=== PATIENT | male | born 1990 | race Caucasian/White ===

== ENCOUNTER 2017-08-29 14:44 | Emergency (ER) | payer OTHER, MEDICAID, SELFPAY | END 2017-08-29 19:30 | disposition home or self-care (01) | PROVIDERS: Emergency Provider Emergency Medicine; Family Provider Family Medicine; PCP Family Medicine; Visit Provider Emergency Medicine | DX: F10.920 Alcohol use, unspecified with intoxication, uncomplicated (principal) | CPT/HCPCS: 80053; 80305; 80320; 85025; 85610; 85730; 99058; 99284 ==

== ENCOUNTER 2017-08-29 22:35 | Emergency (ER) | payer OTHER, MEDICAID, SELFPAY | END 2017-08-30 08:00 | disposition home or self-care (01) | PROVIDERS: Emergency Provider Emergency Medicine; Family Provider Family Medicine; PCP Family Medicine; Visit Provider Emergency Medicine | DX: F10.929 Alcohol use, unspecified with intoxication, unspecified (principal) | CPT/HCPCS: 80053; 80305; 80320; 85025; 85610; 85730; 99058; 99284 ==

== ENCOUNTER 2017-09-11 13:21 | Inpatient (IN) | payer OTHER, MEDICAID, SELFPAY | END 2017-09-12 19:12 | DRG 896 | PROVIDERS: Admitting Provider Internal Medicine; Emergency Provider Emergency Medicine; Family Provider Family Medicine; PCP Family Medicine; Visit Provider Internal Medicine | DX: F10.220 Alcohol dependence with intoxication, uncomplicated (principal); R40.2112 Coma scale, eyes open, never, at arrival to emergency department; R40.2212 Coma scale, best verbal response, none, at arrival to emergency department; E87.0 Hyperosmolality and hypernatremia; Y90.8 Blood alcohol level of 240 mg/100 ml or more; F50.9 Eating disorder, unspecified; F32.9 Major depressive disorder, single episode, unspecified; R40.2332 Coma scale, best motor response, abnormal flexion, at arrival to emergency department; F17.210 Nicotine dependence, cigarettes, uncomplicated; Z91.5 Personal history of self-harm; F41.9 Anxiety disorder, unspecified | CPT/HCPCS: 36415; 36600; 43753; 70450; 71010; 71045; 80048; 80053; 80305; 80320; 80329; 82805; 85025; 87797; 94002; 94799; 96374; 96375; 99058; 99291; G0480; J1650; J2250; J2704 ==

== ENCOUNTER 2017-10-21 22:20 | Inpatient (IN) | payer OTHER, MEDICAID, SELFPAY ==
--- NOTE | 2017-10-21 22:23 | DI.RAD.S_ITS ---
PROCEDURE: XR CHEST 1V INDICATIONS: intubated TECHNIQUE: One view of the chest was acquired. COMPARISON: [facility], CHEST 1 VIEW, 09/11/2017, 13:36. [facility], CHEST 1 VIEW, 07/16/2017, 8:46. [facility], CHEST 1 VIEW, 07/14/2017, 8:35. FINDINGS: Surgical changes and devices: Endotracheal tube in normal position except its tip is at the upper margin of the medial clavicular heads rather than the lower margin. Lungs and pleura: No pleural effusions or pneumothorax. Lungs are abnormal with asymmetric increased radiodensity over the right lung suggestive of right lung aspiration or pneumonia. Mediastinum: Mediastinal contours appear normal. Heart size is normal. Bones and chest wall: No suspicious bony lesions. Overlying soft tissues appear unremarkable. IMPRESSION: Mild right lung aspiration or pneumonia, endotracheal tube tip at the upper margin of the medial clavicular heads bilaterally. Consider advancing approximately 2 cm. Dictated by: Josse Grubbs M.D. on 10/22/2017 at 8:40 Approved by: Josse Grubbs M.D. on 10/22/2017 at 8:41
--- NOTE | 2017-10-21 22:23 | DI.CT.S_ITS ---
PROCEDURE: CT HEAD/BRAIN WO CON INDICATIONS: Acute mental status change TECHNIQUE: Noncontrast 4.5 mm thick angled axial sections acquired from the foramen magnum to the vertex, with coronal and sagittal reformats. For radiation dose reduction, the following was used: automated exposure control, adjustment of mA and/or kV according to patient size. COMPARISON: [facility], CT, HEAD WITHOUT CONTRAST, 09/11/2017, 15:14. [facility], CT, HEAD WITHOUT CONTRAST, 07/13/2017, 8:24. [facility], CT, HEAD WITHOUT CONTRAST, 07/10/2017, 20:29. [facility], CT, HEAD WITHOUT CONTRAST, 05/30/2017, 16:33. [facility], CT, HEAD WITHOUT CONTRAST, 05/22/2017, 21:41. [facility], CT, HEAD WITHOUT CONTRAST, 05/11/2017, 20:36. [facility], CT, HEAD WITHOUT CONTRAST, 05/07/2017, 13:15. FINDINGS: Image quality: Excellent. CSF spaces: Basal cisterns are patent. No extra-axial fluid collections. Ventricles are normal in size and shape. Brain: No midline shift. No intracranial masses or hemorrhage. Dey-white matter interface is normal. Skull and face: Calvarium and visualized facial bones are intact, without suspicious lesions. Presence of endotracheal tube is noted. Sinuses: Bilateral maxillary sinus mucus retention cysts versus polyps. The mastoids are clear. IMPRESSION: No acute intracranial disease process. Dictated by: Vera Wan MD, PhD on 10/22/2017 at 7:34 Approved by: Vera Wan MD, PhD on 10/22/2017 at 7:38
[2017-10-21 22:25] VITALS: BP 118/85; PULSE 76; RESP 12; TEMP 36.5; O2SAT 100; BMI 22.8
[2017-10-21 22:31] VITALS: PULSE 91; RESP 12; O2SAT 100
--- NOTE | 2017-10-21 22:39 | PC.NURSE ---
Now to CT with MILLA Montalvo and RT
[2017-10-21 22:44] LABS: Add Manual Diff / Slide Review NO; Basophils Percent Auto 0.8 % (0-2); Eosinophils Percent Auto 0.6 % (2-4); Hematocrit 43.1 % (41-53); Hemoglobin 14.8 g/dL (13.5-17.5); Lymphocytes Percent Auto 50.8 % (25-40); Mean Corpuscular HGB Conc 34.3 % (30-36); Mean Corpuscular Hemoglobin 31.4 PG (26-34); Mean Corpuscular Volume 91.3 fL (80-100); Monocytes Percent Auto 8.1 % (3-14); Neutrophils Absolute Auto 2600 /uL (3000-5900); Neutrophils Percent Auto 39.7 % (50-75); Platelet Count 102 X10^3/uL (150-400); Red Blood Cell Count 4.72 X10^6/uL (4.5-5.9); Red Cell Distribution Width 12.6 % (11.6-14.8); White Blood Cell Count 6.6 X10^3/uL (4.5-11.0)
[2017-10-21 22:54] VITALS: BP 120/72; PULSE 68; RESP 12; O2SAT 100
[2017-10-21 22:54] LABS: Acetaminophen < 10 ug/dL (10-30); Alanine Aminotransferase 129 IU/L (21-72); Albumin 4.4 g/dL (3.5-5.0); Albumin Globulin Ratio 1.4 (1.0-2.8); Alkaline Phosphatase 53 U/L (38-126); Aspartate Aminotransferase 109 IU/L (17-59); BUN Creatinine Ratio 21.4 (6-22); Bilirubin Total 0.5 mg/dL (0.2-1.3); Bilirubin Unconjugated 0.2 mg/dL (0.0-1.1); Blood Urea Nitrogen 15 mg/dL (9-20); Calcium 8.2 mg/dL (8.4-10.2); Carbon Dioxide 22 mmol/L (22-32); Chloride 107 mmol/L (98-107); Estimated Glomerular Filt Rate > 60.0 mL/min (>60); Globulin 3.2 g/dL (1.7-4.1); Glucose 96 mg/dL (70-100); HEMOLYSIS 17 (0-50); Lactate (Lactic Acid) 2.1 mmol/L (0.7-2.1); Sodium 149 mmol/L (137-145); Total Protein 7.6 g/dL (6.3-8.2)
[2017-10-21] MEDS: SODIUM CHLORIDE 0.9% 1,000 ML 150 ML IV (22:54)
[2017-10-21 22:59] LABS: Salicylate < 1.0 mg/dL (<20)
[2017-10-21 23:02] LABS: Fractionated Inspired Oxygen 100; HCO3 ABG 23 mmol/L (23-27); Oxygen Saturation ABG 100 % (95-100); PCO2 ABG 40.2 mmHg (35-45); PO2 ABG 207 mmHg (80-105); TCO2 ABG 25 mmol/L (23-27); pH ABG 7.37 (7.35-7.45)
[2017-10-21 23:06] LABS: Ethanol (ETOH) 538 mg/dL
[2017-10-21 23:08] VITALS: BP 117/71; PULSE 92; RESP 13; O2SAT 100
[2017-10-21 23:35] LABS: Urine Amphetamines Negative (Negative); Urine Barbiturates Negative (Negative); Urine Benzodiazepines Negative (Negative); Urine Cocaine Negative (Negative); Urine MDMA Negative (Negative); Urine Methadone Negative (Negative); Urine Methamphetamines Negative (Negative); Urine Morphine/Opi cutoff 2000 Negative (Negative); Urine Oxycodone Negative (Negative); Urine Phencyclidine Negative (Negative); Urine Tetrahydrocannabinol Positive (Negative); Urine Tricyclic Antidepressant Negative (Negative)
[2017-10-21 23:44] VITALS: BP 117/70; PULSE 63; RESP 12; O2SAT 100
[2017-10-22] VITALS (19 sets, daily range): BP systolic 94–162; BP diastolic 54–92; PULSE 61–125; RESP 12–20; TEMP 36.4–37.6; O2SAT 94–100; BMI 22.8; BMI 23.5
[2017-10-22] MEDS: PROPOFOL 1,000 MG/100 ML VIAL 2.1 MG IV (02:30)
--- NOTE | 2017-10-22 03:39 | ED.OVERDOSE ---
HPI - Overdose General Chief Complaint: Toxicology Problem Stated Complaint: Possible Overdose Time Seen by Provider: 10/21/17 22:22 Source: family and EMS Mode of arrival: EMS Limitations: altered mental status History of Present Illness HPI Narrative: Patient with long history of severe alcohol abuse presents to the emergency department via EMS after being found down, unresponsive and not guarding his airway. Family friend had notified EMS and on their arrival they found him in this condition. He is known to drink 1/5 of alcohol morning and another 5th night. There is some question as to whether the patient may have also taken his roommates Percocet. Was administered Narcan immediately on arrival and after there was no improvement the patient was intubated with etomidate and succinylcholine and transported to the emergency department for further evaluation. MD complaint: accidental overdose Onset (ago): hour(s) Timing confirmed by: family member Intent: unknown How Overdose Was Discovered: family/friend present at time Context: Accidental Overdose: uncertain what happened Treatments Prior to Arrival: oxygen, narcan and IV fluids Related Data Previous Rx's Medication Instructions Recorded ondansetron [Zofran ODT] 4 mg SUBLINGUAL Q6HP PRN #20 odt 06/01/17 Allergies Allergy/AdvReac Type Severity Reaction Status Date / Time shrimp [SHRIMP] Allergy Severe THROAT Unverified 08/28/17 12:11 SWELLING/HIVES diazepam [From VALIUM] Allergy Intermediate LEG Unverified 08/28/17 12:11 SWELLING haloperidol [From HALDOL] Allergy Unknown DYSTONIA Unverified 08/28/17 12:11 naproxen [NAPROXEN] AdvReac Mild NAUSEA/GI Unverified 08/28/17 12:11 DISTRESS Review of Systems Review of Systems due to endotracheal tube PFSH Family History Grandfather Type 2 diabetes mellitus without complication, unspecified termite control 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 No obvious signs of trauma or external injury Initial Vital Signs Initial Vital Signs: Vital Signs Temperature 97.7 F 10/21/17 22:25 Pulse Rate 76 10/21/17 22:25 Respiratory Rate 12 10/21/17 22:25 Blood Pressure 118/85 H 10/21/17 22:25 Pulse Oximetry 100 10/21/17 22:25 Const General: patient mechanically ventilated Nutritional Appearance: average body habitus Limitations: altered mental status HENNC Head: normal to inspection Ears: hearing grossly normal bilaterally Nose: external nose normal Face and sinus: normal facial exam Mouth: oral mucosae normal Teeth and gingiva: dentition normal Eyes General: appearance normal, both eyes and all related structures Eyelids: eyelids normal Conjunctivae: conjunctivae normal Sclera: sclerae normal Neck Neck: normal visual inspection, trachea midline, No lymphadenopathy, No midline deformity and No JVD Lymphatic: No lymphedema Resp Effort & Inspection: normal respiratory effort, able to speak in complete sentences, no respiratory distress and no use of accessory muscles Auscultation: clear to auscultation bilaterally, no rales, no rhonchi and no wheezes GI Inspection: non-distended Palpation: soft, no hepatosplenomegaly, No guarding, No pulsatile mass and No tender Auscultation: normal bowel sounds Skin General: no rashes or lesions noted, No jaundice and No petechiae Neuro Other: Patient is sedated and intubated Extrem General: normal to inspection and no pedal edema Scores GCS [place] coma scale eye opening: None [place] coma scale verbal response: None [place] coma scale motor response: None Izzy coma scale total score: 3 Course Orders Ordered: ED Orders 10/21/17 22:23 CT head/brain wo con Stat XR chest 1V Stat 10/21/17 22:34 Acetaminophen Stat Complete Blood Count AUTO DIFF Stat Comprehensive Metabolic Panel Stat Ethanol (ETOH) Stat Hepatic (Liver) Panel Stat Lactate (Lactic Acid) Stat Salicylate Stat 10/21/17 22:56 ABG [Arterial Blood Gas] Stat 10/21/17 23:00 Rapid Drug Screen, Urine Stat 10/22/17 01:00 MRSA PCR Stat 10/22/17 02:12 Consult to Dietitian, Adult Routine Consult to [employer] Routine Acetaminophen (Tylenol) 650 mg [place] Q6HR PRN PRN Reason: As Needed for Fever/Mild Pain Sodium Chloride (Normal Saline 0.9%) 1,000 mls @ 150 mls/hr IV CONT HOLGER Last Infusion: 10/22/17 01:00 Dose: 150 mls/hr Infusion: 10/22/17 00:49 Dose: 0 mls/hr Admin: 10/21/17 22:54 Dose: 150 mls/hr Propofol (Propofol) 1,000 mg in 100 mls @ 2.1 mls/hr IV TITRATE HOLGER; Protocol Last Admin: 10/22/17 02:30 Dose: 2.1 mls/hr Consultations Consultation #1: Dr. Sagastume at happy to accept this patient on his service Vital Signs - 8 hr 10/21/17 22:25 10/21/17 22:54 10/21/17 23:08 Temperature 97.7 F Pulse Rate 76 68 92 H Respiratory Rate 12 12 13 Blood Pressure 118/85 H Blood Pressure [Left Arm] 120/72 117/71 Pulse Oximetry 100 100 100 10/21/17 23:44 10/22/17 00:58 10/22/17 02:00 Temperature 98 F 97.8 F Pulse Rate 63 61 66 Respiratory Rate 12 15 12 Blood Pressure 123/84 H 122/68 H Blood Pressure [Left Arm] 117/70 Pulse Oximetry 100 99 98 10/22/17 03:04 Temperature Pulse Rate 71 Respiratory Rate 12 Blood Pressure 100/62 Blood Pressure [Left Arm] Pulse Oximetry 98 MDM - Overdose Differential Diagnosis Likely poisoning by opiate or related narcotic, drug overdose, acetaminophen overdose and accidental drug ingestion Medical Records Attestation: I reviewed the patient's medical records. Lab Data Attestation: I reviewed the patient's lab results. Result diagrams: 10/21/17 22:34 10/21/17 22:34 Lab Results 10/21/17 10/21/17 10/21/17 Range/Units 22:34 22:34 22:34 WBC 6.6 (4.5-11.0) X10^3/uL RBC 4.72 (4.5-5.9) X10^6/uL Hgb 14.8 (13.5-17.5) g/dL Hct 43.1 (41-53) % MCV 91.3 (80-100) fL MCH 31.4 (26-34) PG MCHC 34.3 (30-36) % RDW 12.6 (11.6-14.8) % Plt Count 102 L (150-400) X10^3/uL Neut % (Auto) 39.7 L (50-75) % Lymph % (Auto) 50.8 H (25-40) % [place] % (Auto) 8.1 (3-14) % Eos % (Auto) 0.6 L (2-4) % Baso % (Auto) 0.8 (0-2) % Neut # (Auto) 2600 L (6808-0434) /uL ABG pH (7.35-7.45) ABG pCO2 (35-45) mmHg ABG pO2 (80-105) mmHg ABG HCO3 (23-27) mmol/L ABG Total CO2 (23-27) mmol/L ABG O2 Saturation (95-100) % ABG Base Excess (-2-3) mmol/L FiO2 Sodium 149 H (137-145) mmol/L Potassium 4.0 (3.4-5.1) mmol/L Chloride 107 (98-107) mmol/L Carbon Dioxide 22 (22-32) mmol/L BUN 15 (9-20) mg/dL Creatinine 0.70 (0.66-1.25) mg/dL Estimated GFR > 60.0 (>60) mL/min BUN/Creatinine Ratio 21.4 (6-22) Glucose 96 (70-100) mg/dL Lactate 2.1 (0.7-2.1) mmol/L Calcium 8.2 L (8.4-10.2) mg/dL Total Bilirubin 0.5 (0.2-1.3) mg/dL Conjugated Bilirubin 0.0 (0.0-0.3) md/dL Unconjugated Bilirubin 0.2 (0.0-1.1) mg/dL AST 109 H (17-59) IU/L ALT 129 H (21-72) IU/L Alkaline Phosphatase 53 (38-126) U/L Total Protein 7.6 (6.3-8.2) g/dL Albumin 4.4 (3.5-5.0) g/dL Globulin 3.2 (1.7-4.1) g/dL Albumin/Globulin Ratio 1.4 (1.0-2.8) Nasal Screen MRSA (PCR) (Negative) Salicylates < 1.0 (<20) mg/dL Urine Opiates Screen (Negative) Ur Oxycodone Screen (Negative) Urine Methadone Screen (Negative) Acetaminophen < 10 L (10-30) ug/dL Ur Barbiturates Screen (Negative) U Tricyclic Antidepress (Negative) Ur Phencyclidine Scrn (Negative) Ur Amphetamines Screen (Negative) U Methamphetamines Scrn (Negative) Ur MDMA Scrn (Ecstasy) (Negative) U Benzodiazepines Scrn (Negative) Urine Cocaine Screen (Negative) U Marijuana (THC) Screen (Negative) Ethyl Alcohol 538 H* mg/dL 10/21/17 10/21/17 10/22/17 Range/Units 22:56 23:00 01:00 WBC (4.5-11.0) X10^3/uL RBC (4.5-5.9) X10^6/uL Hgb (13.5-17.5) g/dL Hct (41-53) % MCV (80-100) fL MCH (26-34) PG MCHC (30-36) % RDW (11.6-14.8) % Plt Count (150-400) X10^3/uL Neut % (Auto) (50-75) % Lymph % (Auto) (25-40) % [place] % (Auto) (3-14) % Eos % (Auto) (2-4) % Baso % (Auto) (0-2) % Neut # (Auto) (3943-8463) /uL ABG pH 7.37 (7.35-7.45) ABG pCO2 40.2 (35-45) mmHg ABG pO2 207 H (80-105) mmHg ABG HCO3 23 (23-27) mmol/L ABG Total CO2 25 (23-27) mmol/L ABG O2 Saturation 100 (95-100) % ABG Base Excess -2.0 (-2-3) mmol/L FiO2 100 Sodium (137-145) mmol/L Potassium (3.4-5.1) mmol/L Chloride (98-107) mmol/L Carbon Dioxide (22-32) mmol/L BUN (9-20) mg/dL Creatinine (0.66-1.25) mg/dL Estimated GFR (>60) mL/min BUN/Creatinine Ratio (6-22) Glucose (70-100) mg/dL Lactate (0.7-2.1) mmol/L Calcium (8.4-10.2) mg/dL Total Bilirubin (0.2-1.3) mg/dL Conjugated Bilirubin (0.0-0.3) md/dL Unconjugated Bilirubin (0.0-1.1) mg/dL AST (17-59) IU/L ALT (21-72) IU/L Alkaline Phosphatase (38-126) U/L Total Protein (6.3-8.2) g/dL Albumin (3.5-5.0) g/dL Globulin (1.7-4.1) g/dL Albumin/Globulin Ratio (1.0-2.8) Nasal Screen MRSA (PCR) Negative for mrsa (Negative) Salicylates (<20) mg/dL Urine Opiates Screen Negative (Negative) Ur Oxycodone Screen Negative (Negative) Urine Methadone Screen Negative (Negative) Acetaminophen (10-30) ug/dL Ur Barbiturates Screen Negative (Negative) U Tricyclic Antidepress Negative (Negative) Ur Phencyclidine Scrn Negative (Negative) Ur Amphetamines Screen Negative (Negative) U Methamphetamines Scrn Negative (Negative) Ur MDMA Scrn (Ecstasy) Negative (Negative) U Benzodiazepines Scrn Negative (Negative) Urine Cocaine Screen Negative (Negative) U Marijuana (THC) Screen Positive H (Negative) Ethyl Alcohol mg/dL ABG Data Attestation: I personally reviewed and interpreted this ABG as follows: Imaging Data CT scan - head: Radiologist's impression: No acute process Discharge Plan Departure Patient Disposition: Admitted As Inpatient Clinical Impression: Acute respiratory failure with hypoxia, Alcohol overdose Discharge Date/Time: 10/22/17 00:44 Interventions: ED Discharge Assessment Last Done: 10/22/17 00:44 Admit Date/Time: 10/22/17 00:13 Admit Provider: Dhaval Sagastume V
--- NOTE | 2017-10-22 04:20 | PC.ADMIT ---
[id number] 0045-Patient brought to ICU, ETT in place, on ventilator per Dr Sagastume to maintain vent settings throughout night, currently FIO2 40% TV 500 PEEP 5 RR 12, patient is breathing with vent, SpO2 100%. OGT to LIS, small amount of thin blood tinged fluid returned, copious oral secretions sx. Patient is unresponsive, except will move head and extremeties to painful stimuli. See assessment notes and interventions. Admission Note: The patient,Abhinav Herr,27 y/o, was given written information regarding hospital policies, unit procedures and contact persons. Patient's smoking status: . Vital Signs - 8 hr 10/21/17 22:25 10/21/17 22:54 10/21/17 23:08 Temperature 97.7 F Pulse Rate 76 68 92 H Respiratory Rate 12 12 13 Blood Pressure 118/85 H Blood Pressure [Left Arm] 120/72 117/71 Pulse Oximetry 100 100 100 10/21/17 23:44 10/22/17 00:58 10/22/17 02:00 Temperature 98 F 97.8 F Pulse Rate 63 61 66 Respiratory Rate 12 15 12 Blood Pressure 123/84 H 122/68 H Blood Pressure [Left Arm] 117/70 Pulse Oximetry 100 99 98 10/22/17 03:04 10/22/17 04:00 Temperature 97.6 F Pulse Rate 71 64 Respiratory Rate 12 12 Blood Pressure 100/62 119/67 Blood Pressure [Left Arm] Pulse Oximetry 98 98
[2017-10-22] MEDS: MIDAZOLAM 5 MG/5 ML VIAL IV (06:20)
--- NOTE | 2017-10-22 07:37 | PC.NURSE ---
Patient was calmly sedated on vent with propofol gtt at 10mcg/min starting at 0230 r/t increased movement and thrashing head during cough and sx. At 0600, patient suddenly woke, was responsive and following directions, then became agitated and aggresive, attempting to pull out ETT and other lines, cyber security specialist called along with 5 other staff members. Propofol gtt titrated up to >125mcg/min with no effect, IV is patent. Dr Sagastume notified of above information, order obtained for Versed 5mg IV Now-Given with effect, propofol then titrated back down, now at 50mcg/min. Dr Sagastume in to see patient, who is now sedated with VSS. Report given to day RN.
[2017-10-22] MEDS: SODIUM CHLORIDE 0.9% 1,000 ML 150 ML IV (07:52)
--- NOTE | 2017-10-22 09:43 | PM.HP.1 ---
History of Present Illness Date Patient Seen: 10/22/17 Time Patient Seen: 06:45 Chief complaint: Hypoxic Respirtory Failure, Alcohol Overdose Narrative: The patient was hospitalized at this facility last month, 1 of numerous hospitalizations for recurrent recidivistic severe alcoholism with a lawn line of multiple life-threatening presentations, including several episodes of intubation for airway protection due to profound alcohol intoxication, and most recently discharged to to inpatient alcohol rehabilitation treatment at the [facility] in [place]. He was treated there for 3 days then released. Details regarding this are unclear, and it was the intent to pursue [place] 71.05.020 ([place] Law[place] at that time. His reports that for at least the last week he has been drinking 2/5 of liquor daily. There was some question yesterday that he may have taken someone else's Percocet. He was unresponsive, and found down by paramedics, and intubated for airway protection. He is admitted for further management and evaluation. Patient History Medical History Alcoholism (Acute) Depression (Acute) Eating disorder (Acute) Epilepsy (Acute) Low back pain (Acute) Family & Social History Family History: Reviewed 10/22/17 by Dhaval Sagastume MD Safety & Behavioral: Suicidal Ideation Description Frequent Suicide Plan Description High Lethality Tobacco & Substance use: alcohol intake frequency 3 or more drinks per day Substance Use Type unknown Meds Home Medications Medication Instructions Recorded Confirmed Type ondansetron [Zofran ODT] 4 mg SUBLINGUAL Q6HP PRN #20 odt 06/01/17 10/22/17 Rx Allergies Allergy/AdvReac Type Severity Reaction Status Date / Time shrimp [SHRIMP] Allergy Severe THROAT Unverified 08/28/17 12:11 SWELLING/HIVES diazepam [From VALIUM] Allergy Intermediate LEG Unverified 08/28/17 12:11 SWELLING haloperidol [From HALDOL] Allergy Unknown DYSTONIA Unverified 08/28/17 12:11 naproxen [NAPROXEN] AdvReac Mild NAUSEA/GI Unverified 08/28/17 12:11 DISTRESS Review of Systems Review of Systems All systems reviewed & are unremarkable except as noted in HPI and below Exam Vital Signs (past 8 hours): Vital Signs - 8 hr 10/22/17 02:00 10/22/17 03:04 06/05/18 04:00 Temperature 97.8 F 97.6 F Pulse Rate 66 71 64 Respiratory Rate 12 12 12 Blood Pressure 122/68 H 100/62 119/67 Pulse Oximetry 98 98 98 10/22/17 05:00 10/22/17 06:56 10/22/17 07:45 Temperature 97.6 F 98 F Pulse Rate 64 89 78 Respiratory Rate 12 14 12 Blood Pressure 102/54 L 99/64 105/67 Pulse Oximetry 100 99 99 10/22/17 08:32 10/22/17 09:20 Temperature 98.8 F Pulse Rate 80 Respiratory Rate 12 Blood Pressure 105/68 Pulse Oximetry 100 100 Pulse Oximetry 100 Oxygen Delivery Method Mechanical Ventilation Oxygen Flow Rate 15 Narrative Exam Narrative: General: The patient is on a propofol infusion with intermittent midazolam boluses, currently, though reportedly had been agitated moments before arrival, intubated on mechanical ventilation HEENT: Pupils 1 mm, round, reactive, mucous membranes appear pink and moist, oral tracheal tube in place Neck: Supple Lungs: Clear to auscultation anteriorly Cardiac: Regular rate and rhythm without appreciable murmur Abdomen: Soft, nontender Extremities: Thin, without edema Dermatologic: Left ring finger with mild superficial abrasion adjacent to ring on PIP, no other skin lesions evident Neurologic: Sedated, unresponsive though recently moving all 4 extremities without focal deficits evident per nursing Objective Imaging Chest x-ray: Radiologist's impression: Mild right lung aspiration or pneumonia, endotracheal tube tip at the upper margin of the medial clavicular heads bilaterally. Consider advancing approximately [address] scan - head: Radiologist's impression: No acute intracranial disease process. Labs Result Diagrams: 10/21/17 22:34 10/21/17 22:34 Labs: Laboratory Results - last 24 hr 10/21/17 10/21/17 10/21/17 22:34 22:34 22:34 WBC 6.6 RBC 4.72 Hgb 14.8 Hct 43.1 MCV 91.3 MCH 31.4 MCHC 34.3 RDW 12.6 Plt Count 102 L Neut % (Auto) 39.7 L Lymph % (Auto) 50.8 H [place] % (Auto) 8.1 Eos % (Auto) 0.6 L Baso % (Auto) 0.8 Neut # (Auto) 2600 L ABG pH ABG pCO2 ABG pO2 ABG HCO3 ABG Total CO2 ABG O2 Saturation ABG Base Excess FiO2 Sodium 149 H Potassium 4.0 Chloride 107 Carbon Dioxide 22 BUN 15 Creatinine 0.70 Estimated GFR > 60.0 BUN/Creatinine Ratio 21.4 Glucose 96 Lactate 2.1 Calcium 8.2 L Total Bilirubin 0.5 Conjugated Bilirubin 0.0 Unconjugated Bilirubin 0.2 AST 109 H ALT 129 H Alkaline Phosphatase 53 Total Protein 7.6 Albumin 4.4 Globulin 3.2 Albumin/Globulin Ratio 1.4 Nasal Screen MRSA (PCR) Salicylates < 1.0 Urine Opiates Screen Ur Oxycodone Screen Urine Methadone Screen Acetaminophen < 10 L Ur Barbiturates Screen U Tricyclic Antidepress Ur Phencyclidine Scrn Ur Amphetamines Screen U Methamphetamines Scrn Ur MDMA Scrn (Ecstasy) U Benzodiazepines Scrn Urine Cocaine Screen U Marijuana (THC) Screen Ethyl Alcohol 538 H* 10/21/17 10/21/17 10/22/17 22:56 23:00 01:00 WBC RBC Hgb Hct MCV MCH MCHC RDW Plt Count Neut % (Auto) Lymph % (Auto) [place] % (Auto) Eos % (Auto) Baso % (Auto) Neut # (Auto) ABG pH 7.37 ABG pCO2 40.2 ABG pO2 207 H ABG HCO3 23 ABG Total CO2 25 ABG O2 Saturation 100 ABG Base Excess -2.0 FiO2 100 Sodium Potassium Chloride Carbon Dioxide BUN Creatinine Estimated GFR BUN/Creatinine Ratio Glucose Lactate Calcium Total Bilirubin Conjugated Bilirubin Unconjugated Bilirubin AST ALT Alkaline Phosphatase Total Protein Albumin Globulin Albumin/Globulin Ratio Nasal Screen MRSA (PCR) Negative for mrsa Salicylates Urine Opiates Screen Negative Ur Oxycodone Screen Negative Urine Methadone Screen Negative Acetaminophen Ur Barbiturates Screen Negative U Tricyclic Antidepress Negative Ur Phencyclidine Scrn Negative Ur Amphetamines Screen Negative U Methamphetamines Scrn Negative Ur MDMA Scrn (Ecstasy) Negative U Benzodiazepines Scrn Negative Urine Cocaine Screen Negative U Marijuana (THC) Screen Positive H Ethyl Alcohol Assessment & Plan Plan: Assessment/Plan Narrative: 1. Acute severe alcohol intoxication, intubated for airway protection. 2. Chronic severe and refractory alcoholism. 3. Depression. 4. Abnormal liver function tests, likely due to alcoholic hepatitis. 4. Disposition. The patient will remain in the ICU intubated for airway protection. He is clearly at high risk for given that this is the fourth intubation since June due to severe alcohol intoxication. We will ask mental health services to provide a proper evaluation given his severe refractory alcoholism. At this point, he is not medically clear for that, but we would like to have that in place so that when he is extubated, all measures are available to allow for proper evaluation including involuntary custodial due to his high risk of or permanent disability. This situation is a resolved of grave medical disability from alcoholism and probable underlying mental health disorders which have contributed to his extreme presentation. Quality VTE Deep Vein Thrombosis/Pulmonary Embolism Present on Admission: No
--- NOTE | 2017-10-22 09:48 | P.HP_ITS ---
History of Present Illness Date Patient Seen: 10/22/17 Time Patient Seen: 06:45 Chief complaint: Hypoxic Respirtory Failure, Alcohol Overdose Narrative: The patient was hospitalized at this facility last month, 1 of numerous hospitalizations for recurrent recidivistic severe alcoholism with a lawn line of multiple life-threatening presentations, including several episodes of intubation for airway protection due to profound alcohol intoxication, and most recently discharged to to inpatient alcohol rehabilitation treatment at the [facility] in [place]. He was treated there for 3 days then released. Details regarding this are unclear, and it was the intent to pursue [place] 71.05.020 ([place] at that time. His reports that for at least the last week he has been drinking 2/5 of liquor daily. There was some question yesterday that he may have taken someone else's Percocet. He was unresponsive, and found down by paramedics, and intubated for airway protection. He is admitted for further management and evaluation. Patient History Medical History Alcoholism (Acute) Depression (Acute) Eating disorder (Acute) Epilepsy (Acute) Low back pain (Acute) Family & Social History Family History: Reviewed 10/22/17 by Dhaval Sagastume MD Safety & Behavioral: Suicidal Ideation Description Frequent Suicide Plan Description High Lethality Tobacco & Substance use: alcohol intake frequency 3 or more drinks per day Substance Use Type unknown Meds Home Medications Medication Instructions Recorded Confirmed Type ondansetron [Zofran ODT] 4 mg SUBLINGUAL Q6HP PRN #20 odt 06/01/17 10/22/17 Rx Allergies Allergy/AdvReac Type Severity Reaction Status Date / Time shrimp [SHRIMP] Allergy Severe THROAT Unverified 08/28/17 12:11 SWELLING/HIVES diazepam [From VALIUM] Allergy Intermediate LEG Unverified 08/28/17 12:11 SWELLING haloperidol [From HALDOL] Allergy Unknown DYSTONIA Unverified 08/28/17 12:11 naproxen [NAPROXEN] AdvReac Mild NAUSEA/GI Unverified 08/28/17 12:11 DISTRESS Review of Systems Review of Systems All systems reviewed & are unremarkable except as noted in HPI and below Exam Vital Signs (past 8 hours): Vital Signs - 8 hr 3 10/22/17 02:00 10/22/17 03:04 10/22/17 04:00 Temperature 97.8 F 97.6 F Pulse Rate 66 71 64 Respiratory Rate 12 12 12 Blood Pressure 122/68 H 100/62 119/67 Pulse Oximetry 98 98 98 3 10/22/17 05:00 10/22/17 06:56 10/22/17 07:45 Temperature 97.6 F 98 F Pulse Rate 64 89 78 Respiratory Rate 12 14 12 Blood Pressure 102/54 L 99/64 105/67 Pulse Oximetry 100 99 99 3 10/22/17 08:32 10/22/17 09:20 Temperature 98.8 F Pulse Rate 80 Respiratory Rate 12 Blood Pressure 105/68 Pulse Oximetry 100 100 Pulse Oximetry 100 Oxygen Delivery Method Mechanical Ventilation Oxygen Flow Rate 15 Narrative Exam Narrative: General: The patient is on a propofol infusion with intermittent midazolam boluses, currently, though reportedly had been agitated moments before arrival, intubated on mechanical ventilation HEENT: Pupils 1 mm, round, reactive, mucous membranes appear pink and moist, oral tracheal tube in place Neck: Supple Lungs: Clear to auscultation anteriorly Cardiac: Regular rate and rhythm without appreciable murmur Abdomen: Soft, nontender Extremities: Thin, without edema Dermatologic: Left ring finger with mild superficial abrasion adjacent to ring on PIP, no other skin lesions evident Neurologic: Sedated, unresponsive though recently moving all 4 extremities without focal deficits evident per nursing Objective Imaging Chest x-ray: Radiologist's impression: Mild right lung aspiration or pneumonia, endotracheal tube tip at the upper margin of the medial clavicular heads bilaterally. Consider advancing approximately [address] scan - head: Radiologist's impression: No acute intracranial disease process. Labs Result Diagrams: 10/21/17 22:34 10/21/17 22:34 Labs: Laboratory Results - last 24 hr 10/21/17 10/21/17 10/21/17 22:34 22:34 22:34 WBC 6.6 RBC 4.72 Hgb 14.8 Hct 43.1 MCV 91.3 MCH 31.4 MCHC 34.3 RDW 12.6 Plt Count 102 L Neut % (Auto) 39.7 L Lymph % (Auto) 50.8 H Grundy % (Auto) 8.1 Eos % (Auto) 0.6 L Baso % (Auto) 0.8 Neut # (Auto) 2600 L ABG pH ABG pCO2 ABG pO2 ABG HCO3 ABG Total CO2 ABG O2 Saturation ABG Base Excess FiO2 Sodium 149 H Potassium 4.0 Chloride 107 Carbon Dioxide 22 BUN 15 Creatinine 0.70 Estimated GFR > 60.0 BUN/Creatinine Ratio 21.4 Glucose 96 Lactate 2.1 Calcium 8.2 L Total Bilirubin 0.5 Conjugated Bilirubin 0.0 Unconjugated Bilirubin 0.2 AST 109 H ALT 129 H Alkaline Phosphatase 53 Total Protein 7.6 Albumin 4.4 Globulin 3.2 Albumin/Globulin Ratio 1.4 Nasal Screen MRSA (PCR) Salicylates < 1.0 Urine Opiates Screen Ur Oxycodone Screen Urine Methadone Screen Acetaminophen < 10 L Ur Barbiturates Screen U Tricyclic Antidepress Ur Phencyclidine Scrn Ur Amphetamines Screen U Methamphetamines Scrn Ur MDMA Scrn (Ecstasy) U Benzodiazepines Scrn Urine Cocaine Screen U Marijuana (THC) Screen Ethyl Alcohol 538 H* 10/21/17 10/21/17 10/22/17 22:56 23:00 01:00 WBC RBC Hgb Hct MCV MCH MCHC RDW Plt Count Neut % (Auto) Lymph % (Auto) Grundy % (Auto) Eos % (Auto) Baso % (Auto) Neut # (Auto) ABG pH 7.37 ABG pCO2 40.2 ABG pO2 207 H ABG HCO3 23 ABG Total CO2 25 ABG O2 Saturation 100 ABG Base Excess -2.0 FiO2 100 Sodium Potassium Chloride Carbon Dioxide BUN Creatinine Estimated GFR BUN/Creatinine Ratio Glucose Lactate Calcium Total Bilirubin Conjugated Bilirubin Unconjugated Bilirubin AST ALT Alkaline Phosphatase Total Protein Albumin Globulin Albumin/Globulin Ratio Nasal Screen MRSA (PCR) Negative for mrsa Salicylates Urine Opiates Screen Negative Ur Oxycodone Screen Negative Urine Methadone Screen Negative Acetaminophen Ur Barbiturates Screen Negative U Tricyclic Antidepress Negative Ur Phencyclidine Scrn Negative Ur Amphetamines Screen Negative U Methamphetamines Scrn Negative Ur MDMA Scrn (Ecstasy) Negative U Benzodiazepines Scrn Negative Urine Cocaine Screen Negative U Marijuana (THC) Screen Positive H Ethyl Alcohol Assessment & Plan Plan: Assessment/Plan Narrative: 1. Acute severe alcohol intoxication, intubated for airway protection. 2. Chronic severe and refractory alcoholism. 3. Depression. 4. Abnormal liver function tests, likely due to alcoholic hepatitis. 4. Disposition. The patient will remain in the ICU intubated for airway protection. He is clearly at high risk for given that this is the fourth intubation since June due to severe alcohol intoxication. We will ask mental health services to provide a proper evaluation given his severe refractory alcoholism. At this point, he is not medically clear for that, but we would like to have that in place so that when he is extubated, all measures are available to allow for proper evaluation including involuntary longterm due to his high risk of or permanent disability. This situation is a resolved of grave medical disability from alcoholism and probable underlying mental health disorders which have contributed to his extreme presentation. Quality VTE Deep Vein Thrombosis/Pulmonary Embolism Present on Admission: No
[2017-10-22] MEDS: PROPOFOL 1,000 MG/100 ML VIAL 21.9 MG IV (09:56)
--- NOTE | 2017-10-22 11:28 | PC.NURSE ---
pt awake and extubated at to room air @ 1102- pt calm but impulsive and requested murphy be removed- this was completedand is [facility]
[2017-10-22] MEDS: NICOTINE 7 MG PATCH TOP (12:06)
[2017-10-22] MEDS: MAGNESIUM SULFATE 2 GM, FOLIC ACID 1 MG, THIAMINE 100 MG, MULTIVITAMIN 10 ML in SODIUM ... IV (12:06)
[2017-10-22] MEDS: LORazepam 1 MG TABLET PO ×4 (12:30→23:55)
--- NOTE | 2017-10-22 12:36 | CM.SWNOTE ---
FIXING MACHINE OPERATOR/Note: Reviewed chart. Patient is a 27yr old male admitted to [facility] with respiratory failure secondary to alcohol overdose. Patient's alcohol level upon admit was 538. Urine screen negative for additional substances. Patient intubated in the field for airway protection. Pt. extubated this AM. FIXING MACHINE OPERATOR spoke with Dr. Sagastume and he would like DCR/[facility]MHP called for involuntary placement. After extubation this AM RN reports patient telling staff that he is leaving today after lunch. Regardless of whether he's discharged or not. Staff instructed to call security/police until patient can be cleared by appropriate agency. Patient with extensive h/o alcoholism. Patient has had several visits to the ED and hospital for alcohol related issues in the last month (4). Per MD, patient recently sent to inpatient rehab facility and was released in 3 days? Spoke with RN/Mary and she reports that patient up out of bed preparing to leave. MD reports that patient is medically stable for evaluation by DCR/[facility] but at high risk for or permanent disability given his h/o alcoholism. After discussion with MD and RN it was determined that [facility]/DCR be called immediately. Patient meets guidelines for initiating intervention under state law ([place] Law). Patient clearly involuntary and reports that he wants to go home. Patient denies to MD and staff that he needs help. It was determined with ICU/staff and FIXING MACHINE OPERATOR that if FIXING MACHINE OPERATOR attempted to interview patient it would only contribute to his anxiety and desire to leave. Therefore, placed call to [facility]. All information provided and they will dispatch DCR/[facility] right away. P: Pending outcome of assessment done by [facility]/DCR. KANDI Dickerson
--- NOTE | 2017-10-22 12:45 | PC.NURSE ---
awaiting arrival of cdp to assess pt - he is impulsive and somewhat agiatated, , Cam at bedside
[2017-10-22] MEDS: LORazepam 1 MG TABLET 2 MG PO ×2 (13:42→22:28)
--- NOTE | 2017-10-22 16:51 | PC.NURSE ---
1635 - Patient given ativan per orders. Patient put hand to mouth, took a drink and stated that he took the pill. However patient noted to keep his fingers of his right hand closed. This nurse asked patient to open hand and noted ativan pill that he stated he took in his hand. Patient stated Oh, I thought I took that. Patient then put pill in his mouth, cruched it, and drank some water.
--- NOTE | 2017-10-22 17:29 | PC.NURSE ---
Informed of pt needing to transfer to facility in [place] for treatment. Multiple ambulance transports called to attempt to transfer patient [place]. [facility]ie, [facility] and [facility] unable to transport pt. 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 They do not have crews/or vehicles available tonight. [facility] currently present and notified. also notified.
--- NOTE | 2017-10-22 19:36 | PC.NURSE ---
Addendum entered by Prabha Severino R.N. 10/22/17 20:47: Pt c/o IV site irritating him. IV site visually WNL. Site flushes easily with brisk blood return. Informed pt that when this bag of IVF completed, site can be locked. Pt up ad rajesh in room. Male MAILING SECTION CLERK in room with pt; MAILING SECTION CLERK goes into bathroom with pt also. Monitor wires, phone, Suction tubing, etc. removed from room. Call light and IV pole still in use in room. Pt informed that transportation not available until tomorrow morning. Original Note: barrera bass Pt pleasant and cooperative in room. Pt c/o
[2017-10-23 00:07] VITALS: BP 141/95; PULSE 90; RESP 20; TEMP 37.3; O2SAT 98
[2017-10-23 06:08] VITALS: RESP 20
--- NOTE | 2017-10-23 06:44 | PC.NURSE ---
At midnight, patient awake and cooperative, up ad rajesh, curtain open with staff able to have constant obs, patient is compliant with this. CIWA = 3, says he is a bit anxious, 1mg PO Ativan given per prn order. VSS, RA sats 98%, no respiratory distress, occas cough, no nausea, taking in a general diet. Patient was awake watching TV until 0300, has been sleeping since, RR 20, will allow patient to continue sleeping. Remains 1:1 observation, call light in reach, no wires, cords, or sharp items in room
[2017-10-23] MEDS: NICOTINE 7 MG PATCH TOP (08:23)
[2017-10-23] MEDS: THIAMINE 100 MG TABLET PO (08:23)
[2017-10-23] MEDS: FOLIC ACID 1 MG TABLET PO (08:23)
[2017-10-23] MEDS: MULTIVITAMIN 1 TABLET 1 TAB PO (08:23)
[2017-10-23] MEDS: LORazepam 1 MG TABLET 2 MG PO (08:23)
--- NOTE | 2017-10-23 08:31 | PC.NURSE ---
Addendum entered by Yamil Hernandez R.N. 10/23/17 11:37: Report given to Roger at [facility] at 1130. Original Note: Addendum entered by Yamil Hernandez R.N. 10/23/17 09:41: Call placed to [facility]. Left voice message at 0939 with Kalyani to return phone call regarding giving report. Awaiting return call. Original Note: Addendum entered by Yamil Hernandez R.N. 10/23/17 09:34: [facility] here. Dr. Sagastume at bedside. Instructs to given add'l PRN ativan r/t long trip to [place]. Pt is agreeable and med given. Report given to EMT. Pt transfers to [facility] independently. Belongings are gathered and sent with pt. Pt is awake, alert, cooperative with mild anxiety. Pt left with ambulance personnel at 0937 in no acute distress. Original Note: Call placed to [facility]. Left voice message at 0830 with Kalyani to return phone call regarding giving report. Await return call.
[2017-10-23 08:32] VITALS: BP 161/87; PULSE 96; RESP 17; TEMP 37.4; O2SAT 100
[2017-10-23] MEDS: LORazepam 1 MG TABLET PO (09:24)
--- NOTE | 2017-10-23 10:07 | PM.DS.1 ---
History of Present Illness Chief complaint: Hypoxic Respirtory Failure, Alcohol Overdose Narrative: The patient was hospitalized at this facility last month, 1 of numerous hospitalizations for recurrent recidivistic severe alcoholism with a lawn line of multiple life-threatening presentations, including several episodes of intubation for airway protection due to profound alcohol intoxication, and most recently discharged to to inpatient alcohol rehabilitation treatment at the [facility] in [place]. He was treated there for 3 days then released. Details regarding this are unclear, and it was the intent to pursue RCW 71.05.020 ([place]ash[place]'s Law) at that time. His reports that for at least the last week he has been drinking 2/5 of liquor daily. There was some question yesterday that he may have taken someone else's Percocet. He was unresponsive, and found down by paramedics, and intubated for airway protection. He is admitted for further management and evaluation. Discharge Providers Date of admission: 10/22/17 00:13 Primary care physician: Luigi Bains MD Consults: 10/22/17 02:12 Consult to Dietitian, Adult Routine Comment: Reason For Exam: Poor PO intake, alcoholic Consult to Explosive Ordnance Disposal Specialist Routine Comment: 10/22/17 11:07 Consult to Respiratory Therapy Evaluate & Treat Comment: extubate ETT and OGT now, titrate O2 to SaO2 >=92? Physician Instructions: Evaluate and treat 10/22/17 11:08 Consult to Dietitian, Adult Routine Comment: Reason For Exam: alcoholism Discharge provider: Dhaval Sagastume MD Summary Discharge Diagnosis: 1. Acute severe alcohol intoxication, intubated temporarily for airway protection. 2. Chronic severe and refractory alcoholism. 3. Depression. 4. Abnormal liver function tests, likely due to alcoholic hepatitis. Hospital Course: The patient remained in the ICU intubated for airway protection. He was felt to be clearly at high risk for given that this was the fourth intubation since June due to severe alcohol intoxication. The patient was extubated without incident and treated with lorazepam for alcohol withdrawal prophylaxis, as well as thiamine and folate during his hospitalization. Mental health services assess the patient and felt that he was appropriate for inpatient alcohol detoxification on an involuntary basis consistent with current law. No other issues arose Status at Discharge Cognitive/behavioral status at discharge: Con, cooperative, expressing ambivalence regarding the seriousness of his alcohol problem. Functional status at discharge: independent ambulation Overall status at discharge: patient is back to baseline Time Spent with Patient Less than 30 minutes Exam Vital Signs (past 8 hours): Vital Signs - 8 hr 10/23/17 06:08 10/23/17 08:32 Temperature 99.4 F Pulse Rate 96 H Respiratory Rate 20 17 Blood Pressure 161/87 H Pulse Oximetry 100 Pulse Oximetry 100 Oxygen Delivery Method Room Air Oxygen Flow Rate 0 Objective Labs Result Diagrams: 10/21/17 22:34 10/21/17 22:34 Discharge Plan Discharge Plan Patient Disposition: [facility] Under care of provider: TBD Discharge Med Rec/Prescriptions Discharge Orders: Discharge (Order); Ordered 10/22/17 Ordered By: Dhaval Sagastume Discharge Health Status Multidrug resistant organism: No MDRO Provider Discharge Instructions Diet: Regular Liquid consistency: Normal/Thin Food texture: Regular Discharge Data Primary Care Provider: Luigi Bains Attending Provider: Dhaval Sagastume V Admit Date/Time: 10/22/17 00:13 Quality VTE Deep Vein Thrombosis/Pulmonary Embolism Present on Admission: No
--- NOTE | 2017-10-23 15:21 | CM.DPNOTE ---
DC Note: DCR evaluated pt yesterday, pt was detained, and a detox bed at [facility] ([facility]) in [place] was secured for pt. This PROCESS CONTROL TECHNICIAN reviewed [facility] notes and physical chart notes this morning. Legal documents related to pt's detainment were in a sealed and signed envelope. Attempted to contact admissions and/or nurse at [facility] to confirm they had what was needed for admission. BLS had already been arranged under NIRANJAN by the DCR. Later heard from Kalyani at [facility] P# [phone] ext [phone]; as long as the legal docs were along w/pt Kalyani had what was needed. MILLA Velasquez gave report to RN at [facility] this morning. KANDI Weaver
== END 2017-10-23 09:37 | disposition other institution (70) | DRG 816 ==
LOC: ED 10-22 00:10 → ICU 10-22 00:14
PROVIDERS: Admitting Provider Internal Medicine; Emergency Provider Emergency Medicine; Family Provider Family Medicine; PCP Family Medicine; Visit Provider Internal Medicine
DX: T51.0X1A Toxic effect of ethanol, accidental (unintentional), initial encounter (principal); R40.2112 Coma scale, eyes open, never, at arrival to emergency department; R40.2212 Coma scale, best verbal response, none, at arrival to emergency department; F10.220 Alcohol dependence with intoxication, uncomplicated; K70.10 Alcoholic hepatitis without ascites; Y90.8 Blood alcohol level of 240 mg/100 ml or more; F32.9 Major depressive disorder, single episode, unspecified; R40.2332 Coma scale, best motor response, abnormal flexion, at arrival to emergency department
CPT/HCPCS: 36415; 36600; 51701; 70450; 71045; 80053; 80076; 80305; 80320; 80329; 82805; 83605; 85025; 87797; 94002; 94003; 94770; 94799; 96360; 99285; 99291; 99292; 99406; G0480; J2250; J2704; J3475

== ENCOUNTER 2017-11-02 13:19 | Emergency (ER) | payer OTHER, MEDICAID, SELFPAY ==
[2017-10-22 01:50] VITALS: BMI 22.8
[2017-10-22 10:55] VITALS: PULSE 76; RESP 14; O2SAT 100
[2017-11-02 13:28] VITALS: BP 146/87; PULSE 113; RESP 15; TEMP 36.4; O2SAT 97
--- NOTE | 2017-11-02 13:34 | ED.PSYCH ---
HPI - Psych General Chief Complaint: Psychiatric Symptoms Stated Complaint: brought in my Law Enforcement Time Seen by Provider: 11/02/17 13:34 Source: patient and police Mode of arrival: other (police) Limitations: no limitations History of Present Illness HPI Narrative: Patient is a 27-year-old male who is brought in by police for suicidal ideations. He is actually 1 was frequently here and intoxicated however he is upright well-dressed and sober. To us he denies any suicidal ideations. He previously has had while fighting with his that he wanted to jump off the bridge. Now without his here on he says he has never been suicidal in his life he does not want to harm himself. We discussed how he does may need a break from each other in if there is any place for him to stay. [facility] [place]. MD complaint: suicidal ideation Related Data Previous Rx's Medication Instructions Recorded ondansetron [Zofran ODT] 4 mg SUBLINGUAL Q6HP PRN #20 odt 06/01/17 chlordiazepoxide HCl 50 mg PO Q8H PRN #14 cap 10/22/17 Allergies Allergy/AdvReac Type Severity Reaction Status Date / Time shrimp [SHRIMP] Allergy Severe THROAT Unverified 08/28/17 12:11 SWELLING/HIVES diazepam [From VALIUM] Allergy Intermediate LEG Unverified 08/28/17 12:11 SWELLING haloperidol [From HALDOL] Allergy Unknown DYSTONIA Unverified 08/28/17 12:11 naproxen [NAPROXEN] AdvReac Mild NAUSEA/GI Unverified 08/28/17 12:11 DISTRESS Review of Systems Review of Systems All systems reviewed & are unremarkable except as noted in HPI and below PFSH Social History household members: spouse Exam Initial Vital Signs Initial Vital Signs: Vital Signs Temperature 97.5 F L 11/02/17 13:28 Pulse Rate 113 H 11/02/17 13:28 Respiratory Rate 15 11/02/17 13:28 Blood Pressure 146/87 H 11/02/17 13:28 Pulse Oximetry 97 11/02/17 13:28 Const General: cooperative Nutritional Appearance: average body habitus HENMT Head: normal to inspection Face and sinus: normal facial exam Eyes Pupils: PERRL EOM: EOM intact bilaterally Resp Effort & Inspection: normal respiratory effort and able to speak in complete sentences Cardio Other: no cynaosis Skin General: no rashes or lesions noted, No jaundice and No petechiae Psych Appearance: grossly normal and well kempt Mental Status: mental status grossly normal Speech and Movement: speech and movement normal Mood: congruent mood Affect: normal affect Attitude: cooperative Thought Content: normal Judgment: judgment good Course Vital Signs - 8 hr 11/02/17 13:28 Temperature 97.5 F L Pulse Rate 113 H Respiratory Rate 15 Blood Pressure 146/87 H Pulse Oximetry 97 MDM - Psych MDM Narrative Medical decision making narrative: The patient is well known to us here in this ED deep and this hospital. This is also the 1st time I have seen him sober. He adamantly denies being suicidal or having any kind of plan. It sounds like it was had said that he did the moment. Patient no longer wants to be here. The patient is clinically sober, free from distracting injury, appears to have intact insight, judgment and reason. Does not meet criteria for involuntary hospitalization. Patient has the capacity to make decisions. Discharge Plan Departure Patient Disposition: Home, Self-Care Clinical Impression: Feared complaint without diagnosis Discharge Date/Time: 11/02/17 13:48 Interventions: ED Discharge Assessment Last Done: 11/02/17 13:47 Instructions: DI for Suicidal Ideation-Adult Activity Restrictions/Additional Instructions: If you are feeling suicidal or having suicidal thoughts: Call: Suicide Hotline: Visit: [employer] Text: 848479 Follow up with your primary doctor Prescriptions: No Action ondansetron [Zofran ODT] 4 MG tablet,disintegrating 4 mg Sublingual Q6HP PRNQty: 20 RF: 0 chlordiazepoxide HCl 25 mg capsule 50 mg PO Q8H PRN (Reason: alcohol withdrawal) Qty: 14 RF: 0 Referrals: Luigi Bains MD [Primary Care Provider] -
== END 2017-11-02 13:48 | disposition home or self-care (01) ==
PROVIDERS: Emergency Provider Emergency Medicine; Family Provider Family Medicine; PCP Family Medicine
DX: Z71.1 Person with feared health complaint in whom no diagnosis is made (principal)
CPT/HCPCS: 99282

== ENCOUNTER 2017-11-10 13:11 | Emergency (ER) | payer OTHER, MEDICAID, SELFPAY ==
[2017-10-22 01:50] VITALS: BMI 22.8
[2017-10-22 10:55] VITALS: PULSE 76; RESP 14; O2SAT 100
[2017-11-10 13:29] VITALS: BP 157/102; PULSE 104; RESP 20; TEMP 36.4; O2SAT 98; BMI 25.0
[2017-11-10 14:53] VITALS: BP 149/96; PULSE 93; RESP 20; O2SAT 97
--- NOTE | 2017-11-10 15:12 | PC.NURSE ---
Has chosen to seek care later as is anxious and dosent want to wait
== END 2017-11-10 15:11 | disposition left against medical advice (07) ==
PROVIDERS: Emergency Provider Internal Medicine; Family Provider Family Medicine; PCP Family Medicine
DX: F10.239 Alcohol dependence with withdrawal, unspecified (principal)
CPT/HCPCS: 82075; 99281

== ENCOUNTER 2018-01-02 13:19 | Inpatient (IN) | payer OTHER, MEDICAID, SELFPAY ==
[2017-10-22 01:50] VITALS: BMI 22.8
[2017-10-22 10:55] VITALS: PULSE 76; RESP 14; O2SAT 100
[2018-01-02] VITALS (20 sets, daily range): BP systolic 93–126; BP diastolic 56–82; PULSE 81–91; RESP 7–18; TEMP 36.5; O2SAT 100; BMI 21.3
--- NOTE | 2018-01-02 13:34 | ED_ITS ---
HPI - Overdose General Chief Complaint: Toxicology Problem Stated Complaint: Unresponsive Time Seen by Provider: 01/02/18 13:22 Source: EMS Mode of arrival: EMS Limitations: altered mental status History of Present Illness HPI Narrative: Patient presents by EMS as apparent overdose. Patient was found down by EMS, hypoxic, and was immediately intubated. He was found down by his girlfriend and has a known history of overdose to multiple substances including prescription medications and alcohol. It is unknown if this is intentional. He has long history of the same and has recently been in alcohol rehab and was discharged after 45 of a planned 60 days. He has a strong history of significant alcohol and had approximately 4-13 tablets of trazodone 50mg Onset (ago): minute(s) Timing confirmed by: spouse and family member Intent: unknown How Overdose Was Discovered: family/friend present at time Context: Intentional Overdose: drug/ETOH problems Treatments Prior to Arrival: oxygen, narcan and IV fluids Related Data Home Medications Medication Instructions Recorded Confirmed Unobtainable 01/02/18 01/02/18 Allergies Allergy/AdvReac Type Severity Reaction Status Date / Time shrimp [SHRIMP] Allergy Severe THROAT Verified 11/10/17 13:32 SWELLING/HIVES diazepam [From VALIUM] Allergy Intermediate LEG Verified 11/10/17 13:32 SWELLING haloperidol [From HALDOL] Allergy Unknown DYSTONIA Verified 11/10/17 13:32 naproxen [NAPROXEN] AdvReac Mild NAUSEA/GI Verified 11/10/17 13:32 DISTRESS Review of Systems Review of Systems due to endotracheal tube and unobtainable due to mental status [facility] Social History household members: spouse Smoking Status: Current every day smoker Exam Narrative Exam Narrative: Critically ill patient, sedated on vent Initial Vital Signs Initial Vital Signs: Vital Signs Pulse Rate 84 01/02/18 13:41 Respiratory Rate 7 L 01/02/18 13:41 Blood Pressure 122/82 H 01/02/18 13:41 Pulse Oximetry 100 01/02/18 13:41 Const General: patient mechanically ventilated Nutritional Appearance: thin HENMT Head: normal to inspection Ears: hearing grossly normal bilaterally Nose: external nose normal Face and sinus: normal facial exam Mouth: oral mucosae normal Teeth and gingiva: dentition normal Eyes General: appearance normal, both eyes and all related structures Periorbital: periorbital findings normal Eyelids: eyelids normal Conjunctivae: conjunctivae normal Neck Neck: normal visual inspection, trachea midline, No lymphadenopathy, No midline deformity and No JVD Lymphatic: No lymphedema Chest Chest: normal inspection of the chest Cardio Rate: regular rate Rhythm: regular rhythm Heart Sounds: no click, no gallops, no murmurs and no rubs Pulses: normal peripheral pulses GI Inspection: non-distended Palpation: soft, no hepatosplenomegaly, No guarding, No pulsatile mass and No tender Auscultation: normal bowel sounds Back/Spine/Pelvis Back: No CVA tenderness Cervical Spine: cervical ROM normal and No pain with cervical ROM Thoracic/Lumbar Spine: thoracic and lumbar spine normal to inspection Neuro Other: Patient is sedated on vent Course Orders Ordered: ED Orders 01/02/18 13:25 Acetaminophen Stat Complete Blood Count AUTO DIFF Stat Comprehensive Metabolic Panel Stat Ethanol (ETOH) Stat Hepatic (Liver) Panel Stat Salicylate Stat Urine Drug Screen, Rapid Stat 01/02/18 13:38 XR chest 1V Stat 01/02/18 14:03 Arterial Blood Gas Stat 01/02/18 14:05 Lactate (Lactic Acid) Stat 01/02/18 14:14 EKG-12 Lead Stat Sodium Chloride (Normal Saline 0.9%) 1,000 mls @ 150 mls/hr IV CONT HOLGER Last Admin: 01/02/18 13:40 Dose: 150 mls/hr Propofol (Propofol) 1,000 mg in 100 mls @ 2.142 mls/hr IV TITRATE HOLGER; Protocol Last Admin: 01/02/18 14:23 Dose: 5 mcg/kg/min, 2.142 mls/hr Discontinued Medications Fentanyl (Sublimaze) 100 mcg IV NOW ONE Stop: 01/02/18 13:53 Last Admin: 01/02/18 13:55 Dose: 100 mcg Consultations Consultation #1: Poison Control makes no specific recommendations other than symptomatic treatment given his normal EKG and already intubated. Consultation #2: Dr. De Santiago happy to accept this patient into the ICU Time: 14:35 Vital Signs - 8 hr 01/02/18 13:41 Pulse Rate 84 Respiratory Rate 7 L Blood Pressure 122/82 H Pulse Oximetry 100 MDM - Overdose Lab Data Result diagrams: 01/02/18 13:25 01/02/18 13:25 Lab Results 08/16/18 08/16/18 08/16/18 Range/Units 13:25 13:25 13:25 WBC 10.4 (4.5-11.0) X10^3/uL RBC 5.09 (4.5-5.9) X10^6/uL Hgb 16.1 (13.5-17.5) g/dL Hct 46.0 (41-53) % MCV 90.4 (80-100) fL MCH 31.6 (26-34) PG MCHC 34.9 (30-36) % RDW 13.0 (11.6-14.8) % Plt Count 168 (150-400) X10^3/uL Neut % (Auto) 75.1 H (50-75) % Lymph % (Auto) 23.8 L (25-40) % [place] % (Auto) 1.0 L (3-14) % Eos % (Auto) 0.0 L (2-4) % Baso % (Auto) 0.1 (0-2) % Neut # (Auto) 7800 H (2334-6080) /uL ABG pH (7.35-7.45) ABG pCO2 (35-45) mmHg ABG pO2 (80-105) mmHg ABG HCO3 (23-27) mmol/L ABG Total CO2 (23-27) mmol/L ABG O2 Saturation (95-100) % ABG Base Excess (-2-3) mmol/L FiO2 Sodium 153 H (137-145) mmol/L Potassium 4.4 (3.4-5.1) mmol/L Chloride 112 H (98-107) mmol/L Carbon Dioxide 23 (22-32) mmol/L BUN 13 (9-20) mg/dL Creatinine 0.70 (0.66-1.25) mg/dL Estimated GFR > 60.0 (>60) mL/min BUN/Creatinine Ratio 18.6 (6-22) Glucose 88 (70-100) mg/dL Lactate (0.7-2.1) mmol/L Calcium 7.9 L (8.4-10.2) mg/dL Total Bilirubin 0.4 (0.2-1.3) mg/dL Conjugated Bilirubin 0.0 (0.0-0.3) md/dL Unconjugated Bilirubin 0.1 (0.0-1.1) mg/dL AST 27 (17-59) IU/L ALT 31 (21-72) IU/L Alkaline Phosphatase 55 (38-126) U/L Total Protein 7.1 (6.3-8.2) g/dL Albumin 4.4 (3.5-5.0) g/dL Globulin 2.7 (1.7-4.1) g/dL Albumin/Globulin Ratio 1.6 (1.0-2.8) Salicylates < 1.0 (<20) mg/dL Urine Opiates Screen Negative (Negative) Ur Oxycodone Screen Negative (Negative) Urine Methadone Screen Negative (Negative) Acetaminophen < 10 L (10-30) ug/mL Ur Barbiturates Screen Negative (Negative) U Tricyclic Antidepress Negative (Negative) Ur Phencyclidine Scrn Negative (Negative) Ur Amphetamines Screen Negative (Negative) U Methamphetamines Scrn Negative (Negative) Ur MDMA Scrn (Ecstasy) Negative (Negative) U Benzodiazepines Scrn Negative (Negative) Urine Cocaine Screen Negative (Negative) U Marijuana (THC) Screen Negative (Negative) Ethyl Alcohol 525 H* mg/dL 01/02/18 01/02/18 Range/Units 14:03 14:05 WBC (4.5-11.0) X10^3/uL RBC (4.5-5.9) X10^6/uL Hgb (13.5-17.5) g/dL Hct (41-53) % MCV (80-100) fL MCH (26-34) PG MCHC (30-36) % RDW (11.6-14.8) % Plt Count (150-400) X10^3/uL Neut % (Auto) (50-75) % Lymph % (Auto) (25-40) % [place] % (Auto) (3-14) % Eos % (Auto) (2-4) % Baso % (Auto) (0-2) % Neut # (Auto) (9194-6570) /uL ABG pH 7.21 L* (7.35-7.45) ABG pCO2 34.5 L (35-45) mmHg ABG pO2 63 L (80-105) mmHg ABG HCO3 14 L (23-27) mmol/L ABG Total CO2 15 L (23-27) mmol/L ABG O2 Saturation 87 L (95-100) % ABG Base Excess -14.0 L (-2-3) mmol/L FiO2 0.75 Sodium (137-145) mmol/L Potassium (3.4-5.1) mmol/L Chloride (98-107) mmol/L Carbon Dioxide (22-32) mmol/L BUN (9-20) mg/dL Creatinine (0.66-1.25) mg/dL Estimated GFR (>60) mL/min BUN/Creatinine Ratio (6-22) Glucose (70-100) mg/dL Lactate 3.8 H (0.7-2.1) mmol/L Calcium (8.4-10.2) mg/dL Total Bilirubin (0.2-1.3) mg/dL Conjugated Bilirubin (0.0-0.3) md/dL Unconjugated Bilirubin (0.0-1.1) mg/dL AST (17-59) IU/L ALT (21-72) IU/L Alkaline Phosphatase (38-126) U/L Total Protein (6.3-8.2) g/dL Albumin (3.5-5.0) g/dL Globulin (1.7-4.1) g/dL Albumin/Globulin Ratio (1.0-2.8) Salicylates (<20) mg/dL Urine Opiates Screen (Negative) Ur Oxycodone Screen (Negative) Urine Methadone Screen (Negative) Acetaminophen (10-30) ug/mL Ur Barbiturates Screen (Negative) U Tricyclic Antidepress (Negative) Ur Phencyclidine Scrn (Negative) Ur Amphetamines Screen (Negative) U Methamphetamines Scrn (Negative) Ur MDMA Scrn (Ecstasy) (Negative) U Benzodiazepines Scrn (Negative) Urine Cocaine Screen (Negative) U Marijuana (THC) Screen (Negative) Ethyl Alcohol mg/dL Discharge Plan Departure Patient Disposition: Admitted As Inpatient Clinical Impression: Polysubstance overdose, Alcohol abuse
--- NOTE | 2018-01-02 13:38 | DI.RAD.S_ITS ---
PROCEDURE: XR CHEST 1V INDICATIONS: check et tube placement TECHNIQUE: One view of the chest was acquired. COMPARISON: [facility], CR, XR CHEST 1V, 10/21/2017, 22:13. FINDINGS: Surgical changes and devices: There is an endotracheal tube with the tip approximately 11 cm from the matthew. Recommend advancement by approximately 6-7 cm. Lungs and pleura: No pleural effusions or pneumothorax. Lungs are clear. Mediastinum: Mediastinal contours appear normal. Heart size is normal. Bones and chest wall: No suspicious bony lesions. Overlying soft tissues appear unremarkable. IMPRESSION: 1. Endotracheal tube tip approximately 11 cm from the matthew. Recommend advancement by approximately 6-7 cm. Dictated by: Silvio Jones M.D. on 01/02/2018 at 14:50 Approved by: Silvio Jones M.D. on 01/02/2018 at 14:53
[2018-01-02] MEDS: SODIUM CHLORIDE 0.9% 1,000 ML 1000 ML IV (13:40)
[2018-01-02 13:46] LABS: Add Manual Diff / Slide Review NO; Basophils Percent Auto 0.1 % (0-2); Hemoglobin 16.1 g/dL (13.5-17.5); Lymphocytes Percent Auto 23.8 % (25-40); Mean Corpuscular HGB Conc 34.9 % (30-36); Mean Corpuscular Hemoglobin 31.6 PG (26-34); Mean Corpuscular Volume 90.4 fL (80-100); Neutrophils Absolute Auto 7800 /uL (3000-5900); Neutrophils Percent Auto 75.1 % (50-75); Platelet Count 168 X10^3/uL (150-400); Red Blood Cell Count 5.09 X10^6/uL (4.5-5.9); White Blood Cell Count 10.4 X10^3/uL (4.5-11.0)
[2018-01-02] MEDS: PROPOFOL 200 MG/20 ML VIAL 20 MG IV (13:50)
[2018-01-02] MEDS: fentaNYL 100 MCG/2 ML INJ IV (13:55)
[2018-01-02 13:57] LABS: Acetaminophen < 10 ug/mL (10-30); Alanine Aminotransferase 31 IU/L (21-72); Albumin 4.4 g/dL (3.5-5.0); Albumin Globulin Ratio 1.6 (1.0-2.8); Alkaline Phosphatase 55 U/L (38-126); Aspartate Aminotransferase 27 IU/L (17-59); BUN Creatinine Ratio 18.6 (6-22); Bilirubin Total 0.4 mg/dL (0.2-1.3); Bilirubin Unconjugated 0.1 mg/dL (0.0-1.1); Blood Urea Nitrogen 13 mg/dL (9-20); Calcium 7.9 mg/dL (8.4-10.2); Carbon Dioxide 23 mmol/L (22-32); Chloride 112 mmol/L (98-107); Estimated Glomerular Filt Rate > 60.0 mL/min (>60); Globulin 2.7 g/dL (1.7-4.1); Glucose 88 mg/dL (70-100); Potassium 4.4 mmol/L (3.4-5.1); Sodium 153 mmol/L (137-145); Total Protein 7.1 g/dL (6.3-8.2)
[2018-01-02 14:00] LABS: Salicylate < 1.0 mg/dL (<20)
[2018-01-02 14:04] LABS: HEMOLYSIS < 15 (0-50)
[2018-01-02 14:15] LABS: Fractionated Inspired Oxygen 0.75; HCO3 ABG 14 mmol/L (23-27); Oxygen Saturation ABG 87 % (95-100); PCO2 ABG 34.5 mmHg (35-45); PO2 ABG 63 mmHg (80-105); TCO2 ABG 15 mmol/L (23-27); pH ABG 7.21 (7.35-7.45)
[2018-01-02 14:19] LABS: Lactate (Lactic Acid) 3.8 mmol/L (0.7-2.1)
[2018-01-02 14:20] LABS: Ethanol (ETOH) 525 mg/dL
[2018-01-02] MEDS: PROPOFOL 1,000 MG/100 ML VIAL 2.142 MG IV (14:23)
[2018-01-02 14:30] LABS: Urine Amphetamines Negative (Negative); Urine Barbiturates Negative (Negative); Urine Benzodiazepines Negative (Negative); Urine Cocaine Negative (Negative); Urine MDMA Negative (Negative); Urine Methadone Negative (Negative); Urine Methamphetamines Negative (Negative); Urine Morphine/Opi cutoff 2000 Negative (Negative); Urine Oxycodone Negative (Negative); Urine Phencyclidine Negative (Negative); Urine Tetrahydrocannabinol Negative (Negative); Urine Tricyclic Antidepressant Negative (Negative)
[2018-01-02] MEDS: SODIUM CHLORIDE 0.9% 1,000 ML 150 ML IV (15:49)
[2018-01-02 17:26] LABS: HCO3 ABG 21 mmol/L (23-27); PCO2 ABG 40.1 mmHg (35-45); PO2 ABG 321 mmHg (80-105); TCO2 ABG 23 mmol/L (23-27); pH ABG 7.33 (7.35-7.45)
[2018-01-02 17:27] LABS: Fractionated Inspired Oxygen 0.75; Oxygen Saturation ABG 100 % (95-100)
--- NOTE | 2018-01-02 17:36 | P.HP_ITS ---
History of Present Illness Date Patient Seen: 01/02/18 Time Patient Seen: 17:29 Chief complaint: Unresponsive Narrative: Admitted from home found him down and purple Apparently came out of the detox rehab last night and started drinking today is his birthday then go back to see him last night in the morning when she went to see him he was down and was purple she called EMS who had to intubate him of the site He is currently on mechanical ventilatory support and propofol infusion Apparently took an some of his trazodone and alcohol Currently spontaneously moving his lower extremities otherwise no response Patient History Medical History Alcoholism (Acute) Depression (Acute) Eating disorder (Acute) Epilepsy (Acute) Low back pain (Acute) Family & Social History Family History: Reviewed 01/02/18 by Allen Daniel MD Social History: household members spouse Prior Living Arrangements House Safety & Behavioral: Feels Safe in Current No Environment Been Physically Hurt or No Threatened By a Person Suicidal Ideation Description Constant Suicide Plan Description High Lethality Tobacco & Substance use: Smoking Status Current every day smoker alcohol intake frequency 3 or more drinks per day Substance Use Type marijuana,other Meds Home Medications Medication Instructions Recorded Confirmed Type nicotine (polacrilex) 1 ea PO DIRECTED 01/02/18 01/02/18 History trazodone 50 mg PO BEDTIME 01/02/18 01/02/18 History Allergies Allergy/AdvReac Type Severity Reaction Status Date / Time shrimp [SHRIMP] Allergy Severe THROAT Verified 11/10/17 13:32 SWELLING/HIVES diazepam [From VALIUM] Allergy Intermediate LEG Verified 11/10/17 13:32 SWELLING haloperidol [From HALDOL] Allergy Unknown DYSTONIA Verified 11/10/17 13:32 naproxen [NAPROXEN] AdvReac Mild NAUSEA/GI Verified 11/10/17 13:32 DISTRESS Review of Systems Review of Systems due to endotracheal tube and unobtainable due to mental condition Exam Vital Signs (past 8 hours): - 01/02/18 13:41 01/02/18 13:50 01/02/18 14:00 Temperature Pulse Rate 84 87 81 Respiratory Rate 7 L 17 17 Blood Pressure 122/82 H Blood Pressure [Left Arm] 126/78 H 126/78 H Pulse Oximetry 100 100 100 01/02/18 14:10 01/02/18 14:15 01/02/18 14:30 Temperature Pulse Rate 89 86 86 Respiratory Rate 17 16 14 Blood Pressure Blood Pressure [Left Arm] 126/72 H 123/72 H 116/71 Pulse Oximetry 100 100 100 01/02/18 14:45 01/02/18 15:50 Temperature 97.7 F Pulse Rate 85 82 Respiratory Rate 14 12 Blood Pressure 113/69 Blood Pressure [Left Arm] 117/69 Pulse Oximetry 100 100 Fraction of Inspired Oxygen 75 Oxygen Delivery Method Ambu Bag Const General: patient mechanically ventilated [facility] Head: normal to inspection, normocephalic and atraumatic Eyes Pupils: PERRL Neck Neck: normal visual inspection Resp Effort & Inspection: symmetric chest movement Auscultation: clear to auscultation bilaterally Cardio Rate: regular rate Rhythm: regular rhythm Heart Sounds: S1 normal and S2 normal GI Inspection: normal to inspection Palpation: soft Skin General: no rashes or lesions noted Neuro General: obtunded Extrem General: other (rt LE INTRAOSSEOUS INFUSION BYEMS IN THE FIELD) Objective Labs Result Diagrams: 01/02/18 13:25 01/02/18 13:25 Labs: Laboratory Results - last 24 hr 01/02/18 01/02/18 01/02/18 13:25 13:25 13:25 WBC 10.4 RBC 5.09 Hgb 16.1 Hct 46.0 MCV 90.4 MCH 31.6 MCHC 34.9 RDW 13.0 Plt Count 168 Neut % (Auto) 75.1 H Lymph % (Auto) 23.8 L [place] % (Auto) 1.0 L Eos % (Auto) 0.0 L Baso % (Auto) 0.1 Neut # (Auto) 7800 H ABG pH ABG pCO2 ABG pO2 ABG HCO3 ABG Total CO2 ABG O2 Saturation ABG Base Excess FiO2 Sodium 153 H Potassium 4.4 Chloride 112 H Carbon Dioxide 23 BUN 13 Creatinine 0.70 Estimated GFR > 60.0 BUN/Creatinine Ratio 18.6 Glucose 88 Lactate Calcium 7.9 L Total Bilirubin 0.4 Conjugated Bilirubin 0.0 Unconjugated Bilirubin 0.1 AST 27 ALT 31 Alkaline Phosphatase 55 Total Protein 7.1 Albumin 4.4 Globulin 2.7 Albumin/Globulin Ratio 1.6 Salicylates < 1.0 Urine Opiates Screen Negative Ur Oxycodone Screen Negative Urine Methadone Screen Negative Acetaminophen < 10 L Ur Barbiturates Screen Negative U Tricyclic Antidepress Negative Ur Phencyclidine Scrn Negative Ur Amphetamines Screen Negative U Methamphetamines Scrn Negative Ur MDMA Scrn (Ecstasy) Negative U Benzodiazepines Scrn Negative Urine Cocaine Screen Negative U Marijuana (THC) Screen Negative Ethyl Alcohol 525 H* 01/02/18 01/02/18 01/02/18 14:03 14:05 17:08 WBC RBC Hgb Hct MCV MCH MCHC RDW Plt Count Neut % (Auto) Lymph % (Auto) [place] % (Auto) Eos % (Auto) Baso % (Auto) Neut # (Auto) ABG pH 7.21 L* 7.33 L ABG pCO2 34.5 L 40.1 ABG pO2 63 L 321 H* ABG HCO3 14 L 21 L ABG Total CO2 15 L 23 ABG O2 Saturation 87 L 100 ABG Base Excess -14.0 L -5.0 L FiO2 0.75 0.75 Sodium Potassium Chloride Carbon Dioxide BUN Creatinine Estimated GFR BUN/Creatinine Ratio Glucose Lactate 3.8 H Calcium Total Bilirubin Conjugated Bilirubin Unconjugated Bilirubin AST ALT Alkaline Phosphatase Total Protein Albumin Globulin Albumin/Globulin Ratio Salicylates Urine Opiates Screen Ur Oxycodone Screen Urine Methadone Screen Acetaminophen Ur Barbiturates Screen U Tricyclic Antidepress Ur Phencyclidine Scrn Ur Amphetamines Screen U Methamphetamines Scrn Ur MDMA Scrn (Ecstasy) U Benzodiazepines Scrn Urine Cocaine Screen U Marijuana (THC) Screen Ethyl Alcohol Assessment & Plan Plan: Assessment/Plan Narrative: OVERDOSE ETOH and TRAZADONE EKG narrow QRS and QTc Normal will monitor if need be will use BiCarb and alkalanise the system Continue Mechanical vent support IV D5 NS K WILL monitor and correct metabolic abnormalities as needed 2.Aspiration PNA ? Start Zosyn Protonix and DVT prophylaxis Time Spent With Patient Time with patient: Greater than 35 minutes Quality VTE Deep Vein Thrombosis/Pulmonary Embolism Present on Admission: No
[2018-01-02] MEDS: DEXTROSE 5%-0.9% NS 1,000 ML 100 ML IV (17:42)
[2018-01-02] MEDS: LORazepam 2 MG/ML SYRINGE 1 MG IV ×2 (17:43→22:50)
[2018-01-02 18:07] LABS: Reflexed Lactate in 2 Hours Y
--- NOTE | 2018-01-02 18:25 | PC.NURSE ---
Addendum entered by Mara Nina R.N. 01/02/18 23:01: 2245- Patient sitting up and leaning forward to try and remove ETT. Patient nodding appropriately denies pain, and acknowledged he was in the hospital. Patient sedated per order, soft wrist restraints in place per order. Original Note: Addendum entered by Mara Nina R.N. 01/02/18 21:17: 2100- Patient noted to have dark burgundy secretions from the OG. The volume has decreased but remains dark. Original Note: 1500- Patient admitted to room 105 from Emergency vented and sedated. Isabel catheter draining karsten urine. IV fluids infusing per MD order Propofol for sedation. Patient is a poly substance overdose. Family at bedside.
[2018-01-02] MEDS: PIPERACILLIN-TAZO 3.375 GM/50 ML FROZ.PIGGY IV (18:31)
[2018-01-02 18:53] LABS: Lactate 2HR (Lactic Acid Rflx) 3.1 mmol/L (0.7-2.1)
[2018-01-02] MEDS: MORPHINE 2 MG/ML INJ IV (20:47)
[2018-01-02] MEDS: PANTOPRAZOLE 40 MG VIAL IV (20:49)
[2018-01-03] VITALS (37 sets, daily range): BP systolic 95–126; BP diastolic 49–106; PULSE 88–117; RESP 12–27; TEMP 37.6–39.8; O2SAT 86–100
[2018-01-03] MEDS: PIPERACILLIN-TAZO 3.375 GM/50 ML FROZ.PIGGY IV ×3 (01:23→17:14)
[2018-01-03] MEDS: LORazepam 2 MG/ML SYRINGE 1 MG IV (03:06)
[2018-01-03] MEDS: PROPOFOL 1,000 MG/100 ML VIAL 21.42 MG IV ×2 (03:11→11:56)
--- NOTE | 2018-01-03 03:36 | DI.RAD.S_ITS ---
PROCEDURE: XR CHEST 1V INDICATIONS: decresed o2 while on vent, tube placement check TECHNIQUE: One view of the chest was acquired. COMPARISON: [facility], CR, XR CHEST 1V, 01/02/2018, 13:43. [facility], CR, XR CHEST 1V, 10/21/2017, 22:13. [facility], CR, CHEST 1 VIEW, 09/11/2017, 13:36. FINDINGS: Surgical changes and devices: Endotracheal tube positioning is high, approximately 4.6 cm above the upper margin of the medial clavicular heads. Esophagogastric tube side port is above the EG junction. A central line is not seen.. Lungs and pleura: No pleural effusions or pneumothorax. Lungs are clear except for slight retrocardiac left lower lobe alveolar infiltration. Mediastinum: Mediastinal contours appear normal. Heart size is normal. Bones and chest wall: No suspicious bony lesions. Overlying soft tissues appear unremarkable. IMPRESSION: The endotracheal tube positioning is relatively high, as discussed above. Side-port of the esophagogastric tube is above the EG junction but bilaterally approximately 2 cm. Dictated by: Josse Grubbs M.D. on 01/03/2018 at 8:44 Approved by: Josse Grubbs M.D. on 01/03/2018 at 9:01
[2018-01-03] MEDS: LORazepam 2 MG/ML SYRINGE IV ×12 (04:05→21:06)
[2018-01-03] MEDS: DEXTROSE 5%-0.9% NS 1,000 ML 100 ML IV (04:30)
--- NOTE | 2018-01-03 04:39 | DI.RAD.S_ITS ---
PROCEDURE: XR CHEST 1V INDICATIONS: Endotracheal tube placement TECHNIQUE: One view of the chest was acquired. COMPARISON: [facility], CR, XR CHEST 1V, 01/03/2018, 3:42. [facility], CR, XR CHEST 1V, 01/02/2018, 13:43. [facility], CR, XR CHEST 1V, 10/21/2017, 22:13. FINDINGS: Surgical changes and devices: Endotracheal tube positioning normal as is the esophagogastric tube. Lungs and pleura: No pleural effusions or pneumothorax. Lungs are abnormal with dense opacification of the medial retrocardiac left lung base, with volume loss on the left. Mediastinum: Mediastinal contours appear normal. Heart size is normal. Bones and chest wall: No suspicious bony lesions. Overlying soft tissues appear unremarkable. IMPRESSION: Dense opacification of the medial left lung base associated with volume loss, atelectasis of the left lower lobe may be present versus pneumonia with atelectasis. Endotracheal tube position normal, nasogastric tube position also normal. No central line seen. Dictated by: Josse Grubbs M.D. on 01/03/2018 at 9:02 Approved by: Josse Grubbs M.D. on 01/03/2018 at 9:03
[2018-01-03] MEDS: MORPHINE 4 MG/ML INJ IV (04:41)
[2018-01-03 05:08] LABS: Add Manual Diff / Slide Review NO; Alanine Aminotransferase 28 IU/L (21-72); Albumin 4.2 g/dL (3.5-5.0); Albumin Globulin Ratio 1.6 (1.0-2.8); Alkaline Phosphatase 43 U/L (38-126); Aspartate Aminotransferase 32 IU/L (17-59); BUN Creatinine Ratio 16.3 (6-22); Basophils Percent Auto 0.2 % (0-2); Bilirubin Total 0.3 mg/dL (0.2-1.3); Blood Urea Nitrogen 13 mg/dL (9-20); Calcium 8.5 mg/dL (8.4-10.2); Carbon Dioxide 26 mmol/L (22-32); Chloride 113 mmol/L (98-107); Eosinophils Percent Auto 0.1 % (2-4); Estimated Glomerular Filt Rate > 60.0 mL/min (>60); Globulin 2.6 g/dL (1.7-4.1); Glucose 96 mg/dL (70-100); HEMOLYSIS < 15 (0-50); Hematocrit 44.4 % (41-53); Hemoglobin 15.3 g/dL (13.5-17.5); Mean Corpuscular HGB Conc 34.5 % (30-36); Mean Corpuscular Hemoglobin 31.5 PG (26-34); Mean Corpuscular Volume 91.1 fL (80-100); Monocytes Percent Auto 9.2 % (3-14); Neutrophils Absolute Auto 6900 /uL (3000-5900); Neutrophils Percent Auto 68.5 % (50-75); Platelet Count 144 X10^3/uL (150-400); Potassium 4.1 mmol/L (3.4-5.1); Red Blood Cell Count 4.87 X10^6/uL (4.5-5.9); Red Cell Distribution Width 12.9 % (11.6-14.8); Sodium 154 mmol/L (137-145); Total Protein 6.8 g/dL (6.3-8.2); White Blood Cell Count 10.1 X10^3/uL (4.5-11.0)
--- NOTE | 2018-01-03 05:09 | PM.PN.1 ---
Subjective Date Patient Seen: 01/03/18 Time Patient Seen: 04:03 Interval history: Critical care note. I was called early childhood education worker hours for decreased oxygen saturations on this patient patient. Nurses were concerned that he was having desaturations continuously was more combative. They increased him to 100% FiO2 and still had sats in the 80% range. And I came in to evaluate the patient in the ICU. The patient had been intubated yesterday afternoon had been doing fairly well on the ventilator up until the early childhood education worker hours. He also had been hard to sedate he had been on propofol and Ativan and still was at times thrashing about according to the nursing. Exam Vital Signs (past 8 hours): - 01/02/18 22:32 01/02/18 23:00 01/03/18 00:14 Temperature Pulse Rate 89 91 H 94 H Respiratory Rate 14 12 Blood Pressure 104/56 L 100/60 95/59 L Pulse Oximetry 100 100 01/03/18 01:00 01/03/18 02:00 01/03/18 03:00 Temperature 100.2 F H Pulse Rate 96 H 97 H 99 H Respiratory Rate 12 12 19 Blood Pressure 97/58 L 110/55 L 126/64 H Pulse Oximetry 99 99 88 L 01/03/18 04:00 01/03/18 04:24 Temperature 100.1 F H Pulse Rate 117 H 101 H Respiratory Rate 24 17 Blood Pressure 120/70 120/70 Pulse Oximetry 86 L 100 Fraction of Inspired Oxygen 100 Oxygen Delivery Method Mechanical Ventilation Narrative Exam Narrative: Endotracheal tube in place patient was moving all 4 extremities and somewhat anxious on exam the lungs he had a cuff leak that was evident on exam he also seemed to have decreased breath sounds throughout by despite being intubated. Heart tachycardic Abdomen was soft bowel sounds present Lower extremities no edema Neuro exam patient heavily sedated on the ventilator but moving all 4 extremities spontaneously. Skin moist and warm Objective Imaging Chest x-ray: My impression: Chest x-ray done early this morning showing the ET tube about 10 or 11 cm above the matthew lung sheikh appear clear Labs Result Diagrams: 01/03/18 04:43 01/02/18 13:25 Labs: Laboratory Results - last 24 hr 01/02/18 01/02/18 01/02/18 13:25 13:25 13:25 WBC 10.4 RBC 5.09 Hgb 16.1 Hct 46.0 MCV 90.4 MCH 31.6 MCHC 34.9 RDW 13.0 Plt Count 168 Neut % (Auto) 75.1 H Lymph % (Auto) 23.8 L Whitman % (Auto) 1.0 L Eos % (Auto) 0.0 L Baso % (Auto) 0.1 Neut # (Auto) 7800 H ABG pH ABG pCO2 ABG pO2 ABG HCO3 ABG Total CO2 ABG O2 Saturation ABG Base Excess FiO2 Sodium 153 H Potassium 4.4 Chloride 112 H Carbon Dioxide 23 BUN 13 Creatinine 0.70 Estimated GFR > 60.0 BUN/Creatinine Ratio 18.6 Glucose 88 Lactate Calcium 7.9 L Total Bilirubin 0.4 Conjugated Bilirubin 0.0 Unconjugated Bilirubin 0.1 AST 27 ALT 31 Alkaline Phosphatase 55 Total Protein 7.1 Albumin 4.4 Globulin 2.7 Albumin/Globulin Ratio 1.6 Nasal Screen MRSA (PCR) Salicylates < 1.0 Urine Opiates Screen Negative Ur Oxycodone Screen Negative Urine Methadone Screen Negative Acetaminophen < 10 L Ur Barbiturates Screen Negative U Tricyclic Antidepress Negative Ur Phencyclidine Scrn Negative Ur Amphetamines Screen Negative U Methamphetamines Scrn Negative Ur MDMA Scrn (Ecstasy) Negative U Benzodiazepines Scrn Negative Urine Cocaine Screen Negative U Marijuana (THC) Screen Negative Ethyl Alcohol 525 H* 01/02/18 01/02/18 01/02/18 14:03 14:05 15:00 WBC RBC Hgb Hct MCV MCH MCHC RDW Plt Count Neut % (Auto) Lymph % (Auto) Whitman % (Auto) Eos % (Auto) Baso % (Auto) Neut # (Auto) ABG pH 7.21 L* ABG pCO2 34.5 L ABG pO2 63 L ABG HCO3 14 L ABG Total CO2 15 L ABG O2 Saturation 87 L ABG Base Excess -14.0 L FiO2 0.75 Sodium Potassium Chloride Carbon Dioxide BUN Creatinine Estimated GFR BUN/Creatinine Ratio Glucose Lactate 3.8 H Calcium Total Bilirubin Conjugated Bilirubin Unconjugated Bilirubin AST ALT Alkaline Phosphatase Total Protein Albumin Globulin Albumin/Globulin Ratio Nasal Screen MRSA (PCR) Negative for mrsa Salicylates Urine Opiates Screen Ur Oxycodone Screen Urine Methadone Screen Acetaminophen Ur Barbiturates Screen U Tricyclic Antidepress Ur Phencyclidine Scrn Ur Amphetamines Screen U Methamphetamines Scrn Ur MDMA Scrn (Ecstasy) U Benzodiazepines Scrn Urine Cocaine Screen U Marijuana (THC) Screen Ethyl Alcohol 01/02/18 01/02/18 01/03/18 17:08 18:37 04:43 WBC 10.1 RBC 4.87 Hgb 15.3 Hct 44.4 MCV 91.1 MCH 31.5 MCHC 34.5 RDW 12.9 Plt Count 144 L Neut % (Auto) 68.5 Lymph % (Auto) 22.0 L Whitman % (Auto) 9.2 Eos % (Auto) 0.1 L Baso % (Auto) 0.2 Neut # (Auto) 6900 H ABG pH 7.33 L ABG pCO2 40.1 ABG pO2 321 H* ABG HCO3 21 L ABG Total CO2 23 ABG O2 Saturation 100 ABG Base Excess -5.0 L FiO2 0.75 Sodium Potassium Chloride Carbon Dioxide BUN Creatinine Estimated GFR BUN/Creatinine Ratio Glucose Lactate 3.1 H Calcium Total Bilirubin Conjugated Bilirubin Unconjugated Bilirubin AST ALT Alkaline Phosphatase Total Protein Albumin Globulin Albumin/Globulin Ratio Nasal Screen MRSA (PCR) Salicylates Urine Opiates Screen Ur Oxycodone Screen Urine Methadone Screen Acetaminophen Ur Barbiturates Screen U Tricyclic Antidepress Ur Phencyclidine Scrn Ur Amphetamines Screen U Methamphetamines Scrn Ur MDMA Scrn (Ecstasy) U Benzodiazepines Scrn Urine Cocaine Screen U Marijuana (THC) Screen Ethyl Alcohol Assessment & Plan Plan: Assessment/Plan Narrative: One. Acute hypoxic respiratory failure with sudden worsening of oxygen saturations. Blood gas from this morning at 4:15 a.m. shows a pH 7.39 pCO2 of 37 and a PO2 of 52 on 100% FiO2 sat of 86%. The patient had worsening hypoxemia I think secondary to the endotracheal tube being up too high. Obvious air leak was heard on exam and the chest x-ray showed the ET tube to be 11 cm above the matthew. We repositioned the endotracheal tube and recheck the x-ray now it is 5 cm above the matthew. And a leak is no more his heard. The patient has been hard to sedate how I will add higher dose of Ativan in addition to the propofol and also have them start giving him morphine I get my 4 mg bolus while we repositioned the tube. Also added peep increase it up to 8 and will continue monitoring him increasing the peep as needed and hopefully be able to wean down the FiO2. 2. Probable aspiration pneumonia as the cause of the acute hypoxic respiratory failure the patient is currently on antibiotics and those will continue 3. Acute hypernatremia sodium level elevated to [address] to [address] him on D5 W IV fluids he had been on D5 NS I think just plain D5 would be appropriate for his hypernatremia. 4. Acute toxic metabolic encephalopathy secondary to alcohol ingestion and ingestion of trazodone. Continue supportive respiratory care and treating for alcohol withdrawal with Ativan as needed while he is intubated probably needs regular dosing of Ativan to prevent alcohol withdrawal 5. Chronic alcoholism with history of suicide ideations. Patient recently was discharged from alcohol rehab and again started to drink. This is been going on for quite some time with the frequent visits to the hospital for similar problems. Ongoing psychiatric assessment and treatment as needed. 60 min of critical care time spent this morning with this patient Time Spent With Patient Time with patient: Greater than 35 minutes Quality VTE Deep Vein Thrombosis/Pulmonary Embolism Present on Admission: No
[2018-01-03] MEDS: ENOXAPARIN 40 MG/0.4 ML SYRINGE SUBCUT (05:12)
[2018-01-03 05:14] LABS: D Dimer 2120 ng/mL (<230)
[2018-01-03] MEDS: DEXTROSE 5% WATER 1,000 ML 125 ML IV ×3 (05:38→23:15)
[2018-01-03 05:51] LABS: Fractionated Inspired Oxygen 100; HCO3 ABG 23 mmol/L (23-27); Oxygen Saturation ABG 86 % (95-100); PO2 ABG 52 mmHg (80-105); TCO2 ABG 24 mmol/L (23-27)
[2018-01-03] MEDS: MORPHINE 2 MG/ML INJ IV ×3 (06:11→21:05)
--- NOTE | 2018-01-03 06:22 | PC.NURSE ---
When patient repositioned at 0200, began getting increasingly restless to the point 50mcg of Propofol and 1 mg Ativan ineffective, air leak around cuff, left lung very decreased and sats in the 80's on 40% where as they had been 99-100%. RT called and worked with ET tube, adjusted FIO2 and no changes noted. Dr. Watkins called and chest x-ray done along with ABG. Dr. Watkins came in and more Ativan and Morphine given, ET tube placement adjusted and new renee applied. More medication given and IV fluids changed. RT now titrating O2 down from 100% to 50%. Isabel draining karsten urine.
[2018-01-03] MEDS: PANTOPRAZOLE 40 MG VIAL IV ×2 (09:17→21:40)
--- NOTE | 2018-01-03 12:07 | PC.NURSE ---
spoke with Dr. Shannon about sedation vacation and cpap trials. doctor states to start tomorrow and keep pt sedated today.
--- NOTE | 2018-01-03 13:35 | PC.NURSE ---
poison control called to check on pt. notified of VS, intubated and sedated
--- NOTE | 2018-01-03 14:06 | PM.PN.1 ---
Subjective Date Patient Seen: 01/03/18 Time Patient Seen: 08:45 Interval history: This is a 28-year-old male with is complex psychiatric problems presenting with altered mental status/encephalopathy secondary to intoxication with alcohol and a trazodone, and resultant acute hypoxic respiratory failure/inability to protect his airways requiring intubation and initiation of mechanical ventilation in the field. Patient comfortably in the ICU, remains intubated, ventilated and sedated on propofol. Overnight, due to the worsening hypoxemia, had to have repositioning of his endotracheal tube was a resolution of worsening hypoxemia. Exam Vital Signs (past 8 hours): - 01/03/18 07:00 01/03/18 08:13 01/03/18 09:00 Temperature 100.7 F H Pulse Rate 116 H 117 H 112 H Respiratory Rate 20 17 17 Blood Pressure 110/68 114/60 103/52 L Pulse Oximetry 97 97 97 01/03/18 10:00 01/03/18 12:00 01/03/18 13:11 Temperature 99.7 F H Pulse Rate 107 H 100 H 101 H Respiratory Rate 19 17 18 Blood Pressure 106/61 105/55 L 105/53 L Pulse Oximetry 98 98 96 Fraction of Inspired Oxygen 35 Oxygen Delivery Method Mechanical Ventilation Narrative Exam Narrative: Constitutional: Well-nourished well-developed male, currently intubated, ventilated and sedated. HEENT: with limited exam. Comfortably with CT and OT tube present. Neck: No jugular venous distention, no bruits auscultated his carotid arteries. Pulmonary: Clear to auscultation bilaterally, no rales crepitations or wheezing Cardiovascular: Patient remains a mild sinus tachycardia is no discernible murmurs Gastrointestinal : abdomen is soft nontender nondistended there is no discernible organomegaly. : with Isabel catheter present. Skin: Warm to touch, skin lesions, no rash Extremities: Warm to touch, no edema Objective Labs Result Diagrams: 01/03/18 04:43 01/03/18 04:43 Labs: Laboratory Results - last 24 hr 01/02/18 01/02/18 01/02/18 13:25 13:25 14:03 WBC RBC Hgb Hct MCV MCH MCHC RDW Plt Count Neut % (Auto) Lymph % (Auto) Humphreys % (Auto) Eos % (Auto) Baso % (Auto) Neut # (Auto) D-Dimer ABG pH 7.21 L* ABG pCO2 34.5 L ABG pO2 63 L ABG HCO3 14 L ABG Total CO2 15 L ABG O2 Saturation 87 L ABG Base Excess -14.0 L FiO2 0.75 Sodium Potassium Chloride Carbon Dioxide BUN Creatinine Estimated GFR BUN/Creatinine Ratio Glucose Lactate Calcium Total Bilirubin AST ALT Alkaline Phosphatase Total Protein Albumin Globulin Albumin/Globulin Ratio Nasal Screen MRSA (PCR) Urine Opiates Screen Negative Ur Oxycodone Screen Negative Urine Methadone Screen Negative Ur Barbiturates Screen Negative U Tricyclic Antidepress Negative Ur Phencyclidine Scrn Negative Ur Amphetamines Screen Negative U Methamphetamines Scrn Negative Ur MDMA Scrn (Ecstasy) Negative U Benzodiazepines Scrn Negative Urine Cocaine Screen Negative U Marijuana (THC) Screen Negative Ethyl Alcohol 525 H* 01/02/18 01/02/18 01/02/18 14:05 15:00 17:08 WBC RBC Hgb Hct MCV MCH MCHC RDW Plt Count Neut % (Auto) Lymph % (Auto) Humphreys % (Auto) Eos % (Auto) Baso % (Auto) Neut # (Auto) D-Dimer ABG pH 7.33 L ABG pCO2 40.1 ABG pO2 321 H* ABG HCO3 21 L ABG Total CO2 23 ABG O2 Saturation 100 ABG Base Excess -5.0 L FiO2 0.75 Sodium Potassium Chloride Carbon Dioxide BUN Creatinine Estimated GFR BUN/Creatinine Ratio Glucose Lactate 3.8 H Calcium Total Bilirubin AST ALT Alkaline Phosphatase Total Protein Albumin Globulin Albumin/Globulin Ratio Nasal Screen MRSA (PCR) Negative for mrsa Urine Opiates Screen Ur Oxycodone Screen Urine Methadone Screen Ur Barbiturates Screen U Tricyclic Antidepress Ur Phencyclidine Scrn Ur Amphetamines Screen U Methamphetamines Scrn Ur MDMA Scrn (Ecstasy) U Benzodiazepines Scrn Urine Cocaine Screen U Marijuana (THC) Screen Ethyl Alcohol 01/02/18 01/03/18 01/03/18 18:37 04:15 04:43 WBC 10.1 RBC 4.87 Hgb 15.3 Hct 44.4 MCV 91.1 MCH 31.5 MCHC 34.5 RDW 12.9 Plt Count 144 L Neut % (Auto) 68.5 Lymph % (Auto) 22.0 L Humphreys % (Auto) 9.2 Eos % (Auto) 0.1 L Baso % (Auto) 0.2 Neut # (Auto) 6900 H D-Dimer ABG pH 7.40 ABG pCO2 37.0 ABG pO2 52 L ABG HCO3 23 ABG Total CO2 24 ABG O2 Saturation 86 L ABG Base Excess -2.0 FiO2 100 Sodium Potassium Chloride Carbon Dioxide BUN Creatinine Estimated GFR BUN/Creatinine Ratio Glucose Lactate 3.1 H Calcium Total Bilirubin AST ALT Alkaline Phosphatase Total Protein Albumin Globulin Albumin/Globulin Ratio Nasal Screen MRSA (PCR) Urine Opiates Screen Ur Oxycodone Screen Urine Methadone Screen Ur Barbiturates Screen U Tricyclic Antidepress Ur Phencyclidine Scrn Ur Amphetamines Screen U Methamphetamines Scrn Ur MDMA Scrn (Ecstasy) U Benzodiazepines Scrn Urine Cocaine Screen U Marijuana (THC) Screen Ethyl Alcohol 01/03/18 01/03/18 04:43 04:43 WBC RBC Hgb Hct MCV MCH MCHC RDW Plt Count Neut % (Auto) Lymph % (Auto) Humphreys % (Auto) Eos % (Auto) Baso % (Auto) Neut # (Auto) D-Dimer 2120 H ABG pH ABG pCO2 ABG pO2 ABG HCO3 ABG Total CO2 ABG O2 Saturation ABG Base Excess FiO2 Sodium 154 H Potassium 4.1 Chloride 113 H Carbon Dioxide 26 BUN 13 Creatinine 0.80 Estimated GFR > 60.0 BUN/Creatinine Ratio 16.3 Glucose 96 Lactate Calcium 8.5 Total Bilirubin 0.3 AST 32 ALT 28 Alkaline Phosphatase 43 Total Protein 6.8 Albumin 4.2 Globulin 2.6 Albumin/Globulin Ratio 1.6 Nasal Screen MRSA (PCR) Urine Opiates Screen Ur Oxycodone Screen Urine Methadone Screen Ur Barbiturates Screen U Tricyclic Antidepress Ur Phencyclidine Scrn Ur Amphetamines Screen U Methamphetamines Scrn Ur MDMA Scrn (Ecstasy) U Benzodiazepines Scrn Urine Cocaine Screen U Marijuana (THC) Screen Ethyl Alcohol Assessment & Plan Plan: Assessment/Plan Narrative: 1. Altered mental status/encephalopathy 2. Alcohol intoxication with intentional overdose on Trazodone. 3. Acute hypoxic respiratory failure 4. Hypernatremia 5. Major depression with history of suicidal ideation 6. Alcoholism; patient was recently discharged from alcohol rehab is immediate relapse. 7. Eating disorder 6. Hypernatremia 7' Clinic for suspected aspiration pneumonia Plan: 1. Continue mechanical ventilation and sedation with Versed. 2. Continue hypertonic IV solutions to address persistent hypernatremia 3. Continue current empiric antibiotic therapy 4. Mental health evaluation when medically stable Time Spent With Patient Time with patient: 25 - 35 minutes Quality VTE Deep Vein Thrombosis/Pulmonary Embolism Present on Admission: No
[2018-01-03] MEDS: DEXTROSE 5% WATER 500 ML IV (14:12)
--- NOTE | 2018-01-03 15:35 | CM.IDA ---
DCP Assessment Note: Pt is a 28 yo male, resident of [place]. Pt intubated today, comes in after an overdose on everclear and trazadone. Pt's PCP is Dr Bains; Insurance is [employer]/Medicaid. Pt well known to this hospital. H/O heavy ETOH, TBI, seizure disorder, multiple suicide attempts per spouse, multiple overdoses and h/o detainment under rashad's law. Pt typically leaves treatment and drinks w/in 24 hours. According to the conversation w/spouse jonmax today: this BABY REGISTRY SALES CONSULTANT last spoke w/Jonay in October after Abhinav returned from treatment in [place], spouse states I can't get DPOA and [place] sent him home without telling me. Abhinav threatened to end his life, Cam called 911 and Abhinav was taken to our ER in October, he was sober so was released, denied SI/HI. Abhinav continued to drink but was agreeable to going to [facility], where they secured a bed at [facility] (to clarify: Voluntary stay). Abhinav left [facility], they released him, per Cam, and got home January 01. On Abhinav's Birthday, Cam states he intentionally overdosed on everclear and trazadone. Cam is teary and states she is frustrated that nothing has worked for Abhinav and he now might . Cam would like to see Abhinav on psychiatric medication for his Bipolar Disorder and she states I Have no idea what they do (at the treatment facilities). This BABY REGISTRY SALES CONSULTANT explained Abhinav remains intubated and if he gets to the point when he can be medically cleared [facility]/DCR will be called. Further steps for appropriate treatment for this unfortunate young man are unknown. Cam admits this is not the same Abhinav. Cam has custody of her 2 yo dtr Aga Herr, they live with Abhinav's mother and sister. CPS had an open case, per Cam, but case was recently closed because Aga has 3 adults capable of caring for her. This BABY REGISTRY SALES CONSULTANT attempted contact w/CPS today but I could not stay on hold indefinitely today. Will attempt again this w/e. Following closely. Nathalie Mccarthy BABY REGISTRY SALES CONSULTANT Discharge Planning/Care Management Discharge Assessment Start: 01/03/18 07:57 Freq: Status: Active Protocol: Document 01/03/18 07:58 SANIA (Rec: 01/03/18 08:04 SANIA [id number]) Discharge Planning Assessment Assigned Bacteriology Professor SANIA DPOA/Assigned Designee Name Alta Herr Contact Information [phone] Advance Directives? No History Provided By Medical Record Prior Living Arrangements House Household Members spouse Comment Still living with baby, spouse , mom and sister ? Type of transporation used prior to Relies on Others admit Independent with ADL's Yes Is patient alert and oriented? No: This is questionable. H/O TBI, heavy ETOH, seizures, intubation Patient/Family Preference Drug/Alcohol Rehab Comment DCR Comment Multiple D/A stays, multiple relapses once home. Barriers to Discharge Yes Comment Unable to remain sober. Constant suicidal ideation/ behaviors Discharge Plan Psychiatric Facility Transportation Arrangement Pending Referrals Initiated Other Additional Comment Per RN: Patient requiring call to [facility] for evaluation under Rashad's Law guidelines. Pt. requesting to leave AMA today. DCR once medically stable enough for evaluation Review Status In Process
[2018-01-03] MEDS: ACETAMINOPHEN 650 MG SUPP PR ×2 (16:00→22:04)
--- NOTE | 2018-01-03 16:09 | PC.NURSE ---
Addendum entered by Mara Nina R.N. 01/03/18 21:33: 2100- Temperature up to 103.6 Patient packed in ice. Heart rate is sinus tachycardia 101-110. Respirations are up to 26 with increased work of breathing. Vent rate is at 12. Urine color is now cola color. Will monitor. Original Note: Addendum entered by Mara Nina R.N. 01/03/18 19:40: 1800- Patient temperature now 102.7 with tylenol per rectum on board. Dr. Shannon notified. Sputum culture sent. Order to start Vancomycin per Pharmacy dosing. Will monitor. Original Note: 1600- Patient has a temp of 101.7. Tylenol 650mg per rectum given and rectal temperature monitor hooked up. Patient lungs sound much worse today than yesterday at admission. Patient has cream colored secretions. SCD's reapplied. Isabel draining but output is considerably less, will monitor closely.
[2018-01-03] MEDS: PROPOFOL 1,000 MG/100 ML VIAL 24.7 MG IV ×2 (16:22→19:27)
--- NOTE | 2018-01-03 17:00 | DI.RAD.S_ITS ---
PROCEDURE: XR CHEST 1V INDICATIONS: vented TECHNIQUE: One view of the chest was acquired. COMPARISON: [facility], CR, XR CHEST 1V, 01/03/2018, 4:41. [facility], CR, XR CHEST 1V, 01/03/2018, 3:42. [facility], CR, XR CHEST 1V, 01/02/2018, 13:43. [facility], CR, XR CHEST 1V, 10/21/2017, 22:13. FINDINGS: Surgical changes and devices: Tubes and catheters are in stable and expected positions. Lungs and pleura: No pleural effusions or pneumothorax. No change in dense retrocardiac pneumonia. Mediastinum: Mediastinal contours appear normal. Heart size is normal. Bones and chest wall: No suspicious bony lesions. Overlying soft tissues appear unremarkable. IMPRESSION: No change in dense retrocardiac pneumonia. Continued plain film surveillance is recommended to ensure resolution, and to exclude underlying or central malignancy. Dictated by: Lucas Serna M.D. on 01/03/2018 at 16:59 Approved by: Lucas Serna M.D. on 01/03/2018 at 16:59
[2018-01-03 20:08] LABS: PCO2 ABG 38.5 mmHg (35-45); pH ABG 7.48 (7.35-7.45)
[2018-01-03 20:09] LABS: Fractionated Inspired Oxygen 35; HCO3 ABG 29 mmol/L (23-27); Oxygen Saturation ABG 96 % (95-100); PO2 ABG 75 mmHg (80-105); TCO2 ABG 30 mmol/L (23-27)
[2018-01-03] MEDS: VANCOMYCIN 1,250 MG in SODIUM CHLORIDE 0.9% 250 ML IV (20:24)
[2018-01-04] VITALS (25 sets, daily range): BP systolic 92–121; BP diastolic 46–70; PULSE 75–104; RESP 12–29; TEMP 36.7–38.9; O2SAT 90–100
--- NOTE | 2018-01-04 | DI.RAD.S_ITS ---
PROCEDURE: XR CHEST 1V INDICATIONS: Respiratory failure, on vent TECHNIQUE: One view of the chest was acquired. COMPARISON: None. FINDINGS: Surgical changes and devices: Tubes and catheters are in stable and expected positions. Lungs and pleura: No pleural effusions or pneumothorax. No change in retrocardiac pneumonia. Mediastinum: Mediastinal contours appear normal. Heart size is normal. Bones and chest wall: No suspicious bony lesions. Overlying soft tissues appear unremarkable. IMPRESSION: No change in retrocardiac pneumonia. Follow up plain films of the chest are recommended to ensure resolution, and to exclude underlying or central malignancy. Dictated by: Lucas Serna M.D. on 01/04/2018 at 8:58 Approved by: Lucas Serna M.D. on 01/04/2018 at 8:59
[2018-01-04] MEDS: LORazepam 2 MG/ML SYRINGE IV ×4 (00:26→06:04)
[2018-01-04] MEDS: PIPERACILLIN-TAZO 3.375 GM/50 ML FROZ.PIGGY IV ×3 (01:40→17:57)
[2018-01-04] MEDS: VANCOMYCIN 1,250 MG in SODIUM CHLORIDE 0.9% 250 ML IV ×3 (03:31→20:38)
[2018-01-04 05:25] LABS: Add Manual Diff / Slide Review NO; Basophils Percent Auto 0.3 % (0-2); Eosinophils Percent Auto 0.5 % (2-4); Hematocrit 35.9 % (41-53); Hemoglobin 12.6 g/dL (13.5-17.5); Lymphocytes Percent Auto 11.9 % (25-40); Mean Corpuscular HGB Conc 35.2 % (30-36); Mean Corpuscular Hemoglobin 31.9 PG (26-34); Mean Corpuscular Volume 90.7 fL (80-100); Monocytes Percent Auto 6.3 % (3-14); Neutrophils Absolute Auto 5800 /uL (3000-5900); Platelet Count 61 X10^3/uL (150-400); Red Blood Cell Count 3.96 X10^6/uL (4.5-5.9); Red Cell Distribution Width 12.9 % (11.6-14.8); White Blood Cell Count 7.2 X10^3/uL (4.5-11.0)
[2018-01-04 05:36] LABS: Alanine Aminotransferase 26 IU/L (21-72); Albumin Globulin Ratio 1.1 (1.0-2.8); Alkaline Phosphatase 44 U/L (38-126); Aspartate Aminotransferase 26 IU/L (17-59); BUN Creatinine Ratio 18.3 (6-22); Bilirubin Total 1.1 mg/dL (0.2-1.3); Blood Urea Nitrogen 11 mg/dL (9-20); Calcium 8.4 mg/dL (8.4-10.2); Carbon Dioxide 29 mmol/L (22-32); Chloride 103 mmol/L (98-107); Estimated Glomerular Filt Rate > 60.0 mL/min (>60); Globulin 2.7 g/dL (1.7-4.1); Glucose 110 mg/dL (70-100); HEMOLYSIS < 15 (0-50); Magnesium 1.2 mg/dL (1.6-2.3); Potassium 3.3 mmol/L (3.4-5.1); Sodium 139 mmol/L (137-145); Total Protein 5.7 g/dL (6.3-8.2)
--- NOTE | 2018-01-04 06:54 | PC.NURSE ---
NOC Shift: Pt remains intubated, vented. Sedated on propofol and intermittent Ativan IVP doses. Pt has periods of agitation, hyperventilation and increased temp now monitored rectally. Does not follow commands, or move with purpose. Withdraws to pain, has frequent notable decerebrate posturing of arms, and rigid extension of legs. When adaquately sedated pt is quiet w/VSS. Increased thick copious amts of green yellow sputum pending culture. Continues to have low UO with IV fluids, aware.
[2018-01-04] MEDS: PROPOFOL 1,000 MG/100 ML VIAL 24.697 MG IV ×5 (07:15→19:49)
[2018-01-04] MEDS: DEXTROSE 5% WATER 1,000 ML 125 ML IV (07:51)
[2018-01-04] MEDS: MORPHINE 2 MG/ML INJ IV (07:55)
[2018-01-04] MEDS: PANTOPRAZOLE 40 MG VIAL IV ×2 (08:00→20:38)
[2018-01-04] MEDS: ENOXAPARIN 40 MG/0.4 ML SYRINGE SUBCUT (08:00)
[2018-01-04] MEDS: MAGNESIUM SULFATE 4 GM/100 ML PIGGYBACK IV (08:48)
--- NOTE | 2018-01-04 09:07 | PM.PN.1 ---
Subjective Date Patient Seen: 01/04/18 Time Patient Seen: 09:00 Interval history: This is a 28-year-old male with complex psychiatric and medical problems presenting with altered mental status/encephalopathy secondary to intoxication with alcohol and an intentional overdose with trazodone, resultant acute hypoxic respiratory failure/inability to protect his airways requiring CPR, intubation and initiation of mechanical ventilation in the field. Patient managed in in the ICU, remains intubated, ventilated and sedated on Propofol. Remain stable, no events overnight. Starting sedation vacation and SBT trials today. Exam Vital Signs (past 8 hours): - 01/04/18 02:05 01/04/18 03:04 01/04/18 04:05 Temperature 100.4 F H 101.3 F H 101.3 F H Pulse Rate 83 103 H 88 Respiratory Rate 16 29 H 17 Blood Pressure 100/62 103/55 L 96/48 L Pulse Oximetry 99 95 97 01/04/18 05:09 01/04/18 06:05 01/04/18 08:18 Temperature 99.5 F 99.3 F 98.6 F Pulse Rate 80 75 75 Respiratory Rate 16 16 15 Blood Pressure 92/47 L 94/47 L 96/46 L Pulse Oximetry 99 100 Fraction of Inspired Oxygen 35 Oxygen Delivery Method Mechanical Ventilation Narrative Exam Narrative: Constitutional: Well-nourished well-developed male, remains intubated, ventilated and sedated. HEENT: with limited exam. Currently with ET and OT tube present. Neck: No jugular venous distention, no bruits auscultated his carotid arteries. Pulmonary: Clear to auscultation bilaterally, no obvious rales ,crepitations or wheezing Cardiovascular: Patient currently in SR with no discernible murmurs Gastrointestinal : abdomen is soft , nontender, nondistended, there is no discernible organomegaly. : with Isabel catheter present. Skin: Warm to touch, skin lesions, no rash Extremities: Warm to touch, no edema. Currently with soft restrains to both wrists. Objective Imaging Chest x-ray: Radiologist's impression: IMPRESSION: No change in retrocardiac pneumonia. Follow up plain films of the chest are recommended to ensure resolution, and to exclude underlying or central malignancy. Dictated by: Luacs Serna M.D. on 01/04/2018 at 8:58 Approved by: Lucas Serna M.D. on 01/04/2018 at 8:59 Labs Result Diagrams: 01/04/18 04:55 01/04/18 04:55 Labs: Laboratory Results - last 24 hr 01/03/18 01/04/18 01/04/18 18:44 04:55 04:55 WBC 7.2 RBC 3.96 L Hgb 12.6 L Hct 35.9 L MCV 90.7 MCH 31.9 MCHC 35.2 RDW 12.9 Plt Count 61 L Neut % (Auto) 81.0 H Lymph % (Auto) 11.9 L [place] % (Auto) 6.3 Eos % (Auto) 0.5 L Baso % (Auto) 0.3 Neut # (Auto) 5800 ABG pH 7.48 H ABG pCO2 38.5 ABG pO2 75 L ABG HCO3 29 H ABG Total CO2 30 H ABG O2 Saturation 96 ABG Base Excess 5.0 H FiO2 35 Sodium 139 D Potassium 3.3 L Chloride 103 Carbon Dioxide 29 BUN 11 Creatinine 0.60 L Estimated GFR > 60.0 BUN/Creatinine Ratio 18.3 Glucose 110 H Calcium 8.4 Magnesium 1.2 L Total Bilirubin 1.1 AST 26 ALT 26 Alkaline Phosphatase 44 Total Protein 5.7 L Albumin 3.0 L Globulin 2.7 Albumin/Globulin Ratio 1.1 Assessment & Plan Plan: Assessment/Plan Narrative: 1. Altered mental status/encephalopathy: Multifactorial, secondary to intentional overdose with alcohol and trazodone, hypoxemia as a result of aspiration pneumonia, need for ongoing sedation with propofol. Start sedation holidays, SBT trials. 2. Alcohol intoxication with intentional overdose on Trazodone: Continue current symptomatic and supportive care, management as above. 3. Acute hypoxic respiratory failure: Secondary to above. Chest x-ray was persistent dense retrocardiac consolidation. Continue current IV antibiotic therapy with IV vancomycin and Zosyn. Patient remains intubated and ventilated. Start sedation vacation and SBT trials 4. Hypernatremia: Secondary to dehydration and volume depletion, resolved. Discontinue IV hydration with hypotonic solutions. 5. Major depression with history of suicidal ideation: Anticipate need for mental health professional evaluation when medically stable 6. Alcoholism; patient was recently discharged from alcohol rehab is immediate relapse. Complex sedated with propofol, continue IV thiamine supplementation 7. Protein calorie malnutrition, moderate to severe: Secondary to above. Request diet consultation, start tube feeding via selvin-gastric tube. 6. Aspiration pneumonia: Interval chest x-ray was persistent consultation in retrocardiac area. Continue current antibiotic therapy as above. Quality VTE Deep Vein Thrombosis/Pulmonary Embolism Present on Admission: No
[2018-01-04] MEDS: SODIUM CHLORIDE 0.9% 1,000 ML 125 ML IV (11:13)
[2018-01-04] MEDS: POTASSIUM CHLORIDE 20 MEQ in SODIUM CHLORIDE 0.9% 250 ML 130 ML IV (12:32)
[2018-01-04] MEDS: DEXTROSE 5% WATER 500 ML IV (14:52)
--- NOTE | 2018-01-04 17:00 | DI.RAD.S_ITS ---
PROCEDURE: XR CHEST 1V INDICATIONS: vented TECHNIQUE: One view of the chest was acquired. COMPARISON: None. FINDINGS: Surgical changes and devices: Tubes and catheters are in stable and expected positions. Lungs and pleura: No pleural effusions or pneumothorax. Decreased retrocardiac opacification. Mediastinum: Mediastinal contours appear normal. Heart size is normal. Bones and chest wall: No suspicious bony lesions. Overlying soft tissues appear unremarkable. IMPRESSION: Resolving left basilar pneumonia. Dictated by: Lucas Serna M.D. on 01/04/2018 at 17:33 Approved by: Lucas Serna M.D. on 01/04/2018 at 17:33
[2018-01-04 19:58] LABS: Hematocrit 35.5 % (41-53); Hemoglobin 12.8 g/dL (13.5-17.5); Mean Corpuscular HGB Conc 35.9 % (30-36); Mean Corpuscular Hemoglobin 32.2 PG (26-34); Mean Corpuscular Volume 89.6 fL (80-100); Platelet Count 66 X10^3/uL (150-400); Red Blood Cell Count 3.96 X10^6/uL (4.5-5.9); Red Cell Distribution Width 12.9 % (11.6-14.8); White Blood Cell Count 9.9 X10^3/uL (4.5-11.0)
[2018-01-04 20:01] LABS: Add Manual Diff / Slide Review YES
[2018-01-04 20:07] LABS: Alanine Aminotransferase 28 IU/L (21-72); Albumin 3.2 g/dL (3.5-5.0); Albumin Globulin Ratio 1.1 (1.0-2.8); Alkaline Phosphatase 60 U/L (38-126); Aspartate Aminotransferase 28 IU/L (17-59); BUN Creatinine Ratio 11.7 (6-22); Bilirubin Total 1.1 mg/dL (0.2-1.3); Blood Urea Nitrogen 7 mg/dL (9-20); Calcium 8.5 mg/dL (8.4-10.2); Carbon Dioxide 27 mmol/L (22-32); Chloride 105 mmol/L (98-107); Estimated Glomerular Filt Rate > 60.0 mL/min (>60); Globulin 2.8 g/dL (1.7-4.1); Glucose 114 mg/dL (70-100); HEMOLYSIS < 15 (0-50); Potassium 3.7 mmol/L (3.4-5.1); Sodium 138 mmol/L (137-145)
[2018-01-04 20:23] LABS: Vancomycin Trough 10.3 ug/mL (10-20)
[2018-01-04 20:25] LABS: Neutrophils Absolute Manual 9009 /uL (3000-5900); Total Cells Counted 100
[2018-01-05] VITALS (20 sets, daily range): BP systolic 93–145; BP diastolic 47–97; PULSE 84–108; RESP 13–55; TEMP 36.2–38.4; O2SAT 95–100
[2018-01-05] MEDS: PROPOFOL 1,000 MG/100 ML VIAL 24.697 MG IV ×2 (00:53→04:41)
[2018-01-05] MEDS: LORazepam 2 MG/ML SYRINGE IV ×3 (00:54→22:32)
[2018-01-05] MEDS: PIPERACILLIN-TAZO 3.375 GM/50 ML FROZ.PIGGY IV ×3 (01:00→17:22)
[2018-01-05] MEDS: VANCOMYCIN 1,250 MG in SODIUM CHLORIDE 0.9% 250 ML IV ×3 (02:01→20:23)
[2018-01-05 08:27] LABS: Add Manual Diff / Slide Review NO; Basophils Percent Auto 0.1 % (0-2); Eosinophils Percent Auto 1.6 % (2-4); Hematocrit 31.5 % (41-53); Hemoglobin 11.1 g/dL (13.5-17.5); Lymphocytes Percent Auto 9.3 % (25-40); Mean Corpuscular HGB Conc 35.2 % (30-36); Mean Corpuscular Hemoglobin 32.1 PG (26-34); Mean Corpuscular Volume 91.2 fL (80-100); Monocytes Percent Auto 5.2 % (3-14); Neutrophils Absolute Auto 5200 /uL (3000-5900); Neutrophils Percent Auto 83.8 % (50-75); Platelet Count 55 X10^3/uL (150-400); Red Blood Cell Count 3.46 X10^6/uL (4.5-5.9); Red Cell Distribution Width 12.9 % (11.6-14.8); White Blood Cell Count 6.2 X10^3/uL (4.5-11.0)
[2018-01-05 08:40] LABS: Alanine Aminotransferase 33 IU/L (21-72); Albumin 2.7 g/dL (3.5-5.0); Alkaline Phosphatase 63 U/L (38-126); Aspartate Aminotransferase 45 IU/L (17-59); Bilirubin Total 0.8 mg/dL (0.2-1.3); Blood Urea Nitrogen 8 mg/dL (9-20); Calcium 7.9 mg/dL (8.4-10.2); Carbon Dioxide 27 mmol/L (22-32); Chloride 108 mmol/L (98-107); Estimated Glomerular Filt Rate > 60.0 mL/min (>60); Globulin 2.6 g/dL (1.7-4.1); Glucose 95 mg/dL (70-100); HEMOLYSIS < 15 (0-50); Potassium 3.5 mmol/L (3.4-5.1); Sodium 141 mmol/L (137-145); Total Protein 5.3 g/dL (6.3-8.2)
[2018-01-05] MEDS: SODIUM CHLORIDE 0.9% 1,000 ML 125 ML IV ×3 (09:11→19:26)
[2018-01-05] MEDS: PANTOPRAZOLE 40 MG VIAL IV ×2 (09:17→20:24)
[2018-01-05] MEDS: ENOXAPARIN 40 MG/0.4 ML SYRINGE SUBCUT (09:17)
[2018-01-05 10:06] LABS: Magnesium 1.6 mg/dL (1.6-2.3)
--- NOTE | 2018-01-05 12:01 | PM.PN.1 ---
Subjective Date Patient Seen: 01/05/18 Time Patient Seen: 07:00 Interval history: This is a 28-year-old male with complex psychiatric and medical problems presenting with altered mental status/encephalopathy secondary to intoxication with alcohol and an intentional overdose with trazodone, resultant acute hypoxic respiratory failure/inability to protect his airways requiring CPR, intubation and initiation of mechanical ventilation in the field. Patient managed in in the ICU, remains intubated, ventilated and sedated on Propofol. Remain stable, no events overnight. Started sedation vacations and SBT trials .Overnight with fever of 101.2 noted Exam Vital Signs (past 8 hours): - 01/05/18 04:24 01/05/18 07:42 01/05/18 09:06 Temperature 98.8 F 101.2 F H Pulse Rate 84 88 99 H Respiratory Rate 25 H 22 17 Blood Pressure 109/58 L 93/47 L 105/63 Pulse Oximetry 98 98 98 01/05/18 10:57 01/05/18 11:45 Temperature 100.9 F H Pulse Rate 104 H Respiratory Rate 15 Blood Pressure 97/59 L Pulse Oximetry 100 99 Fraction of Inspired Oxygen 30 Oxygen Delivery Method Mechanical Ventilation Narrative Exam Narrative: Constitutional: Well-nourished well-developed male, remains intubated, ventilated and sedated. HEENT: with limited exam. Currently with ET and OT tube present. Neck: No jugular venous distention, no bruits auscultated his carotid arteries. Pulmonary: Clear to auscultation bilaterally, no obvious rales ,crepitations or wheezing Cardiovascular: Patient currently in SR with no discernible murmurs Gastrointestinal : abdomen is soft , nontender, nondistended, there is no discernible organomegaly. : with Isabel catheter present. Skin: Warm to touch, skin lesions, no rash Extremities: Warm to touch, no edema. Currently with soft restrains to both wrists. Objective Imaging Chest x-ray: Radiologist's impression: IMPRESSION: 1. Endotracheal tube tip approximately 2.1 cm from the matthew. Consider withdrawal by approximately 2 cm. 2. Persistent patchy left basilar opacities with areas of confluence in the left retrocardiac region suggestive of pneumonia. Dictated by: Silvio Jones M.D. on 01/05/2018 at 11:39 Approved by: Silvio Jones M.D. on 01/05/2018 at 11:44 Labs Result Diagrams: 01/05/18 07:45 01/05/18 07:45 Labs: Laboratory Results - last 24 hr 01/04/18 01/04/18 01/04/18 19:45 19:45 19:45 WBC 9.9 RBC 3.96 L Hgb 12.8 L Hct 35.5 L MCV 89.6 MCH 32.2 MCHC 35.9 RDW 12.9 Plt Count 66 L Neut % (Auto) Not Reportable Lymph % (Auto) Not Reportable [place] % (Auto) Not Reportable Eos % (Auto) Not Reportable Baso % (Auto) Not Reportable Neut # (Auto) Total Counted 100 Seg Neutrophils % 75.0 H Band Neutrophils % 16.0 H Lymphocytes % (Manual) 7.0 L Monocytes % (Manual) 2.0 Neutrophils # (Manual) 9009 H RBC Morphology Not Reportable Sodium 138 Potassium 3.7 Chloride 105 Carbon Dioxide 27 BUN 7 L Creatinine 0.60 L Estimated GFR > 60.0 BUN/Creatinine Ratio 11.7 Glucose 114 H Calcium 8.5 Magnesium Total Bilirubin 1.1 AST 28 ALT 28 Alkaline Phosphatase 60 Total Protein 6.0 L Albumin 3.2 L Globulin 2.8 Albumin/Globulin Ratio 1.1 Vancomycin Trough 10.3 01/05/18 01/05/18 01/05/18 07:45 07:45 07:45 WBC 6.2 RBC 3.46 L Hgb 11.1 L Hct 31.5 L MCV 91.2 MCH 32.1 MCHC 35.2 RDW 12.9 Plt Count 55 L Neut % (Auto) 83.8 H Lymph % (Auto) 9.3 L [place] % (Auto) 5.2 Eos % (Auto) 1.6 L Baso % (Auto) 0.1 Neut # (Auto) 5200 Total Counted Seg Neutrophils % Band Neutrophils % Lymphocytes % (Manual) Monocytes % (Manual) Neutrophils # (Manual) RBC Morphology Sodium 141 Potassium 3.5 Chloride 108 H Carbon Dioxide 27 BUN 8 L Creatinine 0.50 L Estimated GFR > 60.0 BUN/Creatinine Ratio 16.0 Glucose 95 Calcium 7.9 L Magnesium 1.6 Total Bilirubin 0.8 AST 45 ALT 33 Alkaline Phosphatase 63 Total Protein 5.3 L Albumin 2.7 L Globulin 2.6 Albumin/Globulin Ratio 1.0 Vancomycin Trough Assessment & Plan Plan: Assessment/Plan Narrative: 1. Altered mental status/encephalopathy: Multifactorial,slowly resolving, secondary to intentional overdose with alcohol and trazodone, hypoxemia as a result of aspiration pneumonia, need for ongoing sedation with propofol. Started sedation holidays, SBT trials. 2. Alcohol intoxication with intentional overdose on Trazodone: Continue current symptomatic and supportive care, management as above.Anticipate need for MHP evaluation when medically stable. 3. Acute hypoxic respiratory failure: Secondary to above. Chest x-ray with persistent dense retrocardiac consolidation. Continue current IV antibiotic therapy with IV vancomycin and Zosyn. Patient remains intubated and ventilated. Start sedation vacation and SBT trials 4. Aspiration PNA:as above, fever of 101.2 was noted overnight, wbc remains normal, sputum is growing Staph,Aureus with final identification pending, continue current IV abx tx as above, follow up with repeat CXR. 5. Hypernatremia: Secondary to dehydration and volume depletion, resolved. Discontinue IV hydration with hypotonic solutions. 6. Major depression with history of suicidal ideation: Anticipate need for mental health professional evaluation when medically stable 7. Alcoholism; patient was recently discharged from alcohol rehab with immediate relapse. Remains sedated with propofol, continue IV thiamine supplementation 8. Protein calorie malnutrition, moderate to severe: Secondary to above. Request diet consultation, start tube feeding via selvin-gastric tube. Time Spent With Patient Time with patient: 25 - 35 minutes Quality VTE Deep Vein Thrombosis/Pulmonary Embolism Present on Admission: No
[2018-01-05 12:38] LABS: HCO3 ABG 24 mmol/L (23-27); Oxygen Saturation ABG 98 % (95-100); PCO2 ABG 31.4 mmHg (35-45); PO2 ABG 100 mmHg (80-105); TCO2 ABG 25 mmol/L (23-27); pH ABG 7.49 (7.35-7.45)
--- NOTE | 2018-01-05 14:05 | PC.NURSE ---
PT STARTED SEDATION VACATION AT 0840 BY TURNING PROPOFOL COMPLETELY OFF-SBT INITIATED AT 1030-JAMES, AND ABLE TO EXTUBATE AT 1235 TO HEATED HI-FLOW CANNULA AT 35% FIO2- HIS SPO2 REMAINS IN THE MID-HIGH 90'S WITH RR 28-40 STRONG COUGH NOTED, OCC OPENING OF EYES BUT NO FOLLOWING COMMANDS OF STAFF- MAYO PATENT WITH GREEN TINGED UOP- TUBE FEEDING D/C'D AT TIME OF EXTUBATION AND RESTRAINTS RELEASED AT THIS TIME, , SHAR AT BEDSIDE AND TEARFUL
--- NOTE | 2018-01-05 17:00 | DI.RAD.S_ITS ---
PROCEDURE: XR CHEST 1V INDICATIONS: vented TECHNIQUE: One view of the chest was acquired. COMPARISON: [facility], CR, XR CHEST 1V, 01/04/2018, 5:25. [facility], CR, XR CHEST 1V, 01/04/2018, 17:00. FINDINGS: Surgical changes and devices: Endotracheal tube redemonstrated with the tip approximately 2.1 cm from the matthew. Nasogastric tube redemonstrated extending into the stomach. Lungs and pleura: There are persistent patchy left basilar opacities including confluent left retrocardiac opacities. Mild pulmonary vascular prominence is noted suggestive of mild edema. No pleural effusions or pneumothorax. Mediastinum: Mediastinal contours appear unchanged. Heart size is normal. Bones and chest wall: No suspicious bony lesions. Overlying soft tissues appear unremarkable. IMPRESSION: 1. Endotracheal tube tip approximately 2.1 cm from the matthew. Consider withdrawal by approximately 2 cm. 2. Persistent patchy left basilar opacities with areas of confluence in the left retrocardiac region suggestive of pneumonia. Dictated by: Silvio Jones M.D. on 01/05/2018 at 11:39 Approved by: Silvio Jones M.D. on 01/05/2018 at 11:44
[2018-01-05] MEDS: ALBUTEROL 2.5 MG/3 ML NEB (ADULT) INH (17:06)
[2018-01-05 17:12] LABS: Alanine Aminotransferase 38 IU/L (21-72); Albumin Globulin Ratio 1.1 (1.0-2.8); Alkaline Phosphatase 61 U/L (38-126); Aspartate Aminotransferase 51 IU/L (17-59); Bilirubin Total 1.2 mg/dL (0.2-1.3); Blood Urea Nitrogen 7 mg/dL (9-20); Calcium 8.1 mg/dL (8.4-10.2); Carbon Dioxide 26 mmol/L (22-32); Chloride 110 mmol/L (98-107); Estimated Glomerular Filt Rate > 60.0 mL/min (>60); Globulin 2.8 g/dL (1.7-4.1); Glucose 100 mg/dL (70-100); HEMOLYSIS 19 (0-50); Potassium 3.6 mmol/L (3.4-5.1); Sodium 143 mmol/L (137-145); Total Protein 5.8 g/dL (6.3-8.2)
[2018-01-05 17:13] LABS: Basophils Percent Auto 0.3 % (0-2); Eosinophils Percent Auto 0.8 % (2-4); Hematocrit 33.2 % (41-53); Hemoglobin 11.7 g/dL (13.5-17.5); Lymphocytes Percent Auto 13.9 % (25-40); Mean Corpuscular HGB Conc 35.3 % (30-36); Mean Corpuscular Hemoglobin 32.1 PG (26-34); Monocytes Percent Auto 4.9 % (3-14); Neutrophils Absolute Auto 5300 /uL (3000-5900); Neutrophils Percent Auto 80.1 % (50-75); Platelet Count 56 X10^3/uL (150-400); Red Blood Cell Count 3.65 X10^6/uL (4.5-5.9); Red Cell Distribution Width 12.4 % (11.6-14.8); White Blood Cell Count 6.6 X10^3/uL (4.5-11.0)
[2018-01-05 17:59] LABS: Add Manual Diff / Slide Review NO
--- NOTE | 2018-01-05 21:01 | RT ---
BRONCHODILATOR NOT NEEDED AT THIS TIME.
--- NOTE | 2018-01-05 23:02 | PC.NURSE ---
0 - Patient more awake and rolling around in bed. Repeatedly removes HHF cannula and pulse oximeter. Attempted multiple times to orient patient and keep him in bed, repeatedly thrashed about and said fuck. Makes grunting noises and attempts to hit with arms. Patient not following commands. Medicated with ativan per orders for patient safety.
[2018-01-05] MEDS: HALOPERIDOL 5 MG/ML VIAL 2 MG IV (23:45)
[2018-01-06] VITALS (7 sets, daily range): BP systolic 108–123; BP diastolic 62–83; PULSE 77–106; RESP 20–28; TEMP 37.2–37.4; O2SAT 91–100; BMI 21.3
[2018-01-06] MEDS: LORazepam 2 MG/ML SYRINGE IV ×2 (00:28→10:38)
[2018-01-06] MEDS: PIPERACILLIN-TAZO 3.375 GM/50 ML FROZ.PIGGY IV ×2 (01:21→10:29)
[2018-01-06] MEDS: VANCOMYCIN 1,250 MG in SODIUM CHLORIDE 0.9% 250 ML IV ×2 (04:10→11:15)
[2018-01-06 05:05] LABS: Add Manual Diff / Slide Review NO; Basophils Percent Auto 0.3 % (0-2); Hematocrit 29.9 % (41-53); Hemoglobin 10.5 g/dL (13.5-17.5); Lymphocytes Percent Auto 14.6 % (25-40); Mean Corpuscular HGB Conc 35.3 % (30-36); Mean Corpuscular Volume 90.7 fL (80-100); Monocytes Percent Auto 7.6 % (3-14); Neutrophils Absolute Auto 4100 /uL (3000-5900); Neutrophils Percent Auto 76.5 % (50-75); Platelet Count 48 X10^3/uL (150-400); Red Blood Cell Count 3.29 X10^6/uL (4.5-5.9); Red Cell Distribution Width 12.6 % (11.6-14.8); White Blood Cell Count 5.4 X10^3/uL (4.5-11.0)
[2018-01-06 05:14] LABS: Alanine Aminotransferase 30 IU/L (21-72); Albumin 2.7 g/dL (3.5-5.0); Alkaline Phosphatase 54 U/L (38-126); Aspartate Aminotransferase 49 IU/L (17-59); Bilirubin Total 1.2 mg/dL (0.2-1.3); Blood Urea Nitrogen 6 mg/dL (9-20); Carbon Dioxide 23 mmol/L (22-32); Chloride 111 mmol/L (98-107); Estimated Glomerular Filt Rate > 60.0 mL/min (>60); Globulin 2.6 g/dL (1.7-4.1); Glucose 86 mg/dL (70-100); HEMOLYSIS < 15 (0-50); Magnesium 1.3 mg/dL (1.6-2.3); Potassium 3.3 mmol/L (3.4-5.1); Sodium 146 mmol/L (137-145); Total Protein 5.3 g/dL (6.3-8.2)
--- NOTE | 2018-01-06 06:26 | PC.NURSE ---
NOC Shift: Pt extubated to 50% heated [place], continues to have wet, barking non-productive cough, coarse BS. Tachypniec, stable sats. Early in shift pt. is restless, pulling off O2 therapy, pulling at lines, cables hitting staff when near. Remains confused, agitated. Does not follow commands, and only speaks swear words at staff. Will not answer questions. Pt also pulled out murphy catheter, tip intact. Pt having loose incontinent stools will leave murphy out and use brief w/frequent skin care. Dr. Shannon notified of pt's increasing agitation, hostility. Haldol prn ordered, and soft restraints ordered prn safety. Soft wrist restraints placed to keep pt from pulling IV's, lines, and O2 off. VSS, SR/ST on tele. Remains NPO unable to eval swallow ability at this time. ICU care.
[2018-01-06] MEDS: SODIUM CHLORIDE 0.9% 1,000 ML 125 ML IV ×2 (06:31→18:13)
[2018-01-06] MEDS: MAGNESIUM SULFATE 4 GM/100 ML PIGGYBACK IV (08:13)
[2018-01-06] MEDS: PANTOPRAZOLE 40 MG VIAL IV ×2 (08:18→21:10)
[2018-01-06] MEDS: ENOXAPARIN 40 MG/0.4 ML SYRINGE SUBCUT (08:18)
[2018-01-06] MEDS: POTASSIUM CHLORIDE 20 MEQ in SODIUM CHLORIDE 0.9% 250 ML 130 ML IV (09:07)
[2018-01-06] MEDS: MORPHINE 2 MG/ML INJ IV (10:38)
[2018-01-06] MEDS: levoFLOXacin 750 MG/150 ML PIGGYBACK 100 MG IV (11:54)
--- NOTE | 2018-01-06 15:15 | PM.PN.1 ---
Subjective Date Patient Seen: 01/06/18 Time Patient Seen: 07:30 Interval history: This is a 28-year-old male with complex psychiatric and medical problems presenting with altered mental status/encephalopathy secondary to intoxication with alcohol and an intentional overdose with trazodone, resultant acute hypoxic respiratory failure/inability to protect his airways requiring CPR, intubation and initiation of mechanical ventilation in the field. Patient managed in in the ICU, yesterday evening was extubated and taken off sedation was propofol. Episodes of delirium/psychosis was observed last night about this by parent use of Haldol. Currently resting comfortably in his bed. Exam Vital Signs (past 8 hours): - 01/06/18 08:00 01/06/18 12:00 Temperature 99.0 F 99.1 F Pulse Rate 77 91 H Respiratory Rate 20 22 Blood Pressure 109/62 120/75 Pulse Oximetry 100 98 Fraction of Inspired Oxygen 35 Oxygen Delivery Method Room Air Oxygen Flow Rate 50 Narrative Exam Narrative: Constitutional: Well-nourished well-developed male, resting comfortably on his bed. HEENT: Unremarkable exam Neck: No jugular venous distention, no bruits auscultated his carotid arteries. Pulmonary: Clear to auscultation bilaterally, no obvious rales ,crepitations or wheezing Cardiovascular: Patient currently in SR with no discernible murmurs Gastrointestinal : abdomen is soft , nontender, nondistended, there is no discernible organomegaly. : with Isabel catheter present. Skin: Warm to touch, skin lesions, no rash Extremities: Warm to touch, no edema. Currently with soft restrains to both wrists. Objective Imaging Chest x-ray: Radiologist's impression: Chest x-ray: Radiologist's impression: IMPRESSION: 1. Endotracheal tube tip approximately 2.1 cm from the matthew. Consider withdrawal by approximately 2 cm. 2. Persistent patchy left basilar opacities with areas of confluence in the left retrocardiac region suggestive of pneumonia. Dictated by: Silvio Jones M.D. on 01/05/2018 at 11:39 Approved by: Silvio Jones M.D. on 01/05/2018 at 11:44 Labs Result Diagrams: 01/06/18 04:47 01/06/18 04:47 Labs: Laboratory Results - last 24 hr 08/19/18 08/19/18 08/19/18 12:26 16:55 16:55 WBC 6.6 RBC 3.65 L Hgb 11.7 L Hct 33.2 L MCV 91.0 MCH 32.1 MCHC 35.3 RDW 12.4 Plt Count 56 L Neut % (Auto) 80.1 H Lymph % (Auto) 13.9 L [place] % (Auto) 4.9 Eos % (Auto) 0.8 L Baso % (Auto) 0.3 Neut # (Auto) 5300 FiO2 0.30 Sodium 143 Potassium 3.6 Chloride 110 H Carbon Dioxide 26 BUN 7 L Creatinine 0.50 L Estimated GFR > 60.0 BUN/Creatinine Ratio 14.0 Glucose 100 Calcium 8.1 L Magnesium Total Bilirubin 1.2 AST 51 ALT 38 Alkaline Phosphatase 61 Total Protein 5.8 L Albumin 3.0 L Globulin 2.8 Albumin/Globulin Ratio 1.1 01/06/18 01/06/18 04:47 04:47 WBC 5.4 RBC 3.29 L Hgb 10.5 L Hct 29.9 L MCV 90.7 MCH 32.0 MCHC 35.3 RDW 12.6 Plt Count 48 L Neut % (Auto) 76.5 H Lymph % (Auto) 14.6 L [place] % (Auto) 7.6 Eos % (Auto) 1.0 L Baso % (Auto) 0.3 Neut # (Auto) 4100 FiO2 Sodium 146 H Potassium 3.3 L Chloride 111 H Carbon Dioxide 23 BUN 6 L Creatinine 0.50 L Estimated GFR > 60.0 BUN/Creatinine Ratio 12.0 Glucose 86 Calcium 8.0 L Magnesium 1.3 L Total Bilirubin 1.2 AST 49 ALT 30 Alkaline Phosphatase 54 Total Protein 5.3 L Albumin 2.7 L Globulin 2.6 Albumin/Globulin Ratio 1.0 Assessment & Plan Plan: Assessment/Plan Narrative: 1. Altered mental status/encephalopathy: Multifactorial, resolving, secondary to intentional overdose with alcohol and trazodone, hypoxemia as a result of aspiration pneumonia, need for sedation with propofol. Continue to treat underlying medical problems. 2. Alcohol intoxication with intentional overdose on Trazodone: Resolving. Continue current symptomatic and supportive care, management as above.Anticipate need for MHP evaluation when medically stable. 3. Acute hypoxic respiratory failure: Secondary to above, resolving. Chest x-ray with persistent dense retrocardiac consolidation. Current IV antibiotic therapy with IV vancomycin and Zosyn with changed to IV Levaquin. Patient got successfully extubated yesterday evening, doing well on the limited oxygen support via nasal cannula. 4. Aspiration PNA:as above, resolving. wbc remains normal, sputum is growing MSSA , continue current IV abx tx as above, follow up with repeat CXR. 5. Hypernatremia: Secondary to dehydration and volume depletion, resolved. 6. Major depression with history of suicidal ideation: Anticipate need for mental health professional evaluation when medically stable 7. Alcoholism; patient was recently discharged from alcohol rehab with immediate relapse. Remains sedated with propofol, continue IV thiamine supplementation 8. Protein calorie malnutrition, moderate to severe: Secondary to above. Transtiion from tube feeding to oral intake as tolerated. Time Spent With Patient Time with patient: 25 - 35 minutes Quality VTE Deep Vein Thrombosis/Pulmonary Embolism Present on Admission: No
--- NOTE | 2018-01-06 15:47 | CM.DPC ---
Addendum entered by KANDI Thompson 01/06/18 16:09: ADD: Per previous SW, pt's spouse Cam had confirmed that they had been open with CPS but currently no open case due to determination that Cam's dtr had multiple supportive adults in her life outside of the pt. SW called CPS with informational update and confirmed that there is no open CPS case on the pt's Dtr and currently no concerns with Cam and grandmother. BF Original Note: DCP Cont: Per MD, pt was successfully extubated yesterday 01/05/18 and was on heated high flow oxygen and required some Haldol in the middle of the night due to agitation and pulling at lines and was on soft wrist restraints and had confusion. Per RN, pt now off restraints and has not been given any further Haldol but not currently clear and oriented. Pt not currently on mental health medication although had been given 5 Trazadone pills when he was discharged from Inpt CD tx at [facility] on Jan 01, which pt ingested with alcohol prior to admit to [facility]. Per previous SW note, Cam was asking for Mental Health treatment/support, especially since pt has attempted Inpt CD treatment multiple times and continues to relapse upon discharge with significant medical complications including intubation. RN inquired about possible Psych Consult and SW inquired with MD about Psych Consult order and MD to MD discussion with Dr. Rollins at [facility]. MD states that since pt is not medically stable he would like to wait until tomorrow before placing order for Psych Consult. SW attempted to call [facility] to discuss pt situation regarding the pt and to inquire about possible options that would include Mental Health vs CD tx since pt has relapsed with severe medical complications multiple times but since pt is not medically stable [facility] requesting SW call tomorrow (01/07). Plan: SW to follow closely tomorrow with MD regarding Psych Consult referral for Dr. Rollins. SW to follow for bedside assessment with pt when he is more alert and oriented to determine if pt is voluntary vs involuntary and further discussion with [facility] when pt is medically stable to determine if Andrey's Law applies and possible options since pt has continued to relapse with severe consequences. KANDI Thompson
[2018-01-06] MEDS: ACETAMINOPHEN 325 MG TABLET 650 MG PO (17:00)
--- NOTE | 2018-01-06 17:00 | ST.IPIE ---
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 Shannon Reason for Referral Determine safest diet and assess cognition Setting Assessment Location Acute Care Visit Type Note Type Initial Evaluation Next Note Type Next Note Type Treatment Note Patient Information Identification Type Name History Patient is a 28 year old male who was extubated yesterday after being emergently intubated by EMS when he was found down and unresponsive. He has a known history of overdose of prescription medicine and alcohol. He was in alcohol rehab and was discharged one day prior to this episode. He has a history of alcoholism, depression, eating disorder, epilepsy, and low back pain. Subjective Observations Patient's present in room . Patient awake, but slow to respond. He agreed to an evaluation, stated he was starving and asked for a cheeseburger. His voice was audible, but hoarse. He stated his throat was dry. Evaluation Liquids Trialed Ice Chips Thin Solids Trialed Puree Dysphagia Mechanical Dysphagia Advanced Regular Administration Type Tea Spoon Cup Single Sip Straw Dependent Feeding Oral Impairment Moderately Impaired Oral Strategies Upright at 90 degrees Controlled Bite/Sip Size Alternate Liquids/Solids Oral Phase Comments Oral peripheral examination revealed moderately reduced lingual and labial strength, range of motion and coordination. Patient's left eye lid was closed during the entirety of the exam. Mild left facial droop observed at rest. No lingual deviation observed on protrusion. Patient did not smile when asked, therefore, unable to fully assess facial droop during labial retraction. Oral prep phase was significantly impaired as patient demonstrated severe impairments in coordination and was unable to self-feed. During the oral phase, mild anterior loss of bolus was observed with teaspoon administered bites of fruit. Patient attempted to wipe his mouth with his gown, but had difficulty coordinating this task. Patient required extended time for mastication and demonstrated slow bolus manipulation and transit. Mild oral residue observed with trials of dysphagia advanced ( tropical fruit) and regular textures (saltine cracker). Pharyngeal Impairment Mildly Impaired Pharyngeal Strategies Small Bites and Sips Alternate Liquids/Solids Pharyngeal Phase Comments Patient exhibited a weak throat clear and cough. He did not swallow on command when asked twice, but laryngeal elevation was present on palpation during first trial of ice chip. Patient consumed multiple sips of water ( teaspoon, cup sip, straw sip and consecutive straw sip) with out overt signs or symptoms of aspiration. He exhibited a throat clear with the initial trial of tropical fruit and a cough with the saltine cracker. No other signs or symptoms of aspiration were observed. The pharyngeal phase of swallowing cannot be fully assess without an instrumental assessment; however, patient does not show signs of overt aspiration with thin liquids and dysphagia mechanical textures at this time. Findings Dysphagia Type Oropharyngeal Rehabilitation Potential Fair Impressions Patient presents with moderate oropharyngeal dysphagia and requires 1:1 assistance during meals at this time. A cognitive evaluation was attempted, but discontinued half way through, per patient request. He scored 5/14 on the first 7 questions of the [facility] examination before stating I don't have the capacity enough for this. He was able to state his 's name, city, state, and year. He recalled 2/5 objects during short term recall. He named 5 animals in one minute during the divergent naming task. Diet Recommendations Liquids Order Thin Diet Order Dysphagia Mechanical Medication Recommendations As Tolerated Additional Dietary Needs 1:1 Assistance Reminders to Use Strategies Aspiration Precautions Recommended Precautions Upright at 90 Degrees Alternate Liquids/Solids Small Bites/Sips Check for Pocketing Treatment Plan Placement Recommendations after Other Discharge Appropriate for Therapy Yes Therapy Recommendations Follow patient for diet advancement when appropriate as well as ongoing cognitive evaluation. Dysphagia Goals Client will maintain adequate hydration/nutrition with optimum safety and efficiency of swallowing function on P.O. intake without overt signs and symptoms of aspiration for the highest appropriate diet level
--- NOTE | 2018-01-06 17:20 | PC.NURSE ---
Pt c/o generalized aches, APAP given crushed in applesauce. Set up for meal. Generalized weakness, 1:1 assist. Poison Control called check pt status. Reviewed current VS and mentation.
[2018-01-07 00:05] VITALS: BP 108/77; PULSE 90; RESP 27; TEMP 37.1; O2SAT 96
[2018-01-07] MEDS: MORPHINE 2 MG/ML INJ IV (01:22)
[2018-01-07] MEDS: SODIUM CHLORIDE 0.9% 1,000 ML 125 ML IV (02:20)
[2018-01-07 04:19] VITALS: BP 116/69; PULSE 87; RESP 26; TEMP 36.9; O2SAT 94
[2018-01-07 04:54] LABS: Alanine Aminotransferase 33 IU/L (21-72); Albumin 2.7 g/dL (3.5-5.0); Alkaline Phosphatase 52 U/L (38-126); Aspartate Aminotransferase 35 IU/L (17-59); BUN Creatinine Ratio 13.3 (6-22); Bilirubin Total 0.7 mg/dL (0.2-1.3); Blood Urea Nitrogen 8 mg/dL (9-20); Carbon Dioxide 26 mmol/L (22-32); Chloride 107 mmol/L (98-107); Estimated Glomerular Filt Rate > 60.0 mL/min (>60); Globulin 2.8 g/dL (1.7-4.1); Glucose 102 mg/dL (70-100); HEMOLYSIS < 15 (0-50); Potassium 3.1 mmol/L (3.4-5.1); Sodium 140 mmol/L (137-145); Total Protein 5.5 g/dL (6.3-8.2)
[2018-01-07 04:55] LABS: Magnesium 1.5 mg/dL (1.6-2.3)
--- NOTE | 2018-01-07 06:53 | PC.NURSE ---
Patient dozed intermittently throughout night, calm and cooperative when awake, oriented to person, place, and situation, does not use call light and is impulsive when he has urinary urgency, uses urinal with assist. Motor skills and appetite slowly improving, ate 3 puddings with minimal assist. 2mg IV morphine given once for pain all over
[2018-01-07 07:34] VITALS: BP 105/63; PULSE 74; RESP 28; TEMP 37; O2SAT 96
[2018-01-07] MEDS: POTASSIUM CHLORIDE 20 MEQ TAB 40 MEQ PO (07:59)
[2018-01-07] MEDS: PANTOPRAZOLE 40 MG VIAL IV (08:02)
[2018-01-07] MEDS: MAGNESIUM SULFATE 2 GM/50 ML PIGGYBACK IV (08:15)
[2018-01-07 08:17] VITALS: O2SAT 93
--- NOTE | 2018-01-07 09:03 | CM.DPC ---
DCP/continued: Reviewed chart. Received call from RN indicating that patient asking when can I leave. RN reports patient denies needing assistance and wants to leave. NET SOFTWARE ARCHITECT refraining from seeing patient due to potential increased agitation. RN placed call to MD and patient is medically stable. Therefore, NET SOFTWARE ARCHITECT placed call to [facility]/Crisis line . Information provided over the phone and crisis reports that [facility] will be dispatched. Asked RN to print packet with labs, h&p, and NET SOFTWARE ARCHITECT notes for [facility] when they arrive. Notified [facility]/crisis that NET SOFTWARE ARCHITECT available if needed. P: [facility] expected to evaluate today for involuntary placement. KANDI Dickerson
--- NOTE | 2018-01-07 12:11 | ST.IPDYTX ---
Care Team Visit Care Team Role Provider Type Luigi Bains MD Family Provider Physician Primary Care Provider Specialty: Family Practice Address: [address] [place] [address], [id number] Email: [email or web address] Edward Rg DO Emergency Provider Physician Specialty: Emergency Medicine Address: [address] [place] [address], [id number] Email: [email or web address] Allen Daniel MD Admit Provider Physician Attending Provider Specialty: Internal Medicine Address: [address] [place] [address], [id number] Email: TOOL PUSHER Dysphagia Treatment TOOL PUSHER Dysphagia Treatment Start: 01/07/18 11:40 Freq: Status: Active Protocol: Document 01/07/18 11:42 LNK (Rec: 01/07/18 12:09 LNK [id number]) Dysphagia Treatment Session Time Visit Start Time 10:30 Visit Stop Time 11:15 Total Visit Minutes 45 Setting Assessment Location Acute Care Visit Type Note Type Treatment Note Next Note Type Next Note Type Treatment Note Patient Information Identification Type Name ID Wristband Subjective Observations The patient was reclined in bed in his room. His came into the room after a few minutes with birthday cake. The pt was alert and greeted this TOOL PUSHER. He was assisted to his bedside chair by nursing staff. Treatment Liquids Trialed Thin Solids Trialed Dysphagia Mechanical Mechanical Soft Regular Administration Type Self-Feeding Oral Strategies Upright at 90 degrees Pharyngeal Strategies Sitting Upright (90 deg) Treatment Activities Oral peripheral examination: Indicated oral structures WFL. No sign of facial droop left side. Both eyes open. Speech was 100% intelligible with no s/sx of dysarthria. Pt performed all tasks WFL. Dry swallow prompt and with adequate hyolaryngeal elevation and anterior excursion of hyoid bone. Trials of diced fruit, peanutbutter/jelly sandwich, crackers, coffee, water and cake with walnuts, berries and chocolate chips (mixed texture food) Oral phase; WFL, no oral residue, good mastication, bulos formation and control. No oral leakage. Pharyngeal phase: Wet voicing x1 - pt spontaneously cleared throat and wet voicing resolved. Prompt swallow response, good hyolaryngeal elevation, no cough/choke observed. Recommedations include advancing diet to regular texture with thin liquids. General aspiration precautions : sit upright (90 degrees), eat slowly, if voice is wet, clear throat before continuing meal Assessment Patient Response to Treatment Good Rehab Potential Good Assessment of Improvement Pt appears to be more alert relative to reports from yesterday. He was oriented x3 , followed all directions and was overall cooperative and pleasant. However, the pt presented with a flattened affect and appeared to be slower in his processing and responses during conversation that would be expected. He appeared to comprehend all that was said to him and his responses were appropriate; but he seemed to be functioning in slow motion. Observing him trying to throw away a small cracker, he missed the waste basket 4x from a distance of< 1 foot. Initial attempt at cognitive assessment yesterday indicated a relatively low score although the assessment was not completed at the pt's request. Diet Recommendations Recommendations Upgrade Diet Order Liquids Order Thin Diet Order Regular Medication Recommendations As Tolerated Aspiration Precautions Recommended Precautions Upright at 90 Degrees Small Bites/Sips Treatment Plan Appropriate for Continued Therapy Yes Therapy Recommendations Re-eval cognitive assessment to determine pt's current level of cognitiv functioing and to determine appropriate plan of treatment. Outpatient cognitive therapy as indicated. Dysphagia Goals Pt will safely tolerate diet advance to meet nutritional and hydration needs without s/ sx aspiration.
[2018-01-07] MEDS: levoFLOXacin 750 MG/150 ML PIGGYBACK 100 MG IV (12:17)
[2018-01-07 12:21] VITALS: O2SAT 94
--- NOTE | 2018-01-07 13:54 | PC.NURSE ---
Day Shift Note Patient alert and oriented to self and place. Cooperative with care this shift, did ask this AM can I leave but has been agreeable to stay while treatment options explored. Up walking in halls, SBA to assist with equipment (IV pole). Showered independently, using bathroom independently. Speech therapy re-evaled and cleared pt for regular diet. Feeds self without issue. Denies pain. RR in the low 20s, oxygen sats 94% on RA. Currently resting in bed after sitting up in chair for lunch. Does remain impulsive- bed alarm is on.
[2018-01-07] MEDS: ACETAMINOPHEN 325 MG TABLET 650 MG PO (14:37)
--- NOTE | 2018-01-07 14:54 | DI.RAD.S_ITS ---
PROCEDURE: XR CHEST 1V INDICATIONS: follow-up Pnuemonia TECHNIQUE: One view of the chest was acquired. COMPARISON: [facility], CR, XR CHEST 1V, 01/04/2018, 5:25. [facility], CR, XR CHEST 1V, 01/03/2018, 4:41. [facility], CR, XR CHEST 1V, 01/03/2018, 16:46. [facility], CR, XR CHEST 1V, 01/04/2018, 17:00. [facility], CR, XR CHEST 1V, 01/05/2018, 4:58. FINDINGS: Surgical changes and devices: None. Lungs and pleura: There is again seen infiltrate at both lung bases, which is more prominent on the left than on the right. The infiltrates are minimally improved compared to the 01/05/18 examination. On this semiupright portable chest examination, no large pneumothorax or large pleural effusions are seen. Mediastinum: Mediastinal contours appear normal. Heart size is normal. Bones and chest wall: No suspicious bony lesions. Overlying soft tissues appear unremarkable. IMPRESSION: Improving bibasilar infiltrates. Dictated by: Gregory Hawkins M.D. on 01/07/2018 at 14:13 Approved by: Gregory Hawkins M.D. on 01/07/2018 at 14:14
[2018-01-07 15:26] VITALS: BP 116/72; PULSE 97; RESP 18; TEMP 36.6; O2SAT 95
--- NOTE | 2018-01-07 16:33 | PC.NURSE ---
1630- Patient has been accepted to [facility] for inpatient psychiatric care. Patient was hoping to remain at [facility] for one more night. Patient states his Aunt is coming to take him on a road trip to the [facility] and this is how he will treat his suicidal health problem Patient advised that at this point he is involuntarily held and he must transfer to [facility] and then discuss further plans with the mental health professionals in charge of his care. Patient is visably upset but cooperative at this point. is here visiting with their infant child and patients mother is here as well. Coordinator updated to the plan and is arrainging transport. Security is aware of patients hold status. Will monitor closely.
--- NOTE | 2018-01-07 17:11 | PM.DS.1 ---
History of Present Illness Date Patient Seen: 01/07/18 Time Patient Seen: 07:00 Chief complaint: Unresponsive Narrative: This is a 28-year-old male with complex psychiatric and medical problems presenting with altered mental status/encephalopathy secondary to intoxication with alcohol and an intentional overdose with trazodone, resultant acute hypoxic respiratory failure/inability to protect his airways requiring CPR, intubation and initiation of mechanical ventilation in the field. Patient managed in in the ICU, currently extubated , medically stable for discharge. Patient was seen by [facility] and per their recommendations getting transferred to psych unit at [facility] Discharge Providers Date of admission: 01/02/18 14:37 Primary care physician: Luigi Bains MD Consults: 01/02/18 16:57 Consult to Dietitian, Adult Routine Comment: Reason For Exam: Patient on Ventilator and NPO 01/06/18 13:25 Consult to Speech Therapy Evaluate & Treat Comment: Physician Instructions: Evaluate and treat Discharge provider: Martha Shannon MD Summary Discharge Diagnosis: 1. Altered mental status/encephalopathy: Multifactorial, resolved. Secondary to intentional overdose with alcohol and trazodone, with resultant aspiration pneumonia and hypoxemia, need for CPRE in the field, intubation and mechanical ventilation. Patient was extubated on 01/05/2018, currenty doing well on RA. 2. Alcohol intoxication with intentional overdose on Trazodone: Resolved. Continue current symptomatic and supportive care, management as above. 3. Acute hypoxic respiratory failure: Secondary to above, resolving. Chest x-ray with persistent dense retrocardiac consolidation. Initial IV antibiotic therapy with IV vancomycin and Zosyn with changed to PO Levaquin on discharge. 4. Aspiration PNA:as above, resolving. wbc remains normal, sputum is growing MSSA , continue current PO abx as above 5. Hypernatremia: Secondary to dehydration and volume depletion, resolved. 6. Major depression with suicidal ideation: seen by mental health professionals, half-way and transfer to psych unit at [facility] was recommended and currrenty pending. 7. Alcoholism; patient was recently discharged from alcohol rehab with immediate relapse. Currenty with no sighs of DT. Continue PO thiamine supplementation. 8. Protein calorie malnutrition, moderate to severe: Secondary to above. Restarted PO intake and tokerating it well Hospital Course: S this is a 28-year-old female with complex psychiatric problems including but not limited to major depression with suicidal ideation, alcoholism,) his altered mental status/encephalopathy requiring intubation mechanical ventilation in the field secondary to alcohol and started on intoxication, intentional. While in hospital diagnostic with aspiration pneumonia treated with IV vancomycin and Zosyn which was changed to oral Levaquin on discharge upon extubation. Due to the pattern of persistent suicided tabs decision was made to dictate patient for involuntarily treatment at psychiatric unit per image P recommendations. Status at Discharge Cognitive/behavioral status at discharge: With underlying major depression/ongoing suicidal ideation, alcoholism, noncompliance Functional status at discharge: independent ambulation Overall status at discharge: patient is progressing back to baseline Time Spent with Patient Greater than 30 minutes Exam Vital Signs (past 8 hours): - 01/07/18 12:21 01/07/18 15:26 Temperature 97.8 F Pulse Rate 97 H Respiratory Rate 18 Blood Pressure 116/72 Pulse Oximetry 94 95 Fraction of Inspired Oxygen 35 Oxygen Delivery Method Room Air Oxygen Flow Rate 0 Narrative Exam Narrative: Constitutional: Well-nourished well-developed male in NAD. HEENT: Unremarkable exam Neck: No jugular venous distention, no bruits auscultated his carotid arteries. Pulmonary: Clear to auscultation bilaterally, no obvious rales ,crepitations or wheezing Cardiovascular: Patient currently in SR with no discernible murmurs Gastrointestinal : abdomen is soft , nontender, nondistended, there is no discernible organomegaly. Skin: Warm to touch, skin lesions, no rash Extremities: Warm to touch, no edema. Objective Imaging Chest x-ray: Radiologist's impression: Chest x-ray: Radiologist's impression: Chest x-ray: Radiologist's impression: IMPRESSION: 1. Endotracheal tube tip approximately 2.1 cm from the matthew. Consider withdrawal by approximately 2 cm. 2. Persistent patchy left basilar opacities with areas of confluence in the left retrocardiac region suggestive of pneumonia. Labs Result Diagrams: 01/06/18 04:47 01/07/18 04:18 Labs: Laboratory Results - last 24 hr 01/07/18 01/07/18 04:18 04:18 Sodium 140 Potassium 3.1 L Chloride 107 Carbon Dioxide 26 BUN 8 L Creatinine 0.60 L Estimated GFR > 60.0 BUN/Creatinine Ratio 13.3 Glucose 102 H Calcium 8.0 L Magnesium 1.5 L Total Bilirubin 0.7 AST 35 ALT 33 Alkaline Phosphatase 52 Total Protein 5.5 L Albumin 2.7 L Globulin 2.8 Albumin/Globulin Ratio 1.0 Discharge Plan Discharge Plan Patient Disposition: Xfer Psychiatric Hosp Other facility: [facility], psychiatric unit Transportation: Ambulance Discharge Med Rec/Prescriptions Discharge Orders: Discharge (Order); Ordered 01/07/18 Ordered By: Martha Shannon Discharge Health Status Brief summary of current health status: This is a 28-year-old male with complex psychiatric and medical problems presenting with altered mental status/encephalopathy secondary to intoxication with alcohol and an intentional overdose with trazodone, resultant acute hypoxic respiratory failure/inability to protect his airways requiring CPR, intubation and initiation of mechanical ventilation in the field. Currently extubated and medically stable for discharge to psych unit on unvoluntary basis Provider Discharge Instructions Diet: Regular Liquid consistency: Normal/Thin Activity: as tolerated Discharge Data Primary Care Provider: Luigi Bains Attending Provider: Allen Daniel Admit Date/Time: 01/02/18 14:37 Quality VTE Deep Vein Thrombosis/Pulmonary Embolism Present on Admission: No
--- NOTE | 2018-01-07 17:24 | P.DS_ITS ---
History of Present Illness Date Patient Seen: 01/07/18 Time Patient Seen: 07:00 Chief complaint: Unresponsive Narrative: This is a 28-year-old male with complex psychiatric and medical problems presenting with altered mental status/encephalopathy secondary to intoxication with alcohol and an intentional overdose with trazodone, resultant acute hypoxic respiratory failure/inability to protect his airways requiring CPR, intubation and initiation of mechanical ventilation in the field. Patient managed in in the ICU, currently extubated , medically stable for discharge. Patient was seen by [facility] and per their recommendations getting transferred to psych unit at [facility] Discharge Providers Date of admission: 01/02/18 14:37 Primary care physician: Luigi Bains MD Consults: 01/02/18 16:57 Consult to Dietitian, Adult Routine Comment: Reason For Exam: Patient on Ventilator and NPO 01/06/18 13:25 Consult to Speech Therapy Evaluate & Treat Comment: Physician Instructions: Evaluate and treat Discharge provider: Martha Shannon MD Summary Discharge Diagnosis: 1. Altered mental status/encephalopathy: Multifactorial, resolved. Secondary to intentional overdose with alcohol and trazodone, with resultant aspiration pneumonia and hypoxemia, need for CPRE in the field, intubation and mechanical ventilation. Patient was extubated on 01/05/2018, currenty doing well on RA. 2. Alcohol intoxication with intentional overdose on Trazodone: Resolved. Continue current symptomatic and supportive care, management as above. 3. Acute hypoxic respiratory failure: Secondary to above, resolving. Chest x- ray with persistent dense retrocardiac consolidation. Initial IV antibiotic therapy with IV vancomycin and Zosyn with changed to PO Levaquin on discharge. 4. Aspiration PNA:as above, resolving. wbc remains normal, sputum is growing MSSA , continue current PO abx as above 5. Hypernatremia: Secondary to dehydration and volume depletion, resolved. 6. Major depression with suicidal ideation: seen by mental health professionals, [facility] and transfer to psych unit at [facility] was recommended and currrenty pending. 7. Alcoholism; patient was recently discharged from alcohol rehab with immediate relapse. Currenty with no sighs of DT. Continue PO thiamine supplementation. 8. Protein calorie malnutrition, moderate to severe: Secondary to above. Restarted PO intake and tokerating it well Hospital Course: S this is a 28-year-old female with complex psychiatric problems including but not limited to major depression with suicidal ideation, alcoholism,) his altered mental status/encephalopathy requiring intubation mechanical ventilation in the field secondary to alcohol and started on intoxication, intentional. While in hospital diagnostic with aspiration pneumonia treated with IV vancomycin and Zosyn which was changed to oral Levaquin on discharge upon extubation. Due to the pattern of persistent suicided tabs decision was made to dictate patient for involuntarily treatment at psychiatric unit per image P recommendations. Status at Discharge Cognitive/behavioral status at discharge: With underlying major depression/ ongoing suicidal ideation, alcoholism, noncompliance Functional status at discharge: independent ambulation Overall status at discharge: patient is progressing back to baseline Time Spent with Patient Greater than 30 minutes Exam Vital Signs (past 8 hours): - 01/07/18 12:21 01/07/18 15:26 Temperature 97.8 F Pulse Rate 97 H Respiratory Rate 18 Blood Pressure 116/72 Pulse Oximetry 94 95 Fraction of Inspired Oxygen 35 Oxygen Delivery Method Room Air Oxygen Flow Rate 0 Narrative Exam Narrative: Constitutional: Well-nourished well-developed male in NAD. HEENT: Unremarkable exam Neck: No jugular venous distention, no bruits auscultated his carotid arteries. Pulmonary: Clear to auscultation bilaterally, no obvious rales ,crepitations or wheezing Cardiovascular: Patient currently in SR with no discernible murmurs Gastrointestinal : abdomen is soft , nontender, nondistended, there is no discernible organomegaly. Skin: Warm to touch, skin lesions, no rash Extremities: Warm to touch, no edema. Objective Imaging Chest x-ray: Radiologist's impression: Chest x-ray: Radiologist's impression: Chest x-ray: Radiologist's impression: IMPRESSION: 1. Endotracheal tube tip approximately 2.1 cm from the mattehw. Consider withdrawal by approximately 2 cm. 2. Persistent patchy left basilar opacities with areas of confluence in the left retrocardiac region suggestive of pneumonia. Labs Result Diagrams: 01/06/18 04:47 01/07/18 04:18 Labs: Laboratory Results - last 24 hr 01/07/18 01/07/18 04:18 04:18 Sodium 140 Potassium 3.1 L Chloride 107 Carbon Dioxide 26 BUN 8 L Creatinine 0.60 L Estimated GFR > 60.0 BUN/Creatinine Ratio 13.3 Glucose 102 H Calcium 8.0 L Magnesium 1.5 L Total Bilirubin 0.7 AST 35 ALT 33 Alkaline Phosphatase 52 Total Protein 5.5 L Albumin 2.7 L Globulin 2.8 Albumin/Globulin Ratio 1.0 Discharge Plan Discharge Plan Patient Disposition: Xfer Psychiatric Hosp Other facility: [facility], psychiatric unit Transportation: Ambulance Discharge Med Rec/Prescriptions Discharge Orders: Discharge (Order); Ordered 01/07/18 Ordered By: Martha Shannon Discharge Health Status Brief summary of current health status: This is a 28-year-old male with complex psychiatric and medical problems presenting with altered mental status/ encephalopathy secondary to intoxication with alcohol and an intentional overdose with trazodone, resultant acute hypoxic respiratory failure/inability to protect his airways requiring CPR, intubation and initiation of mechanical ventilation in the field. Currently extubated and medically stable for discharge to psych unit on unvoluntary basis Provider Discharge Instructions Diet: Regular Liquid consistency: Normal/Thin Activity: as tolerated Discharge Data Primary Care Provider: Luigi Bains Attending Provider: Allen Daniel Admit Date/Time: 01/02/18 14:37 Quality VTE Deep Vein Thrombosis/Pulmonary Embolism Present on Admission: No
--- NOTE | 2018-01-07 18:24 | PC.NURSE ---
1820- EMS here to transport patient. Patient dressed and ready to go to [facility]. Patient IV dc'd. Patient assisted to the stretcher and restraints applied without any problems. Patient stable at the time of discharge.
== END 2018-01-07 18:23 | DRG 812 ==
LOC: ED 14:30 → ICU 15:17
PROVIDERS: Hospitalist; Internal Medicine; Admitting Provider Internal Medicine; Emergency Provider Emergency Medicine; Family Provider Family Medicine; PCP Family Medicine; Visit Provider Internal Medicine
DX: T43.212A Poisoning by selective serotonin and norepinephrine reuptake inhibitors, intentional self-harm, initial encounter (principal); G93.41 Metabolic encephalopathy; F10.220 Alcohol dependence with intoxication, uncomplicated; E43 Unspecified severe protein-calorie malnutrition; Y92.009 Unspecified place in unspecified non-institutional (private) residence as the place of occurrence of the external cause; Y90.8 Blood alcohol level of 240 mg/100 ml or more; G92 Toxic encephalopathy; E87.0 Hyperosmolality and hypernatremia; J96.01 Acute respiratory failure with hypoxia; J69.0 Pneumonitis due to inhalation of food and vomit; R40.2342 Coma scale, best motor response, flexion withdrawal, at arrival to emergency department; R40.2112 Coma scale, eyes open, never, at arrival to emergency department; R40.2212 Coma scale, best verbal response, none, at arrival to emergency department; Z68.21 Body mass index [BMI] 21.0-21.9, adult; F32.9 Major depressive disorder, single episode, unspecified; F50.9 Eating disorder, unspecified; G40.909 Epilepsy, unspecified, not intractable, without status epilepticus
CPT/HCPCS: 36415; 36600; 51701; 71045; 80053; 80076; 80202; 80305; 80320; 80329; 82805; 82962; 83605; 83735; 85025; 85379; 87070; 87077; 87147; 87186; 87205; 87797; 92526; 92610; 93005; 93010; 94003; 94640; 94667; 94770; 94799; 96361; 96374; 96375; 99285; C9113; G0480; J1630; J1650; J1956; J2060; J2270; J2543; J2704; J3010; J3475; J3480; J7613

== ENCOUNTER 2018-02-08 15:57 | Emergency (ER) | payer OTHER, MEDICAID, SELFPAY ==
[2018-01-02 16:22] VITALS: BMI 21.3
[2018-01-05 12:30] VITALS: PULSE 95; RESP 15; O2SAT 100
[2018-02-08] VITALS (12 sets, daily range): BP systolic 99–123; BP diastolic 47–76; PULSE 56–94; RESP 14–24; TEMP 36.9; O2SAT 93–100
[2018-02-08 16:41] LABS: Add Manual Diff / Slide Review NO; Basophils Percent Auto 0.6 % (0-2); Eosinophils Percent Auto 0.1 % (2-4); Hematocrit 36.1 % (41-53); Hemoglobin 12.7 g/dL (13.5-17.5); Lymphocytes Percent Auto 35.1 % (25-40); Mean Corpuscular Hemoglobin 32.7 PG (26-34); Mean Corpuscular Volume 93.3 fL (80-100); Monocytes Percent Auto 8.7 % (3-14); Neutrophils Absolute Auto 2300 /uL (3000-5900); Neutrophils Percent Auto 55.5 % (50-75); Platelet Count 103 X10^3/uL (150-400); Red Blood Cell Count 3.87 X10^6/uL (4.5-5.9); Red Cell Distribution Width 14.2 % (11.6-14.8); White Blood Cell Count 4.1 X10^3/uL (4.5-11.0)
[2018-02-08] MEDS: SODIUM CHLORIDE 0.9% 1,000 ML 1000 ML IV (16:48)
[2018-02-08 17:05] LABS: Acetaminophen < 10 ug/mL (10-30); Alanine Aminotransferase 33 IU/L (21-72); Albumin 3.9 g/dL (3.5-5.0); Albumin Globulin Ratio 1.4 (1.0-2.8); Alkaline Phosphatase 42 U/L (38-126); Aspartate Aminotransferase 39 IU/L (17-59); BUN Creatinine Ratio 17.1 (6-22); Bilirubin Total 0.5 mg/dL (0.2-1.3); Bilirubin Unconjugated 0.3 mg/dL (0.0-1.1); Blood Urea Nitrogen 12 mg/dL (9-20); Calcium 8.5 mg/dL (8.4-10.2); Carbon Dioxide 28 mmol/L (22-32); Chloride 108 mmol/L (98-107); Estimated Glomerular Filt Rate > 60.0 mL/min (>60); Globulin 2.8 g/dL (1.7-4.1); Glucose 88 mg/dL (70-100); HEMOLYSIS < 15 (0-50); Lipase 180 U/L (23-300); Magnesium 1.6 mg/dL (1.6-2.3); Potassium 3.4 mmol/L (3.4-5.1); Salicylate < 1.0 mg/dL (<20); Sodium 150 mmol/L (137-145); Total Protein 6.7 g/dL (6.3-8.2)
[2018-02-08 17:13] LABS: Ethanol (ETOH) 345 mg/dL
[2018-02-08 17:59] LABS: Urine Amphetamines Negative (Negative); Urine Barbiturates Negative (Negative); Urine Benzodiazepines Negative (Negative); Urine Cocaine Negative (Negative); Urine MDMA Negative (Negative); Urine Methadone Negative (Negative); Urine Methamphetamines Negative (Negative); Urine Morphine/Opi cutoff 2000 Negative (Negative); Urine Oxycodone Negative (Negative); Urine Phencyclidine Negative (Negative); Urine Tetrahydrocannabinol Positive (Negative); Urine Tricyclic Antidepressant Negative (Negative)
--- NOTE | 2018-02-08 19:26 | PC.NURSE ---
Called DCR for placement of treatment. Pt has been cleared to see DCR. DCR being paged at this time.
--- NOTE | 2018-02-08 20:40 | ED_ITS ---
HPI - Altered Mental Status <Edward Rg DO - Last Filed: 02/11/18 05:57> General Chief Complaint: Altered Mental Status Stated Complaint: ETOH Time Seen by Provider: 02/08/18 15:57 Source: patient, family and EMS Mode of arrival: EMS Limitations: altered mental status History of Present Illness HPI narrative: 28-year-old male with extensive history of alcohol abuse and psychiatric illness presents to the emergency department after consuming a significant amount of alcohol. The patient has presented to our emergency department multiple times after being intubated due to alcohol plus or minus other substances. He has made suicide attempts due to these substances. He has been admitted against his will under Rashad's law in the past. Patient denies consuming any alcohol in the past 8 days but states she took 2/5 of alcohol from this morning in into the mouth and later found him outside of her os near a dumpster with an empty bottle. The patient denies any suicidal or homicidal ideations. MD complaint: altered mental status and intoxication Onset (ago): minute(s) Timing confirmed by: spouse Severity: moderate Consistency of symptoms: constant Context: alcohol abuse, drug abuse and history of similar presentation Associated symptoms: denies other symptoms Related Data Home Medications Medication Instructions Recorded Confirmed nicotine (polacrilex) 1 ea PO DIRECTED 01/02/18 01/02/18 Previous Rx's Medication Instructions Recorded acetaminophen 650 mg PO Q6HR PRN #30 tab 01/07/18 levofloxacin 750 mg PO DAILY #10 tab 01/07/18 thiamine HCl (vitamin B1) 100 mg PO DAILY #30 tab 01/07/18 Allergies Allergy/AdvReac Type Severity Reaction Status Date / Time shrimp [SHRIMP] Allergy Severe THROAT Verified 11/10/17 13:32 SWELLING/HIVES diazepam [From VALIUM] Allergy Intermediate LEG Verified 11/10/17 13:32 SWELLING haloperidol [From HALDOL] Allergy Unknown DYSTONIA Verified 11/10/17 13:32 naproxen [NAPROXEN] AdvReac Mild NAUSEA/GI Verified 11/10/17 13:32 DISTRESS Review of Systems <Edward Rg DO - Last Filed: 02/11/18 05:57> Review of Systems All systems reviewed & are unremarkable except as noted in HPI and below Constitutional Denies chills, Denies fever(s), Denies lethargy and Denies weakness Eyes Denies change in vision, Denies eye discharge, Denies irritation and Denies loss of vision ENT Ears, Nose, Mouth, and Throat: Denies change in voice, Denies neck pain and Denies sore throat Cardiovascular Denies chest pain, Denies irregular heart rhythm, Denies lightheadedness, Denies palpitations, Denies dyspnea, Denies dyspnea on exertion and Denies orthopnea Respiratory Denies cough, Denies dyspnea, Denies dyspnea on exertion and Denies wheezing Gastrointestinal Gastrointestinal: Denies abdominal pain, Denies change in bowel habits, Denies diarrhea, Denies nausea and Denies vomiting Genitourinary Denies hematuria, Denies flank pain, Denies urinary incontinence and Denies urinary urgency Musculoskeletal Denies neck pain Integumentary/Breasts Denies pruritus, Denies erythema, Denies rash and Denies wounds Neurologic Denies confusion, Denies loss of vision and Denies weakness Psychiatric Denies anxiety, Denies confusion, Denies depression, Denies homicidal ideation and Denies suicidal ideation Endocrine Denies palpitations Hematologic/Lymphatic Denies easy bruising Allergic/Immunologic Denies wheezing Exam <Edward Rg, DO - Last Filed: 02/11/18 05:57> Narrative Exam Narrative: GENERAL: 28-year-old male is slurring his words and not terribly cooperative in our discussion. He smells of alcohol HEAD: Atraumatic. Normocephalic. No temporal or scalp tenderness. EYES: Pupils equal round and reactive. Extraocular motions intact. No scleral icterus. No injection or drainage. ENT: Nose without bleeding, purulent drainage or septal hematoma. Throat without erythema, tonsillar hypertrophy or exudate. Uvula midline. Airway patent. NECK: Trachea midline. No JVD or lymphadenopathy. Supple, nontender, no meningeal signs. CARDIOVASCULAR: Regular rate and rhythm without murmurs, gallops, or rubs. RESPIRATORY: Clear to auscultation. Breath sounds equal bilaterally. No wheezes , rales, or rhonchi. GASTROINTESTINAL: Abdomen soft, non-tender, nondistended. No hepato-splenomegaly , or palpable masses. No guarding. EXTREMITIES: No clubbing, cyanosis, or edema. No joint tenderness, effusion, or edema noted. BACK: Nontender without deformity or crepitance. No flank tenderness. NEURO: Patient is is somnolent but easily arousable SKIN: No rash or erythema. Initial Vital Signs Initial Vital Signs: Vital Signs Temperature 98.5 F 02/08/18 15:57 Pulse Rate 94 H 02/08/18 15:57 Respiratory Rate 24 02/08/18 15:57 Blood Pressure 118/67 02/08/18 15:57 Pulse Oximetry 97 02/08/18 15:57 <Katiana Hopkins, DO - Last Filed: 02/09/18 21:02> Initial Vital Signs Initial Vital Signs: Vital Signs Temperature 98.5 F 02/08/18 15:57 Pulse Rate 94 H 02/08/18 15:57 Respiratory Rate 24 02/08/18 15:57 Blood Pressure 118/67 02/08/18 15:57 Pulse Oximetry 97 02/08/18 15:57 12:30 a.m. GENERAL: Awake alert smelled of alcohol HEENT: Head atraumatic,EOMI, pupils reactive CARDIOVASCULAR: Peripheral pulses intact RESPIRATORY: Speaking clearly EXTREMITIES: Normal range of motion, no clubbing or edema. Neurovascularly intact NEUROLOGICAL: Alert and oriented x3, unsteady gait mild slurring of speech SKIN: Warm, dry, no laceration, no petechiae, no rashes or lesions. <Valentina Gandhi, DO - Last Filed: 02/09/18 19:33> Initial Vital Signs Initial Vital Signs: Vital Signs Temperature 98.5 F 02/08/18 15:57 Pulse Rate 94 H 02/08/18 15:57 Respiratory Rate 24 02/08/18 15:57 Blood Pressure 118/67 02/08/18 15:57 Pulse Oximetry 97 02/08/18 15:57 Course <Edward Rg, DO - Last Filed: 02/11/18 05:57> Orders Ordered: Discontinued Medications Diphenhydramine HCl (Benadryl) 50 mg IM NOW ONE Stop: 02/09/18 08:54 Last Admin: 02/09/18 08:57 Dose: 50 mg Haloperidol (Haldol) 10 mg IM NOW ONE Stop: 02/09/18 08:55 Last Admin: 02/09/18 08:56 Dose: 10 mg Sodium Chloride (Normal Saline 0.9%) 1,000 mls @ 1,000 mls/hr IV BOLUS ONE Stop: 02/08/18 16:56 Last Infusion: 02/08/18 18:19 Dose: 0 mls/hr Admin: 02/08/18 16:48 Dose: 1,000 mls/hr Dextrose (Dextrose 5% Water) 1,000 mls @ 100 mls/hr IV CONT HOLGER Last Infusion: 02/09/18 07:39 Dose: 0 mls/hr Infusion: 02/09/18 07:07 Dose: 0 mls/hr Admin: 02/09/18 02:26 Dose: 100 mls/hr Lorazepam (Ativan) 2 mg IV NOW ONE Stop: 02/08/18 23:31 Last Admin: 02/08/18 23:28 Dose: 2 mg Lorazepam (Ativan) 2 mg PO NOW ONE Stop: 02/09/18 08:41 Lorazepam (Ativan) 2 mg IM NOW ONE Stop: 02/09/18 08:53 Last Admin: 02/09/18 08:58 Dose: 2 mg Reevaluation(s) Reevaluation #1: Patient is more alert. He continues to deny any suicidal or homicidal ideation. He continues to deny drinking alcohol. This patient is a significant risk to himself given his substance abuse. Without intervention he will likely as a consequence of alcohol and polysubstance abuse. It is my recommendation that the patient be evaluated by the [facility] for implementation of Rashad's law and hospitalization for his substance abuse Vital Signs - 8 hr 02/09/18 03:10 02/09/18 04:37 02/09/18 05:13 Pulse Rate 73 58 L 65 Respiratory Rate 22 22 22 Blood Pressure [Right Arm] 109/51 L 100/55 L 102/60 Pulse Oximetry 96 97 98 02/09/18 05:45 Pulse Rate 64 Respiratory Rate 22 Blood Pressure [Right Arm] 104/57 L Pulse Oximetry 100 <Katiana Hopkins DO - Last Filed: 02/09/18 21:02> Orders Ordered: Discontinued Medications Diphenhydramine HCl (Benadryl) 50 mg IM NOW ONE Stop: 02/09/18 08:54 Last Admin: 02/09/18 08:57 Dose: 50 mg Haloperidol (Haldol) 10 mg IM NOW ONE Stop: 02/09/18 08:55 Last Admin: 02/09/18 08:56 Dose: 10 mg Sodium Chloride (Normal Saline 0.9%) 1,000 mls @ 1,000 mls/hr IV BOLUS ONE Stop: 02/08/18 16:56 Last Infusion: 02/08/18 18:19 Dose: 0 mls/hr Admin: 02/08/18 16:48 Dose: 1,000 mls/hr Dextrose (Dextrose 5% Water) 1,000 mls @ 100 mls/hr IV CONT HOLGER Last Infusion: 02/09/18 07:39 Dose: 0 mls/hr Infusion: 02/09/18 07:07 Dose: 0 mls/hr Admin: 02/09/18 02:26 Dose: 100 mls/hr Lorazepam (Ativan) 2 mg IV NOW ONE Stop: 02/08/18 23:31 Last Admin: 02/08/18 23:28 Dose: 2 mg Lorazepam (Ativan) 2 mg PO NOW ONE Stop: 02/09/18 08:41 Lorazepam (Ativan) 2 mg IM NOW ONE Stop: 02/09/18 08:53 Last Admin: 02/09/18 08:58 Dose: 2 mg Reevaluation(s) Reevaluation #1: Patient signed out to me by Dr. Rg at shift change. Patient currently being detained and evaluated is for Rashad riley. He has been cooperative. 11:30 p.m. Patient beginning to get more agitated. He has been informed by myself and DM that he is involuntary in will be detained and going to she he this. He does not want to go he does not think that is necessary. He has been in red his rights and informed that if he tries to we have of police will be called and further aggressive measures would be taken. Currently trying to find a sitter no right available until his tomorrow morning. He is given a mg of Ativan IV and is requesting that his IV come out. 12:05 a.m The patient has eloped. [facility] is still here and aware of the situation. police have been called and notified. Video surveillance reveals that he walked up the back door at 11:59 p.m.. 12:30 a.m. pop police have returned patient. He smells of alcohol he has a some eye unsteady gait. Spoken with his he is now placed in seclusion is clearly a high flight risk Patient admits he drank a whole bottle of ever clear. A based on previous history he will need closer monitoring he has moved to trauma 1 IV is placed blood is recheck to and he is monitored. Sitter is now here with him. 6:00 a.m. patient is awake: Pulling All lines all asking where his clothes are. He is moved back to room 13. He is wanting to leave and trying to come out the door. The door is closed. His still remains a high flight risk. Vital Signs - 8 hr 02/09/18 03:10 02/09/18 04:37 02/09/18 05:13 Pulse Rate 73 58 L 65 Respiratory Rate 22 22 22 Blood Pressure [Right Arm] 109/51 L 100/55 L 102/60 Pulse Oximetry 96 97 98 02/09/18 05:45 Pulse Rate 64 Respiratory Rate 22 Blood Pressure [Right Arm] 104/57 L Pulse Oximetry 100 Mental Status Exam Patient Appearance: Well Groomed Level of Consciousness: Alert, Appropriate and Drowsy Mood Description: Anxious Ability to Follow Directions: Poor Physical Status Respirations: Normal respiratory rate Cardiac: Regular Rate Circulation: Moves all extremities Assessment of Situation Restraint risks explained to patient: Yes Restraint risks explained to family: Yes Comments Additional Comments: Patient was previously instructed that he has involuntary and should be cooperative. He is clearly a flight risk he was brought back in by police. He does appear to be more intoxicated. <Valentina Gandhi, - Last Filed: 02/09/18 19:33> Orders Ordered: Discontinued Medications Diphenhydramine HCl (Benadryl) 50 mg IM NOW ONE Stop: 02/09/18 08:54 Last Admin: 02/09/18 08:57 Dose: 50 mg Haloperidol (Haldol) 10 mg IM NOW ONE Stop: 02/09/18 08:55 Last Admin: 02/09/18 08:56 Dose: 10 mg Sodium Chloride (Normal Saline 0.9%) 1,000 mls @ 1,000 mls/hr IV BOLUS ONE Stop: 02/08/18 16:56 Last Infusion: 02/08/18 18:19 Dose: 0 mls/hr Admin: 02/08/18 16:48 Dose: 1,000 mls/hr Dextrose (Dextrose 5% Water) 1,000 mls @ 100 mls/hr IV CONT HOLGER Last Infusion: 02/09/18 07:39 Dose: 0 mls/hr Infusion: 02/09/18 07:07 Dose: 0 mls/hr Admin: 02/09/18 02:26 Dose: 100 mls/hr Lorazepam (Ativan) 2 mg IV NOW ONE Stop: 02/08/18 23:31 Last Admin: 02/08/18 23:28 Dose: 2 mg Lorazepam (Ativan) 2 mg PO NOW ONE Stop: 02/09/18 08:41 Lorazepam (Ativan) 2 mg IM NOW ONE Stop: 02/09/18 08:53 Last Admin: 02/09/18 08:58 Dose: 2 mg Reevaluation(s) Reevaluation #1: Patient had I have interacted several times since I took care at 7am. Patient has been attempting to leave but not aggressive. EMS arrived for transport for involuntary hospitalization at [place]. Patient became resistant and aggressive and requiring physical restraint. For patient and EMS safety patient given IM medications including Haldol, ativan and benadryl. PD also called to assist with patient. Patient placed on EMS gurney and restrained with soft 4 point. Patient alert and talking with myself and PD prior to departure. Vital Signs - 8 hr 02/09/18 03:10 02/09/18 04:37 02/09/18 05:13 Pulse Rate 73 58 L 65 Respiratory Rate 22 22 22 Blood Pressure [Right Arm] 109/51 L 100/55 L 102/60 Pulse Oximetry 96 97 98 02/09/18 05:45 Pulse Rate 64 Respiratory Rate 22 Blood Pressure [Right Arm] 104/57 L Pulse Oximetry 100 MDM - Altered Mental Status <Edward Rg DO - Last Filed: 02/11/18 05:57> Lab Data Result diagrams: 02/08/18 16:30 02/09/18 05:54 Lab Results 02/08/18 02/08/18 02/08/18 Range/Units 16:30 16:30 17:34 WBC 4.1 L (4.5-11.0) X10^3/uL RBC 3.87 L (4.5-5.9) X10^6/uL Hgb 12.7 L (13.5-17.5) g/dL Hct 36.1 L (41-53) % MCV 93.3 (80-100) fL MCH 32.7 (26-34) PG MCHC 35.0 (30-36) % RDW 14.2 (11.6-14.8) % Plt Count 103 L (150-400) X10^3/uL Neut % (Auto) 55.5 (50-75) % Lymph % (Auto) 35.1 (25-40) % Placer % (Auto) 8.7 (3-14) % Eos % (Auto) 0.1 L (2-4) % Baso % (Auto) 0.6 (0-2) % Neut # (Auto) 2300 L (4974-4310) /uL Sodium 150 H (137-145) mmol/L Potassium 3.4 (3.4-5.1) mmol/L Chloride 108 H (98-107) mmol/L Carbon Dioxide 28 (22-32) mmol/L BUN 12 (9-20) mg/dL Creatinine 0.70 (0.66-1.25) mg/dL Estimated GFR > 60.0 (>60) mL/min BUN/Creatinine Ratio 17.1 (6-22) Glucose 88 (70-100) mg/dL Calcium 8.5 (8.4-10.2) mg/dL Magnesium 1.6 (1.6-2.3) mg/dL Total Bilirubin 0.5 (0.2-1.3) mg/dL Conjugated Bilirubin 0.0 (0.0-0.3) md/dL Unconjugated Bilirubin 0.3 (0.0-1.1) mg/dL AST 39 (17-59) IU/L ALT 33 (21-72) IU/L Alkaline Phosphatase 42 (38-126) U/L Total Protein 6.7 (6.3-8.2) g/dL Albumin 3.9 (3.5-5.0) g/dL Globulin 2.8 (1.7-4.1) g/dL Albumin/Globulin Ratio 1.4 (1.0-2.8) Lipase 180 (23-300) U/L Salicylates < 1.0 (<20) mg/dL Urine Opiates Screen Negative (Negative) Ur Oxycodone Screen Negative (Negative) Urine Methadone Screen Negative (Negative) Acetaminophen < 10 L (10-30) ug/mL Ur Barbiturates Screen Negative (Negative) U Tricyclic Antidepress Negative (Negative) Ur Phencyclidine Scrn Negative (Negative) Ur Amphetamines Screen Negative (Negative) U Methamphetamines Scrn Negative (Negative) Ur MDMA Scrn (Ecstasy) Negative (Negative) U Benzodiazepines Scrn Negative (Negative) Urine Cocaine Screen Negative (Negative) U Marijuana (THC) Screen Positive H (Negative) Ethyl Alcohol 345 mg/dL 02/09/18 02/09/18 Range/Units 00:58 05:54 WBC (4.5-11.0) X10^3/uL RBC (4.5-5.9) X10^6/uL Hgb (13.5-17.5) g/dL Hct (41-53) % MCV (80-100) fL MCH (26-34) PG MCHC (30-36) % RDW (11.6-14.8) % Plt Count (150-400) X10^3/uL Neut % (Auto) (50-75) % Lymph % (Auto) (25-40) % Placer % (Auto) (3-14) % Eos % (Auto) (2-4) % Baso % (Auto) (0-2) % Neut # (Auto) (0515-5504) /uL Sodium 153 H 151 H (137-145) mmol/L Potassium 3.6 3.4 (3.4-5.1) mmol/L Chloride 109 H 111 H (98-107) mmol/L Carbon Dioxide 22 28 (22-32) mmol/L BUN 11 (9-20) mg/dL Creatinine 0.70 (0.66-1.25) mg/dL Estimated GFR > 60.0 (>60) mL/min BUN/Creatinine Ratio 15.7 (6-22) Glucose 82 (70-100) mg/dL Calcium 8.5 (8.4-10.2) mg/dL Magnesium (1.6-2.3) mg/dL Total Bilirubin 0.5 (0.2-1.3) mg/dL Conjugated Bilirubin (0.0-0.3) md/dL Unconjugated Bilirubin (0.0-1.1) mg/dL AST 60 H (17-59) IU/L ALT 43 (21-72) IU/L Alkaline Phosphatase 45 (38-126) U/L Total Protein 7.0 (6.3-8.2) g/dL Albumin 4.2 (3.5-5.0) g/dL Globulin 2.8 (1.7-4.1) g/dL Albumin/Globulin Ratio 1.5 (1.0-2.8) Lipase (23-300) U/L Salicylates (<20) mg/dL Urine Opiates Screen (Negative) Ur Oxycodone Screen (Negative) Urine Methadone Screen (Negative) Acetaminophen (10-30) ug/mL Ur Barbiturates Screen (Negative) U Tricyclic Antidepress (Negative) Ur Phencyclidine Scrn (Negative) Ur Amphetamines Screen (Negative) U Methamphetamines Scrn (Negative) Ur MDMA Scrn (Ecstasy) (Negative) U Benzodiazepines Scrn (Negative) Urine Cocaine Screen (Negative) U Marijuana (THC) Screen (Negative) Ethyl Alcohol 385 281 mg/dL Point of Care Testing Breathalizer 206 Glucose POC 81 Urine Dip Bedside Urine Glucose Negative Bedside Urine Bilirubin - Negative Bedside Urine Ketone - Negative Urine Specific [place] 1.010 Bedside Urine Occult Blood - Negative Bedside Urine pH 8.0 Bedside Urine Protein - Negative Bedside Urine Urobilinogen - Negative Bedside Urine Nitrite - Negative Bedside Urine Leukocytes - Negative Esterase <Katiana Hopkins, DO - Last Filed: 02/09/18 21:02> Lab Data Attestation: I reviewed the patient's lab results. Lab Results 02/08/18 02/08/18 02/08/18 Range/Units 16:30 16:30 17:34 WBC 4.1 L (4.5-11.0) X10^3/uL RBC 3.87 L (4.5-5.9) X10^6/uL Hgb 12.7 L (13.5-17.5) g/dL Hct 36.1 L (41-53) % MCV 93.3 (80-100) fL MCH 32.7 (26-34) PG MCHC 35.0 (30-36) % RDW 14.2 (11.6-14.8) % Plt Count 103 L (150-400) X10^3/uL Neut % (Auto) 55.5 (50-75) % Lymph % (Auto) 35.1 (25-40) % Placer % (Auto) 8.7 (3-14) % Eos % (Auto) 0.1 L (2-4) % Baso % (Auto) 0.6 (0-2) % Neut # (Auto) 2300 L (0726-5480) /uL Sodium 150 H (137-145) mmol/L Potassium 3.4 (3.4-5.1) mmol/L Chloride 108 H (98-107) mmol/L Carbon Dioxide 28 (22-32) mmol/L BUN 12 (9-20) mg/dL Creatinine 0.70 (0.66-1.25) mg/dL Estimated GFR > 60.0 (>60) mL/min BUN/Creatinine Ratio 17.1 (6-22) Glucose 88 (70-100) mg/dL Calcium 8.5 (8.4-10.2) mg/dL Magnesium 1.6 (1.6-2.3) mg/dL Total Bilirubin 0.5 (0.2-1.3) mg/dL Conjugated Bilirubin 0.0 (0.0-0.3) md/dL Unconjugated Bilirubin 0.3 (0.0-1.1) mg/dL AST 39 (17-59) IU/L ALT 33 (21-72) IU/L Alkaline Phosphatase 42 (38-126) U/L Total Protein 6.7 (6.3-8.2) g/dL Albumin 3.9 (3.5-5.0) g/dL Globulin 2.8 (1.7-4.1) g/dL Albumin/Globulin Ratio 1.4 (1.0-2.8) Lipase 180 (23-300) U/L Salicylates < 1.0 (<20) mg/dL Urine Opiates Screen Negative (Negative) Ur Oxycodone Screen Negative (Negative) Urine Methadone Screen Negative (Negative) Acetaminophen < 10 L (10-30) ug/mL Ur Barbiturates Screen Negative (Negative) U Tricyclic Antidepress Negative (Negative) Ur Phencyclidine Scrn Negative (Negative) Ur Amphetamines Screen Negative (Negative) U Methamphetamines Scrn Negative (Negative) Ur MDMA Scrn (Ecstasy) Negative (Negative) U Benzodiazepines Scrn Negative (Negative) Urine Cocaine Screen Negative (Negative) U Marijuana (THC) Screen Positive H (Negative) Ethyl Alcohol 345 mg/dL 09/23/18 09/23/18 Range/Units 00:58 05:54 WBC (4.5-11.0) X10^3/uL RBC (4.5-5.9) X10^6/uL Hgb (13.5-17.5) g/dL Hct (41-53) % MCV (80-100) fL MCH (26-34) PG MCHC (30-36) % RDW (11.6-14.8) % Plt Count (150-400) X10^3/uL Neut % (Auto) (50-75) % Lymph % (Auto) (25-40) % [place] % (Auto) (3-14) % Eos % (Auto) (2-4) % Baso % (Auto) (0-2) % Neut # (Auto) (7485-8196) /uL Sodium 153 H 151 H (137-145) mmol/L Potassium 3.6 3.4 (3.4-5.1) mmol/L Chloride 109 H 111 H (98-107) mmol/L Carbon Dioxide 22 28 (22-32) mmol/L BUN 11 (9-20) mg/dL Creatinine 0.70 (0.66-1.25) mg/dL Estimated GFR > 60.0 (>60) mL/min BUN/Creatinine Ratio 15.7 (6-22) Glucose 82 (70-100) mg/dL Calcium 8.5 (8.4-10.2) mg/dL Magnesium (1.6-2.3) mg/dL Total Bilirubin 0.5 (0.2-1.3) mg/dL Conjugated Bilirubin (0.0-0.3) md/dL Unconjugated Bilirubin (0.0-1.1) mg/dL AST 60 H (17-59) IU/L ALT 43 (21-72) IU/L Alkaline Phosphatase 45 (38-126) U/L Total Protein 7.0 (6.3-8.2) g/dL Albumin 4.2 (3.5-5.0) g/dL Globulin 2.8 (1.7-4.1) g/dL Albumin/Globulin Ratio 1.5 (1.0-2.8) Lipase (23-300) U/L Salicylates (<20) mg/dL Urine Opiates Screen (Negative) Ur Oxycodone Screen (Negative) Urine Methadone Screen (Negative) Acetaminophen (10-30) ug/mL Ur Barbiturates Screen (Negative) U Tricyclic Antidepress (Negative) Ur Phencyclidine Scrn (Negative) Ur Amphetamines Screen (Negative) U Methamphetamines Scrn (Negative) Ur MDMA Scrn (Ecstasy) (Negative) U Benzodiazepines Scrn (Negative) Urine Cocaine Screen (Negative) U Marijuana (THC) Screen (Negative) Ethyl Alcohol 385 281 mg/dL Point of Care Testing Breathalizer 206 Glucose POC 81 Urine Dip Bedside Urine Glucose Negative Bedside Urine Bilirubin - Negative Bedside Urine Ketone - Negative Urine Specific [place] 1.010 Bedside Urine Occult Blood - Negative Bedside Urine pH 8.0 Bedside Urine Protein - Negative Bedside Urine Urobilinogen - Negative Bedside Urine Nitrite - Negative Bedside Urine Leukocytes - Negative Esterase MDM Narrative Medical decision making narrative: Repeat labs do reveal elevated sodium 153. Free water deficit 2 L will start D5W 100cc/hr and repeat labs. Patient sleeping. Sitter in place. Patient received 300 cc of D5 W recheck of sodium is 151 which is about where he was a few hours ago. Alcohol is also decreased. 7am Patient signed out to DR. Gandhi at shift change. waiting for transport <Valentina Gandhi DO - Last Filed: 02/09/18 19:33> Lab Data Lab Results 02/08/18 02/08/18 02/08/18 Range/Units 16:30 16:30 17:34 WBC 4.1 L (4.5-11.0) X10^3/uL RBC 3.87 L (4.5-5.9) X10^6/uL Hgb 12.7 L (13.5-17.5) g/dL Hct 36.1 L (41-53) % MCV 93.3 (80-100) fL MCH 32.7 (26-34) PG MCHC 35.0 (30-36) % RDW 14.2 (11.6-14.8) % Plt Count 103 L (150-400) X10^3/uL Neut % (Auto) 55.5 (50-75) % Lymph % (Auto) 35.1 (25-40) % [place]acer % (Auto) 8.7 (3-14) % Eos % (Auto) 0.1 L (2-4) % Baso % (Auto) 0.6 (0-2) % Neut # (Auto) 2300 L (8707-1499) /uL Sodium 150 H (137-145) mmol/L Potassium 3.4 (3.4-5.1) mmol/L Chloride 108 H (98-107) mmol/L Carbon Dioxide 28 (22-32) mmol/L BUN 12 (9-20) mg/dL Creatinine 0.70 (0.66-1.25) mg/dL Estimated GFR > 60.0 (>60) mL/min BUN/Creatinine Ratio 17.1 (6-22) Glucose 88 (70-100) mg/dL Calcium 8.5 (8.4-10.2) mg/dL Magnesium 1.6 (1.6-2.3) mg/dL Total Bilirubin 0.5 (0.2-1.3) mg/dL Conjugated Bilirubin 0.0 (0.0-0.3) md/dL Unconjugated Bilirubin 0.3 (0.0-1.1) mg/dL AST 39 (17-59) IU/L ALT 33 (21-72) IU/L Alkaline Phosphatase 42 (38-126) U/L Total Protein 6.7 (6.3-8.2) g/dL Albumin 3.9 (3.5-5.0) g/dL Globulin 2.8 (1.7-4.1) g/dL Albumin/Globulin Ratio 1.4 (1.0-2.8) Lipase 180 (23-300) U/L Salicylates < 1.0 (<20) mg/dL Urine Opiates Screen Negative (Negative) Ur Oxycodone Screen Negative (Negative) Urine Methadone Screen Negative (Negative) Acetaminophen < 10 L (10-30) ug/mL Ur Barbiturates Screen Negative (Negative) U Tricyclic Antidepress Negative (Negative) Ur Phencyclidine Scrn Negative (Negative) Ur Amphetamines Screen Negative (Negative) U Methamphetamines Scrn Negative (Negative) Ur MDMA Scrn (Ecstasy) Negative (Negative) U Benzodiazepines Scrn Negative (Negative) Urine Cocaine Screen Negative (Negative) U Marijuana (THC) Screen Positive H (Negative) Ethyl Alcohol 345 mg/dL 02/09/18 02/09/18 Range/Units 00:58 05:54 WBC (4.5-11.0) X10^3/uL RBC (4.5-5.9) X10^6/uL Hgb (13.5-17.5) g/dL Hct (41-53) % MCV (80-100) fL MCH (26-34) PG MCHC (30-36) % RDW (11.6-14.8) % Plt Count (150-400) X10^3/uL Neut % (Auto) (50-75) % Lymph % (Auto) (25-40) % [place] % (Auto) (3-14) % Eos % (Auto) (2-4) % Baso % (Auto) (0-2) % Neut # (Auto) (3230-8091) /uL Sodium 153 H 151 H (137-145) mmol/L Potassium 3.6 3.4 (3.4-5.1) mmol/L Chloride 109 H 111 H (98-107) mmol/L Carbon Dioxide 22 28 (22-32) mmol/L BUN 11 (9-20) mg/dL Creatinine 0.70 (0.66-1.25) mg/dL Estimated GFR > 60.0 (>60) mL/min BUN/Creatinine Ratio 15.7 (6-22) Glucose 82 (70-100) mg/dL Calcium 8.5 (8.4-10.2) mg/dL Magnesium (1.6-2.3) mg/dL Total Bilirubin 0.5 (0.2-1.3) mg/dL Conjugated Bilirubin (0.0-0.3) md/dL Unconjugated Bilirubin (0.0-1.1) mg/dL AST 60 H (17-59) IU/L ALT 43 (21-72) IU/L Alkaline Phosphatase 45 (38-126) U/L Total Protein 7.0 (6.3-8.2) g/dL Albumin 4.2 (3.5-5.0) g/dL Globulin 2.8 (1.7-4.1) g/dL Albumin/Globulin Ratio 1.5 (1.0-2.8) Lipase (23-300) U/L Salicylates (<20) mg/dL Urine Opiates Screen (Negative) Ur Oxycodone Screen (Negative) Urine Methadone Screen (Negative) Acetaminophen (10-30) ug/mL Ur Barbiturates Screen (Negative) U Tricyclic Antidepress (Negative) Ur Phencyclidine Scrn (Negative) Ur Amphetamines Screen (Negative) U Methamphetamines Scrn (Negative) Ur MDMA Scrn (Ecstasy) (Negative) U Benzodiazepines Scrn (Negative) Urine Cocaine Screen (Negative) U Marijuana (THC) Screen (Negative) Ethyl Alcohol 385 281 mg/dL Point of Care Testing Breathalizer 206 Glucose POC 81 Urine Dip Bedside Urine Glucose Negative Bedside Urine Bilirubin - Negative Bedside Urine Ketone - Negative Urine Specific [place] 1.010 Bedside Urine Occult Blood - Negative Bedside Urine pH 8.0 Bedside Urine Protein - Negative Bedside Urine Urobilinogen - Negative Bedside Urine Nitrite - Negative Bedside Urine Leukocytes - Negative Esterase Discharge Plan Departure Discharge Date/Time: 02/09/18 09:31 Interventions: ED Discharge Assessment Last Done: 02/09/18 09:16 Prescriptions: No Action nicotine (polacrilex) 4 mg gum 1 ea PO DIRECTED RF: 0 acetaminophen 325 mg Tablet 650 mg PO Q6HR PRN (Reason: Pain, Moderate (4-6)) Qty: 30 RF: 0 levofloxacin 750 mg tablet 750 mg PO DAILY Qty: 10 RF: 0 thiamine HCl (vitamin B1) 100 mg tablet 100 mg PO DAILY Qty: 30 RF: 0
[2018-02-08] MEDS: LORazepam 2 MG/ML SYRINGE IV (23:28)
--- NOTE | 2018-02-08 23:33 | PC.NURSE ---
DCR arrived at 2030. Pt became more awake at about 2100. Pt became agitated from being in the ER. Stated he wanted to leave. Pt on multiple occasions stated he did not want to become detained again for his drinking. He reports he has gotten better and just had a little to drink today States doesn't know why he went back to drinking. Pt in and out of room multiple times with many requests to talk to , to eat, to leave, to have IV removed. Kept coming out of room to talk to DCR. Pt apologizing for being back and for drinking again repeatedly. Has to be told on many occasion to return to room. After pt does return to room, is out of room moments later. Pt did accept ativan at this. Pt made statement of at one point of time of I am going pull my iv out on my own and leave with or without permission. Provider aware of these comments.
[2018-02-09] VITALS (7 sets, daily range): BP systolic 100–146; BP diastolic 51–92; PULSE 58–103; RESP 18–22; TEMP 36.4–36.9; O2SAT 96–100
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
--- NOTE | 2018-02-09 00:27 | PC.NURSE ---
Pt brought back by PD. Pt now in Room 13 with sitter at bedside.
--- NOTE | 2018-02-09 01:03 | PC.NURSE ---
Addendum entered by Carmelita Phillip R.N. 02/09/18 07:04: Pt no longer in seclusion. Original Note: This RN along with MILLA Wall, security police officer, and Ruchi MACHADO went into change pt into safety scrubs. When asked by MILLA Wall pt states he went and drank everclear. Dr Hopkins made aware. Pt moved to ED RM 1 to be placed on the monitor given pt's hx. Sitter still at bedside. PIV establish was also established, 18G in R FA, blood specimens obtained.
[2018-02-09 01:17] LABS: Alanine Aminotransferase 43 IU/L (21-72); Albumin 4.2 g/dL (3.5-5.0); Albumin Globulin Ratio 1.5 (1.0-2.8); Alkaline Phosphatase 45 U/L (38-126); Aspartate Aminotransferase 60 IU/L (17-59); BUN Creatinine Ratio 15.7 (6-22); Bilirubin Total 0.5 mg/dL (0.2-1.3); Blood Urea Nitrogen 11 mg/dL (9-20); Calcium 8.5 mg/dL (8.4-10.2); Carbon Dioxide 22 mmol/L (22-32); Chloride 109 mmol/L (98-107); Estimated Glomerular Filt Rate > 60.0 mL/min (>60); Globulin 2.8 g/dL (1.7-4.1); Glucose 82 mg/dL (70-100); HEMOLYSIS 19 (0-50); Potassium 3.6 mmol/L (3.4-5.1); Sodium 153 mmol/L (137-145)
--- NOTE | 2018-02-09 01:30 | PC.NURSE ---
Patient is within view of nurse's station. Patient on a monitor, vital signs being watched. Patient in hospital provided paper scrub pants. He is given a warm blanket. He looks comfortable. Sleeping with equal rise and fall of chest.
--- NOTE | 2018-02-09 01:43 | PC.NURSE ---
Patient is in bed, resting with monitor. Equal rise and fall of chest.
[2018-02-09 01:54] LABS: Ethanol (ETOH) 385 mg/dL
--- NOTE | 2018-02-09 02:04 | PC.NURSE ---
Patient voided in bed, didn't wake up. Voided in bed all over floor, puddle. Cleaned. Changed bed, took off paper gown, gave new blanket. Patient sleeping with equal rise and fall of chest.
--- NOTE | 2018-02-09 02:14 | PC.NURSE ---
Patient is sleeping in bed, warm blanket. Moving feet. Patient's chest rise and fall equal and even.
[2018-02-09] MEDS: DEXTROSE 5% WATER 1,000 ML 100 ML IV (02:26)
--- NOTE | 2018-02-09 02:39 | PC.NURSE ---
Patient sleeping in bed. Watching patient's chest rise and fall equally.
--- NOTE | 2018-02-09 03:08 | PC.NURSE ---
Patient in bed, sleeping, staff watching rise and fall of chest.
--- NOTE | 2018-02-09 03:09 | PC.NURSE ---
Patient in bed, asleep. Staff watching rise and fall of chest.
--- NOTE | 2018-02-09 03:30 | PC.NURSE ---
Patient in bed, resting/sleeping. Occasionally moves feet or arms, then falls back to sleep. Readjusted the pulse oximeter multiple times as he keeps taking it off.
--- NOTE | 2018-02-09 03:55 | PC.NURSE ---
Patient in bed, removing tele leads as he repositions. Patient asleep with equal rise and fall of chest.
--- NOTE | 2018-02-09 03:56 | PC.NURSE ---
Patient in bed, sleeping.
--- NOTE | 2018-02-09 04:11 | PC.NURSE ---
Patient is taking off pulse ox. Requested warm blanket then said too hot. Cowdrey within reach.
--- NOTE | 2018-02-09 04:29 | PC.NURSE ---
Patient is asleep. Watching equal rise and fall of chest. Put sticky finger pulse ox on finger because patient kept removing it in his sleep. MILLA fallon
--- NOTE | 2018-02-09 04:41 | PC.NURSE ---
pt is sleeping, arrousable to voice. a&Ox4 when fully awake. pt will stay awake and alert for a minute and then fall back to sleep.
--- NOTE | 2018-02-09 04:45 | PC.NURSE ---
Patient resting in bed. Sleeping on left side.
--- NOTE | 2018-02-09 05:15 | PC.NURSE ---
Patient sleeping on left side. Equal rise and fall of chest observed.
--- NOTE | 2018-02-09 05:25 | PC.NURSE ---
Patient resting. Rise and fall of chest witnessed. Equal and unlabored.
--- NOTE | 2018-02-09 05:38 | PC.NURSE ---
Patient resting, on left side.
--- NOTE | 2018-02-09 05:46 | PC.NURSE ---
Patient is sleeping on left side.
--- NOTE | 2018-02-09 06:01 | PC.NURSE ---
Patient waking up. Laying in bed with eyes open.
[2018-02-09 06:12] LABS: Carbon Dioxide 28 mmol/L (22-32); Chloride 111 mmol/L (98-107); Ethanol (ETOH) 281 mg/dL; HEMOLYSIS < 15 (0-50); Potassium 3.4 mmol/L (3.4-5.1); Sodium 151 mmol/L (137-145)
--- NOTE | 2018-02-09 06:24 | PC.NURSE ---
Patient voided, wanted to get up. Explained it wasn't time for that right now. He wanted his clothes. Duke, Dr. Hopkins, and I moved him into room 13. He has a mattress in there. We noticed as he was in there he took a roll of toilet paper and tried to flush it. Lisbeth Bragg, Dr. Hopkins, and I went into the room to lock the bathroom door. He tried to get out of the room, when we explained that was not what we were doing right now. As the door was closing he was reaching for Dr. Hopkisn grabbing her. Shut the door. Patient is now in the room pacing and attempting to get out of the room.
--- NOTE | 2018-02-09 06:33 | PC.NURSE ---
pt became more alert. began pulling out IV and monitor wires. pt redirected to sit calmly and allow us to help him. pt refused ans stated he was going home. pt got out of stretcher and started to walk out of room 1. pt then escorted to room 13. PLASTIC PARTS FABRICATOR at monitor watching pt. pt removed draw string from saftey scrubs and it was recovered from room.
--- NOTE | 2018-02-09 06:36 | PC.NURSE ---
Patient took tie from scrub pants out of scrubs. MILLA Wall took away. Patient standing at door. Told patient it was time to lay down and get some rest.
--- NOTE | 2018-02-09 06:52 | PC.NURSE ---
Patient had a bowel movement
--- NOTE | 2018-02-09 06:56 | PC.NURSE ---
pt asked to use the bathroom. pt was difficult to direct and challenged every request from staff. pt given access to the bathroom where he sat on the toilet for a few minutes and had a bowel movment. pt then given apple juice and a sandwich.
--- NOTE | 2018-02-09 06:56 | PC.NURSE ---
Patient given a snack and tried to get out of the room again. Pushing against door as Duke was leaving.
--- NOTE | 2018-02-09 07:03 | PC.NURSE ---
pt removed own IV. gauze and tape placed on site. catheter tip in tact.
--- NOTE | 2018-02-09 07:09 | PC.NURSE ---
Patient is at the door knocking.I've asked what he needs. He said he wants to go home. I explained to him he can't right now. Continues to pound at the door. Alerted RNs. They are aware.
--- NOTE | 2018-02-09 07:22 | PC.NURSE ---
Patient at door yelling and pounding at the door. Asked if he needed anything, he said he wants to go home I said that wasn't an option right now but breakfast will be arriving shortly. He continues to pound at the door. Yelling at the door. Calling staff near the door humberto and austyn. Alerted RN and Will continue to monitor.
--- NOTE | 2018-02-09 07:35 | PC.NURSE ---
Pt standing at door knocking. Communicated via [employer] system. Abhinav informed he would be transferred @ 0830. Informed breakfast was coming. Pt states he wants to leave. Communicated that was not an option at this point. Verbally redirected to sit on mattress which he did. Continued to state he was already detoxed and wanted to leave. Denies pain, discomfort.
--- NOTE | 2018-02-09 07:35 | PC.NURSE ---
Pt was banging at door. RN Bebe talked to him. He's on the araceli in the room now.
--- NOTE | 2018-02-09 07:47 | PC.NURSE ---
Patient resting in bed. breathing equal and unlabored.
--- NOTE | 2018-02-09 07:57 | PC.NURSE ---
Patient resting on mattress
--- NOTE | 2018-02-09 08:11 | PC.NURSE ---
Patient in bed.
--- NOTE | 2018-02-09 08:19 | PC.NURSE ---
Breakfast was given
--- NOTE | 2018-02-09 08:34 | PC.NURSE ---
Patient at door of room yelling profanity.
[2018-02-09] MEDS: HALOPERIDOL 5 MG/ML VIAL 10 MG IM (08:56)
[2018-02-09] MEDS: diphenhydrAMINE 50 MG/ML VIAL IM (08:57)
[2018-02-09] MEDS: LORazepam 2 MG/ML SYRINGE IM (08:58)
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
--- NOTE | 2018-02-09 09:21 | PC.NURSE ---
Updated report called to [facility]. [phone] to Emily LOYOLA.
== END 2018-02-09 09:31 ==
PROVIDERS: Emergency Medicine; Emergency Provider Emergency Medicine; Family Provider Family Medicine; PCP Family Medicine
DX: F10.10 Alcohol abuse, uncomplicated (principal)
CPT/HCPCS: 36415; 36591; 80051; 80053; 80076; 80305; 80320; 80329; 81003; 82075; 82962; 83690; 83735; 85025; 96361; 96365; 96366; 96372; 96375; 99285; G0480; J1200; J1630; J2060

== ENCOUNTER 2018-02-09 12:19 | Emergency (ER) | payer OTHER, MEDICAID, SELFPAY ==
[2018-01-02 16:22] VITALS: BMI 21.3
[2018-01-05 12:30] VITALS: PULSE 95; RESP 15; O2SAT 100
[2018-02-09 12:24] VITALS: BP 128/76; PULSE 91; RESP 12; TEMP 36.1; O2SAT 98
--- NOTE | 2018-02-09 13:02 | ED_ITS ---
HPI - Alcohol <Valentina Gandhi DO - Last Filed: 02/14/18 06:38> General Chief Complaint: Psychiatric Symptoms Stated Complaint: ETOH Time Seen by Provider: 02/09/18 12:25 Source: patient and EMS Mode of arrival: EMS Limitations: no limitations History of Present Illness HPI narrative: 28-year-old male is brought back by EMS after being it discharged for transfer to a secure detox unit. Patient was here initially for alcohol intoxication and was I to E aid based on prior lays loss. Patient had a bed and plan to transport. When EMS came patient had been increasingly resistant a and on arrival of EMS patient with physically resistant to being placed on the gurney and transferred. Staff had to physically restrain the patient in order to prevent him from running away. PD was contacted and patient received Haldol, Benadryl and Ativan. patient was much more calm after this and was placed on the ER gurney and transferred by EMS. EMS contacted and wrote and they were told that the facility could not handle the patient. All of this information has been relayed to them prior to patient being discharged from the ED. Patient was returned here to the emergency department, patient continues to wish to drink CC [facility] P was recall acted at evaluated patient. because patient had labs overnight new labs were not obtained and is patient had been in custody here in the emergency department except for the initial elopement. Which she had lab work afterwards. Related Data Home Medications Medication Instructions Recorded Confirmed nicotine (polacrilex) 1 ea PO DIRECTED 01/02/18 01/02/18 Previous Rx's Medication Instructions Recorded acetaminophen 650 mg PO Q6HR PRN #30 tab 01/07/18 levofloxacin 750 mg PO DAILY #10 tab 01/07/18 thiamine HCl (vitamin B1) 100 mg PO DAILY #30 tab 01/07/18 Allergies Allergy/AdvReac Type Severity Reaction Status Date / Time shrimp [SHRIMP] Allergy Severe THROAT Verified 11/10/17 13:32 SWELLING/HIVES diazepam [From VALIUM] Allergy Intermediate LEG Verified 11/10/17 13:32 SWELLING haloperidol [From HALDOL] Allergy Unknown DYSTONIA Verified 11/10/17 13:32 naproxen [NAPROXEN] AdvReac Mild NAUSEA/GI Verified 11/10/17 13:32 DISTRESS Review of Systems <Valentina Gandhi DO - Last Filed: 02/14/18 06:38> Neurologic Denies confusion Psychiatric Reports as per HPI, Denies anxiety, Denies confusion, Denies depression, Denies homicidal ideation and Denies suicidal ideation Exam <Valentina Gandhi DO - Last Filed: 02/14/18 06:38> Narrative Exam Narrative: GENERAL: Alert and oriented x three, Tall thin male in mild distress. HEENT: Head normocephalic, atraumatic, EOMI, pupils reactive, face symmetric, moist mucous membranes NECK: Supple, full range of motion CARDIOVASCULAR: Regular rate and rhythm without murmurs, rubs or gallops. RESPIRATORY: Breath sounds equal bilaterally, no wheezes rales or rhonchi. ABDOMEN: Soft, nontender. Normoactive bowel sounds all 4 quadrants. No guarding or rebound, rigidity, no mass : No CVA tenderness EXTREMITIES: Normal range of motion, no clubbing or edema. Neurovascularly intact NEUROLOGICAL: Cranial nerves II through XII grossly intact. Moving all extremities SKIN: Warm, dry, no petechiae, no rashes or lesions. Initial Vital Signs Initial Vital Signs: Vital Signs Temperature 97.0 F L 02/09/18 12:24 Pulse Rate 91 H 02/09/18 12:24 Respiratory Rate 12 02/09/18 12:24 Blood Pressure 128/76 02/09/18 12:24 Pulse Oximetry 98 02/09/18 12:24 Psych Appearance: grossly normal Mental Status: mental status grossly normal Speech and Movement: speech and movement normal Mood: anxious mood Affect: labile affect Attitude: cooperative Thought Process: circumstantial Thought Content: compulsions Judgment: poor <Katiana Hopkins, - Last Filed: 02/14/18 07:18> Initial Vital Signs Initial Vital Signs: Vital Signs Temperature 97.0 F L 02/09/18 12:24 Pulse Rate 91 H 02/09/18 12:24 Respiratory Rate 12 02/09/18 12:24 Blood Pressure 128/76 02/09/18 12:24 Pulse Oximetry 98 02/09/18 12:24 Course <Valentina Gandhi DO - Last Filed: 02/14/18 06:38> Course Narrative: CDP is present in the department evaluating patient. They may have a psychiatric bed available for the patient. Patient signed out to Dr. Hopkins while awaiting possible bed. Orders Ordered: Discontinued Medications Lorazepam (Ativan) 2 mg PO NOW ONE Stop: 02/09/18 18:28 Last Admin: 02/09/18 18:51 Dose: 2 mg Nicotine (Nicoderm) 21 mg TOP NOW ONE Stop: 02/09/18 18:28 Last Admin: 02/09/18 18:58 Dose: 21 mg Vital Signs - 8 hr 02/09/18 12:24 02/09/18 18:16 Temperature 97.0 F L 98.6 F Pulse Rate 91 H 81 Respiratory Rate 12 18 Blood Pressure 128/76 Blood Pressure [Left Arm] 141/85 H Pulse Oximetry 98 99 <Katiana Hopkins DO - Last Filed: 02/14/18 07:18> Orders Ordered: Discontinued Medications Lorazepam (Ativan) 2 mg PO NOW ONE Stop: 02/09/18 18:28 Last Admin: 02/09/18 18:51 Dose: 2 mg Nicotine (Nicoderm) 21 mg TOP NOW ONE Stop: 02/09/18 18:28 Last Admin: 02/09/18 18:58 Dose: 21 mg Vital Signs - 8 hr 02/09/18 12:24 02/09/18 18:16 Temperature 97.0 F L 98.6 F Pulse Rate 91 H 81 Respiratory Rate 12 18 Blood Pressure 128/76 Blood Pressure [Left Arm] 141/85 H Pulse Oximetry 98 99 MDM - Alcohol <Valentina Gandhi DO - Last Filed: 02/14/18 06:38> Lab Data Result diagrams: 02/09/18 18:45 02/09/18 18:45 Labs: Lab Results 02/09/18 02/09/18 02/09/18 Range/Units 18:45 18:45 18:45 WBC 4.0 L (4.5-11.0) X10^3/uL RBC 3.89 L (4.5-5.9) X10^6/uL Hgb 12.5 L (13.5-17.5) g/dL Hct 36.3 L (41-53) % MCV 93.1 (80-100) fL MCH 32.0 (26-34) PG MCHC 34.4 (30-36) % RDW 14.7 (11.6-14.8) % Plt Count 98 L (150-400) X10^3/uL Neut % (Auto) 38.6 L (50-75) % Lymph % (Auto) 48.7 H (25-40) % [facility] % (Auto) 11.3 (3-14) % Eos % (Auto) 0.6 L (2-4) % Baso % (Auto) 0.8 (0-2) % Neut # (Auto) 1600 L (1316-9137) /uL Sodium 144 (137-145) mmol/L Potassium 3.5 (3.4-5.1) mmol/L Chloride 103 (98-107) mmol/L Carbon Dioxide 28 (22-32) mmol/L BUN 12 (9-20) mg/dL Creatinine 0.70 (0.66-1.25) mg/dL Estimated GFR > 60.0 (>60) mL/min BUN/Creatinine Ratio 17.1 (6-22) Glucose 86 (70-100) mg/dL Calcium 8.9 (8.4-10.2) mg/dL Total Bilirubin 0.4 (0.2-1.3) mg/dL AST 53 (17-59) IU/L ALT 40 (21-72) IU/L Alkaline Phosphatase 38 (38-126) U/L Total Protein 6.6 (6.3-8.2) g/dL Albumin 3.8 (3.5-5.0) g/dL Globulin 2.8 (1.7-4.1) g/dL Albumin/Globulin Ratio 1.4 (1.0-2.8) TSH 2.23 (0.47-4.68) uIU/mL Ethyl Alcohol < 10 mg/dL MDM Narrative Medical decision making narrative: Patient is currently being evaluated by [facility] from [facility] for potential psychiatric bed. Did contact this is Eric regarding risk management <Katiana Hopkins DO - Last Filed: 02/14/18 07:18> Lab Data Labs: Lab Results 02/09/18 02/09/18 02/09/18 Range/Units 18:45 18:45 18:45 WBC 4.0 L (4.5-11.0) X10^3/uL RBC 3.89 L (4.5-5.9) X10^6/uL Hgb 12.5 L (13.5-17.5) g/dL Hct 36.3 L (41-53) % MCV 93.1 (80-100) fL MCH 32.0 (26-34) PG MCHC 34.4 (30-36) % RDW 14.7 (11.6-14.8) % Plt Count 98 L (150-400) X10^3/uL Neut % (Auto) 38.6 L (50-75) % Lymph % (Auto) 48.7 H (25-40) % [facility] % (Auto) 11.3 (3-14) % Eos % (Auto) 0.6 L (2-4) % Baso % (Auto) 0.8 (0-2) % Neut # (Auto) 1600 L (9680-4097) /uL Sodium 144 (137-145) mmol/L Potassium 3.5 (3.4-5.1) mmol/L Chloride 103 (98-107) mmol/L Carbon Dioxide 28 (22-32) mmol/L BUN 12 (9-20) mg/dL Creatinine 0.70 (0.66-1.25) mg/dL Estimated GFR > 60.0 (>60) mL/min BUN/Creatinine Ratio 17.1 (6-22) Glucose 86 (70-100) mg/dL Calcium 8.9 (8.4-10.2) mg/dL Total Bilirubin 0.4 (0.2-1.3) mg/dL AST 53 (17-59) IU/L ALT 40 (21-72) IU/L Alkaline Phosphatase 38 (38-126) U/L Total Protein 6.6 (6.3-8.2) g/dL Albumin 3.8 (3.5-5.0) g/dL Globulin 2.8 (1.7-4.1) g/dL Albumin/Globulin Ratio 1.4 (1.0-2.8) TSH 2.23 (0.47-4.68) uIU/mL Ethyl Alcohol < 10 mg/dL Discharge Plan Departure Patient Disposition: Xfer Psychiatric Hosp Discharge Date/Time: 02/09/18 23:46 Interventions: ED Discharge Assessment Last Done: 02/09/18 23:43 <Katiana Hopkins DO - Last Filed: 02/14/18 07:18> Sign Out Provider Sign Out Attestation: Patient signed out to me by Dr. Gandhi, patient left Without any issue
--- NOTE | 2018-02-09 14:34 | PC.NURSE ---
Pt repeatedly coming out of bed 13 and requesting to leave ER, talk with ER physician/charge nurse/reqeusting his belongings. Pt redirected to stay in the room, his belongings won't be returned to him until he is disposed to home/other facility and he needs DCR's evaulation. Pt states he has places to go and will f/u as outpt. Food and drinks provided and pt currently being monitored Q15min.
--- NOTE | 2018-02-09 14:36 | PC.NURSE ---
Pt checks from 1320 to 1445 are on paper documentation.
--- NOTE | 2018-02-09 15:05 | PC.NURSE ---
This oncoming CORE MACHINE TENDER received passdown from CARTER Freeman (Acute Care Dept.) on Patient in isolation. Upon observation, patient seems calm and continues to stand near door. Has had questions about Doctor and able to get food which was delivered.
--- NOTE | 2018-02-09 15:20 | PC.NURSE ---
Pt. remaining calm. Currently using bathroom. Wanting more food which has been place to order and is on the way.
--- NOTE | 2018-02-09 15:35 | PC.NURSE ---
Pt. currently laying in bed, MILLA Blanco has left door unlock because of Pt. cooperation with staff.
--- NOTE | 2018-02-09 15:35 | PC.NURSE ---
Late Entry at 1400-Pt wandering the room, not in seclusion at this time but being monitored by 1:1 in RM13.
--- NOTE | 2018-02-09 15:56 | PC.NURSE ---
Pt. remains calm. Using bathroom. Requested more food, awaiting food.
--- NOTE | 2018-02-09 16:10 | PC.NURSE ---
Pt. remains calm laying in bed. Food was given.
--- NOTE | 2018-02-09 16:26 | PC.NURSE ---
Pt. remains asleep. Nothing new at this time.
--- NOTE | 2018-02-09 16:40 | PC.NURSE ---
Pt. remains asleep. Nothing new to report. Remains on 1:1 observation.
--- NOTE | 2018-02-09 17:00 | PC.NURSE ---
Pt. remains asleep. Nothing new to note.
--- NOTE | 2018-02-09 17:09 | PC.NURSE ---
Pt. remains asleep. remains 1:1. Nothing new to note
--- NOTE | 2018-02-09 17:26 | PC.NURSE ---
Pt. remains asleep. Still 1:1.
--- NOTE | 2018-02-09 17:40 | PC.NURSE ---
Pt. woke up requesting food. Food given. Pt remains calm. Still 1:1 observation.
--- NOTE | 2018-02-09 17:55 | PC.NURSE ---
Pt. back to sleep. Has remained calm and cooperative. Still 1:1.
--- NOTE | 2018-02-09 18:11 | PC.NURSE ---
Pt. remains asleep. Remains 1:1.
[2018-02-09 18:16] VITALS: BP 141/85; PULSE 81; RESP 18; TEMP 37; O2SAT 99
--- NOTE | 2018-02-09 18:17 | PC.NURSE ---
Took vitals at 1816. Patient cooperative and calm. Wandering around room. Meeting with nurse.
--- NOTE | 2018-02-09 18:22 | PC.NURSE ---
Spoke with an accepting facility MILLA Bauer and requesting repeat cmp, cbc, tsh level drawn. Vs and CIWA test done and noted. Requesting Nicotin patch and ativan PO and MD aware.
--- NOTE | 2018-02-09 18:32 | PC.NURSE ---
Pt. asleep. on 1:1. Nothing new to report.
--- NOTE | 2018-02-09 18:46 | PC.NURSE ---
Pt. still sleeping. Was awaken for blood to be drawn at 1844. Pt. compliant.
[2018-02-09] MEDS: LORazepam 0.5 MG TABLET 2 MG PO (18:51)
[2018-02-09 18:52] LABS: Add Manual Diff / Slide Review NO; Basophils Percent Auto 0.8 % (0-2); Eosinophils Percent Auto 0.6 % (2-4); Hematocrit 36.3 % (41-53); Hemoglobin 12.5 g/dL (13.5-17.5); Lymphocytes Percent Auto 48.7 % (25-40); Mean Corpuscular HGB Conc 34.4 % (30-36); Mean Corpuscular Volume 93.1 fL (80-100); Monocytes Percent Auto 11.3 % (3-14); Neutrophils Absolute Auto 1600 /uL (3000-5900); Neutrophils Percent Auto 38.6 % (50-75); Platelet Count 98 X10^3/uL (150-400); Red Blood Cell Count 3.89 X10^6/uL (4.5-5.9); Red Cell Distribution Width 14.7 % (11.6-14.8)
[2018-02-09] MEDS: NICOTINE 21 MG PATCH TOP (18:58)
--- NOTE | 2018-02-09 19:00 | PC.NURSE ---
Pt still laying in bed. Nothing new to report. 1:1
[2018-02-09 19:07] LABS: Alanine Aminotransferase 40 IU/L (21-72); Albumin 3.8 g/dL (3.5-5.0); Albumin Globulin Ratio 1.4 (1.0-2.8); Alkaline Phosphatase 38 U/L (38-126); Aspartate Aminotransferase 53 IU/L (17-59); BUN Creatinine Ratio 17.1 (6-22); Bilirubin Total 0.4 mg/dL (0.2-1.3); Blood Urea Nitrogen 12 mg/dL (9-20); Calcium 8.9 mg/dL (8.4-10.2); Carbon Dioxide 28 mmol/L (22-32); Chloride 103 mmol/L (98-107); Estimated Glomerular Filt Rate > 60.0 mL/min (>60); Ethanol (ETOH) < 10 mg/dL; Globulin 2.8 g/dL (1.7-4.1); Glucose 86 mg/dL (70-100); HEMOLYSIS < 15 (0-50); Potassium 3.5 mmol/L (3.4-5.1); Sodium 144 mmol/L (137-145); Total Protein 6.6 g/dL (6.3-8.2)
--- NOTE | 2018-02-09 19:15 | PC.NURSE ---
Pt. remains asleep. No complaints. 1:1
--- NOTE | 2018-02-09 19:22 | PC.NURSE ---
Pt being monitored 1:1 but not in seclusion restraint last temporarily restraint. Pt appears to be resting in bed. NAD noted at this time. Pt not pacing, agitated, attempts leave the pt's room. Plan of care discussed but pt states I failed the treatment in the past...
--- NOTE | 2018-02-09 19:30 | PC.NURSE ---
Pt. still asleep. No complaints. 1:1
[2018-02-09 19:38] LABS: Thyroid Stimulating Hormone 2.23 uIU/mL (0.47-4.68)
--- NOTE | 2018-02-09 19:38 | PC.NURSE ---
Mid-shift break. Leaving CARTER Neal with 1:1 for Pt.
--- NOTE | 2018-02-09 19:41 | PC.NURSE ---
Pt calm resting on stretcher with eyes closed. respirations observed. Sitter at door for 1:1 monitoring.
--- NOTE | 2018-02-09 20:14 | PC.NURSE ---
Resumed 1:1 observation. Pt. still asleep and resting on stretcher.
--- NOTE | 2018-02-09 20:30 | PC.NURSE ---
Pt. received transfer orders. Pt. remains calm and still laying on stretcher. Nothing new to report.
--- NOTE | 2018-02-09 20:45 | PC.NURSE ---
Pt. remains asleep. nothing new to report.
--- NOTE | 2018-02-09 21:00 | PC.NURSE ---
Pt. still asleep on stretcher. Nothing new to report.
--- NOTE | 2018-02-09 21:23 | PC.NURSE ---
Pt. remains asleep. Nothing new to report.
--- NOTE | 2018-02-09 21:28 | PC.NURSE ---
pt resting on stretcher with eyes closed. respirations observed. arouses easily to voice. denies needs at this time. 1:1 sitter at door
--- NOTE | 2018-02-09 21:48 | PC.NURSE ---
Pt. still remains sleeping on stretcher. Has only requested food in past hour. Went to bathroom to use sink once. Was given a warm blanket and sandwich. Nothing new to report.
--- NOTE | 2018-02-09 22:06 | PC.NURSE ---
Pt. remains asleep. Nothing new to report. Estimated transfer time is 2330 by [facility] to accepting facility.
--- NOTE | 2018-02-09 22:28 | PC.NURSE ---
Pt. still asleep. Nothing new to report.
--- NOTE | 2018-02-09 22:43 | PC.NURSE ---
Pt. is still sleeping. Nothing new to report.
--- NOTE | 2018-02-09 22:53 | PC.NURSE ---
Pt. remains asleep. Nothing new to report at this time.
[2018-02-09 23:02] VITALS: BP 135/83; PULSE 88; RESP 18; TEMP 36.2; O2SAT 99
--- NOTE | 2018-02-09 23:09 | PC.NURSE ---
Pt. still sleeping. Nothing new to report.
--- NOTE | 2018-02-09 23:24 | PC.NURSE ---
Pt. is still asleep. Nothing new to report. Last vitals before transfer taken around 2300.
== END 2018-02-09 23:46 ==
PROVIDERS: Emergency Provider Emergency Medicine; Family Provider Family Medicine; PCP Family Medicine
DX: F10.10 Alcohol abuse, uncomplicated (principal)
CPT/HCPCS: 36415; 80053; 80320; 84443; 85025; 99285

== ENCOUNTER 2018-02-15 12:23 | Inpatient (IN) | payer OTHER, MEDICAID, SELFPAY ==
[2018-01-02 16:22] VITALS: BMI 21.3
[2018-01-05 12:30] VITALS: PULSE 95; RESP 15; O2SAT 100
[2018-02-15] VITALS (23 sets, daily range): BP systolic 94–134; BP diastolic 50–99; PULSE 52–81; RESP 12–18; TEMP 35.9–36.8; O2SAT 95–100; BMI 22.7; BMI 22.3
--- NOTE | 2018-02-15 12:27 | DI.RAD.S_ITS ---
PROCEDURE: XR CHEST 1V INDICATIONS: ET tube placemant TECHNIQUE: One view of the chest was acquired. COMPARISON: None. FINDINGS: Surgical changes and devices: Endotracheal tube is seen with the tip projecting approximately 5 cm above the matthew. Lungs and pleura: No pleural effusions or pneumothorax. Lungs are clear. Mediastinum: Mediastinal contours appear normal. Heart size is normal. Bones and chest wall: No suspicious bony lesions. Overlying soft tissues appear unremarkable. IMPRESSION: Endotracheal tube with the tip projecting 5 cm above the matthew. No acute consolidation Dictated by: Yamil Montano M.D. on 02/15/2018 at 12:53 Approved by: Yamil Montano M.D. on 02/15/2018 at 12:56
[2018-02-15] MEDS: PROPOFOL 1,000 MG/100 ML VIAL 4.32 MG IV (12:30)
[2018-02-15] MEDS: PROPOFOL 200 MG/20 ML VIAL 32 MG IV (12:30)
--- NOTE | 2018-02-15 12:31 | DI.CT.S_ITS ---
PROCEDURE: CT HEAD/BRAIN WO CON INDICATIONS: unresponsive TECHNIQUE: Noncontrast 4.5 mm thick angled axial sections acquired from the foramen magnum to the vertex, with coronal and sagittal reformats. For radiation dose reduction, the following was used: automated exposure control, adjustment of mA and/or kV according to patient size. COMPARISON: None. FINDINGS: Image quality: Excellent. CSF spaces: Basal cisterns are patent. No extra-axial fluid collections. Ventricles are normal in size and shape. Brain: No midline shift. No intracranial masses or hemorrhage. Dey-white matter interface is normal. Skull and face: Calvarium and visualized facial bones are intact, without suspicious lesions. Minimal left scalp swelling. Sinuses: Visualized sinuses and mastoids are clear. IMPRESSION: No acute intracranial process. Mild left frontal scalp/supraorbital swelling. Please correlate clinically. Dictated by: Yamil Montano M.D. on 02/15/2018 at 13:24 Approved by: Yamil Montano M.D. on 02/15/2018 at 13:27
[2018-02-15 12:37] LABS: Add Manual Diff / Slide Review NO; Basophils Percent Auto 1.2 % (0-2); Eosinophils Percent Auto 1.8 % (2-4); Hematocrit 43.4 % (41-53); Hemoglobin 15.4 g/dL (13.5-17.5); Lymphocytes Percent Auto 54.7 % (25-40); Mean Corpuscular HGB Conc 35.4 % (30-36); Mean Corpuscular Hemoglobin 33.5 PG (26-34); Mean Corpuscular Volume 94.6 fL (80-100); Monocytes Percent Auto 6.7 % (3-14); Neutrophils Absolute Auto 1600 /uL (3000-5900); Neutrophils Percent Auto 35.6 % (50-75); Platelet Count 146 X10^3/uL (150-400); Red Blood Cell Count 4.59 X10^6/uL (4.5-5.9); Red Cell Distribution Width 15.7 % (11.6-14.8); White Blood Cell Count 4.4 X10^3/uL (4.5-11.0)
--- NOTE | 2018-02-15 12:37 | ED.OVERDOSE ---
HPI - Overdose General Stated Complaint: Respiratory Arrest Time Seen by Provider: 02/15/18 12:27 Source: EMS and old records reviewed Limitations: physical limitation (Intubated) History of Present Illness HPI Narrative: Patient is a 28-year-old male with history of alcoholism and frequent intubations. He was found unresponsive by his at home she tried to arouse him but could not. EMS found him in intubated him in the field. He is actually seen here last week Rashad law was applied he was sent tissue he was for rehab unclear when he got out. No sign of trauma. Related Data Home Medications Medication Instructions Recorded Confirmed nicotine (polacrilex) 1 ea PO DIRECTED 01/02/18 01/02/18 Previous Rx's Medication Instructions Recorded acetaminophen 650 mg PO Q6HR PRN #30 tab 01/07/18 levofloxacin 750 mg PO DAILY #10 tab 01/07/18 thiamine HCl (vitamin B1) 100 mg PO DAILY #30 tab 01/07/18 Allergies Allergy/AdvReac Type Severity Reaction Status Date / Time shrimp [SHRIMP] Allergy Severe THROAT Verified 11/10/17 13:32 SWELLING/HIVES diazepam [From VALIUM] Allergy Intermediate LEG Verified 11/10/17 13:32 SWELLING haloperidol [From HALDOL] Allergy Unknown DYSTONIA Verified 11/10/17 13:32 naproxen [NAPROXEN] AdvReac Mild NAUSEA/GI Verified 11/10/17 13:32 DISTRESS Review of Systems Review of Systems due to endotracheal tube [facility] Medical History Alcoholism (Acute) Depression (Acute) Eating disorder (Acute) Epilepsy (Acute) Low back pain (Acute) Family History Grandfather Type 2 diabetes mellitus without complication, 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 Social History household members: spouse Smoking Status: Current every day smoker Exam Initial Vital Signs Initial Vital Signs: Vital Signs Temperature 97.8 F 02/15/18 12:23 Pulse Rate 76 02/15/18 12:23 Respiratory Rate 18 02/15/18 12:23 Pulse Oximetry 100 02/15/18 12:23 Const General: patient mechanically ventilated Nutritional Appearance: thin Eyes General: appearance normal, both eyes and all related structures Pupils: PERRL Neck Neck: normal visual inspection and full ROM Chest Chest: normal inspection of the chest Resp Effort & Inspection: normal respiratory effort Other: Decreased breath sounds on the left breath sounds present on right Cardio Rate: regular rate Rhythm: regular rhythm Heart Sounds: S1 normal and S2 normal GI Palpation: soft, No firm and No tender Skin General: no rashes or lesions noted, No jaundice and No petechiae Neuro Comatose Patient: corneal reflex present Extrem General: normal to inspection Right upper extremity: normal to inspection Left upper extremity: normal to inspection Right lower extremity: normal to inspection Left lower extremity: normal to inspection Course Orders Ordered: ED Orders 02/15/18 12:27 XR chest 1V Stat 02/15/18 12:30 Acetaminophen Stat Complete Blood Count AUTO DIFF Stat Comprehensive Metabolic Panel Stat Ethanol (ETOH) Stat Salicylate Stat 02/15/18 12:31 CT head/brain wo con Stat 02/15/18 13:19 Lactate (Lactic Acid) Stat 02/15/18 13:45 Arterial Blood Gas Routine Sodium Chloride (Normal Saline 0.9%) 1,000 mls @ 150 mls/hr IV CONT HOLGER Last Admin: 02/15/18 13:30 Dose: Propofol (Propofol) 1,000 mg in 100 mls @ 2.16 mls/hr IV TITRATE HOLGER; Protocol Last Titration: 02/15/18 14:26 Dose: 15 mcg/kg/min, 6.48 mls/hr Titration: 02/15/18 13:58 Dose: 15 mcg/kg/min, 6.48 mls/hr Admin: 02/15/18 12:30 Dose: 10 mcg/kg/min, 4.32 mls/hr Dextrose (Dextrose 5% Water) 1,000 mls @ 100 mls/hr IV CONT HOLGER Last Infusion: 02/15/18 14:25 Dose: 100 mls/hr Admin: 02/15/18 13:31 Dose: 100 mls/hr Discontinued Medications Propofol (Diprivan) 32 mg IV NOW ONE Stop: 02/15/18 12:31 Last Admin: 02/15/18 12:30 Dose: 32 mg Vital Signs - 8 hr 02/15/18 12:23 02/15/18 12:30 02/15/18 12:45 Temperature 97.8 F Pulse Rate 76 76 79 Respiratory Rate 18 18 12 Blood Pressure [Right Arm] 126/99 H 127/88 Pulse Oximetry 100 100 100 02/15/18 13:00 02/15/18 13:15 02/15/18 13:30 Temperature Pulse Rate 62 60 56 L Respiratory Rate 12 12 12 Blood Pressure [Right Arm] 115/83 122/97 H 123/92 H Pulse Oximetry 100 97 100 02/15/18 13:45 02/15/18 13:59 Temperature Pulse Rate 55 L 57 L Respiratory Rate 12 15 Blood Pressure [Right Arm] 124/94 H 124/94 H Pulse Oximetry 100 100 MDM - Overdose Lab Data Attestation: I reviewed the patient's lab results. Free water deficit: 2L Result diagrams: 02/15/18 12:30 02/15/18 12:30 Lab Results 02/15/18 02/15/18 02/15/18 Range/Units 12:30 12:30 13:19 WBC 4.4 L (4.5-11.0) X10^3/uL RBC 4.59 (4.5-5.9) X10^6/uL Hgb 15.4 (13.5-17.5) g/dL Hct 43.4 (41-53) % MCV 94.6 (80-100) fL MCH 33.5 (26-34) PG MCHC 35.4 (30-36) % RDW 15.7 H (11.6-14.8) % Plt Count 146 L (150-400) X10^3/uL Neut % (Auto) 35.6 L (50-75) % Lymph % (Auto) 54.7 H (25-40) % [place] % (Auto) 6.7 (3-14) % Eos % (Auto) 1.8 L (2-4) % Baso % (Auto) 1.2 (0-2) % Neut # (Auto) 1600 L (8356-4112) /uL ABG pH (7.35-7.45) ABG pCO2 (35-45) mmHg ABG pO2 (80-105) mmHg ABG HCO3 (23-27) mmol/L ABG Total CO2 (23-27) mmol/L ABG O2 Saturation (95-100) % ABG Base Excess (-2-3) mmol/L FiO2 Sodium 154 H D (137-145) mmol/L Potassium 3.7 (3.4-5.1) mmol/L Chloride 108 H (98-107) mmol/L Carbon Dioxide 32 (22-32) mmol/L BUN 11 (9-20) mg/dL Creatinine 0.70 (0.66-1.25) mg/dL Estimated GFR > 60.0 (>60) mL/min BUN/Creatinine Ratio 15.7 (6-22) Glucose 82 (70-100) mg/dL Lactate 3.1 H (0.7-2.1) mmol/L Calcium 8.4 (8.4-10.2) mg/dL Total Bilirubin 0.5 (0.2-1.3) mg/dL AST 35 (17-59) IU/L ALT 35 (21-72) IU/L Alkaline Phosphatase 48 (38-126) U/L Total Protein 7.7 (6.3-8.2) g/dL Albumin 4.4 (3.5-5.0) g/dL Globulin 3.3 (1.7-4.1) g/dL Albumin/Globulin Ratio 1.3 (1.0-2.8) Salicylates < 1.0 (<20) mg/dL Urine Opiates Screen (Negative) Ur Oxycodone Screen (Negative) Urine Methadone Screen (Negative) Acetaminophen < 10 L (10-30) ug/mL Ur Barbiturates Screen (Negative) U Tricyclic Antidepress (Negative) Ur Phencyclidine Scrn (Negative) Ur Amphetamines Screen (Negative) U Methamphetamines Scrn (Negative) Ur MDMA Scrn (Ecstasy) (Negative) U Benzodiazepines Scrn (Negative) Urine Cocaine Screen (Negative) U Marijuana (THC) Screen (Negative) Ethyl Alcohol 439 H* mg/dL 02/15/18 02/15/18 Range/Units 13:45 Unknown WBC (4.5-11.0) X10^3/uL RBC (4.5-5.9) X10^6/uL Hgb (13.5-17.5) g/dL Hct (41-53) % MCV (80-100) fL MCH (26-34) PG MCHC (30-36) % RDW (11.6-14.8) % Plt Count (150-400) X10^3/uL Neut % (Auto) (50-75) % Lymph % (Auto) (25-40) % [place] % (Auto) (3-14) % Eos % (Auto) (2-4) % Baso % (Auto) (0-2) % Neut # (Auto) (8398-2531) /uL ABG pH 7.29 L (7.35-7.45) ABG pCO2 54.0 H (35-45) mmHg ABG pO2 213 H (80-105) mmHg ABG HCO3 26 (23-27) mmol/L ABG Total CO2 28 H (23-27) mmol/L ABG O2 Saturation 100 (95-100) % ABG Base Excess 0.0 (-2-3) mmol/L FiO2 50 Sodium (137-145) mmol/L Potassium (3.4-5.1) mmol/L Chloride (98-107) mmol/L Carbon Dioxide (22-32) mmol/L BUN (9-20) mg/dL Creatinine (0.66-1.25) mg/dL Estimated GFR (>60) mL/min BUN/Creatinine Ratio (6-22) Glucose (70-100) mg/dL Lactate (0.7-2.1) mmol/L Calcium (8.4-10.2) mg/dL Total Bilirubin (0.2-1.3) mg/dL AST (17-59) IU/L ALT (21-72) IU/L Alkaline Phosphatase (38-126) U/L Total Protein (6.3-8.2) g/dL Albumin (3.5-5.0) g/dL Globulin (1.7-4.1) g/dL Albumin/Globulin Ratio (1.0-2.8) Salicylates (<20) mg/dL Urine Opiates Screen Negative (Negative) Ur Oxycodone Screen Negative (Negative) Urine Methadone Screen Negative (Negative) Acetaminophen (10-30) ug/mL Ur Barbiturates Screen Negative (Negative) U Tricyclic Antidepress Negative (Negative) Ur Phencyclidine Scrn Negative (Negative) Ur Amphetamines Screen Negative (Negative) U Methamphetamines Scrn Negative (Negative) Ur MDMA Scrn (Ecstasy) Negative (Negative) U Benzodiazepines Scrn Negative (Negative) Urine Cocaine Screen Negative (Negative) U Marijuana (THC) Screen Positive H (Negative) Ethyl Alcohol mg/dL Point of Care Testing Glucose POC 145 Imaging Data Chest x-ray: Radiologist's impression: PROCEDURE: XR CHEST 1V INDICATIONS: ET tube placemant TECHNIQUE: One view of the chest was acquired. COMPARISON: None. FINDINGS: Surgical changes and devices: Endotracheal tube is seen with the tip projecting approximately 5 cm above the matthew. Lungs and pleura: No pleural effusions or pneumothorax. Lungs are clear. Mediastinum: Mediastinal contours appear normal. Heart size is normal. Bones and chest wall: No suspicious bony lesions. Overlying soft tissues appear unremarkable. IMPRESSION: Endotracheal tube with the tip projecting 5 cm above the matthew. No acute consolidation Dictated by: Yamil Montano M.D. on 02/15/2018 at 12:53 CT scan - head: Radiologist's impression: PROCEDURE: CT HEAD/BRAIN WO CON INDICATIONS: unresponsive TECHNIQUE: Noncontrast 4.5 mm thick angled axial sections acquired from the foramen magnum to the vertex, with coronal and sagittal reformats. For radiation dose reduction, the following was used: automated exposure control, adjustment of mA and/or kV according to patient size. COMPARISON: None. FINDINGS: Image quality: Excellent. CSF spaces: Basal cisterns are patent. No extra-axial fluid collections. Ventricles are normal in size and shape. Brain: No midline shift. No intracranial masses or hemorrhage. Dey-white matter interface is normal. Skull and face: Calvarium and visualized facial bones are intact, without suspicious lesions. Minimal left scalp swelling. Sinuses: Visualized sinuses and mastoids are clear. IMPRESSION: No acute intracranial process. Mild left frontal scalp/supraorbital swelling. Please correlate clinically. Dictated by: Yamil Montano M.D. on 02/15/2018 at 13:24 Approved by: Yamil Montano M.D. on 02/15/2018 at 13:27 MDM Narrative Medical decision making narrative: Patient is put on propofol drip. Started on D5W for hypernatremia. I spoke with , who accepts patient. Patient was involuntarily detained last week for rehab, recommend social work consultation when he is off the ventilator. Discharge Plan Departure Patient Disposition: Admitted As Inpatient Clinical Impression: Alcohol intoxication, Respiratory failure, Acute hypernatremia Discharge Date/Time: 02/15/18 14:28
[2018-02-15 12:50] LABS: Acetaminophen < 10 ug/mL (10-30); Alanine Aminotransferase 35 IU/L (21-72); Albumin 4.4 g/dL (3.5-5.0); Albumin Globulin Ratio 1.3 (1.0-2.8); Alkaline Phosphatase 48 U/L (38-126); Aspartate Aminotransferase 35 IU/L (17-59); BUN Creatinine Ratio 15.7 (6-22); Bilirubin Total 0.5 mg/dL (0.2-1.3); Blood Urea Nitrogen 11 mg/dL (9-20); Calcium 8.4 mg/dL (8.4-10.2); Carbon Dioxide 32 mmol/L (22-32); Chloride 108 mmol/L (98-107); Estimated Glomerular Filt Rate > 60.0 mL/min (>60); Globulin 3.3 g/dL (1.7-4.1); Glucose 82 mg/dL (70-100); HEMOLYSIS < 15 (0-50); Potassium 3.7 mmol/L (3.4-5.1); Sodium 154 mmol/L (137-145); Total Protein 7.7 g/dL (6.3-8.2)
[2018-02-15 12:57] LABS: Salicylate < 1.0 mg/dL (<20)
[2018-02-15 13:02] LABS: Ethanol (ETOH) 439 mg/dL
[2018-02-15] MEDS: DEXTROSE 5% WATER 1,000 ML 100 ML IV ×2 (13:31→16:21)
--- NOTE | 2018-02-15 13:34 | CM.MNRNOTE ---
unable to complete JEN score at this time due to ETOH abuse FIRST FRONT VENTILATOR
--- NOTE | 2018-02-15 13:37 | PC.NURSE ---
#18 zimbabwean to Low wall intermitant suction placed w/o difficulty in left nare. Yellow/green fluid out. + placement by auscultation.
[2018-02-15 13:56] LABS: PO2 ABG 213 mmHg (80-105); pH ABG 7.29 (7.35-7.45)
[2018-02-15 13:57] LABS: Fractionated Inspired Oxygen 50; HCO3 ABG 26 mmol/L (23-27); Oxygen Saturation ABG 100 % (95-100); TCO2 ABG 28 mmol/L (23-27)
[2018-02-15 13:59] LABS: Lactate (Lactic Acid) 3.1 mmol/L (0.7-2.1)
[2018-02-15 14:00] LABS: Urine Amphetamines Negative (Negative); Urine Barbiturates Negative (Negative); Urine Benzodiazepines Negative (Negative); Urine Cocaine Negative (Negative); Urine MDMA Negative (Negative); Urine Methadone Negative (Negative); Urine Methamphetamines Negative (Negative); Urine Morphine/Opi cutoff 2000 Negative (Negative); Urine Oxycodone Negative (Negative); Urine Phencyclidine Negative (Negative); Urine Tetrahydrocannabinol Positive (Negative); Urine Tricyclic Antidepressant Negative (Negative)
--- NOTE | 2018-02-15 14:28 | PC.NURSE ---
skin appears intact
--- NOTE | 2018-02-15 14:54 | PC.ADMIT ---
Admission Note: Patient arrived to room 102 from ER at 1420 via stretcher. Pt intubated by EMS in field. Reaching for tubes on arrival, moving upper extremities. Not responding to commands or to voice, eyes remain closed. FiO2 40% with oxygen sats 100%. Lungs clear but decreased. Sedated with propofol at 30 mcg/kg/min. Isabel in place and draining clear yellow urine. Shirt, shoes, and pants in room closet. MD rounds at bedside. The patient,Abhinav Herr,28 y/o, was given written information regarding hospital policies, unit procedures and contact persons. Patient's smoking status: Unknown if ever smoked. Vital Signs - 8 hr 02/15/18 12:23 02/15/18 12:30 02/15/18 12:45 Temperature 97.8 F Pulse Rate 76 76 79 Respiratory Rate 18 18 12 Blood Pressure Blood Pressure [Right Arm] 126/99 H 127/88 Pulse Oximetry 100 100 100 02/15/18 13:00 02/15/18 13:15 02/15/18 13:30 Temperature Pulse Rate 62 60 56 L Respiratory Rate 12 12 12 Blood Pressure Blood Pressure [Right Arm] 115/83 122/97 H 123/92 H Pulse Oximetry 100 97 100 02/15/18 13:45 02/15/18 13:59 02/15/18 14:48 Temperature 97.5 F L Pulse Rate 55 L 57 L 72 Respiratory Rate 12 15 15 Blood Pressure 134/92 H Blood Pressure [Right Arm] 124/94 H 124/94 H Pulse Oximetry 100 100 100
[2018-02-15] MEDS: DEXTROSE 5%-0.9% NS 1,000 ML 100 ML IV (15:37)
--- NOTE | 2018-02-15 15:57 | P.HP_ITS ---
History of Present Illness Date Patient Seen: 02/15/18 Time Patient Seen: 15:49 Chief complaint: Respiratory Arrest Narrative: 28-year-old male with past medical history of depression, alcoholism , eating disorder presented to ED with acute respiratory failure secondary to alcohol overdose. Patient was found unresponsive by his earlier today, and when she tried to wake him up, patient was unarousable. The then called the ambulance, who on arrival found patient to be unresponsive and intubated him in the field. Of note patient has a history of frequent hospital admissions with intubation secondary to alcohol overdose. He was last seen here 1 week ago, after which time Rashad level was applied and patient was transferred for rehab. He presumably was discharged from rehab and had another relapse of alcohol overdose. On admission to the hospital, patient was already intubated. Vital signs were stable he is on full vent support. Patient's lab work revealed WBC of 4.4, hemoglobin 15.4, hematocrit 43.4, and platelet count 146. Sodium was 154, potassium 3.7, chloride 108, bicarb 32, BUN 11, and creatinine 0.70. ETOH level 439, and UDS positive for marijuana. Head CT revealed no acute intracranial process. Chest x-ray revealed proper intubation with ET tube positioning, and no acute cardiopulmonary process. Patient was admitted to ICU for proper further management of alcohol intoxication and acute respiratory failure secondary to alcohol intoxication. 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 Social History: household members spouse Tobacco & Substance use: Smoking Status Unknown if ever smoked alcohol intake current alcohol intake frequency 3 or more drinks per day Substance Use Type marijuana Meds Home Medications Medication Instructions Recorded Confirmed Type acetaminophen 650 mg PO Q6HR PRN #30 tab 01/07/18 02/15/18 Rx thiamine HCl (vitamin B1) 100 mg PO DAILY #30 tab 01/07/18 02/15/18 Rx Allergies Allergy/AdvReac Type Severity Reaction Status Date / Time shrimp [SHRIMP] Allergy Severe THROAT Verified 11/10/17 13:32 SWELLING/HIVES diazepam [From VALIUM] Allergy Intermediate LEG Verified 11/10/17 13:32 SWELLING haloperidol [From HALDOL] Allergy Unknown DYSTONIA Verified 11/10/17 13:32 naproxen [NAPROXEN] AdvReac Mild NAUSEA/GI Verified 11/10/17 13:32 DISTRESS Review of Systems Review of Systems unobtainable due to mental status Exam Vital Signs (past 8 hours): - 02/15/18 12:23 02/15/18 12:30 02/15/18 12:45 Temperature 97.8 F Pulse Rate 76 76 79 Respiratory Rate 18 18 12 Blood Pressure Blood Pressure [Right Arm] 126/99 H 127/88 Pulse Oximetry 100 100 100 02/15/18 13:00 02/15/18 13:15 02/15/18 13:30 Temperature Pulse Rate 62 60 56 L Respiratory Rate 12 12 12 Blood Pressure Blood Pressure [Right Arm] 115/83 122/97 H 123/92 H Pulse Oximetry 100 97 100 02/15/18 13:45 02/15/18 13:59 02/15/18 14:20 Temperature 97.5 F L Pulse Rate 55 L 57 L 72 Respiratory Rate 12 15 15 Blood Pressure 134/92 H Blood Pressure [Right Arm] 124/94 H 124/94 H Pulse Oximetry 100 100 100 02/15/18 14:48 02/15/18 14:56 Temperature 97.5 F L 97.0 F L Pulse Rate 72 55 L Respiratory Rate 15 16 Blood Pressure 134/92 H 116/73 Blood Pressure [Right Arm] Pulse Oximetry 100 Fraction of Inspired Oxygen 40 Oxygen Delivery Method Mechanical Ventilation Oxygen Flow Rate 100 Narrative Exam Narrative: General: RASS -5, non responsive to verbal or tactile stimuli HEENT: Pinpoint pupils BL. ET tube at 24cm. NG tube in place Neck: Supple, no LAD CV: RRR, no murmurs or gallops Resp: CTA BL, no wheezing GI: +BS, soft MSK: Upper extremities in soft restraints. Moves Lower extremities Neuro: RASS -5 Skin: No bruising or lestions Objective Labs Result Diagrams: 02/15/18 12:30 02/15/18 12:30 Labs: Laboratory Results - last 24 hr 02/15/18 02/15/18 02/15/18 12:30 12:30 13:19 WBC 4.4 L RBC 4.59 Hgb 15.4 Hct 43.4 MCV 94.6 MCH 33.5 MCHC 35.4 RDW 15.7 H Plt Count 146 L Neut % (Auto) 35.6 L Lymph % (Auto) 54.7 H [place] % (Auto) 6.7 Eos % (Auto) 1.8 L Baso % (Auto) 1.2 Neut # (Auto) 1600 L ABG pH ABG pCO2 ABG pO2 ABG HCO3 ABG Total CO2 ABG O2 Saturation ABG Base Excess FiO2 Sodium 154 H D Potassium 3.7 Chloride 108 H Carbon Dioxide 32 BUN 11 Creatinine 0.70 Estimated GFR > 60.0 BUN/Creatinine Ratio 15.7 Glucose 82 Lactate 3.1 H Calcium 8.4 Total Bilirubin 0.5 AST 35 ALT 35 Alkaline Phosphatase 48 Total Protein 7.7 Albumin 4.4 Globulin 3.3 Albumin/Globulin Ratio 1.3 Salicylates < 1.0 Urine Opiates Screen Ur Oxycodone Screen Urine Methadone Screen Acetaminophen < 10 L Ur Barbiturates Screen U Tricyclic Antidepress Ur Phencyclidine Scrn Ur Amphetamines Screen U Methamphetamines Scrn Ur MDMA Scrn (Ecstasy) U Benzodiazepines Scrn Urine Cocaine Screen U Marijuana (THC) Screen Ethyl Alcohol 439 H* 02/15/18 02/15/18 13:45 Unknown WBC RBC Hgb Hct MCV MCH MCHC RDW Plt Count Neut % (Auto) Lymph % (Auto) [place] % (Auto) Eos % (Auto) Baso % (Auto) Neut # (Auto) ABG pH 7.29 L ABG pCO2 54.0 H ABG pO2 213 H ABG HCO3 26 ABG Total CO2 28 H ABG O2 Saturation 100 ABG Base Excess 0.0 FiO2 50 Sodium Potassium Chloride Carbon Dioxide BUN Creatinine Estimated GFR BUN/Creatinine Ratio Glucose Lactate Calcium Total Bilirubin AST ALT Alkaline Phosphatase Total Protein Albumin Globulin Albumin/Globulin Ratio Salicylates Urine Opiates Screen Negative Ur Oxycodone Screen Negative Urine Methadone Screen Negative Acetaminophen Ur Barbiturates Screen Negative U Tricyclic Antidepress Negative Ur Phencyclidine Scrn Negative Ur Amphetamines Screen Negative U Methamphetamines Scrn Negative Ur MDMA Scrn (Ecstasy) Negative U Benzodiazepines Scrn Negative Urine Cocaine Screen Negative U Marijuana (THC) Screen Positive H Ethyl Alcohol Assessment & Plan Plan: Assessment/Plan Narrative: 28-year-old male with past medical history of depression, alcoholism, eating disorder presented to ED with acute respiratory failure secondary to alcohol overdose. Intubated at the scene and transferred to ICU for furhter management. 1. Acute Respiratory failure due to Alcohol intoxication - Intubated at the scene - CXR with no acute findings, CTH negative - Continue Full vent management, pulmonary toiletting - Continue Propofol and titrate down as appropriate with goal to wake patient up in the morning 2. Hypernatremia - Likely due to alcohol intoxication - Start D5W @100cc/hr - Monitor Na levels Q6H and adjust accordningly 3. Alcohol intoxication - ETOH level 400+ - patient is intubated, will continue to monitor - Will initiate Banana bag tomorrow 4. Depression - Will reassess and restart medications once patient is awake FASTHUG Dispo: Patient is here with intoxication. Will wait until he wakes up and attempt sedation holiday and VLT Quality VTE Deep Vein Thrombosis/Pulmonary Embolism Present on Admission: No
[2018-02-15 16:35] LABS: HCO3 ABG 24 mmol/L (23-27); PO2 ABG 144 mmHg (80-105); pH ABG 7.47 (7.35-7.45)
[2018-02-15 16:36] LABS: Fractionated Inspired Oxygen 30; Oxygen Saturation ABG 99 % (95-100); TCO2 ABG 25 mmol/L (23-27)
[2018-02-15 17:45] LABS: Reflexed Lactate in 2 Hours Y
[2018-02-15 18:16] LABS: Lactate 2HR (Lactic Acid Rflx) 3.5 mmol/L (0.7-2.1)
[2018-02-15] MEDS: LORazepam 2 MG/ML SYRINGE IV ×2 (18:50→21:44)
--- NOTE | 2018-02-15 19:35 | RT ---
ETT ADVANCED FROM 23 TO 26 CM MORIAH AT LIP. NEW APPROX. POSITION ABOVE SREE NOW 2 CM. BILATERAL BREATH SOUNDS NOTED POST CHANGE.
[2018-02-15] MEDS: PROPOFOL 1,000 MG/100 ML VIAL 19.062 MG IV (19:57)
[2018-02-15] MEDS: ALBUTEROL 2.5 MG/3 ML NEB (ADULT) INH (20:05)
[2018-02-15 23:28] LABS: BUN Creatinine Ratio 15.7 (6-22); Blood Urea Nitrogen 11 mg/dL (9-20); Calcium 8.3 mg/dL (8.4-10.2); Carbon Dioxide 24 mmol/L (22-32); Chloride 107 mmol/L (98-107); Estimated Glomerular Filt Rate > 60.0 mL/min (>60); Glucose 86 mg/dL (70-100); HEMOLYSIS < 15 (0-50); Potassium 3.3 mmol/L (3.4-5.1); Sodium 148 mmol/L (137-145)
[2018-02-16] VITALS (18 sets, daily range): BP systolic 105–148; BP diastolic 53–95; PULSE 70–127; RESP 11–20; TEMP 36.7–37.8; O2SAT 96–100
[2018-02-16] MEDS: DEXTROSE 5% WATER 1,000 ML 100 ML IV (01:04)
[2018-02-16] MEDS: PROPOFOL 1,000 MG/100 ML VIAL 19.062 MG IV (01:04)
[2018-02-16] MEDS: LORazepam 2 MG/ML SYRINGE IV ×2 (02:20→08:25)
[2018-02-16 05:28] LABS: Add Manual Diff / Slide Review NO; Basophils Percent Auto 0.5 % (0-2); Eosinophils Percent Auto 0.6 % (2-4); Hematocrit 40.6 % (41-53); Hemoglobin 13.8 g/dL (13.5-17.5); Lymphocytes Percent Auto 18.8 % (25-40); Mean Corpuscular HGB Conc 34.1 % (30-36); Mean Corpuscular Volume 93.9 fL (80-100); Neutrophils Absolute Auto 5400 /uL (3000-5900); Neutrophils Percent Auto 72.1 % (50-75); Platelet Count 140 X10^3/uL (150-400); Red Blood Cell Count 4.32 X10^6/uL (4.5-5.9); Red Cell Distribution Width 15.4 % (11.6-14.8); White Blood Cell Count 7.5 X10^3/uL (4.5-11.0)
[2018-02-16 05:33] LABS: Alanine Aminotransferase 29 IU/L (21-72); Albumin 3.8 g/dL (3.5-5.0); Albumin Globulin Ratio 1.4 (1.0-2.8); Alkaline Phosphatase 36 U/L (38-126); Aspartate Aminotransferase 30 IU/L (17-59); BUN Creatinine Ratio 18.6 (6-22); Bilirubin Total 0.4 mg/dL (0.2-1.3); Blood Urea Nitrogen 13 mg/dL (9-20); Calcium 8.8 mg/dL (8.4-10.2); Carbon Dioxide 25 mmol/L (22-32); Chloride 104 mmol/L (98-107); Estimated Glomerular Filt Rate > 60.0 mL/min (>60); Globulin 2.8 g/dL (1.7-4.1); Glucose 80 mg/dL (70-100); HEMOLYSIS < 15 (0-50); Potassium 3.1 mmol/L (3.4-5.1); Sodium 145 mmol/L (137-145); Total Protein 6.6 g/dL (6.3-8.2)
[2018-02-16] MEDS: PROPOFOL 1,000 MG/100 ML VIAL 42.36 MG IV (06:07)
--- NOTE | 2018-02-16 06:37 | PC.NURSE ---
Patient is vented with FIO2 30% TV 500 PEEP 5 RR 16, SpO2 94-99% Shift started with propofol infusing at 45mcg/min, had to titrate up to 100-120mcg/min at 0230 to keep patient from pulling ETT out. 2mg IV Ativan ineffective. NGT patent to LIS put out 200ml dark bile fluid. 150mg cloudy yellow urine from Isabel. See vitals trends and electrical and radio mechanic notes.
[2018-02-16] MEDS: PROPOFOL 1,000 MG/100 ML VIAL 50.832 MG IV (08:29)
[2018-02-16] MEDS: PANTOPRAZOLE 40 MG VIAL 20 MG IV (08:30)
[2018-02-16] MEDS: ENOXAPARIN 40 MG/0.4 ML SYRINGE SUBCUT (08:30)
--- NOTE | 2018-02-16 09:37 | RT ---
Weaning trials started. Placed to CPAP
--- NOTE | 2018-02-16 09:54 | RT ---
Addendum entered by Ronnie Cantu, RT 02/16/18 09:55: Pt remains on room air, O2 sats 94%, pulse 117. RR 14. Lungs clear. Pt coughs up large sero-sang fluid, and also had aldair bleeding from L nare. Nurse Viki applied direct ressure and nare packing. Pt is alert and responds appropriately. No c/o dyspnea. Original Note: Extubated to room air without complications, verbal order, Dr. Barrios called into Nurse Drew.
--- NOTE | 2018-02-16 10:21 | PC.NURSE ---
Addendum entered by Luisa Connell R.N. 02/16/18 14:30: Pt reported I am leaving and going to walk out. Reexplained that we could not allow him to leave - acknowledged understanding but continued to assert his need to leave. Dr. Barrios called and notified of the above and gave VTO to hold patient at 1425. Pt exited ICU, information security associate following out hospital. Coordinator Willa RN notified and 911 called 1430. Pt IV in place to left AC upon leaving ICU. Original Note: Addendum entered by Luisa Connell R.N. 02/16/18 13:10: Patient pacing in room requesting to leave, stating he does not want to get sent to inpatient and expressing I'm going to leave, I'm not staying . Pt tore off tele leads and pulse oximetry. Dr. Barrios called at this time (approx. 1030) to request eval of patient and to notify of removal of tele leads/pulse ox - no new orders given at that time with instructions to not allow pt to leave. Care management (Mariely CHAU) to bedside to assess. Increasing agitation visualized and anxiety reported by patient around 1145 - CIWA score 8 at this time and Ativan 1 mg IV administered. Pt not medically stable per Dr. Barrios - this information relayed to pt from MD at bedside. Pt calm and cooperative currently. Original Note: Day Shift Note Pt sedated and ventilated on AM assessment, pulling and fighting, attempting to pull out tubes. Restraints in place to BUEs, propofol gtt increased to 120 mcg/kg/min and 2 mg Ativan administered. Sedation vacation and breathing trial done at bedside with RT this morning. Pt mouthing words around tube and shaking head or nodding in response to questions. Pt extubated at [address] Barrios, NG tube d/c'd at this time as well. Jose Juan blood to left nare - packed and pressure held. Bleeding has now stopped. Oxygen sats 98% RA. Speech is clear. Isabel catheter d/c'd per patient request at 1000. Restraints removed. Cooperative at this time but mildly restless, CIWA 3, requesting to see MD and requesting food. Call light within in reach, using intermittently. Bed alarm on.
[2018-02-16] MEDS: LORazepam 2 MG/ML SYRINGE 1 MG IV (11:48)
--- NOTE | 2018-02-16 15:52 | PC.NURSE ---
1455: Patient arrives with [employer], calm and cooperative Mariely CHAU speaking with patient and patient reports he told nursing staff in ICU he was leaving, they did not stop him Patient has IV to L forearm intact 1500: Patient calm and cooperative, changed into hospital disposable scrubs while [employer] standing by 1505: Pt urinated into urinal and added water as sample was cold temperature 1515: placed patient's belongings in a bag and RN told him as long as he would leave bags alone could keep them by the door and keep door open as long as he didn't try to leave. 1520: Brought patient 3 half turkey sandwiches and a cup of coffee, patient's arrived and sat and visited with patient for awhile 1525: left ER 1545: Patient came out of room and RN told him if he tried to leave we would have to closed the door 1550: Patient came of of room and tried to run out the back ambulance bay doorway, we intercepted and escorted patient back to room and shut the door to retain him. Patient began to try to remove coban as he had stated he wanted his IV removed numerous times. He had previously hit the wall and with a chair in the room and a metal bed frame RN and DR felt that we needed to remove the chair and bed so called [employer] for standby assist to create safety for removal of those items.
--- NOTE | 2018-02-16 16:13 | PC.NURSE ---
Patient walking around room and now is laying on mattress
--- NOTE | 2018-02-16 16:18 | PC.NURSE ---
COORDINATOR NOTE: THIS CHARGE NURSE WAS NOTIFIED THIS MORNING APPROXIMATELY NOON, THAT PATIENT WAS STATING THAT HE WAS GOING TO LEAVE AMA BY ICU STAFF. THIS RN PRESENTED TO ICU W/ KILO FROM . HE WAS CONVERSANT, CARRIED CLEAR AND COHERENT CONVERSATION AND AMBULATORY IN RM. HE RELUCTANTLY AGREED TO STAY AT THAT TIME. KILO AND Medardo SPOKE W/ CMP OVER SPEAKER PHONE, AND WAS INSTRUCTED THAT BECAUSE PATIENT WAS NOT MEDICALLY STABLE PER PHYSICIAN, AND THAT THEY ARE UNABLE TO SEE PATIENT UNTIL HE IS MEDICALLY STABLE, THAT THE DOCTOR WOULD NEED TO ORDER A MEDICAL HOLD AND THE POLICE WOULD NEED TO BE CALLED TO BRING THE PATIENT BACK TO HOSPITAL INVOLUNTARILY PER [place] LAW. DR. BERMUDEZ UPDATED ON SAME, HE AGREES TO PLACE MEDICAL HOLD IF PATIENT INDEED TRIES TO LEAVE. PATIENT UPDATED ON SAME PER DR. BERMUDEZ WHO SAW PATIENT, PER KILO IN , AND PER NURSING STAFF. HE CONFIRMED UNDERSTANDING. KILO AND Medardo BOTH UPDATED BENJY JEFFERS ABOUT THE IMPLICATIONS NOTED ABOVE. AT 1440 THIS NURSE WAS NOTIFIED THAT PATIENT HAD JUST LEFT ICU, DR. BERMUDEZ NOTIFIED IMMEDIATELY AND MEDICAL HOLD ORDER OBTAINED VERBALLY. POLICE WERE NOTIFIED AND INSTRUCTED TO BRING PATIENT TO ED RM 13, PADDED PSYCH ROOM FOR MD ASSESSMENT. PATIENT DENIED USING ILLICIT DRUGS OR DRINKING ALCOHOL. HIS IV WAS STILL IN PLACE TO LEFT AC. HE WAS CONVERSANT WITH CLEAR SPEECH AND AMBULATORY WHEN HE WAS BROUGHT IN BY POLICE OFFICERS. DR. HINOJOSA IN ER, AND DR. BERMUDEZ DISCUSSED POC. AN AGREEMENT WAS MADE FOR NOW THE THE SAFEST PLACE TO KEEP THE PATIENT WAS IN THE ED. 1:1 SITTER WAS CALLED IN, AND THE DOOR WILL BE CLOSED AND LOCKED IF PATIENT LEAVES THE ROOM. HE CONFIRMS UNDERSTANDING OF THIS. DR. BERMUDEZ WILL CONTINUE CARE OF PATIENT AND CONTINUE TO WRITE THE ORDERS INPATIENT STATUS, BUT HIS PHYSICAL LOCATION WILL BE IN RM 13, ED. BOTH MELIZA ARAYA, UNDERGROUND DISTRIBUTION ENGINEER, AND GLEN HAY NOTIFIED OF THE ABOVE.
[2018-02-16 16:20] LABS: Add Manual Diff / Slide Review NO; Basophils Percent Auto 0.5 % (0-2); Eosinophils Percent Auto 0.1 % (2-4); Hemoglobin 14.2 g/dL (13.5-17.5); Lymphocytes Percent Auto 10.6 % (25-40); Mean Corpuscular HGB Conc 34.7 % (30-36); Mean Corpuscular Hemoglobin 32.4 PG (26-34); Mean Corpuscular Volume 93.6 fL (80-100); Monocytes Percent Auto 10.5 % (3-14); Neutrophils Absolute Auto 10300 /uL (3000-5900); Neutrophils Percent Auto 78.3 % (50-75); Platelet Count 156 X10^3/uL (150-400); Red Blood Cell Count 4.38 X10^6/uL (4.5-5.9); Red Cell Distribution Width 14.8 % (11.6-14.8); White Blood Cell Count 13.1 X10^3/uL (4.5-11.0)
--- NOTE | 2018-02-16 16:26 | PM.PN.1 ---
Subjective Date Patient Seen: 02/16/18 Time Patient Seen: 07:27 Interval history: History of present illness Follow-up on patient admitted with acute respiratory failure secondary to alcohol intoxication. Patient was intubated in the field admitted to [facility] February 15 with continued ventilator support. In a.m. today patient was assessed by respiratory therapy and weaning parameters were suitable. Patient was extubated in a.m. today. In late afternoon today patient left against medical advice. In accordance with the [employer] law patient was supposed to be evaluated by State appointed personnel who would determine if patient would require further inpatient detox and evaluation. Has such, patient was brought back to the hospital by the police department further treatment. Patient will be assessed with the CIWA protocol and Ativan given as needed. State personnel to see the patient tomorrow in a.m and determine if patient will need involuntary placement again. Patient is clearly demonstrated a danger to himself with excessive alcohol consumption to the point that he is nonresponsive and shallow breathing noted. Review of systems In a.m. today I saw the patient after extubation and he had no complaints of chest pain or shortness of breath or nausea. No complaint of tremor Exam Vital Signs (past 8 hours): - 02/16/18 08:32 02/16/18 09:30 02/16/18 15:15 Pulse Rate 82 95 H 127 H Respiratory Rate 16 12 18 Blood Pressure 123/71 120/67 Blood Pressure [Right Arm] 148/95 H Pulse Oximetry 100 96 97 Fraction of Inspired Oxygen 40 Oxygen Delivery Method Room Air Oxygen Flow Rate 100 Narrative Exam Narrative: General appearance patient is awake and alert no apparent distress at rest Psychiatric well oriented to time place and person mood was pleasant during the time of my exam with patient patient was cooperative and polite Respiratory fairly clear to auscultation no wheezes no crackles good airflow Cardiovascular regular rate rhythm no murmurs +3 pulses to extremities GI benign soft nontender positive bowel sounds no distension no guarding no bruits Neurologic no focal neurologic changes cranial nerves 2-12 grossly intact no tremors are noted on exam Musculoskeletal motor strength is noted 5/5 no clubbing is noted range of motion is normal Objective Labs Result Diagrams: 02/16/18 16:05 02/16/18 04:58 Labs: Laboratory Results - last 24 hr 09/29/18 09/29/18 09/29/18 14:30 16:25 18:00 WBC RBC Hgb Hct MCV MCH MCHC RDW Plt Count Neut % (Auto) Lymph % (Auto) [place] % (Auto) Eos % (Auto) Baso % (Auto) Neut # (Auto) ABG pH 7.47 H ABG pCO2 33.0 L ABG pO2 144 H ABG HCO3 24 ABG Total CO2 25 ABG O2 Saturation 99 ABG Base Excess 0.0 FiO2 30 Sodium Potassium Chloride Carbon Dioxide BUN Creatinine Estimated GFR BUN/Creatinine Ratio Glucose Lactate 3.5 H Calcium Total Bilirubin AST ALT Alkaline Phosphatase Total Protein Albumin Globulin Albumin/Globulin Ratio Nasal Screen MRSA (PCR) Negative for mrsa 02/15/18 02/16/18 02/16/18 23:13 04:58 04:58 WBC 7.5 D RBC 4.32 L Hgb 13.8 Hct 40.6 L MCV 93.9 MCH 32.0 MCHC 34.1 RDW 15.4 H Plt Count 140 L Neut % (Auto) 72.1 D Lymph % (Auto) 18.8 L D [place] % (Auto) 8.0 Eos % (Auto) 0.6 L Baso % (Auto) 0.5 Neut # (Auto) 5400 ABG pH ABG pCO2 ABG pO2 ABG HCO3 ABG Total CO2 ABG O2 Saturation ABG Base Excess FiO2 Sodium 148 H 145 Potassium 3.3 L 3.1 L Chloride 107 104 Carbon Dioxide 24 25 BUN 11 13 Creatinine 0.70 0.70 Estimated GFR > 60.0 > 60.0 BUN/Creatinine Ratio 15.7 18.6 Glucose 86 80 Lactate Calcium 8.3 L 8.8 Total Bilirubin 0.4 AST 30 ALT 29 Alkaline Phosphatase 36 L Total Protein 6.6 Albumin 3.8 Globulin 2.8 Albumin/Globulin Ratio 1.4 Nasal Screen MRSA (PCR) 02/16/18 16:05 WBC 13.1 H D RBC 4.38 L Hgb 14.2 Hct 41.0 MCV 93.6 MCH 32.4 MCHC 34.7 RDW 14.8 Plt Count 156 Neut % (Auto) 78.3 H Lymph % (Auto) 10.6 L [place] % (Auto) 10.5 Eos % (Auto) 0.1 L Baso % (Auto) 0.5 Neut # (Auto) 03204 H ABG pH ABG pCO2 ABG pO2 ABG HCO3 ABG Total CO2 ABG O2 Saturation ABG Base Excess FiO2 Sodium Potassium Chloride Carbon Dioxide BUN Creatinine Estimated GFR BUN/Creatinine Ratio Glucose Lactate Calcium Total Bilirubin AST ALT Alkaline Phosphatase Total Protein Albumin Globulin Albumin/Globulin Ratio Nasal Screen MRSA (PCR) Assessment & Plan Plan: Assessment/Plan Narrative: Assessment/Plan Narrative: 1. Acute Respiratory failure due to Alcohol intoxication - Intubated in the field - CXR with no acute findings - patient was extubated in a.m. today. - will provide CIWA protocol as indicated for alcohol withdrawal syndrome 2. Hypernatremia - likely reflective of dehydration state - D5W @100cc/hr - patient drinking fluids adequately this morning. IV fluids changed to saline lock 3. Alcohol intoxication - ETOH level 400+ on admission - continue banana bag daily 4. Depression - patient noted with poor insight and impulsive - patient may require antidepressant therapy to further manage - will await assessment by state-appointed person out to evaluate the patient tomorrow in a.m. Time devoted for the care of the patient today approximately 65 min including numerous conversations with nursing staff case management and ER physician Quality VTE Deep Vein Thrombosis/Pulmonary Embolism Present on Admission: No
[2018-02-16 16:28] LABS: Urine Amphetamines Negative (Negative); Urine Barbiturates Negative (Negative); Urine Benzodiazepines Positive (Negative); Urine Cocaine Negative (Negative); Urine MDMA Negative (Negative); Urine Methadone Negative (Negative); Urine Methamphetamines Negative (Negative); Urine Morphine/Opi cutoff 2000 Negative (Negative); Urine Oxycodone Negative (Negative); Urine Phencyclidine Negative (Negative); Urine Tetrahydrocannabinol Positive (Negative); Urine Tricyclic Antidepressant Negative (Negative)
[2018-02-16 16:30] LABS: Alanine Aminotransferase 25 IU/L (21-72); Albumin 4.6 g/dL (3.5-5.0); Albumin Globulin Ratio 1.5 (1.0-2.8); Alkaline Phosphatase 44 U/L (38-126); Aspartate Aminotransferase 35 IU/L (17-59); BUN Creatinine Ratio 24.3 (6-22); Bilirubin Total 1.1 mg/dL (0.2-1.3); Blood Urea Nitrogen 17 mg/dL (9-20); Calcium 9.2 mg/dL (8.4-10.2); Carbon Dioxide 21 mmol/L (22-32); Chloride 104 mmol/L (98-107); Estimated Glomerular Filt Rate > 60.0 mL/min (>60); Ethanol (ETOH) 123 mg/dL; Glucose 103 mg/dL (70-100); HEMOLYSIS 18 (0-50); Potassium 3.3 mmol/L (3.4-5.1); Sodium 145 mmol/L (137-145); Total Protein 7.6 g/dL (6.3-8.2)
--- NOTE | 2018-02-16 16:30 | PC.NURSE ---
Patient laying on the mattress
--- NOTE | 2018-02-16 16:30 | PC.NURSE ---
Since patient is on ICU tracker with Dr. Barrios as his physician called ICU and requested that a RN order a dinner tray for patient, they said they would
--- NOTE | 2018-02-16 16:37 | P.PN_ITS ---
Subjective Date Patient Seen: 02/16/18 Time Patient Seen: 07:27 Interval history: History of present illness Follow-up on patient admitted with acute respiratory failure secondary to alcohol intoxication. Patient was intubated in the field admitted to [facility] February 15 with continued ventilator support. In a.m. today patient was assessed by respiratory therapy and weaning parameters were suitable. Patient was extubated in a.m. today. In late afternoon today patient left against medical advice. In accordance with the [employer] law patient was supposed to be evaluated by State appointed personnel who would determine if patient would require further inpatient detox and evaluation. Has such, patient was brought back to the hospital by the police department further treatment. Patient will be assessed with the CIWA protocol and Ativan given as needed. State personnel to see the patient tomorrow in a.m and determine if patient will need involuntary placement again. Patient is clearly demonstrated a danger to himself with excessive alcohol consumption to the point that he is nonresponsive and shallow breathing noted. Review of systems In a.m. today I saw the patient after extubation and he had no complaints of chest pain or shortness of breath or nausea. No complaint of tremor Exam Vital Signs (past 8 hours): - 02/16/18 08:32 02/16/18 09:30 02/16/18 15:15 Pulse Rate 82 95 H 127 H Respiratory Rate 16 12 18 Blood Pressure 123/71 120/67 Blood Pressure [Right Arm] 148/95 H Pulse Oximetry 100 96 97 Fraction of Inspired Oxygen 40 Oxygen Delivery Method Room Air Oxygen Flow Rate 100 Narrative Exam Narrative: General appearance patient is awake and alert no apparent distress at rest Psychiatric well oriented to time place and person mood was pleasant during the time of my exam with patient patient was cooperative and polite Respiratory fairly clear to auscultation no wheezes no crackles good airflow Cardiovascular regular rate rhythm no murmurs +3 pulses to extremities GI benign soft nontender positive bowel sounds no distension no guarding no bruits Neurologic no focal neurologic changes cranial nerves 2-12 grossly intact no tremors are noted on exam Musculoskeletal motor strength is noted 5/5 no clubbing is noted range of motion is normal Objective Labs Result Diagrams: 02/16/18 16:05 02/16/18 04:58 Labs: Laboratory Results - last 24 hr 09/29/18 09/29/18 09/29/18 14:30 16:25 18:00 WBC RBC Hgb Hct MCV MCH MCHC RDW Plt Count Neut % (Auto) Lymph % (Auto) [place] % (Auto) Eos % (Auto) Baso % (Auto) Neut # (Auto) ABG pH 7.47 H ABG pCO2 33.0 L ABG pO2 144 H ABG HCO3 24 ABG Total CO2 25 ABG O2 Saturation 99 ABG Base Excess 0.0 FiO2 30 Sodium Potassium Chloride Carbon Dioxide BUN Creatinine Estimated GFR BUN/Creatinine Ratio Glucose Lactate 3.5 H Calcium Total Bilirubin AST ALT Alkaline Phosphatase Total Protein Albumin Globulin Albumin/Globulin Ratio Nasal Screen MRSA (PCR) Negative for mrsa 02/15/18 02/16/18 02/16/18 23:13 04:58 04:58 WBC 7.5 D RBC 4.32 L Hgb 13.8 Hct 40.6 L MCV 93.9 MCH 32.0 MCHC 34.1 RDW 15.4 H Plt Count 140 L Neut % (Auto) 72.1 D Lymph % (Auto) 18.8 L D [place] % (Auto) 8.0 Eos % (Auto) 0.6 L Baso % (Auto) 0.5 Neut # (Auto) 5400 ABG pH ABG pCO2 ABG pO2 ABG HCO3 ABG Total CO2 ABG O2 Saturation ABG Base Excess FiO2 Sodium 148 H 145 Potassium 3.3 L 3.1 L Chloride 107 104 Carbon Dioxide 24 25 BUN 11 13 Creatinine 0.70 0.70 Estimated GFR > 60.0 > 60.0 BUN/Creatinine Ratio 15.7 18.6 Glucose 86 80 Lactate Calcium 8.3 L 8.8 Total Bilirubin 0.4 AST 30 ALT 29 Alkaline Phosphatase 36 L Total Protein 6.6 Albumin 3.8 Globulin 2.8 Albumin/Globulin Ratio 1.4 Nasal Screen MRSA (PCR) 02/16/18 16:05 WBC 13.1 H D RBC 4.38 L Hgb 14.2 Hct 41.0 MCV 93.6 MCH 32.4 MCHC 34.7 RDW 14.8 Plt Count 156 Neut % (Auto) 78.3 H Lymph % (Auto) 10.6 L [place] % (Auto) 10.5 Eos % (Auto) 0.1 L Baso % (Auto) 0.5 Neut # (Auto) 09789 H ABG pH ABG pCO2 ABG pO2 ABG HCO3 ABG Total CO2 ABG O2 Saturation ABG Base Excess FiO2 Sodium Potassium Chloride Carbon Dioxide BUN Creatinine Estimated GFR BUN/Creatinine Ratio Glucose Lactate Calcium Total Bilirubin AST ALT Alkaline Phosphatase Total Protein Albumin Globulin Albumin/Globulin Ratio Nasal Screen MRSA (PCR) Assessment & Plan Plan: Assessment/Plan Narrative: Assessment/Plan Narrative: 1. Acute Respiratory failure due to Alcohol intoxication - Intubated in the field - CXR with no acute findings - patient was extubated in a.m. today. - will provide CIWA protocol as indicated for alcohol withdrawal syndrome 2. Hypernatremia - likely reflective of dehydration state - D5W @100cc/hr - patient drinking fluids adequately this morning. IV fluids changed to saline lock 3. Alcohol intoxication - ETOH level 400+ on admission - continue banana bag daily 4. Depression - patient noted with poor insight and impulsive - patient may require antidepressant therapy to further manage - will await assessment by state-appointed person out to evaluate the patient tomorrow in a.m. Time devoted for the care of the patient today approximately 65 min including numerous conversations with nursing staff case management and ER physician Quality VTE Deep Vein Thrombosis/Pulmonary Embolism Present on Admission: No
--- NOTE | 2018-02-16 16:44 | CM.SWNOTE ---
DCP/BLADE ALIGNER Note: Reviewed chart. Patient is a 28yr old male admitted to I.. with respiratory failure secondary to alcohol abuse. PCP listed is Dr. Bains. Primary payor is Rocío. Patient known to BLADE ALIGNER from previous ED and inpatient hospitalizations with same complaints (see notes). Patient with several involuntary placements under [employer] for continued danger to himself because of alcoholism. Patient found unresponsive by spouse yesterday and EMS dispatched to residence. Patient requiring intubation for airway protection. Discussed case with MD/Dr. Barrios in AM rounds. He reports that patient will be extubated this AM. Respiratory confirms. Dr. Barrios provided with brief history of the attempts that have been made to support patient in obtaining sobriety. Dr. Barrios aware that [facility] will need to be notified when patient medically stable for assessment on whether or not patient will need to be detained. BLADE ALIGNER called to ICU to meet with patient this AM after rounds. Patient had been extubated and reports to RN that he is ready to go. BLADE ALIGNER arrived and patient alert and oriented pacing in the room/hallway. Patient reports that he has plan to follow up as outpatient with [facility] in [place] on 02-18 at noon for intensive outpatient treatment. BLADE ALIGNER unable to confirm today. Patient's spouse not in room and patient reports that he is unsure of her phone number. Apparently spouse recently just got new phone. RN/Anneliese at bedside during interview. She reports that she will attempt to get spouse's phone number if she arrives and notify BLADE ALIGNER. Patient requesting to see the MD so he can leave. BLADE ALIGNER and RN/Willa spoke together with Dr. Barrios about patient's wishes to be discharged and that he would like to see him. Dr. Barrios reports that he will see him soon. BLADE ALIGNER updated Dr. Barrios that [facility] cannot be dispatched to I.. until patient is deemed medically stable by MD. In the meantime, BLADE ALIGNER spoke with Rach/LORENA at [facility] re: above. Rach confirms that they will not come out to do assessment until medical stability confirmed. Regardless, of whether or not patient wants to leave. Rach suggests obtaining medical hold from MD if patient tries to leave. Dr. Barrios, BLADE ALIGNER, and RN all met with patient to discuss d/c planning and next steps. Dr. Barrios notified patient that he was not comfortable with deeming patient medically stable today therefore, he would not. MD requests that patient be 8hr without Ativan prior to clearance. At time of meeting patient agreeable to stay. Notified MD that [facility] assessment under Rash[employer]'s Law will not occur until medical clearance provided. He is aware and agreeable to place medical hold if patient attempts to leave. At approximately 2:00pm patient decided to leave I.H. BLADE ALIGNER and staff attempted to encourage patient to stay but to no avail. [place] [employer] called and security notified. Patient left with IV and cardiac leads in place. [employer] found patient within about 20 minutes of his departure and returned him to I. Emergency Department. Staff and /Sandeep updated on all of the above. All updated were Sherry Aguirre and Dalila Reyes via telephone. Placed another call to [facility] spoke again with Rach. He suggests keeping patient in Emergency Department if possible. [facility] staff in agreement secondary to safety. BLADE ALIGNER briefly interviewed patient upon his return and he denies using any substances when he left. Patient reports that he just went to his residence. Hopeful that urine/tox screen will be obtained. Patient now in Emergency Department room#13 for safety. Patient made aware that if he tries to leave the door will be closed and locked. Patient reports that he is claustrophobic. He agrees to stay in room. Dr. Hopkins very familiar with this patient and has spoken to Dr. Barrios about next steps. Dr. Barrios reports that he will follow patient in the Emergency Department. Dr. Hopkins discussed medical clearance from her previous experiences with this patient and Rashad's Law. Dr. Barrios reported to her that he will come see patient. P: Awaiting medical clearance for Mental Health evaluation crisis line# . All instructed to call when able. KANDI Dickerson
--- NOTE | 2018-02-16 16:45 | PC.NURSE ---
Patient continues to lay on mattress calmly
--- NOTE | 2018-02-16 16:58 | PC.NURSE ---
Patient laying on mattress
--- NOTE | 2018-02-16 17:03 | PC.NURSE ---
pt escorted by apd to department. pt left ama from icu. reports from charge nurse that pt is under the [place] law, due to pts non compliance to stay in room, he is to be moved to room 13 in ED for seclusion. pt arrives calm and cooperative. pt changed clothes. pt expresses concern for door being closed, pt verbally agreed to stay in room. pt's belongings placed in bag with his sticker/label on it. door remains open, and sitter at nurses station.
--- NOTE | 2018-02-16 17:12 | PC.NURSE ---
pt's reported to admitting staff pt told her he was going to run out. few minutes later pt confronted about this information. pt again verbalized he would not, and the door was left open. I left the pt and pt attempted to run out of ambulance door. pt escorted with some resistance back to room 13, at that time door was closed and seclusion was initiated, pt then began picking at iv site, and eventually pulled iv out, and was c/o bleeding. pt unpredictable. [employer] phoned. visualized pt via camera and door until apd arrived. [employer] arrived pt cooperated with them, bed and objects in room removed, bandage placed on pt's arm. urine obtained and blood drawn. Seclusion initiated. Dr ray notified via telephone, by dr sandoval.
--- NOTE | 2018-02-16 17:17 | PC.NURSE ---
Patient laying quietly on mattress
--- NOTE | 2018-02-16 17:29 | PC.NURSE ---
Patient laying quietly on bed
[2018-02-16] MEDS: chlordiazePOXIDE 10 MG CAPSULE PO ×2 (17:30→20:48)
--- NOTE | 2018-02-16 17:49 | PC.NURSE ---
Brought dinner tray to patient and he is sitting on bed eating it
--- NOTE | 2018-02-16 18:16 | PC.NURSE ---
Brought patient 1/2 tuna sandwich and 1/2 egg salad sandwich after he ate all his dinner from tray
--- NOTE | 2018-02-16 18:32 | PC.NURSE ---
Patient wanted to call so am going to make call for patient to update her on his status. Dr. Barrios is keeping patient overnight for obs
--- NOTE | 2018-02-16 18:36 | PC.NURSE ---
Spoke with patient's and she stated she will be coming in to visit and bring him some food
--- NOTE | 2018-02-16 19:06 | PC.NURSE ---
of patient came by with some food for patient and visited for short time with patient, food was left in room with patient it is in plastic, was checked for safety and plastic spoon given to patient to eat with
--- NOTE | 2018-02-16 19:19 | PC.NURSE ---
Gave patient a raven ashley and ice water, patient asked us to refrigerate his food that his brought him
[2018-02-16] MEDS: BUSPIRONE 5 MG TABLET 10 MG PO (20:48)
--- NOTE | 2018-02-16 21:47 | PC.NURSE ---
very restless, irritable, constently pacing up to the door
--- NOTE | 2018-02-16 22:00 | PC.NURSE ---
Pt restless, in room pacing and requesting addtional meds for his anxiety. Dr. Barrios notified and gave verbal order for pt to receive 1mg Ativan po.
--- NOTE | 2018-02-16 22:15 | PC.NURSE ---
Pt resting on bed.
[2018-02-16] MEDS: LORazepam 1 MG TABLET PO (22:30)
--- NOTE | 2018-02-16 22:30 | PC.NURSE ---
pt sitting up on bed eating food his brought in for him.
--- NOTE | 2018-02-16 22:48 | PC.NURSE ---
DCR arrived to ED at 2019. At 2049 DCR in room speaking with pt. DCR updated DR. Rg and Dr. Barrios on plan of care and left ED at 2234.
[2018-02-17 01:45] VITALS: BP 125/79; PULSE 86; RESP 16; TEMP 36.9; O2SAT 96
[2018-02-17] MEDS: THIAMINE 100 MG TABLET PO (02:00)
[2018-02-17] MEDS: ACETAMINOPHEN 325 MG TABLET 650 MG PO (02:10)
[2018-02-17] MEDS: NICOTINE 14 PATCH 14 MG TOP (02:10)
[2018-02-17 05:00] VITALS: BP 118/79; PULSE 73; RESP 18; TEMP 37.2; O2SAT 99
[2018-02-17 05:22] LABS: Alanine Aminotransferase 31 IU/L (21-72); Albumin 3.5 g/dL (3.5-5.0); Albumin Globulin Ratio 1.3 (1.0-2.8); Alkaline Phosphatase 40 U/L (38-126); Aspartate Aminotransferase 28 IU/L (17-59); BUN Creatinine Ratio 31.4 (6-22); Bilirubin Total 1.3 mg/dL (0.2-1.3); Blood Urea Nitrogen 22 mg/dL (9-20); Calcium 8.5 mg/dL (8.4-10.2); Carbon Dioxide 28 mmol/L (22-32); Chloride 103 mmol/L (98-107); Estimated Glomerular Filt Rate > 60.0 mL/min (>60); Globulin 2.8 g/dL (1.7-4.1); Glucose 92 mg/dL (70-100); HEMOLYSIS < 15 (0-50); Potassium 3.2 mmol/L (3.4-5.1); Sodium 138 mmol/L (137-145); Total Protein 6.3 g/dL (6.3-8.2)
[2018-02-17 05:25] LABS: Add Manual Diff / Slide Review NO; Basophils Percent Auto 0.7 % (0-2); Eosinophils Percent Auto 1.1 % (2-4); Hematocrit 35.5 % (41-53); Hemoglobin 12.5 g/dL (13.5-17.5); Mean Corpuscular HGB Conc 35.2 % (30-36); Mean Corpuscular Hemoglobin 32.7 PG (26-34); Monocytes Percent Auto 11.4 % (3-14); Neutrophils Absolute Auto 4200 /uL (3000-5900); Neutrophils Percent Auto 67.8 % (50-75); Platelet Count 118 X10^3/uL (150-400); Red Blood Cell Count 3.82 X10^6/uL (4.5-5.9); Red Cell Distribution Width 14.7 % (11.6-14.8); White Blood Cell Count 6.2 X10^3/uL (4.5-11.0)
--- NOTE | 2018-02-17 06:34 | PC.NURSE ---
in room speaking with pt, pt sitting up on stretcher.
--- NOTE | 2018-02-17 07:52 | PC.NURSE ---
pt request shower unable to give shower but offered wash cloth a bucket of water to wash up,toothbrush new scrub to change a warm blanket. pt used the bathroom
--- NOTE | 2018-02-17 08:03 | PC.NURSE ---
pt used the bathroom ,change his clothes ,did wash himself ,brush his hair and ask the nurse for a nicotine patch
--- NOTE | 2018-02-17 08:20 | PC.NURSE ---
breakfast was given
[2018-02-17 08:31] VITALS: BP 126/83; PULSE 91; RESP 16; O2SAT 98
--- NOTE | 2018-02-17 09:01 | PC.NURSE ---
pt request the light be dim and the bathroom light on and open so he can fall asleep ,calm.
--- NOTE | 2018-02-17 09:15 | PC.NURSE ---
came visit and talked to pt,calm and pleasant
--- NOTE | 2018-02-17 09:31 | PC.NURSE ---
talking to RN cooperate and calm, family still in the room,ACADEMIC SUPPORT ASSISTANT outside the room observing
--- NOTE | 2018-02-17 09:45 | PC.NURSE ---
a cup of coffee was given left over food that bring was put on pt refrigerator
--- NOTE | 2018-02-17 10:30 | PC.NURSE ---
laying in bed and calm
--- NOTE | 2018-02-17 11:16 | PC.NURSE ---
came back to visit the pt
--- NOTE | 2018-02-17 11:31 | PC.NURSE ---
pt with his visiting
--- NOTE | 2018-02-17 11:40 | PC.NURSE ---
RN give his meds and water
[2018-02-17] MEDS: BUSPIRONE 5 MG TABLET 10 MG PO (11:41)
[2018-02-17] MEDS: chlordiazePOXIDE 10 MG CAPSULE PO (11:41)
--- NOTE | 2018-02-17 11:45 | PC.NURSE ---
luch was offer,cooperate and calm
--- NOTE | 2018-02-17 11:50 | PC.NURSE ---
in room with pt. Pt given bad of leftover food to eat. Pt ate all of the food on tray
--- NOTE | 2018-02-17 12:00 | PC.NURSE ---
pt sitting calmly on bed with
--- NOTE | 2018-02-17 12:16 | PC.NURSE ---
independent to use the bathroom
--- NOTE | 2018-02-17 12:33 | PC.NURSE ---
calm and talking to his
--- NOTE | 2018-02-17 12:51 | PC.NURSE ---
in the room talking to the pt
--- NOTE | 2018-02-17 13:02 | PC.NURSE ---
physician talking to the pt and his inside the room
--- NOTE | 2018-02-17 13:23 | PC.NURSE ---
Ask for coffee and i give him and he ask for nicotine patch,cooperate and calm talking with his in the room
--- NOTE | 2018-02-17 14:00 | PC.NURSE ---
pt ask for his oatmeal and bpr
--- NOTE | 2018-02-17 14:16 | PC.NURSE ---
calm and cooperate
[2018-02-17] MEDS: buPROPion SR 100 MG TAB PO (14:33)
--- NOTE | 2018-02-17 14:49 | PC.NURSE ---
sitting in his bed calm
[2018-02-17 14:56] VITALS: BP 135/89; PULSE 89; RESP 16; TEMP 37.2; O2SAT 100
--- NOTE | 2018-02-17 15:02 | PC.NURSE ---
[facility] ambulance here to pick u the pt
--- NOTE | 2018-02-17 16:18 | CM.SWNOTE ---
GENETIC SUPERVISOR Note: Spoke with this AM re: d/c planning. Dr. Barrios reports that JACKELINE/Ricky evaluated patient last night and determined that patient is appropriated for detainment. Patient remains in ED/Room #13 until bed found. GENETIC SUPERVISOR placed call to JACKELINE/Vee whom is scheduled today. She reports that once bed is found patient can be transported. Vee requesting that /GENETIC SUPERVISOR call [place] for detainment bed. GENETIC SUPERVISOR called and spoke with [place]. She reports that she has received some information from [facility] staff last evening but needs updated clinical before decision can be made. GENETIC SUPERVISOR gathered all records and faxed to Africa at [place] ([facility]) fax# [phone]. Osman also requesting name/number of Vee VIVEROS, which was provided. It was determined late morning that [facility] will to accept. Accepting BEHAVIORAL THERAPIST is Jarod Mehnaz # [phone]. ED staff to coordinate BLS transport for 3:00pm. GENETIC SUPERVISOR spoke again with Vee/JACKELINE whom came to [facility] to notify patient of his detainment and read him his rights. ED staff and Dr. Barrios aware and agreeable. Ambulance company notified of patient's previous attempts to exit via transport. Patient remains Danger to Self and Others at this time. P: Patient transferring to [facility] in [place] under detainment. KANDI Dickerson
--- NOTE | 2018-02-17 18:44 | PM.DS.1 ---
History of Present Illness Date Patient Seen: 02/17/18 Time Patient Seen: 06:00 Chief complaint: Respiratory Arrest Narrative: Patient is a 28 years of age male that is well-known to [facility] due to his repeated episodes of excessive alcohol intoxication and acute respiratory failure. Patient has repeatedly been intubated and provided ventilator support during these critical times. The patient has been deemed under the [employer] law to require non voluntary placement in a detox facility and close monitoring. Discharge Providers Date of admission: 02/15/18 14:37 Primary care physician: Luigi Bains MD Consults: 02/15/18 14:48 Consult to Dietitian, Adult Routine Comment: Reason For Exam: assessed at high risk, ETOH Consult to Director Of Field Service Routine Comment: 02/15/18 15:07 Consult to Dietitian, Adult Routine Comment: Reason For Exam: Patient on Ventilator and NPO 02/17/18 03:38 Consult to Director Of Field Service Routine Comment: Assist with placement/ DC planning Discharge provider: Vin Barrios MD Summary Discharge Diagnosis: Acute Respiratory failure due to Alcohol intoxication - Intubated in the field - CXR with no acute findings on admission - patient was extubated in a.m. February 16 - CIWA protocol as indicated for alcohol withdrawal syndrome Patient was seen by state appointed franchise sales representative and placed in non voluntary custody for further detox and evaluation in early afternoon February 17 2. Hypernatremia - likely reflective of dehydration state - D5W @100cc/hr - patient was drinking adequate fluids in a.m. on February 16 and serum sodium level was correcting. 3. Alcohol intoxication and dependency - ETOH level 400+ on admission - continue banana bag daily or oral thiamine folic acid and multivitamin 4. Depression - patient noted with poor insight and impulsive - as discussed with the patient and at bedside started patient on Wellbutrin SR 100 mg b.i.d. and Abilify 2 mg daily. Patient and the are well aware of the risk For seizures if patient drinks excessively while on Wellbutrin. The patient and have requested these 2 medications be started for the depression. . Hospital Course: [age] years of age male admitted while on ventilator. Patient was intubated in the field when found in acute respiratory failure due to the excessive alcohol intoxication. Patient was extubated the following morning on February 16. I monitor patient with [place] Ativan protocol. Unfortunately patient both it out of the ICU in the police escorted the patient to the emergency room. The patient remained in the emergency room setting in a special room that can be locked if necessary. When patient tried to leave the emergency room the door was locked and I placed restraining orders every 4 hr provide a locked room. This was continued until patient was seen by the state appointed staff that transfer the patient to the detox facility. Status at Discharge Cognitive/behavioral status at discharge: Patient's mental status was coherent with decision-making capacity at the time of discharge. Patient was well oriented Functional status at discharge: independent ambulation Time Spent with Patient Greater than 30 minutes (50 min to discharge) Exam Vital Signs (past 8 hours): - 02/17/18 14:56 Temperature 98.9 F Pulse Rate 89 Respiratory Rate 16 Blood Pressure 135/89 Pulse Oximetry 100 Fraction of Inspired Oxygen 40 Oxygen Delivery Method Room Air Oxygen Flow Rate 100 Narrative Exam Narrative: General appearance patient is not awake and alert no apparent distress no tremors are noted Psychiatric well oriented to time place person mood was pleasant affect was appropriate Respiratory clear to auscultation with good airflow no wheezes no crackles Cardiovascular regular rate rhythm no murmurs +3 pulses to extremities GI was benign soft nontender positive bowel sounds no distention no bruits Neurologic no focal neurologic changes cranial nerves 2-12 grossly intact no tremors noted at rest or with intention Objective Labs Result Diagrams: 02/17/18 04:58 02/17/18 04:58 Labs: Laboratory Results - last 24 hr 02/17/18 02/17/18 04:58 04:58 WBC 6.2 D RBC 3.82 L Hgb 12.5 L Hct 35.5 L MCV 93.0 MCH 32.7 MCHC 35.2 RDW 14.7 Plt Count 118 L Neut % (Auto) 67.8 Lymph % (Auto) 19.0 L [place] % (Auto) 11.4 Eos % (Auto) 1.1 L Baso % (Auto) 0.7 Neut # (Auto) 4200 Sodium 138 Potassium 3.2 L Chloride 103 Carbon Dioxide 28 BUN 22 H Creatinine 0.70 Estimated GFR > 60.0 BUN/Creatinine Ratio 31.4 H Glucose 92 Calcium 8.5 Total Bilirubin 1.3 AST 28 ALT 31 Alkaline Phosphatase 40 Total Protein 6.3 Albumin 3.5 Globulin 2.8 Albumin/Globulin Ratio 1.3 Discharge Plan Discharge Plan Patient Disposition: Xfer Psychiatric Hosp Other facility: Detox facility Transportation: Ambulance Discharge comment: Patient with multiple admissions for severe intoxication of alcohol which poses risk to self. Under the [place] law patient is being detained in a facility as designated by the [facility] for further treatment including detox. Discharge Med Rec/Prescriptions Prescriptions: No Action acetaminophen 325 mg Tablet 650 mg PO Q6HR PRN (Reason: Pain, Moderate (4-6)) Qty: 30 RF: 0 thiamine HCl (vitamin B1) 100 mg tablet 100 mg PO DAILY Qty: 30 RF: 0 Follow up/Referrals: Luigi Bains MD [Primary Care Provider] - Discharge Orders: Discharge (Order); Ordered 02/17/18 Ordered By: Vin Barrios Provider Discharge Instructions Diet: Diet as Tolerated Liquid consistency: Normal/Thin Visit Report/Discharge Packet Visit Report Forms: Stroke Signs & Symptoms Discharge Data Primary Care Provider: Luigi Bains Attending Provider: Evelyn Estrada Admit Date/Time: 02/15/18 14:37 Discharges patient from system. Discharge Date/Time: 02/17/18 15:00 Quality VTE Deep Vein Thrombosis/Pulmonary Embolism Present on Admission: No
--- NOTE | 2018-02-17 18:52 | P.DS_ITS ---
History of Present Illness Date Patient Seen: 02/17/18 Time Patient Seen: 06:00 Chief complaint: Respiratory Arrest Narrative: Patient is a 28 years of age male that is well-known to [facility] due to his repeated episodes of excessive alcohol intoxication and acute respiratory failure. Patient has repeatedly been intubated and provided ventilator support during these critical times. The patient has been deemed under the [employer] law to require non voluntary placement in a detox facility and close monitoring. Discharge Providers Date of admission: 02/15/18 14:37 Primary care physician: Luigi Bains MD Consults: 02/15/18 14:48 Consult to Dietitian, Adult Routine Comment: Reason For Exam: assessed at high risk, ETOH Consult to Safety Representative Routine Comment: 02/15/18 15:07 Consult to Dietitian, Adult Routine Comment: Reason For Exam: Patient on Ventilator and NPO 02/17/18 03:38 Consult to Safety Representative Routine Comment: Assist with placement/ DC planning Discharge provider: Vin Barrios MD Summary Discharge Diagnosis: Acute Respiratory failure due to Alcohol intoxication - Intubated in the field - CXR with no acute findings on admission - patient was extubated in a.m. February 16 - CIWA protocol as indicated for alcohol withdrawal syndrome Patient was seen by state appointed agency service representative and placed in non voluntary custody for further detox and evaluation in early afternoon February 17 2. Hypernatremia - likely reflective of dehydration state - D5W @100cc/hr - patient was drinking adequate fluids in a.m. on February 16 and serum sodium level was correcting. 3. Alcohol intoxication and dependency - ETOH level 400+ on admission - continue banana bag daily or oral thiamine folic acid and multivitamin 4. Depression - patient noted with poor insight and impulsive - as discussed with the patient and at bedside started patient on Wellbutrin SR 100 mg b.i.d. and Abilify 2 mg daily. Patient and the are well aware of the risk For seizures if patient drinks excessively while on Wellbutrin. The patient and have requested these 2 medications be started for the depression. . Hospital Course: [age] years of age male admitted while on ventilator. Patient was intubated in the field when found in acute respiratory failure due to the excessive alcohol intoxication. Patient was extubated the following morning on February 16. I monitor patient with [place] Ativan protocol. Unfortunately patient both it out of the ICU in the police escorted the patient to the emergency room. The patient remained in the emergency room setting in a special room that can be locked if necessary. When patient tried to leave the emergency room the door was locked and I placed restraining orders every 4 hr provide a locked room. This was continued until patient was seen by the state appointed staff that transfer the patient to the detox facility. Status at Discharge Cognitive/behavioral status at discharge: Patient's mental status was coherent with decision-making capacity at the time of discharge. Patient was well oriented Functional status at discharge: independent ambulation Time Spent with Patient Greater than 30 minutes (50 min to discharge) Exam Vital Signs (past 8 hours): - 02/17/18 14:56 Temperature 98.9 F Pulse Rate 89 Respiratory Rate 16 Blood Pressure 135/89 Pulse Oximetry 100 Fraction of Inspired Oxygen 40 Oxygen Delivery Method Room Air Oxygen Flow Rate 100 Narrative Exam Narrative: General appearance patient is not awake and alert no apparent distress no tremors are noted Psychiatric well oriented to time place person mood was pleasant affect was appropriate Respiratory clear to auscultation with good airflow no wheezes no crackles Cardiovascular regular rate rhythm no murmurs +3 pulses to extremities GI was benign soft nontender positive bowel sounds no distention no bruits Neurologic no focal neurologic changes cranial nerves 2-12 grossly intact no tremors noted at rest or with intention Objective Labs Result Diagrams: 02/17/18 04:58 02/17/18 04:58 Labs: Laboratory Results - last 24 hr 02/17/18 02/17/18 04:58 04:58 WBC 6.2 D RBC 3.82 L Hgb 12.5 L Hct 35.5 L MCV 93.0 MCH 32.7 MCHC 35.2 RDW 14.7 Plt Count 118 L Neut % (Auto) 67.8 Lymph % (Auto) 19.0 L [place] % (Auto) 11.4 Eos % (Auto) 1.1 L Baso % (Auto) 0.7 Neut # (Auto) 4200 Sodium 138 Potassium 3.2 L Chloride 103 Carbon Dioxide 28 BUN 22 H Creatinine 0.70 Estimated GFR > 60.0 BUN/Creatinine Ratio 31.4 H Glucose 92 Calcium 8.5 Total Bilirubin 1.3 AST 28 ALT 31 Alkaline Phosphatase 40 Total Protein 6.3 Albumin 3.5 Globulin 2.8 Albumin/Globulin Ratio 1.3 Discharge Plan Discharge Plan Patient Disposition: Xfer Psychiatric Hosp Other facility: Detox facility Transportation: Ambulance Discharge comment: Patient with multiple admissions for severe intoxication of alcohol which poses risk to self. Under the [place] law patient is being detained in a facility as designated by the [facility] for further treatment including detox. Discharge Med Rec/Prescriptions Prescriptions: No Action acetaminophen 325 mg Tablet 650 mg PO Q6HR PRN (Reason: Pain, Moderate (4-6)) Qty: 30 RF: 0 thiamine HCl (vitamin B1) 100 mg tablet 100 mg PO DAILY Qty: 30 RF: 0 Follow up/Referrals: Luigi Bains MD [Primary Care Provider] - Discharge Orders: Discharge (Order); Ordered 02/17/18 Ordered By: Vin Barrios Provider Discharge Instructions Diet: Diet as Tolerated Liquid consistency: Normal/Thin Visit Report/Discharge Packet Visit Report Forms: Stroke Signs & Symptoms Discharge Data Primary Care Provider: Luigi Bains Attending Provider: Evelyn Estrada Admit Date/Time: 02/15/18 14:37 Discharges patient from system. Discharge Date/Time: 02/17/18 15:00 Quality VTE Deep Vein Thrombosis/Pulmonary Embolism Present on Admission: No
== END 2018-02-17 15:00 | DRG 133 ==
LOC: ED 14:36 → ICU 14:38
PROVIDERS: Internal Medicine; Admitting Provider Internal Medicine; Emergency Provider Emergency Medicine; Family Provider Family Medicine; PCP Family Medicine; Visit Provider Internal Medicine
DX: J96.01 Acute respiratory failure with hypoxia (principal); F10.229 Alcohol dependence with intoxication, unspecified; Y90.8 Blood alcohol level of 240 mg/100 ml or more; F32.9 Major depressive disorder, single episode, unspecified; E87.0 Hyperosmolality and hypernatremia; R40.2312 Coma scale, best motor response, none, at arrival to emergency department; R40.2112 Coma scale, eyes open, never, at arrival to emergency department; R40.2212 Coma scale, best verbal response, none, at arrival to emergency department; F12.90 Cannabis use, unspecified, uncomplicated
CPT/HCPCS: 36415; 36591; 36600; 51701; 70450; 71045; 80048; 80053; 80305; 80320; 80329; 82805; 82962; 83605; 85025; 87797; 94002; 94003; 94010; 94640; 94770; 94799; 96365; 96366; 96367; 96375; 99285; 99291; 99292; C9113; G0480; J1650; J2060; J2704; J7613

== ENCOUNTER 2018-03-03 22:30 | Inpatient (IN) | payer OTHER, MEDICAID, SELFPAY ==
[2018-02-15 14:41] VITALS: BMI 22.3
[2018-02-16 09:44] VITALS: PULSE 102; RESP 12; O2SAT 100
[2018-03-03 22:30] VITALS: BP 127/86; PULSE 69; RESP 20; O2SAT 100
--- NOTE | 2018-03-03 22:36 | DI.RAD.S_ITS ---
PROCEDURE: XR CHEST 1V INDICATIONS: intubation TECHNIQUE: One view of the chest was acquired. COMPARISON: [facility], CR, XR CHEST 1V, 02/15/2018, 12:30. [facility], CR, XR CHEST 1V, 01/07/2018, 14:58. [facility], CR, XR CHEST 1V, 01/05/2018, 4:58. FINDINGS: Surgical changes and devices: Endotracheal tube in normal position. Lungs and pleura: No pleural effusions or pneumothorax. Lungs are clear. Mediastinum: Mediastinal contours appear normal. Heart size is normal. Bones and chest wall: No suspicious bony lesions. Overlying soft tissues appear unremarkable. IMPRESSION: Mildly reduced inspiratory volume, endotracheal tube positioning normal. Dictated by: Josse Grubbs M.D. on 03/04/2018 at 8:15 Approved by: Josse Grubbs M.D. on 03/04/2018 at 8:15
--- NOTE | 2018-03-03 22:36 | DI.CT.S_ITS ---
PROCEDURE: CT HEAD/BRAIN WO CON INDICATIONS: found down unresponsive, etoh TECHNIQUE: Noncontrast 4.5 mm thick angled axial sections acquired from the foramen magnum to the vertex, with coronal and sagittal reformats. For radiation dose reduction, the following was used: automated exposure control, adjustment of mA and/or kV according to patient size. COMPARISON: [facility], CT, CT HEAD/BRAIN WO CON, 02/15/2018, 12:27. [facility], CT, CT HEAD/BRAIN WO CON, 10/21/2017, 22:25. [facility], CT, HEAD WITHOUT CONTRAST, 09/11/2017, 15:14. FINDINGS: Image quality: Excellent. CSF spaces: Basal cisterns are patent. No extra-axial fluid collections. Ventricles are normal in size and shape. Brain: No midline shift. No intracranial masses or hemorrhage. Dey-white matter interface is normal. Skull and face: Calvarium and visualized facial bones are intact, without suspicious lesions. Sinuses: Visualized sinuses and mastoids are clear. Orotracheal tube in position, inferior tip not visualized. IMPRESSION: No acute disease. Cause of unresponsive status is not identified. No trauma found. Note: These findings are concordant with the preliminary interpretation. Dictated by: Josse Grubbs M.D. on 03/04/2018 at 6:52 Approved by: Josse Grubbs M.D. on 03/04/2018 at 6:54
--- NOTE | 2018-03-03 22:38 | DI.CT.S_ITS ---
PROCEDURE: CT CERVICAL SPINE WO CON INDICATIONS: found down, etoh TECHNIQUE: Noncontrast 3 mm thick sections acquired from the skull base to the T4 level. Sagittal and coronal reformats were then constructed. For radiation dose reduction, the following was used: automated exposure control, adjustment of mA and/or kV according to patient size. COMPARISON: None. FINDINGS: Image quality: Excellent. Bones: No fractures or dislocations. Visualized superior ribs are intact. Soft tissues: Prevertebral soft tissues are normal in thickness. No paravertebral hematomas. No apical pneumothoraces. IMPRESSION: No trauma found. Dictated by: Josse Grubbs M.D. on 03/04/2018 at 6:54 Approved by: Josse Grubbs M.D. on 03/04/2018 at 6:55
--- NOTE | 2018-03-03 22:39 | ED.ALCOHOL ---
HPI - Alcohol General Chief Complaint: Unresponsive Stated Complaint: ETOH / Intubated Time Seen by Provider: 03/03/18 22:35 Source: EMS and old records reviewed Limitations: physical limitation History of Present Illness HPI narrative: Patient is a 28-year-old alcoholic found down by his . He has been on a binge drinking for the past couple of days. He has a well known alcoholic and has been intubated many times. He has been forced into rehab numerous times. This evening he was found down unknown of any trauma. He was intubated in the field with ketamine and succinylcholine. complaint: alcohol intoxication Related Data Previous Rx's Medication Instructions Recorded acetaminophen 650 mg PO Q6HR PRN #30 tab 01/07/18 thiamine HCl (vitamin B1) 100 mg PO DAILY #30 tab 01/07/18 Allergies Allergy/AdvReac Type Severity Reaction Status Date / Time shrimp [SHRIMP] Allergy Severe THROAT Verified 11/10/17 13:32 SWELLING/HIVES diazepam [From VALIUM] Allergy Intermediate LEG Verified 11/10/17 13:32 SWELLING haloperidol [From HALDOL] Allergy Unknown DYSTONIA Verified 11/10/17 13:32 naproxen [NAPROXEN] AdvReac Mild NAUSEA/GI Verified 11/10/17 13:32 DISTRESS Review of Systems Review of Systems due [facility] Social History household members: spouse Smoking Status: Unknown if ever smoked alcohol intake: current Exam Initial Vital Signs Initial Vital Signs: Vital Signs Pulse Rate 69 03/03/18 22:30 Respiratory Rate 20 03/03/18 22:30 Blood Pressure 127/86 03/03/18 22:30 Pulse Oximetry 100 03/03/18 22:30 Const General: patient mechanically ventilated [facility] Head: normal to inspection, normocephalic and atraumatic Eyes Pupils: not reactive (Equal-given succinylcholine) Neck Neck: normal visual inspection Other: C-collar placed by EMS Resp Effort & Inspection: normal respiratory effort Auscultation: clear to auscultation bilaterally, no rales, no rhonchi and no wheezes Cardio Heart Sounds: S1 normal and S2 normal GI Palpation: soft and No tender Skin General: no rashes or lesions noted and elasticity normal Neuro General: alert Pupils: Normal pupillary reactivity/response: bilateral and Sluggish: bilateral Extrem General: normal to inspection and no pedal edema Course Orders Ordered: ED Orders 03/03/18 22:36 CT head/brain wo con Stat XR chest 1V Stat Arterial Blood Gas Stat 03/03/18 22:38 CT cervical spine wo con Stat 03/03/18 22:55 Acetaminophen Stat Complete Blood Count AUTO DIFF Stat Comprehensive Metabolic Panel Stat Ethanol (ETOH) Stat Lipase Stat Salicylate Stat 03/03/18 23:55 Urine Drug Screen, Rapid Stat 03/03/18 23:59 Lactate (Lactic Acid) Stat 03/04/18 02:00 MRSA PCR Stat 03/04/18 02:40 Consult to Dietitian, Adult Routine Determine readiness for weanin RT PROTOCOL Endotracheal tube suction As needed 03/04/18 04:50 Complete Blood Count AUTO DIFF DAILY Lactate (Lactic Acid) Routine 03/05/18 02:45 Complete Blood Count AUTO DIFF DAILY 03/05/18 05:00 Complete Blood Count AUTO DIFF Routine Comprehensive Metabolic Panel Routine 03/06/18 02:45 Complete Blood Count AUTO DIFF DAILY 03/07/18 02:45 Complete Blood Count AUTO DIFF DAILY 03/08/18 02:45 Complete Blood Count AUTO DIFF DAILY 03/09/18 02:45 Complete Blood Count AUTO DIFF DAILY 03/10/18 02:45 Complete Blood Count AUTO DIFF DAILY 03/11/18 02:45 Complete Blood Count AUTO DIFF DAILY 03/12/18 02:45 Complete Blood Count AUTO DIFF DAILY 03/13/18 02:45 Complete Blood Count AUTO DIFF DAILY 03/14/18 02:45 Complete Blood Count AUTO DIFF DAILY 03/15/18 02:45 Complete Blood Count AUTO DIFF DAILY 03/16/18 02:45 Complete Blood Count AUTO DIFF DAILY 03/17/18 02:45 Complete Blood Count AUTO DIFF DAILY Enoxaparin Sodium (Lovenox) 40 mg SUBCUT DAILY HOLGER Folic Acid (Folic Acid) 1 mg PO DAILY HOLGER Propofol (Propofol) 1,000 mg in 100 mls @ 2.313 mls/hr IV TITRATE HOLGER; Protocol Last Titration: 03/04/18 02:24 Dose: 20 mcg/kg/min, 9.253 mls/hr Titration: 03/04/18 01:15 Dose: 10 mcg/kg/min, 4.627 mls/hr Titration: 03/03/18 23:15 Dose: 10 mcg/kg/min, 4.627 mls/hr Admin: 03/03/18 22:50 Dose: 5 mcg/kg/min, 2.313 mls/hr Propofol (Propofol) 1,000 mg in 100 mls @ 2.313 mls/hr IV TITRATE HOLGER; Protocol Dextrose (Dextrose 5% Water) 1,000 mls @ 125 mls/hr IV CONT HOLGER Lorazepam (Ativan) 0 mg IV CIWAPRN PRN; Protocol PRN Reason: Alcohol Withdrawal Multivitamins (Tab-A-Radha) 1 tab PO DAILY HOLGER Pantoprazole Sodium (Protonix) 40 mg IV DAILY HOLGER Thiamine HCl (Vitamin B-1) 100 mg PO DAILY HOLGER Stop: 03/07/18 09:01 Discontinued Medications Sodium Chloride (Normal Saline 0.9%) 1,000 mls @ 150 mls/hr IV CONT HOLGER Last Infusion: 03/04/18 01:45 Dose: 150 mls/hr Admin: 03/04/18 00:11 Dose: 150 mls/hr Dextrose (Dextrose 5% Water) 1,000 mls @ 100 mls/hr IV CONT HOLGER Last Infusion: 03/04/18 01:45 Dose: 100 mls/hr Admin: 03/03/18 22:50 Dose: 100 mls/hr Vital Signs - 8 hr 03/03/18 22:30 03/03/18 23:00 03/03/18 23:45 Temperature Pulse Rate 69 68 69 Respiratory Rate 20 20 20 Blood Pressure Blood Pressure [Right Arm] 127/86 113/76 Pulse Oximetry 100 100 03/03/18 23:58 03/04/18 00:00 03/04/18 00:15 Temperature 98.6 F Pulse Rate 68 64 67 Respiratory Rate 20 20 16 Blood Pressure 150/112 H Blood Pressure [Right Arm] 110/68 110/71 Pulse Oximetry 100 100 100 03/04/18 00:30 03/04/18 00:45 03/04/18 01:15 Temperature 99.1 F Pulse Rate 64 80 72 Respiratory Rate 16 16 16 Blood Pressure 125/77 Blood Pressure [Right Arm] 112/69 119/81 Pulse Oximetry 100 100 100 03/04/18 02:00 03/04/18 03:00 Temperature Pulse Rate 72 74 Respiratory Rate 16 16 Blood Pressure 115/67 108/61 Blood Pressure [Right Arm] Pulse Oximetry 100 98 MDM - Alcohol Medical Records Attestation: I reviewed the patient's medical records. Lab Data Attestation: I reviewed the patient's lab results. Result diagrams: 03/04/18 04:50 03/03/18 22:55 Labs: Lab Results 03/03/18 03/03/18 03/03/18 Range/Units 22:55 22:55 23:55 WBC 7.4 (4.5-11.0) X10^3/uL RBC 4.60 (4.5-5.9) X10^6/uL Hgb 14.6 (13.5-17.5) g/dL Hct 43.0 (41-53) % MCV 93.5 (80-100) fL MCH 31.8 (26-34) PG MCHC 34.0 (30-36) % RDW 14.5 (11.6-14.8) % Plt Count 191 (150-400) X10^3/uL Neut % (Auto) 56.9 (50-75) % Lymph % (Auto) 38.3 (25-40) % [place] % (Auto) 3.0 (3-14) % Eos % (Auto) 0.5 L (2-4) % Baso % (Auto) 1.3 (0-2) % Neut # (Auto) 4200 (6262-6985) /uL ABG pH (7.35-7.45) ABG pCO2 (35-45) mmHg ABG pO2 (80-105) mmHg ABG HCO3 (23-27) mmol/L ABG Total CO2 (23-27) mmol/L ABG O2 Saturation (95-100) % ABG Base Excess (-2-3) mmol/L FiO2 Sodium 157 H (137-145) mmol/L Potassium 4.4 (3.4-5.1) mmol/L Chloride 109 H (98-107) mmol/L Carbon Dioxide 30 (22-32) mmol/L BUN 13 (9-20) mg/dL Creatinine 0.60 L (0.66-1.25) mg/dL Estimated GFR > 60.0 (>60) mL/min BUN/Creatinine Ratio 21.7 (6-22) Glucose 93 (70-100) mg/dL Lactate (0.7-2.1) mmol/L Calcium 8.3 L (8.4-10.2) mg/dL Total Bilirubin 0.3 (0.2-1.3) mg/dL AST 70 H (17-59) IU/L ALT 57 (21-72) IU/L Alkaline Phosphatase 44 (38-126) U/L Total Protein 7.3 (6.3-8.2) g/dL Albumin 4.3 (3.5-5.0) g/dL Globulin 3.0 (1.7-4.1) g/dL Albumin/Globulin Ratio 1.4 (1.0-2.8) Lipase 121 (23-300) U/L Nasal Screen MRSA (PCR) (Negative) Salicylates < 1.0 (<20) mg/dL Urine Opiates Screen Negative (Negative) Ur Oxycodone Screen Negative (Negative) Urine Methadone Screen Negative (Negative) Acetaminophen < 10 L (10-30) ug/mL Ur Barbiturates Screen Negative (Negative) U Tricyclic Antidepress Negative (Negative) Ur Phencyclidine Scrn Negative (Negative) Ur Amphetamines Screen Negative (Negative) U Methamphetamines Scrn Negative (Negative) Ur MDMA Scrn (Ecstasy) Negative (Negative) U Benzodiazepines Scrn Positive H (Negative) Urine Cocaine Screen Negative (Negative) U Marijuana (THC) Screen Positive H (Negative) Ethyl Alcohol 468 H* mg/dL 03/03/18 03/04/18 03/04/18 Range/Units 23:59 00:12 02:00 WBC (4.5-11.0) X10^3/uL RBC (4.5-5.9) X10^6/uL Hgb (13.5-17.5) g/dL Hct (41-53) % MCV (80-100) fL MCH (26-34) PG MCHC (30-36) % RDW (11.6-14.8) % Plt Count (150-400) X10^3/uL Neut % (Auto) (50-75) % Lymph % (Auto) (25-40) % [place] % (Auto) (3-14) % Eos % (Auto) (2-4) % Baso % (Auto) (0-2) % Neut # (Auto) (2302-9282) /uL ABG pH 7.52 H (7.35-7.45) ABG pCO2 31.1 L (35-45) mmHg ABG pO2 193 H (80-105) mmHg ABG HCO3 25 (23-27) mmol/L ABG Total CO2 26 (23-27) mmol/L ABG O2 Saturation 100 (95-100) % ABG Base Excess 3.0 (-2-3) mmol/L FiO2 40 Sodium (137-145) mmol/L Potassium (3.4-5.1) mmol/L Chloride (98-107) mmol/L Carbon Dioxide (22-32) mmol/L BUN (9-20) mg/dL Creatinine (0.66-1.25) mg/dL Estimated GFR (>60) mL/min BUN/Creatinine Ratio (6-22) Glucose (70-100) mg/dL Lactate 2.3 H (0.7-2.1) mmol/L Calcium (8.4-10.2) mg/dL Total Bilirubin (0.2-1.3) mg/dL AST (17-59) IU/L ALT (21-72) IU/L Alkaline Phosphatase (38-126) U/L Total Protein (6.3-8.2) g/dL Albumin (3.5-5.0) g/dL Globulin (1.7-4.1) g/dL Albumin/Globulin Ratio (1.0-2.8) Lipase (23-300) U/L Nasal Screen MRSA (PCR) Negative for mrsa (Negative) Salicylates (<20) mg/dL Urine Opiates Screen (Negative) Ur Oxycodone Screen (Negative) Urine Methadone Screen (Negative) Acetaminophen (10-30) ug/mL Ur Barbiturates Screen (Negative) U Tricyclic Antidepress (Negative) Ur Phencyclidine Scrn (Negative) Ur Amphetamines Screen (Negative) U Methamphetamines Scrn (Negative) Ur MDMA Scrn (Ecstasy) (Negative) U Benzodiazepines Scrn (Negative) Urine Cocaine Screen (Negative) U Marijuana (THC) Screen (Negative) Ethyl Alcohol mg/dL 03/04/18 03/04/18 Range/Units 04:50 04:50 WBC 6.3 (4.5-11.0) X10^3/uL RBC 4.10 L (4.5-5.9) X10^6/uL Hgb 13.1 L (13.5-17.5) g/dL Hct 38.0 L (41-53) % MCV 92.7 (80-100) fL MCH 32.0 (26-34) PG MCHC 34.6 (30-36) % RDW 14.4 (11.6-14.8) % Plt Count 166 (150-400) X10^3/uL Neut % (Auto) 46.9 L (50-75) % Lymph % (Auto) 48.2 H (25-40) % [place] % (Auto) 4.2 (3-14) % Eos % (Auto) 0.2 L (2-4) % Baso % (Auto) 0.5 (0-2) % Neut # (Auto) 3000 (0966-6141) /uL ABG pH (7.35-7.45) ABG pCO2 (35-45) mmHg ABG pO2 (80-105) mmHg ABG HCO3 (23-27) mmol/L ABG Total CO2 (23-27) mmol/L ABG O2 Saturation (95-100) % ABG Base Excess (-2-3) mmol/L FiO2 Sodium (137-145) mmol/L Potassium (3.4-5.1) mmol/L Chloride (98-107) mmol/L Carbon Dioxide (22-32) mmol/L BUN (9-20) mg/dL Creatinine (0.66-1.25) mg/dL Estimated GFR (>60) mL/min BUN/Creatinine Ratio (6-22) Glucose (70-100) mg/dL Lactate 2.2 H (0.7-2.1) mmol/L Calcium (8.4-10.2) mg/dL Total Bilirubin (0.2-1.3) mg/dL AST (17-59) IU/L ALT (21-72) IU/L Alkaline Phosphatase (38-126) U/L Total Protein (6.3-8.2) g/dL Albumin (3.5-5.0) g/dL Globulin (1.7-4.1) g/dL Albumin/Globulin Ratio (1.0-2.8) Lipase (23-300) U/L Nasal Screen MRSA (PCR) (Negative) Salicylates (<20) mg/dL Urine Opiates Screen (Negative) Ur Oxycodone Screen (Negative) Urine Methadone Screen (Negative) Acetaminophen (10-30) ug/mL Ur Barbiturates Screen (Negative) U Tricyclic Antidepress (Negative) Ur Phencyclidine Scrn (Negative) Ur Amphetamines Screen (Negative) U Methamphetamines Scrn (Negative) Ur MDMA Scrn (Ecstasy) (Negative) U Benzodiazepines Scrn (Negative) Urine Cocaine Screen (Negative) U Marijuana (THC) Screen (Negative) Ethyl Alcohol mg/dL Imaging Data CT 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 MDM Narrative Medical decision making narrative: Patient is hypernatremic started on D 5. Propofol drip started for sedation. Dr. Watkins patient to the ICU. has been updated accepts Discharge Plan Departure Patient Disposition: Admitted As Inpatient Clinical Impression: Alcohol intoxication, Respiratory failure Discharge Date/Time: 03/04/18 01:15 Interventions: ED Discharge Assessment Last Done: 03/04/18 01:43 Admit Date/Time: 03/04/18 00:47 Admit Provider: Jaydon Watkins
[2018-03-03] MEDS: PROPOFOL 1,000 MG/100 ML VIAL 2.313 MG IV (22:50)
[2018-03-03] MEDS: DEXTROSE 5% WATER 1,000 ML 100 ML IV (22:50)
[2018-03-03 23:00] VITALS: BP 127/86; PULSE 68; RESP 20; O2SAT 100
[2018-03-03 23:02] LABS: Add Manual Diff / Slide Review NO; Basophils Percent Auto 1.3 % (0-2); Eosinophils Percent Auto 0.5 % (2-4); Hemoglobin 14.6 g/dL (13.5-17.5); Lymphocytes Percent Auto 38.3 % (25-40); Mean Corpuscular Hemoglobin 31.8 PG (26-34); Mean Corpuscular Volume 93.5 fL (80-100); Neutrophils Absolute Auto 4200 /uL (3000-5900); Neutrophils Percent Auto 56.9 % (50-75); Platelet Count 191 X10^3/uL (150-400); Red Cell Distribution Width 14.5 % (11.6-14.8); White Blood Cell Count 7.4 X10^3/uL (4.5-11.0)
[2018-03-03 23:11] LABS: Acetaminophen < 10 ug/mL (10-30); Alanine Aminotransferase 57 IU/L (21-72); Albumin 4.3 g/dL (3.5-5.0); Albumin Globulin Ratio 1.4 (1.0-2.8); Alkaline Phosphatase 44 U/L (38-126); Aspartate Aminotransferase 70 IU/L (17-59); BUN Creatinine Ratio 21.7 (6-22); Bilirubin Total 0.3 mg/dL (0.2-1.3); Blood Urea Nitrogen 13 mg/dL (9-20); Calcium 8.3 mg/dL (8.4-10.2); Carbon Dioxide 30 mmol/L (22-32); Chloride 109 mmol/L (98-107); Estimated Glomerular Filt Rate > 60.0 mL/min (>60); Glucose 93 mg/dL (70-100); HEMOLYSIS 26 (0-50); Lipase 121 U/L (23-300); Potassium 4.4 mmol/L (3.4-5.1); Sodium 157 mmol/L (137-145); Total Protein 7.3 g/dL (6.3-8.2)
[2018-03-03 23:12] LABS: Salicylate < 1.0 mg/dL (<20)
[2018-03-03 23:24] LABS: Ethanol (ETOH) 468 mg/dL
[2018-03-03 23:32] VITALS: O2SAT 100
[2018-03-03 23:45] VITALS: BP 113/76; PULSE 69; RESP 20; O2SAT 100
[2018-03-03 23:58] VITALS: BP 150/112; PULSE 68; RESP 20; TEMP 37; O2SAT 100
[2018-03-04] VITALS (18 sets, daily range): BP systolic 104–137; BP diastolic 61–82; PULSE 64–85; RESP 6–20; TEMP 36.8–37.6; O2SAT 97–100; BMI 23.7; BMI 23.3
[2018-03-04] MEDS: SODIUM CHLORIDE 0.9% 1,000 ML 150 ML IV (00:11)
[2018-03-04 00:19] LABS: Lactate (Lactic Acid) 2.3 mmol/L (0.7-2.1)
[2018-03-04 00:36] LABS: HCO3 ABG 25 mmol/L (23-27); Oxygen Saturation ABG 100 % (95-100); PCO2 ABG 31.1 mmHg (35-45); PO2 ABG 193 mmHg (80-105); TCO2 ABG 26 mmol/L (23-27); pH ABG 7.52 (7.35-7.45)
[2018-03-04 00:37] LABS: Fractionated Inspired Oxygen 40
[2018-03-04 01:32] LABS: Urine Amphetamines Negative (Negative); Urine Barbiturates Negative (Negative); Urine Benzodiazepines Positive (Negative); Urine Cocaine Negative (Negative); Urine MDMA Negative (Negative); Urine Methadone Negative (Negative); Urine Methamphetamines Negative (Negative); Urine Morphine/Opi cutoff 2000 Negative (Negative); Urine Oxycodone Negative (Negative); Urine Phencyclidine Negative (Negative); Urine Tetrahydrocannabinol Positive (Negative); Urine Tricyclic Antidepressant Negative (Negative)
--- NOTE | 2018-03-04 02:26 | PC.ADMIT ---
Addendum entered by Lisseth Hermosillo R.N. 03/04/18 06:36: Continues on ventilator, no change from previous settings, propofol gtt has been titrated up to 60mcg/kg/min to keep patient sedated so he does not attempt to reach for ETT. Restraints on. Original Note: [address] Admission Note: The patient,Abhinav Herr,28 y/o, was given written information regarding hospital policies, unit procedures and contact persons. Patient's smoking status: Unknown if ever smoked. Vital Signs - 8 hr 03/03/18 22:30 03/03/18 23:00 03/03/18 23:45 Temperature Pulse Rate 69 68 69 Respiratory Rate 20 20 20 Blood Pressure Blood Pressure [Right Arm] 127/86 113/76 Pulse Oximetry 100 100 03/03/18 23:58 03/04/18 00:00 03/04/18 00:15 Temperature 98.6 F Pulse Rate 68 64 67 Respiratory Rate 20 20 16 Blood Pressure 150/112 H Blood Pressure [Right Arm] 110/68 110/71 Pulse Oximetry 100 100 100 03/04/18 00:30 03/04/18 00:45 03/04/18 01:15 Temperature 99.1 F Pulse Rate 64 80 72 Respiratory Rate 16 16 16 Blood Pressure 125/77 Blood Pressure [Right Arm] 112/69 119/81 Pulse Oximetry 100 100 100 03/04/18 02:00 Temperature Pulse Rate 72 Respiratory Rate 16 Blood Pressure 115/67 Blood Pressure [Right Arm] Pulse Oximetry 100 0115-Patient admitted to ICU on ventilator and sedated with 10mcg/kg/min propofol, does have spontaneous movements to all extremeties. SR, initial BP 125/77, riding vent RR setting of 16, SpO2 100%, IV fluids infusing as ordered, OGT to LIS with small amount of thick yellow fluid return, Isabel cath patent, skin warm, dry, intact except few bruises and small petechiae to lower legs. Soft wrist restraints to wrists, will titrate propofol for sedation. No family at bedside with patient, admit assessment completed to best of ability from patient's previous and frequent assessments.
--- NOTE | 2018-03-04 02:51 | P.HP_ITS ---
History of Present Illness Date Patient Seen: 03/04/18 Time Patient Seen: 02:47 Chief complaint: ETOH / Intubated Narrative: A 28-year-old male presents with respiratory depression and acute alcohol intoxication requiring intubation in the field by the paramedics. The patient was found to be unresponsive by friends who called paramedics and because of severe respiratory distress and had intubated in the field. Patient has had multiple episodes of similar presentations. Alcohol level on this admission for 68 which is in the fatality range. Patient has been sedated to tolerate the ventilator he is not available for history due to this. Currently is resting quietly here in the ICU sedated. Patient History Family & Social History Social History: household members spouse Safety & Behavioral: Suicidal Ideation Description Vague,Frequent Suicide Plan Description Vague,Feasible Tobacco & Substance use: Smoking Status Unknown if ever smoked alcohol intake current alcohol intake frequency 3 or more drinks per day Substance Use Type other Meds Home Medications Medication Instructions Recorded Confirmed Type acetaminophen 650 mg PO Q6HR PRN #30 tab 01/07/18 02/15/18 Rx thiamine HCl (vitamin B1) 100 mg PO DAILY #30 tab 01/07/18 02/15/18 Rx Allergies Allergy/AdvReac Type Severity Reaction Status Date / Time shrimp [SHRIMP] Allergy Severe THROAT Verified 11/10/17 13:32 SWELLING/HIVES diazepam [From VALIUM] Allergy Intermediate LEG Verified 11/10/17 13:32 SWELLING haloperidol [From HALDOL] Allergy Unknown DYSTONIA Verified 11/10/17 13:32 naproxen [NAPROXEN] AdvReac Mild NAUSEA/GI Verified 11/10/17 13:32 DISTRESS Review of Systems Review of Systems due to endotracheal tube and unobtainable due to mental condition Exam Vital Signs (past 8 hours): - 03/03/18 22:30 03/03/18 23:00 03/03/18 23:45 Temperature Pulse Rate 69 68 69 Respiratory Rate 20 20 20 Blood Pressure Blood Pressure [Right Arm] 127/86 113/76 Pulse Oximetry 100 100 03/03/18 23:58 03/04/18 00:00 03/04/18 00:15 Temperature 98.6 F Pulse Rate 68 64 67 Respiratory Rate 20 20 16 Blood Pressure 150/112 H Blood Pressure [Right Arm] 110/68 110/71 Pulse Oximetry 100 100 100 03/04/18 00:30 03/04/18 00:45 03/04/18 01:15 Temperature 99.1 F Pulse Rate 64 80 72 Respiratory Rate 16 16 16 Blood Pressure 125/77 Blood Pressure [Right Arm] 112/69 119/81 Pulse Oximetry 100 100 100 03/04/18 02:00 Temperature Pulse Rate 72 Respiratory Rate 16 Blood Pressure 115/67 Blood Pressure [Right Arm] Pulse Oximetry 100 Oxygen Delivery Method Mechanical Ventilation Narrative Exam Narrative: Young adult male currently intubated sedated unable to answer questions. Lungs are clear to auscultation Heart regular rhythm Abdomen thin soft nontender Lower extremities no edema Skin warm and dry Neuro exam moves all 4 extremities spontaneously Objective Labs Result Diagrams: 03/03/18 22:55 03/03/18 22:55 Labs: Laboratory Results - last 24 hr 03/03/18 03/03/18 03/03/18 22:55 22:55 23:55 WBC 7.4 RBC 4.60 Hgb 14.6 Hct 43.0 MCV 93.5 MCH 31.8 MCHC 34.0 RDW 14.5 Plt Count 191 Neut % (Auto) 56.9 Lymph % (Auto) 38.3 [place] % (Auto) 3.0 Eos % (Auto) 0.5 L Baso % (Auto) 1.3 Neut # (Auto) 4200 ABG pH ABG pCO2 ABG pO2 ABG HCO3 ABG Total CO2 ABG O2 Saturation ABG Base Excess FiO2 Sodium 157 H Potassium 4.4 Chloride 109 H Carbon Dioxide 30 BUN 13 Creatinine 0.60 L Estimated GFR > 60.0 BUN/Creatinine Ratio 21.7 Glucose 93 Lactate Calcium 8.3 L Total Bilirubin 0.3 AST 70 H ALT 57 Alkaline Phosphatase 44 Total Protein 7.3 Albumin 4.3 Globulin 3.0 Albumin/Globulin Ratio 1.4 Lipase 121 Salicylates < 1.0 Urine Opiates Screen Negative Ur Oxycodone Screen Negative Urine Methadone Screen Negative Acetaminophen < 10 L Ur Barbiturates Screen Negative U Tricyclic Antidepress Negative Ur Phencyclidine Scrn Negative Ur Amphetamines Screen Negative U Methamphetamines Scrn Negative Ur MDMA Scrn (Ecstasy) Negative U Benzodiazepines Scrn Positive H Urine Cocaine Screen Negative U Marijuana (THC) Screen Positive H Ethyl Alcohol 468 H* 03/03/18 03/04/18 23:59 00:12 WBC RBC Hgb Hct MCV MCH MCHC RDW Plt Count Neut % (Auto) Lymph % (Auto) [place] % (Auto) Eos % (Auto) Baso % (Auto) Neut # (Auto) ABG pH 7.52 H ABG pCO2 31.1 L ABG pO2 193 H ABG HCO3 25 ABG Total CO2 26 ABG O2 Saturation 100 ABG Base Excess 3.0 FiO2 40 Sodium Potassium Chloride Carbon Dioxide BUN Creatinine Estimated GFR BUN/Creatinine Ratio Glucose Lactate 2.3 H Calcium Total Bilirubin AST ALT Alkaline Phosphatase Total Protein Albumin Globulin Albumin/Globulin Ratio Lipase Salicylates Urine Opiates Screen Ur Oxycodone Screen Urine Methadone Screen Acetaminophen Ur Barbiturates Screen U Tricyclic Antidepress Ur Phencyclidine Scrn Ur Amphetamines Screen U Methamphetamines Scrn Ur MDMA Scrn (Ecstasy) U Benzodiazepines Scrn Urine Cocaine Screen U Marijuana (THC) Screen Ethyl Alcohol Assessment & Plan Plan: Assessment/Plan Narrative: One. Acute respiratory failure secondary to severe alcohol intoxication with an alcohol level of 460 which is in the range of fatalities. But due to the severe respiratory depression he was intubated in the field now is currently on a ventilator with sedation to tolerate the ventilator. Plan to keep him ventilated until his alcohol wears off and he is more awake and able to breathe on his own and then will extubate him. Patient has had frequent episodes of similar presentations 2. Acute hypernatremia probably secondary to dehydration volume depletion. Plan to place him back on IV fluids with D5W recheck labs in the morning 3. Severe alcohol dependence alcohol abuse patient in need of acute alcohol treatment he has been unwilling to undergo this in the past however.
[2018-03-04 04:06] LABS: Reflexed Lactate in 2 Hours Y
[2018-03-04 05:04] LABS: Add Manual Diff / Slide Review NO; Basophils Percent Auto 0.5 % (0-2); Eosinophils Percent Auto 0.2 % (2-4); Hemoglobin 13.1 g/dL (13.5-17.5); Lymphocytes Percent Auto 48.2 % (25-40); Mean Corpuscular HGB Conc 34.6 % (30-36); Mean Corpuscular Volume 92.7 fL (80-100); Monocytes Percent Auto 4.2 % (3-14); Neutrophils Absolute Auto 3000 /uL (3000-5900); Neutrophils Percent Auto 46.9 % (50-75); Platelet Count 166 X10^3/uL (150-400); Red Cell Distribution Width 14.4 % (11.6-14.8); White Blood Cell Count 6.3 X10^3/uL (4.5-11.0)
[2018-03-04 05:12] LABS: Lactate (Lactic Acid) 2.2 mmol/L (0.7-2.1)
[2018-03-04] MEDS: PROPOFOL 1,000 MG/100 ML VIAL 27.76 MG IV (05:51)
[2018-03-04] MEDS: ENOXAPARIN 40 MG/0.4 ML SYRINGE SUBCUT (08:34)
[2018-03-04] MEDS: PANTOPRAZOLE 40 MG VIAL IV (08:35)
[2018-03-04 08:36] LABS: Alanine Aminotransferase 57 IU/L (21-72); Albumin 3.5 g/dL (3.5-5.0); Albumin Globulin Ratio 1.4 (1.0-2.8); Alkaline Phosphatase 41 U/L (38-126); Aspartate Aminotransferase 51 IU/L (17-59); BUN Creatinine Ratio 18.3 (6-22); Bilirubin Total 0.3 mg/dL (0.2-1.3); Blood Urea Nitrogen 11 mg/dL (9-20); Calcium 8.5 mg/dL (8.4-10.2); Carbon Dioxide 26 mmol/L (22-32); Chloride 108 mmol/L (98-107); Estimated Glomerular Filt Rate > 60.0 mL/min (>60); Globulin 2.5 g/dL (1.7-4.1); Glucose 87 mg/dL (70-100); HEMOLYSIS < 15 (0-50); Potassium 3.5 mmol/L (3.4-5.1); Sodium 149 mmol/L (137-145)
[2018-03-04 08:58] LABS: Reflexed Lactate in 2 Hours Y
[2018-03-04] MEDS: DEXTROSE 5% WATER 1,000 ML 125 ML IV (09:15)
[2018-03-04] MEDS: PROPOFOL 1,000 MG/100 ML VIAL 32.387 MG IV (09:15)
--- NOTE | 2018-03-04 10:35 | P.PN_ITS ---
Subjective Date Patient Seen: 03/04/18 Time Patient Seen: 10:26 Interval history: FOLLOW UP ON ACUTE RESPIRATORY FAILURE DUE TO ALCOHOL INTOXICATION Patient seen at bedside. No overnight events but required high doses of propofol. Passed CPAP trial earlier this morning. Was extubated successfully. However now requesting for IVF to be stopped and wants to Eat. Discussed with patient that he has high sodium levels and can have complications such as seizures if not corrected with IVF. Patient agreed to have IVF in until 1pm, next Na check. Exam Vital Signs (past 8 hours): - 03/04/18 03:00 03/04/18 04:00 03/04/18 05:00 Temperature 98.2 F Pulse Rate 74 81 81 Respiratory Rate 16 16 16 Blood Pressure 108/61 113/67 110/65 Pulse Oximetry 98 97 97 03/04/18 06:00 03/04/18 07:21 03/04/18 08:00 Temperature 98.3 F Pulse Rate 77 76 78 Respiratory Rate 16 16 16 Blood Pressure 104/61 111/63 107/61 Pulse Oximetry 97 99 99 03/04/18 08:58 Temperature Pulse Rate Respiratory Rate Blood Pressure Pulse Oximetry 100 Oxygen Delivery Method Mechanical Ventilation Narrative Exam Narrative: Gen: NAD, AAOx3, extubated HEENT: PERRLA BL Neck: Supple, no LAD CV: RRR, no murmurs Resp: CTA BL, no wheezing GI: +BS, soft, nontender MSK: MOves all extremities freely Skin: no lesions or bruises Objective Labs Result Diagrams: 03/04/18 04:50 03/04/18 08:00 Labs: Laboratory Results - last 24 hr 03/03/18 03/03/18 03/03/18 22:55 22:55 23:55 WBC 7.4 RBC 4.60 Hgb 14.6 Hct 43.0 MCV 93.5 MCH 31.8 MCHC 34.0 RDW 14.5 Plt Count 191 Neut % (Auto) 56.9 Lymph % (Auto) 38.3 [place] % (Auto) 3.0 Eos % (Auto) 0.5 L Baso % (Auto) 1.3 Neut # (Auto) 4200 ABG pH ABG pCO2 ABG pO2 ABG HCO3 ABG Total CO2 ABG O2 Saturation ABG Base Excess FiO2 Sodium 157 H Potassium 4.4 Chloride 109 H Carbon Dioxide 30 BUN 13 Creatinine 0.60 L Estimated GFR > 60.0 BUN/Creatinine Ratio 21.7 Glucose 93 Lactate Calcium 8.3 L Total Bilirubin 0.3 AST 70 H ALT 57 Alkaline Phosphatase 44 Total Protein 7.3 Albumin 4.3 Globulin 3.0 Albumin/Globulin Ratio 1.4 Lipase 121 Nasal Screen MRSA (PCR) Salicylates < 1.0 Urine Opiates Screen Negative Ur Oxycodone Screen Negative Urine Methadone Screen Negative Acetaminophen < 10 L Ur Barbiturates Screen Negative U Tricyclic Antidepress Negative Ur Phencyclidine Scrn Negative Ur Amphetamines Screen Negative U Methamphetamines Scrn Negative Ur MDMA Scrn (Ecstasy) Negative U Benzodiazepines Scrn Positive H Urine Cocaine Screen Negative U Marijuana (THC) Screen Positive H Ethyl Alcohol 468 H* 03/03/18 03/04/18 03/04/18 23:59 00:12 02:00 WBC RBC Hgb Hct MCV MCH MCHC RDW Plt Count Neut % (Auto) Lymph % (Auto) [place] % (Auto) Eos % (Auto) Baso % (Auto) Neut # (Auto) ABG pH 7.52 H ABG pCO2 31.1 L ABG pO2 193 H ABG HCO3 25 ABG Total CO2 26 ABG O2 Saturation 100 ABG Base Excess 3.0 FiO2 40 Sodium Potassium Chloride Carbon Dioxide BUN Creatinine Estimated GFR BUN/Creatinine Ratio Glucose Lactate 2.3 H Calcium Total Bilirubin AST ALT Alkaline Phosphatase Total Protein Albumin Globulin Albumin/Globulin Ratio Lipase Nasal Screen MRSA (PCR) Negative for mrsa Salicylates Urine Opiates Screen Ur Oxycodone Screen Urine Methadone Screen Acetaminophen Ur Barbiturates Screen U Tricyclic Antidepress Ur Phencyclidine Scrn Ur Amphetamines Screen U Methamphetamines Scrn Ur MDMA Scrn (Ecstasy) U Benzodiazepines Scrn Urine Cocaine Screen U Marijuana (THC) Screen Ethyl Alcohol 03/04/18 03/04/18 03/04/18 04:50 04:50 08:00 WBC 6.3 RBC 4.10 L Hgb 13.1 L Hct 38.0 L MCV 92.7 MCH 32.0 MCHC 34.6 RDW 14.4 Plt Count 166 Neut % (Auto) 46.9 L Lymph % (Auto) 48.2 H [place] % (Auto) 4.2 Eos % (Auto) 0.2 L Baso % (Auto) 0.5 Neut # (Auto) 3000 ABG pH ABG pCO2 ABG pO2 ABG HCO3 ABG Total CO2 ABG O2 Saturation ABG Base Excess FiO2 Sodium 149 H Potassium 3.5 Chloride 108 H Carbon Dioxide 26 BUN 11 Creatinine 0.60 L Estimated GFR > 60.0 BUN/Creatinine Ratio 18.3 Glucose 87 Lactate 2.2 H Calcium 8.5 Total Bilirubin 0.3 AST 51 ALT 57 Alkaline Phosphatase 41 Total Protein 6.0 L Albumin 3.5 Globulin 2.5 Albumin/Globulin Ratio 1.4 Lipase Nasal Screen MRSA (PCR) Salicylates Urine Opiates Screen Ur Oxycodone Screen Urine Methadone Screen Acetaminophen Ur Barbiturates Screen U Tricyclic Antidepress Ur Phencyclidine Scrn Ur Amphetamines Screen U Methamphetamines Scrn Ur MDMA Scrn (Ecstasy) U Benzodiazepines Scrn Urine Cocaine Screen U Marijuana (THC) Screen Ethyl Alcohol Assessment & Plan Plan: Assessment/Plan Narrative: 1. Acute Respiratory Failure - In the setting of alcohol intoxication - Resolved, now patient is extubated and is breathing well on Room air 2. Alcohol intoxication - Seems to have worn off, as patient is back to baseline of AAOx3 - Monitor for withdrawals 3. Alcohol Abuse - Chronic, not willing to go to treatment - Continue MV, FA, Thiamine - Will implement Rashad's law once patient is medically stable 4. Hypernatremia - Likely due to alcohol abuse - improving with IVF, currently 149 - Continue D5W@125cc/hr and monitor Na levels Q6H Time spent evaluating and providing care for this patient: 20min
--- NOTE | 2018-03-04 11:56 | PC.NURSE ---
Addendum entered by Luisa Connell R.N. 03/04/18 15:13: Patient left AMA at 1510. IVs removed prior to d/c. Walked steadily out of unit, stated he was thankful for care but he couldn't wait until next sodium recheck at 1800. AMA form signed. Reported he would go to outpatient appointment tomorrow. Dr. Estrada notified of the above. Original Note: Addendum entered by Luisa Connell R.N. 03/04/18 12:54: Spoke to mother, Alta, who stated that she or Cam would be able to get pt to 1pm appointment at [facility] 03/05. Original Note: Day Shift Note Pt intubated and sedated at start of shift. Opening eyes and struggling against restraints, oriented to place and situation, nodded head in understanding and following commands. Propofol off at 0825 in prep for CPAP trial. Pt exhibiting frustration, writing on notepad that he was choking during trial. Explained situation and the sequence of events needed to extubate, nodded in understanding and was cooperative with CPAP, RR 12 bpm, oxygen sats 99%, HR in the 80s. After about 30 min of CPAP trial update called to Dr. Estrada and order received to extubate. This was done at 0940 by RT, pt extubated to RA with sats 99%. Speech clear and strong cough noted. Restraints and Isabel catheter removed at this time. Pt denies any suicidal ideation at this time and reports that this recent episode of alcohol use was not a suicide attempt. Pt requesting IVs to be d/c'd - explained to patient the need to keep D5 infusing due to elevated sodium and assoc. seizure risk. Pt acknowledged understanding and is agreeable with plan at this time. Mariely CHAU has spoken with patient. Pt independent in room, steady on feet. Using call light appropriately to make needs known.
--- NOTE | 2018-03-04 11:57 | PM.CHAP ---
Intersting conversation with pt this morning. Sitting up on side of bed. Pt aware of danger of repetitive hospitalizations duie to ETOH overdose. Blames state for laws re alcohol trreatment. Says his problems mostly due to depression. Expresses strong denial for suicide wish. One wonders if there is any way to reach judi young man.
[2018-03-04] MEDS: LORazepam 1 MG TABLET PO (13:50)
[2018-03-04 13:54] LABS: Sodium 146 mmol/L (137-145)
[2018-03-04] MEDS: MULTIVITAMIN 1 TABLET 1 TAB PO (14:17)
[2018-03-04] MEDS: THIAMINE 100 MG TABLET PO (14:17)
[2018-03-04] MEDS: FOLIC ACID 1 MG TABLET PO (14:17)
--- NOTE | 2018-03-04 15:54 | CM.SWNOTE ---
CYBER OPS PLANNER Note: Reviewed chart. Patient with multiple admits for alcohol related issues. Patient found by family in the residence unconscious. Paramedics called and patient intubated prior to his arrival at . Emergency Department. Patient extubated this AM. This CYBER OPS PLANNER has had several contacts with patient re: treatment, detainment, Rashad's Law, mental health, and voluntary vs. non-voluntary treatment. Previous visit at [facility].. a few weeks ago patient when patient detained and sent to [facility] for treatment. Patient with several detainments under Rashad's Law. Spoke with RN and MD in AM rounds. Extubation completed this AM. RN reports that patient has been very cooperative and asking to speak with CYBER OPS PLANNER. Met with patient explained CYBER OPS PLANNER role. Patient alert and oriented during interview. Patient reports that he has not been drinking daily. He does not feel he needs detox. Patient reports that there are numerous life stresses that make him drink. Patient appears to be fully aware that he has problem but reports that he also feels like he has plan. Patient reports that nobody listens to me. Patient reports that he has outpatient appointment at [facility] to do IOP scheduled for tomorrow. Patient denies any current suicide or homicidal ideation. Patient cooperative throughout assessment and CYBER OPS PLANNER asked if he would sign consent for CYBER OPS PLANNER to discuss/confirm appointment with [facility]. Patient in agreement. Consent signed and faxed to [facility] attn: Tomeka (per request). CYBER OPS PLANNER placed call to [facility] ph# [phone] spoke with Tomeka she confirms that patient enrolled in IOP on ,,, at 1:00pm at [address] [place], [place]. Patient's counselor is Brooke Kate ph# [phone] ext# [phone]. CYBER OPS PLANNER left voice mail with Brooke. After confirming appointment, CYBER OPS PLANNER placed call to [facility] spoke with Ronnie re: dispatching a [facility]? Per Ronnie, if patient voluntarily willing to seek treatment either inpatient or outpatient and currently without suicidal/homicidal ideation that [facility] will not dispatch [facility] under Rashad's Law. CYBER OPS PLANNER notified RN and Lola Hall in Quality. RN confirmed with patient's Mother with patient's permission that patient does have transportation to appointment tomorrow. Therefore, CYBER OPS PLANNER spoke with and it was determined that once patient medically stable he will d/c home. All numbers including appointment provided to RN to include in discharge paperwork. Patient aware and agreeable to all of the above. P: Home today. Follow up appointment with [facility] confirmed. Patient denies suicidal/homicidal ideation. Patient voluntarily agrees to intense outpatient treatment at [facility] ([facility]). Crisis contacted and do not feel patient suitable for dispatch because of his willingness to do outpatient treatment. KANDI Dickerson Discharge Planning/Care Management CM Discharge Assessment Start: 03/04/18 15:49 Freq: Status: Discharge Protocol: Document 03/04/18 15:49 KJS (Rec: 03/04/18 15:54 KJS [id number]) Discharge Planning Assessment Assigned Procedures Rn KANDI Dickerson Contact Information Alta Herr (Mother) Advance Directives? No Advance Directives on File No History Provided By Patient Medical Record Has Patient been admitted in last 30 Yes days? Comment Patient with several admits to [facility] related to alcoholism. See history for details. Prior Living Arrangements Apartment/Condo Household Members spouse family Independent with ADL's Yes Is patient alert and oriented? Yes Caregiver for Another No Patient/Family Preference Drug/Alcohol Rehab Comment Multiple D/A stays, multiple relapses once home. Barriers to Discharge No Comment Unable to remain sober. Constant suicidal ideation/ behaviors Discharge Plan Home Transportation Arrangement Pending Referrals Initiated Other Additional Comment Per RN: Patient requiring call to [facility] for evaluation under Rashad's Law guidelines. Pt. requesting to leave AMA today. DCR once medically stable enough for evaluation Whiteboard Updated in Patient Room with Yes name and ext. # of Procedures Rn Review Status In Process Please Provide Date Initial DC 03/04/18 Assessment Was Performed Next Review Type Continued Stay Review
== END 2018-03-04 15:10 | disposition left against medical advice (07) | DRG 133 ==
LOC: ED 22:46 → ICU 03-04 00:48
PROVIDERS: Internal Medicine; Admitting Provider Internal Medicine; Emergency Provider Emergency Medicine; Family Provider Family Medicine; PCP Family Medicine; Visit Provider Internal Medicine
DX: J96.01 Acute respiratory failure with hypoxia (principal); F10.220 Alcohol dependence with intoxication, uncomplicated; Y90.8 Blood alcohol level of 240 mg/100 ml or more; E87.0 Hyperosmolality and hypernatremia; E86.0 Dehydration
CPT/HCPCS: 36415; 36600; 51701; 70450; 71045; 72125; 80053; 80305; 80320; 80329; 82805; 83605; 83690; 84295; 85025; 87797; 94002; 94003; 94770; 94799; 96365; 96366; 99285; 99291; 99292; C9113; G0480; J1650; J2704

== ENCOUNTER 2018-03-19 12:12 | Emergency (ER) | payer OTHER, MEDICAID, SELFPAY ==
[2018-03-04 01:42] VITALS: BMI 23.7
[2018-03-04 08:58] VITALS: PULSE 76; RESP 6; O2SAT 100
[2018-03-19] VITALS (9 sets, daily range): BP systolic 92–119; BP diastolic 44–75; PULSE 60–77; RESP 15–26; TEMP 36.9; O2SAT 97–100
--- NOTE | 2018-03-19 12:18 | ED.AMS ---
HPI - Altered Mental Status General Chief Complaint: Altered Mental Status Stated Complaint: Altered mental status Time Seen by Provider: 03/19/18 12:18 Source: EMS Mode of arrival: EMS Limitations: altered mental status History of Present Illness HPI narrative: The patient is a known alcoholic. He has required intubation previously. Police saw him at his home this morning. He was out and walking, but they were concerned about him. They checked up on him prior to arrival, he was leaning against house, and much less responsive. EMS was contacted. Upon their arrival he was still verbal, but obviously altered. Alcohol was once again suspected. Narcan was given, there was little effect. He was transported here due to altered mental status. He has been normotensive, there has been no suggestion of hypoxia or hypoventilation. No alcohol containers or drug paraphernalia are obvious at the home. Related Data Home Medications Medication Instructions Recorded Confirmed Unobtainable 03/19/18 03/19/18 Allergies Allergy/AdvReac Type Severity Reaction Status Date / Time shrimp [SHRIMP] Allergy Severe THROAT Verified 11/10/17 13:32 SWELLING/HIVES diazepam [From VALIUM] Allergy Intermediate LEG Verified 11/10/17 13:32 SWELLING haloperidol [From HALDOL] Allergy Unknown DYSTONIA Verified 11/10/17 13:32 naproxen [NAPROXEN] AdvReac Mild NAUSEA/GI Verified 11/10/17 13:32 DISTRESS Review of Systems Review of Systems unobtainable due to mental condition Exam Initial Vital Signs Initial Vital Signs: Vital Signs Temperature 98.4 F 03/19/18 12:18 Pulse Rate 65 03/19/18 12:18 Respiratory Rate 26 H 03/19/18 12:18 Blood Pressure 119/73 03/19/18 12:18 Pulse Oximetry 100 03/19/18 12:18 Const General: intoxicated appearing, lethargic and other ( No verbal response, response to noxious stimuli.) Nutritional Appearance: malnourished Orientation: alert and obtunded Limitations: altered mental status HENMT Head: normocephalic and atraumatic Ears: external ears normal and TM's normal bilaterally Nose: external nose normal and No nasal discharge Face and sinus: sinuses nontender, face symmetric and no sinus tenderness Mouth: oral mucosae normal and moist mucous membranes Throat: posterior oropharynx normal Eyes Alignment and Position: alignment normal Periorbital: periorbital findings normal Sclera: sclerae normal Pupils: PERRL EOM: nystagmus ( To the left) Neck Neck: normal visual inspection, No anterior neck swelling, No lymphadenopathy and No midline deformity Thyroid: thyroid normal Chest Chest: normal inspection of the chest Resp Effort & Inspection: normal respiratory effort, able to speak in complete sentences and no respiratory distress Auscultation: clear to auscultation bilaterally, no rales, no rhonchi and no wheezes Cardio Rate: regular rate Rhythm: regular rhythm Heart Sounds: no click, no gallops, no murmurs and no rubs Pulses: normal peripheral pulses GI Inspection: non-distended Palpation: soft, no hepatosplenomegaly, No guarding and No tender Auscultation: normal bowel sounds Back/Spine/Pelvis Back: normal to inspection and No back tenderness Skin General: no rashes or lesions noted, No jaundice and No petechiae Neuro General: alert, oriented x3, gait normal and no focal motor deficits Cranial Nerves: nystagmus ( To the left) Speech: speech normal Extrem General: full ROM, no pedal edema and no calf tenderness Psych Appearance: other ( not verbally responsive) Course Orders Ordered: ED Orders 03/19/18 12:10 Complete Blood Count AUTO DIFF Stat Comprehensive Metabolic Panel Stat Ethanol (ETOH) Stat Partial Thromboplastin Time Stat Prothrombin Time INR Stat 03/19/18 12:18 Urine Drug Screen, Rapid Stat Sodium Chloride (Normal Saline 0.9%) 1,000 mls @ 1,000 mls/hr IV BOLUS PRN PRN Reason: Fluid replacement Last Infusion: 03/19/18 13:44 Dose: 0 mls/hr Admin: 03/19/18 12:27 Dose: 1,000 mls/hr Vital Signs - 8 hr 03/19/18 12:18 03/19/18 12:25 03/19/18 12:37 Temperature 98.4 F Pulse Rate 65 60 64 Respiratory Rate 26 H 17 16 Blood Pressure 119/73 Blood Pressure [Left Arm] 103/52 L 92/44 L Pulse Oximetry 100 100 98 03/19/18 13:05 03/19/18 13:30 03/19/18 14:10 Temperature Pulse Rate 63 71 62 Respiratory Rate 15 15 16 Blood Pressure Blood Pressure [Left Arm] 95/44 L 96/55 L 109/73 Pulse Oximetry 100 100 97 03/19/18 14:35 03/19/18 15:45 03/19/18 16:33 Temperature Pulse Rate 65 73 77 Respiratory Rate 15 17 16 Blood Pressure 111/72 Blood Pressure [Left Arm] 109/64 112/75 Pulse Oximetry 98 98 100 MDM - Altered Mental Status Medical Records Attestation: I reviewed the patient's medical records. Lab Data Attestation: I reviewed the patient's lab results. Result diagrams: 03/19/18 12:10 03/19/18 12:10 Lab Results 03/19/18 03/19/18 03/19/18 Range/Units 12:10 12:10 12:10 WBC 8.6 (4.5-11.0) X10^3/uL RBC 5.01 (4.5-5.9) X10^6/uL Hgb 16.1 (13.5-17.5) g/dL Hct 47.1 (41-53) % MCV 94.1 (80-100) fL MCH 32.2 (26-34) PG MCHC 34.2 (30-36) % RDW 14.1 (11.6-14.8) % Plt Count 173 (150-400) X10^3/uL Neut % (Auto) 63.6 (50-75) % Lymph % (Auto) 30.7 (25-40) % [place] % (Auto) 4.5 (3-14) % Eos % (Auto) 0.4 L (2-4) % Baso % (Auto) 0.8 (0-2) % Neut # (Auto) 5500 (5268-5546) /uL PT 11.8 (10.1-12.7) SECONDS INR 1.1 (0.9-1.3) APTT 29 (26.4-36.2) SECONDS Sodium 154 H (137-145) mmol/L Potassium 4.1 (3.4-5.1) mmol/L Chloride 111 H (98-107) mmol/L Carbon Dioxide 29 (22-32) mmol/L BUN 11 (9-20) mg/dL Creatinine 0.80 (0.66-1.25) mg/dL Estimated GFR > 60.0 (>60) mL/min BUN/Creatinine Ratio 13.8 (6-22) Glucose 84 (70-100) mg/dL Calcium 8.4 (8.4-10.2) mg/dL Total Bilirubin 0.2 (0.2-1.3) mg/dL AST 30 (17-59) IU/L ALT 29 (21-72) IU/L Alkaline Phosphatase 56 (38-126) U/L Total Protein 7.9 (6.3-8.2) g/dL Albumin 4.7 (3.5-5.0) g/dL Globulin 3.2 (1.7-4.1) g/dL Albumin/Globulin Ratio 1.5 (1.0-2.8) Ethyl Alcohol 395 mg/dL 03/19/18 Range/Units 16:04 WBC (4.5-11.0) X10^3/uL RBC (4.5-5.9) X10^6/uL Hgb (13.5-17.5) g/dL Hct (41-53) % MCV (80-100) fL MCH (26-34) PG MCHC (30-36) % RDW (11.6-14.8) % Plt Count (150-400) X10^3/uL Neut % (Auto) (50-75) % Lymph % (Auto) (25-40) % [place] % (Auto) (3-14) % Eos % (Auto) (2-4) % Baso % (Auto) (0-2) % Neut # (Auto) (7899-2827) /uL PT (10.1-12.7) SECONDS INR (0.9-1.3) APTT (26.4-36.2) SECONDS Sodium (137-145) mmol/L Potassium (3.4-5.1) mmol/L Chloride (98-107) mmol/L Carbon Dioxide (22-32) mmol/L BUN (9-20) mg/dL Creatinine (0.66-1.25) mg/dL Estimated GFR (>60) mL/min BUN/Creatinine Ratio (6-22) Glucose (70-100) mg/dL Calcium (8.4-10.2) mg/dL Total Bilirubin (0.2-1.3) mg/dL AST (17-59) IU/L ALT (21-72) IU/L Alkaline Phosphatase (38-126) U/L Total Protein (6.3-8.2) g/dL Albumin (3.5-5.0) g/dL Globulin (1.7-4.1) g/dL Albumin/Globulin Ratio (1.0-2.8) Ethyl Alcohol Cancelled mg/dL About 3:00 p.m. I evaluated the patient. He was arousable and conversant. Over the next hour he is up and out of bed on his own. He is oriented x3, capable of coherent conversation. His called in and wanted to evoke Rashad's Law. I interviewed police and EMS after the patient's arrival. The patient made no comment to them about intent to harm himself. The contents he made some kind of suicidal comment I reviewed the patient after he awoke. He said he had no intent of harming self, and never made such a comment. we made multiple requests to the that she come in with an affidavit of her concerns, so that we may proceed. DCR was contacted. There was no reluctance to see the patient, but the rash now for seeing him seemed inadequate without the affidavit. We discussed discharge, before the patient can be discharged he left out the ambulance door on his own. I did verbally discharge him, I discussed the potential consequences have his current alcohol consumption behavior. He has previously required intubation, and was deeply unresponsive upon admission to the ER this time. I assured him that was 1 of the potential consequences of his current behavior if he continued. I repeatedly offered the patient alcohol detox prior to his departure. He continuously declined. Discharge Plan Departure Patient Disposition: Home Clinical Impression: Alcoholism /alcohol abuse Interventions: ED Discharge Assessment Last Done: 03/19/18 16:33 Instructions: DI for Alcohol Abuse Activity Restrictions/Additional Instructions: I recommend to avoid alcohol use. I would further suggest you pursue detox and rehab assistance. return to the ER as needed. Prescriptions: No Action Unobtainable RF: 0
[2018-03-19] MEDS: SODIUM CHLORIDE 0.9% 1,000 ML 1000 ML IV (12:27)
[2018-03-19 12:40] LABS: Add Manual Diff / Slide Review NO; Basophils Percent Auto 0.8 % (0-2); Eosinophils Percent Auto 0.4 % (2-4); Hematocrit 47.1 % (41-53); Hemoglobin 16.1 g/dL (13.5-17.5); Lymphocytes Percent Auto 30.7 % (25-40); Mean Corpuscular HGB Conc 34.2 % (30-36); Mean Corpuscular Hemoglobin 32.2 PG (26-34); Mean Corpuscular Volume 94.1 fL (80-100); Monocytes Percent Auto 4.5 % (3-14); Neutrophils Absolute Auto 5500 /uL (3000-5900); Neutrophils Percent Auto 63.6 % (50-75); Platelet Count 173 X10^3/uL (150-400); Red Blood Cell Count 5.01 X10^6/uL (4.5-5.9); Red Cell Distribution Width 14.1 % (11.6-14.8); White Blood Cell Count 8.6 X10^3/uL (4.5-11.0)
[2018-03-19 12:44] LABS: INR 1.1 (0.9-1.3); Prothrombin Time 11.8 SECONDS (10.1-12.7)
[2018-03-19 12:47] LABS: PTT Partial Thromboplastin Tim 29 SECONDS (26.4-36.2)
[2018-03-19 12:50] LABS: Alanine Aminotransferase 29 IU/L (21-72); Albumin 4.7 g/dL (3.5-5.0); Albumin Globulin Ratio 1.5 (1.0-2.8); Alkaline Phosphatase 56 U/L (38-126); Aspartate Aminotransferase 30 IU/L (17-59); BUN Creatinine Ratio 13.8 (6-22); Bilirubin Total 0.2 mg/dL (0.2-1.3); Blood Urea Nitrogen 11 mg/dL (9-20); Calcium 8.4 mg/dL (8.4-10.2); Carbon Dioxide 29 mmol/L (22-32); Chloride 111 mmol/L (98-107); Estimated Glomerular Filt Rate > 60.0 mL/min (>60); Globulin 3.2 g/dL (1.7-4.1); Glucose 84 mg/dL (70-100); HEMOLYSIS < 15 (0-50); Potassium 4.1 mmol/L (3.4-5.1); Sodium 154 mmol/L (137-145); Total Protein 7.9 g/dL (6.3-8.2)
[2018-03-19 12:57] LABS: Ethanol (ETOH) 395 mg/dL
--- NOTE | 2018-03-19 15:40 | PC.NURSE ---
S/W . Demands that we hold him and send him to detox or rehab under [place] law. MD is made aware and DCR is called. They request to know why pt is suicidal today. Explained that pt has made no suicidal statements to staff but made them to his . Called and explained DCR would like an affidavit of his statements of SI and his want to . Call made to requesting this and she is aware that this is needed before they will consider him for this. A call is made to Isi in Care management and she in turn calls Lola Meyers to find out how we can best serve this pt and his . They state that if MD believes pt is safe pt can dc home to continue out patient treatment options. This is explained to pts via care management. Awaiting call back from DCR about involuntary admission to a detox center.
--- NOTE | 2018-03-19 16:02 | PC.NURSE ---
Long discussion w/ , whom I have had multiple contacts with. She is very frustrated as she has tried multiple avenues to 'get him help' but he has relapsed multiple times. Rashad's law has been enacted multiple times. Family members have disowned him and he is no longer allowed in the home r/t alcoholic behavior. Pt was recently out of state but behavior including aggression and increased etoh use continued. asked about 'making him go to rehab' or Rashad's law. Pt has been to rehab multiple times under Rashad's law and has relapsed quickly each time. denies active suicidal verbalizations but states that Abhinav has stated he 'doesn't care if he dies'. given support. She is currently in counseling and is trying to maintain boundaries for safety of herself and her toddler (medically fragile premie). She verbalized understanding that at this time Abhinav is a/o, stating he is not suicidal / homicidal and the provider has cleared him for discharge. She states she will spend the afternoon w/ family. Encouraged ongoing support. Encouraged to maintain safe boundaries. MD aware of conversation.
--- NOTE | 2018-03-21 09:33 | CM.SWNOTE ---
Late Entry/SW Note: This [employer] was contacted 03.19.18, RN explained pt was brought in by [employer]; SAM cruz unknown at time of RN call to this [employer]. Abhinav was found wandering around his home, supposedly, [employer] concerned Abhinav was becoming more and more somnolent (?) brought into the ER for eval. Cam demanding Abhinav be detained under [place]'s Law. RN requested that Cam come into the ER and complete an affidavit and Cam refused this. VOA/DCR has been consulted, per MATERIALS SCHEDULERMILLA Wells, and they had asked if Abhinav was actively suicidal and also what had changed since Abhinav's last detainment that has made Abhinav approp. for addtl. detainment and inpt treatment (?) During Abhinav's last admission here at ; [facility] Mariely Garcia had consulted DCR, administration (to include Quality/Risk Lola Medrano) family and outpt services to coordinate a safe, agreed upon, outpt treatment plan. Abhinav was agreeable to this but inevitably left AMA. This [employer] unable to respond to the ER on Saturday but I did place call to Lola Medrano to alert her that Abhinav had returned to the ER and was demanding detainment. Lola suggested the ER physician be the person to deem Abhinav safe to either DC home when sober vs request DCR for possible detainment. Relayed above to MILLA Wells. She explained Abhinav was denying suicidal ideation and was not trying to leave ER at this time. Abhinav was expected to be DC home after food and more sober. KANDI Weaver
== END 2018-03-19 16:35 | disposition home or self-care (01) ==
PROVIDERS: Emergency Provider Emergency Medicine; Family Provider Family Medicine; PCP Family Medicine
DX: F10.10 Alcohol abuse, uncomplicated (principal)
CPT/HCPCS: 36591; 80053; 80320; 85025; 85610; 85730; 96360; 99283; 99284

== ENCOUNTER 2018-03-24 18:00 | Inpatient (IN) | payer OTHER, MEDICAID, SELFPAY ==
[2018-03-04 01:42] VITALS: BMI 23.7
[2018-03-04 08:58] VITALS: PULSE 76; RESP 6; O2SAT 100
[2018-03-24] VITALS (12 sets, daily range): BP systolic 103–149; BP diastolic 56–116; PULSE 80–100; RESP 12–35; TEMP 36.3–37.2; O2SAT 97–100; BMI 22.6
[2018-03-24] MEDS: SODIUM CHLORIDE 0.9% 1,000 ML 1000 ML IV ×2 (18:00→18:34)
--- NOTE | 2018-03-24 18:04 | ED.OVERDOSE ---
HPI - Overdose <Edward Rg DO - Last Filed: 03/24/18 19:33> General Chief Complaint: Toxicology Problem Stated Complaint: alt mental status, suspected etoh od Time Seen by Provider: 03/24/18 18:03 Source: EMS Mode of arrival: EMS Limitations: altered mental status History of Present Illness HPI Narrative: 28-year-old severe alcoholic presents by EMS for evaluation alcohol overdose and respiratory depression requiring intubation. The patient was found with a bottle of vodka and a can of soup and was witnessed by passersby at a local druze. Patient had no obvious injuries and no drug paraphernalia. Patient has been seen and evaluated at our facility on multiple occasions with multiple intubations in even a few attempts at employing the [employer] for involuntary detox MD complaint: accidental overdose Onset (ago): hour(s) Related Data Home Medications Medication Instructions Recorded Confirmed Unobtainable 03/19/18 03/24/18 Allergies Allergy/AdvReac Type Severity Reaction Status Date / Time shrimp [SHRIMP] Allergy Severe THROAT Verified 11/10/17 13:32 SWELLING/HIVES diazepam [From VALIUM] Allergy Intermediate LEG Verified 11/10/17 13:32 SWELLING haloperidol [From HALDOL] Allergy Unknown DYSTONIA Verified 11/10/17 13:32 naproxen [NAPROXEN] AdvReac Mild NAUSEA/GI Verified 11/10/17 13:32 DISTRESS Review of Systems <Edward Rg DO - Last Filed: 03/24/18 19:33> Review of Systems unobtainable due to mental status Exam <Edward Rg DO - Last Filed: 03/24/18 19:33> Initial Vital Signs Initial Vital Signs: Vital Signs Pulse Rate 83 03/24/18 18:01 Respiratory Rate 24 03/24/18 18:01 Blood Pressure 133/94 H 03/24/18 18:01 Pulse Oximetry 100 03/24/18 18:01 <Rehan Olvera MD - Last Filed: 03/24/18 20:52> Initial Vital Signs Initial Vital Signs: Vital Signs Pulse Rate 83 03/24/18 18:01 Respiratory Rate 24 03/24/18 18:01 Blood Pressure 133/94 H 03/24/18 18:01 Pulse Oximetry 100 03/24/18 18:01 Const General: patient mechanically ventilated Nutritional Appearance: underweight Orientation: other (Non responsive due to medications associated with intubation paralysis) HENMT Head: normocephalic and atraumatic Ears: TM's normal bilaterally Nose: other Eyes General: appearance normal, both eyes and all related structures Alignment and Position: alignment normal and other (Pupils are equal at 5 mm. EOMI could not be evaluated due to paralysis.) Neck Neck: normal visual inspection and supple Chest Chest: normal inspection of the chest and other (Symmetric chest rise.) Resp Effort & Inspection: other (Clear to auscultation, symmetric breath sounds with BVM assist.) Cardio Rate: regular rate Rhythm: regular rhythm Heart Sounds: no click, no gallops, no murmurs and no rubs Pulses: normal peripheral pulses GI Inspection: normal to inspection and non-distended Palpation: soft, no hepatosplenomegaly and No pulsatile mass Auscultation: normal bowel sounds Back/Spine/Pelvis Back: normal to inspection and other (No evidence of trauma) Skin General: no rashes or lesions noted, No jaundice and No petechiae Neuro General: other (No neurologic response due to chemical paralysis) Extrem General: no clubbing, cyanosis or edema Course <Edward Rg DO - Last Filed: 03/24/18 19:33> Orders Ordered: ED Orders 03/24/18 18:03 XR chest 1V Stat 03/24/18 18:10 Complete Blood Count AUTO DIFF Stat Comprehensive Metabolic Panel Stat Ethanol (ETOH) Stat Hepatic (Liver) Panel Stat Lipase Stat Magnesium Stat Urine Drug Screen, Rapid Stat 03/24/18 18:13 Urinalysis and Microscopic Stat Fentanyl (Sublimaze) 100 mcg IV Q1H PRN PRN Reason: Pain, Severe (7-10) Last Admin: 03/24/18 19:10 Dose: 100 mcg Sodium Chloride (Normal Saline 0.9%) 1,000 mls @ 150 mls/hr IV CONT HOLGER Last Infusion: 03/24/18 20:27 Dose: 150 mls/hr Admin: 03/24/18 18:32 Dose: 150 mls/hr Propofol (Propofol) 1,000 mg in 100 mls @ 2.64 mls/hr IV TITRATE HOLGER; Protocol Last Titration: 03/24/18 20:28 Dose: 20 mcg/kg/min, 10.56 mls/hr Titration: 03/24/18 18:47 Dose: 20 mcg/kg/min, 10.56 mls/hr Titration: 03/24/18 18:38 Dose: 10 mcg/kg/min, 5.28 mls/hr Admin: 03/24/18 18:32 Dose: 5 mcg/kg/min, 2.64 mls/hr Discontinued Medications Sodium Chloride (Normal Saline 0.9%) 1,000 mls @ 1,000 mls/hr IV BOLUS ONE Stop: 03/24/18 19:25 Last Infusion: 03/24/18 19:38 Dose: 0 mls/hr Admin: 03/24/18 18:00 Dose: 1,000 mls/hr Sodium Chloride (Normal Saline 0.9%) 1,000 mls @ 1,000 mls/hr IV BOLUS ONE Stop: 03/24/18 19:32 Last Infusion: 03/24/18 19:38 Dose: 0 mls/hr Admin: 03/24/18 18:34 Dose: 1,000 mls/hr Rocuronium [place] (Zemuron) 53 mg 0.6 mg/kg (53 mg) IV NOW ONE Stop: 03/24/18 18:26 Last Admin: 03/24/18 18:31 Dose: 50 mg Vital Signs - 8 hr 03/24/18 18:01 03/24/18 18:10 03/24/18 18:20 Temperature 97.4 F L Pulse Rate 83 100 H 90 Respiratory Rate 24 12 22 Blood Pressure 133/94 H Blood Pressure [Left Arm] 131/116 H 141/95 H Pulse Oximetry 100 100 99 03/24/18 18:30 03/24/18 18:40 03/24/18 18:50 Temperature 97.5 F L Pulse Rate 90 90 95 H Respiratory Rate 35 H 32 H 32 H Blood Pressure Blood Pressure [Left Arm] 149/87 H 141/91 H 143/109 H Pulse Oximetry 99 98 03/24/18 19:00 03/24/18 19:20 03/24/18 19:40 Temperature 98.1 F Pulse Rate 96 H 80 86 Respiratory Rate 33 H 30 H 30 H Blood Pressure Blood Pressure [Left Arm] 134/82 126/81 121/75 Pulse Oximetry 100 97 98 <Rehan Olvera MD - Last Filed: 03/24/18 20:52> Course Narrative: I assumed care of this patient at change of shift, approximately 1800, from Dr. Rg. I reviewed his [facility] care with the attending paramedics. I reviewed the case with Dr. Rg. I re-evaluated the patient, and re-examined the patient. I agree with Dr. Rg's initial assessment. Decision to Admit Date: 03/24/18 Decision to Admit time: 19:12 Orders Ordered: ED Orders 03/24/18 18:03 XR chest 1V Stat 03/24/18 18:10 Complete Blood Count AUTO DIFF Stat Comprehensive Metabolic Panel Stat Ethanol (ETOH) Stat Hepatic (Liver) Panel Stat Lipase Stat Magnesium Stat Urine Drug Screen, Rapid Stat 03/24/18 18:13 Urinalysis and Microscopic Stat Fentanyl (Sublimaze) 100 mcg IV Q1H PRN PRN Reason: Pain, Severe (7-10) Last Admin: 03/24/18 19:10 Dose: 100 mcg Sodium Chloride (Normal Saline 0.9%) 1,000 mls @ 150 mls/hr IV CONT HOLGER Last Infusion: 03/24/18 20:27 Dose: 150 mls/hr Admin: 03/24/18 18:32 Dose: 150 mls/hr Propofol (Propofol) 1,000 mg in 100 mls @ 2.64 mls/hr IV TITRATE HOLGER; Protocol Last Titration: 03/24/18 20:28 Dose: 20 mcg/kg/min, 10.56 mls/hr Titration: 03/24/18 18:47 Dose: 20 mcg/kg/min, 10.56 mls/hr Titration: 03/24/18 18:38 Dose: 10 mcg/kg/min, 5.28 mls/hr Admin: 03/24/18 18:32 Dose: 5 mcg/kg/min, 2.64 mls/hr Discontinued Medications Sodium Chloride (Normal Saline 0.9%) 1,000 mls @ 1,000 mls/hr IV BOLUS ONE Stop: 03/24/18 19:25 Last Infusion: 03/24/18 19:38 Dose: 0 mls/hr Admin: 03/24/18 18:00 Dose: 1,000 mls/hr Sodium Chloride (Normal Saline 0.9%) 1,000 mls @ 1,000 mls/hr IV BOLUS ONE Stop: 03/24/18 19:32 Last Infusion: 03/24/18 19:38 Dose: 0 mls/hr Admin: 03/24/18 18:34 Dose: 1,000 mls/hr Rocuronium [place] (Zemuron) 53 mg 0.6 mg/kg (53 mg) IV NOW ONE Stop: 03/24/18 18:26 Last Admin: 03/24/18 18:31 Dose: 50 mg Vital Signs - 8 hr 03/24/18 18:01 03/24/18 18:10 03/24/18 18:20 Temperature 97.4 F L Pulse Rate 83 100 H 90 Respiratory Rate 24 12 22 Blood Pressure 133/94 H Blood Pressure [Left Arm] 131/116 H 141/95 H Pulse Oximetry 100 100 99 03/24/18 18:30 03/24/18 18:40 03/24/18 18:50 Temperature 97.5 F L Pulse Rate 90 90 95 H Respiratory Rate 35 H 32 H 32 H Blood Pressure Blood Pressure [Left Arm] 149/87 H 141/91 H 143/109 H Pulse Oximetry 99 98 03/24/18 19:00 03/24/18 19:20 03/24/18 19:40 Temperature 98.1 F Pulse Rate 96 H 80 86 Respiratory Rate 33 H 30 H 30 H Blood Pressure Blood Pressure [Left Arm] 134/82 126/81 121/75 Pulse Oximetry 100 97 98 MDM - Overdose <Edward Rg DO - Last Filed: 03/24/18 19:33> Lab Data Result diagrams: 03/24/18 18:10 03/24/18 18:10 Lab Results 03/24/18 03/24/18 03/24/18 Range/Units 18:10 18:10 18:10 WBC 9.1 (4.5-11.0) X10^3/uL RBC 4.71 (4.5-5.9) X10^6/uL Hgb 15.2 (13.5-17.5) g/dL Hct 45.4 (41-53) % MCV 96.4 (80-100) fL MCH 32.3 (26-34) PG MCHC 33.5 (30-36) % RDW 14.1 (11.6-14.8) % Plt Count 181 (150-400) X10^3/uL Neut % (Auto) 47.2 L (50-75) % Lymph % (Auto) 44.6 H (25-40) % [place] % (Auto) 6.6 (3-14) % Eos % (Auto) 0.9 L (2-4) % Baso % (Auto) 0.7 (0-2) % Neut # (Auto) 4300 (8244-3563) /uL Sodium 151 H (137-145) mmol/L Potassium 4.4 (3.4-5.1) mmol/L Chloride 108 H (98-107) mmol/L Carbon Dioxide 24 (22-32) mmol/L BUN 13 (9-20) mg/dL Creatinine 0.60 L (0.66-1.25) mg/dL Estimated GFR > 60.0 (>60) mL/min BUN/Creatinine Ratio 21.7 (6-22) Glucose 91 (70-100) mg/dL Calcium 7.9 L (8.4-10.2) mg/dL Magnesium 1.8 (1.6-2.3) mg/dL Total Bilirubin 0.2 (0.2-1.3) mg/dL Conjugated Bilirubin 0.0 (0.0-0.3) md/dL Unconjugated Bilirubin 0.0 (0.0-1.1) mg/dL AST 79 H (17-59) IU/L ALT 49 (21-72) IU/L Alkaline Phosphatase 49 (38-126) U/L Total Protein 7.4 (6.3-8.2) g/dL Albumin 4.3 (3.5-5.0) g/dL Globulin 3.1 (1.7-4.1) g/dL Albumin/Globulin Ratio 1.4 (1.0-2.8) Lipase 134 (23-300) U/L Urine Color Urine Appearance Urine pH (4.5-8.0) Ur Specific [place] (1.000-1.035) Urine Protein (Negative) Urine Glucose (UA) (Normal) g/dL Urine Ketones (NEGATIVE) Urine Occult Blood (Negative) Urine Nitrate (Negative) Urine Bilirubin (NEGATIVE) Urine Urobilinogen (0.2) E.U./dL Ur Leukocyte Esterase (NEGATIVE) Urine RBC (0-5/HPF) Urine WBC (0-5/HPF) Ur Squamous Epith Cells Amorphous Sediment Urine Bacteria (None) Ur Culture Indicated? Micro UA Comment Urine Opiates Screen Negative (Negative) Ur Oxycodone Screen Negative (Negative) Urine Methadone Screen Negative (Negative) Ur Barbiturates Screen Negative (Negative) U Tricyclic Antidepress Negative (Negative) Ur Phencyclidine Scrn Negative (Negative) Ur Amphetamines Screen Negative (Negative) U Methamphetamines Scrn Negative (Negative) Ur MDMA Scrn (Ecstasy) Negative (Negative) U Benzodiazepines Scrn Negative (Negative) Urine Cocaine Screen Negative (Negative) U Marijuana (THC) Screen Positive H (Negative) Ethyl Alcohol 435 H* mg/dL 03/24/18 Range/Units 18:13 WBC (4.5-11.0) X10^3/uL RBC (4.5-5.9) X10^6/uL Hgb (13.5-17.5) g/dL Hct (41-53) % MCV (80-100) fL MCH (26-34) PG MCHC (30-36) % RDW (11.6-14.8) % Plt Count (150-400) X10^3/uL Neut % (Auto) (50-75) % Lymph % (Auto) (25-40) % [place] % (Auto) (3-14) % Eos % (Auto) (2-4) % Baso % (Auto) (0-2) % Neut # (Auto) (6416-2881) /uL Sodium (137-145) mmol/L Potassium (3.4-5.1) mmol/L Chloride (98-107) mmol/L Carbon Dioxide (22-32) mmol/L BUN (9-20) mg/dL Creatinine (0.66-1.25) mg/dL Estimated GFR (>60) mL/min BUN/Creatinine Ratio (6-22) Glucose (70-100) mg/dL Calcium (8.4-10.2) mg/dL Magnesium (1.6-2.3) mg/dL Total Bilirubin (0.2-1.3) mg/dL Conjugated Bilirubin (0.0-0.3) md/dL Unconjugated Bilirubin (0.0-1.1) mg/dL AST (17-59) IU/L ALT (21-72) IU/L Alkaline Phosphatase (38-126) U/L Total Protein (6.3-8.2) g/dL Albumin (3.5-5.0) g/dL Globulin (1.7-4.1) g/dL Albumin/Globulin Ratio (1.0-2.8) Lipase (23-300) U/L Urine Color Yellow Urine Appearance Clear Urine pH 5.0 (4.5-8.0) Ur Specific [place] 1.025 (1.000-1.035) Urine Protein Negative (Negative) Urine Glucose (UA) Negative (Normal) g/dL Urine Ketones Negative (NEGATIVE) Urine Occult Blood Negative (Negative) Urine Nitrate Negative (Negative) Urine Bilirubin Negative (NEGATIVE) Urine Urobilinogen 0.2 (0.2) E.U./dL Ur Leukocyte Esterase Negative (NEGATIVE) Urine RBC None seen (0-5/HPF) Urine WBC 0-1/hpf (0-5/HPF) Ur Squamous Epith Cells 0-1 /hpf Amorphous Sediment 1+ Urine Bacteria None seen (None) Ur Culture Indicated? Cult not indicated Micro UA Comment Not Reportable Urine Opiates Screen (Negative) Ur Oxycodone Screen (Negative) Urine Methadone Screen (Negative) Ur Barbiturates Screen (Negative) U Tricyclic Antidepress (Negative) Ur Phencyclidine Scrn (Negative) Ur Amphetamines Screen (Negative) U Methamphetamines Scrn (Negative) Ur MDMA Scrn (Ecstasy) (Negative) U Benzodiazepines Scrn (Negative) Urine Cocaine Screen (Negative) U Marijuana (THC) Screen (Negative) Ethyl Alcohol mg/dL <Rehan Olvera MD - Last Filed: 03/24/18 20:52> Lab Data Lab Results 03/24/18 03/24/18 03/24/18 Range/Units 18:10 18:10 18:10 WBC 9.1 (4.5-11.0) X10^3/uL RBC 4.71 (4.5-5.9) X10^6/uL Hgb 15.2 (13.5-17.5) g/dL Hct 45.4 (41-53) % MCV 96.4 (80-100) fL MCH 32.3 (26-34) PG MCHC 33.5 (30-36) % RDW 14.1 (11.6-14.8) % Plt Count 181 (150-400) X10^3/uL Neut % (Auto) 47.2 L (50-75) % Lymph % (Auto) 44.6 H (25-40) % [place] % (Auto) 6.6 (3-14) % Eos % (Auto) 0.9 L (2-4) % Baso % (Auto) 0.7 (0-2) % Neut # (Auto) 4300 (6715-9084) /uL Sodium 151 H (137-145) mmol/L Potassium 4.4 (3.4-5.1) mmol/L Chloride 108 H (98-107) mmol/L Carbon Dioxide 24 (22-32) mmol/L BUN 13 (9-20) mg/dL Creatinine 0.60 L (0.66-1.25) mg/dL Estimated GFR > 60.0 (>60) mL/min BUN/Creatinine Ratio 21.7 (6-22) Glucose 91 (70-100) mg/dL Calcium 7.9 L (8.4-10.2) mg/dL Magnesium 1.8 (1.6-2.3) mg/dL Total Bilirubin 0.2 (0.2-1.3) mg/dL Conjugated Bilirubin 0.0 (0.0-0.3) md/dL Unconjugated Bilirubin 0.0 (0.0-1.1) mg/dL AST 79 H (17-59) IU/L ALT 49 (21-72) IU/L Alkaline Phosphatase 49 (38-126) U/L Total Protein 7.4 (6.3-8.2) g/dL Albumin 4.3 (3.5-5.0) g/dL Globulin 3.1 (1.7-4.1) g/dL Albumin/Globulin Ratio 1.4 (1.0-2.8) Lipase 134 (23-300) U/L Urine Color Urine Appearance Urine pH (4.5-8.0) Ur Specific [place] (1.000-1.035) Urine Protein (Negative) Urine Glucose (UA) (Normal) g/dL Urine Ketones (NEGATIVE) Urine Occult Blood (Negative) Urine Nitrate (Negative) Urine Bilirubin (NEGATIVE) Urine Urobilinogen (0.2) E.U./dL Ur Leukocyte Esterase (NEGATIVE) Urine RBC (0-5/HPF) Urine WBC (0-5/HPF) Ur Squamous Epith Cells Amorphous Sediment Urine Bacteria (None) Ur Culture Indicated? Micro UA Comment Urine Opiates Screen Negative (Negative) Ur Oxycodone Screen Negative (Negative) Urine Methadone Screen Negative (Negative) Ur Barbiturates Screen Negative (Negative) U Tricyclic Antidepress Negative (Negative) Ur Phencyclidine Scrn Negative (Negative) Ur Amphetamines Screen Negative (Negative) U Methamphetamines Scrn Negative (Negative) Ur MDMA Scrn (Ecstasy) Negative (Negative) U Benzodiazepines Scrn Negative (Negative) Urine Cocaine Screen Negative (Negative) U Marijuana (THC) Screen Positive H (Negative) Ethyl Alcohol 435 H* mg/dL 03/24/18 Range/Units 18:13 WBC (4.5-11.0) X10^3/uL RBC (4.5-5.9) X10^6/uL Hgb (13.5-17.5) g/dL Hct (41-53) % MCV (80-100) fL MCH (26-34) PG MCHC (30-36) % RDW (11.6-14.8) % Plt Count (150-400) X10^3/uL Neut % (Auto) (50-75) % Lymph % (Auto) (25-40) % [place] % (Auto) (3-14) % Eos % (Auto) (2-4) % Baso % (Auto) (0-2) % Neut # (Auto) (2620-6080) /uL Sodium (137-145) mmol/L Potassium (3.4-5.1) mmol/L Chloride (98-107) mmol/L Carbon Dioxide (22-32) mmol/L BUN (9-20) mg/dL Creatinine (0.66-1.25) mg/dL Estimated GFR (>60) mL/min BUN/Creatinine Ratio (6-22) Glucose (70-100) mg/dL Calcium (8.4-10.2) mg/dL Magnesium (1.6-2.3) mg/dL Total Bilirubin (0.2-1.3) mg/dL Conjugated Bilirubin (0.0-0.3) md/dL Unconjugated Bilirubin (0.0-1.1) mg/dL AST (17-59) IU/L ALT (21-72) IU/L Alkaline Phosphatase (38-126) U/L Total Protein (6.3-8.2) g/dL Albumin (3.5-5.0) g/dL Globulin (1.7-4.1) g/dL Albumin/Globulin Ratio (1.0-2.8) Lipase (23-300) U/L Urine Color Yellow Urine Appearance Clear Urine pH 5.0 (4.5-8.0) Ur Specific [place] 1.025 (1.000-1.035) Urine Protein Negative (Negative) Urine Glucose (UA) Negative (Normal) g/dL Urine Ketones Negative (NEGATIVE) Urine Occult Blood Negative (Negative) Urine Nitrate Negative (Negative) Urine Bilirubin Negative (NEGATIVE) Urine Urobilinogen 0.2 (0.2) E.U./dL Ur Leukocyte Esterase Negative (NEGATIVE) Urine RBC None seen (0-5/HPF) Urine WBC 0-1/hpf (0-5/HPF) Ur Squamous Epith Cells 0-1 /hpf Amorphous Sediment 1+ Urine Bacteria None seen (None) Ur Culture Indicated? Cult not indicated Micro UA Comment Not Reportable Urine Opiates Screen (Negative) Ur Oxycodone Screen (Negative) Urine Methadone Screen (Negative) Ur Barbiturates Screen (Negative) U Tricyclic Antidepress (Negative) Ur Phencyclidine Scrn (Negative) Ur Amphetamines Screen (Negative) U Methamphetamines Scrn (Negative) Ur MDMA Scrn (Ecstasy) (Negative) U Benzodiazepines Scrn (Negative) Urine Cocaine Screen (Negative) U Marijuana (THC) Screen (Negative) Ethyl Alcohol mg/dL Imaging Data Chest x-ray: Radiologist's impression: PROCEDURE: XR CHEST 1V INDICATIONS: intubated TECHNIQUE: One view of the chest was acquired. COMPARISON: None. FINDINGS: Surgical changes and devices: Endotracheal and nasogastric tubes are in normal position. Lungs and pleura: No pleural effusions or pneumothorax. Lungs are abnormal with a reduced inspiratory volume and a mild alveolar edema pattern. Mediastinum: Mediastinal contours appear normal. Heart size is normal. Bones and chest wall: No suspicious bony lesions. Overlying soft tissues appear unremarkable. IMPRESSION: Mild edema pattern, etiology uncertain. Endotracheal tube tip extends to the upper margin of the medial clavicular heads. It could be advanced approximately 2 cm but is in acceptable position at this time. The esophagogastric tube coils within the gastric body. Dictated by: Josse Grubbs M.D. on 03/24/2018 at 18:20 Approved by: Josse Grubbs M.D. on 03/24/2018 at 18:21 ECG Data Attestation: I personally reviewed and interpreted this ECG as follows: (legal administrator: Normal sinus rhythm without ectopy) MDM Narrative Medical decision making narrative: The patient arrives with alcohol overdose, resulting in respiratory failure. He has done this previously on multiple occasions. Other than requiring respiratory support, his vitals are currently stable. He is receiving warm IV fluids, a Isabel is in place to monitor fluid output. I have discussed the case with the hospitalist, Dr Pelayo. The patient will be admitted to ICU. Discharge Plan Departure Patient Disposition: Admitted As Inpatient Clinical Impression: Alcohol intoxication, Respiratory failure Discharge Date/Time: 03/24/18 20:29 Interventions: ED Discharge Assessment Last Done: 03/24/18 19:50 Admit Date/Time: 03/24/18 19:27 Admit Provider: Elyssa Pelayo
--- NOTE | 2018-03-24 18:09 | ED_ITS ---
HPI - Overdose <Edward Rg DO - Last Filed: 03/24/18 19:33> General Chief Complaint: Toxicology Problem Stated Complaint: alt mental status, suspected etoh od Time Seen by Provider: 03/24/18 18:03 Source: EMS Mode of arrival: EMS Limitations: altered mental status History of Present Illness HPI Narrative: 28-year-old severe alcoholic presents by EMS for evaluation alcohol overdose and respiratory depression requiring intubation. The patient was found with a bottle of vodka and a can of soup and was witnessed by passersby at a local [facility]. Patient had no obvious injuries and no drug paraphernalia. Patient has been seen and evaluated at our facility on multiple occasions with multiple intubations in even a few attempts at employing the [employer] [place] for involuntary detox MD complaint: accidental overdose Onset (ago): hour(s) Related Data Home Medications Medication Instructions Recorded Confirmed Unobtainable 03/19/18 03/24/18 Allergies Allergy/AdvReac Type Severity Reaction Status Date / Time shrimp [SHRIMP] Allergy Severe THROAT Verified 11/10/17 13:32 SWELLING/HIVES diazepam [From VALIUM] Allergy Intermediate LEG Verified 11/10/17 13:32 SWELLING haloperidol [From HALDOL] Allergy Unknown DYSTONIA Verified 11/10/17 13:32 naproxen [NAPROXEN] AdvReac Mild NAUSEA/GI Verified 11/10/17 13:32 DISTRESS Review of Systems <Edward Rg DO - Last Filed: 03/24/18 19:33> Review of Systems unobtainable due to mental status Exam <Edward Rg DO - Last Filed: 03/24/18 19:33> Initial Vital Signs Initial Vital Signs: Vital Signs Pulse Rate 83 03/24/18 18:01 Respiratory Rate 24 03/24/18 18:01 Blood Pressure 133/94 H 03/24/18 18:01 Pulse Oximetry 100 03/24/18 18:01 <Rehan Olvera MD - Last Filed: 03/24/18 20:52> Initial Vital Signs Initial Vital Signs: Vital Signs Pulse Rate 83 03/24/18 18:01 Respiratory Rate 24 03/24/18 18:01 Blood Pressure 133/94 H 03/24/18 18:01 Pulse Oximetry 100 03/24/18 18:01 Const General: patient mechanically ventilated Nutritional Appearance: underweight Orientation: other (Non responsive due to medications associated with intubation paralysis) HENMT Head: normocephalic and atraumatic Ears: TM's normal bilaterally Nose: other Eyes General: appearance normal, both eyes and all related structures Alignment and Position: alignment normal and other (Pupils are equal at 5 mm. EOMI could not be evaluated due to paralysis.) Neck Neck: normal visual inspection and supple Chest Chest: normal inspection of the chest and other (Symmetric chest rise.) Resp Effort & Inspection: other (Clear to auscultation, symmetric breath sounds with BVM assist.) Cardio Rate: regular rate Rhythm: regular rhythm Heart Sounds: no click, no gallops, no murmurs and no rubs Pulses: normal peripheral pulses GI Inspection: normal to inspection and non-distended Palpation: soft, no hepatosplenomegaly and No pulsatile mass Auscultation: normal bowel sounds Back/Spine/Pelvis Back: normal to inspection and other (No evidence of trauma) Skin General: no rashes or lesions noted, No jaundice and No petechiae Neuro General: other (No neurologic response due to chemical paralysis) Extrem General: no clubbing, cyanosis or edema Course <Edward Rg DO - Last Filed: 03/24/18 19:33> Orders Ordered: ED Orders 03/24/18 18:03 XR chest 1V Stat 03/24/18 18:10 Complete Blood Count AUTO DIFF Stat Comprehensive Metabolic Panel Stat Ethanol (ETOH) Stat Hepatic (Liver) Panel Stat Lipase Stat Magnesium Stat Urine Drug Screen, Rapid Stat 03/24/18 18:13 Urinalysis and Microscopic Stat Fentanyl (Sublimaze) 100 mcg IV Q1H PRN PRN Reason: Pain, Severe (7-10) Last Admin: 03/24/18 19:10 Dose: 100 mcg Sodium Chloride (Normal Saline 0.9%) 1,000 mls @ 150 mls/hr IV CONT HOLGER Last Infusion: 03/24/18 20:27 Dose: 150 mls/hr Admin: 03/24/18 18:32 Dose: 150 mls/hr Propofol (Propofol) 1,000 mg in 100 mls @ 2.64 mls/hr IV TITRATE HOLGER; Protocol Last Titration: 03/24/18 20:28 Dose: 20 mcg/kg/min, 10.56 mls/hr Titration: 03/24/18 18:47 Dose: 20 mcg/kg/min, 10.56 mls/hr Titration: 03/24/18 18:38 Dose: 10 mcg/kg/min, 5.28 mls/hr Admin: 03/24/18 18:32 Dose: 5 mcg/kg/min, 2.64 mls/hr Discontinued Medications Sodium Chloride (Normal Saline 0.9%) 1,000 mls @ 1,000 mls/hr IV BOLUS ONE Stop: 03/24/18 19:25 Last Infusion: 03/24/18 19:38 Dose: 0 mls/hr Admin: 03/24/18 18:00 Dose: 1,000 mls/hr Sodium Chloride (Normal Saline 0.9%) 1,000 mls @ 1,000 mls/hr IV BOLUS ONE Stop: 03/24/18 19:32 Last Infusion: 03/24/18 19:38 Dose: 0 mls/hr Admin: 03/24/18 18:34 Dose: 1,000 mls/hr Rocuronium [place] (Zemuron) 53 mg 0.6 mg/kg (53 mg) IV NOW ONE Stop: 03/24/18 18:26 Last Admin: 03/24/18 18:31 Dose: 50 mg Vital Signs - 8 hr 03/24/18 18:01 03/24/18 18:10 03/24/18 18:20 Temperature 97.4 F L Pulse Rate 83 100 H 90 Respiratory Rate 24 12 22 Blood Pressure 133/94 H Blood Pressure [Left Arm] 131/116 H 141/95 H Pulse Oximetry 100 100 99 03/24/18 18:30 03/24/18 18:40 03/24/18 18:50 Temperature 97.5 F L Pulse Rate 90 90 95 H Respiratory Rate 35 H 32 H 32 H Blood Pressure Blood Pressure [Left Arm] 149/87 H 141/91 H 143/109 H Pulse Oximetry 99 98 03/24/18 19:00 03/24/18 19:20 03/24/18 19:40 Temperature 98.1 F Pulse Rate 96 H 80 86 Respiratory Rate 33 H 30 H 30 H Blood Pressure Blood Pressure [Left Arm] 134/82 126/81 121/75 Pulse Oximetry 100 97 98 <Rehan Olvera MD - Last Filed: 03/24/18 20:52> Course Narrative: I assumed care of this patient at change of shift, approximately 1800, from Dr. Rg. I reviewed his [facility] care with the attending paramedics. I reviewed the case with Dr. gR. I re-evaluated the patient, and re-examined the patient. I agree with Dr. Rg's initial assessment. Decision to Admit Date: 03/24/18 Decision to Admit time: 19:12 Orders Ordered: ED Orders 03/24/18 18:03 XR chest 1V Stat 03/24/18 18:10 Complete Blood Count AUTO DIFF Stat Comprehensive Metabolic Panel Stat Ethanol (ETOH) Stat Hepatic (Liver) Panel Stat Lipase Stat Magnesium Stat Urine Drug Screen, Rapid Stat 03/24/18 18:13 Urinalysis and Microscopic Stat Fentanyl (Sublimaze) 100 mcg IV Q1H PRN PRN Reason: Pain, Severe (7-10) Last Admin: 03/24/18 19:10 Dose: 100 mcg Sodium Chloride (Normal Saline 0.9%) 1,000 mls @ 150 mls/hr IV CONT HOLGER Last Infusion: 03/24/18 20:27 Dose: 150 mls/hr Admin: 03/24/18 18:32 Dose: 150 mls/hr Propofol (Propofol) 1,000 mg in 100 mls @ 2.64 mls/hr IV TITRATE HOLGER; Protocol Last Titration: 03/24/18 20:28 Dose: 20 mcg/kg/min, 10.56 mls/hr Titration: 03/24/18 18:47 Dose: 20 mcg/kg/min, 10.56 mls/hr Titration: 03/24/18 18:38 Dose: 10 mcg/kg/min, 5.28 mls/hr Admin: 03/24/18 18:32 Dose: 5 mcg/kg/min, 2.64 mls/hr Discontinued Medications Sodium Chloride (Normal Saline 0.9%) 1,000 mls @ 1,000 mls/hr IV BOLUS ONE Stop: 03/24/18 19:25 Last Infusion: 03/24/18 19:38 Dose: 0 mls/hr Admin: 03/24/18 18:00 Dose: 1,000 mls/hr Sodium Chloride (Normal Saline 0.9%) 1,000 mls @ 1,000 mls/hr IV BOLUS ONE Stop: 03/24/18 19:32 Last Infusion: 03/24/18 19:38 Dose: 0 mls/hr Admin: 03/24/18 18:34 Dose: 1,000 mls/hr Rocuronium [place] (Zemuron) 53 mg 0.6 mg/kg (53 mg) IV NOW ONE Stop: 03/24/18 18:26 Last Admin: 03/24/18 18:31 Dose: 50 mg Vital Signs - 8 hr 03/24/18 18:01 03/24/18 18:10 03/24/18 18:20 Temperature 97.4 F L Pulse Rate 83 100 H 90 Respiratory Rate 24 12 22 Blood Pressure 133/94 H Blood Pressure [Left Arm] 131/116 H 141/95 H Pulse Oximetry 100 100 99 03/24/18 18:30 03/24/18 18:40 03/24/18 18:50 Temperature 97.5 F L Pulse Rate 90 90 95 H Respiratory Rate 35 H 32 H 32 H Blood Pressure Blood Pressure [Left Arm] 149/87 H 141/91 H 143/109 H Pulse Oximetry 99 98 03/24/18 19:00 03/24/18 19:20 03/24/18 19:40 Temperature 98.1 F Pulse Rate 96 H 80 86 Respiratory Rate 33 H 30 H 30 H Blood Pressure Blood Pressure [Left Arm] 134/82 126/81 121/75 Pulse Oximetry 100 97 98 MDM - Overdose <Edward Rg DO - Last Filed: 03/24/18 19:33> Lab Data Result diagrams: 03/24/18 18:10 03/24/18 18:10 Lab Results 03/24/18 03/24/18 03/24/18 Range/Units 18:10 18:10 18:10 WBC 9.1 (4.5-11.0) X10^3/uL RBC 4.71 (4.5-5.9) X10^6/uL Hgb 15.2 (13.5-17.5) g/dL Hct 45.4 (41-53) % MCV 96.4 (80-100) fL MCH 32.3 (26-34) PG MCHC 33.5 (30-36) % RDW 14.1 (11.6-14.8) % Plt Count 181 (150-400) X10^3/uL Neut % (Auto) 47.2 L (50-75) % Lymph % (Auto) 44.6 H (25-40) % [place] % (Auto) 6.6 (3-14) % Eos % (Auto) 0.9 L (2-4) % Baso % (Auto) 0.7 (0-2) % Neut # (Auto) 4300 (7701-9185) /uL Sodium 151 H (137-145) mmol/L Potassium 4.4 (3.4-5.1) mmol/L Chloride 108 H (98-107) mmol/L Carbon Dioxide 24 (22-32) mmol/L BUN 13 (9-20) mg/dL Creatinine 0.60 L (0.66-1.25) mg/dL Estimated GFR > 60.0 (>60) mL/min BUN/Creatinine Ratio 21.7 (6-22) Glucose 91 (70-100) mg/dL Calcium 7.9 L (8.4-10.2) mg/dL Magnesium 1.8 (1.6-2.3) mg/dL Total Bilirubin 0.2 (0.2-1.3) mg/dL Conjugated Bilirubin 0.0 (0.0-0.3) md/dL Unconjugated Bilirubin 0.0 (0.0-1.1) mg/dL AST 79 H (17-59) IU/L ALT 49 (21-72) IU/L Alkaline Phosphatase 49 (38-126) U/L Total Protein 7.4 (6.3-8.2) g/dL Albumin 4.3 (3.5-5.0) g/dL Globulin 3.1 (1.7-4.1) g/dL Albumin/Globulin Ratio 1.4 (1.0-2.8) Lipase 134 (23-300) U/L Urine Color Urine Appearance Urine pH (4.5-8.0) Ur Specific [place] (1.000-1.035) Urine Protein (Negative) Urine Glucose (UA) (Normal) g/dL Urine Ketones (NEGATIVE) Urine Occult Blood (Negative) Urine Nitrate (Negative) Urine Bilirubin (NEGATIVE) Urine Urobilinogen (0.2) E.U./dL Ur Leukocyte Esterase (NEGATIVE) Urine RBC (0-5/HPF) Urine WBC (0-5/HPF) Ur Squamous Epith Cells Amorphous Sediment Urine Bacteria (None) Ur Culture Indicated? Micro UA Comment Urine Opiates Screen Negative (Negative) Ur Oxycodone Screen Negative (Negative) Urine Methadone Screen Negative (Negative) Ur Barbiturates Screen Negative (Negative) U Tricyclic Antidepress Negative (Negative) Ur Phencyclidine Scrn Negative (Negative) Ur Amphetamines Screen Negative (Negative) U Methamphetamines Scrn Negative (Negative) Ur MDMA Scrn (Ecstasy) Negative (Negative) U Benzodiazepines Scrn Negative (Negative) Urine Cocaine Screen Negative (Negative) U Marijuana (THC) Screen Positive H (Negative) Ethyl Alcohol 435 H* mg/dL 03/24/18 Range/Units 18:13 WBC (4.5-11.0) X10^3/uL RBC (4.5-5.9) X10^6/uL Hgb (13.5-17.5) g/dL Hct (41-53) % MCV (80-100) fL MCH (26-34) PG MCHC (30-36) % RDW (11.6-14.8) % Plt Count (150-400) X10^3/uL Neut % (Auto) (50-75) % Lymph % (Auto) (25-40) % [place] % (Auto) (3-14) % Eos % (Auto) (2-4) % Baso % (Auto) (0-2) % Neut # (Auto) (7807-2175) /uL Sodium (137-145) mmol/L Potassium (3.4-5.1) mmol/L Chloride (98-107) mmol/L Carbon Dioxide (22-32) mmol/L BUN (9-20) mg/dL Creatinine (0.66-1.25) mg/dL Estimated GFR (>60) mL/min BUN/Creatinine Ratio (6-22) Glucose (70-100) mg/dL Calcium (8.4-10.2) mg/dL Magnesium (1.6-2.3) mg/dL Total Bilirubin (0.2-1.3) mg/dL Conjugated Bilirubin (0.0-0.3) md/dL Unconjugated Bilirubin (0.0-1.1) mg/dL AST (17-59) IU/L ALT (21-72) IU/L Alkaline Phosphatase (38-126) U/L Total Protein (6.3-8.2) g/dL Albumin (3.5-5.0) g/dL Globulin (1.7-4.1) g/dL Albumin/Globulin Ratio (1.0-2.8) Lipase (23-300) U/L Urine Color Yellow Urine Appearance Clear Urine pH 5.0 (4.5-8.0) Ur Specific [place] 1.025 (1.000-1.035) Urine Protein Negative (Negative) Urine Glucose (UA) Negative (Normal) g/dL Urine Ketones Negative (NEGATIVE) Urine Occult Blood Negative (Negative) Urine Nitrate Negative (Negative) Urine Bilirubin Negative (NEGATIVE) Urine Urobilinogen 0.2 (0.2) E.U./dL Ur Leukocyte Esterase Negative (NEGATIVE) Urine RBC None seen (0-5/HPF) Urine WBC 0-1/hpf (0-5/HPF) Ur Squamous Epith Cells 0-1 /hpf Amorphous Sediment 1+ Urine Bacteria None seen (None) Ur Culture Indicated? Cult not indicated Micro UA Comment Not Reportable Urine Opiates Screen (Negative) Ur Oxycodone Screen (Negative) Urine Methadone Screen (Negative) Ur Barbiturates Screen (Negative) U Tricyclic Antidepress (Negative) Ur Phencyclidine Scrn (Negative) Ur Amphetamines Screen (Negative) U Methamphetamines Scrn (Negative) Ur MDMA Scrn (Ecstasy) (Negative) U Benzodiazepines Scrn (Negative) Urine Cocaine Screen (Negative) U Marijuana (THC) Screen (Negative) Ethyl Alcohol mg/dL <Rehan Olvera MD - Last Filed: 03/24/18 20:52> Lab Data Lab Results 03/24/18 03/24/18 03/24/18 Range/Units 18:10 18:10 18:10 WBC 9.1 (4.5-11.0) X10^3/uL RBC 4.71 (4.5-5.9) X10^6/uL Hgb 15.2 (13.5-17.5) g/dL Hct 45.4 (41-53) % MCV 96.4 (80-100) fL MCH 32.3 (26-34) PG MCHC 33.5 (30-36) % RDW 14.1 (11.6-14.8) % Plt Count 181 (150-400) X10^3/uL Neut % (Auto) 47.2 L (50-75) % Lymph % (Auto) 44.6 H (25-40) % [place] % (Auto) 6.6 (3-14) % Eos % (Auto) 0.9 L (2-4) % Baso % (Auto) 0.7 (0-2) % Neut # (Auto) 4300 (9774-6839) /uL Sodium 151 H (137-145) mmol/L Potassium 4.4 (3.4-5.1) mmol/L Chloride 108 H (98-107) mmol/L Carbon Dioxide 24 (22-32) mmol/L BUN 13 (9-20) mg/dL Creatinine 0.60 L (0.66-1.25) mg/dL Estimated GFR > 60.0 (>60) mL/min BUN/Creatinine Ratio 21.7 (6-22) Glucose 91 (70-100) mg/dL Calcium 7.9 L (8.4-10.2) mg/dL Magnesium 1.8 (1.6-2.3) mg/dL Total Bilirubin 0.2 (0.2-1.3) mg/dL Conjugated Bilirubin 0.0 (0.0-0.3) md/dL Unconjugated Bilirubin 0.0 (0.0-1.1) mg/dL AST 79 H (17-59) IU/L ALT 49 (21-72) IU/L Alkaline Phosphatase 49 (38-126) U/L Total Protein 7.4 (6.3-8.2) g/dL Albumin 4.3 (3.5-5.0) g/dL Globulin 3.1 (1.7-4.1) g/dL Albumin/Globulin Ratio 1.4 (1.0-2.8) Lipase 134 (23-300) U/L Urine Color Urine Appearance Urine pH (4.5-8.0) Ur Specific [place] (1.000-1.035) Urine Protein (Negative) Urine Glucose (UA) (Normal) g/dL Urine Ketones (NEGATIVE) Urine Occult Blood (Negative) Urine Nitrate (Negative) Urine Bilirubin (NEGATIVE) Urine Urobilinogen (0.2) E.U./dL Ur Leukocyte Esterase (NEGATIVE) Urine RBC (0-5/HPF) Urine WBC (0-5/HPF) Ur Squamous Epith Cells Amorphous Sediment Urine Bacteria (None) Ur Culture Indicated? Micro UA Comment Urine Opiates Screen Negative (Negative) Ur Oxycodone Screen Negative (Negative) Urine Methadone Screen Negative (Negative) Ur Barbiturates Screen Negative (Negative) U Tricyclic Antidepress Negative (Negative) Ur Phencyclidine Scrn Negative (Negative) Ur Amphetamines Screen Negative (Negative) U Methamphetamines Scrn Negative (Negative) Ur MDMA Scrn (Ecstasy) Negative (Negative) U Benzodiazepines Scrn Negative (Negative) Urine Cocaine Screen Negative (Negative) U Marijuana (THC) Screen Positive H (Negative) Ethyl Alcohol 435 H* mg/dL 03/24/18 Range/Units 18:13 WBC (4.5-11.0) X10^3/uL RBC (4.5-5.9) X10^6/uL Hgb (13.5-17.5) g/dL Hct (41-53) % MCV (80-100) fL MCH (26-34) PG MCHC (30-36) % RDW (11.6-14.8) % Plt Count (150-400) X10^3/uL Neut % (Auto) (50-75) % Lymph % (Auto) (25-40) % [place] % (Auto) (3-14) % Eos % (Auto) (2-4) % Baso % (Auto) (0-2) % Neut # (Auto) (5485-0444) /uL Sodium (137-145) mmol/L Potassium (3.4-5.1) mmol/L Chloride (98-107) mmol/L Carbon Dioxide (22-32) mmol/L BUN (9-20) mg/dL Creatinine (0.66-1.25) mg/dL Estimated GFR (>60) mL/min BUN/Creatinine Ratio (6-22) Glucose (70-100) mg/dL Calcium (8.4-10.2) mg/dL Magnesium (1.6-2.3) mg/dL Total Bilirubin (0.2-1.3) mg/dL Conjugated Bilirubin (0.0-0.3) md/dL Unconjugated Bilirubin (0.0-1.1) mg/dL AST (17-59) IU/L ALT (21-72) IU/L Alkaline Phosphatase (38-126) U/L Total Protein (6.3-8.2) g/dL Albumin (3.5-5.0) g/dL Globulin (1.7-4.1) g/dL Albumin/Globulin Ratio (1.0-2.8) Lipase (23-300) U/L Urine Color Yellow Urine Appearance Clear Urine pH 5.0 (4.5-8.0) Ur Specific [place] 1.025 (1.000-1.035) Urine Protein Negative (Negative) Urine Glucose (UA) Negative (Normal) g/dL Urine Ketones Negative (NEGATIVE) Urine Occult Blood Negative (Negative) Urine Nitrate Negative (Negative) Urine Bilirubin Negative (NEGATIVE) Urine Urobilinogen 0.2 (0.2) E.U./dL Ur Leukocyte Esterase Negative (NEGATIVE) Urine RBC None seen (0-5/HPF) Urine WBC 0-1/hpf (0-5/HPF) Ur Squamous Epith Cells 0-1 /hpf Amorphous Sediment 1+ Urine Bacteria None seen (None) Ur Culture Indicated? Cult not indicated Micro UA Comment Not Reportable Urine Opiates Screen (Negative) Ur Oxycodone Screen (Negative) Urine Methadone Screen (Negative) Ur Barbiturates Screen (Negative) U Tricyclic Antidepress (Negative) Ur Phencyclidine Scrn (Negative) Ur Amphetamines Screen (Negative) U Methamphetamines Scrn (Negative) Ur MDMA Scrn (Ecstasy) (Negative) U Benzodiazepines Scrn (Negative) Urine Cocaine Screen (Negative) U Marijuana (THC) Screen (Negative) Ethyl Alcohol mg/dL Imaging Data Chest x-ray: Radiologist's impression: PROCEDURE: XR CHEST 1V INDICATIONS: intubated TECHNIQUE: One view of the chest was acquired. COMPARISON: None. FINDINGS: Surgical changes and devices: Endotracheal and nasogastric tubes are in normal position. Lungs and pleura: No pleural effusions or pneumothorax. Lungs are abnormal with a reduced inspiratory volume and a mild alveolar edema pattern. Mediastinum: Mediastinal contours appear normal. Heart size is normal. Bones and chest wall: No suspicious bony lesions. Overlying soft tissues appear unremarkable. IMPRESSION: Mild edema pattern, etiology uncertain. Endotracheal tube tip extends to the upper margin of the medial clavicular heads. It could be advanced approximately 2 cm but is in acceptable position at this time. The esophagogastric tube coils within the gastric body. Dictated by: Josse Grubbs M.D. on 03/24/2018 at 18:20 Approved by: Josse Grubbs M.D. on 03/24/2018 at 18:21 ECG Data Attestation: I personally reviewed and interpreted this ECG as follows: ( satellite project site monitor: Normal sinus rhythm without ectopy) MDM Narrative Medical decision making narrative: The patient arrives with alcohol overdose, resulting in respiratory failure. He has done this previously on multiple occasions. Other than requiring respiratory support, his vitals are currently stable. He is receiving warm IV fluids, a Isabel is in place to monitor fluid output. I have discussed the case with the hospitalist, Dr Pelayo. The patient will be admitted to ICU. Discharge Plan Departure Patient Disposition: Admitted As Inpatient Clinical Impression: Alcohol intoxication, Respiratory failure Discharge Date/Time: 03/24/18 20:29 Interventions: ED Discharge Assessment Last Done: 03/24/18 19:50 Admit Date/Time: 03/24/18 19:27 Admit Provider: Elyssa Pelayo
[2018-03-24] MEDS: ROCURONIUM 50 MG/5 ML VIAL 53 MG IV (18:31)
[2018-03-24] MEDS: PROPOFOL 1,000 MG/100 ML VIAL 2.64 MG IV (18:32)
[2018-03-24] MEDS: SODIUM CHLORIDE 0.9% 1,000 ML 150 ML IV (18:32)
[2018-03-24 18:33] LABS: Add Manual Diff / Slide Review NO; Basophils Percent Auto 0.7 % (0-2); Eosinophils Percent Auto 0.9 % (2-4); Hematocrit 45.4 % (41-53); Hemoglobin 15.2 g/dL (13.5-17.5); Lymphocytes Percent Auto 44.6 % (25-40); Mean Corpuscular HGB Conc 33.5 % (30-36); Mean Corpuscular Hemoglobin 32.3 PG (26-34); Mean Corpuscular Volume 96.4 fL (80-100); Monocytes Percent Auto 6.6 % (3-14); Neutrophils Absolute Auto 4300 /uL (3000-5900); Neutrophils Percent Auto 47.2 % (50-75); Platelet Count 181 X10^3/uL (150-400); Red Blood Cell Count 4.71 X10^6/uL (4.5-5.9); Red Cell Distribution Width 14.1 % (11.6-14.8); White Blood Cell Count 9.1 X10^3/uL (4.5-11.0)
[2018-03-24 18:44] LABS: Alanine Aminotransferase 49 IU/L (21-72); Albumin 4.3 g/dL (3.5-5.0); Albumin Globulin Ratio 1.4 (1.0-2.8); Alkaline Phosphatase 49 U/L (38-126); Aspartate Aminotransferase 79 IU/L (17-59); BUN Creatinine Ratio 21.7 (6-22); Bilirubin Total 0.2 mg/dL (0.2-1.3); Blood Urea Nitrogen 13 mg/dL (9-20); Calcium 7.9 mg/dL (8.4-10.2); Carbon Dioxide 24 mmol/L (22-32); Chloride 108 mmol/L (98-107); Estimated Glomerular Filt Rate > 60.0 mL/min (>60); Globulin 3.1 g/dL (1.7-4.1); Glucose 91 mg/dL (70-100); HEMOLYSIS < 15 (0-50); Lipase 134 U/L (23-300); Magnesium 1.8 mg/dL (1.6-2.3); Potassium 4.4 mmol/L (3.4-5.1); Sodium 151 mmol/L (137-145); Total Protein 7.4 g/dL (6.3-8.2)
[2018-03-24 18:45] LABS: Urine Amphetamines Negative (Negative); Urine Barbiturates Negative (Negative); Urine Benzodiazepines Negative (Negative); Urine Cocaine Negative (Negative); Urine MDMA Negative (Negative); Urine Methadone Negative (Negative); Urine Methamphetamines Negative (Negative); Urine Morphine/Opi cutoff 2000 Negative (Negative); Urine Oxycodone Negative (Negative); Urine Phencyclidine Negative (Negative); Urine Tetrahydrocannabinol Positive (Negative); Urine Tricyclic Antidepressant Negative (Negative)
[2018-03-24 18:51] LABS: Bacteria Urine None Seen; RBC Urine None Seen (0-5/HPF)
[2018-03-24 18:55] LABS: Ethanol (ETOH) 435 mg/dL
[2018-03-24 18:58] LABS: Appearance Urine UA CLEAR; Bilirubin Urine UA NEGATIVE (NEGATIVE); Color Urine UA YELLOW; Glucose Urine UA NEGATIVE (Normal); Ketones Urine UA NEGATIVE (NEGATIVE); Leukocyte Esterase Urine UA NEGATIVE (NEGATIVE); Nitrite Urine UA NEGATIVE (Negative); Occult Blood Urine UA NEGATIVE (Negative); Protein Urine UA NEGATIVE (Negative); Specific Gravity Urine UA 1.025 (1.000-1.035); Urobilinogen Urine UA 0.2 E.U./dL (0.2)
[2018-03-24] MEDS: fentaNYL 100 MCG/2 ML INJ IV (19:10)
[2018-03-24 19:18] LABS: Squamous Epithelial Cell Urine 0-1 /HPF; WBC Urine 0-1/HPF (0-5/HPF)
[2018-03-24 19:19] LABS: Amorphous Sediment Urine 1+; Culture Indicated Urine Cult Not Indicated
[2018-03-24 20:45] LABS: HCO3 ABG 23 mmol/L (23-27); Oxygen Saturation ABG 99 % (95-100); PCO2 ABG 51.6 mmHg (35-45); PO2 ABG 157 mmHg (80-105); TCO2 ABG 24 mmol/L (23-27); pH ABG 7.25 (7.35-7.45)
[2018-03-24 20:46] LABS: Fractionated Inspired Oxygen 100
--- NOTE | 2018-03-24 21:21 | PC.NURSE ---
barrera bass Pt admitted from ER. Pt sedated with propofol, intubated, on vent. Hard cervical collar in place. Nose has dried blood around each nare, no active bleeding. NGT to left nare, connected to LIS, small amount of brown chunky liquid in tubing. Called and notified Dr. Alonzo Pelayo of pt's arrival to ICU.
--- NOTE | 2018-03-24 22:26 | P.HP_ITS ---
History of Present Illness Date Patient Seen: 03/24/18 Time Patient Seen: 22:23 Chief complaint: alt mental status, suspected etoh od Narrative: 28-year-old man with history of alcohol abuse who was brought to the [facility] Emergency room by paramedics. He was found unresponsive at a [facility]. He was intubated by paramedics for airway protection. He was found to have blood alcohol level of 486. Urine tox screen was positive for marijuana. He was admitted to the intensive care unit for acute alcohol intoxication. Patient had several recent hospital admissions for similar diagnosis. He was last admitted at [facility] on March 04, 2018. Patient History Medical History Alcoholism (Acute) Depression (Acute) Eating disorder (Acute) Epilepsy (Acute) Low back pain (Acute) Family & Social History Family History: Reviewed 03/24/18 by Elyssa Pelayo MD Social History: household members spouse,family Tobacco & Substance use: Smoking Status Unknown if ever smoked alcohol intake current alcohol intake frequency 3 or more drinks per day Substance Use Type marijuana Meds Home Medications Medication Instructions Recorded Confirmed Type Unobtainable 03/19/18 03/24/18 History Allergies Allergy/AdvReac Type Severity Reaction Status Date / Time shrimp [SHRIMP] Allergy Severe THROAT Verified 11/10/17 13:32 SWELLING/HIVES diazepam [From VALIUM] Allergy Intermediate LEG Verified 11/10/17 13:32 SWELLING haloperidol [From HALDOL] Allergy Unknown DYSTONIA Verified 11/10/17 13:32 naproxen [NAPROXEN] AdvReac Mild NAUSEA/GI Verified 11/10/17 13:32 DISTRESS Review of Systems Review of Systems Complete review of system is unable to obtain due to patient is sedated on the ventilator. Exam Vital Signs (past 8 hours): - 03/24/18 18:01 03/24/18 18:10 03/24/18 18:20 Temperature 97.4 F L Pulse Rate 83 100 H 90 Respiratory Rate 24 12 22 Blood Pressure 133/94 H Blood Pressure [Left Arm] 131/116 H 141/95 H Pulse Oximetry 100 100 99 03/24/18 18:30 03/24/18 18:40 03/24/18 18:50 Temperature 97.5 F L Pulse Rate 90 90 95 H Respiratory Rate 35 H 32 H 32 H Blood Pressure Blood Pressure [Left Arm] 149/87 H 141/91 H 143/109 H Pulse Oximetry 99 98 03/24/18 19:00 03/24/18 19:20 03/24/18 19:40 Temperature 98.1 F Pulse Rate 96 H 80 86 Respiratory Rate 33 H 30 H 30 H Blood Pressure Blood Pressure [Left Arm] 134/82 126/81 121/75 Pulse Oximetry 100 97 98 Oxygen Delivery Method Mechanical Ventilation Oxygen Flow Rate 5 Narrative Exam Narrative: GENERAL: Young man who was sedated on the ventilator HEENT: Head normocephalic, atraumatic. Eyes pupils equal round NECK: Supple, no JVD, CHEST: Breath sounds equal bilaterally, no wheezes rales or rhonchi. CARDIAC: Regular rate and rhythm without murmurs, rubs or gallops. ABDOMEN: Soft, bowel sounds all 4 quadrants. EXTREMITIES: Normal range of motion, no clubbing or edema. NEUROLOGICAL: Sedated on the ventilator. SKIN: Warm, dry, no petechiae, no rashes or lesions. Objective Labs Result Diagrams: 03/24/18 18:10 03/24/18 18:10 Labs: Laboratory Results - last 24 hr 03/24/18 03/24/18 03/24/18 18:05 18:10 18:10 WBC 9.1 RBC 4.71 Hgb 15.2 Hct 45.4 MCV 96.4 MCH 32.3 MCHC 33.5 RDW 14.1 Plt Count 181 Neut % (Auto) 47.2 L Lymph % (Auto) 44.6 H [place] % (Auto) 6.6 Eos % (Auto) 0.9 L Baso % (Auto) 0.7 Neut # (Auto) 4300 ABG pH 7.25 L* ABG pCO2 51.6 H ABG pO2 157 H ABG HCO3 23 ABG Total CO2 24 ABG O2 Saturation 99 ABG Base Excess -4.0 L FiO2 100 Sodium 151 H Potassium 4.4 Chloride 108 H Carbon Dioxide 24 BUN 13 Creatinine 0.60 L Estimated GFR > 60.0 BUN/Creatinine Ratio 21.7 Glucose 91 Calcium 7.9 L Magnesium 1.8 Total Bilirubin 0.2 Conjugated Bilirubin 0.0 Unconjugated Bilirubin 0.0 AST 79 H ALT 49 Alkaline Phosphatase 49 Total Protein 7.4 Albumin 4.3 Globulin 3.1 Albumin/Globulin Ratio 1.4 Lipase 134 Urine Color Urine Appearance Urine pH Ur Specific [place] Urine Protein Urine Glucose (UA) Urine Ketones Urine Occult Blood Urine Nitrate Urine Bilirubin Urine Urobilinogen Ur Leukocyte Esterase Urine RBC Urine WBC Ur Squamous Epith Cells Amorphous Sediment Urine Bacteria Ur Culture Indicated? Micro UA Comment Nasal Screen MRSA (PCR) Urine Opiates Screen Ur Oxycodone Screen Urine Methadone Screen Ur Barbiturates Screen U Tricyclic Antidepress Ur Phencyclidine Scrn Ur Amphetamines Screen U Methamphetamines Scrn Ur MDMA Scrn (Ecstasy) U Benzodiazepines Scrn Urine Cocaine Screen U Marijuana (THC) Screen Ethyl Alcohol 435 H* 03/24/18 03/24/18 03/24/18 18:10 18:13 20:30 WBC RBC Hgb Hct MCV MCH MCHC RDW Plt Count Neut % (Auto) Lymph % (Auto) [place] % (Auto) Eos % (Auto) Baso % (Auto) Neut # (Auto) ABG pH ABG pCO2 ABG pO2 ABG HCO3 ABG Total CO2 ABG O2 Saturation ABG Base Excess FiO2 Sodium Potassium Chloride Carbon Dioxide BUN Creatinine Estimated GFR BUN/Creatinine Ratio Glucose Calcium Magnesium Total Bilirubin Conjugated Bilirubin Unconjugated Bilirubin AST ALT Alkaline Phosphatase Total Protein Albumin Globulin Albumin/Globulin Ratio Lipase Urine Color Yellow Urine Appearance Clear Urine pH 5.0 Ur Specific [place] 1.025 Urine Protein Negative Urine Glucose (UA) Negative Urine Ketones Negative Urine Occult Blood Negative Urine Nitrate Negative Urine Bilirubin Negative Urine Urobilinogen 0.2 Ur Leukocyte Esterase Negative Urine RBC None seen Urine WBC 0-1/hpf Ur Squamous Epith Cells 0-1 /hpf Amorphous Sediment 1+ Urine Bacteria None seen Ur Culture Indicated? Cult not indicated Micro UA Comment Not Reportable Nasal Screen MRSA (PCR) Negative for mrsa Urine Opiates Screen Negative Ur Oxycodone Screen Negative Urine Methadone Screen Negative Ur Barbiturates Screen Negative U Tricyclic Antidepress Negative Ur Phencyclidine Scrn Negative Ur Amphetamines Screen Negative U Methamphetamines Scrn Negative Ur MDMA Scrn (Ecstasy) Negative U Benzodiazepines Scrn Negative Urine Cocaine Screen Negative U Marijuana (THC) Screen Positive H Ethyl Alcohol Assessment & Plan Plan: Assessment/Plan Narrative: 1. Acute respiratory failure secondary to severe alcohol intoxication: We will keep him on the ventilator tonight. Start weaning trial in the morning. He will most likely be able to extubated tomorrow morning.. Patient has had frequent episodes of similar presentations 2. Acute hypernatremia probably secondary to dehydration volume depletion. He has received aggressive IV hydration with normal saline. Change IV fluid to D5 half normal saline at 125 cc an hour. Recheck electrolytes in the morning 3. Severe alcohol dependence alcohol abuse: He needs alcohol treatment program. We will discuss the case with manager of case management in the morning.
[2018-03-24] MEDS: DEXTROSE 5%-0.45% NS 1,000 ML 125 ML IV (23:48)
[2018-03-25] VITALS (14 sets, daily range): BP systolic 89–127; BP diastolic 51–77; PULSE 73–103; RESP 14–23; O2SAT 92–100
[2018-03-25] MEDS: fentaNYL 100 MCG/2 ML INJ IV ×5 (00:07→07:13)
[2018-03-25] MEDS: PROPOFOL 1,000 MG/100 ML VIAL 21.12 MG IV (00:47)
[2018-03-25] MEDS: PROPOFOL 1,000 MG/100 ML VIAL 36.96 MG IV (05:06)
[2018-03-25 05:16] LABS: Blood Urea Nitrogen 12 mg/dL (9-20); Calcium 7.8 mg/dL (8.4-10.2); Carbon Dioxide 22 mmol/L (22-32); Chloride 112 mmol/L (98-107); Estimated Glomerular Filt Rate > 60.0 mL/min (>60); Ethanol (ETOH) 182 mg/dL; Glucose 81 mg/dL (70-100); HEMOLYSIS < 15 (0-50); Potassium 3.6 mmol/L (3.4-5.1); Sodium 147 mmol/L (137-145)
--- NOTE | 2018-03-25 06:52 | PC.NURSE ---
Addendum entered by Lisseth Hermosillo R.N. 03/25/18 09:52: Dr Polanco here at 0730 with orders to titrate sedation, contact RT, and trial to extubate patient. Propofol at 20mcg/min, then off, patient rouses and follows directions quickly, had removed NGT on own, restraints removed. He was cooperative with process, coughed up thick yellow sputum, SpO2 91-93% on RA for about 15min, then increased to > 94% after deep breathing. Mariely from in room, speaking with patient extensively about DC plans. Patient ate breakfast without difficulty. Original Note: Patient is on ventilator, FIO2 .60 throughout night, decreased to .40 at 0645, RR 22, down to 16, TV at 500 PEEP 5, SpO2 >98%, breath sounds coarse throughout, scant white sputum sx from ETT. Propofol gtt titrated from 40mcg/min at beginning of shift to 70mcg/min to keep patient sedated while vented, 100mcg Fentanyl IV given per prn orders. Soft wrist restraints on to keep patient from self extubation. Serum ETOH level 182 this am.
[2018-03-25] MEDS: DEXTROSE 5%-0.45% NS 1,000 ML 125 ML IV (07:32)
--- NOTE | 2018-03-25 08:23 | RT ---
Verbal order, Dr. Newberry: extubate now. Pt was extubated to room air without complications. O2 sats on room air: 97%. Pt has stong productive cough. Dr Newberry at bedside post extubation doing his exam. general house worker Liseth at bedside now also. Pt is alert and oriented.
--- NOTE | 2018-03-25 14:16 | CM.SWNOTE ---
COMMUNITY RELATIONS OFFICER/Note: Reviewed chart. Patient is a 28yr old male admitted to I.. altered mental status, suspected ETOH overdose. Patient known to this COMMUNITY RELATIONS OFFICER from previous admits to [facility] (see notes for details). Blood alcohol level upon admit was 486. Marijuana positive. Patient found unresponsive near [facility] in [place]. Paramedics called and patient intubated prior to arrival for airway protection. COMMUNITY RELATIONS OFFICER received call this AM from ICU staff indicating that patient has just been extubated at approximately 8:30AM. Patient reporting to staff that he has outpatient recovery plan in place. COMMUNITY RELATIONS OFFICER met with patient explained role. Patient reports that I messed up. He reports that he is enrolled in [facility] at [facility] in [place]. Unfortunately, patient was last seen on March 05. Patient indicates that he has been out of town the last few weeks helping his uncle whom is a truck bench mechanic. Patient reports that he plans to return to [facility] at [facility] tomorrow. Patient provided COMMUNITY RELATIONS OFFICER with permission to call [facility] and confirm appointment. Consent signed. Dr. Polanco entered room during interview. Patient denies suicidal or homicidal ideation to COMMUNITY RELATIONS OFFICER and MD. Patient reports that he would like to resume care in the outpatient setting. Patient denies needing detox from alcohol and would like to go home today. COMMUNITY RELATIONS OFFICER placed call to [facility] at [phone], confirmed with Joanna that patient can come to [facility] tomorrow 03-26-18 at 1:00pm. In addition, requested that private session be initiated for patient secondary to his ETOH history and multiple hospitalizations. [facility] agreed and patient scheduled to be seen tomorrow 03-26-18 after group at 3:30pm by Brooke Kate ph# [phone] ext# [phone]. Patient provided with name/number of all above appointments on separate page. Copy scanned into patient's record. In addition, to the above, COMMUNITY RELATIONS OFFICER placed call to [facility]/crisis line to discuss case [facility] dispatch. Again, they report because patient is voluntarily, in agreement to seek treatment and does report suicidal ideations they will not dispatch [facility]. COMMUNITY RELATIONS OFFICER asked patient if he would like team to call his spouse or Mother re: above plan. Patient declined. P: Patient determined to be medically stable for discharge today. Outpatient appointments for substance abuse/mental health made and provided to patient in writing. RN updated. KANDI Dickerson CM Discharge Assessment Start: 03/25/18 13:51 Freq: Status: Discharge Protocol: Document 03/25/18 14:12 KJS (Rec: 03/25/18 14:16 KJS [id number]) Discharge Planning Assessment Assigned Cuff Maker Mariely Hines Contact Information Alta Herr (Mother) [phone] Advance Directives? No Advance Directives on File No History Provided By Patient Medical Record Has Patient been admitted in last 30 Yes days? Comment Discharged from I.. on . Prior Living Arrangements Apartment/Condo Household Members spouse family Type of transporation used prior to Relies on Others admit Independent with ADL's Yes Is patient alert and oriented? Yes Caregiver for Another No Patient/Family Preference Drug/Alcohol Rehab Comment Multiple D/A stays, multiple relapses once home. Comment Unable to remain sober. Constant suicidal ideation/ behaviors Discharge Plan Home Transportation Arrangement Pending Referrals Initiated Other Additional Comment Per RN: Patient requiring call to [facility]/Crisis for evaluation under [place]'s Law guidelines. Pt. requesting to leave AMA today. DCR once medically stable enough for evaluation Whiteboard Updated in Patient Room with Yes name and ext. # of Cuff Maker Review Status In Process Please Provide Date Initial DC 03/25/18 Assessment Was Performed Next Review Type Continued Stay Review
--- NOTE | 2018-03-25 17:34 | PM.DS.1 ---
History of Present Illness Chief complaint: alt mental status, suspected etoh od Narrative: 28-year-old man with history of alcohol abuse who was brought to the [facility] Emergency room by paramedics. He was found unresponsive at a [facility]. He was intubated by paramedics for airway protection. He was found to have blood alcohol level of 486. Urine tox screen was positive for marijuana. He was admitted to the intensive care unit for acute alcohol intoxication. Patient had several recent hospital admissions for similar diagnosis. He was last admitted at [facility] on March 04, 2018. Discharge Providers Date of admission: 03/24/18 19:27 Primary care physician: Luigi Bains MD Consults: 03/24/18 22:33 Consult to Cut And Cover Line Worker Routine Comment: Discharge provider: Jaime Polanco MD Discharge Date: 03/25/18 Summary Discharge Diagnosis: 1. Acute alcohol intoxication 2. Chronic alcoholism, alcohol dependency 3. Acute hyponatremia 4. Intubated to protect airway secondary to 1. Hospital Course: Patient was intubated by medics prior to hospital arrival. He was kept on ventilator overnight and successfully extubated in the morning. He did not have true respiratory failure in common usage of the word since the intubation was just to protect his airway due to his alcohol intoxication with a blood alcohol level of 435. Patient tolerated diet and was stable from respiratory standpoint post extubation. He met with care management who has arranged for him to follow up with his group therapy tomorrow as well as individual counseling following the group therapy tomorrow both through [facility]. Status at Discharge Functional status at discharge: independent ambulation Time Spent with Patient Greater than 30 minutes Exam Vital Signs (past 8 hours): Fraction of Inspired Oxygen 40 Oxygen Delivery Method Room Air Oxygen Flow Rate 5 Objective Labs Result Diagrams: 03/24/18 18:10 03/25/18 04:40 Labs: Laboratory Results - last 24 hr 03/24/18 03/24/18 03/24/18 18:05 18:10 18:10 WBC 9.1 RBC 4.71 Hgb 15.2 Hct 45.4 MCV 96.4 MCH 32.3 MCHC 33.5 RDW 14.1 Plt Count 181 Neut % (Auto) 47.2 L Lymph % (Auto) 44.6 H [place] % (Auto) 6.6 Eos % (Auto) 0.9 L Baso % (Auto) 0.7 Neut # (Auto) 4300 ABG pH 7.25 L* ABG pCO2 51.6 H ABG pO2 157 H ABG HCO3 23 ABG Total CO2 24 ABG O2 Saturation 99 ABG Base Excess -4.0 L FiO2 100 Sodium 151 H Potassium 4.4 Chloride 108 H Carbon Dioxide 24 BUN 13 Creatinine 0.60 L Estimated GFR > 60.0 BUN/Creatinine Ratio 21.7 Glucose 91 Calcium 7.9 L Magnesium 1.8 Total Bilirubin 0.2 Conjugated Bilirubin 0.0 Unconjugated Bilirubin 0.0 AST 79 H ALT 49 Alkaline Phosphatase 49 Total Protein 7.4 Albumin 4.3 Globulin 3.1 Albumin/Globulin Ratio 1.4 Lipase 134 Urine Color Urine Appearance Urine pH Ur Specific [place] Urine Protein Urine Glucose (UA) Urine Ketones Urine Occult Blood Urine Nitrate Urine Bilirubin Urine Urobilinogen Ur Leukocyte Esterase Urine RBC Urine WBC Ur Squamous Epith Cells Amorphous Sediment Urine Bacteria Ur Culture Indicated? Micro UA Comment Nasal Screen MRSA (PCR) Urine Opiates Screen Ur Oxycodone Screen Urine Methadone Screen Ur Barbiturates Screen U Tricyclic Antidepress Ur Phencyclidine Scrn Ur Amphetamines Screen U Methamphetamines Scrn Ur MDMA Scrn (Ecstasy) U Benzodiazepines Scrn Urine Cocaine Screen U Marijuana (THC) Screen Ethyl Alcohol 435 H* 03/24/18 03/24/18 03/24/18 18:10 18:13 20:30 WBC RBC Hgb Hct MCV MCH MCHC RDW Plt Count Neut % (Auto) Lymph % (Auto) [place] % (Auto) Eos % (Auto) Baso % (Auto) Neut # (Auto) ABG pH ABG pCO2 ABG pO2 ABG HCO3 ABG Total CO2 ABG O2 Saturation ABG Base Excess FiO2 Sodium Potassium Chloride Carbon Dioxide BUN Creatinine Estimated GFR BUN/Creatinine Ratio Glucose Calcium Magnesium Total Bilirubin Conjugated Bilirubin Unconjugated Bilirubin AST ALT Alkaline Phosphatase Total Protein Albumin Globulin Albumin/Globulin Ratio Lipase Urine Color Yellow Urine Appearance Clear Urine pH 5.0 Ur Specific [place] 1.025 Urine Protein Negative Urine Glucose (UA) Negative Urine Ketones Negative Urine Occult Blood Negative Urine Nitrate Negative Urine Bilirubin Negative Urine Urobilinogen 0.2 Ur Leukocyte Esterase Negative Urine RBC None seen Urine WBC 0-1/hpf Ur Squamous Epith Cells 0-1 /hpf Amorphous Sediment 1+ Urine Bacteria None seen Ur Culture Indicated? Cult not indicated Micro UA Comment Not Reportable Nasal Screen MRSA (PCR) Negative for mrsa Urine Opiates Screen Negative Ur Oxycodone Screen Negative Urine Methadone Screen Negative Ur Barbiturates Screen Negative U Tricyclic Antidepress Negative Ur Phencyclidine Scrn Negative Ur Amphetamines Screen Negative U Methamphetamines Scrn Negative Ur MDMA Scrn (Ecstasy) Negative U Benzodiazepines Scrn Negative Urine Cocaine Screen Negative U Marijuana (THC) Screen Positive H Ethyl Alcohol 03/25/18 04:40 WBC RBC Hgb Hct MCV MCH MCHC RDW Plt Count Neut % (Auto) Lymph % (Auto) [place] % (Auto) Eos % (Auto) Baso % (Auto) Neut # (Auto) ABG pH ABG pCO2 ABG pO2 ABG HCO3 ABG Total CO2 ABG O2 Saturation ABG Base Excess FiO2 Sodium 147 H Potassium 3.6 Chloride 112 H Carbon Dioxide 22 BUN 12 Creatinine 0.60 L Estimated GFR > 60.0 BUN/Creatinine Ratio 20.0 Glucose 81 Calcium 7.8 L Magnesium Total Bilirubin Conjugated Bilirubin Unconjugated Bilirubin AST ALT Alkaline Phosphatase Total Protein Albumin Globulin Albumin/Globulin Ratio Lipase Urine Color Urine Appearance Urine pH Ur Specific [place] Urine Protein Urine Glucose (UA) Urine Ketones Urine Occult Blood Urine Nitrate Urine Bilirubin Urine Urobilinogen Ur Leukocyte Esterase Urine RBC Urine WBC Ur Squamous Epith Cells Amorphous Sediment Urine Bacteria Ur Culture Indicated? Micro UA Comment Nasal Screen MRSA (PCR) Urine Opiates Screen Ur Oxycodone Screen Urine Methadone Screen Ur Barbiturates Screen U Tricyclic Antidepress Ur Phencyclidine Scrn Ur Amphetamines Screen U Methamphetamines Scrn Ur MDMA Scrn (Ecstasy) U Benzodiazepines Scrn Urine Cocaine Screen U Marijuana (THC) Screen Ethyl Alcohol 182 Discharge Plan Discharge Plan Patient Disposition: Home Discharge Med Rec/Prescriptions Prescriptions: No Action Unobtainable RF: 0 Follow up/Referrals: Luigi Bains MD [Primary Care Provider] - Provider Discharge Instructions Diet: Regular Visit Report/Discharge Packet Instructions: DI for Alcohol Poisoning Visit Report Forms: Stroke Signs & Symptoms Discharge Data Primary Care Provider: Luigi Bains Attending Provider: Elyssa Pelayo Admit Date/Time: 03/24/18 19:27 Discharges patient from system. Discharge Date/Time: 03/25/18 12:32 Quality VTE Deep Vein Thrombosis/Pulmonary Embolism Present on Admission: No
== END 2018-03-25 12:32 | disposition home or self-care (01) | DRG 816 ==
LOC: ED 19:02 → ICU 19:28
PROVIDERS: Emergency Medicine; Admitting Provider Internal Medicine; Emergency Provider Emergency Medicine; Family Provider Family Medicine; PCP Family Medicine; Visit Provider Internal Medicine
DX: T51.0X1A Toxic effect of ethanol, accidental (unintentional), initial encounter (principal); F10.229 Alcohol dependence with intoxication, unspecified; Y90.8 Blood alcohol level of 240 mg/100 ml or more; F32.9 Major depressive disorder, single episode, unspecified; E87.0 Hyperosmolality and hypernatremia; E86.0 Dehydration
CPT/HCPCS: 36415; 36600; 71045; 80048; 80053; 80076; 80305; 80320; 81001; 82805; 83690; 83735; 85025; 87797; 94002; 94003; 94010; 94770; 94799; 96361; 96374; 99285; 99291; 99292; J2704; J3010

== ENCOUNTER 2018-03-27 15:22 | Emergency (ER) | payer OTHER, MEDICAID, SELFPAY ==
[2018-03-24 20:38] VITALS: BMI 22.6
[2018-03-25 08:05] VITALS: PULSE 103; RESP 23; O2SAT 100
[2018-03-27 15:27] VITALS: BP 124/77; PULSE 84; RESP 15; TEMP 36.3; O2SAT 99
--- NOTE | 2018-03-27 15:41 | DI.CT.S_ITS ---
PROCEDURE: CT HEAD/BRAIN WO CON INDICATIONS: fall, head injury TECHNIQUE: Noncontrast 4.5 mm thick angled axial sections acquired from the foramen magnum to the vertex, with coronal and sagittal reformats. For radiation dose reduction, the following was used: automated exposure control, adjustment of mA and/or kV according to patient size. COMPARISON: [facility], CT, HEAD WITHOUT CONTRAST, 05/07/2017, 13:15. [facility], CT, HEAD WITHOUT CONTRAST, 05/30/2017, 16:33. [facility], CT, CT HEAD/BRAIN WO CON, 03/03/2018, 22:54. FINDINGS: Image quality: Excellent. CSF spaces: Basal cisterns are patent. No extra-axial fluid collections. Ventricles are normal in size and shape. Brain: No intracranial hemorrhage, mass, or mass effect. Dey-white matter interface is preserved. Skull and face: Calvarium and visualized facial bones demonstrate no acute fractures. There is a slightly concave appearance of the right parietal bone which appears unchanged compared to the prior studies. Sinuses: Visualized sinuses and mastoids are clear. IMPRESSION: 1. No acute intracranial abnormality. Dictated by: Silvio Jones M.D. on 03/27/2018 at 15:59 Approved by: Silvio Jones M.D. on 03/27/2018 at 16:02
--- NOTE | 2018-03-27 15:50 | PC.NURSE ---
[place] [employer] at bedside serving patient papers for shop lifting
--- NOTE | 2018-03-27 16:01 | ED.FALL ---
HPI - Fall General Chief Complaint: Fall Stated Complaint: GLF Time Seen by Provider: 03/27/18 15:23 Source: patient and EMS Mode of arrival: EMS Limitations: no limitations History of Present Illness HPI Narrative: 28-year-old male known well to myself and other staff. He presents by EMS for evaluation after a ground level fall while intoxicated. Patient had a 5th of vodka a which was almost full and tripped and fell, striking his face on the ground. He admits to a possible loss of consciousness and has obvious abrasions to his forehead. He denies any chest pain or shortness of breath. He denies nausea, vomiting or diarrhea. He is frequently so intoxicated that he requires endotracheal intubation and has on multiple occasions been sent for involuntary detox. He was most recently seen here a few days ago with intoxication requiring intubation. MD complaint: fall Onset (ago): minute(s) Fall from: standing Fall witnessed: yes, by bystander Place fall occurred: other Loss of consciousness: yes Length of LOC: second(s) Prolonged down time: no Context: alcohol use Location of injury: face Related Data Home Medications Medication Instructions Recorded Confirmed Unobtainable 03/19/18 03/27/18 Allergies Allergy/AdvReac Type Severity Reaction Status Date / Time shrimp [SHRIMP] Allergy Severe THROAT Verified 03/27/18 15:27 SWELLING/HIVES diazepam [From VALIUM] Allergy Intermediate LEG Verified 03/27/18 15:27 SWELLING haloperidol [From HALDOL] Allergy Unknown DYSTONIA Verified 03/27/18 15:27 naproxen [NAPROXEN] AdvReac Mild NAUSEA/GI Verified 03/27/18 15:27 DISTRESS Review of Systems Review of Systems All systems reviewed & are unremarkable except as noted in HPI and below Constitutional Denies chills, Denies fever(s), Denies lethargy and Denies weakness Eyes Denies change in vision, Denies eye discharge, Denies irritation and Denies loss of vision ENT Ears, Nose, Mouth, and Throat: Denies change in voice, Denies neck pain and Denies sore throat Cardiovascular Denies chest pain, Denies irregular heart rhythm, Denies lightheadedness, Denies palpitations, Denies dyspnea, Denies dyspnea on exertion and Denies orthopnea Respiratory Denies cough, Denies dyspnea, Denies dyspnea on exertion and Denies wheezing Gastrointestinal Gastrointestinal: Denies abdominal pain, Denies change in bowel habits, Denies diarrhea, Denies nausea and Denies vomiting Genitourinary Denies hematuria, Denies flank pain, Denies urinary incontinence and Denies urinary urgency Musculoskeletal Denies neck pain Integumentary/Breasts Denies pruritus, Denies erythema, Denies rash and Denies wounds Neurologic Denies confusion, Denies loss of vision and Denies weakness Psychiatric Denies anxiety, Denies confusion, Denies depression, Denies homicidal ideation and Denies suicidal ideation Endocrine Denies palpitations Hematologic/Lymphatic Denies easy bruising Allergic/Immunologic Denies wheezing Exam Narrative Exam Narrative: GENERAL: 28-year-old with facial abrasions and some slurring of words HEAD: Abrasions to forehead and bridge of nose. There is a very superficial laceration above the right brow which requires Dermabond for repair EYES: Pupils equal round and reactive. Extraocular motions intact. No scleral icterus. No injection or drainage. ENT: Nose without bleeding, purulent drainage or septal hematoma. Throat without erythema, tonsillar hypertrophy or exudate. Uvula midline. Airway patent. NECK: Trachea midline. No JVD or lymphadenopathy. Supple, nontender, no meningeal signs. CARDIOVASCULAR: Regular rate and rhythm without murmurs, gallops, or rubs. RESPIRATORY: Clear to auscultation. Breath sounds equal bilaterally. No wheezes, rales, or rhonchi. GASTROINTESTINAL: Abdomen soft, non-tender, nondistended. No hepato-splenomegaly, or palpable masses. No guarding. EXTREMITIES: No clubbing, cyanosis, or edema. No joint tenderness, effusion, or edema noted. BACK: Nontender without deformity or crepitance. No flank tenderness. NEURO: AOx3. GCS 14 SKIN: No rash or erythema. Initial Vital Signs Initial Vital Signs: Vital Signs Temperature 97.4 F L 03/27/18 15:27 Pulse Rate 84 03/27/18 15:27 Respiratory Rate 15 03/27/18 15:27 Blood Pressure 124/77 03/27/18 15:27 Pulse Oximetry 99 03/27/18 15:27 [facility] Medical History Alcoholism (Acute) Depression (Acute) Eating disorder (Acute) Epilepsy (Acute) Low back pain (Acute) Family History Grandfather Type 2 diabetes mellitus without complication, unspecified termite control representative insulin use status Grandmother Type 2 diabetes mellitus without complication, unspecified termite control representative insulin use status Mother Uncomplicated asthma, unspecified asthma severity Sister Uncomplicated asthma, unspecified asthma severity Unknown No problems noted. Social History household members: spouse and family Smoking Status: Unknown if ever smoked alcohol intake: current Course Orders Ordered: ED Orders 03/27/18 14:06 Complete Blood Count AUTO DIFF Stat Comprehensive Metabolic Panel Stat Ethanol (ETOH) Stat Hepatic (Liver) Panel Stat Lipase Stat Magnesium Stat 03/27/18 15:41 CT head/brain wo con Stat Reevaluation(s) Reevaluation #1: Patient continues to improve over the course of his visit and demonstrates full capacity to make his own decisions. He is awake alert and oriented. He is speaking clearly without slurring his words and able to walk a straight line. He insists upon leaving. We made multiple times to reach both the patient's mother and neither which are available to pick him up. Again patient has capacity to make his own decisions and demands to leave Vital Signs - 8 hr 03/27/18 15:27 03/27/18 16:05 03/27/18 18:12 Temperature 97.4 F L Pulse Rate 84 84 92 H Respiratory Rate 15 20 12 Blood Pressure 124/77 Blood Pressure [Right Arm] 126/83 124/86 Pulse Oximetry 99 99 98 MDM - Fall Medical Records Attestation: I reviewed the patient's medical records. Lab Data Attestation: I reviewed the patient's lab results. Result diagrams: 03/27/18 14:06 03/27/18 14:06 Lab Results 03/27/18 03/27/18 Range/Units 14:06 14:06 WBC 4.9 (4.5-11.0) X10^3/uL RBC 4.19 L (4.5-5.9) X10^6/uL Hgb 13.6 (13.5-17.5) g/dL Hct 40.1 L (41-53) % MCV 95.6 (80-100) fL MCH 32.4 (26-34) PG MCHC 33.9 (30-36) % RDW 14.1 (11.6-14.8) % Plt Count 130 L (150-400) X10^3/uL Neut % (Auto) 57.5 (50-75) % Lymph % (Auto) 33.8 (25-40) % [place] % (Auto) 6.8 (3-14) % Eos % (Auto) 1.4 L (2-4) % Baso % (Auto) 0.5 (0-2) % Neut # (Auto) 2800 L (7851-6840) /uL Sodium 152 H (137-145) mmol/L Potassium 3.9 (3.4-5.1) mmol/L Chloride 112 H (98-107) mmol/L Carbon Dioxide 27 (22-32) mmol/L BUN 9 (9-20) mg/dL Creatinine 0.60 L (0.66-1.25) mg/dL Estimated GFR > 60.0 (>60) mL/min BUN/Creatinine Ratio 15.0 (6-22) Glucose 88 (70-100) mg/dL Calcium 8.4 (8.4-10.2) mg/dL Magnesium 1.8 (1.6-2.3) mg/dL Total Bilirubin 0.4 (0.2-1.3) mg/dL Conjugated Bilirubin 0.0 (0.0-0.3) md/dL Unconjugated Bilirubin 0.1 (0.0-1.1) mg/dL AST 28 (17-59) IU/L ALT 40 (21-72) IU/L Alkaline Phosphatase 49 (38-126) U/L Total Protein 7.2 (6.3-8.2) g/dL Albumin 4.1 (3.5-5.0) g/dL Globulin 3.1 (1.7-4.1) g/dL Albumin/Globulin Ratio 1.3 (1.0-2.8) Lipase 99 (23-300) U/L Ethyl Alcohol 231 mg/dL Point of Care Testing Glucose POC [address] scan - head: Radiologist's impression: [address] [address] [address] Scan Report Signed Patient: Abhinav Herr WMR#: [id number] : 1990Acct:[id number] Age/Sex: 28 / MDate of Service: 03/27/18 Loc: ED Accession Number: [id number] Procedure: CT head/brain wo con Ordering Provider: Edward Rg D.O. PROCEDURE: CT HEAD/BRAIN WO CON INDICATIONS: fall, head injury TECHNIQUE: Noncontrast 4.5 mm thick angled axial sections acquired from the foramen magnum to the vertex, with coronal and sagittal reformats. For radiation dose reduction, the following was used: automated exposure control, adjustment of mA and/or kV according to patient size. COMPARISON: , CT, HEAD WITHOUT CONTRAST, 05/07/2017, 13:15. , CT, HEAD WITHOUT CONTRAST, 05/30/2017, 16:33. , CT, CT HEAD/BRAIN WO CON, 03/03/2018, 22:54. FINDINGS: Image quality: Excellent. CSF spaces: Basal cisterns are patent. No extra-axial fluid collections. Ventricles are normal in size and shape. Brain: No intracranial hemorrhage, mass, or mass effect. Dey-white matter interface is preserved. Skull and face: Calvarium and visualized facial bones demonstrate no acute fractures. There is a slightly concave appearance of the right parietal bone which appears unchanged compared to the prior studies. Sinuses: Visualized sinuses and mastoids are clear. IMPRESSION: 1. No acute intracranial abnormality. Dictated by: Silvio Jones M.D. on 03/27/2018 at 15:59 Approved by: Silvio Jones M.D. on 03/27/2018 at 16:02 [facility] Narrative Medical decision making narrative: 28-year-old well known to myself and others for frequent alcohol abuse presents as awake and alert as any of us have seen him. CT was head is unremarkable for intracranial hemorrhage. ETOH is in the 200s and patient is awake and alert, initially GCS 14 for some slurring of words which improved over the course of his visit to a GCS of 15. Patient has full capacity to make his own decision and demands discharge. Discharge Plan Departure Patient Disposition: Home Clinical Impression: Forehead laceration, Alcohol intoxication Discharge Date/Time: 03/27/18 18:12 Interventions: ED Discharge Assessment Last Done: 03/27/18 18:11 Instructions: Alcohol Use Disorder Activity Restrictions/Additional Instructions: *You have been diagnosed with [alcoholism, forehead laceration ] *What to do: *Continue to take medications as directed *Follow up with your primary care provider in 2-3 days, call for an appointment. Let them know you were seen in the Emergency Department and that we ask that you be seen in follow up *Return to ER if you should have any new, worsening or concerning symptoms Prescriptions: No Action Unobtainable RF: 0 Referrals: [facility] [Outside] Alcohol [facility] [Outside] Luigi Bains MD [Primary Care Provider] -
--- NOTE | 2018-03-27 16:03 | PC.NURSE ---
Prior to patient going to CT C-spine checked. Patient denies any neck or back pain. No tenderness upon palpation of neck. Able to put chin to chest no pain noted.
[2018-03-27 16:05] VITALS: BP 126/83; PULSE 84; RESP 20; O2SAT 99
[2018-03-27 16:13] LABS: Add Manual Diff / Slide Review NO; Basophils Percent Auto 0.5 % (0-2); Eosinophils Percent Auto 1.4 % (2-4); Hematocrit 40.1 % (41-53); Hemoglobin 13.6 g/dL (13.5-17.5); Lymphocytes Percent Auto 33.8 % (25-40); Mean Corpuscular HGB Conc 33.9 % (30-36); Mean Corpuscular Hemoglobin 32.4 PG (26-34); Mean Corpuscular Volume 95.6 fL (80-100); Monocytes Percent Auto 6.8 % (3-14); Neutrophils Absolute Auto 2800 /uL (3000-5900); Neutrophils Percent Auto 57.5 % (50-75); Platelet Count 130 X10^3/uL (150-400); Red Blood Cell Count 4.19 X10^6/uL (4.5-5.9); Red Cell Distribution Width 14.1 % (11.6-14.8); White Blood Cell Count 4.9 X10^3/uL (4.5-11.0)
[2018-03-27 16:27] LABS: Alanine Aminotransferase 40 IU/L (21-72); Albumin 4.1 g/dL (3.5-5.0); Albumin Globulin Ratio 1.3 (1.0-2.8); Alkaline Phosphatase 49 U/L (38-126); Aspartate Aminotransferase 28 IU/L (17-59); Bilirubin Total 0.4 mg/dL (0.2-1.3); Bilirubin Unconjugated 0.1 mg/dL (0.0-1.1); Blood Urea Nitrogen 9 mg/dL (9-20); Calcium 8.4 mg/dL (8.4-10.2); Carbon Dioxide 27 mmol/L (22-32); Chloride 112 mmol/L (98-107); Estimated Glomerular Filt Rate > 60.0 mL/min (>60); Ethanol (ETOH) 231 mg/dL; Globulin 3.1 g/dL (1.7-4.1); Glucose 88 mg/dL (70-100); HEMOLYSIS < 15 (0-50); Lipase 99 U/L (23-300); Magnesium 1.8 mg/dL (1.6-2.3); Potassium 3.9 mmol/L (3.4-5.1); Sodium 152 mmol/L (137-145); Total Protein 7.2 g/dL (6.3-8.2)
--- NOTE | 2018-03-27 16:55 | PC.NURSE ---
Patient up at doorway wanting to leave, Provider speaking to patient about guidelines for discharge. Patient unable to walk a straight line, unsteady on feet. Patient able to be discharged if can come get him. called and is on the way. Patient keeps attempting to leave the department. Verbal redirection by RN and MD.
--- NOTE | 2018-03-27 17:20 | PC.NURSE ---
Provided juice and snack to patient as he waits for his ride. called twice to check ETA as patient is restless and continues to try and leave. No answer at this time
[2018-03-27 18:12] VITALS: BP 124/86; PULSE 92; RESP 12; O2SAT 98
--- NOTE | 2018-03-27 18:13 | PC.NURSE ---
able to walk independently steady on feet.
--- NOTE | 2018-03-27 20:21 | ED_ITS ---
HPI - Fall General Chief Complaint: Fall Stated Complaint: GLF Time Seen by Provider: 03/27/18 15:23 Source: patient and EMS Mode of arrival: EMS Limitations: no limitations History of Present Illness HPI Narrative: 28-year-old male known well to myself and other staff. He presents by EMS for evaluation after a ground level fall while intoxicated. Patient had a 5th of vodka a which was almost full and tripped and fell, striking his face on the ground. He admits to a possible loss of consciousness and has obvious abrasions to his forehead. He denies any chest pain or shortness of breath. He denies nausea, vomiting or diarrhea. He is frequently so intoxicated that he requires endotracheal intubation and has on multiple occasions been sent for involuntary detox. He was most recently seen here a few days ago with intoxication requiring intubation. MD complaint: fall Onset (ago): minute(s) Fall from: standing Fall witnessed: yes, by bystander Place fall occurred: other Loss of consciousness: yes Length of LOC: second(s) Prolonged down time: no Context: alcohol use Location of injury: face Related Data Home Medications Medication Instructions Recorded Confirmed Unobtainable 03/19/18 03/27/18 Allergies Allergy/AdvReac Type Severity Reaction Status Date / Time shrimp [SHRIMP] Allergy Severe THROAT Verified 03/27/18 15:27 SWELLING/HIVES diazepam [From VALIUM] Allergy Intermediate LEG Verified 03/27/18 15:27 SWELLING haloperidol [From HALDOL] Allergy Unknown DYSTONIA Verified 03/27/18 15:27 naproxen [NAPROXEN] AdvReac Mild NAUSEA/GI Verified 03/27/18 15:27 DISTRESS Review of Systems Review of Systems All systems reviewed & are unremarkable except as noted in HPI and below Constitutional Denies chills, Denies fever(s), Denies lethargy and Denies weakness Eyes Denies change in vision, Denies eye discharge, Denies irritation and Denies loss of vision ENT Ears, Nose, Mouth, and Throat: Denies change in voice, Denies neck pain and Denies sore throat Cardiovascular Denies chest pain, Denies irregular heart rhythm, Denies lightheadedness, Denies palpitations, Denies dyspnea, Denies dyspnea on exertion and Denies orthopnea Respiratory Denies cough, Denies dyspnea, Denies dyspnea on exertion and Denies wheezing Gastrointestinal Gastrointestinal: Denies abdominal pain, Denies change in bowel habits, Denies diarrhea, Denies nausea and Denies vomiting Genitourinary Denies hematuria, Denies flank pain, Denies urinary incontinence and Denies urinary urgency Musculoskeletal Denies neck pain Integumentary/Breasts Denies pruritus, Denies erythema, Denies rash and Denies wounds Neurologic Denies confusion, Denies loss of vision and Denies weakness Psychiatric Denies anxiety, Denies confusion, Denies depression, Denies homicidal ideation and Denies suicidal ideation Endocrine Denies palpitations Hematologic/Lymphatic Denies easy bruising Allergic/Immunologic Denies wheezing Exam Narrative Exam Narrative: GENERAL: 28-year-old with facial abrasions and some slurring of words HEAD: Abrasions to forehead and bridge of nose. There is a very superficial laceration above the right brow which requires Dermabond for repair EYES: Pupils equal round and reactive. Extraocular motions intact. No scleral icterus. No injection or drainage. ENT: Nose without bleeding, purulent drainage or septal hematoma. Throat without erythema, tonsillar hypertrophy or exudate. Uvula midline. Airway patent. NECK: Trachea midline. No JVD or lymphadenopathy. Supple, nontender, no meningeal signs. CARDIOVASCULAR: Regular rate and rhythm without murmurs, gallops, or rubs. RESPIRATORY: Clear to auscultation. Breath sounds equal bilaterally. No wheezes , rales, or rhonchi. GASTROINTESTINAL: Abdomen soft, non-tender, nondistended. No hepato-splenomegaly , or palpable masses. No guarding. EXTREMITIES: No clubbing, cyanosis, or edema. No joint tenderness, effusion, or edema noted. BACK: Nontender without deformity or crepitance. No flank tenderness. NEURO: AOx3. GCS 14 SKIN: No rash or erythema. 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 Social History household members: spouse and family Smoking Status: Unknown if ever smoked alcohol intake: current Course Orders Ordered: ED Orders 03/27/18 14:06 Complete Blood Count AUTO DIFF Stat Comprehensive Metabolic Panel Stat Ethanol (ETOH) Stat Hepatic (Liver) Panel Stat Lipase Stat Magnesium Stat 03/27/18 15:41 CT head/brain wo con Stat Reevaluation(s) Reevaluation #1: Patient continues to improve over the course of his visit and demonstrates full capacity to make his own decisions. He is awake alert and oriented. He is speaking clearly without slurring his words and able to walk a straight line. He insists upon leaving. We made multiple times to reach both the patient's mother and neither which are available to pick him up. Again patient has capacity to make his own decisions and demands to leave Vital Signs - 8 hr 03/27/18 15:27 03/27/18 16:05 03/27/18 18:12 Temperature 97.4 F L Pulse Rate 84 84 92 H Respiratory Rate 15 20 12 Blood Pressure 124/77 Blood Pressure [Right Arm] 126/83 124/86 Pulse Oximetry 99 99 98 MDM - Fall Medical Records Attestation: I reviewed the patient's medical records. Lab Data Attestation: I reviewed the patient's lab results. Result diagrams: 03/27/18 14:06 03/27/18 14:06 Lab Results 03/27/18 03/27/18 Range/Units 14:06 14:06 WBC 4.9 (4.5-11.0) X10^3/uL RBC 4.19 L (4.5-5.9) X10^6/uL Hgb 13.6 (13.5-17.5) g/dL Hct 40.1 L (41-53) % MCV 95.6 (80-100) fL MCH 32.4 (26-34) PG MCHC 33.9 (30-36) % RDW 14.1 (11.6-14.8) % Plt Count 130 L (150-400) X10^3/uL Neut % (Auto) 57.5 (50-75) % Lymph % (Auto) 33.8 (25-40) % [place] % (Auto) 6.8 (3-14) % Eos % (Auto) 1.4 L (2-4) % Baso % (Auto) 0.5 (0-2) % Neut # (Auto) 2800 L (8308-9293) /uL Sodium 152 H (137-145) mmol/L Potassium 3.9 (3.4-5.1) mmol/L Chloride 112 H (98-107) mmol/L Carbon Dioxide 27 (22-32) mmol/L BUN 9 (9-20) mg/dL Creatinine 0.60 L (0.66-1.25) mg/dL Estimated GFR > 60.0 (>60) mL/min BUN/Creatinine Ratio 15.0 (6-22) Glucose 88 (70-100) mg/dL Calcium 8.4 (8.4-10.2) mg/dL Magnesium 1.8 (1.6-2.3) mg/dL Total Bilirubin 0.4 (0.2-1.3) mg/dL Conjugated Bilirubin 0.0 (0.0-0.3) md/dL Unconjugated Bilirubin 0.1 (0.0-1.1) mg/dL AST 28 (17-59) IU/L ALT 40 (21-72) IU/L Alkaline Phosphatase 49 (38-126) U/L Total Protein 7.2 (6.3-8.2) g/dL Albumin 4.1 (3.5-5.0) g/dL Globulin 3.1 (1.7-4.1) g/dL Albumin/Globulin Ratio 1.3 (1.0-2.8) Lipase 99 (23-300) U/L Ethyl Alcohol 231 mg/dL Point of Care Testing Glucose POC [address] scan - head: Radiologist's impression: [address] [address] [address] Scan Report Signed Patient: Abhinav Herr WMR#: [id number] : 1990Acct:[id number] Age/Sex: 28 / MDate of Service: 03/27/18 Loc: ED Accession Number: [id number] Procedure: CT head/brain wo con Ordering Provider: Edward Rg D.O. PROCEDURE: CT HEAD/BRAIN WO CON INDICATIONS: fall, head injury TECHNIQUE: Noncontrast 4.5 mm thick angled axial sections acquired from the foramen magnum to the vertex, with coronal and sagittal reformats. For radiation dose reduction, the following was used: automated exposure control, adjustment of mA and/or kV according to patient size. COMPARISON: [facility], CT, HEAD WITHOUT CONTRAST, 05/07/2017, 13:15. [facility], CT, HEAD WITHOUT CONTRAST, 05/30/2017, 16:33. [facility], CT, CT HEAD/BRAIN WO CON, 03/03/2018, 22:54. FINDINGS: Image quality: Excellent. CSF spaces: Basal cisterns are patent. No extra-axial fluid collections. Ventricles are normal in size and shape. Brain: No intracranial hemorrhage, mass, or mass effect. Dey-white matter interface is preserved. Skull and face: Calvarium and visualized facial bones demonstrate no acute fractures. There is a slightly concave appearance of the right parietal bone which appears unchanged compared to the prior studies. Sinuses: Visualized sinuses and mastoids are clear. IMPRESSION: 1. No acute intracranial abnormality. Dictated by: Silvio Jones M.D. on 03/27/2018 at 15:59 Approved by: Silvio Jones M.D. on 03/27/2018 at 16:02 [facility] Narrative Medical decision making narrative: 28-year-old well known to myself and others for frequent alcohol abuse presents as awake and alert as any of us have seen him. CT was head is unremarkable for intracranial hemorrhage. ETOH is in the 200s and patient is awake and alert, initially GCS 14 for some slurring of words which improved over the course of his visit to a GCS of 15. Patient has full capacity to make his own decision and demands discharge. Discharge Plan Departure Patient Disposition: Home Clinical Impression: Forehead laceration, Alcohol intoxication Discharge Date/Time: 03/27/18 18:12 Interventions: ED Discharge Assessment Last Done: 03/27/18 18:11 Instructions: Alcohol Use Disorder Activity Restrictions/Additional Instructions: *You have been diagnosed with [alcoholism, forehead laceration ] *What to do: *Continue to take medications as directed *Follow up with your primary care provider in 2-3 days, call for an appointment. Let them know you were seen in the Emergency Department and that we ask that you be seen in follow up *Return to ER if you should have any new, worsening or concerning symptoms Prescriptions: No Action Unobtainable RF: 0 Referrals: [facility] [Outside] Alcohol [facility] [Outside] Luigi Bains MD [Primary Care Provider] -
== END 2018-03-27 18:12 | disposition home or self-care (01) ==
PROVIDERS: Emergency Provider Emergency Medicine; Family Provider Family Medicine; PCP Family Medicine
DX: S01.81XA Laceration without foreign body of other part of head, initial encounter (principal); F10.929 Alcohol use, unspecified with intoxication, unspecified; W01.0XXA Fall on same level from slipping, tripping and stumbling without subsequent striking against object, initial encounter
CPT/HCPCS: 36415; 70450; 80053; 80076; 80320; 82962; 83690; 83735; 85025; 99283; 99284

== ENCOUNTER 2018-04-02 16:42 | Inpatient (IN) | payer OTHER, MEDICAID, SELFPAY ==
[2018-03-24 20:38] VITALS: BMI 22.6
[2018-03-25 08:05] VITALS: PULSE 103; RESP 23; O2SAT 100
[2018-04-02] VITALS (16 sets, daily range): BP systolic 93–135; BP diastolic 34–94; PULSE 67–100; RESP 14–21; TEMP 36.7–38.2; O2SAT 96–100; BMI 23.2
--- NOTE | 2018-04-02 16:44 | DI.RAD.S_ITS ---
PROCEDURE: XR CHEST 1V INDICATIONS: INTUBATION TECHNIQUE: One view of the chest was acquired. COMPARISON: [facility], CR, XR CHEST 1V, 03/24/2018, 18:07. FINDINGS: Surgical changes and devices: The patient is intubated and the endotracheal tube is 5.9 cm above the matthew. Lungs and pleura: There is collapse of the right upper lobe. Subtle air space opacities are present within the left lower lobe in the retrocardiac space. Mediastinum: Mediastinal contours appear normal. Heart size is normal. Bones and chest wall: No suspicious bony lesions. Overlying soft tissues appear unremarkable. IMPRESSION: 1. Endotracheal tube approximately 6 cm above the matthew. 2. Collapse of the right upper lobe. 3. Questionable airspace opacities within the left lower lobe. Dictated by: Zonia Porter M.D. on 04/02/2018 at 17:04 Approved by: Zonia Porter M.D. on 04/02/2018 at 17:06
[2018-04-02 16:53] LABS: Add Manual Diff / Slide Review NO; Basophils Percent Auto 0.7 % (0-2); Eosinophils Percent Auto 0.5 % (2-4); Hematocrit 43.8 % (41-53); Hemoglobin 14.9 g/dL (13.5-17.5); Lymphocytes Percent Auto 50.8 % (25-40); Mean Corpuscular HGB Conc 34.1 % (30-36); Mean Corpuscular Hemoglobin 32.4 PG (26-34); Mean Corpuscular Volume 94.9 fL (80-100); Monocytes Percent Auto 5.9 % (3-14); Neutrophils Absolute Auto 3000 /uL (3000-5900); Neutrophils Percent Auto 42.1 % (50-75); Platelet Count 177 X10^3/uL (150-400); Red Blood Cell Count 4.61 X10^6/uL (4.5-5.9); Red Cell Distribution Width 13.9 % (11.6-14.8); White Blood Cell Count 7.2 X10^3/uL (4.5-11.0)
--- NOTE | 2018-04-02 17:05 | ED.OVERDOSE ---
HPI - Overdose General Chief Complaint: Unresponsive Stated Complaint: unresponsive Time Seen by Provider: 04/02/18 16:44 Source: EMS Limitations: physical limitation History of Present Illness HPI Narrative: PATIENT IS A 28-YEAR-OLD MALE WELL KNOWN TO THIS FACILITY AND MYSELF PRESENTING WITH ALL ALCOHOL INTOXICATION. He has been intubated numerous times in intubated by EMS. EMS actually reports his airway is becoming more narrow and more difficult to intubate. Today he was found in his bed by his unresponsive. He was admitted March 24 and discharged March 25. For the same. He has had multiple times where he has been ?Rashad's Law ? worries forced into treatment regardless of whether he wants to go or not. This is also happened numerous times is also not working. Related Data Home Medications Medication Instructions Recorded Confirmed Unobtainable 03/19/18 03/27/18 Unobtainable 04/02/18 04/02/18 Allergies Allergy/AdvReac Type Severity Reaction Status Date / Time shrimp [SHRIMP] Allergy Severe THROAT Verified 03/27/18 15:27 SWELLING/HIVES diazepam [From VALIUM] Allergy Intermediate LEG Verified 03/27/18 15:27 SWELLING haloperidol [From HALDOL] Allergy Unknown DYSTONIA Verified 03/27/18 15:27 naproxen [NAPROXEN] AdvReac Mild NAUSEA/GI Verified 03/27/18 15:27 DISTRESS Review of Systems Review of Systems due to endotracheal tube [facility] Social History household members: spouse and family Smoking Status: Unknown if ever smoked alcohol intake: current Exam Initial Vital Signs Initial Vital Signs: Vital Signs Pulse Rate 84 04/02/18 16:40 Respiratory Rate 18 04/02/18 16:40 Blood Pressure 131/94 H 04/02/18 16:40 Pulse Oximetry 100 04/02/18 16:40 Const General: healthy appearing and patient mechanically ventilated Eyes General: appearance normal, both eyes and all related structures Chest Chest: normal inspection of the chest Resp Effort & Inspection: normal respiratory effort Auscultation: clear to auscultation bilaterally, no rales, no rhonchi and no wheezes Cardio Rate: regular rate Rhythm: regular rhythm Heart Sounds: S1 normal and S2 normal GI Inspection: normal to inspection Palpation: soft, No guarding and No rigid Skin General: no rashes or lesions noted, No jaundice and No petechiae Neuro Comatose Patient: corneal reflex present Course Orders Ordered: ED Orders 04/02/18 16:40 Complete Blood Count AUTO DIFF Stat Comprehensive Metabolic Panel Stat Ethanol (ETOH) Stat Lipase Stat Magnesium Stat 04/02/18 16:44 XR chest 1V Stat 04/02/18 17:07 Arterial Blood Gas Urgent 04/02/18 17:12 Urine Drug Screen, Rapid Stat 04/02/18 18:14 Consult to Dietitian, Adult Routine Endotracheal tube suction As needed 04/02/18 18:15 Arterial Blood Gas Daily Complete Blood Count AUTO DIFF DAILY Comprehensive Metabolic Panel DAILY Sputum Culture DAILY 04/03/18 05:00 Complete Blood Count AUTO DIFF Routine Comprehensive Metabolic Panel Routine Magnesium Routine 04/03/18 06:15 XR chest 1V DAILY XR chest 1V DAILY 04/03/18 18:15 Arterial Blood Gas Daily Complete Blood Count AUTO DIFF DAILY Comprehensive Metabolic Panel DAILY Sputum Culture DAILY 04/04/18 06:15 XR chest 1V DAILY 04/04/18 18:15 Arterial Blood Gas Daily Complete Blood Count AUTO DIFF DAILY Comprehensive Metabolic Panel DAILY Sputum Culture DAILY 04/05/18 06:15 XR chest 1V DAILY 04/05/18 18:15 Arterial Blood Gas Daily Complete Blood Count AUTO DIFF DAILY Comprehensive Metabolic Panel DAILY 04/06/18 06:15 XR chest 1V DAILY 04/06/18 18:15 Arterial Blood Gas Daily Complete Blood Count AUTO DIFF DAILY Comprehensive Metabolic Panel DAILY 04/07/18 06:15 XR chest 1V DAILY 04/07/18 18:15 Arterial Blood Gas Daily Complete Blood Count AUTO DIFF DAILY Comprehensive Metabolic Panel DAILY 04/08/18 06:15 XR chest 1V DAILY 04/08/18 18:15 Arterial Blood Gas Daily Complete Blood Count AUTO DIFF DAILY Comprehensive Metabolic Panel DAILY 04/09/18 06:15 XR chest 1V DAILY 04/09/18 18:15 Arterial Blood Gas Daily Complete Blood Count AUTO DIFF DAILY Comprehensive Metabolic Panel DAILY 04/10/18 06:15 XR chest 1V DAILY 04/10/18 18:15 Arterial Blood Gas Daily Complete Blood Count AUTO DIFF DAILY Comprehensive Metabolic Panel DAILY 04/11/18 06:15 XR chest 1V DAILY 04/11/18 18:15 Arterial Blood Gas Daily Complete Blood Count AUTO DIFF DAILY Comprehensive Metabolic Panel DAILY 04/12/18 06:15 XR chest 1V DAILY 04/12/18 18:15 Arterial Blood Gas Daily Complete Blood Count AUTO DIFF DAILY Comprehensive Metabolic Panel DAILY 04/13/18 06:15 XR chest 1V DAILY 04/13/18 18:15 Arterial Blood Gas Daily Complete Blood Count AUTO DIFF DAILY Comprehensive Metabolic Panel DAILY 04/14/18 06:15 XR chest 1V DAILY 04/14/18 18:15 Arterial Blood Gas Daily Complete Blood Count AUTO DIFF DAILY Comprehensive Metabolic Panel DAILY 04/15/18 06:15 XR chest 1V DAILY 04/15/18 18:15 Arterial Blood Gas Daily Complete Blood Count AUTO DIFF DAILY Comprehensive Metabolic Panel DAILY Hydromorphone HCl (Dilaudid) 0.5 mg IV Q6HR PRN PRN Reason: Agitation Propofol (Propofol) 1,000 mg in 100 mls @ 0 mls/hr IV TITRATE HOLGER; Protocol Last Admin: 04/02/18 17:07 Dose: 2.3 mls/hr Propofol (Propofol) 1,000 mg in 100 mls @ 0 mls/hr IV TITRATE HOLGER; Protocol Dextrose (Dextrose 5% Water) 1,000 mls @ 100 mls/hr IV CONT HOLGER Lorazepam (Ativan) 2 mg IV Q6HR PRN PRN Reason: Restless Pantoprazole Sodium (Protonix) 40 mg IV DAILY HOLGER Discontinued Medications Sodium Chloride (Normal Saline 0.9%) 1,000 mls @ 150 mls/hr IV CONT HOLGER Last Admin: 04/02/18 17:09 Dose: 150 mls/hr Propofol (Diprivan) 100 mg IV NOW ONE Stop: 04/02/18 16:45 Last Admin: 04/02/18 17:09 Dose: 100 mg Vital Signs - 8 hr 04/02/18 16:40 04/02/18 17:10 04/02/18 17:53 Temperature 98.1 F Pulse Rate 84 68 Respiratory Rate 18 15 Blood Pressure 131/94 H 118/74 Pulse Oximetry 100 100 MDM - Overdose Lab Data Attestation: I reviewed the patient's lab results. Result diagrams: 04/02/18 16:40 04/02/18 16:40 Lab Results 04/02/18 04/02/18 04/02/18 Range/Units 16:40 16:40 17:07 WBC 7.2 (4.5-11.0) X10^3/uL RBC 4.61 (4.5-5.9) X10^6/uL Hgb 14.9 (13.5-17.5) g/dL Hct 43.8 (41-53) % MCV 94.9 (80-100) fL MCH 32.4 (26-34) PG MCHC 34.1 (30-36) % RDW 13.9 (11.6-14.8) % Plt Count 177 (150-400) X10^3/uL Neut % (Auto) 42.1 L (50-75) % Lymph % (Auto) 50.8 H (25-40) % [place] % (Auto) 5.9 (3-14) % Eos % (Auto) 0.5 L (2-4) % Baso % (Auto) 0.7 (0-2) % Neut # (Auto) 3000 (8770-7811) /uL ABG pH 7.31 L (7.35-7.45) ABG pCO2 52.0 H (35-45) mmHg ABG pO2 123 H (80-105) mmHg ABG HCO3 26 (23-27) mmol/L ABG Total CO2 27 (23-27) mmol/L ABG O2 Saturation 98 (95-100) % ABG Base Excess 0.0 (-2-3) mmol/L FiO2 40 Sodium 153 H (137-145) mmol/L Potassium 4.5 (3.4-5.1) mmol/L Chloride 111 H (98-107) mmol/L Carbon Dioxide 27 (22-32) mmol/L BUN 11 (9-20) mg/dL Creatinine 0.70 (0.66-1.25) mg/dL Estimated GFR > 60.0 (>60) mL/min BUN/Creatinine Ratio 15.7 (6-22) Glucose 84 (70-100) mg/dL Calcium 8.1 L (8.4-10.2) mg/dL Magnesium 1.8 (1.6-2.3) mg/dL Total Bilirubin 0.2 (0.2-1.3) mg/dL AST 34 (17-59) IU/L ALT 34 (21-72) IU/L Alkaline Phosphatase 51 (38-126) U/L Total Protein 7.5 (6.3-8.2) g/dL Albumin 4.4 (3.5-5.0) g/dL Globulin 3.1 (1.7-4.1) g/dL Albumin/Globulin Ratio 1.4 (1.0-2.8) Lipase 124 (23-300) U/L Urine Opiates Screen (Negative) Ur Oxycodone Screen (Negative) Urine Methadone Screen (Negative) Ur Barbiturates Screen (Negative) U Tricyclic Antidepress (Negative) Ur Phencyclidine Scrn (Negative) Ur Amphetamines Screen (Negative) U Methamphetamines Scrn (Negative) Ur MDMA Scrn (Ecstasy) (Negative) U Benzodiazepines Scrn (Negative) Urine Cocaine Screen (Negative) U Marijuana (THC) Screen (Negative) Ethyl Alcohol 456 H* mg/dL 04/02/ Range/Units 17:12 WBC (4.5-11.0) X10^3/uL RBC (4.5-5.9) X10^6/uL Hgb (13.5-17.5) g/dL Hct (41-53) % MCV (80-100) fL MCH (26-34) PG MCHC (30-36) % RDW (11.6-14.8) % Plt Count (150-400) X10^3/uL Neut % (Auto) (50-75) % Lymph % (Auto) (25-40) % [place] % (Auto) (3-14) % Eos % (Auto) (2-4) % Baso % (Auto) (0-2) % Neut # (Auto) (4918-0578) /uL ABG pH (7.35-7.45) ABG pCO2 (35-45) mmHg ABG pO2 (80-105) mmHg ABG HCO3 (23-27) mmol/L ABG Total CO2 (23-27) mmol/L ABG O2 Saturation (95-100) % ABG Base Excess (-2-3) mmol/L FiO2 Sodium (137-145) mmol/L Potassium (3.4-5.1) mmol/L Chloride (98-107) mmol/L Carbon Dioxide (22-32) mmol/L BUN (9-20) mg/dL Creatinine (0.66-1.25) mg/dL Estimated GFR (>60) mL/min BUN/Creatinine Ratio (6-22) Glucose (70-100) mg/dL Calcium (8.4-10.2) mg/dL Magnesium (1.6-2.3) mg/dL Total Bilirubin (0.2-1.3) mg/dL AST (17-59) IU/L ALT (21-72) IU/L Alkaline Phosphatase (38-126) U/L Total Protein (6.3-8.2) g/dL Albumin (3.5-5.0) g/dL Globulin (1.7-4.1) g/dL Albumin/Globulin Ratio (1.0-2.8) Lipase (23-300) U/L Urine Opiates Screen Negative (Negative) Ur Oxycodone Screen Negative (Negative) Urine Methadone Screen Negative (Negative) Ur Barbiturates Screen Negative (Negative) U Tricyclic Antidepress Negative (Negative) Ur Phencyclidine Scrn Negative (Negative) Ur Amphetamines Screen Negative (Negative) U Methamphetamines Scrn Negative (Negative) Ur MDMA Scrn (Ecstasy) Negative (Negative) U Benzodiazepines Scrn Negative (Negative) Urine Cocaine Screen Negative (Negative) U Marijuana (THC) Screen Positive H (Negative) Ethyl Alcohol mg/dL Urine Dip Bedside Urine Glucose Negative Bedside Urine Bilirubin - Negative Bedside Urine Ketone - Negative Urine Specific [place] 1.010 Bedside Urine Occult Blood - Negative Bedside Urine pH 6.0 Bedside Urine Protein - Negative Bedside Urine Urobilinogen - Negative Bedside Urine Nitrite - Negative Bedside Urine Leukocytes - Negative Esterase Imaging Data Chest x-ray: Radiologist's impression: [address] [address] XRay Report Signed Patient: Abhinav Herr WMR#: [id number] : 1990Acct:[id number] Age/Sex: 28 / MDate of Service: 04/02/18 Loc: ED Accession Number: [id number] Procedure: XR chest 1V Ordering Provider: Katiana Hopkins D.O. PROCEDURE: XR CHEST 1V INDICATIONS: INTUBATION TECHNIQUE: One view of the chest was acquired. [facility], [facility]/24/2018, 18:07. FINDINGS: Surgical changes and devices: The patient is intubated and the endotracheal tube is 5.9 cm above the matthew. Lungs and pleura: There is collapse of the right upper lobe. Subtle air space opacities are present within the left lower lobe in the retrocardiac space. Mediastinum: Mediastinal contours appear normal. Heart size is normal. Bones and chest wall: No suspicious bony lesions. Overlying soft tissues appear unremarkable. IMPRESSION: 1. Endotracheal tube approximately 6 cm above the matthew. 2. Collapse of the right upper lobe. 3. Questionable airspace opacities within the left lower lobe. Dictated by: Zonia Porter M.D. on 04/02/2018 at 17:04 MDM Narrative Medical decision making narrative: I feel that patient needs a stronger full community plan including EMS. I will discuss with patient care director and other ER physicians, I worry that his frequent intubations are causing airway edema And scarring. This could be due to difficult airways in the future. He has a 6-0 or 6-5 in currently. social work and case management quite familiar with patient. Recommend they also be involved in this case. Patient has gone to mandated treatment multiple times in the past however mandated treatment is only about a week or less, And clearly he does not respond to it. Dr. Jones has been updated on patient's symptoms current problems and is happy to accept the patient to the ICU. Discharge Plan Departure Patient Disposition: Admitted As Inpatient Clinical Impression: Alcohol intoxication Discharge Date/Time: 04/02/18 18:18 Interventions: ED Discharge Assessment Last Done: 04/02/18 17:53 Admit Date/Time: 04/02/18 17:43 Admit Provider: Cyndy Jones
[2018-04-02] MEDS: PROPOFOL 1,000 MG/100 ML VIAL 2.3 MG IV (17:07)
[2018-04-02] MEDS: PROPOFOL 200 MG/20 ML VIAL 100 MG IV (17:09)
[2018-04-02] MEDS: SODIUM CHLORIDE 0.9% 1,000 ML 150 ML IV (17:09)
[2018-04-02 17:11] LABS: Fractionated Inspired Oxygen 40; HCO3 ABG 26 mmol/L (23-27); Oxygen Saturation ABG 98 % (95-100); PO2 ABG 123 mmHg (80-105); TCO2 ABG 27 mmol/L (23-27); pH ABG 7.31 (7.35-7.45)
[2018-04-02 17:11] LABS: Alanine Aminotransferase 34 IU/L (21-72); Albumin 4.4 g/dL (3.5-5.0); Albumin Globulin Ratio 1.4 (1.0-2.8); Alkaline Phosphatase 51 U/L (38-126); Aspartate Aminotransferase 34 IU/L (17-59); BUN Creatinine Ratio 15.7 (6-22); Bilirubin Total 0.2 mg/dL (0.2-1.3); Blood Urea Nitrogen 11 mg/dL (9-20); Calcium 8.1 mg/dL (8.4-10.2); Carbon Dioxide 27 mmol/L (22-32); Chloride 111 mmol/L (98-107); Estimated Glomerular Filt Rate > 60.0 mL/min (>60); Globulin 3.1 g/dL (1.7-4.1); Glucose 84 mg/dL (70-100); HEMOLYSIS < 15 (0-50); Lipase 124 U/L (23-300); Magnesium 1.8 mg/dL (1.6-2.3); Potassium 4.5 mmol/L (3.4-5.1); Sodium 153 mmol/L (137-145); Total Protein 7.5 g/dL (6.3-8.2)
[2018-04-02 17:22] LABS: Ethanol (ETOH) 456 mg/dL
[2018-04-02 17:30] LABS: Urine Amphetamines Negative (Negative); Urine Barbiturates Negative (Negative); Urine Benzodiazepines Negative (Negative); Urine Cocaine Negative (Negative); Urine MDMA Negative (Negative); Urine Methadone Negative (Negative); Urine Methamphetamines Negative (Negative); Urine Morphine/Opi cutoff 2000 Negative (Negative); Urine Oxycodone Negative (Negative); Urine Phencyclidine Negative (Negative); Urine Tetrahydrocannabinol Positive (Negative); Urine Tricyclic Antidepressant Negative (Negative)
--- NOTE | 2018-04-02 17:30 | PC.NURSE ---
Pt is intubated for airway protection in field. Will be admitted to ICU. 1:1 care since arrival. Isabel placed. OG placed. Utox sent. Awaiting admission
--- NOTE | 2018-04-02 18:20 | P.HP_ITS ---
History of Present Illness Date Patient Seen: 04/02/18 Chief complaint: unresponsive Narrative: The patient is a 28-year-old male well known to the hospitalist team who was discharged from the hospital on March 27. Patient has a history of alcohol abuse. He was found by his today to be unresponsive. Medics were called and the patient was intubated in the field and brought into the emergency room for further evaluation. Patient is intubated sedated and unresponsive. Per report from Dr. Hopkins the patient has had multiple hospitalizations. He has had multiple intubations as well. The patient has been retained under Rashad's Law. He has been in treatment multiple times to no avail. Patient is admitted to this hospital at this time with acute respiratory failure secondary to alcohol abuse. His blood alcohol level was over 400 in the emergency department. Patient History Medical History Alcoholism (Acute) Depression (Acute) Eating disorder (Acute) Epilepsy (Acute) Low back pain (Acute) Family & Social History Social History: household members spouse,family Tobacco & Substance use: Smoking Status Unknown if ever smoked alcohol intake current alcohol intake frequency 3 or more drinks per day Substance Use Type marijuana Meds Home Medications Medication Instructions Recorded Confirmed Type Unobtainable 03/19/18 03/27/18 History Unobtainable 04/02/18 04/02/18 History Allergies Allergy/AdvReac Type Severity Reaction Status Date / Time shrimp [SHRIMP] Allergy Severe THROAT Verified 03/27/18 15:27 SWELLING/HIVES diazepam [From VALIUM] Allergy Intermediate LEG Verified 03/27/18 15:27 SWELLING haloperidol [From HALDOL] Allergy Unknown DYSTONIA Verified 03/27/18 15:27 naproxen [NAPROXEN] AdvReac Mild NAUSEA/GI Verified 03/27/18 15:27 DISTRESS Review of Systems Review of Systems unobtainable due to mental status Exam Vital Signs (past 8 hours): - 04/02/18 16:40 04/02/18 17:10 04/02/18 17:53 Temperature 98.1 F Pulse Rate 84 68 Respiratory Rate 18 15 Blood Pressure 131/94 H 118/74 Pulse Oximetry 100 100 Oxygen Delivery Method Mechanical Ventilation Objective Labs Result Diagrams: 04/02/18 16:40 04/02/18 16:40 Labs: Laboratory Results - last 24 hr 04/02/18 04/02/18 04/02/18 16:40 16:40 17:07 WBC 7.2 RBC 4.61 Hgb 14.9 Hct 43.8 MCV 94.9 MCH 32.4 MCHC 34.1 RDW 13.9 Plt Count 177 Neut % (Auto) 42.1 L Lymph % (Auto) 50.[address] [place] % (Auto) 5.9 Eos % (Auto) 0.5 L Baso % (Auto) 0.7 Neut # (Auto) 3000 ABG pH 7.31 L ABG pCO2 52.0 H ABG pO2 123 H ABG HCO3 26 ABG Total CO2 27 ABG O2 Saturation 98 ABG Base Excess 0.0 FiO2 40 Sodium 153 H Potassium 4.5 Chloride 111 H Carbon Dioxide 27 BUN 11 Creatinine 0.70 Estimated GFR > 60.0 BUN/Creatinine Ratio 15.7 Glucose 84 Calcium 8.1 L Magnesium 1.8 Total Bilirubin 0.2 AST 34 ALT 34 Alkaline Phosphatase 51 Total Protein 7.5 Albumin 4.4 Globulin 3.1 Albumin/Globulin Ratio 1.4 Lipase 124 Urine Opiates Screen Ur Oxycodone Screen Urine Methadone Screen Ur Barbiturates Screen U Tricyclic Antidepress Ur Phencyclidine Scrn Ur Amphetamines Screen U Methamphetamines Scrn Ur MDMA Scrn (Ecstasy) U Benzodiazepines Scrn Urine Cocaine Screen U Marijuana (THC) Screen Ethyl Alcohol 456 H* 04/02/18 17:12 WBC RBC Hgb Hct MCV MCH MCHC RDW Plt Count Neut % (Auto) Lymph % (Auto) [place] % (Auto) Eos % (Auto) Baso % (Auto) Neut # (Auto) ABG pH ABG pCO2 ABG pO2 ABG HCO3 ABG Total CO2 ABG O2 Saturation ABG Base Excess FiO2 Sodium Potassium Chloride Carbon Dioxide BUN Creatinine Estimated GFR BUN/Creatinine Ratio Glucose Calcium Magnesium Total Bilirubin AST ALT Alkaline Phosphatase Total Protein Albumin Globulin Albumin/Globulin Ratio Lipase Urine Opiates Screen Negative Ur Oxycodone Screen Negative Urine Methadone Screen Negative Ur Barbiturates Screen Negative U Tricyclic Antidepress Negative Ur Phencyclidine Scrn Negative Ur Amphetamines Screen Negative U Methamphetamines Scrn Negative Ur MDMA Scrn (Ecstasy) Negative U Benzodiazepines Scrn Negative Urine Cocaine Screen Negative U Marijuana (THC) Screen Positive H Ethyl Alcohol Assessment & Plan (1) Eating disorder: Problem details: not otherwise defined, possible Current visit: No Status: Acute (2) Epilepsy: Problem details: possibly secondary to alcoholism Current visit: No Status: Acute (3) Low back pain: Current visit: No Status: Acute (4) Depression: Problem details: history of suicidality Current visit: No Status: Acute (5) Alcoholism: Problem details: chronic and severe with multiple recurrent episodes of hospitalization, including intubation and respiratory support for airway protection Current visit: No Status: Acute (6) Acute hypernatremia: Problem details: Continue Free water and recheck in the morning Current visit: Yes Status: Acute
[2018-04-02] MEDS: CEFTRIAXONE 1 GM/50 ML FROZ.PIGGY IV (20:40)
[2018-04-02] MEDS: DEXTROSE 5% WATER 1,000 ML 100 ML IV (20:40)
[2018-04-02] MEDS: PROPOFOL 1,000 MG/100 ML VIAL 2.466 MG IV (20:41)
[2018-04-02] MEDS: ACETAMINOPHEN 650 MG SUPP PR (22:07)
--- NOTE | 2018-04-03 00:01 | PC.NURSE ---
Addendum entered by Lisseth Hermosillo R.N. 04/03/18 01:37: 0130-Patient had staff attempt to contact two more times, no answers, left message. Patient voided in BR, ate egg salad sandwich without problem, removed 2nd IV site on own, started pacing room. Left his room 101 through the side anti-room and left ICU. Found patient in halls, brought him back to ICU, called Dr Watkins, obtained order to allow to patient to leave AMA, he singed AMA paper, security intelligence analyst and coordinator aware. Patient left wearing hospital gown, pants, and socks. Original Note: 0000-Upon beginning of shift, patient is on ventilator but wide awake, removing restraints on own, propofol gtt at 5mcg/min, has been hypotensive per evening RN 90/40s, HR 90s-110. FIO2 35%, patient is not over-breathing vent. Had firm dicussion with patient not to pull ETT out until done by RT RT notified, C-pap trial started, Dr Watkins notified about above information and patient's respiratory status and mentation. Order obtained to extubate the patient. Patient is mildly anxious, trying to be calm and follow directions, tugging on Isabel, removed before he pulled it out on own, propofol stopped, given ice chips, IV fluids continue as ordered. 0015- phoned per patient's request, informed her that Abhinav was extubated and wanted to speak with her, she said already? Then transferred into room.
[2018-04-03 00:03] VITALS: BP 98/48; PULSE 96; RESP 18; TEMP 35.9; O2SAT 94
--- NOTE | 2018-04-03 00:10 | PC.NURSE ---
Addendum entered by Prabha Severino R.N. 04/03/18 00:13: pt't temp rising up to 100.8. Called Dr. Watkins and received order for rectal Tylenol. Original Note: barrera note pt admitted from ER on ventilator, propfol at 5 mcg/kg/min, not overbreathing the vent. Large amount of clear thick oral secretions suctioned. Yellow mucous suctioned from ETT and sent to lab. B/P mostly 90s/40s-50s, so propofol not increased when pt more wakeful with suctioning. Mouth and secretions from OGT smell of alcohol.
== END 2018-04-03 01:35 | disposition left against medical advice (07) | DRG 770 ==
LOC: ED 17:09 → ICU 18:34
PROVIDERS: Admitting Provider Internal Medicine; Emergency Provider Emergency Medicine; Family Provider Family Medicine; PCP Family Medicine; Visit Provider Internal Medicine
DX: F10.220 Alcohol dependence with intoxication, uncomplicated (principal); G40.509 Epileptic seizures related to external causes, not intractable, without status epilepticus; Y90.8 Blood alcohol level of 240 mg/100 ml or more; J98.19 Other pulmonary collapse; F32.9 Major depressive disorder, single episode, unspecified; R40.2443 Other coma, without documented Glasgow coma scale score, or with partial score reported, at hospital admission; J18.9 Pneumonia, unspecified organism
CPT/HCPCS: 31500; 36591; 36600; 71045; 80053; 80305; 80320; 81003; 82805; 83690; 83735; 85025; 87070; 87077; 87147; 87186; 87205; 87797; 94002; 94770; 94799; 99283; 99291; 99292; J2704

== ENCOUNTER 2018-07-09 17:10 | Emergency (ER) | payer OTHER, MEDICAID, SELFPAY ==
[2018-04-02 20:44] VITALS: BMI 23.2
[2018-04-02 22:26] VITALS: PULSE 96; RESP 14; O2SAT 96
[2018-07-09 17:16] VITALS: BP 137/87; PULSE 95; RESP 20; TEMP 37.1; O2SAT 96
--- NOTE | 2018-07-09 17:26 | PC.NURSE ---
pt contacted by PD after an argument with his during which he reportedly struck his head against a piece of furniture multiple times in an attempt to harm himself. The pt appears intoxicated with slurred speech and reports he drank about 40 ETOH today. He is ambulatory independently and answering questions appropriately. He states he has no intention of self harm, denies homicidal or suicidal ideation, denies other drug use today. notified, placed in high visibility room for safety
--- NOTE | 2018-07-09 17:46 | PC.NURSE ---
Pt w/ staff and ran out the ambulance bay door. Pt was 1:1 and ran past staff. Police called and found patient walking in front of hospital. Pt is slurring speech, has difficulty standing, states he does not want to stay. He was told that he may not leave as he is intoxicated by exam and has harmed himself tonight. States Bitch I will leave. [place] [employer] standing by at this time for 1:1. No new injury noted.
--- NOTE | 2018-07-09 18:15 | PC.NURSE ---
Addendum entered by Kaleigh Kruger R.N. 07/09/18 23:06: 2300 - Patient moved to room 12. Remains sleeping peacefully. No signs of discomfort noted. twisting frame fixer 1:1 briefed on patient. Original Note: Addendum entered by Kaleigh Kruger R.N. 07/09/18 22:46: 2145 - This nurse back at bedside. Patient remains resting peacefully with eyes closed and even, unlabored breathing, but has moved position. No signs of discomfort noted. BP 105/56; HR 53; 100% on room air; 20 resp. Original Note: Addendum entered by Kaleigh Kruger R.N. 07/09/18 22:45: 2130 - Patient remains sleeping. ED charge nurse Jaime in to sit with patient while this nurse takes a break. Original Note: Addendum entered by Kaleigh Kruger R.N. 07/09/18 22:15: 2215 - Patient remains asleep at this time. No signs of discomfort noted. Original Note: Addendum entered by Kaleigh Kruger R.N. 07/09/18 22:01: 2200 - BP 104/67; HR 59; 99% on room air; 16 resp. Patient rolled himself to side, provided pillow to which patient replied thank you. Patient back to sleep. Original Note: Addendum entered by Kaleigh Kruger R.N. 07/09/18 21:46: 2145 - Patient resting peacefully with eyes closed and even, unlabored breathing. No signs of discomfort noted. Original Note: Addendum entered by Kaleigh Kruger R.N. 07/09/18 21:30: 2130 - BP 109/67; HR 55; 97% on room air; 18 resp; Patient continues to sleep peacefully at this time. Repositions self minimally at times. No signs of discomfort noted. Original Note: Addendum entered by Kaleigh Kruger R.N. 07/09/18 21:15: 2114 - BP 101/56; HR 60; 98% room air; 18 Resp. Original Note: Addendum entered by Kaleigh Kruger R.N. 07/09/18 21:11: 2109 - This nurse back at bedside. Patient remains asleep. No signs of discomfort noted. Original Note: Addendum entered by Kaleigh Kruger R.N. 07/09/18 20:38: 2037 - Patient remains sleeping peacefully in bed. ED SENIOR SAFETY MANAGEMENT CONSULTANT now at bedside for 1:1. Original Note: Addendum entered by Kaleigh Kruger R.N. 07/09/18 20:26: 2024 - Patient continues to rest in bed with eyes closed and even, unlabored breathing. Shifting periodically in bed. BP 98/59; HR 54; and 100% on room air. Original Note: Addendum entered by Kaleigh Kruger R.N. 07/09/18 20:12: 2009 - Patient continues to rest peacefully in bed at this time with eyes closed and even, unlabored breathing. BP 95/48; HR 58; 96% on room air. Original Note: Addendum entered by Kaleigh Kruger R.N. 07/09/18 19:55: 1955 - Nurse practitioner remains at bedside placing sutures. Patient tolerating procedure well. 98% on room air. HR 58. Original Note: Addendum entered by Kaleigh Kruger R.N. 07/09/18 19:40: 1940 - Nurse practitioner at bedside addressing left eyebrow laceration. Patient resting peacefully on stretcher at this time. Following directions at this time. Vital signs stable. Original Note: Addendum entered by Kaleigh Kruger R.N. 07/09/18 19:17: 1920 - At 1855 Patient again standing up stating fuck you, I'm going to leave Attempted to talk patient down again, however patient instead walked past this nurse out of the room. This nurse followed patient through ED and past the ED doctors, notifying them of situation and that he stated he was leaving. Ed nursing baggage handling supervisor also got up and followed patient telling him to stay in the ED. Patient proceeded out the ED doors while being told to stay in ED per the Physician's order. He then left the ED and proceeded to run to the left out of the ambulance bay. Patient fell while running and hit head. This nurse and Ed baggage handling supervisor caught up to patient. Patient attempted to stand back up and fell back to the ground. [place] [employer] arrived and ED baggage handling supervisor called EMS. Patient remained conscious throughout, bleeding from left eyebrow. Lost control of bladder. EMS arrived and transferred patient back to ED room 1. 1924 - Patient in C-collar and taken to CT scan. Original Note: Addendum entered by Kaleigh Kruger R.N. 07/09/18 18:52: 1850 - Patient again got up and tried to leave. ED charge nurse and physician came and talked with patient again. Patient eating sandwiches. Original Note: Addendum entered by Kaleigh Kruger R.N. 07/09/18 18:46: 1845 - Patient stood up and asked for pants. Pointed out that patient already has pants on. Patient proceeded to take pants off and attempt to leave. After talking to patient he put pants back on and attempted to leave again. ED nurse talked with patient who sat back down in room, stating I'm still going to leave. Provided patient with sandwiches and water. Original Note: Addendum entered by Kaleigh Kruger R.N. 07/09/18 18:32: 1830 - Patient moved to room 3 with police escort. Ambulated without problem, but stated that he wanted to leave. Dr. Geronimo came and talked to patient. Original Note: Addendum entered by Kaleigh Kruger R.N. 07/09/18 18:27: 1825 - Patient requested socks, socks with nonslip given to patient and placed on feet. After this patient stood up and stated I'll be on my way now and attempted to walk calmly to the door. Told patient that he needed to wait for the doctor. [place] police department redirected patient back to the bed. Patient remains calm at this time. Original Note: Addendum entered by Kaleigh Kruger R.N. 07/09/18 18:22: 1815 addendum - not should read madelyn, not sutures Original Note: 1814 - Patient remains in room [address] Geronimo just left room after placing stitches to patient's head. Patient pacing calmly at bedside. 1819 - Patient assisted to bathroom with physician permission. Requested urine sample, but patient refused.
--- NOTE | 2018-07-09 18:18 | ED_ITS ---
HPI - Wound/Laceration <David Geronimo DO - Last Filed: 07/10/18 07:12> General Chief Complaint: Wound/Laceration Stated Complaint: Suicidal thoughts Time Seen by Provider: 07/09/18 17:16 Source: patient and police Mode of arrival: other (Police) Limitations: other (Intoxication) History of Present Illness HPI narrative: Patient is a 28-year-old male well known to this department for his alcohol use was brought in by police after they were called by the patient's . Is reported by the police that the patient his got into an argument and the patient started hitting his head on a piece of furniture. He does have a cut to his forehead. He denied any alcohol use. He walked in by police. Patient reports not having any alcohol tonight. He states that he hit his head on the shower door. Denies SI or HI. Related Data Home Medications Medication Instructions Recorded Confirmed Unobtainable 03/19/18 03/27/18 Allergies Allergy/AdvReac Type Severity Reaction Status Date / Time shrimp [SHRIMP] Allergy Severe THROAT Verified 03/27/18 15:27 SWELLING/HIVES diazepam [From VALIUM] Allergy Intermediate LEG Verified 03/27/18 15:27 SWELLING haloperidol [From HALDOL] Allergy Unknown DYSTONIA Verified 03/27/18 15:27 naproxen [NAPROXEN] AdvReac Mild NAUSEA/GI Verified 03/27/18 15:27 DISTRESS Review of Systems <David Geronimo DO - Last Filed: 07/10/18 07:12> Review of Systems Patient minimally cooperative with answering questions Constitutional Denies headache(s) ENT Ears, Nose, Mouth, and Throat: Denies vertigo, Denies dizziness and Denies headache(s) Cardiovascular Denies dyspnea Respiratory Denies dyspnea Musculoskeletal Denies back pain, Denies myalgias and Denies arthralgias Integumentary/Breasts Comments: Cut to forehead Neurologic Denies vertigo, Denies dizziness and Denies headache(s) Hematologic/Lymphatic Denies easy bleeding and Denies easy bruising PFSH <David Geronimo DO - Last Filed: 07/10/18 07:12> Social History household members: spouse and family Smoking Status: Unknown if ever smoked alcohol intake: current Exam <David Geronimo DO - Last Filed: 07/10/18 07:12> Initial Vital Signs Initial Vital Signs: Vital Signs Temperature 98.8 F 07/09/18 17:16 Pulse Rate 95 H 07/09/18 17:16 Respiratory Rate 20 07/09/18 17:16 Blood Pressure 137/87 07/09/18 17:16 Pulse Oximetry 96 07/09/18 17:16 Const General: No acute distress Orientation: alert and awake [facility] Head: other (Cut to forehead see skin section for evaluation) Resp Effort & Inspection: normal respiratory effort Cardio Rate: regular rate Skin Other: Patient with a 4 cm laceration to his forehead. No active bleeding. Neuro General: alert and awake Speech: other (Slight slurring of speech) Gait: normal gait Extrem General: capillary refill normal Other: No gross deformities Psych Other: Patient clinically intoxicated <Edward Rg DO - Last Filed: 07/10/18 00:48> Initial Vital Signs Initial Vital Signs: Vital Signs Temperature 98.8 F 07/09/18 17:16 Pulse Rate 95 H 07/09/18 17:16 Respiratory Rate 20 07/09/18 17:16 Blood Pressure 137/87 07/09/18 17:16 Pulse Oximetry 96 07/09/18 17:16 Procedures <David Geronimo DO - Last Filed: 07/10/18 07:12> Laceration Repair Laceration 1: Site: scalp Size (cm): 4 Description: linear Depth: simple, single layer Local Anesthetic: lidocaine 1% and with epi Amount of anesthesia used (mL): 5 Pre-repair: wound explored and irrigated extensively Skin layer closed with: madelyn <Edward Rg DO - Last Filed: 07/10/18 00:48> Laceration Repair Laceration 1: Site: face Side (If applicable): left Size (cm): 2.25 Description: stellate Depth: simple, single layer Local Anesthetic: lidocaine 1% and with epi Amount of anesthesia used (mL): 2 Pre-repair: wound explored and irrigated extensively Skin layer closed with: nylon Size (cm): 5-0 Number of sutures: 5 Technique: simple, interrupted Course <David Geronimo DO - Last Filed: 07/10/18 07:12> Orders Ordered: ED Orders 07/09/18 19:15 CT cervical spine wo con Stat CT head/brain wo con Stat Vital Signs - 8 hr 07/09/18 17:16 07/09/18 19:15 07/09/18 20:30 Temperature 98.8 F 98.8 F Pulse Rate 95 H 58 L 52 L Respiratory Rate 20 14 18 Blood Pressure 137/87 Blood Pressure [Right Arm] 108/67 97/57 L Pulse Oximetry 96 98 98 07/09/18 21:00 07/09/18 22:00 07/09/18 22:30 Temperature Pulse Rate 55 L 56 L 52 L Respiratory Rate 18 17 Blood Pressure Blood Pressure [Right Arm] 101/56 L 104/67 105/56 L Pulse Oximetry 98 98 100 <Edward Rg, DO - Last Filed: 07/10/18 00:48> Course Narrative: Patient received in sign-out from Dr. Geronimo. I have performed an independent history and physical and have no significant new findings. The patient had briefly eloped and in running through our ambulance Van doors and outside he tripped and fell and struck his head. He did not have any loss of consciousness and has had no vomiting. He did suffer a new laceration over his left eye. He has had imaging of head and C-spine and lack repair has been performed. Orders Ordered: ED Orders 07/09/18 19:15 CT cervical spine wo con Stat CT head/brain wo con Stat Reevaluation(s) Reevaluation #1: Patient is awake, alert and oriented. He is speaking clearly without slurring his words and understands the consequences of his actions. We had a lengthy discussion about his plans moving forward with his alcoholism and he has an inpatient facility that he is awaiting placement at. He is able to walk a straight line without stumbling. He very quickly demonstrates capacity to make his own decisions. He denies any desire to hurt himself or others. He is discharged in understands scenarios which would prompt his return Vital Signs - 8 hr 07/09/18 17:16 07/09/18 19:15 07/09/18 20:30 Temperature 98.8 F 98.8 F Pulse Rate 95 H 58 L 52 L Respiratory Rate 20 14 18 Blood Pressure 137/87 Blood Pressure [Right Arm] 108/67 97/57 L Pulse Oximetry 96 98 98 07/09/18 21:00 07/09/18 22:00 07/09/18 22:30 Temperature Pulse Rate 55 L 56 L 52 L Respiratory Rate 18 17 Blood Pressure Blood Pressure [Right Arm] 101/56 L 104/67 105/56 L Pulse Oximetry 98 98 100 MDM - Wound/Laceration <David Geronimo, DO - Last Filed: 07/10/18 07:12> MDM Narrative Medical decision making narrative: Patient was brought in by police with an NIRANJAN. This NIRANJAN was done because he was hitting his head on a piece of furniture. He never expressed any suicidal homicidal thoughts. He denied any suicidal or homicidal thoughts here. He denies any alcohol use however clinically he appears intoxicated and his breath smells of alcohol. He also has a history of significant alcohol use. Before I evaluated him he did leave the department. He was brought back by police. I do not feel that he needs to be evaluated by [facility] however given his current clinical state I feel like he is not safe to leave the department for fear that he potentially would fall or potentially walk out into traffic. The police called his who was unwilling to come and pick him up. Patient has no other friends or family here in the area to come and pick him up. I informed him that he needed to stay here in the emergency department until he yarely up. He once again left the department and as he was running out of the ambulance plate tripped and fell and hit his head. He was brought back to the department not on a backboard are not in a cervical collar. He was placed in a cervical collar here. Head CT and cervical spine CT were ordered. Care turned over to night provider. <Edward Rg, DO - Last Filed: 07/10/18 00:48> Imaging Data CT scan - head: Radiologist's impression: [address] [address] [address] Scan Report Signed Patient: Abhinav Herr WMR#: [id number] : 1990Acct:[id number] Age/Sex: 28 / MDate of Service: 07/09/18 Loc: ED Accession Number: [id number] Procedure: CT head/brain wo con Ordering Provider: David Geronimo D.O. PROCEDURE: CT HEAD/BRAIN WO CON INDICATIONS: Fall with head laceration TECHNIQUE: Noncontrast 4.5 mm thick angled axial sections acquired from the foramen magnum to the vertex, with coronal and sagittal reformats. For radiation dose reduction, the following was used: automated exposure control, adjustment of mA and/or kV according to patient size. COMPARISON: [facility], CT, CT HEAD/BRAIN WO CON, 03/27/2018, 15:42. FINDINGS: Image quality: Excellent. CSF spaces: Basal cisterns are patent. No extra-axial fluid collections. Ventricles are normal in size and shape. Brain: No midline shift. No intracranial masses or hemorrhage. Dey-white matter interface is normal. Skull and face: Frontal scalp laceration is seen. Calvarium and visualized facial bones are intact, without suspicious lesions. Sinuses: Visualized sinuses and mastoids are clear. IMPRESSION: No CT evidence of acute intracranial pathology. Frontal scalp laceration. No acute skull fracture. Dictated by: Addy Alex M.D. on 07/09/2018 at 19:42 Approved by: Addy Alex M.D. on 07/09/2018 at 19:42 CT C spine: Radiologist's impression: 1990Acct:[id number] Age/Sex: 28 / MDate of Service: 07/09/18 Loc: ED Accession Number: [id number] Procedure: CT cervical spine wo con Ordering Provider: David Geronimo D.O. PROCEDURE: CT CERVICAL SPINE WO CON INDICATIONS: fall TECHNIQUE: Noncontrast 3 mm thick sections acquired from the skull base to the T4 level. Sagittal and coronal reformats were then constructed. For radiation dose reduction, the following was used: automated exposure control, adjustment of mA and/or kV according to patient size. COMPARISON: [facility], CT, CT CERVICAL SPINE WO CON, 03/03/2018, 22:54. FINDINGS: Image quality: Excellent. Bones: No fractures or dislocations. Visualized superior ribs are intact. Soft tissues: Prevertebral soft tissues are normal in thickness. No paravertebral hematomas. No apical pneumothoraces. IMPRESSION: No acute cervical spine fracture or spondylolisthesis. Dictated by: Addy Alex M.D. on 07/09/2018 at 19:42 Approved by: Addy Alex M.D. on 07/09/2018 at 19:43 Discharge Plan Departure Patient Disposition: Home Clinical Impression: Alcohol abuse Face lacerations Qualifiers: Encounter type: initial encounter Qualified Code(s): S01.81XA - Laceration without foreign body of other part of head, initial encounter Discharge Date/Time: 07/09/18 23:36 Interventions: ED Discharge Assessment Last Done: 07/09/18 23:37 Instructions: DI for Laceration Repair Activity Restrictions/Additional Instructions: Please keep the wound clean and dry to the best of your ability. Please monitor for signs of infection such as redness to the skin or increasing pain. Have the sutures removed by your doctor in about 7 days. If you are unable to get into your doctor, we would be happy to remove the sutures in that same timeframe. Prescriptions: No Action Unobtainable RF: 0 Referrals: Luigi Bains MD [Primary Care Provider] -
--- NOTE | 2018-07-09 18:56 | PC.NURSE ---
Please note the sitter does not have access to document in regular assessments. Is documenting safety checks in nursing notes
[2018-07-09 19:15] VITALS: BP 108/67; PULSE 58; RESP 14; TEMP 37.1; O2SAT 98
--- NOTE | 2018-07-09 19:15 | DI.CT.S_ITS ---
PROCEDURE: CT HEAD/BRAIN WO CON INDICATIONS: Fall with head laceration TECHNIQUE: Noncontrast 4.5 mm thick angled axial sections acquired from the foramen magnum to the vertex, with coronal and sagittal reformats. For radiation dose reduction, the following was used: automated exposure control, adjustment of mA and/or kV according to patient size. COMPARISON: [facility], CT, CT HEAD/BRAIN WO CON, 03/27/2018, 15:42. FINDINGS: Image quality: Excellent. CSF spaces: Basal cisterns are patent. No extra-axial fluid collections. Ventricles are normal in size and shape. Brain: No midline shift. No intracranial masses or hemorrhage. Dey-white matter interface is normal. Skull and face: Frontal scalp laceration is seen. Calvarium and visualized facial bones are intact, without suspicious lesions. Sinuses: Visualized sinuses and mastoids are clear. IMPRESSION: No CT evidence of acute intracranial pathology. Frontal scalp laceration. No acute skull fracture. Dictated by: Addy Alex M.D. on 07/09/2018 at 19:42 Approved by: Addy Alex M.D. on 07/09/2018 at 19:42
--- NOTE | 2018-07-09 19:15 | DI.CT.S_ITS ---
PROCEDURE: CT CERVICAL SPINE WO CON INDICATIONS: fall TECHNIQUE: Noncontrast 3 mm thick sections acquired from the skull base to the T4 level. Sagittal and coronal reformats were then constructed. For radiation dose reduction, the following was used: automated exposure control, adjustment of mA and/or kV according to patient size. COMPARISON: [facility], CT, CT CERVICAL SPINE WO CON, 03/03/2018, 22:54. FINDINGS: Image quality: Excellent. Bones: No fractures or dislocations. Visualized superior ribs are intact. Soft tissues: Prevertebral soft tissues are normal in thickness. No paravertebral hematomas. No apical pneumothoraces. IMPRESSION: No acute cervical spine fracture or spondylolisthesis. Dictated by: Addy Alex M.D. on 07/09/2018 at 19:42 Approved by: Addy Alex M.D. on 07/09/2018 at 19:43
--- NOTE | 2018-07-09 19:21 | PC.NURSE ---
Pt again ran out by 1:1 nurse at bedside. Nurse had to step aside to avoid injury. Pt ran out of ambulance bay doors. Myself and 1:1 nurse followed. 911 was called for assistance. Pt found lying prone in ambulance drive way. Pt apparently tripped and fell striking his left eyebrow /face on pavement. Does not appear that he attempted to break his fall. Pt getting to feet (asked to stay on ground to await c-collar and assistance) pt got to feet and started to walk and fell backwards and struck his head on the pavement (attempted to break fall, unable). Pt w/ no LOC. Moving all extremities w/o difficulty. Noted blood from left eyebrow wound. Pt rolled w/ c spine precautions to recovery position. EMS activated for assist in bringing back to ED. Pt brought back to ED, to room one. in to antonio.
[2018-07-09 20:30] VITALS: BP 97/57; PULSE 52; RESP 18; O2SAT 98
[2018-07-09 21:00] VITALS: BP 101/56; PULSE 55; RESP 18; O2SAT 98
--- NOTE | 2018-07-09 21:01 | PC.NURSE ---
BOILERHOUSE MECHANIC/MANAGER STRATEGY & ACCOUNT Note: Pt. is sleeing. vitals signs taken. B/P:101/56, P:55, R:18, O2:98% R_
--- NOTE | 2018-07-09 21:07 | PC.NURSE ---
STAMP CLASSIFIER/ETL DEVELOPER Note: Pt. is sleeping. vitals signs taken B/P 101/56; R18; O2 98%; P60.
[2018-07-09 22:00] VITALS: BP 104/67; PULSE 56; RESP 17; O2SAT 98
[2018-07-09 22:30] VITALS: BP 105/56; PULSE 52; O2SAT 100
--- NOTE | 2018-07-09 22:38 | PC.NURSE ---
2233- Dr. Rg removed C-collar. Pt mumbled and returns to sleeping. Respirations even and unlabored. Pt appears in no distress. RN remains at bedside with q15 min charting.
--- NOTE | 2018-07-09 23:13 | PC.NURSE ---
Pt. awake and alert and wanted to leave, walking in room. ER MD cleared him to go home, looking for his clothings and belonginns so pt. can go home.
--- NOTE | 2018-07-09 23:35 | PC.NURSE ---
Pt. dress himself, is alert and appropriate, steady on his feet, walking without any difficulty and is leaving the ER with ER MD ok'd for pt. to leave.
== END 2018-07-09 23:36 | disposition home or self-care (01) ==
PROVIDERS: Emergency Provider Emergency Medicine; Family Provider Family Medicine; PCP Family Medicine
DX: S01.81XA Laceration without foreign body of other part of head, initial encounter (principal); F10.10 Alcohol abuse, uncomplicated; W22.8XXA Striking against or struck by other objects, initial encounter
CPT/HCPCS: 12011; 70450; 72125; 99285

== ENCOUNTER 2018-07-10 20:35 | Emergency (ER) | payer OTHER, MEDICAID, SELFPAY ==
[2018-04-02 20:44] VITALS: BMI 23.2
[2018-04-02 22:26] VITALS: PULSE 96; RESP 14; O2SAT 96
--- NOTE | 2018-07-10 20:41 | ED.ALCOHOL ---
HPI - Alcohol General Chief Complaint: Psychiatric Symptoms Stated Complaint: Brought by police Time Seen by Provider: 07/10/18 20:39 [facility] Mode of arrival: other (PD) Limitations: no limitations History of Present Illness HPI narrative: This is a 28-year-old male who is brought to the emergency department for alcohol abuse. Patient was brought here by PD [facility]. He was contacted by regional crisis Line who requested that he evaluate the patient. Patient has been here before and been detained multiple times under [place] law. He went to the house today, the report was that patient was unconscious although he was alert when he arrived. Patient was evaluated and brought her by PD. He asked for medical clearance from us and then plan to evaluate for potential detainment for recurrent alcohol abuse. Patient is not here voluntarily but has not been aggressive with staff. He denies any suicidal or homicidal ideation or intent. He does have a large bruise as well as swelling of his left upper lid in sutures. Related Data Home Medications Medication Instructions Recorded Confirmed Unobtainable 03/19/18 03/27/18 Allergies Allergy/AdvReac Type Severity Reaction Status Date / Time shrimp [SHRIMP] Allergy Severe THROAT Verified 07/10/18 20:45 SWELLING/HIVES diazepam [From VALIUM] Allergy Intermediate LEG Verified 07/10/18 20:45 SWELLING haloperidol [From HALDOL] Allergy Unknown DYSTONIA Verified 07/10/18 20:45 naproxen [NAPROXEN] AdvReac Mild NAUSEA/GI Verified 07/10/18 20:45 DISTRESS PFSH Social History household members: spouse and family Smoking Status: Unknown if ever smoked alcohol intake: current Exam Narrative Exam Narrative: GEN: well nourished, well appearing male, alert and oriented x 3, patient appears to be in mild distress. HEENT: Patient has ecchymosis and periorbital swelling of the left eyelid along with some sutures just adjacent to the brow. pupils are equal round reactive to light, extraocular movements are intact, nares are clear, TMs are clear with no fluid, there is no conjunctival pallor. Throat is clear without any exudates, erythema, tonsillar enlargement or uvular deviation HEART: Regular rate and rhythm without murmur, clicks, rubs. LUNGS:Lungs clear to auscultation, no wheezes, rales, crackles, chest moves symmetrically ABD:bowel sounds normal, soft, non-tender, no guarding, rebound, rigidity, no masses noted, no hepatosplenomegaly :No CVA tenderness MSCL: Non-tender, no muscle atrophy, muscles strength 5/5 upper and lower extremities, full range of motion, normal gait NEURO:CN 2-12 intact, sensation normal, reflexes 2/4 upper and lower extremities. PYSCH: Denies suicidal ideation or intent, denies intent to hurt others. Positive for etoh use. Initial Vital Signs Initial Vital Signs: Vital Signs Temperature 98.1 F 07/10/18 20:45 Pulse Rate 57 L 07/10/18 20:45 Respiratory Rate 14 07/10/18 20:45 Blood Pressure 123/80 07/10/18 20:45 Pulse Oximetry 98 07/10/18 20:45 Scores GCS [place] coma scale eye opening: Spontaneous Izzy coma scale verbal response: Orientated [place] coma scale motor response: Obey commands Izzy coma scale total score: 15 Course Orders Ordered: ED Orders 07/10/18 21:58 Urine Drug Screen, Rapid Stat Vital Signs - 8 hr 07/10/18 23:08 07/11/18 02:50 Temperature 97.4 F L 98.1 F Pulse Rate 56 L 96 H Respiratory Rate 16 15 Blood Pressure [Left Arm] 110/64 115/64 Pulse Oximetry 100 96 MDM - Alcohol Lab Data Attestation: I reviewed the patient's lab results. Result diagrams: 07/10/18 20:52 07/10/18 20:52 Labs: Lab Results 07/10/18 07/10/18 07/10/18 Range/Units 20:52 20:52 20:52 WBC 9.1 (4.5-11.0) X10^3/uL RBC 5.00 (4.5-5.9) X10^6/uL Hgb 15.4 (13.5-17.5) g/dL Hct 46.0 (41-53) % MCV 92.1 (80-100) fL MCH 30.8 (26-34) PG MCHC 33.5 (30-36) % RDW 13.1 (11.6-14.8) % Plt Count 169 (150-400) X10^3/uL Neut % (Auto) 65.0 (50-75) % Lymph % (Auto) 31.0 (25-40) % Mills % (Auto) 3.4 (3-14) % Eos % (Auto) 0.0 L (2-4) % Baso % (Auto) 0.6 (0-2) % Neut # (Auto) 5900 (2006-8151) /uL Lymph # (Auto) 2800 (9351-0930) /uL Mills # (Auto) 300 (0-900) /uL Eos # (Auto) 0 (0-450) /uL Baso # (Auto) 100 (0-100) /uL Sodium 146 H (137-145) mmol/L Potassium 4.1 (3.4-5.1) mmol/L Chloride 106 (98-107) mmol/L Carbon Dioxide 22 (22-32) mmol/L BUN 8 L (9-20) mg/dL Creatinine 0.60 L (0.66-1.25) mg/dL Estimated GFR > 60.0 (>60) mL/min BUN/Creatinine Ratio 13.3 (6-22) Glucose 87 (70-100) mg/dL Calcium 8.9 (8.4-10.2) mg/dL Total Bilirubin 0.4 (0.2-1.3) mg/dL AST 32 (17-59) IU/L ALT 36 (21-72) IU/L Alkaline Phosphatase 73 (38-126) U/L Total Protein 8.7 H (6.3-8.2) g/dL Albumin 4.9 (3.5-5.0) g/dL Globulin 3.8 (1.7-4.1) g/dL Albumin/Globulin Ratio 1.3 (1.0-2.8) TSH 0.54 (0.47-4.68) uIU/mL Salicylates < 1.0 (<20) mg/dL Urine Opiates Screen (Negative) Ur Oxycodone Screen (Negative) Urine Methadone Screen (Negative) Acetaminophen < 10 L (10-30) ug/mL Ur Barbiturates Screen (Negative) U Tricyclic Antidepress (Negative) Ur Phencyclidine Scrn (Negative) Ur Amphetamines Screen (Negative) U Methamphetamines Scrn (Negative) Ur MDMA Scrn (Ecstasy) (Negative) U Benzodiazepines Scrn (Negative) Urine Cocaine Screen (Negative) U Marijuana (THC) Screen (Negative) Ethyl Alcohol 275 mg/dL 07/10/18 Range/Units 21:58 WBC (4.5-11.0) X10^3/uL RBC (4.5-5.9) X10^6/uL Hgb (13.5-17.5) g/dL Hct (41-53) % MCV (80-100) fL MCH (26-34) PG MCHC (30-36) % RDW (11.6-14.8) % Plt Count (150-400) X10^3/uL Neut % (Auto) (50-75) % Lymph % (Auto) (25-40) % Mills % (Auto) (3-14) % Eos % (Auto) (2-4) % Baso % (Auto) (0-2) % Neut # (Auto) (4908-4370) /uL Lymph # (Auto) (9376-5561) /uL Mills # (Auto) (0-900) /uL Eos # (Auto) (0-450) /uL Baso # (Auto) (0-100) /uL Sodium (137-145) mmol/L Potassium (3.4-5.1) mmol/L Chloride (98-107) mmol/L Carbon Dioxide (22-32) mmol/L BUN (9-20) mg/dL Creatinine (0.66-1.25) mg/dL Estimated GFR (>60) mL/min BUN/Creatinine Ratio (6-22) Glucose (70-100) mg/dL Calcium (8.4-10.2) mg/dL Total Bilirubin (0.2-1.3) mg/dL AST (17-59) IU/L ALT (21-72) IU/L Alkaline Phosphatase (38-126) U/L Total Protein (6.3-8.2) g/dL Albumin (3.5-5.0) g/dL Globulin (1.7-4.1) g/dL Albumin/Globulin Ratio (1.0-2.8) TSH (0.47-4.68) uIU/mL Salicylates (<20) mg/dL Urine Opiates Screen Negative (Negative) Ur Oxycodone Screen Negative (Negative) Urine Methadone Screen Negative (Negative) Acetaminophen (10-30) ug/mL Ur Barbiturates Screen Negative (Negative) U Tricyclic Antidepress Negative (Negative) Ur Phencyclidine Scrn Negative (Negative) Ur Amphetamines Screen Negative (Negative) U Methamphetamines Scrn Negative (Negative) Ur MDMA Scrn (Ecstasy) Negative (Negative) U Benzodiazepines Scrn Negative (Negative) Urine Cocaine Screen Negative (Negative) U Marijuana (THC) Screen Positive H (Negative) Ethyl Alcohol mg/dL MDM Narrative Medical decision making narrative: Patient arrived with PD [facility]. He had a short evaluation. With the patient at their own personal home and brought the patient here with feeling that he would be detained. Patient was evaluated and medically. His alcohol is in the 200s but this is quite consistent for him and he is presenting as a fairly sober individual in comparison to his usual presentations to the ER. Patient is not willing participant in his care and does not wish to be present here at this time. He is denying suicidal and/or homicidal ideation or intent. [facility] is concerned with his alcoholic history that he will continue to drink which has resulted in multiple intubations as well as involuntary detainment under [place]'s Law. There are only two sites available for Abhin[facility]. The only 1 with beds available is in [place]. They did accept. Transportation was arranged to but because of scheduling they will not be here to oyster picker the patient until 8:45 a.m.. Patient's bed is actually available at 7:00 a.m. Nursing did clarify with facility at [place] and they are aware that patient is not leaving until 7am. Patient signed out to Dr. Hopkins, while awaiting transportation. Discharge Plan Departure Patient Disposition: Released, Other Clinical Impression: Acute alcoholism Prescriptions: No Action Unobtainable RF: 0 Referrals: Luigi Bains MD [Primary Care Provider] -
--- NOTE | 2018-07-10 20:44 | ED_ITS ---
HPI - Alcohol General Chief Complaint: Psychiatric Symptoms Stated Complaint: Brought by police Time Seen by Provider: 07/10/18 20:39 [facility] Mode of arrival: other (PD) Limitations: no limitations History of Present Illness HPI narrative: This is a 28-year-old male who is brought to the emergency department for alcohol abuse. Patient was brought here by PD [facility]. He was contacted by regional crisis Line who requested that he evaluate the patient. Patient has been here before and been detained multiple times under [place] law. He went to the house today, the report was that patient was unconscious although he was alert when he arrived. Patient was eval uated and brought her by PD. He asked for medical clearance from us and then plan to evaluate for potential detainment for recurrent alcohol abuse. Patient is not here voluntarily but has not been aggressive with staff. He denies any suicidal or homicidal ideation or intent. He does have a large bruise as well as swelling of his left upper lid in sutures. Related Data Home Medications Medication Instructions Recorded Confirmed Unobtainable 03/19/18 03/27/18 Allergies Allergy/AdvReac Type Severity Reaction Status Date / Time shrimp [SHRIMP] Allergy Severe THROAT Verified 07/10/18 20:45 SWELLING/HIVES diazepam [From VALIUM] Allergy Intermediate LEG Verified 07/10/18 20:45 SWELLING haloperidol [From HALDOL] Allergy Unknown DYSTONIA Verified 07/10/18 20:45 naproxen [NAPROXEN] AdvReac Mild NAUSEA/GI Verified 07/10/18 20:45 DISTRESS PFSH Social History household members: spouse and family Smoking Status: Unknown if ever smoked alcohol intake: current Exam Narrative Exam Narrative: GEN: well nourished, well appearing male, alert and oriented x 3, patient appears to be in mild distress. HEENT: Patient has ecchymosis and periorbital swelling of the left eyelid along with some sutures just adjacent to the brow. pupils are equal round reactive to light, extraocular movements are intact, nares are clear, TMs are clear with no fluid, there is no conjunctival pallor. Throat is clear without any exudates, erythema, tonsillar enlargement or uvular deviation HEART: Regular rate and rhythm without murmur, clicks, rubs. LUNGS:Lungs clear to auscultation, no wheezes, rales, crackles, chest moves symmetrically ABD:bowel sounds normal, soft, non-tender, no guarding, rebound, rigidity, no masses noted, no hepatosplenomegaly :No CVA tenderness MSCL: Non-tender, no muscle atrophy, muscles strength 5/5 upper and lower extremities, full range of motion, normal gait NEURO:CN 2-12 intact, sensation normal, reflexes 2/4 upper and lower extrem ities. PYSCH: Denies suicidal ideation or intent, denies intent to hurt others. Positive for etoh use. Initial Vital Signs Initial Vital Signs: Vital Signs Temperature 98.1 F 07/10/18 20:45 Pulse Rate 57 L 07/10/18 20:45 Respiratory Rate 14 07/10/18 20:45 Blood Pressure 123/80 07/10/18 20:45 Pulse Oximetry 98 07/10/18 20:45 Scores GCS [place] coma scale eye opening: Spontaneous Izzy coma scale verbal response: Orientated [place] coma scale motor response: Obey commands [place] coma scale total score: 15 Course Orders Ordered: ED Orders 07/10/18 21:58 Urine Drug Screen, Rapid Stat Vital Signs - 8 hr 07/10/18 23:08 07/11/18 02:50 Temperature 97.4 F L 98.1 F Pulse Rate 56 L 96 H Respiratory Rate 16 15 Blood Pressure [Left Arm] 110/64 115/64 Pulse Oximetry 100 96 MDM - Alcohol Lab Data Attestation: I reviewed the patient's lab results. Result diagrams: 07/10/18 20:52 07/10/18 20:52 Labs: Lab Results 07/10/18 07/10/18 07/10/18 Range/Units 20:52 20:52 20:52 WBC 9.1 (4.5-11.0) X10^3/uL RBC 5.00 (4.5-5.9) X10^6/uL Hgb 15.4 (13.5-17.5) g/dL Hct 46.0 (41-53) % MCV 92.1 (80-100) fL MCH 30.8 (26-34) PG MCHC 33.5 (30-36) % RDW 13.1 (11.6-14.8) % Plt Count 169 (150-400) X10^3/uL Neut % (Auto) 65.0 (50-75) % Lymph % (Auto) 31.0 (25-40) % [place] % (Auto) 3.4 (3-14) % Eos % (Auto) 0.0 L (2-4) % Baso % (Auto) 0.6 (0-2) % Neut # (Auto) 5900 (1115-2684) /uL Lymph # (Auto) 2800 (5575-5706) /uL Prentiss # (Auto) 300 (0-900) /uL Eos # (Auto) 0 (0-450) /uL Baso # (Auto) 100 (0-100) /uL Sodium 146 H (137-145) mmol/L Potassium 4.1 (3.4-5.1) mmol/L Chloride 106 (98-107) mmol/L Carbon Dioxide 22 (22-32) mmol/L BUN 8 L (9-20) mg/dL Creatinine 0.60 L (0.66-1.25) mg/dL Estimated GFR > 60.0 (>60) mL/min BUN/Creatinine Ratio 13.3 (6-22) Glucose 87 (70-100) mg/dL Calcium 8.9 (8.4-10.2) mg/dL Total Bilirubin 0.4 (0.2-1.3) mg/dL AST 32 (17-59) IU/L ALT 36 (21-72) IU/L Alkaline Phosphatase 73 (38-126) U/L Total Protein 8.7 H (6.3-8.2) g/dL Albumin 4.9 (3.5-5.0) g/dL Globulin 3.8 (1.7-4.1) g/dL Albumin/Globulin Ratio 1.3 (1.0-2.8) TSH 0.54 (0.47-4.68) uIU/mL Salicylates < 1.0 (<20) mg/dL Urine Opiates Screen (Negative) Ur Oxycodone Screen (Negative) Urine Methadone Screen (Negative) Acetaminophen < 10 L (10-30) ug/mL Ur Barbiturates Screen (Negative) U Tricyclic Antidepress (Negative) Ur Phencyclidine Scrn (Negative) Ur Amphetamines Screen (Negative) U Methamphetamines Scrn (Negative) Ur MDMA Scrn (Ecstasy) (Negative) U Benzodiazepines Scrn (Negative) Urine Cocaine Screen (Negative) U Marijuana (THC) Screen (Negative) Ethyl Alcohol 275 mg/dL 07/10/18 Range/Units 21:58 WBC (4.5-11.0) X10^3/uL RBC (4.5-5.9) X10^6/uL Hgb (13.5-17.5) g/dL Hct (41-53) % MCV (80-100) fL MCH (26-34) PG MCHC (30-36) % RDW (11.6-14.8) % Plt Count (150-400) X10^3/uL Neut % (Auto) (50-75) % Lymph % (Auto) (25-40) % [place]iss % (Auto) (3-14) % Eos % (Auto) (2-4) % Baso % (Auto) (0-2) % Neut # (Auto) (2970-6377) /uL Lymph # (Auto) (9627-1437) /uL [place]iss # (Auto) (0-900) /uL Eos # (Auto) (0-450) /uL Baso # (Auto) (0-100) /uL Sodium (137-145) mmol/L Potassium (3.4-5.1) mmol/L Chloride (98-107) mmol/L Carbon Dioxide (22-32) mmol/L BUN (9-20) mg/dL Creatinine (0.66-1.25) mg/dL Estimated GFR (>60) mL/min BUN/Creatinine Ratio (6-22) Glucose (70-100) mg/dL Calcium (8.4-10.2) mg/dL Total Bilirubin (0.2-1.3) mg/dL AST (17-59) IU/L ALT (21-72) IU/L Alkaline Phosphatase (38-126) U/L Total Protein (6.3-8.2) g/dL Albumin (3.5-5.0) g/dL Globulin (1.7-4.1) g/dL Albumin/Globulin Ratio (1.0-2.8) TSH (0.47-4.68) uIU/mL Salicylates (<20) mg/dL Urine Opiates Screen Negative (Negative) Ur Oxycodone Screen Negative (Negative) Urine Methadone Screen Negative (Negative) Acetaminophen (10-30) ug/mL Ur Barbiturates Screen Negative (Negative) U Tricyclic Antidepress Negative (Negative) Ur Phencyclidine Scrn Negative (Negative) Ur Amphetamines Screen Negative (Negative) U Methamphetamines Scrn Negative (Negative) Ur MDMA Scrn (Ecstasy) Negative (Negative) U Benzodiazepines Scrn Negative (Negative) Urine Cocaine Screen Negative (Negative) U Marijuana (THC) Screen Positive H (Negative) Ethyl Alcohol mg/dL MDM Narrative Medical decision making narrative: Patient arrived with PD at the request of the [facility] Mikey. He had a short evaluation. With the patient at their own personal home and brought the patient here with feeling that he would be detained. Patient was evaluated and medically. His alcohol is in the 200s but this is quite consistent for him and he is presenting as a fairly sober individual in comparison to his usual presentations to the ER. Patient is not willing participant in his care and does not wish to be present here at this time. He is denying suicidal and/or homicidal ideation or intent. [facility] is concerned with his alcoholic history that he will continue to drink which has resulted in multiple intubations as well as involuntary detainment under [place]'s Law. There are only two sites available for [facility]hin[facility]. The only 1 with beds available is in [place]. They did accept. Transportation was arranged to but because of scheduling they will not be here to picking table worker the patient until 8:45 a.m.. Patient's bed is actually available at 7:00 a.m. Nursing did clarify with facility at [place] and they are aware that patient is not leaving until 7am. Patient signed out to Dr. Hopkins, while awaiting transportation. Discharge Plan Departure Patient Disposition: Released, Other Clinical Impression: Acute alcoholism Prescriptions: No Action Unobtainable RF: 0 Referrals: Luigi Bains MD [Primary Care Provider] -
[2018-07-10 20:45] VITALS: BP 123/80; PULSE 57; RESP 14; TEMP 36.7; O2SAT 98; BMI 24.4
[2018-07-10 21:06] LABS: Add Manual Diff / Slide Review NO; Basophils Absolute Auto 100 /uL (0-100); Basophils Percent Auto 0.6 % (0-2); Eosinophils Absolute Auto 0 /uL (0-450); Hemoglobin 15.4 g/dL (13.5-17.5); Lymphocytes Absolute Auto 2800 /uL (1100-4500); Mean Corpuscular HGB Conc 33.5 % (30-36); Mean Corpuscular Hemoglobin 30.8 PG (26-34); Mean Corpuscular Volume 92.1 fL (80-100); Monocytes Absolute Auto 300 /uL (0-900); Monocytes Percent Auto 3.4 % (3-14); Neutrophils Absolute Auto 5900 /uL (1500-7000); Platelet Count 169 X10^3/uL (150-400); Red Cell Distribution Width 13.1 % (11.6-14.8); White Blood Cell Count 9.1 X10^3/uL (4.5-11.0)
[2018-07-10 21:19] LABS: Acetaminophen < 10 ug/mL (10-30); Alanine Aminotransferase 36 IU/L (21-72); Albumin 4.9 g/dL (3.5-5.0); Albumin Globulin Ratio 1.3 (1.0-2.8); Alkaline Phosphatase 73 U/L (38-126); Aspartate Aminotransferase 32 IU/L (17-59); BUN Creatinine Ratio 13.3 (6-22); Bilirubin Total 0.4 mg/dL (0.2-1.3); Blood Urea Nitrogen 8 mg/dL (9-20); Calcium 8.9 mg/dL (8.4-10.2); Carbon Dioxide 22 mmol/L (22-32); Chloride 106 mmol/L (98-107); Estimated Glomerular Filt Rate > 60.0 mL/min (>60); Ethanol (ETOH) 275 mg/dL; Globulin 3.8 g/dL (1.7-4.1); Glucose 87 mg/dL (70-100); HEMOLYSIS < 15 (0-50); Potassium 4.1 mmol/L (3.4-5.1); Sodium 146 mmol/L (137-145); Total Protein 8.7 g/dL (6.3-8.2)
--- NOTE | 2018-07-10 21:20 | PC.NURSE ---
Pt sitting on stretcher,pt requesting a blanket.
[2018-07-10 21:23] LABS: Salicylate < 1.0 mg/dL (<20)
--- NOTE | 2018-07-10 21:30 | PC.NURSE ---
pt respectful and calm when approached. He is cooperative when asked to stand further from door
--- NOTE | 2018-07-10 21:37 | PC.NURSE ---
pt provided water, sandwich and cheese stick
--- NOTE | 2018-07-10 21:44 | PC.NURSE ---
Pts is here talking to social work. pt laying down resting, calm
[2018-07-10 22:00] LABS: Thyroid Stimulating Hormone 0.54 uIU/mL (0.47-4.68)
[2018-07-10 22:03] LABS: Urine Tetrahydrocannabinol Positive (Negative)
[2018-07-10 22:04] LABS: Urine Amphetamines Negative (Negative); Urine Barbiturates Negative (Negative); Urine Benzodiazepines Negative (Negative); Urine Cocaine Negative (Negative); Urine MDMA Negative (Negative); Urine Methadone Negative (Negative); Urine Methamphetamines Negative (Negative); Urine Morphine/Opi cutoff 2000 Negative (Negative); Urine Oxycodone Negative (Negative); Urine Phencyclidine Negative (Negative); Urine Tricyclic Antidepressant Negative (Negative)
--- NOTE | 2018-07-10 22:51 | PC.NURSE ---
pt still laying in bed sleeping
[2018-07-10 23:08] VITALS: BP 110/64; PULSE 56; RESP 16; TEMP 36.3; O2SAT 100
--- NOTE | 2018-07-11 00:50 | PC.NURSE ---
Pt is aware of the plan of care. Pt going to go to [facility] for secure detox involuntarily. Pt can't arrive until 0700. Called for transport,[facility] unable to come until 0845. [facility] aware of transporation delay and ok with pt arriving later in the day.
--- NOTE | 2018-07-11 01:22 | PC.NURSE ---
Pt resting with eyes closed, No distress noted. Chest rising/falling.
--- NOTE | 2018-07-11 02:05 | PC.NURSE ---
Pt showing no distress,pt resting iwth eyes closed. chest rising/falling
[2018-07-11 02:50] VITALS: BP 115/64; PULSE 96; RESP 15; TEMP 36.7; O2SAT 96
[2018-07-11 07:10] VITALS: BP 121/71; PULSE 95; RESP 15; TEMP 36.7; O2SAT 96
--- NOTE | 2018-07-11 08:05 | PC.NURSE ---
Pt woke up to eat breakfast, and requested Tylenol from his nurse.
[2018-07-11] MEDS: ACETAMINOPHEN 325 MG TABLET 650 MG PO (08:14)
--- NOTE | 2018-07-11 08:22 | PC.NURSE ---
Pt inquired which facility he will be going to and when. Pt's also called and spoke to the nurse. Pt requested his comes to visit.
--- NOTE | 2018-07-11 08:28 | PC.NURSE ---
Pt's came to visit. She removed her sweater and emptied her pockets prior to entering pt's room, and is sitting on the pt's bed with pt.
[2018-07-11 08:36] VITALS: BP 127/86; PULSE 60; RESP 16; TEMP 36.6; O2SAT 95
--- NOTE | 2018-07-11 08:38 | PC.NURSE ---
Took pt's vital signs, and gave pt additional water at his request. Pt's is still in the room, calmly talking with patient.
--- NOTE | 2018-07-11 08:59 | PC.NURSE ---
Pt and his are laying on the bed, calmly talking. Pt's transport arrived.
--- NOTE | 2018-07-11 09:14 | PC.NURSE ---
Pt attempted to use the restroom before transport, but was unable.
--- NOTE | 2018-07-11 09:30 | PC.NURSE ---
Pt was cooperative with transport, and transferred himself onto the stretcher and was restrained without incident. Pt left ED with transport at 0930.
== END 2018-07-11 09:30 | disposition home or self-care (01) ==
PROVIDERS: Emergency Medicine; Emergency Provider Emergency Medicine; Family Provider Family Medicine; PCP Family Medicine
DX: F10.20 Alcohol dependence, uncomplicated (principal)
CPT/HCPCS: 36415; 80053; 80305; 80320; 80329; 84443; 85025; 99285; G0480

== ENCOUNTER 2018-08-31 17:03 | Inpatient (IN) | payer OTHER, MEDICAID, SELFPAY ==
[2018-04-02 20:44] VITALS: BMI 23.2
[2018-04-02 22:26] VITALS: PULSE 96; RESP 14; O2SAT 96
[2018-08-31] VITALS (19 sets, daily range): BP systolic 85–119; BP diastolic 45–90; PULSE 56–71; RESP 15–38; TEMP 36.2–36.6; O2SAT 99–100; BMI 22.4
--- NOTE | 2018-08-31 17:12 | DI.RAD.S_ITS ---
PROCEDURE: XR CHEST 1V INDICATIONS: intubated TECHNIQUE: One view of the chest was acquired. COMPARISON: None. FINDINGS: Surgical changes and devices: Endotracheal tube appears slightly high in positioning with the tip at the superior margin of the medial clavicular heads. It could be advanced approximately 1.5 cm if desired. Lungs and pleura: Lungs are difficult to accurately assess due to some form of tubing over the left chest. A pneumonia is not found, a pneumothorax is not seen.. No pleural effusions or pneumothorax. Mediastinum: Mediastinal contours appear normal. Heart size is normal. Bones and chest wall: No suspicious bony lesions. Overlying soft tissues appear unremarkable. IMPRESSION: No definite acute disease. Endotracheal tube could be advanced approximately 1.5 cm. Tubing and probable breathing devices overlie the left lateral and upper chest. Dictated by: Josse Grubbs M.D. on 08/31/2018 at 17:41 Approved by: Josse Grubbs M.D. on 08/31/2018 at 17:42
--- NOTE | 2018-08-31 17:12 | ED.AMS ---
HPI - Altered Mental Status <Valeria Perez MD - Last Filed: 09/02/18 14:46> General Chief Complaint: Unresponsive Stated Complaint: Unresponsive Time Seen by Provider: 08/31/18 17:11 Source: EMS Mode of arrival: ambulatory History of Present Illness HPI narrative: Patient is brought to the emergency department by EMS after being found to be unresponsive, laying next to a dumpster. 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 Medics gave the patient Narcan 2 mg with no response. Patient was intubated in the field. He was given succinylcholine after an induction agent for this. The patient is well known to the medics in this emergency department, and has been seen many times for alcohol intoxication. He has required intubation previously for severe alteration in mental status and respiratory depression from this. No other information is available this time. Medics did not note any trauma on the patient. Related Data Home Medications Medication Instructions Recorded Confirmed Unobtainable 03/19/18 09/01/18 Allergies Allergy/AdvReac Type Severity Reaction Status Date / Time shrimp [SHRIMP] Allergy Severe THROAT Verified 09/01/18 13:57 SWELLING/HIVES diazepam [From VALIUM] Allergy Intermediate LEG Verified 09/01/18 13:57 SWELLING haloperidol [From HALDOL] Allergy Unknown DYSTONIA Verified 09/01/18 13:57 naproxen [NAPROXEN] AdvReac Mild NAUSEA/GI Verified 09/01/18 13:57 DISTRESS Review of Systems <Valeria Perez MD - Last Filed: 09/02/18 14:46> Review of Systems ROS Unobtainable: Unobtainable due to mental condition Exam <Valeria Perez MD - Last Filed: 09/02/18 14:46> Initial Vital Signs Initial Vital Signs: Vital Signs Temperature 97.2 F L 08/31/18 17:10 Pulse Rate 69 08/31/18 17:10 Respiratory Rate 15 08/31/18 17:10 Blood Pressure 119/90 08/31/18 17:10 Pulse Oximetry 100 08/31/18 17:10 Const General: cooperative and well developed Nutritional Appearance: well nourished Orientation: obtunded Other: Patient is unconscious and intubated. He is unresponsive. [facility] Head: normocephalic and atraumatic Ears: external ears normal Nose: external nose normal and No nasal discharge Face and sinus: No dry mucous membranes Mouth: oral mucosae normal and moist mucous membranes Teeth and gingiva: dentition normal Eyes General: appearance normal, both eyes and all related structures Eyelids: eyelids normal Conjunctivae: conjunctivae normal Sclera: sclerae normal Pupils: PERRL Other: Patient has excessive tearing bilaterally. Neck Neck: normal visual inspection, trachea midline, No lymphadenopathy, No midline deformity and No JVD Lymphatic: No lymphedema Chest Chest: normal inspection of the chest Resp Auscultation: clear to auscultation bilaterally, no rales, no rhonchi and no wheezes Other: Patient makes intermittent, mild effort against the ventilator. He does not have regular respiratory effort. Cardio Rate: regular rate Rhythm: regular rhythm Heart Sounds: no click, no gallops, no murmurs and no rubs Pulses: normal peripheral pulses GI Inspection: non-distended Palpation: soft, no hepatosplenomegaly, No guarding, No pulsatile mass and No tender Auscultation: normal bowel sounds Back/Spine/Pelvis Back: No CVA tenderness Cervical Spine: cervical ROM normal and No pain with cervical ROM Thoracic/Lumbar Spine: thoracic and lumbar spine normal to inspection Skin General: no rashes or lesions noted, No jaundice and No petechiae Neuro Other: Patient is unresponsive. Extrem General: full ROM, no clubbing, cyanosis or edema, no pedal edema and no calf tenderness Psych Appearance: well kempt Mental Status: mental status grossly normal Attitude: cooperative Thought Content: normal and suicidality Judgment: judgment good <David Geronimo DO - Last Filed: 08/31/18 19:50> Initial Vital Signs Initial Vital Signs: Vital Signs Temperature 97.2 F L 08/31/18 17:10 Pulse Rate 69 08/31/18 17:10 Respiratory Rate 15 08/31/18 17:10 Blood Pressure 119/90 08/31/18 17:10 Pulse Oximetry 100 08/31/18 17:10 Course <Valeria Perez MD - Last Filed: 09/02/18 14:46> Course Narrative: Patient was evaluated by myself immediately upon arrival in the emergency department. He was found to have good placement of the tube on x-ray series. The patient was worked up with labs and urinalysis/urine drug screen. He was placed on the ventilator and kept intubated, as he was not making regular spontaneous respiratory effort. The patient was signed out to Dr. Geronimo at change of shift at 6:00 p.m., pending results of workup and clinical improvement. Orders Ordered: Discontinued Medications Sodium Chloride (Normal Saline 0.9%) 1,000 mls @ 1,000 mls/hr IV BOLUS ONE Stop: 08/31/18 18:11 Last Infusion: 08/31/18 18:14 Dose: 0 mls/hr Admin: 08/31/18 17:28 Dose: 1,000 mls/hr Magnesium Sulfate 2 gm/ Folic Acid 1 mg/ Thiamine HCl 100 mg / Multivitamins 10 ml/ Sodium Chloride 1,015.2 mls @ 125 mls/hr IV NOW ONE Stop: 09/01/18 04:36 Last Infusion: 09/01/18 01:35 Dose: 0 mls/hr Admin: 08/31/18 21:49 Dose: 125 mls/hr Dextrose (Dextrose 5% Water) 1,000 mls @ 100 mls/hr IV CONT HOLGER Potassium Chloride 40 meq/ (Sodium Chloride) 520 mls @ 130 mls/hr IV NOW ONE Stop: 09/01/18 05:18 Ondansetron HCl (Zofran) 4 mg IV NOW ONE Stop: 08/31/18 20:40 Last Admin: 08/31/18 21:49 Dose: 4 mg Potassium Chloride (Klor-Con M20) 40 meq PO NOW ONE Stop: 09/01/18 01:46 Last Admin: 09/01/18 01:45 Dose: 40 meq Potassium Chloride (Klor-Con M20) 40 meq PO NOW ONE Stop: 09/01/18 02:00 Last Admin: 09/01/18 01:50 Dose: 40 meq Vital Signs - 8 hr 08/31/18 17:10 08/31/18 18:14 08/31/18 18:20 Temperature 97.2 F L Pulse Rate 69 71 59 L Respiratory Rate 15 15 15 Blood Pressure 119/90 Blood Pressure [Right Arm] 105/68 106/52 L Pulse Oximetry 100 100 100 08/31/18 18:40 08/31/18 19:00 08/31/18 19:20 Temperature Pulse Rate 61 60 58 L Respiratory Rate 15 15 15 Blood Pressure Blood Pressure [Right Arm] 100/64 100/67 90/55 L Pulse Oximetry 100 100 100 08/31/18 19:40 Temperature Pulse Rate 62 Respiratory Rate 15 Blood Pressure Blood Pressure [Right Arm] 103/69 Pulse Oximetry 100 <David Geronimo DO - Last Filed: 08/31/18 19:50> Orders Ordered: Discontinued Medications Sodium Chloride (Normal Saline 0.9%) 1,000 mls @ 1,000 mls/hr IV BOLUS ONE Stop: 08/31/18 18:11 Last Infusion: 08/31/18 18:14 Dose: 0 mls/hr Admin: 08/31/18 17:28 Dose: 1,000 mls/hr Magnesium Sulfate 2 gm/ Folic Acid 1 mg/ Thiamine HCl 100 mg / Multivitamins 10 ml/ Sodium Chloride 1,015.2 mls @ 125 mls/hr IV NOW ONE Stop: 09/01/18 04:36 Last Infusion: 09/01/18 01:35 Dose: 0 mls/hr Admin: 08/31/18 21:49 Dose: 125 mls/hr Dextrose (Dextrose 5% Water) 1,000 mls @ 100 mls/hr IV CONT HOLGER Potassium Chloride 40 meq/ (Sodium Chloride) 520 mls @ 130 mls/hr IV NOW ONE Stop: 09/01/18 05:18 Ondansetron HCl (Zofran) 4 mg IV NOW ONE Stop: 08/31/18 20:40 Last Admin: 08/31/18 21:49 Dose: 4 mg Potassium Chloride (Klor-Con M20) 40 meq PO NOW ONE Stop: 09/01/18 01:46 Last Admin: 09/01/18 01:45 Dose: 40 meq Potassium Chloride (Klor-Con M20) 40 meq PO NOW ONE Stop: 09/01/18 02:00 Last Admin: 09/01/18 01:50 Dose: 40 meq Vital Signs - 8 hr 08/31/18 17:10 08/31/18 18:14 08/31/18 18:20 Temperature 97.2 F L Pulse Rate 69 71 59 L Respiratory Rate 15 15 15 Blood Pressure 119/90 Blood Pressure [Right Arm] 105/68 106/52 L Pulse Oximetry 100 100 100 08/31/18 18:40 08/31/18 19:00 08/31/18 19:20 Temperature Pulse Rate 61 60 58 L Respiratory Rate 15 15 15 Blood Pressure Blood Pressure [Right Arm] 100/64 100/67 90/55 L Pulse Oximetry 100 100 100 08/31/18 19:40 Temperature Pulse Rate 62 Respiratory Rate 15 Blood Pressure Blood Pressure [Right Arm] 103/69 Pulse Oximetry 100 MDM - Altered Mental Status <Valeria Perez MD - Last Filed: 09/02/18 14:46> Lab Data Result diagrams: 08/31/18 17:08 09/01/18 00:25 Lab Results 08/31/18 08/31/18 08/31/18 Range/Units 17:08 17:08 17:29 WBC 6.0 (4.5-11.0) X10^3/uL RBC 4.40 L (4.5-5.9) X10^6/uL Hgb 13.8 (13.5-17.5) g/dL Hct 39.8 L (41-53) % MCV 90.6 (80-100) fL MCH 31.4 (26-34) PG MCHC 34.6 (30-36) % RDW 12.9 (11.6-14.8) % Plt Count 128 L (150-400) X10^3/uL Neut % (Auto) 46.1 L (50-75) % Lymph % (Auto) 46.0 H (25-40) % [place] % (Auto) 6.6 (3-14) % Eos % (Auto) 0.4 L (2-4) % Baso % (Auto) 0.9 (0-2) % Neut # (Auto) 2700 (5231-5819) /uL Lymph # (Auto) 2700 (0387-4468) /uL [place] # (Auto) 400 (0-900) /uL Eos # (Auto) 0 (0-450) /uL Baso # (Auto) 100 (0-100) /uL ABG pH 7.37 (7.35-7.45) ABG pCO2 42.3 (35-45) mmHg ABG pO2 229 H (80-100) mmHg ABG HCO3 24 (22-26) mmol/L ABG Total CO2 26 (21-31) mmol/L ABG O2 Saturation 100 (95-100) % ABG Base Excess -1.0 (-2-2) mmol/L FiO2 100 Sodium 146 H (137-145) mmol/L Potassium 3.4 (3.4-5.1) mmol/L Chloride 104 (98-107) mmol/L Carbon Dioxide 30 (22-32) mmol/L BUN 8 L (9-20) mg/dL Creatinine 0.70 (0.66-1.25) mg/dL Estimated GFR > 60.0 (>60) mL/min BUN/Creatinine Ratio 11.4 (6-22) Glucose 89 (70-100) mg/dL Calcium 8.5 (8.4-10.2) mg/dL Magnesium (1.6-2.3) mg/dL Total Bilirubin 0.4 (0.2-1.3) mg/dL AST 35 (17-59) IU/L ALT 33 (21-72) IU/L Alkaline Phosphatase 38 (38-126) U/L Total Protein 6.4 (6.3-8.2) g/dL Albumin 3.8 (3.5-5.0) g/dL Globulin 2.6 (1.7-4.1) g/dL Albumin/Globulin Ratio 1.5 (1.0-2.8) Urine Color Urine Appearance Urine pH (4.5-8.0) Ur Specific [place] (1.000-1.035) Urine Protein (Negative) Urine Glucose (UA) (Negative) g/dL Urine Ketones (NEGATIVE) Urine Occult Blood (Negative) Urine Nitrate (Negative) Urine Bilirubin (NEGATIVE) Urine Urobilinogen (0.2) E.U./dL Ur Leukocyte Esterase (NEGATIVE) Urine RBC (0-5/HPF) Urine WBC (0-5/HPF) Ur Squamous Epith Cells (0-5/HPF) Urine Bacteria (None) Ur Culture Indicated? Nasal Screen MRSA (PCR) (Negative) Urine Opiates Screen (Negative) Ur Oxycodone Screen (Negative) Urine Methadone Screen (Negative) Ur Barbiturates Screen (Negative) U Tricyclic Antidepress (Negative) Ur Phencyclidine Scrn (Negative) Ur Amphetamines Screen (Negative) U Methamphetamines Scrn (Negative) Ur MDMA Scrn (Ecstasy) (Negative) U Benzodiazepines Scrn (Negative) Urine Cocaine Screen (Negative) U Marijuana (THC) Screen (Negative) Ethyl Alcohol 331 mg/dL Ketones (<0.27) mmol/L 08/31/18 08/31/18 08/31/18 Range/Units 17:40 17:40 19:00 WBC (4.5-11.0) X10^3/uL RBC (4.5-5.9) X10^6/uL Hgb (13.5-17.5) g/dL Hct (41-53) % MCV (80-100) fL MCH (26-34) PG MCHC (30-36) % RDW (11.6-14.8) % Plt Count (150-400) X10^3/uL Neut % (Auto) (50-75) % Lymph % (Auto) (25-40) % [place] % (Auto) (3-14) % Eos % (Auto) (2-4) % Baso % (Auto) (0-2) % Neut # (Auto) (6869-2520) /uL Lymph # (Auto) (5718-9709) /uL [place] # (Auto) (0-900) /uL Eos # (Auto) (0-450) /uL Baso # (Auto) (0-100) /uL ABG pH (7.35-7.45) ABG pCO2 (35-45) mmHg ABG pO2 (80-100) mmHg ABG HCO3 (22-26) mmol/L ABG Total CO2 (21-31) mmol/L ABG O2 Saturation (95-100) % ABG Base Excess (-2-2) mmol/L FiO2 Sodium (137-145) mmol/L Potassium (3.4-5.1) mmol/L Chloride (98-107) mmol/L Carbon Dioxide (22-32) mmol/L BUN (9-20) mg/dL Creatinine (0.66-1.25) mg/dL Estimated GFR (>60) mL/min BUN/Creatinine Ratio (6-22) Glucose (70-100) mg/dL Calcium (8.4-10.2) mg/dL Magnesium (1.6-2.3) mg/dL Total Bilirubin (0.2-1.3) mg/dL AST (17-59) IU/L ALT (21-72) IU/L Alkaline Phosphatase (38-126) U/L Total Protein (6.3-8.2) g/dL Albumin (3.5-5.0) g/dL Globulin (1.7-4.1) g/dL Albumin/Globulin Ratio (1.0-2.8) Urine Color Yellow Urine Appearance Clear Urine pH 7.5 (4.5-8.0) Ur Specific [place] 1.010 (1.000-1.035) Urine Protein Negative (Negative) Urine Glucose (UA) Negative (Negative) g/dL Urine Ketones Negative (NEGATIVE) Urine Occult Blood Negative (Negative) Urine Nitrate Negative (Negative) Urine Bilirubin Negative (NEGATIVE) Urine Urobilinogen 0.2 (0.2) E.U./dL Ur Leukocyte Esterase Negative (NEGATIVE) Urine RBC None seen (0-5/HPF) Urine WBC None seen (0-5/HPF) Ur Squamous Epith Cells 0-1 /hpf (0-5/HPF) Urine Bacteria None seen (None) Ur Culture Indicated? Cult not indicated Nasal Screen MRSA (PCR) (Negative) Urine Opiates Screen Negative (Negative) Ur Oxycodone Screen Negative (Negative) Urine Methadone Screen Negative (Negative) Ur Barbiturates Screen Negative (Negative) U Tricyclic Antidepress Negative (Negative) Ur Phencyclidine Scrn Negative (Negative) Ur Amphetamines Screen Negative (Negative) U Methamphetamines Scrn Negative (Negative) Ur MDMA Scrn (Ecstasy) Negative (Negative) U Benzodiazepines Scrn Negative (Negative) Urine Cocaine Screen Negative (Negative) U Marijuana (THC) Screen Positive H (Negative) Ethyl Alcohol 287 mg/dL Ketones 0.09 (<0.27) mmol/L 08/31/18 09/01/18 Range/Units 21:00 00:25 WBC (4.5-11.0) X10^3/uL RBC (4.5-5.9) X10^6/uL Hgb (13.5-17.5) g/dL Hct (41-53) % MCV (80-100) fL MCH (26-34) PG MCHC (30-36) % RDW (11.6-14.8) % Plt Count (150-400) X10^3/uL Neut % (Auto) (50-75) % Lymph % (Auto) (25-40) % [place] % (Auto) (3-14) % Eos % (Auto) (2-4) % Baso % (Auto) (0-2) % Neut # (Auto) (4479-4882) /uL Lymph # (Auto) (2357-9464) /uL [place] # (Auto) (0-900) /uL Eos # (Auto) (0-450) /uL Baso # (Auto) (0-100) /uL ABG pH (7.35-7.45) ABG pCO2 (35-45) mmHg ABG pO2 (80-100) mmHg ABG HCO3 (22-26) mmol/L ABG Total CO2 (21-31) mmol/L ABG O2 Saturation (95-100) % ABG Base Excess (-2-2) mmol/L FiO2 Sodium 147 H (137-145) mmol/L Potassium 3.3 L (3.4-5.1) mmol/L Chloride 112 H (98-107) mmol/L Carbon Dioxide 28 (22-32) mmol/L BUN 6 L (9-20) mg/dL Creatinine 0.60 L (0.66-1.25) mg/dL Estimated GFR > 60.0 (>60) mL/min BUN/Creatinine Ratio 10.0 (6-22) Glucose 83 (70-100) mg/dL Calcium 8.0 L (8.4-10.2) mg/dL Magnesium 1.8 (1.6-2.3) mg/dL Total Bilirubin 0.3 (0.2-1.3) mg/dL AST 24 (17-59) IU/L ALT 35 (21-72) IU/L Alkaline Phosphatase 39 (38-126) U/L Total Protein 5.7 L (6.3-8.2) g/dL Albumin 3.2 L (3.5-5.0) g/dL Globulin 2.5 (1.7-4.1) g/dL Albumin/Globulin Ratio 1.3 (1.0-2.8) Urine Color Urine Appearance Urine pH (4.5-8.0) Ur Specific [place] (1.000-1.035) Urine Protein (Negative) Urine Glucose (UA) (Negative) g/dL Urine Ketones (NEGATIVE) Urine Occult Blood (Negative) Urine Nitrate (Negative) Urine Bilirubin (NEGATIVE) Urine Urobilinogen (0.2) E.U./dL Ur Leukocyte Esterase (NEGATIVE) Urine RBC (0-5/HPF) Urine WBC (0-5/HPF) Ur Squamous Epith Cells (0-5/HPF) Urine Bacteria (None) Ur Culture Indicated? Nasal Screen MRSA (PCR) Negative for mrsa (Negative) Urine Opiates Screen (Negative) Ur Oxycodone Screen (Negative) Urine Methadone Screen (Negative) Ur Barbiturates Screen (Negative) U Tricyclic Antidepress (Negative) Ur Phencyclidine Scrn (Negative) Ur Amphetamines Screen (Negative) U Methamphetamines Scrn (Negative) Ur MDMA Scrn (Ecstasy) (Negative) U Benzodiazepines Scrn (Negative) Urine Cocaine Screen (Negative) U Marijuana (THC) Screen (Negative) Ethyl Alcohol mg/dL Ketones (<0.27) mmol/L Point of Care Testing Glucose POC 82 <David Geronimo, DO - Last Filed: 08/31/18 19:50> Lab Data Attestation: I reviewed the patient's lab results. Lab Results 08/31/18 08/31/18 08/31/18 Range/Units 17:08 17:08 17:29 WBC 6.0 (4.5-11.0) X10^3/uL RBC 4.40 L (4.5-5.9) X10^6/uL Hgb 13.8 (13.5-17.5) g/dL Hct 39.8 L (41-53) % MCV 90.6 (80-100) fL MCH 31.4 (26-34) PG MCHC 34.6 (30-36) % RDW 12.9 (11.6-14.8) % Plt Count 128 L (150-400) X10^3/uL Neut % (Auto) 46.1 L (50-75) % Lymph % (Auto) 46.0 H (25-40) % [place] % (Auto) 6.6 (3-14) % Eos % (Auto) 0.4 L (2-4) % Baso % (Auto) 0.9 (0-2) % Neut # (Auto) 2700 (9871-5758) /uL Lymph # (Auto) 2700 (6421-9952) /uL [place] # (Auto) 400 (0-900) /uL Eos # (Auto) 0 (0-450) /uL Baso # (Auto) 100 (0-100) /uL ABG pH 7.37 (7.35-7.45) ABG pCO2 42.3 (35-45) mmHg ABG pO2 229 H (80-100) mmHg ABG HCO3 24 (22-26) mmol/L ABG Total CO2 26 (21-31) mmol/L ABG O2 Saturation 100 (95-100) % ABG Base Excess -1.0 (-2-2) mmol/L FiO2 100 Sodium 146 H (137-145) mmol/L Potassium 3.4 (3.4-5.1) mmol/L Chloride 104 (98-107) mmol/L Carbon Dioxide 30 (22-32) mmol/L BUN 8 L (9-20) mg/dL Creatinine 0.70 (0.66-1.25) mg/dL Estimated GFR > 60.0 (>60) mL/min BUN/Creatinine Ratio 11.4 (6-22) Glucose 89 (70-100) mg/dL Calcium 8.5 (8.4-10.2) mg/dL Magnesium (1.6-2.3) mg/dL Total Bilirubin 0.4 (0.2-1.3) mg/dL AST 35 (17-59) IU/L ALT 33 (21-72) IU/L Alkaline Phosphatase 38 (38-126) U/L Total Protein 6.4 (6.3-8.2) g/dL Albumin 3.8 (3.5-5.0) g/dL Globulin 2.6 (1.7-4.1) g/dL Albumin/Globulin Ratio 1.5 (1.0-2.8) Urine Color Urine Appearance Urine pH (4.5-8.0) Ur Specific [place] (1.000-1.035) Urine Protein (Negative) Urine Glucose (UA) (Negative) g/dL Urine Ketones (NEGATIVE) Urine Occult Blood (Negative) Urine Nitrate (Negative) Urine Bilirubin (NEGATIVE) Urine Urobilinogen (0.2) E.U./dL Ur Leukocyte Esterase (NEGATIVE) Urine RBC (0-5/HPF) Urine WBC (0-5/HPF) Ur Squamous Epith Cells (0-5/HPF) Urine Bacteria (None) Ur Culture Indicated? Nasal Screen MRSA (PCR) (Negative) Urine Opiates Screen (Negative) Ur Oxycodone Screen (Negative) Urine Methadone Screen (Negative) Ur Barbiturates Screen (Negative) U Tricyclic Antidepress (Negative) Ur Phencyclidine Scrn (Negative) Ur Amphetamines Screen (Negative) U Methamphetamines Scrn (Negative) Ur MDMA Scrn (Ecstasy) (Negative) U Benzodiazepines Scrn (Negative) Urine Cocaine Screen (Negative) U Marijuana (THC) Screen (Negative) Ethyl Alcohol 331 mg/dL Ketones (<0.27) mmol/L 08/31/18 08/31/18 08/31/18 Range/Units 17:40 17:40 19:00 WBC (4.5-11.0) X10^3/uL RBC (4.5-5.9) X10^6/uL Hgb (13.5-17.5) g/dL Hct (41-53) % MCV (80-100) fL MCH (26-34) PG MCHC (30-36) % RDW (11.6-14.8) % Plt Count (150-400) X10^3/uL Neut % (Auto) (50-75) % Lymph % (Auto) (25-40) % [place] % (Auto) (3-14) % Eos % (Auto) (2-4) % Baso % (Auto) (0-2) % Neut # (Auto) (7442-6064) /uL Lymph # (Auto) (7162-9591) /uL [place] # (Auto) (0-900) /uL Eos # (Auto) (0-450) /uL Baso # (Auto) (0-100) /uL ABG pH (7.35-7.45) ABG pCO2 (35-45) mmHg ABG pO2 (80-100) mmHg ABG HCO3 (22-26) mmol/L ABG Total CO2 (21-31) mmol/L ABG O2 Saturation (95-100) % ABG Base Excess (-2-2) mmol/L FiO2 Sodium (137-145) mmol/L Potassium (3.4-5.1) mmol/L Chloride (98-107) mmol/L Carbon Dioxide (22-32) mmol/L BUN (9-20) mg/dL Creatinine (0.66-1.25) mg/dL Estimated GFR (>60) mL/min BUN/Creatinine Ratio (6-22) Glucose (70-100) mg/dL Calcium (8.4-10.2) mg/dL Magnesium (1.6-2.3) mg/dL Total Bilirubin (0.2-1.3) mg/dL AST (17-59) IU/L ALT (21-72) IU/L Alkaline Phosphatase (38-126) U/L Total Protein (6.3-8.2) g/dL Albumin (3.5-5.0) g/dL Globulin (1.7-4.1) g/dL Albumin/Globulin Ratio (1.0-2.8) Urine Color Yellow Urine Appearance Clear Urine pH 7.5 (4.5-8.0) Ur Specific [place] 1.010 (1.000-1.035) Urine Protein Negative (Negative) Urine Glucose (UA) Negative (Negative) g/dL Urine Ketones Negative (NEGATIVE) Urine Occult Blood Negative (Negative) Urine Nitrate Negative (Negative) Urine Bilirubin Negative (NEGATIVE) Urine Urobilinogen 0.2 (0.2) E.U./dL Ur Leukocyte Esterase Negative (NEGATIVE) Urine RBC None seen (0-5/HPF) Urine WBC None seen (0-5/HPF) Ur Squamous Epith Cells 0-1 /hpf (0-5/HPF) Urine Bacteria None seen (None) Ur Culture Indicated? Cult not indicated Nasal Screen MRSA (PCR) (Negative) Urine Opiates Screen Negative (Negative) Ur Oxycodone Screen Negative (Negative) Urine Methadone Screen Negative (Negative) Ur Barbiturates Screen Negative (Negative) U Tricyclic Antidepress Negative (Negative) Ur Phencyclidine Scrn Negative (Negative) Ur Amphetamines Screen Negative (Negative) U Methamphetamines Scrn Negative (Negative) Ur MDMA Scrn (Ecstasy) Negative (Negative) U Benzodiazepines Scrn Negative (Negative) Urine Cocaine Screen Negative (Negative) U Marijuana (THC) Screen Positive H (Negative) Ethyl Alcohol 287 mg/dL Ketones 0.09 (<0.27) mmol/L 08/31/18 09/01/18 Range/Units 21:00 00:25 WBC (4.5-11.0) X10^3/uL RBC (4.5-5.9) X10^6/uL Hgb (13.5-17.5) g/dL Hct (41-53) % MCV (80-100) fL MCH (26-34) PG MCHC (30-36) % RDW (11.6-14.8) % Plt Count (150-400) X10^3/uL Neut % (Auto) (50-75) % Lymph % (Auto) (25-40) % [place] % (Auto) (3-14) % Eos % (Auto) (2-4) % Baso % (Auto) (0-2) % Neut # (Auto) (0468-7830) /uL Lymph # (Auto) (0837-4888) /uL [place] # (Auto) (0-900) /uL Eos # (Auto) (0-450) /uL Baso # (Auto) (0-100) /uL ABG pH (7.35-7.45) ABG pCO2 (35-45) mmHg ABG pO2 (80-100) mmHg ABG HCO3 (22-26) mmol/L ABG Total CO2 (21-31) mmol/L ABG O2 Saturation (95-100) % ABG Base Excess (-2-2) mmol/L FiO2 Sodium 147 H (137-145) mmol/L Potassium 3.3 L (3.4-5.1) mmol/L Chloride 112 H (98-107) mmol/L Carbon Dioxide 28 (22-32) mmol/L BUN 6 L (9-20) mg/dL Creatinine 0.60 L (0.66-1.25) mg/dL Estimated GFR > 60.0 (>60) mL/min BUN/Creatinine Ratio 10.0 (6-22) Glucose 83 (70-100) mg/dL Calcium 8.0 L (8.4-10.2) mg/dL Magnesium 1.8 (1.6-2.3) mg/dL Total Bilirubin 0.3 (0.2-1.3) mg/dL AST 24 (17-59) IU/L ALT 35 (21-72) IU/L Alkaline Phosphatase 39 (38-126) U/L Total Protein 5.7 L (6.3-8.2) g/dL Albumin 3.2 L (3.5-5.0) g/dL Globulin 2.5 (1.7-4.1) g/dL Albumin/Globulin Ratio 1.3 (1.0-2.8) Urine Color Urine Appearance Urine pH (4.5-8.0) Ur Specific [place] (1.000-1.035) Urine Protein (Negative) Urine Glucose (UA) (Negative) g/dL Urine Ketones (NEGATIVE) Urine Occult Blood (Negative) Urine Nitrate (Negative) Urine Bilirubin (NEGATIVE) Urine Urobilinogen (0.2) E.U./dL Ur Leukocyte Esterase (NEGATIVE) Urine RBC (0-5/HPF) Urine WBC (0-5/HPF) Ur Squamous Epith Cells (0-5/HPF) Urine Bacteria (None) Ur Culture Indicated? Nasal Screen MRSA (PCR) Negative for mrsa (Negative) Urine Opiates Screen (Negative) Ur Oxycodone Screen (Negative) Urine Methadone Screen (Negative) Ur Barbiturates Screen (Negative) U Tricyclic Antidepress (Negative) Ur Phencyclidine Scrn (Negative) Ur Amphetamines Screen (Negative) U Methamphetamines Scrn (Negative) Ur MDMA Scrn (Ecstasy) (Negative) U Benzodiazepines Scrn (Negative) Urine Cocaine Screen (Negative) U Marijuana (THC) Screen (Negative) Ethyl Alcohol mg/dL Ketones (<0.27) mmol/L Point of Care Testing Glucose POC 82 MDM Narrative Medical decision making narrative: Dr Geronimo : Received turnover from day provider. Reviewed patient's note. Perform my own history and physical exam. Patient's alcohol level was elevated. He is well known to myself in this emergency department. 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 Unsure as to whether not he ingested any of this substance. He has an anion gap of 12. PH is 7.368. Patient was observed here in the emergency department for another hour and a half with the anticipation that as he metabolized his alcohol he could potentially be extubated. After this time he was becoming slightly more responsive however not to the point where I was comfortable extubating the patient. He has not been on sedation. Discussed the case with the night hospitalist. Will admit the patient for continued evaluation and treatment. The tube was advanced 1.5 cm prior to admission. Discharge Plan Departure Patient Disposition: Admitted As Inpatient Clinical Impression: Alcohol intoxication Qualifiers: Complication of substance-induced condition: with unspecified complication Qualified Code(s): F10.929 - Alcohol use, unspecified with intoxication, unspecified Discharge Date/Time: 08/31/18 21:00 Interventions: ED Discharge Assessment Last Done: 08/31/18 21:29 Referrals: Luigi Bains MD [Primary Care Provider] - Admit Date/Time: 08/31/18 19:53 Admit Provider: Monie Marin
[2018-08-31 17:20] LABS: Add Manual Diff / Slide Review NO; Basophils Absolute Auto 100 /uL (0-100); Basophils Percent Auto 0.9 % (0-2); Eosinophils Absolute Auto 0 /uL (0-450); Eosinophils Percent Auto 0.4 % (2-4); Hematocrit 39.8 % (41-53); Hemoglobin 13.8 g/dL (13.5-17.5); Lymphocytes Absolute Auto 2700 /uL (1100-4500); Mean Corpuscular HGB Conc 34.6 % (30-36); Mean Corpuscular Hemoglobin 31.4 PG (26-34); Mean Corpuscular Volume 90.6 fL (80-100); Monocytes Absolute Auto 400 /uL (0-900); Monocytes Percent Auto 6.6 % (3-14); Neutrophils Absolute Auto 2700 /uL (1500-7000); Neutrophils Percent Auto 46.1 % (50-75); Platelet Count 128 X10^3/uL (150-400); Red Cell Distribution Width 12.9 % (11.6-14.8)
--- NOTE | 2018-08-31 17:20 | ED_ITS ---
HPI - Altered Mental Status <Valeria Perez MD - Last Filed: 09/02/18 14:46> General Chief Complaint: Unresponsive Stated Complaint: Unresponsive Time Seen by Provider: 08/31/18 17:11 Source: EMS Mode of arrival: ambulatory History of Present Illness HPI narrative: Patient is brought to the emergency department by EMS after being found to be unresponsive, laying next to a dumpster. Patient had a bottle of hand application integrator next to him and had very shallow respirations with a slow rate. Medics gave the patient Narcan 2 mg with no response. Patient was intubated in the field. He was given succinylcholine after an induction agent for this. The patient is well known to the medics in this emergency department, and has been seen many times for alcohol intoxication. He has required intubation previously for severe alteration in mental status and respiratory depression from this. No other information is available this time. Medics did not note any trauma on the patient. Related Data Home Medications Medication Instructions Recorded Confirmed Unobtainable 03/19/18 09/01/18 Allergies Allergy/AdvReac Type Severity Reaction Status Date / Time shrimp [SHRIMP] Allergy Severe THROAT Verified 09/01/18 13:57 SWELLING/HIVES diazepam [From VALIUM] Allergy Intermediate LEG Verified 09/01/18 13:57 SWELLING haloperidol [From HALDOL] Allergy Unknown DYSTONIA Verified 09/01/18 13:57 naproxen [NAPROXEN] AdvReac Mild NAUSEA/GI Verified 09/01/18 13:57 DISTRESS Review of Systems <Valeria Perez MD - Last Filed: 09/02/18 14:46> Review of Systems ROS Unobtainable: Unobtainable due to mental condition Exam <Valeria Perez MD - Last Filed: 09/02/18 14:46> Initial Vital Signs Initial Vital Signs: Vital Signs Temperature 97.2 F L 08/31/18 17:10 Pulse Rate 69 08/31/18 17:10 Respiratory Rate 15 08/31/18 17:10 Blood Pressure 119/90 08/31/18 17:10 Pulse Oximetry 100 08/31/18 17:10 Const General: cooperative and well developed Nutritional Appearance: well nourished Orientation: obtunded Other: Patient is unconscious and intubated. He is unresponsive. [facility] Head: normocephalic and atraumatic Ears: external ears normal Nose: external nose normal and No nasal discharge Face and sinus: No dry mucous membranes Mouth: oral mucosae normal and moist mucous membranes Teeth and gingiva: dentition normal Eyes General: appearance normal, both eyes and all related structures Eyelids: eyelids normal Conjunctivae: conjunctivae normal Sclera: sclerae normal Pupils: PERRL Other: Patient has excessive tearing bilaterally. Neck Neck: normal visual inspection, trachea midline, No lymphadenopathy, No midline deformity and No JVD Lymphatic: No lymphedema Chest Chest: normal inspection of the chest Resp Auscultation: clear to auscultation bilaterally, no rales, no rhonchi and no wheezes Other: Patient makes intermittent, mild effort against the ventilator. He does not have regular respiratory effort. Cardio Rate: regular rate Rhythm: regular rhythm Heart Sounds: no click, no gallops, no murmurs and no rubs Pulses: normal peripheral pulses GI Inspection: non-distended Palpation: soft, no hepatosplenomegaly, No guarding, No pulsatile mass and No tender Auscultation: normal bowel sounds Back/Spine/Pelvis Back: No CVA tenderness Cervical Spine: cervical ROM normal and No pain with cervical ROM Thoracic/Lumbar Spine: thoracic and lumbar spine normal to inspection Skin General: no rashes or lesions noted, No jaundice and No petechiae Neuro Other: Patient is unresponsive. Extrem General: full ROM, no clubbing, cyanosis or edema, no pedal edema and no calf tenderness Psych Appearance: well kempt Mental Status: mental status grossly normal Attitude: cooperative Thought Content: normal and suicidality Judgment: judgment good <David Geronimo DO - Last Filed: 08/31/18 19:50> Initial Vital Signs Initial Vital Signs: Vital Signs Temperature 97.2 F L 08/31/18 17:10 Pulse Rate 69 08/31/18 17:10 Respiratory Rate 15 08/31/18 17:10 Blood Pressure 119/90 08/31/18 17:10 Pulse Oximetry 100 08/31/18 17:10 Course <Valeria Perez MD - Last Filed: 09/02/18 14:46> Course Narrative: Patient was evaluated by myself immediately upon arrival in the emergency department. He was found to have good placement of the tube on x-ray series. The patient was worked up with labs and urinalysis/urine drug screen. He was placed on the ventilator and kept intubated, as he was not making regular spontaneous respiratory effort. The patient was signed out to Dr. Geronimo at change of shift at 6:00 p.m., pending results of workup and clinical improvement. Orders Ordered: Discontinued Medications Sodium Chloride (Normal Saline 0.9%) 1,000 mls @ 1,000 mls/hr IV BOLUS ONE Stop: 08/31/18 18:11 Last Infusion: 08/31/18 18:14 Dose: 0 mls/hr Admin: 08/31/18 17:28 Dose: 1,000 mls/hr Magnesium Sulfate 2 gm/ Folic Acid 1 mg/ Thiamine HCl 100 mg / Multivitamins 10 ml/ Sodium Chloride 1,015.2 mls @ 125 mls/hr IV NOW ONE Stop: 09/01/18 04:36 Last Infusion: 09/01/18 01:35 Dose: 0 mls/hr Admin: 08/31/18 21:49 Dose: 125 mls/hr Dextrose (Dextrose 5% Water) 1,000 mls @ 100 mls/hr IV CONT HOLGER Potassium Chloride 40 meq/ (Sodium Chloride) 520 mls @ 130 mls/hr IV NOW ONE Stop: 09/01/18 05:18 Ondansetron HCl (Zofran) 4 mg IV NOW ONE Stop: 08/31/18 20:40 Last Admin: 08/31/18 21:49 Dose: 4 mg Potassium Chloride (Klor-Con M20) 40 meq PO NOW ONE Stop: 09/01/18 01:46 Last Admin: 09/01/18 01:45 Dose: 40 meq Potassium Chloride (Klor-Con M20) 40 meq PO NOW ONE Stop: 09/01/18 02:00 Last Admin: 09/01/18 01:50 Dose: 40 meq Vital Signs - 8 hr 08/31/18 17:10 08/31/18 18:14 08/31/18 18:20 Temperature 97.2 F L Pulse Rate 69 71 59 L Respiratory Rate 15 15 15 Blood Pressure 119/90 Blood Pressure [Right Arm] 105/68 106/52 L Pulse Oximetry 100 100 100 08/31/18 18:40 08/31/18 19:00 08/31/18 19:20 Temperature Pulse Rate 61 60 58 L Respiratory Rate 15 15 15 Blood Pressure Blood Pressure [Right Arm] 100/64 100/67 90/55 L Pulse Oximetry 100 100 100 08/31/18 19:40 Temperature Pulse Rate 62 Respiratory Rate 15 Blood Pressure Blood Pressure [Right Arm] 103/69 Pulse Oximetry 100 <David Geronimo DO - Last Filed: 08/31/18 19:50> Orders Ordered: Discontinued Medications Sodium Chloride (Normal Saline 0.9%) 1,000 mls @ 1,000 mls/hr IV BOLUS ONE Stop: 08/31/18 18:11 Last Infusion: 08/31/18 18:14 Dose: 0 mls/hr Admin: 08/31/18 17:28 Dose: 1,000 mls/hr Magnesium Sulfate 2 gm/ Folic Acid 1 mg/ Thiamine HCl 100 mg / Multivitamins 10 ml/ Sodium Chloride 1,015.2 mls @ 125 mls/hr IV NOW ONE Stop: 09/01/18 04:36 Last Infusion: 09/01/18 01:35 Dose: 0 mls/hr Admin: 08/31/18 21:49 Dose: 125 mls/hr Dextrose (Dextrose 5% Water) 1,000 mls @ 100 mls/hr IV CONT HOLGER Potassium Chloride 40 meq/ (Sodium Chloride) 520 mls @ 130 mls/hr IV NOW ONE Stop: 09/01/18 05:18 Ondansetron HCl (Zofran) 4 mg IV NOW ONE Stop: 08/31/18 20:40 Last Admin: 08/31/18 21:49 Dose: 4 mg Potassium Chloride (Klor-Con M20) 40 meq PO NOW ONE Stop: 09/01/18 01:46 Last Admin: 09/01/18 01:45 Dose: 40 meq Potassium Chloride (Klor-Con M20) 40 meq PO NOW ONE Stop: 09/01/18 02:00 Last Admin: 09/01/18 01:50 Dose: 40 meq Vital Signs - 8 hr 08/31/18 17:10 08/31/18 18:14 08/31/18 18:20 Temperature 97.2 F L Pulse Rate 69 71 59 L Respiratory Rate 15 15 15 Blood Pressure 119/90 Blood Pressure [Right Arm] 105/68 106/52 L Pulse Oximetry 100 100 100 08/31/18 18:40 08/31/18 19:00 08/31/18 19:20 Temperature Pulse Rate 61 60 58 L Respiratory Rate 15 15 15 Blood Pressure Blood Pressure [Right Arm] 100/64 100/67 90/55 L Pulse Oximetry 100 100 100 08/31/18 19:40 Temperature Pulse Rate 62 Respiratory Rate 15 Blood Pressure Blood Pressure [Right Arm] 103/69 Pulse Oximetry 100 MDM - Altered Mental Status <Valeria Perez MD - Last Filed: 09/02/18 14:46> Lab Data Result diagrams: 08/31/18 17:08 09/01/18 00:25 Lab Results 08/31/18 08/31/18 08/31/18 Range/Units 17:08 17:08 17:29 WBC 6.0 (4.5-11.0) X10^3/uL RBC 4.40 L (4.5-5.9) X10^6/uL Hgb 13.8 (13.5-17.5) g/dL Hct 39.8 L (41-53) % MCV 90.6 (80-100) fL MCH 31.4 (26-34) PG MCHC 34.6 (30-36) % RDW 12.9 (11.6-14.8) % Plt Count 128 L (150-400) X10^3/uL Neut % (Auto) 46.1 L (50-75) % Lymph % (Auto) 46.0 H (25-40) % Stephens % (Auto) 6.6 (3-14) % Eos % (Auto) 0.4 L (2-4) % Baso % (Auto) 0.9 (0-2) % Neut # (Auto) 2700 (7216-3701) /uL Lymph # (Auto) 2700 (2497-4314) /uL Stephens # (Auto) 400 (0-900) /uL Eos # (Auto) 0 (0-450) /uL Baso # (Auto) 100 (0-100) /uL ABG pH 7.37 (7.35-7.45) ABG pCO2 42.3 (35-45) mmHg ABG pO2 229 H (80-100) mmHg ABG HCO3 24 (22-26) mmol/L ABG Total CO2 26 (21-31) mmol/L ABG O2 Saturation 100 (95-100) % ABG Base Excess -1.0 (-2-2) mmol/L FiO2 100 Sodium 146 H (137-145) mmol/L Potassium 3.4 (3.4-5.1) mmol/L Chloride 104 (98-107) mmol/L Carbon Dioxide 30 (22-32) mmol/L BUN 8 L (9-20) mg/dL Creatinine 0.70 (0.66-1.25) mg/dL Estimated GFR > 60.0 (>60) mL/min BUN/Creatinine Ratio 11.4 (6-22) Glucose 89 (70-100) mg/dL Calcium 8.5 (8.4-10.2) mg/dL Magnesium (1.6-2.3) mg/dL Total Bilirubin 0.4 (0.2-1.3) mg/dL AST 35 (17-59) IU/L ALT 33 (21-72) IU/L Alkaline Phosphatase 38 (38-126) U/L Total Protein 6.4 (6.3-8.2) g/dL Albumin 3.8 (3.5-5.0) g/dL Globulin 2.6 (1.7-4.1) g/dL Albumin/Globulin Ratio 1.5 (1.0-2.8) Urine Color Urine Appearance Urine pH (4.5-8.0) Ur Specific [place] (1.000-1.035) Urine Protein (Negative) Urine Glucose (UA) (Negative) g/dL Urine Ketones (NEGATIVE) Urine Occult Blood (Negative) Urine Nitrate (Negative) Urine Bilirubin (NEGATIVE) Urine Urobilinogen (0.2) E.U./dL Ur Leukocyte Esterase (NEGATIVE) Urine RBC (0-5/HPF) Urine WBC (0-5/HPF) Ur Squamous Epith Cells (0-5/HPF) Urine Bacteria (None) Ur Culture Indicated? Nasal Screen MRSA (PCR) (Negative) Urine Opiates Screen (Negative) Ur Oxycodone Screen (Negative) Urine Methadone Screen (Negative) Ur Barbiturates Screen (Negative) U Tricyclic Antidepress (Negative) Ur Phencyclidine Scrn (Negative) Ur Amphetamines Screen (Negative) U Methamphetamines Scrn (Negative) Ur MDMA Scrn (Ecstasy) (Negative) U Benzodiazepines Scrn (Negative) Urine Cocaine Screen (Negative) U Marijuana (THC) Screen (Negative) Ethyl Alcohol 331 mg/dL Ketones (<0.27) mmol/L 08/31/18 08/31/18 08/31/18 Range/Units 17:40 17:40 19:00 WBC (4.5-11.0) X10^3/uL RBC (4.5-5.9) X10^6/uL Hgb (13.5-17.5) g/dL Hct (41-53) % MCV (80-100) fL MCH (26-34) PG MCHC (30-36) % RDW (11.6-14.8) % Plt Count (150-400) X10^3/uL Neut % (Auto) (50-75) % Lymph % (Auto) (25-40) % Stephens % (Auto) (3-14) % Eos % (Auto) (2-4) % Baso % (Auto) (0-2) % Neut # (Auto) (2862-8133) /uL Lymph # (Auto) (0343-5876) /uL Stephens # (Auto) (0-900) /uL Eos # (Auto) (0-450) /uL Baso # (Auto) (0-100) /uL ABG pH (7.35-7.45) ABG pCO2 (35-45) mmHg ABG pO2 (80-100) mmHg ABG HCO3 (22-26) mmol/L ABG Total CO2 (21-31) mmol/L ABG O2 Saturation (95-100) % ABG Base Excess (-2-2) mmol/L FiO2 Sodium (137-145) mmol/L Potassium (3.4-5.1) mmol/L Chloride (98-107) mmol/L Carbon Dioxide (22-32) mmol/L BUN (9-20) mg/dL Creatinine (0.66-1.25) mg/dL Estimated GFR (>60) mL/min BUN/Creatinine Ratio (6-22) Glucose (70-100) mg/dL Calcium (8.4-10.2) mg/dL Magnesium (1.6-2.3) mg/dL Total Bilirubin (0.2-1.3) mg/dL AST (17-59) IU/L ALT (21-72) IU/L Alkaline Phosphatase (38-126) U/L Total Protein (6.3-8.2) g/dL Albumin (3.5-5.0) g/dL Globulin (1.7-4.1) g/dL Albumin/Globulin Ratio (1.0-2.8) Urine Color Yellow Urine Appearance Clear Urine pH 7.5 (4.5-8.0) Ur Specific [place] 1.010 (1.000-1.035) Urine Protein Negative (Negative) Urine Glucose (UA) Negative (Negative) g/dL Urine Ketones Negative (NEGATIVE) Urine Occult Blood Negative (Negative) Urine Nitrate Negative (Negative) Urine Bilirubin Negative (NEGATIVE) Urine Urobilinogen 0.2 (0.2) E.U./dL Ur Leukocyte Esterase Negative (NEGATIVE) Urine RBC None seen (0-5/HPF) Urine WBC None seen (0-5/HPF) Ur Squamous Epith Cells 0-1 /hpf (0-5/HPF) Urine Bacteria None seen (None) Ur Culture Indicated? Cult not indicated Nasal Screen MRSA (PCR) (Negative) Urine Opiates Screen Negative (Negative) Ur Oxycodone Screen Negative (Negative) Urine Methadone Screen Negative (Negative) Ur Barbiturates Screen Negative (Negative) U Tricyclic Antidepress Negative (Negative) Ur Phencyclidine Scrn Negative (Negative) Ur Amphetamines Screen Negative (Negative) U Methamphetamines Scrn Negative (Negative) Ur MDMA Scrn (Ecstasy) Negative (Negative) U Benzodiazepines Scrn Negative (Negative) Urine Cocaine Screen Negative (Negative) U Marijuana (THC) Screen Positive H (Negative) Ethyl Alcohol 287 mg/dL Ketones 0.09 (<0.27) mmol/L 08/31/18 09/01/18 Range/Units 21:00 00:25 WBC (4.5-11.0) X10^3/uL RBC (4.5-5.9) X10^6/uL Hgb (13.5-17.5) g/dL Hct (41-53) % MCV (80-100) fL MCH (26-34) PG MCHC (30-36) % RDW (11.6-14.8) % Plt Count (150-400) X10^3/uL Neut % (Auto) (50-75) % Lymph % (Auto) (25-40) % Stephens % (Auto) (3-14) % Eos % (Auto) (2-4) % Baso % (Auto) (0-2) % Neut # (Auto) (6770-3922) /uL Lymph # (Auto) (0118-9262) /uL Stephens # (Auto) (0-900) /uL Eos # (Auto) (0-450) /uL Baso # (Auto) (0-100) /uL ABG pH (7.35-7.45) ABG pCO2 (35-45) mmHg ABG pO2 (80-100) mmHg ABG HCO3 (22-26) mmol/L ABG Total CO2 (21-31) mmol/L ABG O2 Saturation (95-100) % ABG Base Excess (-2-2) mmol/L FiO2 Sodium 147 H (137-145) mmol/L Potassium 3.3 L (3.4-5.1) mmol/L Chloride 112 H (98-107) mmol/L Carbon Dioxide 28 (22-32) mmol/L BUN 6 L (9-20) mg/dL Creatinine 0.60 L (0.66-1.25) mg/dL Estimated GFR > 60.0 (>60) mL/min BUN/Creatinine Ratio 10.0 (6-22) Glucose 83 (70-100) mg/dL Calcium 8.0 L (8.4-10.2) mg/dL Magnesium 1.8 (1.6-2.3) mg/dL Total Bilirubin 0.3 (0.2-1.3) mg/dL AST 24 (17-59) IU/L ALT 35 (21-72) IU/L Alkaline Phosphatase 39 (38-126) U/L Total Protein 5.7 L (6.3-8.2) g/dL Albumin 3.2 L (3.5-5.0) g/dL Globulin 2.5 (1.7-4.1) g/dL Albumin/Globulin Ratio 1.3 (1.0-2.8) Urine Color Urine Appearance Urine pH (4.5-8.0) Ur Specific [place] (1.000-1.035) Urine Protein (Negative) Urine Glucose (UA) (Negative) g/dL Urine Ketones (NEGATIVE) Urine Occult Blood (Negative) Urine Nitrate (Negative) Urine Bilirubin (NEGATIVE) Urine Urobilinogen (0.2) E.U./dL Ur Leukocyte Esterase (NEGATIVE) Urine RBC (0-5/HPF) Urine WBC (0-5/HPF) Ur Squamous Epith Cells (0-5/HPF) Urine Bacteria (None) Ur Culture Indicated? Nasal Screen MRSA (PCR) Negative for mrsa (Negative) Urine Opiates Screen (Negative) Ur Oxycodone Screen (Negative) Urine Methadone Screen (Negative) Ur Barbiturates Screen (Negative) U Tricyclic Antidepress (Negative) Ur Phencyclidine Scrn (Negative) Ur Amphetamines Screen (Negative) U Methamphetamines Scrn (Negative) Ur MDMA Scrn (Ecstasy) (Negative) U Benzodiazepines Scrn (Negative) Urine Cocaine Screen (Negative) U Marijuana (THC) Screen (Negative) Ethyl Alcohol mg/dL Ketones (<0.27) mmol/L Point of Care Testing Glucose POC 82 <David Geronimo, DO - Last Filed: 08/31/18 19:50> Lab Data Attestation: I reviewed the patient's lab results. Lab Results 08/31/18 08/31/18 08/31/18 Range/Units 17:08 17:08 17:29 WBC 6.0 (4.5-11.0) X10^3/uL RBC 4.40 L (4.5-5.9) X10^6/uL Hgb 13.8 (13.5-17.5) g/dL Hct 39.8 L (41-53) % MCV 90.6 (80-100) fL MCH 31.4 (26-34) PG MCHC 34.6 (30-36) % RDW 12.9 (11.6-14.8) % Plt Count 128 L (150-400) X10^3/uL Neut % (Auto) 46.1 L (50-75) % Lymph % (Auto) 46.0 H (25-40) % Stephens % (Auto) 6.6 (3-14) % Eos % (Auto) 0.4 L (2-4) % Baso % (Auto) 0.9 (0-2) % Neut # (Auto) 2700 (4815-0912) /uL Lymph # (Auto) 2700 (8963-5506) /uL Stephens # (Auto) 400 (0-900) /uL Eos # (Auto) 0 (0-450) /uL Baso # (Auto) 100 (0-100) /uL ABG pH 7.37 (7.35-7.45) ABG pCO2 42.3 (35-45) mmHg ABG pO2 229 H (80-100) mmHg ABG HCO3 24 (22-26) mmol/L ABG Total CO2 26 (21-31) mmol/L ABG O2 Saturation 100 (95-100) % ABG Base Excess -1.0 (-2-2) mmol/L FiO2 100 Sodium 146 H (137-145) mmol/L Potassium 3.4 (3.4-5.1) mmol/L Chloride 104 (98-107) mmol/L Carbon Dioxide 30 (22-32) mmol/L BUN 8 L (9-20) mg/dL Creatinine 0.70 (0.66-1.25) mg/dL Estimated GFR > 60.0 (>60) mL/min BUN/Creatinine Ratio 11.4 (6-22) Glucose 89 (70-100) mg/dL Calcium 8.5 (8.4-10.2) mg/dL Magnesium (1.6-2.3) mg/dL Total Bilirubin 0.4 (0.2-1.3) mg/dL AST 35 (17-59) IU/L ALT 33 (21-72) IU/L Alkaline Phosphatase 38 (38-126) U/L Total Protein 6.4 (6.3-8.2) g/dL Albumin 3.8 (3.5-5.0) g/dL Globulin 2.6 (1.7-4.1) g/dL Albumin/Globulin Ratio 1.5 (1.0-2.8) Urine Color Urine Appearance Urine pH (4.5-8.0) Ur Specific [place] (1.000-1.035) Urine Protein (Negative) Urine Glucose (UA) (Negative) g/dL Urine Ketones (NEGATIVE) Urine Occult Blood (Negative) Urine Nitrate (Negative) Urine Bilirubin (NEGATIVE) Urine Urobilinogen (0.2) E.U./dL Ur Leukocyte Esterase (NEGATIVE) Urine RBC (0-5/HPF) Urine WBC (0-5/HPF) Ur Squamous Epith Cells (0-5/HPF) Urine Bacteria (None) Ur Culture Indicated? Nasal Screen MRSA (PCR) (Negative) Urine Opiates Screen (Negative) Ur Oxycodone Screen (Negative) Urine Methadone Screen (Negative) Ur Barbiturates Screen (Negative) U Tricyclic Antidepress (Negative) Ur Phencyclidine Scrn (Negative) Ur Amphetamines Screen (Negative) U Methamphetamines Scrn (Negative) Ur MDMA Scrn (Ecstasy) (Negative) U Benzodiazepines Scrn (Negative) Urine Cocaine Screen (Negative) U Marijuana (THC) Screen (Negative) Ethyl Alcohol 331 mg/dL Ketones (<0.27) mmol/L 08/31/18 08/31/18 08/31/18 Range/Units 17:40 17:40 19:00 WBC (4.5-11.0) X10^3/uL RBC (4.5-5.9) X10^6/uL Hgb (13.5-17.5) g/dL Hct (41-53) % MCV (80-100) fL MCH (26-34) PG MCHC (30-36) % RDW (11.6-14.8) % Plt Count (150-400) X10^3/uL Neut % (Auto) (50-75) % Lymph % (Auto) (25-40) % Stephens % (Auto) (3-14) % Eos % (Auto) (2-4) % Baso % (Auto) (0-2) % Neut # (Auto) (9634-0030) /uL Lymph # (Auto) (0492-8231) /uL Stephens # (Auto) (0-900) /uL Eos # (Auto) (0-450) /uL Baso # (Auto) (0-100) /uL ABG pH (7.35-7.45) ABG pCO2 (35-45) mmHg ABG pO2 (80-100) mmHg ABG HCO3 (22-26) mmol/L ABG Total CO2 (21-31) mmol/L ABG O2 Saturation (95-100) % ABG Base Excess (-2-2) mmol/L FiO2 Sodium (137-145) mmol/L Potassium (3.4-5.1) mmol/L Chloride (98-107) mmol/L Carbon Dioxide (22-32) mmol/L BUN (9-20) mg/dL Creatinine (0.66-1.25) mg/dL Estimated GFR (>60) mL/min BUN/Creatinine Ratio (6-22) Glucose (70-100) mg/dL Calcium (8.4-10.2) mg/dL Magnesium (1.6-2.3) mg/dL Total Bilirubin (0.2-1.3) mg/dL AST (17-59) IU/L ALT (21-72) IU/L Alkaline Phosphatase (38-126) U/L Total Protein (6.3-8.2) g/dL Albumin (3.5-5.0) g/dL Globulin (1.7-4.1) g/dL Albumin/Globulin Ratio (1.0-2.8) Urine Color Yellow Urine Appearance Clear Urine pH 7.5 (4.5-8.0) Ur Specific [place] 1.010 (1.000-1.035) Urine Protein Negative (Negative) Urine Glucose (UA) Negative (Negative) g/dL Urine Ketones Negative (NEGATIVE) Urine Occult Blood Negative (Negative) Urine Nitrate Negative (Negative) Urine Bilirubin Negative (NEGATIVE) Urine Urobilinogen 0.2 (0.2) E.U./dL Ur Leukocyte Esterase Negative (NEGATIVE) Urine RBC None seen (0-5/HPF) Urine WBC None seen (0-5/HPF) Ur Squamous Epith Cells 0-1 /hpf (0-5/HPF) Urine Bacteria None seen (None) Ur Culture Indicated? Cult not indicated Nasal Screen MRSA (PCR) (Negative) Urine Opiates Screen Negative (Negative) Ur Oxycodone Screen Negative (Negative) Urine Methadone Screen Negative (Negative) Ur Barbiturates Screen Negative (Negative) U Tricyclic Antidepress Negative (Negative) Ur Phencyclidine Scrn Negative (Negative) Ur Amphetamines Screen Negative (Negative) U Methamphetamines Scrn Negative (Negative) Ur MDMA Scrn (Ecstasy) Negative (Negative) U Benzodiazepines Scrn Negative (Negative) Urine Cocaine Screen Negative (Negative) U Marijuana (THC) Screen Positive H (Negative) Ethyl Alcohol 287 mg/dL Ketones 0.09 (<0.27) mmol/L 08/31/18 09/01/18 Range/Units 21:00 00:25 WBC (4.5-11.0) X10^3/uL RBC (4.5-5.9) X10^6/uL Hgb (13.5-17.5) g/dL Hct (41-53) % MCV (80-100) fL MCH (26-34) PG MCHC (30-36) % RDW (11.6-14.8) % Plt Count (150-400) X10^3/uL Neut % (Auto) (50-75) % Lymph % (Auto) (25-40) % Stephens % (Auto) (3-14) % Eos % (Auto) (2-4) % Baso % (Auto) (0-2) % Neut # (Auto) (6261-6292) /uL Lymph # (Auto) (5882-5180) /uL Stephens # (Auto) (0-900) /uL Eos # (Auto) (0-450) /uL Baso # (Auto) (0-100) /uL ABG pH (7.35-7.45) ABG pCO2 (35-45) mmHg ABG pO2 (80-100) mmHg ABG HCO3 (22-26) mmol/L ABG Total CO2 (21-31) mmol/L ABG O2 Saturation (95-100) % ABG Base Excess (-2-2) mmol/L FiO2 Sodium 147 H (137-145) mmol/L Potassium 3.3 L (3.4-5.1) mmol/L Chloride 112 H (98-107) mmol/L Carbon Dioxide 28 (22-32) mmol/L BUN 6 L (9-20) mg/dL Creatinine 0.60 L (0.66-1.25) mg/dL Estimated GFR > 60.0 (>60) mL/min BUN/Creatinine Ratio 10.0 (6-22) Glucose 83 (70-100) mg/dL Calcium 8.0 L (8.4-10.2) mg/dL Magnesium 1.8 (1.6-2.3) mg/dL Total Bilirubin 0.3 (0.2-1.3) mg/dL AST 24 (17-59) IU/L ALT 35 (21-72) IU/L Alkaline Phosphatase 39 (38-126) U/L Total Protein 5.7 L (6.3-8.2) g/dL Albumin 3.2 L (3.5-5.0) g/dL Globulin 2.5 (1.7-4.1) g/dL Albumin/Globulin Ratio 1.3 (1.0-2.8) Urine Color Urine Appearance Urine pH (4.5-8.0) Ur Specific [place] (1.000-1.035) Urine Protein (Negative) Urine Glucose (UA) (Negative) g/dL Urine Ketones (NEGATIVE) Urine Occult Blood (Negative) Urine Nitrate (Negative) Urine Bilirubin (NEGATIVE) Urine Urobilinogen (0.2) E.U./dL Ur Leukocyte Esterase (NEGATIVE) Urine RBC (0-5/HPF) Urine WBC (0-5/HPF) Ur Squamous Epith Cells (0-5/HPF) Urine Bacteria (None) Ur Culture Indicated? Nasal Screen MRSA (PCR) Negative for mrsa (Negative) Urine Opiates Screen (Negative) Ur Oxycodone Screen (Negative) Urine Methadone Screen (Negative) Ur Barbiturates Screen (Negative) U Tricyclic Antidepress (Negative) Ur Phencyclidine Scrn (Negative) Ur Amphetamines Screen (Negative) U Methamphetamines Scrn (Negative) Ur MDMA Scrn (Ecstasy) (Negative) U Benzodiazepines Scrn (Negative) Urine Cocaine Screen (Negative) U Marijuana (THC) Screen (Negative) Ethyl Alcohol mg/dL Ketones (<0.27) mmol/L Point of Care Testing Glucose POC 82 MDM Narrative Medical decision making narrative: Dr Geronimo : Received turnover from day provider. Reviewed patient's note. Perform my own history and physical exam. Patient's alcohol level was elevated. He is well known to myself in this emergency department. There also reports that he was found next to a bottle of hand application integrator. Unsure as to whether not he ingested any of this substance. He has an anion gap of 12. PH is 7.368. Patient was observed here in the emergency department for another hour and a half with the anticipation that as he metabolized his alcohol he could potentially be extubated. After this time he was becoming slightly more responsive however not to the point where I was comfortable extubating the patient. He has not been on sedation. Discussed the case with the night hospitalist. Will admit the patient for continued evaluation and treatment. The tube was advanced 1.5 cm prior to admission. Discharge Plan Departure Patient Disposition: Admitted As Inpatient Clinical Impression: Alcohol intoxication Qualifiers: Complication of substance-induced condition: with unspecified complication Qualified Code(s): F10.929 - Alcohol use, unspecified with intoxication, unspecified Discharge Date/Time: 08/31/18 21:00 Interventions: ED Discharge Assessment Last Done: 08/31/18 21:29 Referrals: Luigi Bains MD [Primary Care Provider] - Admit Date/Time: 08/31/18 19:53 Admit Provider: Monie Marin
[2018-08-31] MEDS: SODIUM CHLORIDE 0.9% 1,000 ML 1000 ML IV (17:28)
[2018-08-31 17:31] LABS: Alanine Aminotransferase 33 IU/L (21-72); Albumin 3.8 g/dL (3.5-5.0); Albumin Globulin Ratio 1.5 (1.0-2.8); Alkaline Phosphatase 38 U/L (38-126); Aspartate Aminotransferase 35 IU/L (17-59); BUN Creatinine Ratio 11.4 (6-22); Bilirubin Total 0.4 mg/dL (0.2-1.3); Blood Urea Nitrogen 8 mg/dL (9-20); Calcium 8.5 mg/dL (8.4-10.2); Carbon Dioxide 30 mmol/L (22-32); Chloride 104 mmol/L (98-107); Estimated Glomerular Filt Rate > 60.0 mL/min (>60); Globulin 2.6 g/dL (1.7-4.1); Glucose 89 mg/dL (70-100); HEMOLYSIS 42 (0-50); Potassium 3.4 mmol/L (3.4-5.1); Sodium 146 mmol/L (137-145); Total Protein 6.4 g/dL (6.3-8.2)
[2018-08-31 17:38] LABS: Ethanol (ETOH) 331 mg/dL
--- NOTE | 2018-08-31 17:46 | PC.NURSE ---
Met some resistance inserting gastric tube. Pulled tube out and found partial piece of gum stuck to tube. Notified provider. Airway is patent and secure. Re-inserted tube after repositioning neck with provider at bedside. Patient tolerated procedure well.
[2018-08-31 17:47] LABS: Bacteria Urine None Seen; RBC Urine None Seen (0-5/HPF); WBC Urine None Seen (0-5/HPF)
[2018-08-31 17:58] LABS: Appearance Urine UA CLEAR; Bilirubin Urine UA NEGATIVE (NEGATIVE); Color Urine UA YELLOW; Glucose Urine UA NEGATIVE (Negative); Ketones Urine UA NEGATIVE (NEGATIVE); Leukocyte Esterase Urine UA NEGATIVE (NEGATIVE); Nitrite Urine UA NEGATIVE (Negative); Occult Blood Urine UA NEGATIVE (Negative); Protein Urine UA NEGATIVE (Negative); Urobilinogen Urine UA 0.2 E.U./dL (0.2); pH Urine UA 7.5 (4.5-8.0)
[2018-08-31 18:05] LABS: HCO3 ABG 24 mmol/L (22-26); Oxygen Saturation ABG 100 % (95-100); PCO2 ABG 42.3 mmHg (35-45); PO2 ABG 229 mmHg (80-100); TCO2 ABG 26 mmol/L (21-31); pH ABG 7.37 (7.35-7.45)
[2018-08-31 18:06] LABS: Fractionated Inspired Oxygen 100
[2018-08-31 18:08] LABS: Urine Amphetamines Negative (Negative); Urine Barbiturates Negative (Negative); Urine Benzodiazepines Negative (Negative); Urine Cocaine Negative (Negative); Urine MDMA Negative (Negative); Urine Methadone Negative (Negative); Urine Methamphetamines Negative (Negative); Urine Morphine/Opi cutoff 2000 Negative (Negative); Urine Oxycodone Negative (Negative); Urine Phencyclidine Negative (Negative); Urine Tetrahydrocannabinol Positive (Negative); Urine Tricyclic Antidepressant Negative (Negative)
[2018-08-31 18:09] LABS: Culture Indicated Urine Cult Not Indicated; Squamous Epithelial Cell Urine 0-1 /HPF (0-5/HPF)
--- NOTE | 2018-08-31 19:14 | PC.NURSE ---
Addendum entered by Dacia Kelly R.N. 08/31/18 19:53: Pt responding to stimuli, squeezes hand on command, and opened eyes once. Passively reaching for ET tube. Provider aware. Continue to monitor one on one for airway precautions. Original Note: Patient resting on stretcher. No acute distress. Patient showing no signs of waking up. Continues to be without sedation, per provider order. Obtained repeat labs per order.
[2018-08-31 19:20] LABS: Ethanol (ETOH) 287 mg/dL
[2018-08-31 19:22] LABS: Ketones (Beta-Hydroxybutyrate) 0.09 mmol/L (<0.27)
--- NOTE | 2018-08-31 19:49 | PM.HP.1 ---
History of Present Illness Date Patient Seen: 08/31/18 Time Patient Seen: 21:05 Chief complaint: Unresponsive Narrative: The patient is a 28-year-old male with PMH alcohol abuse / dependence disorder, depression, suicidality, eating disorder, epilepsy, and low back pain. patient was brought to the ED via EMS after being found unresponsive, lying next to a dumpster with a bottle of hand molecular biology director next to him. At time of discovery he was noted to have very shallow respirations and bradycardia. He was given Narcan, which is noted to have been minimally effective; consequently, he was intubated (by EMS, in field). Thereafter, he was transferred to the ED for further evaluation. Patient is known to have recurrent hospital admissions for similar; frequently requiring intubation for airway protection. Known to have prior history of being involuntary commitment under [employer] [employer] for safety and secure detox. EtOH on presentation of 330. Review of history shows that patient has severe ETOH dependence, previously refractory to treatment. He is known to have at least 12 hospitalizations with associated intubation in the past 1-2 years. ED Work-Up WBC 6.0 HGB 13.8 HCT 39.8 PLT 128 NA 146 K 3.4 CL 104 CA 8.5 CR 0.7 BUN 8.0 liver enzymes WNL UA unremarkable, UDS + marijuana, EtOH level 331 Patient History Medical History Alcoholism (Acute) Depression (Acute) Eating disorder (Acute) Epilepsy (Acute) Low back pain (Acute) Family History Grandfather Type 2 diabetes mellitus without complication, unspecified intermediate card tender insulin use status Grandmother Type 2 diabetes mellitus without complication, unspecified [facility] insulin use status Mother Uncomplicated asthma, unspecified asthma severity Sister Uncomplicated asthma, unspecified asthma severity Unknown No problems noted. Social History household members: spouse and family Smoking Status: Unknown if ever smoked alcohol intake: current Family & Social History Family History Grandfather Type 2 diabetes mellitus without complication, unspecified [facility] insulin use status Grandmother Type 2 diabetes mellitus without complication, unspecified [facility] insulin use status Mother Uncomplicated asthma, unspecified asthma severity Sister Uncomplicated asthma, unspecified asthma severity Unknown No problems noted. Social History: household members spouse,family Safety & Behavioral: Feels Safe in Current No Environment Tobacco & Substance use: Tobacco type cannabis/marijuana Smoking Status Unknown if ever smoked alcohol intake current alcohol intake frequency 3 or more drinks per day Substance Use Type marijuana Meds Home Medications Medication Instructions Recorded Confirmed Type Unobtainable 03/19/18 03/27/18 History Allergies Allergy/AdvReac Type Severity Reaction Status Date / Time shrimp [SHRIMP] Allergy Severe THROAT Verified 08/31/18 17:18 SWELLING/HIVES diazepam [From VALIUM] Allergy Intermediate LEG Verified 08/31/18 17:18 SWELLING haloperidol [From HALDOL] Allergy Unknown DYSTONIA Verified 08/31/18 17:18 naproxen [NAPROXEN] AdvReac Mild NAUSEA/GI Verified 08/31/18 17:18 DISTRESS Review of Systems Review of Systems due to endotracheal tube Exam Vital Signs (past 8 hours): - 08/31/18 17:10 08/31/18 18:14 08/31/18 18:20 Temperature 97.2 F L Pulse Rate 69 71 59 L Respiratory Rate 15 15 15 Blood Pressure 119/90 Blood Pressure [Right Arm] 105/68 106/52 L Pulse Oximetry 100 100 100 08/31/18 18:40 08/31/18 19:00 08/31/18 19:20 Temperature Pulse Rate 61 60 58 L Respiratory Rate 15 15 15 Blood Pressure Blood Pressure [Right Arm] 100/64 100/67 90/55 L Pulse Oximetry 100 100 100 08/31/18 19:40 Temperature Pulse Rate 62 Respiratory Rate 15 Blood Pressure Blood Pressure [Right Arm] 103/69 Pulse Oximetry 100 Oxygen Delivery Method Mechanical Ventilation Oxygen Flow Rate 35 Narrative Exam Narrative: Constitutional: restless, restrained Neurologic: obtunded, able to awaken w/ tactile stimuli, follows simple commands Head: NC, AT Eyes: pupils equal and reactive, gaze conjugate Ears: external ears normal, no otorrhea Nose: external nose normal, no rhinorrhea or epistaxis Throat: dry MM, oropharynx w/o exudate, ET tube and OG tube present Neck: supple, no masses Chest / Respiratory: equal chest rise, unlabored respiratory effort, CTAB, ventilated / tolerating ventilation Heart / CV: S1S2, no murmur Abdomen / GI: round, NT, ND, + BS, no overt hepatomegally Peripheral / Vascular: warm to touch, DP and PT pulses palpable, no edema Musc: full ROM of upper and lower extremities, adequate muscle tone and bulk Skin: no ecchymosis or suspicious lesions / ulcers Objective Labs Result Diagrams: 08/31/18 17:08 09/01/18 00:25 Labs: Laboratory Results - last 24 hr 08/31/18 08/31/18 08/31/18 17:08 17:08 17:29 WBC 6.0 RBC 4.40 L Hgb 13.8 Hct 39.8 L MCV 90.6 MCH 31.4 MCHC 34.6 RDW 12.9 Plt Count 128 L Neut % (Auto) 46.1 L Lymph % (Auto) 46.0 H Baldwin % (Auto) 6.6 Eos % (Auto) 0.4 L Baso % (Auto) 0.9 Neut # (Auto) 2700 Lymph # (Auto) 2700 Baldwin # (Auto) 400 Eos # (Auto) 0 Baso # (Auto) 100 ABG pH 7.37 ABG pCO2 42.3 ABG pO2 229 H ABG HCO3 24 ABG Total CO2 26 ABG O2 Saturation 100 ABG Base Excess -1.0 FiO2 100 Sodium 146 H Potassium 3.4 Chloride 104 Carbon Dioxide 30 BUN 8 L Creatinine 0.70 Estimated GFR > 60.0 BUN/Creatinine Ratio 11.4 Glucose 89 Calcium 8.5 Total Bilirubin 0.4 AST 35 ALT 33 Alkaline Phosphatase 38 Total Protein 6.4 Albumin 3.8 Globulin 2.6 Albumin/Globulin Ratio 1.5 Urine Color Urine Appearance Urine pH Ur Specific Sullivan Urine Protein Urine Glucose (UA) Urine Ketones Urine Occult Blood Urine Nitrate Urine Bilirubin Urine Urobilinogen Ur Leukocyte Esterase Urine RBC Urine WBC Ur Squamous Epith Cells Urine Bacteria Ur Culture Indicated? Urine Opiates Screen Ur Oxycodone Screen Urine Methadone Screen Ur Barbiturates Screen U Tricyclic Antidepress Ur Phencyclidine Scrn Ur Amphetamines Screen U Methamphetamines Scrn Ur MDMA Scrn (Ecstasy) U Benzodiazepines Scrn Urine Cocaine Screen U Marijuana (THC) Screen Ethyl Alcohol 331 Ketones 08/31/18 08/31/18 08/31/18 17:40 17:40 19:00 WBC RBC Hgb Hct MCV MCH MCHC RDW Plt Count Neut % (Auto) Lymph % (Auto) Baldwin % (Auto) Eos % (Auto) Baso % (Auto) Neut # (Auto) Lymph # (Auto) Baldwin # (Auto) Eos # (Auto) Baso # (Auto) ABG pH ABG pCO2 ABG pO2 ABG HCO3 ABG Total CO2 ABG O2 Saturation ABG Base Excess FiO2 Sodium Potassium Chloride Carbon Dioxide BUN Creatinine Estimated GFR BUN/Creatinine Ratio Glucose Calcium Total Bilirubin AST ALT Alkaline Phosphatase Total Protein Albumin Globulin Albumin/Globulin Ratio Urine Color Yellow Urine Appearance Clear Urine pH 7.5 Ur Specific Sullivan 1.010 Urine Protein Negative Urine Glucose (UA) Negative Urine Ketones Negative Urine Occult Blood Negative Urine Nitrate Negative Urine Bilirubin Negative Urine Urobilinogen 0.2 Ur Leukocyte Esterase Negative Urine RBC None seen Urine WBC None seen Ur Squamous Epith Cells 0-1 /hpf Urine Bacteria None seen Ur Culture Indicated? Cult not indicated Urine Opiates Screen Negative Ur Oxycodone Screen Negative Urine Methadone Screen Negative Ur Barbiturates Screen Negative U Tricyclic Antidepress Negative Ur Phencyclidine Scrn Negative Ur Amphetamines Screen Negative U Methamphetamines Scrn Negative Ur MDMA Scrn (Ecstasy) Negative U Benzodiazepines Scrn Negative Urine Cocaine Screen Negative U Marijuana (THC) Screen Positive H Ethyl Alcohol 287 Ketones 0.09 Assessment & Plan Assessment & Plan narrative: Acute respiratory failure in the setting of alcohol intoxication, present on admission - Intubated in field, tolerates ventilation - continue respiratory support through the night, likely to trial weaning and extubation in the morning Alcohol intoxication (EtOH level 330 on admission), acute, present on admission, active - Banana bag - Assess CIWA Q4H, monitor for EtOH withdrawl symptoms Hypernatremia (Na 146, mild), acute, present on admission, active - Monitor Na, BMP at midnight - IVF H/O seizures in the setting of EtOH withdrawal - seizure precautions Full code status Home medications reviewed and reconciled accordingly
--- NOTE | 2018-08-31 21:17 | PC.NURSE ---
2100 - Patient admitted to room 102. Brought over on stretcher by nursing staff and RT. Transferred to bed using slider board. Patient sleepy, but awakens and makes eye contact. Able to follow directions. Reached for ET tube multiple times. Nurse practitioner notified and gave verbal order for soft wrist restraints which were applied. Vital signs stable. Call light within reach.
[2018-08-31] MEDS: ONDANSETRON 4 MG/2 ML INJ IV (21:49)
[2018-08-31] MEDS: MAGNESIUM SULFATE 2 GM, FOLIC ACID 1 MG, THIAMINE 100 MG, MULTIVITAMIN 10 ML in SODIUM ... IV (21:49)
[2018-09-01] VITALS: BP 85/47; PULSE 56; RESP 12; TEMP 36.3; O2SAT 99
[2018-09-01 00:46] LABS: Alanine Aminotransferase 35 IU/L (21-72); Albumin 3.2 g/dL (3.5-5.0); Albumin Globulin Ratio 1.3 (1.0-2.8); Alkaline Phosphatase 39 U/L (38-126); Aspartate Aminotransferase 24 IU/L (17-59); Bilirubin Total 0.3 mg/dL (0.2-1.3); Blood Urea Nitrogen 6 mg/dL (9-20); Carbon Dioxide 28 mmol/L (22-32); Chloride 112 mmol/L (98-107); Estimated Glomerular Filt Rate > 60.0 mL/min (>60); Globulin 2.5 g/dL (1.7-4.1); Glucose 83 mg/dL (70-100); HEMOLYSIS < 15 (0-50); Magnesium 1.8 mg/dL (1.6-2.3); Potassium 3.3 mmol/L (3.4-5.1); Sodium 147 mmol/L (137-145); Total Protein 5.7 g/dL (6.3-8.2)
[2018-09-01 01:00] VITALS: BP 87/51; PULSE 57; O2SAT 99
[2018-09-01] MEDS: POTASSIUM CHLORIDE 20 MEQ TAB 40 MEQ PO ×2 (01:45→01:50)
--- NOTE | 2018-09-01 01:46 | P.EN_ITS ---
Date Patient Seen: 09/01/18 Time Patient Seen: 01:36 Prior to 1:36 a.m. (5-10 min) have called the ICU to follow up on patient's repeat lab draw and make change in IV fluids. In midst of the conversation the nurse main me aware that patient is trying to-extubate himself. I have asked the nurse to call the RT for immediate evaluation and possibly rapid extubation, if patient is ready. This was communicated specifically in hopes of circumventing self extubation by the patient in an effort to avoid potential damage to the larynx, if to occur, can have its own sequela of airway and respiratory complications. Anticipated to see patient immediately; however, received call from the ED with new admission, which caused less than a 10 minute delay. During that time warehouse pricing and inventory clerk contacted me letting me know that patient has self-extubated and that I was needed in the ICU immediately. Upon arrival to the ICU, patient was standing upright and voiding in the bathroom. There was no ventilator or any other respiratory support equipment in the room noted at that time. Patient's RN communicated that he wishes to leave [place]. I have discussed with patient regarding the matter in detail. Discussed repeat labs and abnormal electrolytes, mildly elevated sodium (Na 147) and sub- optimal potassium level (K 3.3). Patient was encouraged to stay until the morning for adequate IV hydration and correction of metabolic derangements. Patient reported understanding, however continued to decline further care. Specific risks of cardiac arrhythmia and discussed with the patient. Prior to discharge patient was treated with 40 mEq KCl. He also received water and half a sandwich prior to leaving. EXAM No acute distress Alert oriented x3, no focal deficits No tremor or diaphoresis noted CTAB, no dyspnea or tachypnea S1-S2 No abdominal distension or organomegaly Patient denied chest pain, palpitations, dizziness, lightheadedness, abdominal pain, and nausea. Vital signs prior to patient's departure BP 133/77 HR 71 SpO2 100% Upon arrival to the unit patient was restrained with bilateral soft wrist restraints for non-violent measures, mostly in an effort to protect the airway. Restraints ordered per hospital protocol with monitoring indicated in the protocol. Restraint order was for 24 hour period. In addition: Shortly after 02:30, I have followed up with the nurse in regard to the matter in an effort to understand how the patient has extubated self as he was restrained and I have not received any communication in the interim of patient being restless. The nurse communicated that patient has awakened and rapidly extubated self. The following were also communicated: patient woke up suddenly and self-extubated and RN unable to get to patient in time as was on the phone with the provider. Inquired about proper securement of the wrist restraints and the nurse believed that the restraints were in place properly. The nurse has also communicated the following: patient has extubated self on many occasions with past admissions, at times while sedated on propofol; statement repeatedly made, this is patient's MO - [MO presumed to mead 'modus operandi]; noted that at time of the event, 3 nurses present in patient's room and unable to prevent patient from self-extubating. Also, discovered that the warehouse pricing and inventory clerk was at the nursing station at time of the event and observed patient to sit up in bed suddenly, bring down his head to his hand, and then self extubate. There is a degree of concern that patient's restraints may not have been improperly or perhaps loosely secured. Most recent restraint assessment, per record, was done at 1:00 AM. At that time patient noted to be unresponsive. Some of the alternatives attempted to avoid restraints included family/funeral service apprentice presents and reality orientation. Initiation/continuation in regard to actions taken related to restrain/seclusion note chemical restraint. It is also noted that at 0100 the restraint was checked and left intact and the following patient care was performed, nutrition offered, ROM performed, and mentas status checked. At time of this assessment patient did not have any family present with him. I have also not been aware that patient has had any family visited or be with him since admission. He was originally brought in by EMS. There was never an attempt to restrain patient chemically, as he was already in an obtunded state on presentation to the ED and at time of my original assessment in the 9:00 p. m.. Patient has not received any RESIDENT INTERN depressing medication during his hospital stay. Most immediate documentation on the patient mental status and restraint at 1:00 a.m., which is approximately 30 minutes prior to patient's self extubation, he was noted to be unresponsive. There appears to be a degree of conflicting documentation, as it is noted that patient received reality orientation and was offered nutrition, yet also he was in an unresponsive state. (see 0100 restraint assessment). At time of my original evaluation of the patient in the 9:00 p.m. patient was obtunded; however, did withdraw to painful or tactile stimuli, opens eyes spontaneously, and follow simple commands (specifically able to lift extremities and squeeze hands bilaterally as well as communicate with a head motion of not being in discomfort). I have also observed patient being transferred from the cart to the bed upon arrival to the ICU and patient was noted to have spontaneous upper and lower extremity move ment.
[2018-09-01 02:00] VITALS: BP 113/77; PULSE 71; O2SAT 100
--- NOTE | 2018-09-01 02:29 | PC.NURSE ---
Addendum entered by Claudia Kim R.N. 09/01/18 02:43: 0120 Without any warning pt suddenly woke, sat up in bed bending forward to restrained hand and dislodged ETT, once staff in the room pt would not release tube until fully pulled out. Pt awake, alert and questioning why he is in the hospital. Pt cooperative as he became more aware of surroundings. Refuses monitoring, wants IV's pulled and wants to leave AMA. VS checked and stable. 100% sats on room air, lungs clear. IVF's stopped. CHEMICAL OPERATIONS SPECIALIST notified to come eval pt. Pt requesting food, water. Given per CHEMICAL OPERATIONS SPECIALIST who is in to see pt. Discussed with pt medical condition, etc. Pt still wants to leave. Agreed to take po potassium before leaving, which was given. IV's D/C'd pt signed AMA form, and escorted to front door. Stable on discharge. Original Note: NOC Shift: Pt vented, found down nonresponsive, intubated in field. Was nodding appropriate at times in ED, is not following commands at the beginning of shift. Restrained on no sedation at this time. VSS, SB on tele. IVF running, no murphy catheter. Pt does not respond to verbal commands, will move limbs spontaneously when staff not in the room, in restraints x2 for safety. ICU care.
== END 2018-09-01 03:15 | disposition left against medical advice (07) | DRG 816 ==
LOC: ED 19:46 → AC 19:54 → ICU 21:16
PROVIDERS: Emergency Medicine; Admitting Provider Nurse Practitioner Gerontology; Emergency Provider Emergency Medicine; Family Provider Family Medicine; PCP Family Medicine; Visit Provider Nurse Practitioner Gerontology
DX: T51.91XA Toxic effect of unspecified alcohol, accidental (unintentional), initial encounter (principal); J96.00 Acute respiratory failure, unspecified whether with hypoxia or hypercapnia; F10.229 Alcohol dependence with intoxication, unspecified; R40.2342 Coma scale, best motor response, flexion withdrawal, at arrival to emergency department; R40.2112 Coma scale, eyes open, never, at arrival to emergency department; R40.2212 Coma scale, best verbal response, none, at arrival to emergency department; F32.9 Major depressive disorder, single episode, unspecified; E87.0 Hyperosmolality and hypernatremia
CPT/HCPCS: 31500; 36415; 36591; 36600; 71045; 80053; 80305; 80320; 81001; 82009; 82805; 82962; 83735; 85025; 87797; 93005; 93010; 93041; 94002; 94003; 94770; 94799; 96360; 99285; 99291; 99292; J2405; J3475

== ENCOUNTER 2018-09-01 13:47 | Inpatient (IN) | payer OTHER, MEDICAID, SELFPAY ==
[2018-08-31 21:23] VITALS: BMI 22.4
[2018-08-31 23:30] VITALS: PULSE 56; RESP 15; O2SAT 99
[2018-09-01] VITALS (17 sets, daily range): BP systolic 81–140; BP diastolic 45–96; PULSE 56–79; RESP 15–20; TEMP 36.2–37.2; O2SAT 99–100; BMI 21.4
--- NOTE | 2018-09-01 13:54 | DI.RAD.S_ITS ---
PROCEDURE: XR CHEST 1V INDICATIONS: post intubation/etoh TECHNIQUE: One view of the chest was acquired. COMPARISON: [facility], CR, XR CHEST 1V, 08/31/2018, 17:06. [facility], CR, XR CHEST 1V, 04/02/2018, 16:50. [facility], CR, XR CHEST 1V, 03/24/2018, 18:07. [facility], CR, XR CHEST 1V, 03/03/2018, 22:42. FINDINGS: Surgical changes and devices: Endotracheal tube tip projects over the superior trachea between the clavicular heads, approximately 5 cm above the matthew. This is similar to comparison exam of 08/31/18 Lungs and pleura: There is prominence of pulmonary vasculature. No focal air space disease is identified. No pleural effusions or pneumothorax. Mediastinum: Mediastinal contours appear normal. Heart size is normal. Bones and chest wall: No suspicious bony lesions. Overlying soft tissues appear unremarkable. IMPRESSION: Endotracheal tube tip projects over the superior trachea between the clavicular heads, approximately 5 cm above the matthew. Dictated by: Chris Stern M.D. on 09/01/2018 at 14:11 Approved by: Chris Stern M.D. on 09/01/2018 at 14:16
--- NOTE | 2018-09-01 13:56 | ED.AMS ---
HPI - Altered Mental Status General Chief Complaint: Unresponsive Stated Complaint: Unresponsive, intubated, found down at [facility] Time Seen by Provider: 09/01/18 13:53 Source: EMS and old records reviewed Mode of arrival: EMS Limitations: altered mental status History of Present Illness HPI narrative: This is a 28-year-old male who comes to the emergency department with altered mental status. He was found behind the local [employer] by the back door passed out with a bottle vodka that was about 3/4 full. Patient is well known to the department for recurrent intubations because of alcohol intoxication. Patient did not have a gag reflex in the field. He had abrasion on his forehead. He was actually here yesterday and admitted to the ICU. Patient was intubated in the field with succinate ill and ketamine. Placed in a C-collar. No other obvious signs of trauma were noted. Related Data Home Medications Medication Instructions Recorded Confirmed Unobtainable 03/19/18 09/01/18 Allergies Allergy/AdvReac Type Severity Reaction Status Date / Time shrimp [SHRIMP] Allergy Severe THROAT Verified 09/01/18 13:57 SWELLING/HIVES diazepam [From VALIUM] Allergy Intermediate LEG Verified 09/01/18 13:57 SWELLING haloperidol [From HALDOL] Allergy Unknown DYSTONIA Verified 09/01/18 13:57 naproxen [NAPROXEN] AdvReac Mild NAUSEA/GI Verified 09/01/18 13:57 DISTRESS Review of Systems Review of Systems ROS Unobtainable: Unobtainable due to mental status/LOC Exam Narrative Exam Narrative: GEN: well nourished, well appearing male, intubated and unresponsive HEENT: Atraumatic, pupils are equal round reactive to light, nares are clear, TMs are clear with no fluid/no hemotympanum or blood,, there is no conjunctival pallor. The patient is intubated with a 7 ETT 24 @ the teeth. HEART: Regular rate and rhythm without murmur, clicks, rubs. Pulses are equal in upper and lower extremities LUNGS:Lungs clear to auscultation, no wheezes, rales, crackles, chest moves symmetrically with BVM. ABD:bowel sounds normal, soft, non-tender, nondistended, no guarding, rebound, rigidity, no masses noted, no hepatosplenomegaly MSCL: Non-tender, no muscle atrophy NEURO:CN 2-12 intact, sensation normal. Intubated. Initial Vital Signs Initial Vital Signs: Vital Signs Temperature 97.1 F L 09/01/18 13:51 Pulse Rate 79 09/01/18 13:51 Respiratory Rate 15 09/01/18 13:51 Blood Pressure 140/96 H 09/01/18 13:51 Pulse Oximetry 99 09/01/18 13:51 Scores GCS [place] coma scale eye opening: None Izzy coma scale verbal response: None [place] coma scale motor response: None [place] coma scale total score: 3 Course Orders Ordered: ED Orders 09/01/18 13:54 XR chest 1V Stat 09/01/18 14:04 CT cervical spine wo con Stat CT head/brain wo con Stat 09/01/18 14:20 EKG-12 Lead Stat 09/01/18 14:26 Arterial Blood Gas Stat 09/01/18 14:39 Complete Blood Count AUTO DIFF Stat Comprehensive Metabolic Panel Stat Ethanol (ETOH) Stat Hepatic (Liver) Panel Stat Lipase Stat Magnesium Stat Prothrombin Time INR Stat 09/01/18 15:10 Urine Drug Screen, Rapid Stat 09/01/18 15:21 Ventilator Order 09/01/18 19:34 Consult to Dietitian, Adult Routine Consult to [employer] Routine 09/02/18 06:00 Complete Blood Count AUTO DIFF Stat Comprehensive Metabolic Panel Stat Magnesium Stat Magnesium Sulfate 2 gm/ Folic Acid 1 mg/ Thiamine HCl 100 mg / Multivitamins 10 ml/ Sodium Chloride 1,015.2 mls @ 75 mls/hr IV NOW ONE Stop: 09/02/18 03:25 Last Infusion: 09/01/18 17:00 Dose: 125 mls/hr Admin: 09/01/18 14:47 Dose: 125 mls/hr Propofol (Propofol) 1,000 mg in 100 mls @ 2.082 mls/hr IV TITRATE HOLGER; Protocol Last Titration: 09/01/18 17:00 Dose: 20 mcg/kg/min, 8.328 mls/hr Titration: 09/01/18 15:44 Dose: 15 mcg/kg/min, 6.246 mls/hr Titration: 09/01/18 15:29 Dose: 10 mcg/kg/min, 4.164 mls/hr Admin: 09/01/18 14:24 Dose: 5 mcg/kg/min, 2.082 mls/hr Dextrose (Dextrose 5% Water) 1,000 mls @ 75 mls/hr IV CONT HOLGER Last Admin: 09/01/18 20:15 Dose: 75 mls/hr Discontinued Medications Lorazepam (Ativan) 2 mg IV NOW ONE Stop: 09/01/18 13:54 Last Admin: 09/01/18 14:00 Dose: 2 mg Vital Signs - 8 hr 09/01/18 13:51 09/01/18 14:30 09/01/18 14:45 Temperature 97.1 F L Pulse Rate 79 64 64 Respiratory Rate 15 15 15 Blood Pressure 140/96 H Blood Pressure [Right Arm] 113/72 Pulse Oximetry 99 100 100 09/01/18 15:00 09/01/18 15:15 09/01/18 15:30 Temperature Pulse Rate 62 65 58 L Respiratory Rate 15 15 15 Blood Pressure Blood Pressure [Right Arm] 101/57 L 113/73 110/72 Pulse Oximetry 100 100 09/01/18 16:15 Temperature Pulse Rate 59 L Respiratory Rate 15 Blood Pressure Blood Pressure [Right Arm] 112/73 Pulse Oximetry 99 MDM - Altered Mental Status Lab Data Attestation: I reviewed the patient's lab results. Result diagrams: 09/01/18 14:39 09/01/18 14:39 Lab Results 09/01/18 09/01/18 09/01/18 Range/Units 14:26 14:39 14:39 WBC 5.5 (4.5-11.0) X10^3/uL RBC 4.20 L (4.5-5.9) X10^6/uL Hgb 13.0 L (13.5-17.5) g/dL Hct 38.3 L (41-53) % MCV 91.1 (80-100) fL MCH 31.0 (26-34) PG MCHC 34.0 (30-36) % RDW 12.9 (11.6-14.8) % Plt Count 127 L (150-400) X10^3/uL Neut % (Auto) 65.8 (50-75) % Lymph % (Auto) 27.9 (25-40) % [place] % (Auto) 5.4 (3-14) % Eos % (Auto) 0.2 L (2-4) % Baso % (Auto) 0.7 (0-2) % Neut # (Auto) 3600 (8955-4800) /uL Lymph # (Auto) 1500 (5098-1848) /uL [place] # (Auto) 300 (0-900) /uL Eos # (Auto) 0 (0-450) /uL Baso # (Auto) 0 (0-100) /uL PT 12.5 (10.1-12.7) SECONDS INR 1.1 (0.9-1.3) ABG pH 7.42 (7.35-7.45) ABG pCO2 39.5 (35-45) mmHg ABG pO2 181 H (80-100) mmHg ABG HCO3 26 (22-26) mmol/L ABG Total CO2 27 (21-31) mmol/L ABG O2 Saturation 100 (95-100) % ABG Base Excess 1.0 (-2-2) mmol/L FiO2 35 Sodium (137-145) mmol/L Potassium (3.4-5.1) mmol/L Chloride (98-107) mmol/L Carbon Dioxide (22-32) mmol/L BUN (9-20) mg/dL Creatinine (0.66-1.25) mg/dL Estimated GFR (>60) mL/min BUN/Creatinine Ratio (6-22) Glucose (70-100) mg/dL Calcium (8.4-10.2) mg/dL Magnesium (1.6-2.3) mg/dL Total Bilirubin (0.2-1.3) mg/dL Conjugated Bilirubin (0.0-0.3) md/dL Unconjugated Bilirubin (0.0-1.1) mg/dL AST (17-59) IU/L ALT (21-72) IU/L Alkaline Phosphatase (38-126) U/L Total Protein (6.3-8.2) g/dL Albumin (3.5-5.0) g/dL Globulin (1.7-4.1) g/dL Albumin/Globulin Ratio (1.0-2.8) Lipase (23-300) U/L Urine Opiates Screen (Negative) Ur Oxycodone Screen (Negative) Urine Methadone Screen (Negative) Ur Barbiturates Screen (Negative) U Tricyclic Antidepress (Negative) Ur Phencyclidine Scrn (Negative) Ur Amphetamines Screen (Negative) U Methamphetamines Scrn (Negative) Ur MDMA Scrn (Ecstasy) (Negative) U Benzodiazepines Scrn (Negative) Urine Cocaine Screen (Negative) U Marijuana (THC) Screen (Negative) Ethyl Alcohol mg/dL 09/01/18 09/01/18 09/01/18 Range/Units 14:39 14:39 15:10 WBC (4.5-11.0) X10^3/uL RBC (4.5-5.9) X10^6/uL Hgb (13.5-17.5) g/dL Hct (41-53) % MCV (80-100) fL MCH (26-34) PG MCHC (30-36) % RDW (11.6-14.8) % Plt Count (150-400) X10^3/uL Neut % (Auto) (50-75) % Lymph % (Auto) (25-40) % [place] % (Auto) (3-14) % Eos % (Auto) (2-4) % Baso % (Auto) (0-2) % Neut # (Auto) (6773-3661) /uL Lymph # (Auto) (6795-0214) /uL [place] # (Auto) (0-900) /uL Eos # (Auto) (0-450) /uL Baso # (Auto) (0-100) /uL PT (10.1-12.7) SECONDS INR (0.9-1.3) ABG pH (7.35-7.45) ABG pCO2 (35-45) mmHg ABG pO2 (80-100) mmHg ABG HCO3 (22-26) mmol/L ABG Total CO2 (21-31) mmol/L ABG O2 Saturation (95-100) % ABG Base Excess (-2-2) mmol/L FiO2 Sodium 148 H (137-145) mmol/L Potassium 3.5 (3.4-5.1) mmol/L Chloride 110 H (98-107) mmol/L Carbon Dioxide 27 (22-32) mmol/L BUN 10 (9-20) mg/dL Creatinine 0.80 (0.66-1.25) mg/dL Estimated GFR > 60.0 (>60) mL/min BUN/Creatinine Ratio 12.5 (6-22) Glucose 85 (70-100) mg/dL Calcium 8.2 L (8.4-10.2) mg/dL Magnesium 1.6 (1.6-2.3) mg/dL Total Bilirubin 0.2 (0.2-1.3) mg/dL Conjugated Bilirubin 0.0 (0.0-0.3) md/dL Unconjugated Bilirubin 0.2 (0.0-1.1) mg/dL AST 51 (17-59) IU/L ALT 36 (21-72) IU/L Alkaline Phosphatase 49 (38-126) U/L Total Protein 6.2 L (6.3-8.2) g/dL Albumin 3.6 (3.5-5.0) g/dL Globulin 2.6 (1.7-4.1) g/dL Albumin/Globulin Ratio 1.4 (1.0-2.8) Lipase 101 (23-300) U/L Urine Opiates Screen Negative (Negative) Ur Oxycodone Screen Negative (Negative) Urine Methadone Screen Negative (Negative) Ur Barbiturates Screen Negative (Negative) U Tricyclic Antidepress Negative (Negative) Ur Phencyclidine Scrn Negative (Negative) Ur Amphetamines Screen Negative (Negative) U Methamphetamines Scrn Negative (Negative) Ur MDMA Scrn (Ecstasy) Negative (Negative) U Benzodiazepines Scrn Negative (Negative) Urine Cocaine Screen Negative (Negative) U Marijuana (THC) Screen Positive H (Negative) Ethyl Alcohol 393 Cancelled mg/dL Point of Care Testing Glucose POC 84 ABG Data ABG results: 7.422, CO2 of 39.5, PaO2 of 181, bicarb of 25. Interpretation: Normal ABG. Imaging Data Chest x-ray: Radiologist's impression: [address] [address] XRay Report Signed Patient: Abhinav Herr WMR#: [id number] : 1990Acct:[id number] Age/Sex: 28 / MDate of Service: 09/01/18 Loc: ED Accession Number: [id number] Procedure: XR chest 1V Ordering Provider: Valentina Gandhi D.O. PROCEDURE: XR CHEST 1V INDICATIONS: post intubation/etoh TECHNIQUE: One view of the chest was acquired. COMPARISON: [facility], CR, XR CHEST 1V, 08/31/2018, 17:06. [facility], CR, XR CHEST 1V, 04/02/2018, 16:50. [facility], CR, XR CHEST 1V, 03/24/2018, 18:07. [facility], CR, XR CHEST 1V, 03/03/2018, 22:42. FINDINGS: Surgical changes and devices: Endotracheal tube tip projects over the superior trachea between the clavicular heads, approximately 5 cm above the matthew. This is similar to comparison exam of 08/31/18 Lungs and pleura: There is prominence of pulmonary vasculature. No focal air space disease is identified. No pleural effusions or pneumothorax. Mediastinum: Mediastinal contours appear normal. Heart size is normal. Bones and chest wall: No suspicious bony lesions. Overlying soft tissues appear unremarkable. IMPRESSION: Endotracheal tube tip projects over the superior trachea between the clavicular heads, approximately 5 cm above the matthew. Dictated by: Chris Stern M.D. on 09/01/2018 at 14:11 Approved by: Chris Stern M.D. on 09/01/2018 at 14:16 CT scan - head: Radiologist's impression: [place] [address] CT Scan Report Signed Patient: Abhinav Herr WMR#: [id number] : 1990Acct:[id number] Age/Sex: MDate of Service: 09/01/18 Loc: ED Accession Number: [id number] Procedure: CT head/brain wo con Ordering Provider: Valentina Gandhi D.O. PROCEDURE: CT CERVICAL SPINE WO CON INDICATIONS: found on ground, etoh, abrasion head TECHNIQUE: Noncontrast 3 mm thick sections acquired from the skull base to the T4 level. Sagittal and coronal reformats were then constructed. For radiation dose reduction, the following was used: automated exposure control, adjustment of mA and/or kV according to patient size. COMPARISON: [facility], CT, CT CERVICAL SPINE WO CON, 07/09/2018, 19:19. FINDINGS: Image quality: Excellent. Bones: No fractures or dislocations. Visualized superior ribs are intact. Soft tissues: Prevertebral soft tissues are normal in thickness. No paravertebral hematomas. No apical pneumothoraces. Patient is intubated, ET tube tip is above the matthew. NG tube tip is also seen. IMPRESSION: No significant changes from previous study. No acute cervical spine fracture or spondylolisthesis. Dictated by: Addy Alex M.D. on 09/01/2018 at 14:42 Approved by: Addy Alex M.D. on 09/01/2018 at 14:[address]: Radiologist's impression: [facility] DATE TYPE STATUS AUTHOR Rhonda 09/01/18 14:04 Libby Velazco 09/01/18 14:04 Addy Alex 09/01/18 13:54 Chris Stern 08/31/18 17:12 Josse Grubbs 07/09/18 19:15 Addy Alex 07/09/18 19:15 Addy Alex 04/02/18 17:43 04/02/18 16:44 Zonia Porter 03/27/18 15:41 Silvio Jones 03/24/18 19:27 03/24/18 18:03 Josse Grubbs 03/19/18 12:12 03/04/18 00:47 03/03/18 22:38 Josse Grubbs 03/03/18 22:36 Josse Grubbs 03/03/18 22:36 Josse Grubbs 02/15/18 14:37 02/15/18 12:31 Yamil Montano 02/15/18 12:27 Yamil Montano 01/07/18 14:54 Gregory Hawkins 01/05/18 17:00 Silvio Jones 01/04/18 17:00 Serna,Muneepatti 01/04/18 00:00 Serna,Muneepatti 01/03/18 17:00 Serna,Muneer 01/03/18 04:39 Josse Grubbs 01/03/18 03:36 Josse Grubbs 01/02/18 14:37 01/02/18 13:38 Silvio Jones 10/22/17 00:13 10/21/17 22:23 Josse Grubbs 10/21/17 22:23 Vera Wan Brandon W 28, 1990 ADM IN, ICU 104 -1 180cm 69.4kg BMI: 21.4kg/m? Search Chart THROAT SWELLING/HIVES LEG SWELLING DYSTONIA NAUSEA/GI DISTRESS ONSET 0610/28/15 10/28/15 10/28/15 10/28/15 04/30/16 04/30/16 04/30/16 10/05/16 03/27/17 04/29/17 Today 17:30 Abhinav Herr 28 M [address] [address] [address] Scan Report Signed Patient: Abhinav Herr WMR#: [id number] : 1990Acct:[id number] Age/Sex: 28 / MDate of Service: 09/01/18 Loc: ED Accession Number: [id number] Procedure: CT cervical spine wo con Ordering Provider: Valentina Gandhi D.O. PROCEDURE: CT HEAD/BRAIN WO CON INDICATIONS: found on ground, etoh hx, abrasion head TECHNIQUE: Noncontrast 4.5 mm thick angled axial sections acquired from the foramen magnum to the vertex, with coronal and sagittal reformats. For radiation dose reduction, the following was used: automated exposure control, adjustment of mA and/or kV according to patient size. COMPARISON: [facility], CT, CT HEAD/BRAIN WO CON, 07/09/2018, 19:19. FINDINGS: Image quality: Excellent. CSF spaces: Basal cisterns are patent. No extra-axial fluid collections. Ventricles are normal in size and shape. Brain: No midline shift. No intracranial masses or hemorrhage. Dey-white matter interface is normal. Skull and face: Calvarium and visualized facial bones are intact, without suspicious lesions. Sinuses: Visualized sinuses demonstrate minimal right maxiillary sinus mucosal thickening. IMPRESSION: No acute intracranial process. Dictated by: Libby Velazco M.D. on 09/01/2018 at 14:32 Approved by: Libby Velazco M.D. on 09/01/2018 at 14:40 ECG Data Attestation: I personally reviewed and interpreted this ECG as follows: Interpretation: sinus rhythm, rate of 61 P are 146 QRS 100 QTC of 399. No significant ST changes. MDM Narrative Medical decision making narrative: Patient's head CT, C-spine and chest x-ray show no acute changes. ET tube is slightly high but unable to really advance any lower which is likely secondary to some stenosis that patient has probably started to develop from recurrent intubation and self extubation. ABG shows patient is oxygenating well with no acute changes. Labs show hemoglobin of 13 which appears fairly stable, no acute changes, sodium is 147 with potassium at 3.3 and a chloride of 112. No other major electrolyte abnormalities Urine tox is positive for THC, alcohol is 393. Spoke with Dr. Ruelas initially and then Charlee GALEANA for the hospitalist. Patient is currently sedated on propofol, imaging shows no acute changes. UDS is only positive for THC as well as some alcohol at 390. The rest the patient's blood work and ABG do not show any changes that should cause his altered mental status other than his alcohol. Discharge Plan Departure Patient Disposition: Admitted As Inpatient Clinical Impression: Altered mental status, Alcohol intoxication Discharge Date/Time: 09/01/18 17:00 Interventions: ED Discharge Assessment Last Done: 09/01/18 17:25 Admit Date/Time: 09/01/18 16:02 Admit Provider: Kayla Ruelas
[2018-09-01] MEDS: LORazepam 2 MG/ML SYRINGE IV (14:00)
--- NOTE | 2018-09-01 14:00 | ED_ITS ---
HPI - Altered Mental Status General Chief Complaint: Unresponsive Stated Complaint: Unresponsive, intubated, found down at [facility] Time Seen by Provider: 09/01/18 13:53 Source: EMS and old records reviewed Mode of arrival: EMS Limitations: altered mental status History of Present Illness HPI narrative: This is a 28-year-old male who comes to the emergency department with altered mental status. He was found behind the local [employer] by the back door passed out with a bottle vodka that was about 3/4 full. Patient is well known to the department for recurrent intubations because of alcohol intoxication. Patient did not have a gag reflex in the field. He had abrasion on his forehead. He was actually here yesterday and admitted to the ICU. Patient was intubated in the field with succinate ill and ketamine. Placed in a C-collar. No other obvious signs of trauma were noted. Related Data Home Medications Medication Instructions Recorded Confirmed Unobtainable 03/19/18 09/01/18 Allergies Allergy/AdvReac Type Severity Reaction Status Date / Time shrimp [SHRIMP] Allergy Severe THROAT Verified 09/01/18 13:57 SWELLING/HIVES diazepam [From VALIUM] Allergy Intermediate LEG Verified 09/01/18 13:57 SWELLING haloperidol [From HALDOL] Allergy Unknown DYSTONIA Verified 09/01/18 13:57 naproxen [NAPROXEN] AdvReac Mild NAUSEA/GI Verified 09/01/18 13:57 DISTRESS Review of Systems Review of Systems ROS Unobtainable: Unobtainable due to mental status/LOC Exam Narrative Exam Narrative: GEN: well nourished, well appearing male, intubated and unresponsive HEENT: Atraumatic, pupils are equal round reactive to light, nares are clear, TMs are clear with no fluid/no hemotympanum or blood,, there is no conjunctival pallor. The patient is intubated with a 7 ETT 24 @ the teeth. HEART: Regular rate and rhythm without murmur, clicks, rubs. Pulses are equal in upper and lower extremities LUNGS:Lungs clear to auscultation, no wheezes, rales, crackles, chest moves symmetrically with BVM. ABD:bowel sounds normal, soft, non-tender, nondistended, no guarding, rebound, rigidity, no masses noted, no hepatosplenomegaly MSCL: Non-tender, no muscle atrophy NEURO:CN 2-12 intact, sensation normal. Intubated. Initial Vital Signs Initial Vital Signs: Vital Signs Temperature 97.1 F L 09/01/18 13:51 Pulse Rate 79 09/01/18 13:51 Respiratory Rate 15 09/01/18 13:51 Blood Pressure 140/96 H 09/01/18 13:51 Pulse Oximetry 99 09/01/18 13:51 Scores GCS [place] coma scale eye opening: None Izzy coma scale verbal response: None [place] coma scale motor response: None [place] coma scale total score: 3 Course Orders Ordered: ED Orders 09/01/18 13:54 XR chest 1V Stat 09/01/18 14:04 CT cervical spine wo con Stat CT head/brain wo con Stat 09/01/18 14:20 EKG-12 Lead Stat 09/01/18 14:26 Arterial Blood Gas Stat 09/01/18 14:39 Complete Blood Count AUTO DIFF Stat Comprehensive Metabolic Panel Stat Ethanol (ETOH) Stat Hepatic (Liver) Panel Stat Lipase Stat Magnesium Stat Prothrombin Time INR Stat 09/01/18 15:10 Urine Drug Screen, Rapid Stat 09/01/18 15:21 Ventilator Order 09/01/18 19:34 Consult to Dietitian, Adult Routine Consult to [employer] Head Routine 09/02/18 06:00 Complete Blood Count AUTO DIFF Stat Comprehensive Metabolic Panel Stat Magnesium Stat Magnesium Sulfate 2 gm/ Folic Acid 1 mg/ Thiamine HCl 100 mg / Multivitamins 10 ml/ Sodium Chloride 1,015.2 mls @ 75 mls/hr IV NOW ONE Stop: 09/02/18 03:25 Last Infusion: 09/01/18 17:00 Dose: 125 mls/hr Admin: 09/01/18 14:47 Dose: 125 mls/hr Propofol (Propofol) 1,000 mg in 100 mls @ 2.082 mls/hr IV TITRATE HOLGER; Protocol Last Titration: 09/01/18 17:00 Dose: 20 mcg/kg/min, 8.328 mls/hr Titration: 09/01/18 15:44 Dose: 15 mcg/kg/min, 6.246 mls/hr Titration: 09/01/18 15:29 Dose: 10 mcg/kg/min, 4.164 mls/hr Admin: 09/01/18 14:24 Dose: 5 mcg/kg/min, 2.082 mls/hr Dextrose (Dextrose 5% Water) 1,000 mls @ 75 mls/hr IV CONT HOLGER Last Admin: 09/01/18 20:15 Dose: 75 mls/hr Discontinued Medications Lorazepam (Ativan) 2 mg IV NOW ONE Stop: 09/01/18 13:54 Last Admin: 09/01/18 14:00 Dose: 2 mg Vital Signs - 8 hr 09/01/18 13:51 09/01/18 14:30 09/01/18 14:45 Temperature 97.1 F L Pulse Rate 79 64 64 Respiratory Rate 15 15 15 Blood Pressure 140/96 H Blood Pressure [Right Arm] 113/72 Pulse Oximetry 99 100 100 09/01/18 15:00 09/01/18 15:15 09/01/18 15:30 Temperature Pulse Rate 62 65 58 L Respiratory Rate 15 15 15 Blood Pressure Blood Pressure [Right Arm] 101/57 L 113/73 110/72 Pulse Oximetry 100 100 09/01/18 16:15 Temperature Pulse Rate 59 L Respiratory Rate 15 Blood Pressure Blood Pressure [Right Arm] 112/73 Pulse Oximetry 99 MDM - Altered Mental Status Lab Data Attestation: I reviewed the patient's lab results. Result diagrams: 09/01/18 14:39 09/01/18 14:39 Lab Results 09/01/18 09/01/18 09/01/18 Range/Units 14:26 14:39 14:39 WBC 5.5 (4.5-11.0) X10^3/uL RBC 4.20 L (4.5-5.9) X10^6/uL Hgb 13.0 L (13.5-17.5) g/dL Hct 38.3 L (41-53) % MCV 91.1 (80-100) fL MCH 31.0 (26-34) PG MCHC 34.0 (30-36) % RDW 12.9 (11.6-14.8) % Plt Count 127 L (150-400) X10^3/uL Neut % (Auto) 65.8 (50-75) % Lymph % (Auto) 27.9 (25-40) % [place] % (Auto) 5.4 (3-14) % Eos % (Auto) 0.2 L (2-4) % Baso % (Auto) 0.7 (0-2) % Neut # (Auto) 3600 (0587-3332) /uL Lymph # (Auto) 1500 (1905-2294) /uL [place] # (Auto) 300 (0-900) /uL Eos # (Auto) 0 (0-450) /uL Baso # (Auto) 0 (0-100) /uL PT 12.5 (10.1-12.7) SECONDS INR 1.1 (0.9-1.3) ABG pH 7.42 (7.35-7.45) ABG pCO2 39.5 (35-45) mmHg ABG pO2 181 H (80-100) mmHg ABG HCO3 26 (22-26) mmol/L ABG Total CO2 27 (21-31) mmol/L ABG O2 Saturation 100 (95-100) % ABG Base Excess 1.0 (-2-2) mmol/L FiO2 35 Sodium (137-145) mmol/L Potassium (3.4-5.1) mmol/L Chloride (98-107) mmol/L Carbon Dioxide (22-32) mmol/L BUN (9-20) mg/dL Creatinine (0.66-1.25) mg/dL Estimated GFR (>60) mL/min BUN/Creatinine Ratio (6-22) Glucose (70-100) mg/dL Calcium (8.4-10.2) mg/dL Magnesium (1.6-2.3) mg/dL Total Bilirubin (0.2-1.3) mg/dL Conjugated Bilirubin (0.0-0.3) md/dL Unconjugated Bilirubin (0.0-1.1) mg/dL AST (17-59) IU/L ALT (21-72) IU/L Alkaline Phosphatase (38-126) U/L Total Protein (6.3-8.2) g/dL Albumin (3.5-5.0) g/dL Globulin (1.7-4.1) g/dL Albumin/Globulin Ratio (1.0-2.8) Lipase (23-300) U/L Urine Opiates Screen (Negative) Ur Oxycodone Screen (Negative) Urine Methadone Screen (Negative) Ur Barbiturates Screen (Negative) U Tricyclic Antidepress (Negative) Ur Phencyclidine Scrn (Negative) Ur Amphetamines Screen (Negative) U Methamphetamines Scrn (Negative) Ur MDMA Scrn (Ecstasy) (Negative) U Benzodiazepines Scrn (Negative) Urine Cocaine Screen (Negative) U Marijuana (THC) Screen (Negative) Ethyl Alcohol mg/dL 09/01/18 09/01/18 09/01/18 Range/Units 14:39 14:39 15:10 WBC (4.5-11.0) X10^3/uL RBC (4.5-5.9) X10^6/uL Hgb (13.5-17.5) g/dL Hct (41-53) % MCV (80-100) fL MCH (26-34) PG MCHC (30-36) % RDW (11.6-14.8) % Plt Count (150-400) X10^3/uL Neut % (Auto) (50-75) % Lymph % (Auto) (25-40) % [place] % (Auto) (3-14) % Eos % (Auto) (2-4) % Baso % (Auto) (0-2) % Neut # (Auto) (1165-9880) /uL Lymph # (Auto) (7731-1216) /uL [place] # (Auto) (0-900) /uL Eos # (Auto) (0-450) /uL Baso # (Auto) (0-100) /uL PT (10.1-12.7) SECONDS INR (0.9-1.3) ABG pH (7.35-7.45) ABG pCO2 (35-45) mmHg ABG pO2 (80-100) mmHg ABG HCO3 (22-26) mmol/L ABG Total CO2 (21-31) mmol/L ABG O2 Saturation (95-100) % ABG Base Excess (-2-2) mmol/L FiO2 Sodium 148 H (137-145) mmol/L Potassium 3.5 (3.4-5.1) mmol/L Chloride 110 H (98-107) mmol/L Carbon Dioxide 27 (22-32) mmol/L BUN 10 (9-20) mg/dL Creatinine 0.80 (0.66-1.25) mg/dL Estimated GFR > 60.0 (>60) mL/min BUN/Creatinine Ratio 12.5 (6-22) Glucose 85 (70-100) mg/dL Calcium 8.2 L (8.4-10.2) mg/dL Magnesium 1.6 (1.6-2.3) mg/dL Total Bilirubin 0.2 (0.2-1.3) mg/dL Conjugated Bilirubin 0.0 (0.0-0.3) md/dL Unconjugated Bilirubin 0.2 (0.0-1.1) mg/dL AST 51 (17-59) IU/L ALT 36 (21-72) IU/L Alkaline Phosphatase 49 (38-126) U/L Total Protein 6.2 L (6.3-8.2) g/dL Albumin 3.6 (3.5-5.0) g/dL Globulin 2.6 (1.7-4.1) g/dL Albumin/Globulin Ratio 1.4 (1.0-2.8) Lipase 101 (23-300) U/L Urine Opiates Screen Negative (Negative) Ur Oxycodone Screen Negative (Negative) Urine Methadone Screen Negative (Negative) Ur Barbiturates Screen Negative (Negative) U Tricyclic Antidepress Negative (Negative) Ur Phencyclidine Scrn Negative (Negative) Ur Amphetamines Screen Negative (Negative) U Methamphetamines Scrn Negative (Negative) Ur MDMA Scrn (Ecstasy) Negative (Negative) U Benzodiazepines Scrn Negative (Negative) Urine Cocaine Screen Negative (Negative) U Marijuana (THC) Screen Positive H (Negative) Ethyl Alcohol 393 Cancelled mg/dL Point of Care Testing Glucose POC 84 ABG Data ABG results: 7.422, CO2 of 39.5, PaO2 of 181, bicarb of 25. Interpretation: Normal ABG. Imaging Data Chest x-ray: Radiologist's impression: [address] [address] XRay Report Signed Patient: Abhinav Herr WMR#: [id number] : 1990Acct:[id number] Age/Sex: 28 / MDate of Service: 09/01/18 Loc: ED Accession Number: [id number] Procedure: XR chest 1V Ordering Provider: Valentina Gandhi D.O. PROCEDURE: XR CHEST 1V INDICATIONS: post intubation/etoh TECHNIQUE: One view of the chest was acquired. COMPARISON: [facility], CR, XR CHEST 1V, 08/31/2018, 17:06. [facility], CR, XR CHEST 1V, 04/02/2018, 16:50. [facility], CR, XR CHEST 1V, 03/24/2018, 18:07. [facility], CR, XR CHEST 1V, 03/03/2018, 22:42. FINDINGS: Surgical changes and devices: Endotracheal tube tip projects over the superior trachea between the clavicular heads, approximately 5 cm above the matthew. This is similar to comparison exam of 08/31/18 Lungs and pleura: There is prominence of pulmonary vasculature. No focal air space disease is identified. No pleural effusions or pneumothorax. Mediastinum: Mediastinal contours appear normal. Heart size is normal. Bones and chest wall: No suspicious bony lesions. Overlying soft tissues appear unremarkable. IMPRESSION: Endotracheal tube tip projects over the superior trachea between the clavicular heads, approximately 5 cm above the matthew. Dictated by: Chris Stern M.D. on 09/01/2018 at 14:11 Approved by: Chris Stern M.D. on 09/01/2018 at 14:16 CT scan - head: Radiologist's impression: [place] [address] CT Scan Report Signed Patient: Abhinav Herr WMR#: [id number] : 1990Acct:[id number] Age/Sex: MDate of Service: 09/01/18 Loc: ED Accession Number: [id number] Procedure: CT head/brain wo con Ordering Provider: Valentina Gandhi D.O. PROCEDURE: CT CERVICAL SPINE WO CON INDICATIONS: found on ground, etoh, abrasion head TECHNIQUE: Noncontrast 3 mm thick sections acquired from the skull base to the T4 level. Sagittal and coronal reformats were then constructed. For radiation dose reduction, the following was used: automated exposure control, adjustment of mA and/or kV according to patient size. COMPARISON: [facility], CT, CT CERVICAL SPINE WO CON, 07/09/2018, 19:19. FINDINGS: Image quality: Excellent. Bones: No fractures or dislocations. Visualized superior ribs are intact. Soft tissues: Prevertebral soft tissues are normal in thickness. No paravertebral hematomas. No apical pneumothoraces. Patient is intubated, ET tube tip is above the matthew. NG tube tip is also seen. IMPRESSION: No significant changes from previous study. No acute cervical spine fracture or spondylolisthesis. Dictated by: Addy Alex M.D. on 09/01/2018 at 14:42 Approved by: Addy Alex M.D. on 09/01/2018 at 14:[address]: Radiologist's impression: [facility] DATE TYPE STATUS AUTHOR Rhonda 09/01/18 14:04 Libby Velazco 09/01/18 14:04 Addy Alex 09/01/18 13:54 Chris Stern 08/31/18 17:12 Josse Grubbs 07/09/18 19:15 Addy Alex 07/09/18 19:15 Addy Alex 04/02/18 17:43 04/02/18 16:44 Zonia Porter 03/27/18 15:41 Silvio Jones 03/24/18 19:27 03/24/18 18:03 Josse Grubbs 03/19/18 12:12 03/04/18 00:47 03/03/18 22:38 Josse Grubbs 03/03/18 22:36 Josse Grubbs 03/03/18 22:36 Josse Grubbs 02/15/18 14:37 02/15/18 12:31 Yamil Montano 02/15/18 12:27 Yamil Montano 01/07/18 14:54 Gregory Hawkins 01/05/18 17:00 Silvio Jones 01/04/18 17:00 Serna,Muneepatti 01/04/18 00:00 Serna,Muneepatti 01/03/18 17:00 Serna,Muneer 01/03/18 04:39 Josse Grubbs 01/03/18 03:36 Josse Grubbs 01/02/18 14:37 01/02/18 13:38 Silvio Jones 10/22/17 00:13 10/21/17 22:23 Josse Grubbs 10/21/17 22:23 Vera Wan Brandon W 28, 1990 ADM IN, ICU 104 -1 180cm 69.4kg BMI: 21.4kg/m? Search Chart THROAT SWELLING/HIVES LEG SWELLING DYSTONIA NAUSEA/GI DISTRESS ONSET 0610/28/15 10/28/15 10/28/15 10/28/15 04/30/16 04/30/16 04/30/16 10/05/16 03/27/17 04/29/17 Today 17:30 Abhinav Herr 28 M [address] [address] [address] Scan Report Signed Patient: Abhinav Herr WMR#: [id number] : 1990Acct:[id number] Age/Sex: 28 / MDate of Service: 09/01/18 Loc: ED Accession Number: [id number] Procedure: CT cervical spine wo con Ordering Provider: Valentina Gandhi D.O. PROCEDURE: CT HEAD/BRAIN WO CON INDICATIONS: found on ground, etoh hx, abrasion head TECHNIQUE: Noncontrast 4.5 mm thick angled axial sections acquired from the foramen magnum to the vertex, with coronal and sagittal reformats. For radiation dose reduction, the following was used: automated exposure control, adjustment of mA and/or kV according to patient size. COMPARISON: [facility], CT, CT HEAD/BRAIN WO CON, 07/09/2018, 19:19. FINDINGS: Image quality: Excellent. CSF spaces: Basal cisterns are patent. No extra-axial fluid collections. Ventricles are normal in size and shape. Brain: No midline shift. No intracranial masses or hemorrhage. Dey-white matter interface is normal. Skull and face: Calvarium and visualized facial bones are intact, without suspicious lesions. Sinuses: Visualized sinuses demonstrate minimal right maxiillary sinus mucosal thickening. IMPRESSION: No acute intracranial process. Dictated by: Libby Velazco M.D. on 09/01/2018 at 14:32 Approved by: Libby Velazco M.D. on 09/01/2018 at 14:40 ECG Data Attestation: I personally reviewed and interpreted this ECG as follows: Interpretation: sinus rhythm, rate of 61 P are 146 QRS 100 QTC of 399. No significant ST changes. MDM Narrative Medical decision making narrative: Patient's head CT, C-spine and chest x-ray show no acute changes. ET tube is slightly high but unable to really advance any lower which is likely secondary to some stenosis that patient has probably started to develop from recurrent intubation and self extubation. ABG shows patient is oxygenating well with no acute changes. Labs show hemoglobin of 13 which appears fairly stable, no acute changes, sodium is 147 with potassium at 3.3 and a chloride of 112. No other major electrolyte abnormalities Urine tox is positive for THC, alcohol is 393. Spoke with Dr. Ruelas initially and then Chralee GALAENA for the hospitalist. Patient is currently sedated on propofol, imaging shows no acute changes. UDS is only positive for THC as well as some alcohol at 390. The rest the patient's blood work and ABG do not show any changes that should cause his altered mental status other than his alcohol. Discharge Plan Departure Patient Disposition: Admitted As Inpatient Clinical Impression: Altered mental status, Alcohol intoxication Discharge Date/Time: 09/01/18 17:00 Interventions: ED Discharge Assessment Last Done: 09/01/18 17:25 Admit Date/Time: 09/01/18 16:02 Admit Provider: Kayla Ruelas
--- NOTE | 2018-09-01 14:04 | DI.CT.S_ITS ---
PROCEDURE: CT CERVICAL SPINE WO CON INDICATIONS: found on ground, etoh, abrasion head TECHNIQUE: Noncontrast 3 mm thick sections acquired from the skull base to the T4 level. Sagittal and coronal reformats were then constructed. For radiation dose reduction, the following was used: automated exposure control, adjustment of mA and/or kV according to patient size. COMPARISON: [facility], CT, CT CERVICAL SPINE WO CON, 07/09/2018, 19:19. FINDINGS: Image quality: Excellent. Bones: No fractures or dislocations. Visualized superior ribs are intact. Soft tissues: Prevertebral soft tissues are normal in thickness. No paravertebral hematomas. No apical pneumothoraces. Patient is intubated, ET tube tip is above the matthew. NG tube tip is also seen. IMPRESSION: No significant changes from previous study. No acute cervical spine fracture or spondylolisthesis. Dictated by: Addy Alex M.D. on 09/01/2018 at 14:42 Approved by: Addy Alex M.D. on 09/01/2018 at 14:43
--- NOTE | 2018-09-01 14:04 | DI.CT.S_ITS ---
PROCEDURE: CT HEAD/BRAIN WO CON INDICATIONS: found on ground, etoh hx, abrasion head TECHNIQUE: Noncontrast 4.5 mm thick angled axial sections acquired from the foramen magnum to the vertex, with coronal and sagittal reformats. For radiation dose reduction, the following was used: automated exposure control, adjustment of mA and/or kV according to patient size. COMPARISON: [facility], CT, CT HEAD/BRAIN WO CON, 07/09/2018, 19:19. FINDINGS: Image quality: Excellent. CSF spaces: Basal cisterns are patent. No extra-axial fluid collections. Ventricles are normal in size and shape. Brain: No midline shift. No intracranial masses or hemorrhage. Dey-white matter interface is normal. Skull and face: Calvarium and visualized facial bones are intact, without suspicious lesions. Sinuses: Visualized sinuses demonstrate minimal right maxiillary sinus mucosal thickening. IMPRESSION: No acute intracranial process. Dictated by: Libby Velazco M.D. on 09/01/2018 at 14:32 Approved by: Libby Velazco M.D. on 09/01/2018 at 14:40
[2018-09-01] MEDS: PROPOFOL 1,000 MG/100 ML VIAL 2.082 MG IV (14:24)
[2018-09-01] MEDS: MAGNESIUM SULFATE 2 GM, FOLIC ACID 1 MG, THIAMINE 100 MG, MULTIVITAMIN 10 ML in SODIUM ... IV (14:47)
[2018-09-01 14:54] LABS: Add Manual Diff / Slide Review NO; Basophils Absolute Auto 0 /uL (0-100); Basophils Percent Auto 0.7 % (0-2); Eosinophils Absolute Auto 0 /uL (0-450); Eosinophils Percent Auto 0.2 % (2-4); Hematocrit 38.3 % (41-53); Lymphocytes Absolute Auto 1500 /uL (1100-4500); Lymphocytes Percent Auto 27.9 % (25-40); Mean Corpuscular Volume 91.1 fL (80-100); Monocytes Absolute Auto 300 /uL (0-900); Monocytes Percent Auto 5.4 % (3-14); Neutrophils Absolute Auto 3600 /uL (1500-7000); Neutrophils Percent Auto 65.8 % (50-75); Platelet Count 127 X10^3/uL (150-400); Red Cell Distribution Width 12.9 % (11.6-14.8); White Blood Cell Count 5.5 X10^3/uL (4.5-11.0)
[2018-09-01 14:57] LABS: INR 1.1 (0.9-1.3); Prothrombin Time 12.5 SECONDS (10.1-12.7)
[2018-09-01 15:07] LABS: HCO3 ABG 26 mmol/L (22-26); Oxygen Saturation ABG 100 % (95-100); PCO2 ABG 39.5 mmHg (35-45); PO2 ABG 181 mmHg (80-100); TCO2 ABG 27 mmol/L (21-31); pH ABG 7.42 (7.35-7.45)
[2018-09-01 15:08] LABS: Fractionated Inspired Oxygen 35
[2018-09-01 15:24] LABS: Urine Amphetamines Negative (Negative); Urine Barbiturates Negative (Negative); Urine Benzodiazepines Negative (Negative); Urine Cocaine Negative (Negative); Urine MDMA Negative (Negative); Urine Methadone Negative (Negative); Urine Methamphetamines Negative (Negative); Urine Morphine/Opi cutoff 2000 Negative (Negative); Urine Oxycodone Negative (Negative); Urine Phencyclidine Negative (Negative); Urine Tetrahydrocannabinol Positive (Negative); Urine Tricyclic Antidepressant Negative (Negative)
--- NOTE | 2018-09-01 15:30 | PC.NURSE ---
Patient having some restlessness in his lower legs. Still not opening eyes to voice or stimulation. Increased propofol drip to 10 mcg/kg/min per Dr. Gandhi.
[2018-09-01 15:43] LABS: Alanine Aminotransferase 36 IU/L (21-72); Albumin 3.6 g/dL (3.5-5.0); Albumin Globulin Ratio 1.4 (1.0-2.8); Alkaline Phosphatase 49 U/L (38-126); Aspartate Aminotransferase 51 IU/L (17-59); BUN Creatinine Ratio 12.5 (6-22); Bilirubin Total 0.2 mg/dL (0.2-1.3); Bilirubin Unconjugated 0.2 mg/dL (0.0-1.1); Blood Urea Nitrogen 10 mg/dL (9-20); Calcium 8.2 mg/dL (8.4-10.2); Carbon Dioxide 27 mmol/L (22-32); Chloride 110 mmol/L (98-107); Estimated Glomerular Filt Rate > 60.0 mL/min (>60); Globulin 2.6 g/dL (1.7-4.1); Glucose 85 mg/dL (70-100); HEMOLYSIS < 15 (0-50); Lipase 101 U/L (23-300); Magnesium 1.6 mg/dL (1.6-2.3); Potassium 3.5 mmol/L (3.4-5.1); Sodium 148 mmol/L (137-145); Total Protein 6.2 g/dL (6.3-8.2)
[2018-09-01 15:51] LABS: Ethanol (ETOH) 393 mg/dL
--- NOTE | 2018-09-01 18:43 | CM.DANOTE ---
Patient is a 28 year old male who was admitted to the ER and then ICU on 09/01/18 for Unresponsive, found down, intubated. Patient has [facility] and [facility] for insurance and his PCP is not listed. EMR was reviewed. Per ER MD, pt with ETOH and was admitted yesterday 08/31/18 for similar and left AMA same day before being admitted again today. Pt has a long hx of ETOH abuse and medical complications from use requiring multiple intubations with Involuntary Placement due to [place]?s Law and inability to maintain sobriety despite his significant medical harm to self. Pt also with a hx of suicidal ideation and intent. GHAZALA called [facility] for an MIS Check and they confirm that the Pt has 3 Involuntary Placements for treatment with [facility] in July [address], [facility] in Dec 2017, and [facility] Jan 2018. Patient very recently discharged home from his most recent Involuntary Placement at [facility] on August 26, 2018. Patient currently not enrolled in outpt treatment and no Least Restrictive Orders in place at this time. Pt had at least 4 ER/ICU admits for ETOH/MH in 2017, 21 visits in 2018, and 4 visits so far this year 2018. Pt currently intubated and receiving Propofol and unable to participate in bedside assessment by GHAZALA. GHAZALA called pt?s Cam at listed phone number who was tearful and at a complete loss of how to best support the pt and keep him safe. Cam confirms that the pt was in [facility] Involuntary Treatment from Jul 11 2018 until his discharge home on August 26. Pt was discharged home with new medications for his bipolar and stabilization to help with reducing risk of relapse but pt has not been compliant with medications. Cam states that pt has been drinking since his discharge from In[facility] even with her threats of divorce. Pt still resides with Cam in [place], their young daughter, and pt?s mother Alta. Cam states that she has taken the pt off the lease as he continues to not follow the rules of no drunken behavior on the premises and high risk of being evicted. Cam confirms that the pt has multiple legal infractions including assault in the 1st degree against herself, and a few pending felonies for stealing alcohol from multiple locations and had court ordered treatment but pt met those requirements by his recent Inpt Tx in [place]. SW inquired if Cam has considered or pursued a No Contact Order due to her current concerns of his behavior and safety of herself and their daughter and Cam states she is beginning to consider it but has not pursued it as of this time. Cam is seeking any suggestions on how to best deal with the pt?s inability to maintain any sobriety even with his medical complications and legal ramifications. SW called [place] [employer] non emergent line [phone] just to inquire about possible suggestions for the family and potential for a Care Conference involving Community Resources like [facility] since they are typically involved in completing assessment to deem pt as meeting criteria for Involuntary Placement. One recommendation for family was a No Contact Order if they are agreeable as pt is not typically able to participate in the household in a safe way and then to contact the Police Dept Admin if a community meeting is deemed to be important at this time. GHAZALA spoke with RN and updated that pt will need to be assessed bedside by SW for likely need of DMHP assessment for Involuntary Placement pending pt interest in treatment. Pt has hx of attempting to leave AMA and SW requested RN call [facility] with provided number to request DMHP if pt attempts to leave and then likely need to call [place] PD if pt does leave the hospital. Plan: SW to follow closely in the morning to determine if pt medically appropriate for bedside assessment to determine voluntary vs Involuntary placement for treatment due to pt?s continued inability to maintain medical safety from ETOH even with completion of Inpt CD tx on August 26. SW to coordinate with Administration regarding possible need of Care Conference/Community Meeting for pt?s ongoing high risk of and involvement of [facility]. KANDI Thompson Discharge Planning/Care Management CM Discharge Assessment Start: 09/01/18 18:32 Freq: Status: Active Protocol: Document 09/01/18 18:33 BF (Rec: 09/01/18 18:42 BF [id number]) Discharge Planning Assessment Assigned Printing Supervisor KANDI Britt Advance Directives? No Advance Directives on File No History Provided By Patient Medical Record Has Patient been admitted in last 30 Yes days? Comment Patient was admitted yesterday 08/31/18 for ETOH and left AMA from ICU. Household Members spouse family children Comment Patient lives with , young daughter, and mother in [place] Type of transporation used prior to Relies on Others admit Independent with ADL's No: high ongoing intoxication Is patient alert and oriented? No: Currently intubated and medicated Needs Assistance With Meal Prep Managing Medications Home Chores / Shopping Caregiver for Another No: has young daughter at home but not involved in parenting Patient/Family Preference Drug/Alcohol Rehab Comment Multiple D/A stays, multiple relapses once home. Barriers to Discharge Yes Comment Unable to remain sober. Constant suicidal ideation/ behaviors Discharge Plan Inpatient Rehab Unit Transportation Arrangement Pending Referrals Initiated Other Additional Comment Pt not medically stable for bedside assessment to determine d/c plan of voluntary vs involuntary Review Status In Process Please Provide Date Initial DC 09/01/18 Assessment Was Performed Next Review Type Continued Stay Review
--- NOTE | 2018-09-01 19:38 | P.HP_ITS ---
History of Present Illness Date Patient Seen: 09/01/18 Time Patient Seen: 19:07 Chief complaint: Unresponsive, intubated, found down at [facility] Narrative: The patient is a 28-year-old male with PMH alcohol abuse, dependence disorder, depression, suicidality, eating disorder, seizures secondary to alcohol withdrawal, and low back pain. Patient was brought to the ED on 09/01/2018 in an unresponsive state. Patient was found in the back of local [facility] by staff, per ED note patient was unresponsive with a bottle of vodka that was 3/4 full. Patient is known to have recurrent admissions for alcohol poisoning. Most recent within 24 hours prior to current admission, at that time patient left AMA at approximately 3:00 a.m. EMS found absence of gag reflex in field and consequently intubated him for airway protection. Upon arrival to the ED patient was noted to be in a C-collar. He also had a laceration on left temporal area of the head. CT of the head and cervical spine were unremarkable for acute pathology. Known to have prior history of involuntary commitment under [employer] Law for safety and secure detox. Chart records depicts severe ETOH dependence, marie burrows refractory to treatment. Known to have excessive number of hospitalist admissions for alcohol poisoning. ED Work-Up CT of the head did not reveal acute intracranial pathology. CT of cervical spine was unremarkable for acute fracture and / or spondylolisthesis. No paravertebral hematomas. No apical pneumothoraces. Chest x-ray noted prominence of pulmonary vasculature. No focal airspace disease identified. No pleural effusions or pneumothorax. WBC 5.5 HGB 13 HCT 38.3 PLT 127 NA 148 K 3.5 MG 1.6 CL 110 8.2 CO2 27 BUN 10 CR 0.8 GLU 85 liver enzymes WNL UDS + marijuana EtOH level 393 PT 12.5 INR 1.1 ABG - pH 7.42 pCO2 39.5 pO2 181 HCO3 26 Patient History Medical History Alcoholism (Acute) Depression (Acute) Eating disorder (Acute) Epilepsy (Acute) Low back pain (Acute) Family History Grandfather Type 2 diabetes mellitus without complication, unspecified terminal superintendent insulin use status Grandmother Type 2 diabetes mellitus without complication, unspecified retirement insulin use status Mother Uncomplicated asthma, unspecified asthma severity Sister Uncomplicated asthma, unspecified asthma severity Unknown No problems noted. Social History household members: spouse, family and children Smoking Status: Unknown if ever smoked alcohol intake: current Family & Social History Family History Grandfather Type 2 diabetes mellitus without complication, unspecified terminal superintendent insulin use status Grandmother Type 2 diabetes mellitus without complication, unspecified terminal superintendent insulin use status Mother Uncomplicated asthma, unspecified asthma severity Sister Uncomplicated asthma, unspecified asthma severity Unknown No problems noted. Social History: household members spouse,family,children Safety & Behavioral: Feels Safe in Current Unwilling to Answer Environment Been Physically Hurt or Unwilling to Answer Threatened By a Person Tobacco & Substance use: Tobacco type cannabis/marijuana Smoking Status Unknown if ever smoked alcohol intake current alcohol intake frequency 3 or more drinks per day Substance Use Type marijuana Meds Home Medications Medication Instructions Recorded Confirmed Type Unobtainable 03/19/18 09/01/18 History Allergies Allergy/AdvReac Type Severity Reaction Status Date / Time shrimp [SHRIMP] Allergy Severe THROAT Verified 09/01/18 13:57 SWELLING/HIVES diazepam [From VALIUM] Allergy Intermediate LEG Verified 09/01/18 13:57 SWELLING haloperidol [From HALDOL] Allergy Unknown DYSTONIA Verified 09/01/18 13:57 naproxen [NAPROXEN] AdvReac Mild NAUSEA/GI Verified 09/01/18 13:57 DISTRESS Review of Systems Review of Systems All systems reviewed & are unremarkable except as noted in HPI and below Exam Vital Signs (past 8 hours): - 09/01/18 13:51 09/01/18 14:30 09/01/18 14:45 Temperature 97.1 F L Pulse Rate 79 64 64 Respiratory Rate 15 15 15 Blood Pressure 140/96 H Blood Pressure [Right Arm] 113/72 Pulse Oximetry 99 100 100 09/01/18 15:00 09/01/18 15:15 09/01/18 15:30 Temperature Pulse Rate 62 65 58 L Respiratory Rate 15 15 15 Blood Pressure Blood Pressure [Right Arm] 101/57 L 113/73 110/72 Pulse Oximetry 100 100 09/01/18 16:15 Temperature Pulse Rate 59 L Respiratory Rate 15 Blood Pressure Blood Pressure [Right Arm] 112/73 Pulse Oximetry 99 Oxygen Delivery Method Mechanical Ventilation Narrative Exam Narrative: Constitutional: no acute distress, intubated and ventilated, tolerating ventilation Neurologic: Sedated with propofol, pupils sluggish Head: Laceration at the left temporal area of the head, no palpable hematoma Eyes: Sluggish, no evidence of periorbital ecchymosis Ears: external ears normal, no evidence of ecchymosis behind the ear Nose: external nose normal, epistaxis Throat: Intubated, ET tube present / intact, bite block present, dry MM Neck: no masses, lymphadenopathy, or JVD Chest / Respiratory: Equal chest rise, CTAB, tolerating ventilation... Settings AC 15 peep 5 FiO2 30% TV 470... OG not hooked to suction, asked RN to place to LIS Heart / CV: S1S2, no murmur, mildly tachycardic- heart rate upper 90s low 100s Abdomen / GI: round, NT, ND, + BS, no organomegaly. Isabel catheter present and to dependent drainage Peripheral / Vascular: somewhat cool to touch, DP and PT pulses palpable, no edema b/l edema of hands 1-2+, adequte pefusion, he is in soft wrist restraints (checked that restraints are not too tight) Musc: Adequate muscle bulk and tone, patient is sedated - exam is limited in regard to ROM Skin: laceration - left temporal aspect of the head, abrasion / bruising left knee (no effusion of the knee noted) Objective Labs Result Diagrams: 09/01/18 14:39 09/01/18 14:39 Labs: Laboratory Results - last 24 hr 09/01/18 09/01/18 09/01/18 14:26 14:39 14:39 WBC 5.5 RBC 4.20 L Hgb 13.0 L Hct 38.3 L MCV 91.1 MCH 31.0 MCHC 34.0 RDW 12.9 Plt Count 127 L Neut % (Auto) 65.8 Lymph % (Auto) 27.9 Carver % (Auto) 5.4 Eos % (Auto) 0.2 L Baso % (Auto) 0.7 Neut # (Auto) 3600 Lymph # (Auto) 1500 Carver # (Auto) 300 Eos # (Auto) 0 Baso # (Auto) 0 PT 12.5 INR 1.1 ABG pH 7.42 ABG pCO2 39.5 ABG pO2 181 H ABG HCO3 26 ABG Total CO2 27 ABG O2 Saturation 100 ABG Base Excess 1.0 FiO2 35 Sodium Potassium Chloride Carbon Dioxide BUN Creatinine Estimated GFR BUN/Creatinine Ratio Glucose Calcium Magnesium Total Bilirubin Conjugated Bilirubin Unconjugated Bilirubin AST ALT Alkaline Phosphatase Total Protein Albumin Globulin Albumin/Globulin Ratio Lipase Urine Opiates Screen Ur Oxycodone Screen Urine Methadone Screen Ur Barbiturates Screen U Tricyclic Antidepress Ur Phencyclidine Scrn Ur Amphetamines Screen U Methamphetamines Scrn Ur MDMA Scrn (Ecstasy) U Benzodiazepines Scrn Urine Cocaine Screen U Marijuana (THC) Screen Ethyl Alcohol 09/01/18 09/01/18 09/01/18 14:39 14:39 15:10 WBC RBC Hgb Hct MCV MCH MCHC RDW Plt Count Neut % (Auto) Lymph % (Auto) Carver % (Auto) Eos % (Auto) Baso % (Auto) Neut # (Auto) Lymph # (Auto) Carver # (Auto) Eos # (Auto) Baso # (Auto) PT INR ABG pH ABG pCO2 ABG pO2 ABG HCO3 ABG Total CO2 ABG O2 Saturation ABG Base Excess FiO2 Sodium 148 H Potassium 3.5 Chloride 110 H Carbon Dioxide 27 BUN 10 Creatinine 0.80 Estimated GFR > 60.0 BUN/Creatinine Ratio 12.5 Glucose 85 Calcium 8.2 L Magnesium 1.6 Total Bilirubin 0.2 Conjugated Bilirubin 0.0 Unconjugated Bilirubin 0.2 AST 51 ALT 36 Alkaline Phosphatase 49 Total Protein 6.2 L Albumin 3.6 Globulin 2.6 Albumin/Globulin Ratio 1.4 Lipase 101 Urine Opiates Screen Negative Ur Oxycodone Screen Negative Urine Methadone Screen Negative Ur Barbiturates Screen Negative U Tricyclic Antidepress Negative Ur Phencyclidine Scrn Negative Ur Amphetamines Screen Negative U Methamphetamines Scrn Negative Ur MDMA Scrn (Ecstasy) Negative U Benzodiazepines Scrn Negative Urine Cocaine Screen Negative U Marijuana (THC) Screen Positive H Ethyl Alcohol 393 Cancelled Assessment & Plan Assessment & Plan narrative: Alcohol poisoning, acute, present on admission, active intent for self harm is undetermined; however, patient does have a history psychiatric illness and poly-substance abuse. - admit to the ICU - ETOH level on presentation 393 w/ unresponsiveness, stupor-like state, and diminished respiratory drive - consult RT, rate protocol, vent management - b/l soft wrist restraints, non-violent, for airway protection - sedation with propofol while intubated, per historical records high tolerance to propofol and difficulty achieving sedation Monitor patient at this time and titrate for a RASS score of -2 (desired), if need arises, we will consider the following medications IV Benadryl, IM Zyprexa, IV fentanyl, and / or valproic acid - banana bag, rate decreased to 75 ml/hr - correct metabolic abnormalities - am labs - CBC, CMP, EtOH level Inability to maintain patency of airway, acute, present on admission, active 2/2 alcohol toxicity. ABG - pH 7.42 pCO2 39.5 pO2 181 HCO3 26 (stable) - status post intubation, in field, for airway protection - consult RT for vent management, rate protocol - concern for aspiration, will check PCT level in am Hypernatremia (mild), acute, present on admission, active - D5W History of seizures in the setting of EtOH withdrawal - seizure precautions - at high risk for seizures in the setting of alcohol toxicity and withdrawal At high risk for self-harm and - consult social work, re: Evaluate patient for involuntary commitment - patient may not leave AMA Full Code. Home medications reviewed and reconciled accordingly. SCDs for VTE prophylaxis. Quality VTE Deep Vein Thrombosis/Pulmonary Embolism Present on Admission: No
[2018-09-01] MEDS: DEXTROSE 5% WATER 1,000 ML 75 ML IV (20:15)
--- NOTE | 2018-09-01 22:41 | PC.NURSE ---
barrera note pt admitted from ER with ventilator, soft restraints, propofol gtt. Propofol initially at 20 mcg/kg/min, but pt reaching toward ETT. Orders for deep sedation. Propofol increased to 25 mcg. Pt has been deeply sedated since.
[2018-09-01] MEDS: PROPOFOL 1,000 MG/100 ML VIAL 10.41 MG IV (23:04)
[2018-09-02] VITALS (16 sets, daily range): BP systolic 89–132; BP diastolic 33–85; PULSE 59–85; RESP 15–18; TEMP 36.6–37.2; O2SAT 90–100
--- NOTE | 2018-09-02 00:35 | DI.RAD.S_ITS ---
PROCEDURE: XR CHEST 1V INDICATIONS: New breath sounds TECHNIQUE: One view of the chest was acquired. COMPARISON: [facility], CR, XR CHEST 1V, 09/01/2018, 13:56. [facility], CR, XR CHEST 1V, 08/31/2018, 17:06. FINDINGS: Surgical changes and devices: Endotracheal tube and nasogastric tube in normal position. Lungs and pleura: Lungs are clear. No pleural effusions or pneumothorax. Mediastinum: Mediastinal contours appear normal. Heart size is normal. Bones and chest wall: No suspicious bony lesions. Old left midclavicular fracture Overlying soft tissues appear unremarkable. IMPRESSION: Endotracheal and nasogastric tube position normal, with no focal pneumonia found. Dictated by: Josse Grubbs M.D. on 09/02/2018 at 8:26 Approved by: Josse Grubbs M.D. on 09/02/2018 at 8:27
[2018-09-02] MEDS: diphenhydrAMINE 50 MG/ML VIAL IV (01:00)
[2018-09-02] MEDS: LORazepam 2 MG/ML SYRINGE IV ×2 (01:00→13:50)
[2018-09-02] MEDS: ALBUTEROL/IPRATROPIUM 3 ML AMPUL INH (01:39)
--- NOTE | 2018-09-02 02:28 | PC.NURSE ---
Addendum entered by Lisseth Hermosillo R.N. 09/02/18 06:32: Patient has remained sedated, RASS -3, propofol gtt 50-60mcg/min. VSS, see vital trends. UOP 125ml in Isabel, VEL aware. Original Note: Patient assessed at midnight to be calmly sedated on ventilator. FIO2 30% TV 470 PEEP 5 RR 15, patient is breathing with vent at 15, SpO2 99%, breath sounds CTA throughout. Propofol gtt at 25mcg/min, increased to 30mcg/min for RASS -3, following orders to keep patient heavily sedated Attempting to lift arms toward HOB. VSS, see trends. At 0040 while RT in room doing vent checks and suctioning, patient suddenly woke, attempting to get to ETT, thrashing head, and biting on bite block, propofol increased to 60mcg/min in small increments, Faizan CROWDER notified and arrived at bedside. XCR obtained for sudden new exp. and inp wheezes and desatting to 80s, FIO2 increased to 50% with effectivness. ETT remaind in place and intact. IV Benadryl and IV Ativan given as ordered. Patient became sedated again, monitoring closely.
[2018-09-02] MEDS: PROPOFOL 1,000 MG/100 ML VIAL 20.82 MG IV ×2 (03:01→06:49)
[2018-09-02] MEDS: VALPROIC ACID 500 MG in DEXTROSE 5 % IN WATER 50 ML 55 ML IV (03:01)
--- NOTE | 2018-09-02 04:38 | PM.EVENT ---
Date Patient Seen: 09/02/18 Time Patient Seen: 04:38 Received a call from patient's nurse at 12:30 a.m., respectively. RN notifying of patient being awake. Since arrival to the unit patient has been resting and was maintained on 25 to 30 mcg/min of propofol. Care was provided to patient by respiratory therapy and is now noted to be awake, restless, and attempting to pull on therapeutic lines. I am being told that his propofol is being titrated upwards. I am being told that there is an acute change in patient's breath sounds and new onset of hypoxia, there is concern for potential airway obstruction, and a chest x-rays being requested (this was authorized). Patient was seen at bedside immediately. RT at bedside. Patient's eyes are open and he is alert. Mild to moderate resistance to the ventilator observed as well as a times to pull on the therapeutic lines. Propofol already at a fairly high does of 60 mcg/min. Patient's records show allergy to Valium (leg swelling) and Haldol (dystonia). Being told by the nurses that Ativan has not been effective in the past. Consider to give patient Zyprexa IM, however not available at the night pharmacy. As an alternative, ordered 50 mg of IV Benadryl and 2 mg of IV Ativan. Aforementioned medications administered to the patient and noted to be effective. Vital signs have normalized. There was a for titration of the FiO2 to 50%. Would like to come down on the propofol. As an alternative, will order valproic acid x2 doses 12 hours apart, and zyprexa 5 mg IV Q6H. I have also added fentanyl 25 mcg q.1 hour, if additional sedation is required. Discussed with the nurse to be mindful of hypotension. Cold ICU between 3:30 and 4:00 a.m. to inquire on patient's status, his noted to have been come and has not required any further sedation. Will re-evaluate need for further sedation or start titrating down, pending results of a.m. labs.
[2018-09-02 05:18] LABS: Add Manual Diff / Slide Review NO; Basophils Absolute Auto 0 /uL (0-100); Basophils Percent Auto 0.5 % (0-2); Eosinophils Absolute Auto 0 /uL (0-450); Eosinophils Percent Auto 0.2 % (2-4); Hematocrit 34.2 % (41-53); Lymphocytes Absolute Auto 2200 /uL (1100-4500); Lymphocytes Percent Auto 37.8 % (25-40); Mean Corpuscular HGB Conc 35.2 % (30-36); Mean Corpuscular Hemoglobin 31.7 PG (26-34); Mean Corpuscular Volume 90.2 fL (80-100); Monocytes Absolute Auto 400 /uL (0-900); Monocytes Percent Auto 6.4 % (3-14); Neutrophils Absolute Auto 3200 /uL (1500-7000); Neutrophils Percent Auto 55.1 % (50-75); Platelet Count 102 X10^3/uL (150-400); Red Blood Cell Count 3.79 X10^6/uL (4.5-5.9); Red Cell Distribution Width 12.9 % (11.6-14.8); White Blood Cell Count 5.9 X10^3/uL (4.5-11.0)
[2018-09-02 06:21] LABS: Ethanol (ETOH) 129 mg/dL
[2018-09-02 06:24] LABS: Alanine Aminotransferase 34 IU/L (21-72); Albumin 3.1 g/dL (3.5-5.0); Albumin Globulin Ratio 1.3 (1.0-2.8); Alkaline Phosphatase 39 U/L (38-126); Aspartate Aminotransferase 35 IU/L (17-59); Bilirubin Total 0.2 mg/dL (0.2-1.3); Blood Urea Nitrogen 14 mg/dL (9-20); Calcium 8.5 mg/dL (8.4-10.2); Carbon Dioxide 24 mmol/L (22-32); Chloride 111 mmol/L (98-107); Estimated Glomerular Filt Rate > 60.0 mL/min (>60); Globulin 2.4 g/dL (1.7-4.1); Glucose 72 mg/dL (70-100); HEMOLYSIS < 15 (0-50); Magnesium 1.7 mg/dL (1.6-2.3); Potassium 3.4 mmol/L (3.4-5.1); Sodium 146 mmol/L (137-145); Total Protein 5.5 g/dL (6.3-8.2)
[2018-09-02 06:51] LABS: Procalcitonin < 0.05 ng/mL (<0.5)
[2018-09-02] MEDS: fentaNYL 100 MCG/2 ML INJ 50 MCG IV (08:00)
[2018-09-02] MEDS: POTASSIUM CHLORIDE 20 MEQ TAB 40 MEQ PO (09:07)
--- NOTE | 2018-09-02 10:09 | PC.NURSE ---
Addendum entered by Luisa Connell R.N. 09/02/18 14:49: Pt transferred to [facility] in [place] via stretcher in 4-point restraints at 1440 after involuntary detainment post [facility] assessment. Ativan PO and IV administered prior to transfer for pt report of anxiety regarding transfer. Report called to [facility], all medical records faxed, and all questions answered. Information packet sent with ambulance as well as all of patient's belongings including jacket and clothing. Original Note: Day Shift Note Patient intubated and sedated with propofol on AM assessment. Oxygen sats 99%. Restraints in place to bilateral wrists. Isabel in place and draining clear yellow urine. Sedation stopped at 0835 per MD with plan to extubate. Pt awake shortly after, opening eyes and attempting to pull against restraints. Pt calmed when oriented to the situation and on plan to extubate. Able to follow commands. MD notified and order received to extubate. RT at bedside and patient extubated to RA at about 0845. OG tube discontinued with ET tube, restraints discontinued. Pt able to clear throat and cough on command, assisted to clear secretions with oral suction. Oxygen sats 95-97% on RA. Isabel catheter discontinued at 0900 per pt request. Eating and drinking without issue. Up walking in room, steady on feet. and Mariely CHAU have both been in to see pt and pt is aware of plan - awaiting [facility] assessment at this time.
--- NOTE | 2018-09-02 10:20 | SLP.IPNOTE ---
Swallow screen performed secondary to multiple intubation/extubations in previous 24 hrs. Pt c/o scratchy throat from friction of tubes and mild roughness of voice. No s/sx of dysphagia observed with intake of soft sandwich and consecutive sips thin liquid via straw. Education provided to pt RE s/sx of dysphagia, aspiration risks/precautions including increased risk with repeated intubation/extubation. Pt verbalized understanding and expressed appreciation. No further swallow evaluation warranted at this time.
--- NOTE | 2018-09-02 10:29 | PC.NURSE ---
[id number] Dr. Ruelas stated if pt leaves AMA, he is a danger to self. advised ICU staff to call [place] [employer] and inform them pt left AMA and did not wait for psychiatric Eval.
[2018-09-02 10:32] LABS: Alanine Aminotransferase 36 IU/L (21-72); Albumin 4.1 g/dL (3.5-5.0); Albumin Globulin Ratio 1.4 (1.0-2.8); Alkaline Phosphatase 49 U/L (38-126); Aspartate Aminotransferase 36 IU/L (17-59); BUN Creatinine Ratio 21.4 (6-22); Bilirubin Total 0.4 mg/dL (0.2-1.3); Blood Urea Nitrogen 15 mg/dL (9-20); Calcium 9.1 mg/dL (8.4-10.2); Carbon Dioxide 26 mmol/L (22-32); Chloride 107 mmol/L (98-107); Estimated Glomerular Filt Rate > 60.0 mL/min (>60); Globulin 2.9 g/dL (1.7-4.1); Glucose 81 mg/dL (70-100); HEMOLYSIS < 15 (0-50); Magnesium 1.5 mg/dL (1.6-2.3); Potassium 3.6 mmol/L (3.4-5.1); Sodium 146 mmol/L (137-145)
[2018-09-02 10:33] LABS: Ethanol (ETOH) 46 mg/dL
--- NOTE | 2018-09-02 13:35 | P.DS_ITS ---
History of Present Illness Date Patient Seen: 09/01/18 Chief complaint: Unresponsive, intubated, found down at [facility] Narrative: Written by Monie CROWDER: The patient is a 28-year-old male with PMH alcohol abuse, dependence disorder, depression, suicidality, eating disorder, seizures secondary to alcohol withdrawal, and low back pain. Patient was brought to the ED on 08/18 in an unresponsive state. Patient was found in the back of local [facility] by staff, per ED note patient was unresponsive with a bottle of vodka that was 3/4 full. Patient is known to have recurrent admissions for alcohol poisoning. Most recent within 24 hours prior to current admission, at that time patient left AMA at approximately 3:00 a.m. EMS found absence of gag reflex in field and consequently intubated him for airway protection. Upon arrival to the ED patient was noted to be in a C-collar. He also had a laceration on left temporal area of the head. CT of the head and cervical spine were unremarkable for acute pathology. Known to have prior history of involuntary commitment under [employer] [place]'s Law for safety and secure detox. Chart records depicts severe ETOH dependence, p otentially refractory to treatment. Known to have excessive number of hospitalist admissions for alcohol poisoning. ED Work-Up CT of the head did not reveal acute intracranial pathology. CT of cervical spine was unremarkable for acute fracture and / or spondylolisthesis. No paravertebral hematomas. No apical pneumothoraces. Chest x-ray noted prominence of pulmonary vasculature. No focal airspace disease identified. No pleural effusions or pneumothorax. WBC 5.5 HGB 13 HCT 38.3 PLT 127 NA 148 K 3.5 MG 1.6 CL 110 8.2 CO2 27 BUN 10 CR 0.8 GLU 85 liver enzymes WNL UDS + marijuana EtOH level 393 PT 12.5 INR 1.1 ABG - pH 7.42 pCO2 39.5 pO2 181 HCO3 26 Discharge Providers Date of admission: 09/01/18 16:02 Discharge Date: 09/02/18 Primary care physician: Luigi Bains MD Consults: 09/01/18 19:34 Consult to Dietitian, Adult Routine Comment: Reason For Exam: assessed as malnourished due to etoh Consult to Structural Steel Worker Apprentice Routine Comment: Discharge provider: Kayla Ruelas DO Summary Discharge Diagnosis: 1. Acute alcohol poisoning, present on admission. Resolved. 2. Acute inability to maintain patency of airway subsequently intubated and now extubated, present on admission. Resolved. 3. Hypernatremia (mild), acute, present on admission, active 4. History of seizures in the setting of EtOH withdrawal. 5. At high risk for self-harm and , present on admission. Active. Hospital Course: Abhinav Herr is a 28-year-old male with a past medical history significant for alcohol abuse, depression, suicidality, eating disorder, seizures secondary to alcohol withdrawal, and low back pain who was readmitted after being found in an unresponsive state subsequently requiring intubation in the field. 1. Acute alcohol poisoning, present on admission. Resolved. -Intent for self harm is undetermined; however, patient does have a history psychiatric illness and poly-substance abuse. -ETOH level on presentation 393 w/ unresponsiveness, stupor-like state, and diminished respiratory drive. -Received 1L banana bag. -Corrected metabolic abnormalities with potassium chloride 40 mEq x1 and magnesium citrate 64 mEq x1. 2. Acute inability to maintain patency of airway subsequently intubated and now extubated, present on admission. Resolved. -Secondary to alcohol toxicity. -ABG - pH 7.42 pCO2 39.5 pO2 181 HCO3 26 (stable) -Consulted respiratory therapy to maintain ventilator. Patient extubated successfully. -Received sedation with propofol while intubated, per historical records high tolerance to propofol and difficulty achieving sedation. Monitor patient at this time and titrate for a RASS score of -2 (desired), if need arises, we will consider the following medications IV Benadryl, IM Zyprexa, IV fentanyl, and / or valproic acid. 3. Hypernatremia (mild), acute, present on admission, active -Received D5W until the beta it and able to take in PO fluids. 4. History of seizures in the setting of EtOH withdrawal. -Continued seizure precautions. -At high risk for seizures in the setting of alcohol toxicity and withdrawal. 5. At high risk for self-harm and , present on admission. Active. -Consulted social work and [facility] and patient was detained via [facility]. Status at Discharge Functional status at discharge: independent ambulation Overall status at discharge: patient is back to baseline Exam Vital Signs (past 8 hours): - 09/02/18 06:00 09/02/18 07:00 09/02/18 08:00 Temperature 98 F Pulse Rate 63 67 64 Respiratory Rate 15 15 15 Blood Pressure 103/60 108/63 104/61 Pulse Oximetry 99 100 99 09/02/18 09:00 09/02/18 12:00 Temperature 98.8 F Pulse Rate 75 Respiratory Rate 18 Blood Pressure 132/85 Pulse Oximetry 96 100 Fraction of Inspired Oxygen 35 Oxygen Delivery Method Mechanical Ventilation Oxygen Flow Rate 0 Narrative Exam Narrative: General: Young male standing in room pacing, in no acute distress, well- developed, well-nourished, anxious and disheveled, calm and appropriately interactive, poor insight. HEENT: Normocephalic, atraumatic. External ears without defect. Pupils equal, round, and reactive to light. Anicteric sclerae, moist conjunctivae, and no lid lag. Oropharynx free of erythema and cobble stoning with dry oral mucosa. Neck: Supple with full range of motion. No lymphadenopathy or thyromegaly. Cardiovascular: Regular rate and rhythm without murmurs, rubs, or gallops appreciated Pulmonary: Clear to auscultation bilaterally without crackles, wheezes, or rhonchi. Normal respiratory effort with no use of accessory muscles. Abdomen: Soft, bowel sounds present, nontender, nondistended. No hepat osplenomegaly or masses appreciated. Extremities: No clubbing, cyanosis, or edema. Skin: Normal temperature, turgor, and texture; no rash, ulcers, or subcutaneous nodules appreciated. Neurological: Cranial nerves grossly intact. Psychiatric: Anxious mood and flat affect. Alert and oriented to person, place, and time. Poor insight into addiction and disease process. Objective Labs Result Diagrams: 09/02/18 04:55 09/02/18 09:55 Labs: Laboratory Results - last 24 hr 09/01/18 09/01/18 09/01/18 14:26 14:39 14:39 WBC 5.5 RBC 4.20 L Hgb 13.0 L Hct 38.3 L MCV 91.1 MCH 31.0 MCHC 34.0 RDW 12.9 Plt Count 127 L Neut % (Auto) 65.8 Lymph % (Auto) 27.9 Charles % (Auto) 5.4 Eos % (Auto) 0.2 L Baso % (Auto) 0.7 Neut # (Auto) 3600 Lymph # (Auto) 1500 Charles # (Auto) 300 Eos # (Auto) 0 Baso # (Auto) 0 PT 12.5 INR 1.1 ABG pH 7.42 ABG pCO2 39.5 ABG pO2 181 H ABG HCO3 26 ABG Total CO2 27 ABG O2 Saturation 100 ABG Base Excess 1.0 FiO2 35 Sodium Potassium Chloride Carbon Dioxide BUN Creatinine Estimated GFR BUN/Creatinine Ratio Glucose Calcium Magnesium Total Bilirubin Conjugated Bilirubin Unconjugated Bilirubin AST ALT Alkaline Phosphatase Total Protein Albumin Globulin Albumin/Globulin Ratio Lipase Procalcitonin Urine Opiates Screen Ur Oxycodone Screen Urine Methadone Screen Ur Barbiturates Screen U Tricyclic Antidepress Ur Phencyclidine Scrn Ur Amphetamines Screen U Methamphetamines Scrn Ur MDMA Scrn (Ecstasy) U Benzodiazepines Scrn Urine Cocaine Screen U Marijuana (THC) Screen Ethyl Alcohol 09/01/18 09/01/18 09/01/18 14:39 14:39 15:10 WBC RBC Hgb Hct MCV MCH MCHC RDW Plt Count Neut % (Auto) Lymph % (Auto) Charles % (Auto) Eos % (Auto) Baso % (Auto) Neut # (Auto) Lymph # (Auto) Charles # (Auto) Eos # (Auto) Baso # (Auto) PT INR ABG pH ABG pCO2 ABG pO2 ABG HCO3 ABG Total CO2 ABG O2 Saturation ABG Base Excess FiO2 Sodium 148 H Potassium 3.5 Chloride 110 H Carbon Dioxide 27 BUN 10 Creatinine 0.80 Estimated GFR > 60.0 BUN/Creatinine Ratio 12.5 Glucose 85 Calcium 8.2 L Magnesium 1.6 Total Bilirubin 0.2 Conjugated Bilirubin 0.0 Unconjugated Bilirubin 0.2 AST 51 ALT 36 Alkaline Phosphatase 49 Total Protein 6.2 L Albumin 3.6 Globulin 2.6 Albumin/Globulin Ratio 1.4 Lipase 101 Procalcitonin Urine Opiates Screen Negative Ur Oxycodone Screen Negative Urine Methadone Screen Negative Ur Barbiturates Screen Negative U Tricyclic Antidepress Negative Ur Phencyclidine Scrn Negative Ur Amphetamines Screen Negative U Methamphetamines Scrn Negative Ur MDMA Scrn (Ecstasy) Negative U Benzodiazepines Scrn Negative Urine Cocaine Screen Negative U Marijuana (THC) Screen Positive H Ethyl Alcohol 393 Cancelled 09/02/18 09/02/18 09/02/18 04:55 04:55 04:55 WBC 5.9 RBC 3.79 L Hgb 12.0 L Hct 34.2 L MCV 90.2 MCH 31.7 MCHC 35.2 RDW 12.9 Plt Count 102 L Neut % (Auto) 55.1 Lymph % (Auto) 37.8 Charles % (Auto) 6.4 Eos % (Auto) 0.2 L Baso % (Auto) 0.5 Neut # (Auto) 3200 Lymph # (Auto) 2200 Charles # (Auto) 400 Eos # (Auto) 0 Baso # (Auto) 0 PT INR ABG pH ABG pCO2 ABG pO2 ABG HCO3 ABG Total CO2 ABG O2 Saturation ABG Base Excess FiO2 Sodium 146 H Potassium 3.4 Chloride 111 H Carbon Dioxide 24 BUN 14 Creatinine 0.70 Estimated GFR > 60.0 BUN/Creatinine Ratio 20.0 Glucose 72 Calcium 8.5 Magnesium 1.7 Total Bilirubin 0.2 Conjugated Bilirubin Unconjugated Bilirubin AST 35 ALT 34 Alkaline Phosphatase 39 Total Protein 5.5 L Albumin 3.1 L Globulin 2.4 Albumin/Globulin Ratio 1.3 Lipase Procalcitonin < 0.05 Urine Opiates Screen Ur Oxycodone Screen Urine Methadone Screen Ur Barbiturates Screen U Tricyclic Antidepress Ur Phencyclidine Scrn Ur Amphetamines Screen U Methamphetamines Scrn Ur MDMA Scrn (Ecstasy) U Benzodiazepines Scrn Urine Cocaine Screen U Marijuana (THC) Screen Ethyl Alcohol 09/02/18 09/02/18 09/02/18 04:55 09:55 09:55 WBC RBC Hgb Hct MCV MCH MCHC RDW Plt Count Neut % (Auto) Lymph % (Auto) Charles % (Auto) Eos % (Auto) Baso % (Auto) Neut # (Auto) Lymph # (Auto) Charles # (Auto) Eos # (Auto) Baso # (Auto) PT INR ABG pH ABG pCO2 ABG pO2 ABG HCO3 ABG Total CO2 ABG O2 Saturation ABG Base Excess FiO2 Sodium 146 H Potassium 3.6 Chloride 107 Carbon Dioxide 26 BUN 15 Creatinine 0.70 Estimated GFR > 60.0 BUN/Creatinine Ratio 21.4 Glucose 81 Calcium 9.1 Magnesium 1.5 L Total Bilirubin 0.4 Conjugated Bilirubin Unconjugated Bilirubin AST 36 ALT 36 Alkaline Phosphatase 49 Total Protein 7.0 Albumin 4.1 Globulin 2.9 Albumin/Globulin Ratio 1.4 Lipase Procalcitonin Urine Opiates Screen Ur Oxycodone Screen Urine Methadone Screen Ur Barbiturates Screen U Tricyclic Antidepress Ur Phencyclidine Scrn Ur Amphetamines Screen U Methamphetamines Scrn Ur MDMA Scrn (Ecstasy) U Benzodiazepines Scrn Urine Cocaine Screen U Marijuana (THC) Screen Ethyl Alcohol 129 46 Discharge Plan Discharge Plan Patient Disposition: Xfer Psychiatric Hosp Discharge Med Rec/Prescriptions Prescriptions: No Action Unobtainable RF: 0 Follow up/Referrals: Luigi Bains MD [Primary Care Provider] - Discharge Orders: Discharge (Order); Ordered 09/02/18 Ordered By: Kayla Ruelas Discharge Data Primary Care Provider: Luigi Bains Attending Provider: Kayla Ruelas Admit Date/Time: 09/01/18 16:02 Discharges patient from system. Discharge Date/Time: 09/02/18 14:40 Quality VTE Deep Vein Thrombosis/Pulmonary Embolism Present on Admission: No
[2018-09-02] MEDS: MAGNESIUM CHLORIDE 64 MG TABLET PO (13:49)
[2018-09-02] MEDS: LORazepam 1 MG TABLET PO (14:13)
--- NOTE | 2018-09-02 15:13 | CM.DANOTE ---
DCP/continued: Reviewed chart this AM. Patient admitted to [facility] after being found unresponsive at [facility]. Patient with history of ED visits and hospitalizations related to alcoholism. The last was a few days ago when patient admitted, intubated, and decided to self extubate and leave AMA. Patient with history with [facility] and detainments. DIGESTER OPERATOR spoke with Dr. Ruelas and she is requested DCR dispatch today. Patient will be extubated and expected to want to leave AMA. DIGESTER OPERATOR placed call to Crisis and spoke with Evy. All information provided and confirmation that patient medically stable provided. Evy reports that she will dispatch DCR/Vee. Met with patient explained DIGESTER OPERATOR role. Patient known to this DIGESTER OPERATOR from previous visits. Patient recently discharged from detox in [place]. Patient reports that he prefers to go home rather than return to facility. DIGESTER OPERATOR made patient aware that because of the severity and frequency of visits DCR will need to be dispatched. Spoke with TRAY/Vee, she too is very familiar with patient and reports that she has no hesitation in detaining him. Vee made arrangements for patient to go to detox/treatment in [place]. RN updated and legal documentation for detainment completed by TRAY/Vee. RN/Charge Kenzie to call for S transport for detained patient. Patient made aware and somewhat agreeable at time of departure. RN called report. P: Detainment today. KANDI Dickerson
== END 2018-09-02 14:40 | DRG 816 ==
LOC: ED 13:54 → AC 16:03 → ICU 17:32
PROVIDERS: Nurse Practitioner Gerontology; Admitting Provider Internal Medicine; Emergency Provider Emergency Medicine; Family Provider Family Medicine; PCP Family Medicine; Visit Provider Internal Medicine
DX: T51.0X1A Toxic effect of ethanol, accidental (unintentional), initial encounter (principal); E87.0 Hyperosmolality and hypernatremia; R40.2312 Coma scale, best motor response, none, at arrival to emergency department; R40.2112 Coma scale, eyes open, never, at arrival to emergency department; R40.2212 Coma scale, best verbal response, none, at arrival to emergency department; F10.229 Alcohol dependence with intoxication, unspecified; Y90.8 Blood alcohol level of 240 mg/100 ml or more; F50.9 Eating disorder, unspecified; S01.81XA Laceration without foreign body of other part of head, initial encounter; W19.XXXA Unspecified fall, initial encounter; Y92.511 Restaurant or cafe as the place of occurrence of the external cause
CPT/HCPCS: 36415; 36600; 51701; 70450; 71045; 72125; 80053; 80076; 80305; 80320; 82805; 82962; 83690; 83735; 84145; 85025; 85610; 93005; 93010; 93041; 94002; 94003; 94640; 94770; 94799; 96361; 96374; 99285; 99291; 99292; J1200; J2060; J2704; J3010; J3475

== ENCOUNTER 2018-09-23 19:47 | Inpatient (IN) | payer OTHER, MEDICAID, SELFPAY ==
[2018-09-01 17:12] VITALS: BMI 21.4
[2018-09-02 07:47] VITALS: PULSE 66; RESP 15; O2SAT 100
[2018-09-23] VITALS (15 sets, daily range): BP systolic 93–126; BP diastolic 66–89; PULSE 58–74; RESP 12–14; TEMP 35.6; O2SAT 99–100; BMI 21.8
--- NOTE | 2018-09-23 19:55 | DI.CT.S_ITS ---
PROCEDURE: CT HEAD/BRAIN WO CON INDICATIONS: found down TECHNIQUE: Noncontrast 4.5 mm thick angled axial sections acquired from the foramen magnum to the vertex, with coronal and sagittal reformats. For radiation dose reduction, the following was used: automated exposure control, adjustment of mA and/or kV according to patient size. COMPARISON: [facility], CT, CT HEAD/BRAIN WO CON, 07/09/2018, 19:19. FINDINGS: Image quality: Excellent. CSF spaces: Basal cisterns are patent. No extra-axial fluid collections. Ventricles are normal in size and shape. Brain: No midline shift. No intracranial masses or hemorrhage. Dey-white matter interface is normal. Skull and face: Calvarium and visualized facial bones are intact, without suspicious lesions. Sinuses: Visualized sinuses and mastoids are clear. IMPRESSION: No acute intracranial findings. Dictated by: Zonia Porter M.D. on 09/23/2018 at 20:57 Approved by: Zonia Porter M.D. on 09/23/2018 at 20:59
--- NOTE | 2018-09-23 19:55 | DI.CT.S_ITS ---
PROCEDURE: CT CERVICAL SPINE WO CON INDICATIONS: found down TECHNIQUE: Noncontrast 3 mm thick sections acquired from the skull base to the T4 level. Sagittal and coronal reformats were then constructed. For radiation dose reduction, the following was used: automated exposure control, adjustment of mA and/or kV according to patient size. COMPARISON: None. FINDINGS: Image quality: Excellent. Bones: No fractures or dislocations. Visualized superior ribs are intact. Soft tissues: Prevertebral soft tissues are normal in thickness. No paravertebral hematomas. No apical pneumothoraces. IMPRESSION: No acute cervical spine injury. Dictated by: Zonia Porter M.D. on 09/23/2018 at 20:54 Approved by: Zonia Porter M.D. on 09/23/2018 at 20:56
--- NOTE | 2018-09-23 19:55 | DI.RAD.S_ITS ---
PROCEDURE: XR CHEST 1V INDICATIONS: intubation TECHNIQUE: One view of the chest was acquired. COMPARISON: None. FINDINGS: Surgical changes and devices: The patient is intubated and endotracheal tube is 1.2 cm above the matthew. Lungs and pleura: Lungs are clear. No pleural effusions or pneumothorax. Mediastinum: Mediastinal contours appear normal. Heart size is normal. Bones and chest wall: No suspicious bony lesions. Overlying soft tissues appear unremarkable. IMPRESSION: Status post intubation. No acute cardiopulmonary findings. Dictated by: Zonia Porter M.D. on 09/23/2018 at 20:15 Approved by: Zonia Porter M.D. on 09/23/2018 at 20:16
--- NOTE | 2018-09-23 20:02 | ED.OVERDOSE ---
HPI - Overdose General Chief Complaint: Unresponsive Stated Complaint: Found Down, Intubated Time Seen by Provider: 09/23/18 19:55 Source: EMS and old records reviewed Mode of arrival: EMS Limitations: physical limitation History of Present Illness HPI Narrative: Patient is a 28-year-old male well known to this facility and myself presenting with acute respiratory failure and unresponsiveness. He was intubated in the field by EMS for decreased responsiveness. He is becoming harder and harder to intubate per EMS due to multiple intubations respiratory failure and alcohol intoxication. That he went to [facility] and got visceral injections. She left, came back found him on the for unresponsive EMS called. He at 1 point stated that you do not want me anymore to her today. 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 isn't sure when or where or what he drank Related Data Home Medications Medication Instructions Recorded Confirmed Unobtainable 03/19/18 09/01/18 Allergies Allergy/AdvReac Type Severity Reaction Status Date / Time shrimp [SHRIMP] Allergy Severe THROAT Verified 09/01/18 13:57 SWELLING/HIVES diazepam [From VALIUM] Allergy Intermediate LEG Verified 09/01/18 13:57 SWELLING haloperidol [From HALDOL] Allergy Unknown DYSTONIA Verified 09/01/18 13:57 naproxen [NAPROXEN] AdvReac Mild NAUSEA/GI Verified 09/01/18 13:57 DISTRESS Review of Systems Review of Systems ROS Unobtainable: Unobtainable due to medical condition [facility] Medical History Alcoholism (Acute) Depression (Acute) Eating disorder (Acute) Epilepsy (Acute) Low back pain (Acute) Family History Grandfather Type 2 diabetes mellitus without complication, unspecified [facility] insulin use status Grandmother Type 2 diabetes mellitus without complication, 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 Social History household members: spouse, family and children Smoking Status: Unknown if ever smoked alcohol intake: current Exam Initial Vital Signs Initial Vital Signs: Vital Signs Pulse Rate 74 09/23/18 19:54 Respiratory Rate 13 09/23/18 19:54 Blood Pressure 126/80 09/23/18 19:54 Pulse Oximetry 99 09/23/18 19:54 Gen.: Thin male intubated HEENT: No sign of head trauma Neck: No vertebral tenderness Lungs: Clear bilaterally intubated no respiratory distress Cardiac: Regular rate no murmur Abdomen: Soft nontender Extremities, no gross deformities peripheral pulses intact Neurologic: Pupils fixed but did receive succinylcholine and etomidate Course Orders Ordered: ED Orders 09/23/18 19:55 CT cervical spine wo con Stat CT head/brain wo con Stat XR chest 1V Stat 09/23/18 20:29 Acetaminophen Stat Complete Blood Count AUTO DIFF Stat Comprehensive Metabolic Panel Stat Ethanol (ETOH) Stat Hepatic (Liver) Panel Stat Lactate (Lactic Acid) Stat Salicylate Stat 09/23/18 20:30 Arterial Blood Gas Stat 09/23/18 21:05 Urine Drug Screen, Rapid Stat 09/23/18 22:55 MRSA PCR Urgent 09/24/18 02:31 Consult to Respiratory Therapy Evaluate & Treat 09/24/18 06:00 Complete Blood Count AUTO DIFF Routine Comprehensive Metabolic Panel Routine Ethanol (ETOH) Routine Acetaminophen (Tylenol) 650 mg MD Q6HR PRN PRN Reason: As Needed for Fever/Mild Pain Diphenhydramine HCl (Benadryl) 50 mg IV NOW ONE Stop: 09/24/18 02:08 Haloperidol (Haldol) 5 mg IV NOW ONE Stop: 09/24/18 02:08 Sodium Chloride (Normal Saline 0.9%) 1,000 mls @ 150 mls/hr IV CONT HOLGER Last Admin: 09/24/18 01:10 Dose: 150 mls/hr Infusion: 09/24/18 01:10 Dose: 150 mls/hr Infusion: 09/23/18 23:00 Dose: 150 mls/hr Infusion: 09/23/18 22:23 Dose: 0 mls/hr Infusion: 09/23/18 21:23 Dose: 50 mls/hr Admin: 09/23/18 20:57 Dose: 150 mls/hr Propofol (Propofol) 1,000 mg in 100 mls @ 2.1 mls/hr IV TITRATE HOLGER; Protocol Last Titration: 09/24/18 00:31 Dose: 15 mcg/kg/min, 6.3 mls/hr Titration: 09/23/18 22:23 Dose: 0 mcg/kg/min, 0 mls/hr Titration: 09/23/18 22:06 Dose: 10 mcg/kg/min, 4.2 mls/hr Titration: 09/23/18 21:24 Dose: 15 mcg/kg/min, 6.3 mls/hr Titration: 09/23/18 21:12 Dose: 10 mcg/kg/min, 4.2 mls/hr Admin: 09/23/18 20:45 Dose: 5 mcg/kg/min, 2.1 mls/hr Dextrose (Dextrose 5% Water) 500 mls @ 21 mls/hr IV CONT HOLGER Lorazepam (Ativan) 2 mg IV NOW ONE Stop: 09/24/18 02:07 Naloxone HCl (Narcan) 0.2 mg IV Q2MIN PRN PRN Reason: Sedation Pantoprazole Sodium (Protonix) 40 mg IV DAILY HOLGER Discontinued Medications Fentanyl (Sublimaze) 50 mcg IV Q2H PRN PRN Reason: Sedation Vital Signs - 8 hr 09/23/18 19:54 09/23/18 20:09 09/23/18 20:30 Temperature Pulse Rate 74 68 60 Respiratory Rate 13 12 12 Blood Pressure 126/80 Blood Pressure [Left Arm] 119/87 113/79 Pulse Oximetry 99 100 100 09/23/18 20:36 09/23/18 21:00 09/23/18 21:30 Temperature Pulse Rate 74 60 60 Respiratory Rate 13 12 12 Blood Pressure 126/80 Blood Pressure [Left Arm] 123/89 108/74 Pulse Oximetry 99 100 100 09/23/18 21:37 09/23/18 21:45 09/23/18 22:01 Temperature Pulse Rate 59 L 60 61 Respiratory Rate 12 12 12 Blood Pressure Blood Pressure [Left Arm] 106/70 108/68 101/66 Pulse Oximetry 100 100 100 09/23/18 22:07 09/23/18 22:20 09/24/18 00:24 Temperature 96.1 F L 96.9 F L Pulse Rate 59 L 58 L 59 L Respiratory Rate 12 12 12 Blood Pressure 119/75 103/54 L Blood Pressure [Left Arm] 93/66 Pulse Oximetry 99 100 100 09/24/18 01:39 Temperature Pulse Rate Respiratory Rate Blood Pressure Blood Pressure [Left Arm] Pulse Oximetry 100 MDM - Overdose Lab Data Attestation: I reviewed the patient's lab results. Result diagrams: 09/23/18 20:29 09/23/18 20:29 Lab Results 09/23/18 09/23/18 09/23/18 Range/Units 20:29 20:29 20:29 WBC 5.8 (4.5-11.0) X10^3/uL RBC 4.65 (4.5-5.9) X10^6/uL Hgb 14.3 (13.5-17.5) g/dL Hct 41.3 (41-53) % MCV 88.7 (80-100) fL MCH 30.8 (26-34) PG MCHC 34.7 (30-36) % RDW 12.6 (11.6-14.8) % Plt Count 166 (150-400) X10^3/uL Neut % (Auto) 45.7 L (50-75) % Lymph % (Auto) 45.9 H (25-40) % [place] % (Auto) 7.4 (3-14) % Eos % (Auto) 0.2 L (2-4) % Baso % (Auto) 0.8 (0-2) % Neut # (Auto) 2700 (8483-2076) /uL Lymph # (Auto) 2700 (3500-8007) /uL [place] # (Auto) 400 (0-900) /uL Eos # (Auto) 0 (0-450) /uL Baso # (Auto) 0 (0-100) /uL ABG pH (7.35-7.45) ABG pCO2 (35-45) mmHg ABG pO2 (80-100) mmHg ABG HCO3 (22-26) mmol/L ABG Total CO2 (21-31) mmol/L ABG O2 Saturation (95-100) % ABG Base Excess (-2-2) mmol/L FiO2 Sodium 135 L (137-145) mmol/L Potassium 3.0 L (3.4-5.1) mmol/L Chloride 93 L (98-107) mmol/L Carbon Dioxide 25 (22-32) mmol/L BUN 14 (9-20) mg/dL Creatinine 0.70 (0.66-1.25) mg/dL Estimated GFR > 60.0 (>60) mL/min BUN/Creatinine Ratio 20.0 (6-22) Glucose 85 (70-100) mg/dL Serum Osmolality Lactate 3.0 H (0.7-2.1) mmol/L Calcium 8.4 (8.4-10.2) mg/dL Total Bilirubin 0.6 (0.2-1.3) mg/dL Conjugated Bilirubin 0.0 (0.0-0.3) md/dL Unconjugated Bilirubin 0.6 (0.0-1.1) mg/dL AST 23 (17-59) IU/L ALT 23 (21-72) IU/L Alkaline Phosphatase 52 (38-126) U/L Total Protein 7.6 (6.3-8.2) g/dL Albumin 4.6 (3.5-5.0) g/dL Globulin 3.0 (1.7-4.1) g/dL Albumin/Globulin Ratio 1.5 (1.0-2.8) Nasal Screen MRSA (PCR) (Negative) Salicylates < 1.0 (<20) mg/dL Urine Opiates Screen (Negative) Ur Oxycodone Screen (Negative) Urine Methadone Screen (Negative) Acetaminophen < 10 L (10-30) ug/mL Ur Barbiturates Screen (Negative) U Tricyclic Antidepress (Negative) Ur Phencyclidine Scrn (Negative) Ur Amphetamines Screen (Negative) U Methamphetamines Scrn (Negative) Ur MDMA Scrn (Ecstasy) (Negative) U Benzodiazepines Scrn (Negative) Urine Cocaine Screen (Negative) U Marijuana (THC) Screen (Negative) Ethyl Alcohol 409 H* mg/dL Ref Test (Refrig) 09/23/18 09/23/18 09/23/18 Range/Units 20:29 20:30 21:05 WBC (4.5-11.0) X10^3/uL RBC (4.5-5.9) X10^6/uL Hgb (13.5-17.5) g/dL Hct (41-53) % MCV (80-100) fL MCH (26-34) PG MCHC (30-36) % RDW (11.6-14.8) % Plt Count (150-400) X10^3/uL Neut % (Auto) (50-75) % Lymph % (Auto) (25-40) % [place] % (Auto) (3-14) % Eos % (Auto) (2-4) % Baso % (Auto) (0-2) % Neut # (Auto) (0371-4897) /uL Lymph # (Auto) (5619-5651) /uL [place] # (Auto) (0-900) /uL Eos # (Auto) (0-450) /uL Baso # (Auto) (0-100) /uL ABG pH 7.44 (7.35-7.45) ABG pCO2 41.2 (35-45) mmHg ABG pO2 302 H* (80-100) mmHg ABG HCO3 28 H (22-26) mmol/L ABG Total CO2 29 (21-31) mmol/L ABG O2 Saturation 100 (95-100) % ABG Base Excess 4.0 H (-2-2) mmol/L FiO2 0.50 Sodium (137-145) mmol/L Potassium (3.4-5.1) mmol/L Chloride (98-107) mmol/L Carbon Dioxide (22-32) mmol/L BUN (9-20) mg/dL Creatinine (0.66-1.25) mg/dL Estimated GFR (>60) mL/min BUN/Creatinine Ratio (6-22) Glucose (70-100) mg/dL Serum Osmolality Cancelled Lactate (0.7-2.1) mmol/L Calcium (8.4-10.2) mg/dL Total Bilirubin (0.2-1.3) mg/dL Conjugated Bilirubin (0.0-0.3) md/dL Unconjugated Bilirubin (0.0-1.1) mg/dL AST (17-59) IU/L ALT (21-72) IU/L Alkaline Phosphatase (38-126) U/L Total Protein (6.3-8.2) g/dL Albumin (3.5-5.0) g/dL Globulin (1.7-4.1) g/dL Albumin/Globulin Ratio (1.0-2.8) Nasal Screen MRSA (PCR) (Negative) Salicylates (<20) mg/dL Urine Opiates Screen Negative (Negative) Ur Oxycodone Screen Negative (Negative) Urine Methadone Screen Negative (Negative) Acetaminophen (10-30) ug/mL Ur Barbiturates Screen Negative (Negative) U Tricyclic Antidepress Negative (Negative) Ur Phencyclidine Scrn Negative (Negative) Ur Amphetamines Screen Negative (Negative) U Methamphetamines Scrn Negative (Negative) Ur MDMA Scrn (Ecstasy) Negative (Negative) U Benzodiazepines Scrn Negative (Negative) Urine Cocaine Screen Negative (Negative) U Marijuana (THC) Screen Negative (Negative) Ethyl Alcohol mg/dL Ref Test (Refrig) 09/23/18 09/23/18 Range/Units 22:55 23:00 WBC (4.5-11.0) X10^3/uL RBC (4.5-5.9) X10^6/uL Hgb (13.5-17.5) g/dL Hct (41-53) % MCV (80-100) fL MCH (26-34) PG MCHC (30-36) % RDW (11.6-14.8) % Plt Count (150-400) X10^3/uL Neut % (Auto) (50-75) % Lymph % (Auto) (25-40) % [place] % (Auto) (3-14) % Eos % (Auto) (2-4) % Baso % (Auto) (0-2) % Neut # (Auto) (8719-8666) /uL Lymph # (Auto) (3018-7359) /uL [place] # (Auto) (0-900) /uL Eos # (Auto) (0-450) /uL Baso # (Auto) (0-100) /uL ABG pH (7.35-7.45) ABG pCO2 (35-45) mmHg ABG pO2 (80-100) mmHg ABG HCO3 (22-26) mmol/L ABG Total CO2 (21-31) mmol/L ABG O2 Saturation (95-100) % ABG Base Excess (-2-2) mmol/L FiO2 Sodium (137-145) mmol/L Potassium (3.4-5.1) mmol/L Chloride (98-107) mmol/L Carbon Dioxide (22-32) mmol/L BUN (9-20) mg/dL Creatinine (0.66-1.25) mg/dL Estimated GFR (>60) mL/min BUN/Creatinine Ratio (6-22) Glucose (70-100) mg/dL Serum Osmolality Lactate 3.3 H (0.7-2.1) mmol/L Calcium (8.4-10.2) mg/dL Total Bilirubin (0.2-1.3) mg/dL Conjugated Bilirubin (0.0-0.3) md/dL Unconjugated Bilirubin (0.0-1.1) mg/dL AST (17-59) IU/L ALT (21-72) IU/L Alkaline Phosphatase (38-126) U/L Total Protein (6.3-8.2) g/dL Albumin (3.5-5.0) g/dL Globulin (1.7-4.1) g/dL Albumin/Globulin Ratio (1.0-2.8) Nasal Screen MRSA (PCR) Negative for mrsa (Negative) Salicylates (<20) mg/dL Urine Opiates Screen (Negative) Ur Oxycodone Screen (Negative) Urine Methadone Screen (Negative) Acetaminophen (10-30) ug/mL Ur Barbiturates Screen (Negative) U Tricyclic Antidepress (Negative) Ur Phencyclidine Scrn (Negative) Ur Amphetamines Screen (Negative) U Methamphetamines Scrn (Negative) Ur MDMA Scrn (Ecstasy) (Negative) U Benzodiazepines Scrn (Negative) Urine Cocaine Screen (Negative) U Marijuana (THC) Screen (Negative) Ethyl Alcohol mg/dL Ref Test (Refrig) Point of Care Testing Glucose POC 91 Imaging Data Chest x-ray: Radiologist's impression: PROCEDURE: XR CHEST 1V INDICATIONS: intubation TECHNIQUE: One view of the chest was acquired. COMPARISON: None. FINDINGS: Surgical changes and devices: The patient is intubated and endotracheal tube is 1.2 cm above the matthew. Lungs and pleura: Lungs are clear. No pleural effusions or pneumothorax. Mediastinum: Mediastinal contours appear normal. Heart size is normal. Bones and chest wall: No suspicious bony lesions. Overlying soft tissues appear unremarkable. IMPRESSION: Status post intubation. No acute cardiopulmonary findings. Dictated by: Zonia Porter M.D. on 09/23/2018 at 20:15 CT scan - head: Radiologist's impression: PROCEDURE: CT HEAD/BRAIN WO CON INDICATIONS: found down TECHNIQUE: Noncontrast 4.5 mm thick angled axial sections acquired from the foramen magnum to the vertex, with coronal and sagittal reformats. For radiation dose reduction, the following was used: automated exposure control, adjustment of mA and/or kV according to patient size. COMPARISON: [facility], CT, CT HEAD/BRAIN WO CON, 07/09/2018, 19:19. FINDINGS: Image quality: Excellent. CSF spaces: Basal cisterns are patent. No extra-axial fluid collections. Ventricles are normal in size and shape. Brain: No midline shift. No intracranial masses or hemorrhage. Dey-white matter interface is normal. Skull and face: Calvarium and visualized facial bones are intact, without suspicious lesions. Sinuses: Visualized sinuses and mastoids are clear. IMPRESSION: No acute intracranial findings. Dictated by: Zonia Porter M.D. on 09/23/2018 at 20:57 ct cervical: Radiologist's impression: PROCEDURE: CT CERVICAL SPINE WO CON INDICATIONS: found down TECHNIQUE: Noncontrast 3 mm thick sections acquired from the skull base to the T4 level. Sagittal and coronal reformats were then constructed. For radiation dose reduction, the following was used: automated exposure control, adjustment of mA and/or kV according to patient size. COMPARISON: None. FINDINGS: Image quality: Excellent. Bones: No fractures or dislocations. Visualized superior ribs are intact. Soft tissues: Prevertebral soft tissues are normal in thickness. No paravertebral hematomas. No apical pneumothoraces. IMPRESSION: No acute cervical spine injury. Dictated by: Zonia Porter M.D. on 09/23/2018 at 20:54 ECG Data Attestation: I personally reviewed and interpreted this ECG as follows: Interpretation: Normal sinus rhythm rate [address] changes MDM Narrative Medical decision making narrative: Anion gap 17 lactic acid 3.0, serum osmolality has been sent to [facility] stat. At this time based on anion gap and lactic acid I do not believe patient to have had isopropyl alcohol, ethylene glycol or methanol. Critical Care Time Critical Care Time: Yes Total Critical Care Time: 30 Attestation: The high probability of a clinically significant, sudden or life threatening deterioration of the respiratory system(s) required my full and direct attention, intervention and personal management. The aggregate critical care time was 30 minutes. This time is in addition to time spent performing reported procedures but includes the following: [x] Data Review and interpretation [x] Patient assessment and monitoring of vital signs [x] Documentation [x] Medication orders and management Discharge Plan Departure Patient Disposition: Admitted As Inpatient Clinical Impression: Alcohol intoxication Qualifiers: Complication of substance-induced condition: with unspecified complication Qualified Code(s): F10.929 - Alcohol use, unspecified with intoxication, unspecified Respiratory failure Qualifiers: Chronicity: acute Respiratory failure complication: unspecified whether with hypoxia or hypercapnia Qualified Code(s): J96.00 - Acute respiratory failure, unspecified whether with hypoxia or hypercapnia Discharge Date/Time: 09/23/18 22:24 Interventions: ED Discharge Assessment Last Done: 09/23/18 22:23 Admit Date/Time: 09/23/18 21:41 Admit Provider: Monie Marin
[2018-09-23 20:37] LABS: Add Manual Diff / Slide Review NO; Basophils Absolute Auto 0 /uL (0-100); Basophils Percent Auto 0.8 % (0-2); Eosinophils Absolute Auto 0 /uL (0-450); Eosinophils Percent Auto 0.2 % (2-4); Hematocrit 41.3 % (41-53); Hemoglobin 14.3 g/dL (13.5-17.5); Lymphocytes Absolute Auto 2700 /uL (1100-4500); Lymphocytes Percent Auto 45.9 % (25-40); Mean Corpuscular HGB Conc 34.7 % (30-36); Mean Corpuscular Hemoglobin 30.8 PG (26-34); Mean Corpuscular Volume 88.7 fL (80-100); Monocytes Absolute Auto 400 /uL (0-900); Monocytes Percent Auto 7.4 % (3-14); Neutrophils Absolute Auto 2700 /uL (1500-7000); Neutrophils Percent Auto 45.7 % (50-75); Platelet Count 166 X10^3/uL (150-400); Red Blood Cell Count 4.65 X10^6/uL (4.5-5.9); Red Cell Distribution Width 12.6 % (11.6-14.8); White Blood Cell Count 5.8 X10^3/uL (4.5-11.0)
[2018-09-23 20:44] LABS: Acetaminophen < 10 ug/mL (10-30); Alanine Aminotransferase 23 IU/L (21-72); Albumin 4.6 g/dL (3.5-5.0); Albumin Globulin Ratio 1.5 (1.0-2.8); Alkaline Phosphatase 52 U/L (38-126); Aspartate Aminotransferase 23 IU/L (17-59); Bilirubin Total 0.6 mg/dL (0.2-1.3); Bilirubin Unconjugated 0.6 mg/dL (0.0-1.1); Blood Urea Nitrogen 14 mg/dL (9-20); Calcium 8.4 mg/dL (8.4-10.2); Carbon Dioxide 25 mmol/L (22-32); Chloride 93 mmol/L (98-107); Estimated Glomerular Filt Rate > 60.0 mL/min (>60); Glucose 85 mg/dL (70-100); Salicylate < 1.0 mg/dL (<20); Sodium 135 mmol/L (137-145); Total Protein 7.6 g/dL (6.3-8.2)
[2018-09-23] MEDS: PROPOFOL 1,000 MG/100 ML VIAL 2.1 MG IV (20:45)
[2018-09-23 20:52] LABS: HEMOLYSIS 27 (0-50)
[2018-09-23] MEDS: SODIUM CHLORIDE 0.9% 1,000 ML 150 ML IV (20:57)
[2018-09-23 21:02] LABS: Ethanol (ETOH) 409 mg/dL
--- NOTE | 2018-09-23 21:02 | PC.NURSE ---
verified propofol drip with second RN. MILLA Neal.
[2018-09-23 21:22] LABS: Urine Amphetamines Negative (Negative); Urine Barbiturates Negative (Negative); Urine Benzodiazepines Negative (Negative); Urine Cocaine Negative (Negative); Urine MDMA Negative (Negative); Urine Methadone Negative (Negative); Urine Methamphetamines Negative (Negative); Urine Morphine/Opi cutoff 2000 Negative (Negative); Urine Oxycodone Negative (Negative); Urine Phencyclidine Negative (Negative); Urine Tetrahydrocannabinol Negative (Negative); Urine Tricyclic Antidepressant Negative (Negative)
[2018-09-23 21:51] LABS: HCO3 ABG 28 mmol/L (22-26); Oxygen Saturation ABG 100 % (95-100); PCO2 ABG 41.2 mmHg (35-45); PO2 ABG 302 mmHg (80-100); TCO2 ABG 29 mmol/L (21-31); pH ABG 7.44 (7.35-7.45)
--- NOTE | 2018-09-23 22:27 | PC.NURSE ---
2220 - Patient admitted to room 102. Brought over to on stretcher by nursing staff. Transferred to bed using slider sheet. Patient sedated on ventilator. Moves extremities. Call light within reach.
[2018-09-23 22:30] LABS: Reflexed Lactate in 2 Hours Y
[2018-09-23 23:25] LABS: Lactate 2HR (Lactic Acid Rflx) 3.3 mmol/L (0.7-2.1)
[2018-09-24] VITALS (16 sets, daily range): BP systolic 82–121; BP diastolic 38–67; PULSE 52–92; RESP 12–18; TEMP 36.1–36.6; O2SAT 97–100
[2018-09-24] MEDS: SODIUM CHLORIDE 0.9% 1,000 ML 150 ML IV ×2 (01:10→10:58)
[2018-09-24] MEDS: DEXTROSE 5% WATER 500 ML 21 ML IV (02:15)
[2018-09-24] MEDS: diphenhydrAMINE 50 MG/ML VIAL IV (02:15)
[2018-09-24] MEDS: LORazepam 2 MG/ML SYRINGE IV (02:15)
[2018-09-24] MEDS: HALOPERIDOL 5 MG/ML VIAL IV (02:15)
--- NOTE | 2018-09-24 02:23 | P.HP_ITS ---
History of Present Illness Date Patient Seen: 09/24/18 Time Patient Seen: 02:18 Chief complaint: Found Down, Intubated Narrative: Patient is intubated and sedated. Patient is a 28-year-old male with PMH of alcohol abuse and dependence disorder, depression, suicidality, eating disorder, epilepsy, and low back pain. Patient is very familiar to this ED. Patient returned home on 09/23/2018 after spending a number of weeks in rehab. He was initially found down on the floor unresponsive by his . EMS was summoned. Patient made a comment to his prior to the event, you don't want me anymore. Uncertain of the context (this is noted in ED). Presents once again via EMS after being found down and unresponsive. Patient was intubated in field by EMS. It is being noted by EMS that patient is becoming more difficult to intubate given history of multiple intubation for airway protection or respiratory failure and lieu alcohol intoxication. It is noted that in field patient had respiratory rate less than 10. He received Narcan without improvement. Thereafter he was given 200 mg of ketamine IV and 200 mg of succinylcholine IV for intubation. He presented to the hospital already intubated. Alcohol level on presentation was 409. PH 7.44 pCO2 41 pO2 302 HCO3 28 Na 135 K 3 Cl 93 Ca 8.4, lactate 3.0. UDS is negative. CT head unremarkable for acute intracranial findings CT cervical spine revealed no acute cervical spine injury. Chest x-ray was unremarkable for cardiopulmonary findings Patient History Medical History Alcoholism (Acute) Depression (Acute) Eating disorder (Acute) Epilepsy (Acute) Low back pain (Acute) Family History Grandfather Type 2 diabetes mellitus without complication, unspecified retirement insulin use status Grandmother Type 2 diabetes mellitus without complication, unspecified emt intermediate insulin use status Mother Uncomplicated asthma, unspecified asthma severity Sister Uncomplicated asthma, unspecified asthma severity Unknown No problems noted. Social History household members: spouse, family and children Smoking Status: Unknown if ever smoked alcohol intake: current Family & Social History Family History Grandfather Type 2 diabetes mellitus without complication, unspecified retirement insulin use status Grandmother Type 2 diabetes mellitus without complication, unspecified retirement insulin use status Mother Uncomplicated asthma, unspecified asthma severity Sister Uncomplicated asthma, unspecified asthma severity Unknown No problems noted. Social History: household members spouse,family,children Safety & Behavioral: Feels Safe in Current Unwilling to Answer Environment Been Physically Hurt or Unwilling to Answer Threatened By a Person Tobacco & Substance use: Tobacco type cannabis/marijuana Smoking Status Unknown if ever smoked alcohol intake current alcohol intake frequency 3 or more drinks per day Substance Use Type marijuana Meds Home Medications Medication Instructions Recorded Confirmed Type Unobtainable 03/19/18 09/01/18 History Allergies Allergy/AdvReac Type Severity Reaction Status Date / Time shrimp [SHRIMP] Allergy Severe THROAT Verified 09/01/18 13:57 SWELLING/HIVES diazepam [From VALIUM] Allergy Intermediate LEG Verified 09/01/18 13:57 SWELLING haloperidol [From HALDOL] Allergy Unknown DYSTONIA Verified 09/01/18 13:57 naproxen [NAPROXEN] AdvReac Mild NAUSEA/GI Verified 09/01/18 13:57 DISTRESS Review of Systems Review of Systems unobtainable due to mental status (Patient is intoxicated, intubated, and sedated) Exam Vital Signs (past 8 hours): - 09/23/18 19:54 09/23/18 20:09 09/23/18 20:30 Temperature Pulse Rate 74 68 60 Respiratory Rate 13 12 12 Blood Pressure 126/80 Blood Pressure [Left Arm] 119/87 113/79 Pulse Oximetry 99 100 100 09/23/18 20:36 09/23/18 21:00 09/23/18 21:30 Temperature Pulse Rate 74 60 60 Respiratory Rate 13 12 12 Blood Pressure 126/80 Blood Pressure [Left Arm] 123/89 108/74 Pulse Oximetry 99 100 100 09/23/18 21:37 09/23/18 21:45 09/23/18 22:01 Temperature Pulse Rate 59 L 60 61 Respiratory Rate 12 12 12 Blood Pressure Blood Pressure [Left Arm] 106/70 108/68 101/66 Pulse Oximetry 100 100 100 09/23/18 22:07 09/23/18 22:20 09/24/18 00:24 Temperature 96.1 F L 96.9 F L Pulse Rate 59 L 58 L 59 L Respiratory Rate 12 12 12 Blood Pressure 119/75 103/54 L Blood Pressure [Left Arm] 93/66 Pulse Oximetry 99 100 100 09/24/18 01:39 Temperature Pulse Rate Respiratory Rate Blood Pressure Blood Pressure [Left Arm] Pulse Oximetry 100 Oxygen Delivery Method Mechanical Ventilation Oxygen Flow Rate 14 Narrative Exam Narrative: Constitutional: Seen in the ICU, intubated, and sedated; calm on the vent Neurologic: Sedated w/ propofol, pupils sluggish, but responsive 3 mm Head: NC, AT no overt injuries noted or hematomas palpated Eyes: Pupils are sluggish Ears: external ears normal Nose: external nose normal, no epistaxis Throat: MMM, oropharynx w/o exudate, ET and OG tube present Neck: no masses, lymphadenopathy, or JVD Chest / Respiratory: equal chest rise, tolerating ventilation, right upper lobe coarse remainder of lung sheikh are clear AC 12 TV 500 FiO2 30 Peep 10 CTAB no rrw Heart / CV: S1S2, no murmur Abdomen / GI: round, firm, ND, + BS, no organomegaly : Isabel catheter present Peripheral / Vascular: warm to touch, DP and PT pulses palpable, no edema Musc: adequate muscle tone and bulk Skin: no ecchymosis or suspicious lesions / ulcers Objective Labs Result Diagrams: 09/23/18 20:29 09/23/18 20:29 Labs: Laboratory Results - last 24 hr 09/23/18 09/23/18 09/23/18 20:29 20:29 20:29 WBC 5.8 RBC 4.65 Hgb 14.3 Hct 41.3 MCV 88.7 MCH 30.8 MCHC 34.7 RDW 12.6 Plt Count 166 Neut % (Auto) 45.7 L Lymph % (Auto) 45.9 H [place] % (Auto) 7.4 Eos % (Auto) 0.2 L Baso % (Auto) 0.8 Neut # (Auto) 2700 Lymph # (Auto) 2700 [place] # (Auto) 400 Eos # (Auto) 0 Baso # (Auto) 0 ABG pH ABG pCO2 ABG pO2 ABG HCO3 ABG Total CO2 ABG O2 Saturation ABG Base Excess FiO2 Sodium 135 L Potassium 3.0 L Chloride 93 L Carbon Dioxide 25 BUN 14 Creatinine 0.70 Estimated GFR > 60.0 BUN/Creatinine Ratio 20.0 Glucose 85 Serum Osmolality Lactate 3.0 H Calcium 8.4 Total Bilirubin 0.6 Conjugated Bilirubin 0.0 Unconjugated Bilirubin 0.6 AST 23 ALT 23 Alkaline Phosphatase 52 Total Protein 7.6 Albumin 4.6 Globulin 3.0 Albumin/Globulin Ratio 1.5 Nasal Screen MRSA (PCR) Salicylates < 1.0 Urine Opiates Screen Ur Oxycodone Screen Urine Methadone Screen Acetaminophen < 10 L Ur Barbiturates Screen U Tricyclic Antidepress Ur Phencyclidine Scrn Ur Amphetamines Screen U Methamphetamines Scrn Ur MDMA Scrn (Ecstasy) U Benzodiazepines Scrn Urine Cocaine Screen U Marijuana (THC) Screen Ethyl Alcohol 409 H* Ref Test (Refrig) 09/23/18 09/23/18 09/23/18 20:29 20:30 21:05 WBC RBC Hgb Hct MCV MCH MCHC RDW Plt Count Neut % (Auto) Lymph % (Auto) [place] % (Auto) Eos % (Auto) Baso % (Auto) Neut # (Auto) Lymph # (Auto) [place] # (Auto) Eos # (Auto) Baso # (Auto) ABG pH 7.44 ABG pCO2 41.2 ABG pO2 302 H* ABG HCO3 28 H ABG Total CO2 29 ABG O2 Saturation 100 ABG Base Excess 4.0 H FiO2 0.50 Sodium Potassium Chloride Carbon Dioxide BUN Creatinine Estimated GFR BUN/Creatinine Ratio Glucose Serum Osmolality Cancelled Lactate Calcium Total Bilirubin Conjugated Bilirubin Unconjugated Bilirubin AST ALT Alkaline Phosphatase Total Protein Albumin Globulin Albumin/Globulin Ratio Nasal Screen MRSA (PCR) Salicylates Urine Opiates Screen Negative Ur Oxycodone Screen Negative Urine Methadone Screen Negative Acetaminophen Ur Barbiturates Screen Negative U Tricyclic Antidepress Negative Ur Phencyclidine Scrn Negative Ur Amphetamines Screen Negative U Methamphetamines Scrn Negative Ur MDMA Scrn (Ecstasy) Negative U Benzodiazepines Scrn Negative Urine Cocaine Screen Negative U Marijuana (THC) Screen Negative Ethyl Alcohol Ref Test (Refrig) 09/23/18 09/23/18 22:55 23:00 WBC RBC Hgb Hct MCV MCH MCHC RDW Plt Count Neut % (Auto) Lymph % (Auto) [place] % (Auto) Eos % (Auto) Baso % (Auto) Neut # (Auto) Lymph # (Auto) [place] # (Auto) Eos # (Auto) Baso # (Auto) ABG pH ABG pCO2 ABG pO2 ABG HCO3 ABG Total CO2 ABG O2 Saturation ABG Base Excess FiO2 Sodium Potassium Chloride Carbon Dioxide BUN Creatinine Estimated GFR BUN/Creatinine Ratio Glucose Serum Osmolality Lactate 3.3 H Calcium Total Bilirubin Conjugated Bilirubin Unconjugated Bilirubin AST ALT Alkaline Phosphatase Total Protein Albumin Globulin Albumin/Globulin Ratio Nasal Screen MRSA (PCR) Negative for mrsa Salicylates Urine Opiates Screen Ur Oxycodone Screen Urine Methadone Screen Acetaminophen Ur Barbiturates Screen U Tricyclic Antidepress Ur Phencyclidine Scrn Ur Amphetamines Screen U Methamphetamines Scrn Ur MDMA Scrn (Ecstasy) U Benzodiazepines Scrn Urine Cocaine Screen U Marijuana (THC) Screen Ethyl Alcohol Ref Test (Refrig) Assessment & Plan Assessment & Plan narrative: Alcohol poisoning, acute, present on admission, active Intent to self-harm was indeterminate; patient does have a history of psychiatric illness and polysubstance abuse. - Admitted to the ICU - ETOH level on presentation is 409. Patient was found unresponsive in field with diminished respiratory drive. - Bilateral soft wrist restraints, nonviolent, for airway protection - Consult RT, rate protocol, vent management - Sedation with propofol, history of high tolerance to propofol and difficulty achieving/maintaining sedation; titrate to maintain a RASS score of -2 If need arises, will consider IV Ativan, IV Benadryl, IV Haldol and/or valproic acid - Banana bag Respiratory failure, acute, present on admission, stable / maintaining airway patency Secondary to alcohol toxicity - status post intubation, in field, for depressed respiratory drive and airway protection - RT consult for vent management, rate protocol - keep head of bed elevated at 30?, concern for aspiration, given multitude of intubations, strength of the gag reflex is questionable Hypochloremic hyponatremia, acute on chronic, present on admission, active Secondary to alcohol dependence and osmotic diuresis associated with alcohol use - IV fluids - correct electrolyte abnormalities Hypokalemia, acute on chronic, present on admission, active Secondary to alcohol dependence and electrolyte derangements - check magnesium - replete electrolytes accordingly History of seizures in the setting of alcohol withdrawal - seizure precautions - at high risk for seizures in the setting of alcohol toxicity and withdrawal Elevated alcohol level, acute, present on admission, active -trend ETOH level until normal -will likely need to keep him sedated until this can happen, otherwise he either exhibits labile/aggressive tendencies At high risk for self-harm and -this will need to be discussed with a.m. rounding team. Patient was just discharged from involuntary commitment. Would need to discuss plan on multi disciplinary level going forth
[2018-09-24] MEDS: POTASSIUM CHLORIDE 40 MEQ in SODIUM CHLORIDE 0.9% 500 ML 130 ML IV (03:34)
[2018-09-24] MEDS: MAGNESIUM SULFATE 2 GM, FOLIC ACID 1 MG, THIAMINE 100 MG, MULTIVITAMIN 10 ML in SODIUM ... IV (04:08)
--- NOTE | 2018-09-24 07:03 | PC.NURSE ---
NOC Shift: Pt found down, intubated in field. Pt sedated, vented. FiO2 30% P10. Pt intermittently restless, does not follow verbal commands. Notified ASSISTANT NEWS DIRECTOR meteorologist liaison, plan to leave on vent overnight sedation ordered. Pt restrained. VSS, SB on tele. IVF replacements ordered for K/Mag levels. Propofol 15 to 20mcgs/min. ICU care.
[2018-09-24] MEDS: PROPOFOL 1,000 MG/100 ML VIAL 4.2 MG IV (07:46)
[2018-09-24] MEDS: PANTOPRAZOLE 40 MG VIAL IV (08:25)
--- NOTE | 2018-09-24 08:26 | PC.NURSE ---
Addendum entered by Mary Alberto R.N. 09/24/18 13:25: pt extubated per md orders and woke up almost immediately post propofol d/c- he has eaten, drank, voided ( after removal of murphy cath)- [facility], Zeenat here to see pt and he has been accepted to a facility in [place] ( where he just was d/c'd less than 24 h ago) spoke with Lisset and given medical update - awaiting further instructions prior to dc Original Note: PT INTUBATED UPON INITAL ASSESSMENT, RESTRAINTS CHECKED AND PROPERLY SECURED, MURPHY PATENT, SB NO ECTOPY 99% SPO2 ON 35% FIO2 PER MECHANICAL VENT- PLAN TO CONTINUE SEDATION UNTIL DC PLAN MADE. PROPOFOL ADJUSTED TO 30MCG/KG/MIN
[2018-09-24 09:48] LABS: Add Manual Diff / Slide Review NO; Basophils Absolute Auto 0 /uL (0-100); Basophils Percent Auto 0.6 % (0-2); Eosinophils Absolute Auto 0 /uL (0-450); Eosinophils Percent Auto 0.7 % (2-4); Hematocrit 37.3 % (41-53); Hemoglobin 13.1 g/dL (13.5-17.5); Lymphocytes Absolute Auto 3100 /uL (1100-4500); Lymphocytes Percent Auto 60.6 % (25-40); Mean Corpuscular HGB Conc 35.2 % (30-36); Mean Corpuscular Hemoglobin 31.2 PG (26-34); Mean Corpuscular Volume 88.8 fL (80-100); Monocytes Absolute Auto 400 /uL (0-900); Monocytes Percent Auto 7.9 % (3-14); Neutrophils Absolute Auto 1600 /uL (1500-7000); Neutrophils Percent Auto 30.2 % (50-75); Platelet Count 142 X10^3/uL (150-400); Red Cell Distribution Width 12.5 % (11.6-14.8); White Blood Cell Count 5.2 X10^3/uL (4.5-11.0)
[2018-09-24 09:59] LABS: HEMOLYSIS < 15 (0-50)
--- NOTE | 2018-09-24 10:30 | CM.DANOTE ---
Addendum entered by KANDI Thompson 09/24/18 15:11: ADD: Per RN, pt getting restless after successfully extubated and MD requests RN call [place] Police to determine if they can assist with talking the pt into staying. Two police officers arrived and GHAZALA, , and RN updated them and they confirm that until pt is NIRANJAN's/Detained then they cannot force pt to stay in the hospital but police officers kindly spoke with pt and encouraged him to stay until TRAY Zeenat can arrive and assess him. Zeenat arrived and assessed the pt and detained him for Involuntary Placement for treatment and secured a bed for him back at [facility] In CD treatment. Per RN, [facility] unable to transport pt for 4 hours. GHAZALA requested CC Krista to call [facility] and she was able to secure a time for transport for 3 hours at 1800 via BLS. SW met bedside with pt again who was pacing in his room and requesting if there was any way he could get out of Involuntary Treatment. SW looked through patient's copy from Zeenat FELIZ left of his LRO (Least Restrictive Order) from his discharge from [facility] that is now revoked now that he is in the hospital for ETOH. Pt states that he was able to establish with [facility] for CD treatment and states he completed his intake assessment and was recommended for Intensive Outpt CD tx and pt plans to participate and take the bus for his 3x a week appointments. GHAZALA called [facility] and spoke to his counselor that completed his assessment and she confirms they have a copy of BETY for [facility] and SW updated on pt's current status and discussed [facility] possibly trying to coordinate with [facility] for d/c coordination from their facility to the community and outpt tx. Plan: [facility] at 1800 tonight. KANDI Thompson Addendum entered by KANDI Thompson 09/24/18 11:16: ADD: SW received a call from TRAY Epperson stating she will be bedside for assessment with pt in about an hour, around 1215 and SW discussed pt's situation and long hx of ETOH/MH. GHAZALA and TRUDY Velasco printed off requested clinical information for past few admits to the hospital along with SW notes and GHAZALA printed a snap shot of pt's many many visits to [facility] to review by Zeenat. Zeenat states she is aware that pt just discharged from [facility] and that they currently have openings. Zeenat plans to assess the pt, attempt to talk to pt's spouse, is aware of pt's pending legal issues, and will call [facility] to talk further about pt's d/c plan from their facility and possible acceptance back as well as further discussing pt getting on an LRO (Least Restrictive Order) the next time pt is discharged back to the community after treatment due to his inability to remain sober or medically safe. GHAZALA updated RN who is updating MD. BF Original Note: Patient is a 28 year old male who was admitted to the ER and then ICU on 09/23/18 for Unresponsive, found down, intubated. Patient has [facility] and [facility] for insurance and his PCP is not listed. EMR was reviewed. Per ER MD, pt still intubated and sedated and requesting DCR be dispatched to determine Involuntary Placement options. Patient was previously admitted on 08/31/18 for similar and left AMA same day before being admitted again the next day 09/01/18 and discharged 09/02/18 after DCR Vee determined pt met criteria for Involuntary Placement and found bed for pt at treatment facility via BLS transport. Patient then discharged home from treatment within the last 1-2 days and was found down again with alcohol level of 409 and brought to [facility] ED via EMS after being intubated in the field. Pt has a long hx of ETOH abuse and medical complications from use requiring multiple intubations with Involuntary Placement due to Rashad?s Law and inability to maintain sobriety despite his significant medical harm to self. Pt also with a hx of suicidal ideation and intent. GHAZALA called [employer] for an MIS Check and they confirm that the Pt has 3 Involuntary Placements for treatment with [facility] in July 2017, [facility] in Dec 2017, and [facility] Jan 2018. Patient very recently discharged home from his most recent Involuntary Placement at [facility] on August 26, 2018 and then discharged from unknown treatment facility from 09/02/18-09/22/18 to the community. Patient currently not enrolled in outpt treatment and no Least Restrictive Orders in place at this time. Pt had at least 4 ER/ICU admits for ETOH/MH in 2017, 21 visits in 2018, and 7 visits so far this year 2018. Per MD, requesting SW to help discuss pt's situation with Risk Management to create a solid tx plan for the pt since he has over 30 visits to [facility] in the past 2 years for the same medical conditions without reprieve and requesting a plan to keep pt in the ED without admitting to ICU to help reduce the high use of resources and staff planning without any change to patient's readmit risk. SW left msg for Risk Lola Medrano requesting call back and further discussion regarding above info. GHAZALA also discussed further with Dr. Houston and Hospitalist regarding Risk planning needs. SW called pt's spouse Cam and left msg requesting call back to further determine if she was able to obtain a No Contact Order with the pt and any further updates that could be helpful for d/c planning. Per MD, pt medically stable to request DCR be dispatched for bedside assessment for Involuntary Placement. GHAZALA called [facility] and provided update on the pt and requested DCR to be dispatched. Zeenat Herman DCR to be dispatched and call with her ETA for arrival at the hospital. GHAZALA updated RN and MD and awaiting DCR to arrive to assess the pt under Rashad's Law. KANDI Thompson Discharge Planning/Care Management CM Discharge Assessment Start: 09/24/18 10:24 Freq: Status: Active Protocol: Document 09/24/18 10:24 BF (Rec: 09/24/18 10:28 [id number]) Discharge Planning Assessment Assigned Building Services Technician KANDI Britt DPOA/Assigned Designee Name declines Advance Directives? No Advance Directives on File No History Provided By Patient Medical Record Has Patient been admitted in last 30 Yes days? Comment Last d/c 09/02/18 for Involuntary Placement for ETOH /suicidal ideation. At least 28 ER/admits in the past two years. Prior Living Arrangements House Household Members spouse family children Type of transporation used prior to Relies on Others admit Independent with ADL's Sort of, does not care well for self Is patient alert and oriented? Yes Needs Assistance With Managing Medications Home Chores / Shopping Caregiver for Another Yes: Parent to a young girl but does not participate in caregiving Comment CD/MH treatment but has not been able to participate in least restrictive alternatives like outpt therapy or maintain any voluntary sobriety. Patient/Family Preference Drug/Alcohol Rehab Comment Multiple D/A stays, multiple relapses once home. Barriers to Discharge Yes Comment Unable to remain sober. Constant suicidal ideation/ behaviors Discharge Plan Inpatient Rehab Unit Transportation Arrangement Pending Referrals Initiated Other Additional Comment DCR dispatched to determine Involuntary Placement Review Status In Process Please Provide Date Initial DC 09/24/18 Assessment Was Performed Next Review Type Continued Stay Review
[2018-09-24] MEDS: PROPOFOL 1,000 MG/100 ML VIAL 12.6 MG IV (10:58)
[2018-09-24 12:08] LABS: Alanine Aminotransferase 20 IU/L (21-72); Albumin 3.7 g/dL (3.5-5.0); Albumin Globulin Ratio 1.5 (1.0-2.8); Alkaline Phosphatase 48 U/L (38-126); Aspartate Aminotransferase 21 IU/L (17-59); BUN Creatinine Ratio 12.5 (6-22); Bilirubin Total 0.3 mg/dL (0.2-1.3); Blood Urea Nitrogen 10 mg/dL (9-20); Calcium 8.1 mg/dL (8.4-10.2); Carbon Dioxide 23 mmol/L (22-32); Chloride 106 mmol/L (98-107); Estimated Glomerular Filt Rate > 60.0 mL/min (>60); Ethanol (ETOH) 190 mg/dL; Globulin 2.5 g/dL (1.7-4.1); Glucose 74 mg/dL (70-100); Potassium 3.4 mmol/L (3.4-5.1); Sodium 142 mmol/L (137-145); Total Protein 6.2 g/dL (6.3-8.2)
--- NOTE | 2018-09-24 14:28 | PM.DS.1 ---
History of Present Illness Date Patient Seen: 09/23/18 Chief complaint: Found Down, Intubated Narrative: Written by Monie CROWDER: Patient is a 28-year-old male with PMH of alcohol abuse and dependence disorder, depression, suicidality, eating disorder, epilepsy, and low back pain. Patient is very familiar to this ED. Patient returned home on 09/23/2018 after spending a number of weeks in rehab. He was initially found down on the floor unresponsive by his . EMS was summoned. Patient made a comment to his prior to the event, you don't want me anymore. Uncertain of the context (this is noted in ED). Presents once again via EMS after being found down and unresponsive. Patient was intubated in field by EMS. It is being noted by EMS that patient is becoming more difficult to intubate given history of multiple intubation for airway protection or respiratory failure and lieu alcohol intoxication. It is noted that in field patient had respiratory rate less than 10. He received Narcan without improvement. Thereafter he was given 200 mg of ketamine IV and 200 mg of succinylcholine IV for intubation. He presented to the hospital already intubated. Alcohol level on presentation was 409. PH 7.44 pCO2 41 pO2 302 HCO3 28 Na 135 K 3 Cl 93 Ca 8.4, lactate 3.0. UDS is negative. CT head unremarkable for acute intracranial findings CT cervical spine revealed no acute cervical spine injury. Chest x-ray was unremarkable for cardiopulmonary findings. Discharge Providers Date of admission: 09/23/18 21:41 Discharge Date: 09/24/18 Consults: 09/24/18 02:31 Consult to Respiratory Therapy Evaluate & Treat Comment: Vent management, RATE protocol Physician Instructions: Evaluate and treat Discharge provider: Kayla Ruelas DO Summary Discharge Diagnosis: 1. Acute alcohol poisoning, present on admission. Resolved. 2. Acute hypoxemic respiratory failure, secondary to acute alcohol poisoning and inability to maintain airway, present on admission. Resolved. 3. Hypochloremic hyponatremia, acute on chronic, present on admission, active 4. Acute on chronic hypokalemia, present on admission. Resolved. 5. History of alcohol withdraw seizures. 6. At high risk for self-harm and , present on admission. Active. Hospital Course: Abhinav Herr is a 28-year-old male with a past medical history significant for alcohol abuse, depression, suicidality, eating disorder, seizures secondary to alcohol withdrawal, and low back pain who was readmitted after being found in an unresponsive state subsequently requiring intubation in the field. 1. Acute alcohol poisoning, present on admission. Resolved. -Intent to self-harm was indeterminate; patient does have a history of psychiatric illness and polysubstance abuse. -Admitted to the ICU for close observation. -Initial alcohol level was 409 and trended down. Patient was found unresponsive in field with diminished respiratory drive and subsequently intubated. Bilateral soft wrist restraints were applied for airway protection. -Sedation with propofol, history of high tolerance to propofol and difficulty achieving/maintaining sedation; titrate to maintain a RASS score of -2. -Received 1L banana bag and corrected metabolic abnormalities with potassium chloride 40 mEq x1 and IV fluids with normal saline. 2. Acute hypoxemic respiratory failure, secondary to acute alcohol poisoning and inability to maintain airway, present on admission. Resolved. -Secondary to alcohol toxicity. -Status post intubation in the field by EMS for depressed respiratory drive and airway protection. -Consulted respiratory therapy to maintain ventilator. Patient extubated successfully. -Received sedation with propofol while intubated, per historical records high tolerance to propofol and difficulty achieving sedation. Monitor patient at this time and titrate for a RASS score of -2 (desired), if need arose, we would have considered the following medications IV Benadryl, IM Zyprexa, IV fentanyl, and / or valproic acid. -Kept head of bed elevated at 30? due to concern for aspiration, given multitude of intubations the strength of his gag reflex is questionable. 3. Hypochloremic hyponatremia, acute on chronic, present on admission, active -Secondary to alcohol dependence and osmotic diuresis associated with alcohol use -Continued IV fluids with normal saline until adequately hydrated. 4. Acute on chronic hypokalemia, present on admission. Resolved. -Secondary to alcohol dependence and electrolyte derangements. -Repleted with potassium chloride 40 mEq IV x 1. Also received Banana bag. 5. History of alcohol withdraw seizures. -Continued seizure precautions. -At high risk for seizures in the setting of alcohol toxicity and withdrawal. 6. At high risk for self-harm and , present on admission. Active. -Consulted social work and [facility] and patient was detained via [facility]. Exam Vital Signs (past 8 hours): - 09/24/18 07:00 09/24/18 08:04 09/24/18 10:00 Temperature 97 F L Pulse Rate 54 L 52 L 62 Respiratory Rate 12 12 12 Blood Pressure 90/49 L 92/51 L 97/41 L Pulse Oximetry 100 100 100 09/24/18 12:00 Temperature 97.8 F Pulse Rate 92 H Respiratory Rate 18 Blood Pressure 121/67 Pulse Oximetry 100 Fraction of Inspired Oxygen 30 Oxygen Delivery Method Mechanical Ventilation Oxygen Flow Rate 14 Narrative Exam Narrative: General: Young male standing in room pacing, in no acute distress, well-developed, well-nourished, significantly anxious and disheveled, mild drowsiness but appropriately interactive with perseverance and poor insight. HEENT: Normocephalic, atraumatic. External ears without defect. Pupils equal, round, and reactive to light. Anicteric sclerae, moist conjunctivae, and no lid lag. Neck: Supple with full range of motion. No lymphadenopathy or thyromegaly. Cardiovascular: Regular rate and rhythm without murmurs, rubs, or gallops appreciated. Pulmonary: Clear to auscultation bilaterally without crackles, wheezes, or rhonchi. Normal respiratory effort with no use of accessory muscles. Abdomen: Soft, bowel sounds present, nontender, nondistended. No hepatosplenomegaly or masses appreciated. Extremities: No clubbing, cyanosis, or edema. Skin: Normal temperature, turgor, and texture; no rash, ulcers, or subcutaneous nodules appreciated. Neurological: Cranial nerves grossly intact. Psychiatric: Significantly anxious mood and flat affect. Mild drowsiness but appropriately interactive with perseverance. Poor insight into addiction and disease process. Objective Labs Result Diagrams: 09/24/18 09:37 09/24/18 09:37 Labs: Laboratory Results - last 24 hr 09/23/18 09/23/18 09/23/18 20:29 20:29 20:29 WBC 5.8 RBC 4.65 Hgb 14.3 Hct 41.3 MCV 88.7 MCH 30.8 MCHC 34.7 RDW 12.6 Plt Count 166 Neut % (Auto) 45.7 L Lymph % (Auto) 45.9 H Brown % (Auto) 7.4 Eos % (Auto) 0.2 L Baso % (Auto) 0.8 Neut # (Auto) 2700 Lymph # (Auto) 2700 Brown # (Auto) 400 Eos # (Auto) 0 Baso # (Auto) 0 ABG pH ABG pCO2 ABG pO2 ABG HCO3 ABG Total CO2 ABG O2 Saturation ABG Base Excess FiO2 Sodium 135 L Potassium 3.0 L Chloride 93 L Carbon Dioxide 25 BUN 14 Creatinine 0.70 Estimated GFR > 60.0 BUN/Creatinine Ratio 20.0 Glucose 85 Serum Osmolality Lactate 3.0 H Calcium 8.4 Total Bilirubin 0.6 Conjugated Bilirubin 0.0 Unconjugated Bilirubin 0.6 AST 23 ALT 23 Alkaline Phosphatase 52 Total Protein 7.6 Albumin 4.6 Globulin 3.0 Albumin/Globulin Ratio 1.5 Nasal Screen MRSA (PCR) Salicylates < 1.0 Urine Opiates Screen Ur Oxycodone Screen Urine Methadone Screen Acetaminophen < 10 L Ur Barbiturates Screen U Tricyclic Antidepress Ur Phencyclidine Scrn Ur Amphetamines Screen U Methamphetamines Scrn Ur MDMA Scrn (Ecstasy) U Benzodiazepines Scrn Urine Cocaine Screen U Marijuana (THC) Screen Ethyl Alcohol 409 H* Ref Test (Refrig) 09/23/18 09/23/18 09/23/18 20:29 20:30 21:05 WBC RBC Hgb Hct MCV MCH MCHC RDW Plt Count Neut % (Auto) Lymph % (Auto) Brown % (Auto) Eos % (Auto) Baso % (Auto) Neut # (Auto) Lymph # (Auto) Brown # (Auto) Eos # (Auto) Baso # (Auto) ABG pH 7.44 ABG pCO2 41.2 ABG pO2 302 H* ABG HCO3 28 H ABG Total CO2 29 ABG O2 Saturation 100 ABG Base Excess 4.0 H FiO2 0.50 Sodium Potassium Chloride Carbon Dioxide BUN Creatinine Estimated GFR BUN/Creatinine Ratio Glucose Serum Osmolality Cancelled Lactate Calcium Total Bilirubin Conjugated Bilirubin Unconjugated Bilirubin AST ALT Alkaline Phosphatase Total Protein Albumin Globulin Albumin/Globulin Ratio Nasal Screen MRSA (PCR) Salicylates Urine Opiates Screen Negative Ur Oxycodone Screen Negative Urine Methadone Screen Negative Acetaminophen Ur Barbiturates Screen Negative U Tricyclic Antidepress Negative Ur Phencyclidine Scrn Negative Ur Amphetamines Screen Negative U Methamphetamines Scrn Negative Ur MDMA Scrn (Ecstasy) Negative U Benzodiazepines Scrn Negative Urine Cocaine Screen Negative U Marijuana (THC) Screen Negative Ethyl Alcohol Ref Test (Refrig) 09/23/18 09/23/18 09/24/18 22:55 23:00 09:37 WBC 5.2 RBC 4.20 L Hgb 13.1 L Hct 37.3 L MCV 88.8 MCH 31.2 MCHC 35.2 RDW 12.5 Plt Count 142 L Neut % (Auto) 30.2 L Lymph % (Auto) 60.6 H Brown % (Auto) 7.9 Eos % (Auto) 0.7 L Baso % (Auto) 0.6 Neut # (Auto) 1600 Lymph # (Auto) 3100 Brown # (Auto) 400 Eos # (Auto) 0 Baso # (Auto) 0 ABG pH ABG pCO2 ABG pO2 ABG HCO3 ABG Total CO2 ABG O2 Saturation ABG Base Excess FiO2 Sodium Potassium Chloride Carbon Dioxide BUN Creatinine Estimated GFR BUN/Creatinine Ratio Glucose Serum Osmolality Lactate 3.3 H Calcium Total Bilirubin Conjugated Bilirubin Unconjugated Bilirubin AST ALT Alkaline Phosphatase Total Protein Albumin Globulin Albumin/Globulin Ratio Nasal Screen MRSA (PCR) Negative for mrsa Salicylates Urine Opiates Screen Ur Oxycodone Screen Urine Methadone Screen Acetaminophen Ur Barbiturates Screen U Tricyclic Antidepress Ur Phencyclidine Scrn Ur Amphetamines Screen U Methamphetamines Scrn Ur MDMA Scrn (Ecstasy) U Benzodiazepines Scrn Urine Cocaine Screen U Marijuana (THC) Screen Ethyl Alcohol Ref Test (Refrig) 09/24/18 09:37 WBC RBC Hgb Hct MCV MCH MCHC RDW Plt Count Neut % (Auto) Lymph % (Auto) Brown % (Auto) Eos % (Auto) Baso % (Auto) Neut # (Auto) Lymph # (Auto) Brown # (Auto) Eos # (Auto) Baso # (Auto) ABG pH ABG pCO2 ABG pO2 ABG HCO3 ABG Total CO2 ABG O2 Saturation ABG Base Excess FiO2 Sodium 142 Potassium 3.4 Chloride 106 Carbon Dioxide 23 BUN 10 Creatinine 0.80 Estimated GFR > 60.0 BUN/Creatinine Ratio 12.5 Glucose 74 Serum Osmolality Lactate Calcium 8.1 L Total Bilirubin 0.3 Conjugated Bilirubin Unconjugated Bilirubin AST 21 ALT 20 L Alkaline Phosphatase 48 Total Protein 6.2 L Albumin 3.7 Globulin 2.5 Albumin/Globulin Ratio 1.5 Nasal Screen MRSA (PCR) Salicylates Urine Opiates Screen Ur Oxycodone Screen Urine Methadone Screen Acetaminophen Ur Barbiturates Screen U Tricyclic Antidepress Ur Phencyclidine Scrn Ur Amphetamines Screen U Methamphetamines Scrn Ur MDMA Scrn (Ecstasy) U Benzodiazepines Scrn Urine Cocaine Screen U Marijuana (THC) Screen Ethyl Alcohol 190 Ref Test (Refrig) Discharge Plan Discharge Plan Patient Disposition: Released, Other Other facility: Treatment Rehab Under care of provider: Transportation: Ambulance Discharge comment: You are being transferred to rehabilitation center for alcohol treatment. The receiving facility has agreed to accept transfer and provide medical treatment.: Yes Discharge Med Rec/Prescriptions Prescriptions: No Action Unobtainable RF: 0 Discharge Orders: Discharge (Order); Ordered 09/24/18 Ordered By: Kayla Ruelas Provider Discharge Instructions Diet: Diet as Tolerated and Regular Visit Report/Discharge Packet Stand Alone Forms: Against Medical Advice Discharge Data Attending Provider: Monie Marin Admit Date/Time: 09/23/18 21:41 Discharges patient from system. Discharge Date/Time: 09/24/18 18:15
[2018-09-24] MEDS: LORazepam 1 MG TABLET PO (16:20)
--- NOTE | 2018-09-24 17:53 | PC.NURSE ---
Patient in room awaiting transport to rehab facility. Patient is expressing anxious behaviors and has made mult. attempts to leave ICU. An officer was called to hospital from [place] [employer] to visit and speak to patient regarding his choices of leaving the hospital AMA. Patient appeared to be calmer while officer was speaking to him in his room. Patient asked staff for a dose of medication to help with his anxiety. Call was placed to Dr. Ruelas by ICU nurse Heaven. A one time dose of Lorazepam was given to patient PO, see MAR for details. Patient states that his conversation with the officer was exactly what he needed to make his mind up for staying and waiting for transportation to rehab facility. Patient shared with this nurse his feelings of returning to halfway and that he wishes to not do so, as the officer did inform him that is what the outcome would be if he left AMA. Patient has been on the phone off/on for the last 2 hours with his and patient is at this time well behaved, calm and cooperative w/ staff members.
[2018-09-24] MEDS: LORazepam 0.5 MG TABLET PO (18:12)
== END 2018-09-24 18:15 | disposition home or self-care (01) | DRG 133 ==
LOC: ED 21:32 → ICU 21:43
PROVIDERS: Admitting Provider Nurse Practitioner Gerontology; Emergency Provider Emergency Medicine; Visit Provider Nurse Practitioner Gerontology
DX: J96.00 Acute respiratory failure, unspecified whether with hypoxia or hypercapnia (principal); T51.0X4A Toxic effect of ethanol, undetermined, initial encounter; F10.229 Alcohol dependence with intoxication, unspecified; Y90.8 Blood alcohol level of 240 mg/100 ml or more; E87.6 Hypokalemia
CPT/HCPCS: 36415; 36591; 36600; 51701; 70450; 71045; 72125; 80053; 80076; 80305; 80320; 80329; 82805; 83605; 85025; 87797; 93005; 93041; 94002; 94003; 94770; 94799; 96360; 99285; 99291; 99292; C9113; G0480; J1200; J1630; J2060; J2704; J3475; J3480

== ENCOUNTER 2018-12-02 13:29 | Emergency (ER) | payer OTHER, MEDICAID, SELFPAY ==
[2018-09-23 22:26] VITALS: BMI 21.8
[2018-09-24 09:45] VITALS: PULSE 66; RESP 12; O2SAT 97
[2018-12-02] VITALS (14 sets, daily range): BP systolic 92–130; BP diastolic 51–92; PULSE 75–96; RESP 16–24; TEMP 36.3–36.5; O2SAT 96–100
--- NOTE | 2018-12-02 13:38 | ED_ITS ---
HPI - Altered Mental Status General Chief Complaint: Toxicology Problem Stated Complaint: syncope Time Seen by Provider: 12/02/18 13:34 Source: EMS Mode of arrival: EMS Limitations: altered mental status History of Present Illness HPI narrative: Patient is a 28-year-old male who was brought in by EMS. They were called by the patient's after she found him laying in the bathroom. His reported that she found him cyanotic. Was also reported that she started chest compressions. Apparently after the 1st couple compressions the patient woke up. When EMS arrived he was maintaining his airway. He was altered. He is known to this emergency department to be an alcoholic. There was no other signs of trauma. EMS reports that the patient did walk to their gurney however did fall asleep on the way here to the ER. He did receive Narcan prior to arrival without any response. Patient unable to provide any review of systems. Related Data Home Medications Medication Instructions Recorded Confirmed Unobtainable 03/19/18 12/02/18 Allergies Allergy/AdvReac Type Severity Reaction Status Date / Time shrimp [SHRIMP] Allergy Severe THROAT Verified 12/02/18 13:59 SWELLING/HIVES diazepam [From VALIUM] Allergy Intermediate LEG Verified 12/02/18 13:59 SWELLING haloperidol [From HALDOL] Allergy Unknown DYSTONIA Verified 12/02/18 13:59 naproxen [NAPROXEN] AdvReac Mild NAUSEA/GI Verified 12/02/18 13:59 DISTRESS Review of Systems Review of Systems ROS Unobtainable: Unobtainable due to mental condition Exam Initial Vital Signs Initial Vital Signs: Vital Signs Temperature 97.7 F 12/02/18 13:30 Pulse Rate 96 H 12/02/18 13:30 Respiratory Rate 16 12/02/18 13:30 Blood Pressure 115/73 12/02/18 13:30 Pulse Oximetry 99 12/02/18 13:30 Const General: well developed HENMT Head: normal to inspection and normocephalic Eyes Pupils: PERRL Resp Effort & Inspection: normal respiratory effort Auscultation: clear to auscultation bilaterally Cardio Rate: regular rate Rhythm: regular rhythm Pulses: radial pulses present GI Inspection: non-distended Palpation: soft Skin Lesions: no lesions Rashes: no rashes Extrem General: capillary refill normal Psych Appearance: well kempt Scores GCS Izzy coma scale eye opening: To pressure Izzy coma scale verbal response: Sounds Izzy coma scale motor response: None [place] coma scale total score: 5 Course Orders Ordered: ED Orders 12/02/18 13:50 Acetaminophen Stat Complete Blood Count AUTO DIFF Stat Comprehensive Metabolic Panel Stat Ethanol (ETOH) Stat Lipase Stat Salicylate Stat 12/02/18 17:25 Urine Drug Screen, Rapid Stat Sodium Chloride (Normal Saline 0.9%) 1,000 mls @ 125 mls/hr IV CONT HOLGER Last Admin: 12/02/18 15:16 Dose: 125 mls/hr Vital Signs - 8 hr 12/02/18 13:30 12/02/18 14:00 12/02/18 14:30 Temperature 97.7 F Pulse Rate 96 H 82 96 H Respiratory Rate 16 17 18 Blood Pressure 115/73 Blood Pressure [Left Arm] 116/64 109/61 Pulse Oximetry 99 97 97 12/02/18 15:00 12/02/18 15:30 12/02/18 16:00 Temperature Pulse Rate 82 75 75 Respiratory Rate 20 17 18 Blood Pressure Blood Pressure [Left Arm] 111/54 L 107/59 L 102/51 L Pulse Oximetry 97 98 96 12/02/18 16:30 12/02/18 17:01 12/02/18 17:31 Temperature Pulse Rate 86 81 85 Respiratory Rate 24 18 20 Blood Pressure Blood Pressure [Left Arm] 92/52 L 106/73 117/68 Pulse Oximetry 97 100 100 12/02/18 18:00 12/02/18 18:32 12/02/18 19:01 Temperature Pulse Rate Respiratory Rate 20 20 Blood Pressure Blood Pressure [Left Arm] 114/92 H 115/63 130/70 Pulse Oximetry Mental Status Exam Patient Appearance: Disheveled Level of Consciousness: Obtunded Ability to Follow Directions: Poor Physical Status Respirations: Normal respiratory rate Cardiac: Regular Rhythm Circulation: Attendant Assessment of Situation Behavior necessitating restraint: ETOH/Substance Abuse Restraint risks explained to patient: No Restraint risks explained to family: No Comments Additional Comments: Patient is drunk. Unable to follow commands. Patient was placed in restraints due to the patient care plan put in place by the hospital regarding this patient. MDM - Altered Mental Status Lab Data Attestation: I reviewed the patient's lab results. Result diagrams: 12/02/18 13:50 12/02/18 13:50 Lab Results 12/02/18 12/02/18 12/02/18 Range/Units 13:50 13:50 13:50 WBC 4.9 (4.5-11.0) X10^3/uL RBC 3.97 L (4.5-5.9) X10^6/uL Hgb 12.6 L (13.5-17.5) g/dL Hct 37.5 L (41-53) % MCV 94.6 (80-100) fL MCH 31.7 (26-34) PG MCHC 33.6 (30-36) % RDW 13.0 (11.6-14.8) % Plt Count 145 L (150-400) X10^3/uL Neut % (Auto) 51.8 (50-75) % Lymph % (Auto) 39.0 (25-40) % [place] % (Auto) 7.6 (3-14) % Eos % (Auto) 1.1 L (2-4) % Baso % (Auto) 0.5 (0-2) % Neut # (Auto) 2600 (0419-2694) /uL Lymph # (Auto) 1900 (4151-8498) /uL [place] # (Auto) 400 (0-900) /uL Eos # (Auto) 100 (0-450) /uL Baso # (Auto) 0 (0-100) /uL Sodium 149 H (137-145) mmol/L Potassium 3.9 (3.4-5.1) mmol/L Chloride 113 H (98-107) mmol/L Carbon Dioxide 27 (22-32) mmol/L BUN 14 (9-20) mg/dL Creatinine 0.50 L (0.66-1.25) mg/dL Estimated GFR > 60.0 (>60) mL/min BUN/Creatinine Ratio 28.0 H (6-22) Glucose 93 (70-100) mg/dL Calcium 8.4 (8.4-10.2) mg/dL Total Bilirubin 0.3 (0.2-1.3) mg/dL AST 60 H (17-59) IU/L ALT 66 (21-72) IU/L Alkaline Phosphatase 51 (38-126) U/L Total Protein 6.6 (6.3-8.2) g/dL Albumin 3.7 (3.5-5.0) g/dL Globulin 2.9 (1.7-4.1) g/dL Albumin/Globulin Ratio 1.3 (1.0-2.8) Lipase 77 (23-300) U/L Salicylates < 1.0 (<20) mg/dL Urine Opiates Screen (Negative) Ur Oxycodone Screen (Negative) Urine Methadone Screen (Negative) Acetaminophen < 10 L (10-30) ug/mL Ur Barbiturates Screen (Negative) U Tricyclic Antidepress (Negative) Ur Phencyclidine Scrn (Negative) Ur Amphetamines Screen (Negative) U Methamphetamines Scrn (Negative) Ur MDMA Scrn (Ecstasy) (Negative) U Benzodiazepines Scrn (Negative) Urine Cocaine Screen (Negative) U Marijuana (THC) Screen (Negative) Ethyl Alcohol 344 mg/dL 12/02/18 Range/Units 17:25 WBC (4.5-11.0) X10^3/uL RBC (4.5-5.9) X10^6/uL Hgb (13.5-17.5) g/dL Hct (41-53) % MCV (80-100) fL MCH (26-34) PG MCHC (30-36) % RDW (11.6-14.8) % Plt Count (150-400) X10^3/uL Neut % (Auto) (50-75) % Lymph % (Auto) (25-40) % [place] % (Auto) (3-14) % Eos % (Auto) (2-4) % Baso % (Auto) (0-2) % Neut # (Auto) (8551-9999) /uL Lymph # (Auto) (7078-1088) /uL Stafford # (Auto) (0-900) /uL Eos # (Auto) (0-450) /uL Baso # (Auto) (0-100) /uL Sodium (137-145) mmol/L Potassium (3.4-5.1) mmol/L Chloride (98-107) mmol/L Carbon Dioxide (22-32) mmol/L BUN (9-20) mg/dL Creatinine (0.66-1.25) mg/dL Estimated GFR (>60) mL/min BUN/Creatinine Ratio (6-22) Glucose (70-100) mg/dL Calcium (8.4-10.2) mg/dL Total Bilirubin (0.2-1.3) mg/dL AST (17-59) IU/L ALT (21-72) IU/L Alkaline Phosphatase (38-126) U/L Total Protein (6.3-8.2) g/dL Albumin (3.5-5.0) g/dL Globulin (1.7-4.1) g/dL Albumin/Globulin Ratio (1.0-2.8) Lipase (23-300) U/L Salicylates (<20) mg/dL Urine Opiates Screen Negative (Negative) Ur Oxycodone Screen Negative (Negative) Urine Methadone Screen Negative (Negative) Acetaminophen (10-30) ug/mL Ur Barbiturates Screen Negative (Negative) U Tricyclic Antidepress Negative (Negative) Ur Phencyclidine Scrn Negative (Negative) Ur Amphetamines Screen Negative (Negative) U Methamphetamines Scrn Negative (Negative) Ur MDMA Scrn (Ecstasy) Negative (Negative) U Benzodiazepines Scrn Positive H (Negative) Urine Cocaine Screen Negative (Negative) U Marijuana (THC) Screen Positive H (Negative) Ethyl Alcohol mg/dL MDM Narrative Medical decision making narrative: Patient was maintaining his airway. Labs show an elevated alcohol level. After several hours of observation here in the emergency department the patient did wake up. He states that he is sober. He denies any other toxic ingestion. He is medically cleared. Patient has had multiple ER visits and hospital admissions for intoxication. The hospital does have a patient care plan in place for him. This care plan states the patient will be restrained and the DCR will be called for an involuntary room admission under [place]. When the patient was able to converse he was told that he would not be able to leave. We restraint orders were placed.DCR contacted. Care turned over to night provider to follow up on disposition. Discharge Plan Departure Prescriptions: No Action Unobtainable RF: 0
[2018-12-02 13:57] LABS: Add Manual Diff / Slide Review NO; Basophils Absolute Auto 0 /uL (0-100); Basophils Percent Auto 0.5 % (0-2); Eosinophils Absolute Auto 100 /uL (0-450); Eosinophils Percent Auto 1.1 % (2-4); Hematocrit 37.5 % (41-53); Hemoglobin 12.6 g/dL (13.5-17.5); Lymphocytes Absolute Auto 1900 /uL (1100-4500); Mean Corpuscular HGB Conc 33.6 % (30-36); Mean Corpuscular Hemoglobin 31.7 PG (26-34); Mean Corpuscular Volume 94.6 fL (80-100); Monocytes Absolute Auto 400 /uL (0-900); Monocytes Percent Auto 7.6 % (3-14); Neutrophils Absolute Auto 2600 /uL (1500-7000); Neutrophils Percent Auto 51.8 % (50-75); Platelet Count 145 X10^3/uL (150-400); Red Blood Cell Count 3.97 X10^6/uL (4.5-5.9); White Blood Cell Count 4.9 X10^3/uL (4.5-11.0)
[2018-12-02 14:09] LABS: Acetaminophen < 10 ug/mL (10-30); Alanine Aminotransferase 66 IU/L (21-72); Albumin 3.7 g/dL (3.5-5.0); Albumin Globulin Ratio 1.3 (1.0-2.8); Alkaline Phosphatase 51 U/L (38-126); Aspartate Aminotransferase 60 IU/L (17-59); Bilirubin Total 0.3 mg/dL (0.2-1.3); Blood Urea Nitrogen 14 mg/dL (9-20); Calcium 8.4 mg/dL (8.4-10.2); Carbon Dioxide 27 mmol/L (22-32); Chloride 113 mmol/L (98-107); Estimated Glomerular Filt Rate > 60.0 mL/min (>60); Globulin 2.9 g/dL (1.7-4.1); Glucose 93 mg/dL (70-100); HEMOLYSIS < 15 (0-50); Lipase 77 U/L (23-300); Potassium 3.9 mmol/L (3.4-5.1); Salicylate < 1.0 mg/dL (<20); Sodium 149 mmol/L (137-145); Total Protein 6.6 g/dL (6.3-8.2)
--- NOTE | 2018-12-02 14:16 | PC.NURSE ---
pt sleeping. I'm in the room at bedside.
[2018-12-02 14:17] LABS: Ethanol (ETOH) 344 mg/dL
--- NOTE | 2018-12-02 14:30 | PC.NURSE ---
pt sleeping with head of bed up. Door is open to [place] and i'm at bedside.
--- NOTE | 2018-12-02 14:46 | PC.NURSE ---
pt resting in bed
--- NOTE | 2018-12-02 14:47 | PC.NURSE ---
pt refusing to answer most questions. I asked if pt needed more time to use urinal for sample, he nodded and mouthed yes. asked pt if he was drinking to harm himself and he replied no.
--- NOTE | 2018-12-02 15:02 | PC.NURSE ---
pt resting in bed
[2018-12-02] MEDS: SODIUM CHLORIDE 0.9% 1,000 ML 125 ML IV (15:16)
--- NOTE | 2018-12-02 15:20 | PC.NURSE ---
pt resting in bed, door is open to hallway, lights are on in room and i'm at bedside.
--- NOTE | 2018-12-02 15:30 | PC.NURSE ---
pt sleeping, head of bed is up.
--- NOTE | 2018-12-02 16:03 | PC.NURSE ---
pt sleeping. I am at bedside
[2018-12-02 17:41] LABS: Urine Amphetamines Negative (Negative); Urine Cocaine Negative (Negative); Urine MDMA Negative (Negative); Urine Methamphetamines Negative (Negative); Urine Morphine/Opi cutoff 2000 Negative (Negative); Urine Phencyclidine Negative (Negative); Urine Tetrahydrocannabinol Positive (Negative)
[2018-12-02 17:42] LABS: Urine Barbiturates Negative (Negative); Urine Benzodiazepines Positive (Negative); Urine Methadone Negative (Negative); Urine Oxycodone Negative (Negative); Urine Tricyclic Antidepressant Negative (Negative)
[2018-12-02] MEDS: IBUPROFEN 400 MG TABLET 800 MG PO (20:08)
[2018-12-02] MEDS: NICOTINE 21 MG PATCH TOP (21:42)
--- NOTE | 2018-12-02 21:45 | PC.NURSE ---
nicotine patch placed on the back of the right upper arm. provider aware and no new orders at this time.
--- NOTE | 2018-12-02 22:30 | PC.NURSE ---
patient agitated and asking for IV to be taken out. patient requesting something to eat. patient given cookies. provider aware and no new orders at this time.
--- NOTE | 2018-12-02 23:21 | PC.NURSE ---
patient is calm and on phone does not want to move to room 13 but is calm at this point move has not started
--- NOTE | 2018-12-02 23:28 | PC.NURSE ---
patient is sitting in bed calm and on phone
[2018-12-02] MEDS: LORazepam 0.5 MG TABLET 1 MG PO (23:35)
--- NOTE | 2018-12-02 23:50 | PC.NURSE ---
patient still on phone calm
--- NOTE | 2018-12-03 00:19 | PC.NURSE ---
patient calm and did great on move
--- NOTE | 2018-12-03 00:20 | PC.NURSE ---
patient happy calm and we are having good conversation
--- NOTE | 2018-12-03 00:29 | PC.NURSE ---
Called receiving facility with updated ETA.
--- NOTE | 2018-12-03 00:31 | PC.NURSE ---
patient is calm and collect having a good conversation enjoyed erin nuñez and a sandwich
--- NOTE | 2018-12-03 00:39 | PC.NURSE ---
patient given turkey sandwich, string cheese and water. provider aware and no new orders at this time.
--- NOTE | 2018-12-03 00:59 | PC.NURSE ---
calm collect conversing politely
--- NOTE | 2018-12-03 01:00 | PC.NURSE ---
using bathroom had another sandwich and calm
--- NOTE | 2018-12-03 01:18 | PC.NURSE ---
calm and polite
--- NOTE | 2018-12-03 01:47 | PC.NURSE ---
patient is calm in good mood having some string cheese and reflecting on his choices in life
--- NOTE | 2018-12-03 02:09 | PC.NURSE ---
patient reflecting on life being calm and talkative
--- NOTE | 2018-12-03 02:12 | PC.NURSE ---
patient is calm
[2018-12-03] MEDS: LORazepam 0.5 MG TABLET 1 MG PO (02:54)
--- NOTE | 2018-12-03 03:00 | PC.NURSE ---
patient is calm laying down trying to go to sleep
--- NOTE | 2018-12-03 03:11 | PC.NURSE ---
sleeping or at least eyes closed
--- NOTE | 2018-12-03 03:17 | PC.NURSE ---
patient is relaxed and sleeping
--- NOTE | 2018-12-03 03:28 | PC.NURSE ---
patient is sleeping
--- NOTE | 2018-12-03 03:28 | PC.NURSE ---
patient is quiet and sleeping
--- NOTE | 2018-12-03 03:59 | PC.NURSE ---
tossing a little but still sleeping
[2018-12-03 06:17] VITALS: BP 145/93; PULSE 98; RESP 17; TEMP 36.8
--- NOTE | 2018-12-03 06:50 | PC.NURSE ---
awke laying calmly trying to go back to sleep
--- NOTE | 2018-12-03 06:59 | PC.NURSE ---
calm and collect went to bathroom
--- NOTE | 2018-12-03 07:18 | PC.NURSE ---
Patient is calm and sleeping
--- NOTE | 2018-12-03 07:30 | PC.NURSE ---
Patient is calm and sleeping comfortably.
--- NOTE | 2018-12-03 07:46 | PC.NURSE ---
Breakfast arrived, woke patient up. Patient sitting up, calm and eating his breakfast
--- NOTE | 2018-12-03 08:00 | PC.NURSE ---
Patient is sitting up in bed, calm and cooperative, continues eating his breakfast
--- NOTE | 2018-12-03 08:16 | PC.NURSE ---
Patient got up out of bed, asked to use the bathroom, voided, washed his hands. Asked for another breakfast sandwich, some Ativan and to make a phone call.
[2018-12-03] MEDS: LORazepam 0.5 MG TABLET 2 MG PO (08:28)
--- NOTE | 2018-12-03 08:31 | PC.NURSE ---
Patient is calm, taken dosage of Ativan from RN, talking on the phone with family.
--- NOTE | 2018-12-03 08:46 | PC.NURSE ---
Patient completed his phone call with his family, returned to his room. Remains calm and cooperative.
--- NOTE | 2018-12-03 09:00 | PC.NURSE ---
Patient is calm, sitting on the bed, with reading material, a second cup of coffee and a second breakfast sandwich.
--- NOTE | 2018-12-03 09:16 | PC.NURSE ---
Patient remains calm, sitting on the bed reading a magazine.
--- NOTE | 2018-12-03 09:21 | PC.NURSE ---
Patient received a visitor, continues to be calm
--- NOTE | 2018-12-03 09:30 | PC.NURSE ---
Patient remains calm, talking with visitor.
--- NOTE | 2018-12-03 09:36 | PC.NURSE ---
Patient's visitor has left
[2018-12-03 09:46] VITALS: BP 141/80; PULSE 98; RESP 18; TEMP 36.2; O2SAT 100
--- NOTE | 2018-12-03 09:48 | PC.NURSE ---
Took patient's vitals, patient voided in the bathroom, transportation has arrived to take patient to treatment facility.
--- NOTE | 2018-12-03 09:53 | PC.NURSE ---
At patient's request, he stated that the clothing he came in with be thrown in the trash due to being soiled.
--- NOTE | 2018-12-03 09:55 | PC.NURSE ---
Pt's belongings sent with patient. pt's brought more items for pt to take with him. those items in his possession.
--- NOTE | 2018-12-03 10:00 | PC.NURSE ---
Patient discharged at this time, transported to treatment facility.
--- NOTE | 2018-12-03 10:05 | PC.NURSE ---
attempted to call [facility] to give report. left message
== END 2018-12-03 09:59 ==
PROVIDERS: Emergency Medicine; Emergency Provider Emergency Medicine
DX: R41.82 Altered mental status, unspecified (principal); F10.929 Alcohol use, unspecified with intoxication, unspecified; Y90.8 Blood alcohol level of 240 mg/100 ml or more
CPT/HCPCS: 36415; 80053; 80305; 80320; 80329; 83690; 85025; 96360; 96361; 99285; G0480

== ENCOUNTER 2018-12-22 22:30 | Emergency (ER) | payer OTHER, MEDICAID, SELFPAY ==
[2018-09-23 22:26] VITALS: BMI 21.8
[2018-09-24 09:45] VITALS: PULSE 66; RESP 12; O2SAT 97
[2018-12-22 22:36] VITALS: BP 110/72; PULSE 47; RESP 16; TEMP 36.9; O2SAT 100
[2018-12-22 22:46] LABS: Add Manual Diff / Slide Review NO; Basophils Absolute Auto 0 /uL (0-100); Basophils Percent Auto 0.4 % (0-2); Eosinophils Absolute Auto 0 /uL (0-450); Eosinophils Percent Auto 0.4 % (2-4); Hematocrit 40.6 % (41-53); Hemoglobin 14.1 g/dL (13.5-17.5); Lymphocytes Absolute Auto 3100 /uL (1100-4500); Lymphocytes Percent Auto 37.9 % (25-40); Mean Corpuscular HGB Conc 34.8 % (30-36); Mean Corpuscular Hemoglobin 31.6 PG (26-34); Mean Corpuscular Volume 90.9 fL (80-100); Monocytes Absolute Auto 400 /uL (0-900); Monocytes Percent Auto 5.4 % (3-14); Neutrophils Absolute Auto 4500 /uL (1500-7000); Neutrophils Percent Auto 55.9 % (50-75); Platelet Count 118 X10^3/uL (150-400); Red Blood Cell Count 4.47 X10^6/uL (4.5-5.9); Red Cell Distribution Width 12.5 % (11.6-14.8)
[2018-12-22] MEDS: SODIUM CHLORIDE 0.9% 1,000 ML 150 ML IV (22:50)
[2018-12-22 22:58] LABS: Acetaminophen < 10 ug/mL (10-30); Alanine Aminotransferase 23 IU/L (21-72); Albumin 4.5 g/dL (3.5-5.0); Albumin Globulin Ratio 1.5 (1.0-2.8); Alkaline Phosphatase 53 U/L (38-126); Aspartate Aminotransferase 29 IU/L (17-59); Bilirubin Total 0.4 mg/dL (0.2-1.3); Bilirubin Unconjugated 0.2 mg/dL (0.0-1.1); Blood Urea Nitrogen 12 mg/dL (9-20); Carbon Dioxide 26 mmol/L (22-32); Chloride 109 mmol/L (98-107); Estimated Glomerular Filt Rate > 60.0 mL/min (>60); Glucose 89 mg/dL (70-100); HEMOLYSIS < 15 (0-50); Potassium 3.4 mmol/L (3.4-5.1); Salicylate < 1.0 mg/dL (<20); Sodium 148 mmol/L (137-145); Total Protein 7.5 g/dL (6.3-8.2)
[2018-12-22 23:01] VITALS: BP 110/67; PULSE 52; RESP 16; O2SAT 100
[2018-12-22 23:05] LABS: Ethanol (ETOH) 344 mg/dL
[2018-12-22 23:09] LABS: Lactate (Lactic Acid) 1.9 mmol/L (0.7-2.1)
[2018-12-22 23:34] LABS: Urine Amphetamines Negative (Negative); Urine Barbiturates Negative (Negative); Urine Benzodiazepines Negative (Negative); Urine Cocaine Negative (Negative); Urine MDMA Negative (Negative); Urine Methadone Negative (Negative); Urine Methamphetamines Negative (Negative); Urine Morphine/Opi cutoff 2000 Negative (Negative); Urine Oxycodone Negative (Negative); Urine Phencyclidine Negative (Negative); Urine Tetrahydrocannabinol Positive (Negative); Urine Tricyclic Antidepressant Negative (Negative)
[2018-12-23] VITALS (10 sets, daily range): BP systolic 96–113; BP diastolic 58–77; PULSE 50–86; RESP 12–16; O2SAT 98–100
--- NOTE | 2018-12-23 03:20 | PC.NURSE ---
Per Dr. Rg request SERVICE DELIVERY ANALYST called A triage line to obtain further information on the less restrictive plan ordered by court system. [facility] triage line reported that they have no record of pt less restrictive plan on file and Dr. Rg updated.
--- NOTE | 2018-12-23 03:55 | PC.NURSE ---
Pt up out of bed in room, drowsy, vomited and assisted with gown change, given more warm blankets and assisted back to bed by PARACHUTE FOLDER. Dr. Rg aware.
--- NOTE | 2018-12-23 03:58 | PC.NURSE ---
MOSAIC LAYER note patient got up. Patient wandered around room for a few seconds, eyes not opened. Patient wasn't following directions on getting back into bed, instead he got himself wrapped in all the cords. He threw up. We changed his gown, got him more warm blankets, and got him back hooked up with all the monitors.
--- NOTE | 2018-12-23 04:11 | ED.ALCOHOL ---
HPI - Alcohol General Chief Complaint: Toxicology Problem Stated Complaint: ETOH Time Seen by Provider: 12/22/18 22:30 Source: EMS Mode of arrival: EMS Limitations: altered mental status History of Present Illness HPI narrative: 28-year-old male with extensive history with our Emergency Department due to alcohol abuse presents by EMS secondary to being found on the ground near and a dumpster with presumed alcohol abuse. He smells of alcohol and states he had been drinking. No signs of injury. Maintaining airway. Recently started Vivitrol. complaint: alcohol intoxication Last drink: unknown Chronic alcohol use: Yes Previous visits for alcohol intoxication: Yes Recent trauma: No Related Data Home Medications Medication Instructions Recorded Confirmed Unobtainable 03/19/18 12/02/18 Allergies Allergy/AdvReac Type Severity Reaction Status Date / Time shrimp [SHRIMP] Allergy Severe THROAT Verified 12/22/18 22:42 SWELLING/HIVES diazepam [From VALIUM] Allergy Intermediate LEG Verified 12/22/18 22:42 SWELLING haloperidol [From HALDOL] Allergy Unknown DYSTONIA Verified 12/22/18 22:42 naproxen [NAPROXEN] AdvReac Mild NAUSEA/GI Verified 12/22/18 22:42 DISTRESS Review of Systems Review of Systems ROS Unobtainable: Unobtainable due to mental status/LOC [facility] Medical History Alcoholism (Acute) Depression (Acute) Eating disorder (Acute) Epilepsy (Acute) Low back pain (Acute) Family History Grandfather Type 2 diabetes mellitus without complication, unspecified penitentiary insulin use status Grandmother Type 2 diabetes mellitus without complication, unspecified 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 Social History household members: spouse, family and children Smoking Status: Unknown if ever smoked alcohol intake: current Family History Grandfather Type 2 diabetes mellitus without complication, unspecified penitentiary insulin use status Grandmother Type 2 diabetes mellitus without complication, unspecified penitentiary insulin use status Mother Uncomplicated asthma, unspecified asthma severity Sister Uncomplicated asthma, unspecified asthma severity Unknown No problems noted. Social History household members: spouse, family and children Smoking Status: Unknown if ever smoked alcohol intake: current Exam Narrative Exam Narrative: GENERAL: 28-year-old male obtained undid, unresponsive, maintaining airway, controlling secretions, intact gag reflex HEAD: Atraumatic. Normocephalic. No temporal or scalp tenderness. EYES: Pupils equal round and reactive. Extraocular motions intact. No scleral icterus. No injection or drainage. ENT: Nose without bleeding, purulent drainage or septal hematoma. Throat without erythema, tonsillar hypertrophy or exudate. Uvula midline. Airway patent. NECK: Trachea midline. No JVD or lymphadenopathy. Supple, nontender, no meningeal signs. CARDIOVASCULAR: Regular rate and rhythm without murmurs, gallops, or rubs. RESPIRATORY: Clear to auscultation. Breath sounds equal bilaterally. No wheezes, rales, or rhonchi. GASTROINTESTINAL: Abdomen soft, non-tender, nondistended. No hepato-splenomegaly, or palpable masses. No guarding. EXTREMITIES: No clubbing, cyanosis, or edema. No joint tenderness, effusion, or edema noted. BACK: Nontender without deformity or crepitance. No flank tenderness. SKIN: No rash or erythema. Initial Vital Signs Initial Vital Signs: Vital Signs Temperature 98.5 F 12/22/18 22:36 Pulse Rate 47 L 12/22/18 22:36 Respiratory Rate 16 12/22/18 22:36 Blood Pressure 110/72 12/22/18 22:36 Pulse Oximetry 100 12/22/18 22:36 Course Orders Ordered: ED Orders 12/22/18 22:41 Acetaminophen Stat Complete Blood Count AUTO DIFF Stat Comprehensive Metabolic Panel Stat Ethanol (ETOH) Stat Hepatic (Liver) Panel Stat Salicylate Stat 12/22/18 22:50 Lactate (Lactic Acid) Stat 12/22/18 23:20 Urine Drug Screen, Rapid Stat Sodium Chloride (Normal Saline 0.9%) 1,000 mls @ 150 mls/hr IV CONT HOLGER Last Infusion: 12/23/18 05:46 Dose: 150 mls/hr Admin: 12/22/18 22:50 Dose: 150 mls/hr Reevaluation(s) Reevaluation #1: Patient moving all extremities, recently hopped up off the cart and was easily encouraged to get back in bed Reevaluation #2: Patient is awake, alert and oriented. He is speaking clearly without slurring words. He denies suicidal or homicidal ideation. He has no shoes and though he wants to leave he will stay until his mother comes to get him Time: 06:44 Vital Signs - 8 hr 12/22/18 23:01 12/23/18 00:30 12/23/18 01:31 Pulse Rate 52 L 50 L 59 L Respiratory Rate 16 14 13 Blood Pressure [Left Arm] 110/67 105/58 L 105/66 Pulse Oximetry 100 100 98 12/23/18 02:00 12/23/18 03:00 12/23/18 04:00 Pulse Rate 52 L 53 L 54 L Respiratory Rate 13 13 12 Blood Pressure [Left Arm] 106/77 96/59 L 105/64 Pulse Oximetry 100 99 99 12/23/18 05:00 12/23/18 05:30 12/23/18 06:10 Pulse Rate 52 L 57 L 50 L Respiratory Rate 12 15 12 Blood Pressure [Left Arm] 103/61 109/63 112/72 Pulse Oximetry 99 100 99 12/23/18 06:30 Pulse Rate 85 Respiratory Rate 16 Blood Pressure [Left Arm] 112/76 Pulse Oximetry 99 MDM - Alcohol Lab Data Result diagrams: 12/22/18 22:41 12/22/18 22:41 Labs: Lab Results 12/22/18 12/22/18 12/22/18 Range/Units 22:41 22:41 22:50 WBC 8.0 (4.5-11.0) X10^3/uL RBC 4.47 L (4.5-5.9) X10^6/uL Hgb 14.1 (13.5-17.5) g/dL Hct 40.6 L (41-53) % MCV 90.9 (80-100) fL MCH 31.6 (26-34) PG MCHC 34.8 (30-36) % RDW 12.5 (11.6-14.8) % Plt Count 118 L (150-400) X10^3/uL Neut % (Auto) 55.9 (50-75) % Lymph % (Auto) 37.9 (25-40) % [place] % (Auto) 5.4 (3-14) % Eos % (Auto) 0.4 L (2-4) % Baso % (Auto) 0.4 (0-2) % Neut # (Auto) 4500 (3288-2539) /uL Lymph # (Auto) 3100 (6229-8664) /uL [place] # (Auto) 400 (0-900) /uL Eos # (Auto) 0 (0-450) /uL Baso # (Auto) 0 (0-100) /uL Sodium 148 H (137-145) mmol/L Potassium 3.4 (3.4-5.1) mmol/L Chloride 109 H (98-107) mmol/L Carbon Dioxide 26 (22-32) mmol/L BUN 12 (9-20) mg/dL Creatinine 0.80 (0.66-1.25) mg/dL Estimated GFR > 60.0 (>60) mL/min BUN/Creatinine Ratio 15.0 (6-22) Glucose 89 (70-100) mg/dL Lactate 1.9 (0.7-2.1) mmol/L Calcium 9.0 (8.4-10.2) mg/dL Total Bilirubin 0.4 (0.2-1.3) mg/dL Conjugated Bilirubin 0.0 (0.0-0.3) md/dL Unconjugated Bilirubin 0.2 (0.0-1.1) mg/dL AST 29 (17-59) IU/L ALT 23 (21-72) IU/L Alkaline Phosphatase 53 (38-126) U/L Total Protein 7.5 (6.3-8.2) g/dL Albumin 4.5 (3.5-5.0) g/dL Globulin 3.0 (1.7-4.1) g/dL Albumin/Globulin Ratio 1.5 (1.0-2.8) Salicylates < 1.0 (<20) mg/dL Urine Opiates Screen (Negative) Ur Oxycodone Screen (Negative) Urine Methadone Screen (Negative) Acetaminophen < 10 L (10-30) ug/mL Ur Barbiturates Screen (Negative) U Tricyclic Antidepress (Negative) Ur Phencyclidine Scrn (Negative) Ur Amphetamines Screen (Negative) U Methamphetamines Scrn (Negative) Ur MDMA Scrn (Ecstasy) (Negative) U Benzodiazepines Scrn (Negative) Urine Cocaine Screen (Negative) U Marijuana (THC) Screen (Negative) Ethyl Alcohol 344 mg/dL 12/22/18 Range/Units 23:20 WBC (4.5-11.0) X10^3/uL RBC (4.5-5.9) X10^6/uL Hgb (13.5-17.5) g/dL Hct (41-53) % MCV (80-100) fL MCH (26-34) PG MCHC (30-36) % RDW (11.6-14.8) % Plt Count (150-400) X10^3/uL Neut % (Auto) (50-75) % Lymph % (Auto) (25-40) % [place] % (Auto) (3-14) % Eos % (Auto) (2-4) % Baso % (Auto) (0-2) % Neut # (Auto) (4618-6798) /uL Lymph # (Auto) (0816-5628) /uL [place] # (Auto) (0-900) /uL Eos # (Auto) (0-450) /uL Baso # (Auto) (0-100) /uL Sodium (137-145) mmol/L Potassium (3.4-5.1) mmol/L Chloride (98-107) mmol/L Carbon Dioxide (22-32) mmol/L BUN (9-20) mg/dL Creatinine (0.66-1.25) mg/dL Estimated GFR (>60) mL/min BUN/Creatinine Ratio (6-22) Glucose (70-100) mg/dL Lactate (0.7-2.1) mmol/L Calcium (8.4-10.2) mg/dL Total Bilirubin (0.2-1.3) mg/dL Conjugated Bilirubin (0.0-0.3) md/dL Unconjugated Bilirubin (0.0-1.1) mg/dL AST (17-59) IU/L ALT (21-72) IU/L Alkaline Phosphatase (38-126) U/L Total Protein (6.3-8.2) g/dL Albumin (3.5-5.0) g/dL Globulin (1.7-4.1) g/dL Albumin/Globulin Ratio (1.0-2.8) Salicylates (<20) mg/dL Urine Opiates Screen Negative (Negative) Ur Oxycodone Screen Negative (Negative) Urine Methadone Screen Negative (Negative) Acetaminophen (10-30) ug/mL Ur Barbiturates Screen Negative (Negative) U Tricyclic Antidepress Negative (Negative) Ur Phencyclidine Scrn Negative (Negative) Ur Amphetamines Screen Negative (Negative) U Methamphetamines Scrn Negative (Negative) Ur MDMA Scrn (Ecstasy) Negative (Negative) U Benzodiazepines Scrn Negative (Negative) Urine Cocaine Screen Negative (Negative) U Marijuana (THC) Screen Positive H (Negative) Ethyl Alcohol mg/dL Discharge Plan Departure Patient Disposition: Home Clinical Impression: Alcohol intoxication Instructions: DI for Alcohol Abuse Activity Restrictions/Additional Instructions: *You have been diagnosed with [alcohol intoxication] *What to do: * continue to Take medications as directed *Follow up with your primary care provider in 2-3 days, call for an appointment. Let them know you were seen in the Emergency Department and that we ask that you be seen in follow up *Return to ER if you should have any new, worsening or concerning symptoms Prescriptions: No Action Unobtainable RF: 0
--- NOTE | 2018-12-23 04:14 | ED_ITS ---
HPI - Alcohol General Chief Complaint: Toxicology Problem Stated Complaint: ETOH Time Seen by Provider: 12/22/18 22:30 Source: EMS Mode of arrival: EMS Limitations: altered mental status History of Present Illness HPI narrative: 28-year-old male with extensive history with our Emergency Department due to alcohol abuse presents by EMS secondary to being found on the ground near and a dumpster with presumed alcohol abuse. He smells of alcohol and states he had been drinking. No signs of injury. Maintaining airway. Recently started Vivitrol. complaint: alcohol intoxication Last drink: unknown Chronic alcohol use: Yes Previous visits for alcohol intoxication: Yes Recent trauma: No Related Data Home Medications Medication Instructions Recorded Confirmed Unobtainable 03/19/18 12/02/18 Allergies Allergy/AdvReac Type Severity Reaction Status Date / Time shrimp [SHRIMP] Allergy Severe THROAT Verified 12/22/18 22:42 SWELLING/HIVES diazepam [From VALIUM] Allergy Intermediate LEG Verified 12/22/18 22:42 SWELLING haloperidol [From HALDOL] Allergy Unknown DYSTONIA Verified 12/22/18 22:42 naproxen [NAPROXEN] AdvReac Mild NAUSEA/GI Verified 12/22/18 22:42 DISTRESS Review of Systems Review of Systems ROS Unobtainable: Unobtainable due to mental status/LOC [facility] Medical History Alcoholism (Acute) Depression (Acute) Eating disorder (Acute) Epilepsy (Acute) Low back pain (Acute) Family History Grandfather Type 2 diabetes mellitus without complication, unspecified custodial insulin use status Grandmother Type 2 diabetes mellitus without complication, 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 Social History household members: spouse, family and children Smoking Status: Unknown if ever smoked alcohol intake: current Family History Grandfather Type 2 diabetes mellitus without complication, unspecified custodial insulin use status Grandmother Type 2 diabetes mellitus without complication, unspecified custodial insulin use status Mother Uncomplicated asthma, unspecified asthma severity Sister Uncomplicated asthma, unspecified asthma severity Unknown No problems noted. Social History household members: spouse, family and children Smoking Status: Unknown if ever smoked alcohol intake: current Exam Narrative Exam Narrative: GENERAL: 28-year-old male obtained undid, unresponsive, maintaining airway, controlling secretions, intact gag reflex HEAD: Atraumatic. Normocephalic. No temporal or scalp tenderness. EYES: Pupils equal round and reactive. Extraocular motions intact. No scleral icterus. No injection or drainage. ENT: Nose without bleeding, purulent drainage or septal hematoma. Throat without erythema, tonsillar hypertrophy or exudate. Uvula midline. Airway patent. NECK: Trachea midline. No JVD or lymphadenopathy. Supple, nontender, no meningeal signs. CARDIOVASCULAR: Regular rate and rhythm without murmurs, gallops, or rubs. RESPIRATORY: Clear to auscultation. Breath sounds equal bilaterally. No wheezes, rales, or rhonchi. GASTROINTESTINAL: Abdomen soft, non-tender, nondistended. No hepato- splenomegaly, or palpable masses. No guarding. EXTREMITIES: No clubbing, cyanosis, or edema. No joint tenderness, effusion, or edema noted. BACK: Nontender without deformity or crepitance. No flank tenderness. SKIN: No rash or erythema. Initial Vital Signs Initial Vital Signs: Vital Signs Temperature 98.5 F 12/22/18 22:36 Pulse Rate 47 L 12/22/18 22:36 Respiratory Rate 16 12/22/18 22:36 Blood Pressure 110/72 12/22/18 22:36 Pulse Oximetry 100 12/22/18 22:36 Course Orders Ordered: ED Orders 12/22/18 22:41 Acetaminophen Stat Complete Blood Count AUTO DIFF Stat Comprehensive Metabolic Panel Stat Ethanol (ETOH) Stat Hepatic (Liver) Panel Stat Salicylate Stat 12/22/18 22:50 Lactate (Lactic Acid) Stat 12/22/18 23:20 Urine Drug Screen, Rapid Stat Sodium Chloride (Normal Saline 0.9%) 1,000 mls @ 150 mls/hr IV CONT HOLGER Last Infusion: 12/23/18 05:46 Dose: 150 mls/hr Admin: 12/22/18 22:50 Dose: 150 mls/hr Reevaluation(s) Reevaluation #1: Patient moving all extremities, recently hopped up off the cart and was easily encouraged to get back in bed Reevaluation #2: Patient is awake, alert and oriented. He is speaking clearly without slurring words. He denies suicidal or homicidal ideation. He has no shoes and though he wants to leave he will stay until his mother comes to get him Time: 06:44 Vital Signs - 8 hr 12/22/18 23:01 12/23/18 00:30 12/23/18 01:31 Pulse Rate 52 L 50 L 59 L Respiratory Rate 16 14 13 Blood Pressure [Left Arm] 110/67 105/58 L 105/66 Pulse Oximetry 100 100 98 12/23/18 02:00 12/23/18 03:00 12/23/18 04:00 Pulse Rate 52 L 53 L 54 L Respiratory Rate 13 13 12 Blood Pressure [Left Arm] 106/77 96/59 L 105/64 Pulse Oximetry 100 99 99 12/23/18 05:00 12/23/18 05:30 12/23/18 06:10 Pulse Rate 52 L 57 L 50 L Respiratory Rate 12 15 12 Blood Pressure [Left Arm] 103/61 109/63 112/72 Pulse Oximetry 99 100 99 12/23/18 06:30 Pulse Rate 85 Respiratory Rate 16 Blood Pressure [Left Arm] 112/76 Pulse Oximetry 99 MDM - Alcohol Lab Data Result diagrams: 12/22/18 22:41 12/22/18 22:41 Labs: Lab Results 12/22/18 12/22/18 12/22/18 Range/Units 22:41 22:41 22:50 WBC 8.0 (4.5-11.0) X10^3/uL RBC 4.47 L (4.5-5.9) X10^6/uL Hgb 14.1 (13.5-17.5) g/dL Hct 40.6 L (41-53) % MCV 90.9 (80-100) fL MCH 31.6 (26-34) PG MCHC 34.8 (30-36) % RDW 12.5 (11.6-14.8) % Plt Count 118 L (150-400) X10^3/uL Neut % (Auto) 55.9 (50-75) % Lymph % (Auto) 37.9 (25-40) % [place] % (Auto) 5.4 (3-14) % Eos % (Auto) 0.4 L (2-4) % Baso % (Auto) 0.4 (0-2) % Neut # (Auto) 4500 (0253-4522) /uL Lymph # (Auto) 3100 (0647-8198) /uL [place] # (Auto) 400 (0-900) /uL Eos # (Auto) 0 (0-450) /uL Baso # (Auto) 0 (0-100) /uL Sodium 148 H (137-145) mmol/L Potassium 3.4 (3.4-5.1) mmol/L Chloride 109 H (98-107) mmol/L Carbon Dioxide 26 (22-32) mmol/L BUN 12 (9-20) mg/dL Creatinine 0.80 (0.66-1.25) mg/dL Estimated GFR > 60.0 (>60) mL/min BUN/Creatinine Ratio 15.0 (6-22) Glucose 89 (70-100) mg/dL Lactate 1.9 (0.7-2.1) mmol/L Calcium 9.0 (8.4-10.2) mg/dL Total Bilirubin 0.4 (0.2-1.3) mg/dL Conjugated Bilirubin 0.0 (0.0-0.3) md/dL Unconjugated Bilirubin 0.2 (0.0-1.1) mg/dL AST 29 (17-59) IU/L ALT 23 (21-72) IU/L Alkaline Phosphatase 53 (38-126) U/L Total Protein 7.5 (6.3-8.2) g/dL Albumin 4.5 (3.5-5.0) g/dL Globulin 3.0 (1.7-4.1) g/dL Albumin/Globulin Ratio 1.5 (1.0-2.8) Salicylates < 1.0 (<20) mg/dL Urine Opiates Screen (Negative) Ur Oxycodone Screen (Negative) Urine Methadone Screen (Negative) Acetaminophen < 10 L (10-30) ug/mL Ur Barbiturates Screen (Negative) U Tricyclic Antidepress (Negative) Ur Phencyclidine Scrn (Negative) Ur Amphetamines Screen (Negative) U Methamphetamines Scrn (Negative) Ur MDMA Scrn (Ecstasy) (Negative) U Benzodiazepines Scrn (Negative) Urine Cocaine Screen (Negative) U Marijuana (THC) Screen (Negative) Ethyl Alcohol 344 mg/dL 12/22/18 Range/Units 23:20 WBC (4.5-11.0) X10^3/uL RBC (4.5-5.9) X10^6/uL Hgb (13.5-17.5) g/dL Hct (41-53) % MCV (80-100) fL MCH (26-34) PG MCHC (30-36) % RDW (11.6-14.8) % Plt Count (150-400) X10^3/uL Neut % (Auto) (50-75) % Lymph % (Auto) (25-40) % [place] % (Auto) (3-14) % Eos % (Auto) (2-4) % Baso % (Auto) (0-2) % Neut # (Auto) (3267-2151) /uL Lymph # (Auto) (2233-4380) /uL [place] # (Auto) (0-900) /uL Eos # (Auto) (0-450) /uL Baso # (Auto) (0-100) /uL Sodium (137-145) mmol/L Potassium (3.4-5.1) mmol/L Chloride (98-107) mmol/L Carbon Dioxide (22-32) mmol/L BUN (9-20) mg/dL Creatinine (0.66-1.25) mg/dL Estimated GFR (>60) mL/min BUN/Creatinine Ratio (6-22) Glucose (70-100) mg/dL Lactate (0.7-2.1) mmol/L Calcium (8.4-10.2) mg/dL Total Bilirubin (0.2-1.3) mg/dL Conjugated Bilirubin (0.0-0.3) md/dL Unconjugated Bilirubin (0.0-1.1) mg/dL AST (17-59) IU/L ALT (21-72) IU/L Alkaline Phosphatase (38-126) U/L Total Protein (6.3-8.2) g/dL Albumin (3.5-5.0) g/dL Globulin (1.7-4.1) g/dL Albumin/Globulin Ratio (1.0-2.8) Salicylates (<20) mg/dL Urine Opiates Screen Negative (Negative) Ur Oxycodone Screen Negative (Negative) Urine Methadone Screen Negative (Negative) Acetaminophen (10-30) ug/mL Ur Barbiturates Screen Negative (Negative) U Tricyclic Antidepress Negative (Negative) Ur Phencyclidine Scrn Negative (Negative) Ur Amphetamines Screen Negative (Negative) U Methamphetamines Scrn Negative (Negative) Ur MDMA Scrn (Ecstasy) Negative (Negative) U Benzodiazepines Scrn Negative (Negative) Urine Cocaine Screen Negative (Negative) U Marijuana (THC) Screen Positive H (Negative) Ethyl Alcohol mg/dL Discharge Plan Departure Patient Disposition: Home Clinical Impression: Alcohol intoxication Instructions: DI for Alcohol Abuse Activity Restrictions/Additional Instructions: *You have been diagnosed with [alcohol intoxication] *What to do: * continue to Take medications as directed *Follow up with your primary care provider in 2-3 days, call for an appointment. Let them know you were seen in the Emergency Department and that we ask that you be seen in follow up *Return to ER if you should have any new, worsening or concerning symptoms Prescriptions: No Action Unobtainable RF: 0
--- NOTE | 2018-12-23 06:37 | PC.NURSE ---
Pt alert and oriented in room speaking with Dr. Rg, pt denies wanting to harm himself or others. Pt Mom enroute to pickup pt for DC.
== END 2018-12-23 09:12 | disposition home or self-care (01) ==
PROVIDERS: Emergency Provider Emergency Medicine
DX: F10.929 Alcohol use, unspecified with intoxication, unspecified (principal)
CPT/HCPCS: 36415; 80053; 80076; 80305; 80320; 80329; 83605; 85025; 96360; 96361; 99284; 99285; G0480

== ENCOUNTER 2019-04-09 21:48 | Emergency (ER) | payer OTHER, MEDICAID, SELFPAY ==
[2018-09-23 22:26] VITALS: BMI 21.8
[2018-09-24 09:45] VITALS: PULSE 66; RESP 12; O2SAT 97
[2019-04-09] VITALS (9 sets, daily range): BP systolic 103–110; BP diastolic 56–73; PULSE 57–80; RESP 15–18; TEMP 36.6; O2SAT 97–100
[2019-04-09] MEDS: SODIUM CHLORIDE 0.9% 1,000 ML 125 ML IV (22:00)
[2019-04-09 22:14] LABS: Add Manual Diff / Slide Review NO; Basophils Absolute Auto 100 /uL (0-100); Basophils Percent Auto 0.8 % (0-2); Eosinophils Absolute Auto 100 /uL (0-450); Hematocrit 41.2 % (41-53); Hemoglobin 13.8 g/dL (13.5-17.5); Lymphocytes Absolute Auto 2800 /uL (1100-4500); Lymphocytes Percent Auto 43.6 % (25-40); Mean Corpuscular HGB Conc 33.5 % (30-36); Mean Corpuscular Hemoglobin 31.8 PG (26-34); Mean Corpuscular Volume 95.2 fL (80-100); Monocytes Absolute Auto 400 /uL (0-900); Monocytes Percent Auto 6.1 % (3-14); Neutrophils Absolute Auto 3200 /uL (1500-7000); Neutrophils Percent Auto 48.5 % (50-75); Platelet Count 178 X10^3/uL (150-400); Red Blood Cell Count 4.33 X10^6/uL (4.5-5.9); Red Cell Distribution Width 14.7 % (11.6-14.8); White Blood Cell Count 6.5 X10^3/uL (4.5-11.0)
[2019-04-09 22:26] LABS: Ammonia (NH3) < 9.0 umol/L (9-30)
[2019-04-09 22:27] LABS: Acetaminophen < 10 ug/mL (10-30); Alanine Aminotransferase 39 IU/L (<50); Albumin 4.3 g/dL (3.5-5.0); Albumin Globulin Ratio 1.4 (1.0-2.8); Alkaline Phosphatase 54 U/L (38-126); Aspartate Aminotransferase 37 IU/L (17-59); BUN Creatinine Ratio 17.5 (6-22); Bilirubin Total 0.4 mg/dL (0.2-1.3); Blood Urea Nitrogen 14 mg/dL (9-20); Calcium 8.8 mg/dL (8.4-10.2); Carbon Dioxide 26 mmol/L (22-32); Chloride 109 mmol/L (98-107); Estimated Glomerular Filt Rate > 60.0 mL/min (>60); Globulin 3.1 g/dL (1.7-4.1); Glucose 84 mg/dL (70-100); HEMOLYSIS < 15 (0-50); Lipase 128 U/L (23-300); Potassium 3.9 mmol/L (3.4-5.1); Salicylate < 1.0 mg/dL (<20); Sodium 147 mmol/L (137-145); Total Protein 7.4 g/dL (6.3-8.2)
[2019-04-09 22:28] LABS: Lactate (Lactic Acid) 2.4 mmol/L (0.7-2.1); Magnesium 1.7 mg/dL (1.6-2.3); Phosphorous 4.2 mg/dL (2.5-4.5)
[2019-04-09 22:30] LABS: Ketones (Beta-Hydroxybutyrate) 0.12 mmol/L (<0.27)
[2019-04-09 22:33] LABS: Ur Creatinine 20 (Normal); Ur Specific Gravity 1.015 (Normal); Urine pH 5 (Normal)
[2019-04-09 22:34] LABS: Ethanol (ETOH) 377 mg/dL; UR Morphine/Opiate cutoff 300 Negative (Negative); Urine Amphetamines Negative (Negative); Urine Barbiturates Negative (Negative); Urine Benzodiazepines Negative (Negative); Urine Cocaine Negative (Negative); Urine MDMA Negative (Negative); Urine Methadone Negative (Negative); Urine Methamphetamines Negative (Negative); Urine Oxycodone Negative (Negative); Urine Phencyclidine Negative (Negative); Urine Tetrahydrocannabinol Positive (Negative); Urine Tricyclic Antidepressant Negative (Negative)
--- NOTE | 2019-04-09 22:42 | ED.ALCOHOL ---
HPI - Alcohol <David Geronimo DO - Last Filed: 04/10/19 18:01> General Chief Complaint: Toxicology Problem Stated Complaint: unresponsive Time Seen by Provider: 04/09/19 21:50 Source: EMS Mode of arrival: EMS Limitations: altered mental status History of Present Illness HPI narrative: 29-year-old male well known to myself in this emergency department is having issues with alcohol abuse brought in by EMS after they were called by the patient's . EMS reported that they found the patient outside of his apartment. Was unresponsive. EMS reported no signs of trauma. They were told that patient had most likely been drinking this evening. They are also some reports that he potentially was ingesting rubbing alcohol. They gave the patient to mg of Narcan prior to arrival without any improvement of symptoms. Was maintaining his airway. Patient unable to provide any review of systems or HPI. Related Data Home Medications Medication Instructions Recorded Confirmed Unobtainable 03/19/18 12/02/18 Allergies Allergy/AdvReac Type Severity Reaction Status Date / Time shrimp [SHRIMP] Allergy Severe THROAT Verified 12/22/18 22:42 SWELLING/HIVES diazepam [From VALIUM] Allergy Intermediate LEG Verified 12/22/18 22:42 SWELLING haloperidol [From HALDOL] Allergy Unknown DYSTONIA Verified 12/22/18 22:42 naproxen [NAPROXEN] AdvReac Mild NAUSEA/GI Verified 12/22/18 22:42 DISTRESS Review of Systems <DO Laisha Denton Last Filed: 04/10/19 18:01> Review of Systems ROS Unobtainable: Unobtainable due to mental status/LOC Patient History <DO Laisha Denton Last Filed: 04/10/19 18:01> Medical History Alcoholism (Acute) Depression (Acute) Eating disorder (Acute) Epilepsy (Acute) Low back pain (Acute) Social History household members: spouse, family and children Smoking Status: Unknown if ever smoked alcohol intake: current alcohol intake frequency: 3 or more drinks per day Alcohol type: other Substance Use Type: marijuana Exam <DO Laisha Denton Last Filed: 04/10/19 18:01> Initial Vital Signs Initial Vital Signs: Vital Signs Temperature 97.8 F 04/09/19 21:53 Pulse Rate 64 04/09/19 21:53 Respiratory Rate 16 04/09/19 21:53 Blood Pressure 106/58 L 04/09/19 21:53 Pulse Oximetry 99 04/09/19 21:53 Const General: comfortable and No ill appearing Orientation: obtunded Limitations: altered mental status HENMT Head: normal to inspection and normocephalic Eyes Pupils: PERRL Resp Effort & Inspection: normal respiratory effort Auscultation: clear to auscultation bilaterally Cardio Rate: regular rate Rhythm: regular rhythm GI Palpation: soft Skin Lesions: no lesions Rashes: no rashes Neuro General: obtunded Extrem General: capillary refill normal and No edema Psych Appearance: well kempt <Katiana Hopkins DO - Last Filed: 04/10/19 13:36> Initial Vital Signs Initial Vital Signs: Vital Signs Temperature 97.8 F 04/09/19 21:53 Pulse Rate 64 04/09/19 21:53 Respiratory Rate 16 04/09/19 21:53 Blood Pressure 106/58 L 04/09/19 21:53 Pulse Oximetry 99 04/09/19 21:53 Scores <David Geronimo DO - Last Filed: 04/10/19 18:01> GCS [place] coma scale eye opening: None [place] coma scale verbal response: None Izzy coma scale motor response: Localising [place] coma scale total score: 7 Course <David Geronimo DO - Last Filed: 04/10/19 18:01> Orders Ordered: Discontinued Medications Acetaminophen (Tylenol) 975 mg PO NOW ONE Stop: 04/10/19 09:58 Last Admin: 04/10/19 10:11 Dose: 975 mg Documented by: NINI Sodium Chloride (Normal Saline 0.9%) 1,000 mls @ 125 mls/hr IV CONT HOLGER Last Infusion: 04/10/19 06:25 Dose: 0 mls/hr Documented by: Infusion: 04/10/19 01:04 Dose: 125 mls/hr Documented by: Admin: 04/09/19 22:00 Dose: 125 mls/hr Documented by: UCHEARRINGGISELLE Vital Signs Vital signs: Vital Signs - 8 hr 04/10/19 10:17 Temperature 98.8 F Pulse Rate 96 H Respiratory Rate 16 Blood Pressure [Right Arm] 126/75 Pulse Oximetry 98 Mental Status Exam Patient Appearance: Disheveled Level of Consciousness: Obtunded Ability to Follow Directions: Poor Thought Process:: Other (Intoxicated) Physical Status Respirations: Unlabored Cardiac: Regular Rhythm Circulation: Moves all extremities Assessment of Situation Behavior necessitating restraint: ETOH/Substance Abuse Restraint Risks: Seclusion unlocked Restraint risks explained to patient: No Restraint risks explained to family: No <Katiana Hopkins DO - Last Filed: 04/10/19 13:36> Orders Ordered: Discontinued Medications Acetaminophen (Tylenol) 975 mg PO NOW ONE Stop: 04/10/19 09:58 Last Admin: 04/10/19 10:11 Dose: 975 mg Documented by: NINI Sodium Chloride (Normal Saline 0.9%) 1,000 mls @ 125 mls/hr IV CONT HOLGER Last Infusion: 04/10/19 06:25 Dose: 0 mls/hr Documented by: Infusion: 04/10/19 01:04 Dose: 125 mls/hr Documented by: Admin: 04/09/19 22:00 Dose: 125 mls/hr Documented by: UCHEARRINGTO Vital Signs Vital signs: Vital Signs - 8 hr 04/10/19 10:17 Temperature 98.8 F Pulse Rate 96 H Respiratory Rate 16 Blood Pressure [Right Arm] 126/75 Pulse Oximetry 98 MDM - Alcohol <David Geronimo DO - Last Filed: 04/10/19 18:01> Medical Records Attestation: I reviewed the patient's medical records. Lab Data Attestation: I reviewed the patient's lab results. Result diagrams: 04/09/19 22:00 04/09/19 22:00 Labs: Lab Results 04/09/19 04/09/19 04/09/19 Range/Units 22:00 22:00 22:00 WBC 6.5 (4.5-11.0) X10^3/uL RBC 4.33 L (4.5-5.9) X10^6/uL Hgb 13.8 (13.5-17.5) g/dL Hct 41.2 (41-53) % MCV 95.2 (80-100) fL MCH 31.8 (26-34) PG MCHC 33.5 (30-36) % RDW 14.7 (11.6-14.8) % Plt Count 178 (150-400) X10^3/uL Neut % (Auto) 48.5 L (50-75) % Lymph % (Auto) 43.6 H (25-40) % [place] % (Auto) 6.1 (3-14) % Eos % (Auto) 1.0 L (2-4) % Baso % (Auto) 0.8 (0-2) % Neut # (Auto) 3200 (9230-8116) /uL Lymph # (Auto) 2800 (6501-5285) /uL [place] # (Auto) 400 (0-900) /uL Eos # (Auto) 100 (0-450) /uL Baso # (Auto) 100 (0-100) /uL VBG pH (7.33-7.43) VBG pCO2 (45-50) mmHg VBG pO2 (35-45) mmHg VBG HCO3 (23-28) mmol/L VBG Total CO2 (24-29) mmol/L VBG O2 Saturation (70-75) % VBG Base Excess (0-4) mmol/L Sodium 147 H (137-145) mmol/L Potassium 3.9 (3.4-5.1) mmol/L Chloride 109 H (98-107) mmol/L Carbon Dioxide 26 (22-32) mmol/L BUN 14 (9-20) mg/dL Creatinine 0.80 (0.66-1.25) mg/dL Estimated GFR > 60.0 (>60) mL/min BUN/Creatinine Ratio 17.5 (6-22) Glucose 84 (70-100) mg/dL Lactate 2.4 H (0.7-2.1) mmol/L Calcium 8.8 (8.4-10.2) mg/dL Phosphorus (2.5-4.5) mg/dL Magnesium (1.6-2.3) mg/dL Total Bilirubin 0.4 (0.2-1.3) mg/dL AST 37 (17-59) IU/L ALT 39 (<50) IU/L Alkaline Phosphatase 54 (38-126) U/L Ammonia (9-30) umol/L Total Protein 7.4 (6.3-8.2) g/dL Albumin 4.3 (3.5-5.0) g/dL Globulin 3.1 (1.7-4.1) g/dL Albumin/Globulin Ratio 1.4 (1.0-2.8) Lipase 128 (23-300) U/L TSH (0.47-4.68) uIU/mL Salicylates < 1.0 (<20) mg/dL U Morph 300 ng/mL cutoff (Negative) Ur Oxycodone Screen (Negative) Urine Methadone Screen (Negative) Acetaminophen < 10 L (10-30) ug/mL Ur Barbiturates Screen (Negative) U Tricyclic Antidepress (Negative) Ur Phencyclidine Scrn (Negative) Ur Amphetamines Screen (Negative) U Methamphetamines Scrn (Negative) Ur MDMA Scrn (Ecstasy) (Negative) U Benzodiazepines Scrn (Negative) Urine Cocaine Screen (Negative) U Marijuana (THC) Screen (Negative) Ethyl Alcohol 377 H ( - 10) mg/dL Ketones (<0.27) mmol/L 04/09/19 04/09/19 04/09/19 Range/Units 22:00 22:00 22:00 WBC (4.5-11.0) X10^3/uL RBC (4.5-5.9) X10^6/uL Hgb (13.5-17.5) g/dL Hct (41-53) % MCV (80-100) fL MCH (26-34) PG MCHC (30-36) % RDW (11.6-14.8) % Plt Count (150-400) X10^3/uL Neut % (Auto) (50-75) % Lymph % (Auto) (25-40) % [place] % (Auto) (3-14) % Eos % (Auto) (2-4) % Baso % (Auto) (0-2) % Neut # (Auto) (9705-8560) /uL Lymph # (Auto) (2195-6102) /uL [place] # (Auto) (0-900) /uL Eos # (Auto) (0-450) /uL Baso # (Auto) (0-100) /uL VBG pH (7.33-7.43) VBG pCO2 (45-50) mmHg VBG pO2 (35-45) mmHg VBG HCO3 (23-28) mmol/L VBG Total CO2 (24-29) mmol/L VBG O2 Saturation (70-75) % VBG Base Excess (0-4) mmol/L Sodium (137-145) mmol/L Potassium (3.4-5.1) mmol/L Chloride (98-107) mmol/L Carbon Dioxide (22-32) mmol/L BUN (9-20) mg/dL Creatinine (0.66-1.25) mg/dL Estimated GFR (>60) mL/min BUN/Creatinine Ratio (6-22) Glucose (70-100) mg/dL Lactate (0.7-2.1) mmol/L Calcium (8.4-10.2) mg/dL Phosphorus 4.2 (2.5-4.5) mg/dL Magnesium 1.7 (1.6-2.3) mg/dL Total Bilirubin (0.2-1.3) mg/dL AST (17-59) IU/L ALT (<50) IU/L Alkaline Phosphatase (38-126) U/L Ammonia (9-30) umol/L Total Protein (6.3-8.2) g/dL Albumin (3.5-5.0) g/dL Globulin (1.7-4.1) g/dL Albumin/Globulin Ratio (1.0-2.8) Lipase (23-300) U/L TSH 0.57 (0.47-4.68) uIU/mL Salicylates (<20) mg/dL U Morph 300 ng/mL cutoff Negative (Negative) Ur Oxycodone Screen Negative (Negative) Urine Methadone Screen Negative (Negative) Acetaminophen (10-30) ug/mL Ur Barbiturates Screen Negative (Negative) U Tricyclic Antidepress Negative (Negative) Ur Phencyclidine Scrn Negative (Negative) Ur Amphetamines Screen Negative (Negative) U Methamphetamines Scrn Negative (Negative) Ur MDMA Scrn (Ecstasy) Negative (Negative) U Benzodiazepines Scrn Negative (Negative) Urine Cocaine Screen Negative (Negative) U Marijuana (THC) Screen Positive H (Negative) Ethyl Alcohol ( - 10) mg/dL Ketones 0.12 (<0.27) mmol/L 04/09/19 04/09/19 04/10/19 Range/Units 22:10 23:05 00:05 WBC (4.5-11.0) X10^3/uL RBC (4.5-5.9) X10^6/uL Hgb (13.5-17.5) g/dL Hct (41-53) % MCV (80-100) fL MCH (26-34) PG MCHC (30-36) % RDW (11.6-14.8) % Plt Count (150-400) X10^3/uL Neut % (Auto) (50-75) % Lymph % (Auto) (25-40) % [place] % (Auto) (3-14) % Eos % (Auto) (2-4) % Baso % (Auto) (0-2) % Neut # (Auto) (5337-4180) /uL Lymph # (Auto) (0303-1050) /uL [place] # (Auto) (0-900) /uL Eos # (Auto) (0-450) /uL Baso # (Auto) (0-100) /uL VBG pH 7.32 L (7.33-7.43) VBG pCO2 57.8 H (45-50) mmHg VBG pO2 22 L (35-45) mmHg VBG HCO3 30 H (23-28) mmol/L VBG Total CO2 32 H (24-29) mmol/L VBG O2 Saturation 31 L (70-75) % VBG Base Excess 4.0 (0-4) mmol/L Sodium (137-145) mmol/L Potassium (3.4-5.1) mmol/L Chloride (98-107) mmol/L Carbon Dioxide (22-32) mmol/L BUN (9-20) mg/dL Creatinine (0.66-1.25) mg/dL Estimated GFR (>60) mL/min BUN/Creatinine Ratio (6-22) Glucose (70-100) mg/dL Lactate 2.7 H (0.7-2.1) mmol/L Calcium (8.4-10.2) mg/dL Phosphorus (2.5-4.5) mg/dL Magnesium (1.6-2.3) mg/dL Total Bilirubin (0.2-1.3) mg/dL AST (17-59) IU/L ALT (<50) IU/L Alkaline Phosphatase (38-126) U/L Ammonia < 9.0 L (9-30) umol/L Total Protein (6.3-8.2) g/dL Albumin (3.5-5.0) g/dL Globulin (1.7-4.1) g/dL Albumin/Globulin Ratio (1.0-2.8) Lipase (23-300) U/L TSH (0.47-4.68) uIU/mL Salicylates (<20) mg/dL U Morph 300 ng/mL cutoff (Negative) Ur Oxycodone Screen (Negative) Urine Methadone Screen (Negative) Acetaminophen (10-30) ug/mL Ur Barbiturates Screen (Negative) U Tricyclic Antidepress (Negative) Ur Phencyclidine Scrn (Negative) Ur Amphetamines Screen (Negative) U Methamphetamines Scrn (Negative) Ur MDMA Scrn (Ecstasy) (Negative) U Benzodiazepines Scrn (Negative) Urine Cocaine Screen (Negative) U Marijuana (THC) Screen (Negative) Ethyl Alcohol ( - 10) mg/dL Ketones (<0.27) mmol/L ECG Data Attestation: I personally reviewed and interpreted this ECG as follows: Prior ECG tracings: not available for review Interpretation: Sinus bradycardia Normal axis Normal QRS Normal QTC No ST T wave changes MDM Narrative Medical decision making narrative: Patient has a care plan set forth by this emergency department/facility. Patient arrive not intubated which is the goal for this individual. Given his multiple prior issues with intoxication the care plan for this patient is that he is medically cleared. Is involuntarily restrained until patient can be seen by DCR and evaluated for involuntary admission secondary to [place] law. Restraint orders were placed on the patient. He was not combative however given the care plan that has already been put into place the patient will not be allowed to leave. Patient's anion gap is 12. His ethanol level is elevated. There is no other signs of toxic alcohol ingestion other than ethanol. UDS is positive for THC. Patient is maintaining his airway. Every effort will be made to avoiding intubating this patient given his prior history. Continue to monitor in the emergency department until he is able to be evaluated. Social work consult placed. Has remained calm throughout the night. Upon re-evaluation patient was easily arousable. Did state that he was in the hospital in [facility]. Feel that he is now able to be evaluated by DCR. He is medically cleared. Care turned over today provider change of shift to follow up on disposition <Katiana Hopkins, - Last Filed: 04/10/19 13:36> Lab Data Labs: Lab Results 04/09/19 04/09/19 04/09/19 Range/Units 22:00 22:00 22:00 WBC 6.5 (4.5-11.0) X10^3/uL RBC 4.33 L (4.5-5.9) X10^6/uL Hgb 13.8 (13.5-17.5) g/dL Hct 41.2 (41-53) % MCV 95.2 (80-100) fL MCH 31.8 (26-34) PG MCHC 33.5 (30-36) % RDW 14.7 (11.6-14.8) % Plt Count 178 (150-400) X10^3/uL Neut % (Auto) 48.5 L (50-75) % Lymph % (Auto) 43.6 H (25-40) % [place] % (Auto) 6.1 (3-14) % Eos % (Auto) 1.0 L (2-4) % Baso % (Auto) 0.8 (0-2) % Neut # (Auto) 3200 (3923-1766) /uL Lymph # (Auto) 2800 (8964-3708) /uL [place] # (Auto) 400 (0-900) /uL Eos # (Auto) 100 (0-450) /uL Baso # (Auto) 100 (0-100) /uL VBG pH (7.33-7.43) VBG pCO2 (45-50) mmHg VBG pO2 (35-45) mmHg VBG HCO3 (23-28) mmol/L VBG Total CO2 (24-29) mmol/L VBG O2 Saturation (70-75) % VBG Base Excess (0-4) mmol/L Sodium 147 H (137-145) mmol/L Potassium 3.9 (3.4-5.1) mmol/L Chloride 109 H (98-107) mmol/L Carbon Dioxide 26 (22-32) mmol/L BUN 14 (9-20) mg/dL Creatinine 0.80 (0.66-1.25) mg/dL Estimated GFR > 60.0 (>60) mL/min BUN/Creatinine Ratio 17.5 (6-22) Glucose 84 (70-100) mg/dL Lactate 2.4 H (0.7-2.1) mmol/L Calcium 8.8 (8.4-10.2) mg/dL Phosphorus (2.5-4.5) mg/dL Magnesium (1.6-2.3) mg/dL Total Bilirubin 0.4 (0.2-1.3) mg/dL AST 37 (17-59) IU/L ALT 39 (<50) IU/L Alkaline Phosphatase 54 (38-126) U/L Ammonia (9-30) umol/L Total Protein 7.4 (6.3-8.2) g/dL Albumin 4.3 (3.5-5.0) g/dL Globulin 3.1 (1.7-4.1) g/dL Albumin/Globulin Ratio 1.4 (1.0-2.8) Lipase 128 (23-300) U/L TSH (0.47-4.68) uIU/mL Salicylates < 1.0 (<20) mg/dL U Morph 300 ng/mL cutoff (Negative) Ur Oxycodone Screen (Negative) Urine Methadone Screen (Negative) Acetaminophen < 10 L (10-30) ug/mL Ur Barbiturates Screen (Negative) U Tricyclic Antidepress (Negative) Ur Phencyclidine Scrn (Negative) Ur Amphetamines Screen (Negative) U Methamphetamines Scrn (Negative) Ur MDMA Scrn (Ecstasy) (Negative) U Benzodiazepines Scrn (Negative) Urine Cocaine Screen (Negative) U Marijuana (THC) Screen (Negative) Ethyl Alcohol 377 H ( - 10) mg/dL Ketones (<0.27) mmol/L 04/09/19 04/09/19 04/09/19 Range/Units 22:00 22:00 22:00 WBC (4.5-11.0) X10^3/uL RBC (4.5-5.9) X10^6/uL Hgb (13.5-17.5) g/dL Hct (41-53) % MCV (80-100) fL MCH (26-34) PG MCHC (30-36) % RDW (11.6-14.8) % Plt Count (150-400) X10^3/uL Neut % (Auto) (50-75) % Lymph % (Auto) (25-40) % [place] % (Auto) (3-14) % Eos % (Auto) (2-4) % Baso % (Auto) (0-2) % Neut # (Auto) (0264-9728) /uL Lymph # (Auto) (7112-0118) /uL [place] # (Auto) (0-900) /uL Eos # (Auto) (0-450) /uL Baso # (Auto) (0-100) /uL VBG pH (7.33-7.43) VBG pCO2 (45-50) mmHg VBG pO2 (35-45) mmHg VBG HCO3 (23-28) mmol/L VBG Total CO2 (24-29) mmol/L VBG O2 Saturation (70-75) % VBG Base Excess (0-4) mmol/L Sodium (137-145) mmol/L Potassium (3.4-5.1) mmol/L Chloride (98-107) mmol/L Carbon Dioxide (22-32) mmol/L BUN (9-20) mg/dL Creatinine (0.66-1.25) mg/dL Estimated GFR (>60) mL/min BUN/Creatinine Ratio (6-22) Glucose (70-100) mg/dL Lactate (0.7-2.1) mmol/L Calcium (8.4-10.2) mg/dL Phosphorus 4.2 (2.5-4.5) mg/dL Magnesium 1.7 (1.6-2.3) mg/dL Total Bilirubin (0.2-1.3) mg/dL AST (17-59) IU/L ALT (<50) IU/L Alkaline Phosphatase (38-126) U/L Ammonia (9-30) umol/L Total Protein (6.3-8.2) g/dL Albumin (3.5-5.0) g/dL Globulin (1.7-4.1) g/dL Albumin/Globulin Ratio (1.0-2.8) Lipase (23-300) U/L TSH 0.57 (0.47-4.68) uIU/mL Salicylates (<20) mg/dL U Morph 300 ng/mL cutoff Negative (Negative) Ur Oxycodone Screen Negative (Negative) Urine Methadone Screen Negative (Negative) Acetaminophen (10-30) ug/mL Ur Barbiturates Screen Negative (Negative) U Tricyclic Antidepress Negative (Negative) Ur Phencyclidine Scrn Negative (Negative) Ur Amphetamines Screen Negative (Negative) U Methamphetamines Scrn Negative (Negative) Ur MDMA Scrn (Ecstasy) Negative (Negative) U Benzodiazepines Scrn Negative (Negative) Urine Cocaine Screen Negative (Negative) U Marijuana (THC) Screen Positive H (Negative) Ethyl Alcohol ( - 10) mg/dL Ketones 0.12 (<0.27) mmol/L 04/09/19 04/09/19 04/10/19 Range/Units 22:10 23:05 00:05 WBC (4.5-11.0) X10^3/uL RBC (4.5-5.9) X10^6/uL Hgb (13.5-17.5) g/dL Hct (41-53) % MCV (80-100) fL MCH (26-34) PG MCHC (30-36) % RDW (11.6-14.8) % Plt Count (150-400) X10^3/uL Neut % (Auto) (50-75) % Lymph % (Auto) (25-40) % [place] % (Auto) (3-14) % Eos % (Auto) (2-4) % Baso % (Auto) (0-2) % Neut # (Auto) (1880-7166) /uL Lymph # (Auto) (1737-2662) /uL [place] # (Auto) (0-900) /uL Eos # (Auto) (0-450) /uL Baso # (Auto) (0-100) /uL VBG pH 7.32 L (7.33-7.43) VBG pCO2 57.8 H (45-50) mmHg VBG pO2 22 L (35-45) mmHg VBG HCO3 30 H (23-28) mmol/L VBG Total CO2 32 H (24-29) mmol/L VBG O2 Saturation 31 L (70-75) % VBG Base Excess 4.0 (0-4) mmol/L Sodium (137-145) mmol/L Potassium (3.4-5.1) mmol/L Chloride (98-107) mmol/L Carbon Dioxide (22-32) mmol/L BUN (9-20) mg/dL Creatinine (0.66-1.25) mg/dL Estimated GFR (>60) mL/min BUN/Creatinine Ratio (6-22) Glucose (70-100) mg/dL Lactate 2.7 H (0.7-2.1) mmol/L Calcium (8.4-10.2) mg/dL Phosphorus (2.5-4.5) mg/dL Magnesium (1.6-2.3) mg/dL Total Bilirubin (0.2-1.3) mg/dL AST (17-59) IU/L ALT (<50) IU/L Alkaline Phosphatase (38-126) U/L Ammonia < 9.0 L (9-30) umol/L Total Protein (6.3-8.2) g/dL Albumin (3.5-5.0) g/dL Globulin (1.7-4.1) g/dL Albumin/Globulin Ratio (1.0-2.8) Lipase (23-300) U/L TSH (0.47-4.68) uIU/mL Salicylates (<20) mg/dL U Morph 300 ng/mL cutoff (Negative) Ur Oxycodone Screen (Negative) Urine Methadone Screen (Negative) Acetaminophen (10-30) ug/mL Ur Barbiturates Screen (Negative) U Tricyclic Antidepress (Negative) Ur Phencyclidine Scrn (Negative) Ur Amphetamines Screen (Negative) U Methamphetamines Scrn (Negative) Ur MDMA Scrn (Ecstasy) (Negative) U Benzodiazepines Scrn (Negative) Urine Cocaine Screen (Negative) U Marijuana (THC) Screen (Negative) Ethyl Alcohol ( - 10) mg/dL Ketones (<0.27) mmol/L MDM Narrative Medical decision making narrative: Patient signed out to me by Dr. Geronimo. Patient remains calm and cooperative in the emergency department. DCR here to evaluate. There is a bed at [facility], the patient is willing and able to go. Transfer has been arranged. Discharge Plan Departure Patient Disposition: [facility]fer [facility] Clinical Impression: Alcohol intoxication Discharge Date/Time: 04/10/19 10:45
--- NOTE | 2019-04-09 22:46 | PC.NURSE ---
pt remains unresponsive, no distress noted
--- NOTE | 2019-04-09 22:47 | PC.NURSE ---
pt remains unresponsive, no distress noted
--- NOTE | 2019-04-09 22:47 | PC.NURSE ---
pt remains unresponsive, no distress noted
--- NOTE | 2019-04-09 22:48 | PC.NURSE ---
pt remains unresponsive, no distress noted
--- NOTE | 2019-04-09 23:01 | PC.NURSE ---
pt remains unresponsive, no distress noted, pt turned head to side, moaned briefly
--- NOTE | 2019-04-09 23:14 | PC.NURSE ---
pt remains unresponsive, coughed and cleared sputum on own
--- NOTE | 2019-04-09 23:28 | PC.NURSE ---
pt unresponsive, repositioned self to left side
[2019-04-09 23:39] LABS: HCO3 VBG 30 mmol/L (23-28); Oxygen Saturation VBG 31 % (70-75); PCO2 VBG 57.8 mmHg (45-50); PO2 VBG 22 mmHg (35-45); Total CO2 VBG 32 mmol/L (24-29); pH VBG 7.32 (7.33-7.43)
--- NOTE | 2019-04-09 23:49 | PC.NURSE ---
pt has hiccups, repositioned self to back resting
[2019-04-09] MEDS: ONDANSETRON 4 MG/2 ML INJ (23:50)
[2019-04-10] VITALS (11 sets, daily range): BP systolic 101–126; BP diastolic 55–75; PULSE 67–96; RESP 14–21; TEMP 37.1; O2SAT 95–100
[2019-04-10 00:07] LABS: Reflexed Lactate in 2 Hours Y
--- NOTE | 2019-04-10 00:09 | PC.NURSE ---
pt repositions self, no response to verbal stimulation at this time, no distress evident
[2019-04-10 00:25] LABS: Lactate 2HR (Lactic Acid Rflx) 2.7 mmol/L (0.7-2.1)
--- NOTE | 2019-04-10 00:25 | PC.NURSE ---
removed coban wrap applied by EMS to PIV in right hand secondary to decreased CR in fingers, replaced with wide band tape with immediate return to CR<2sec
[2019-04-10 00:35] LABS: Thyroid Stimulating Hormone 0.57 uIU/mL (0.47-4.68)
--- NOTE | 2019-04-10 00:42 | PC.NURSE ---
pt repositions self, does not respond to voice, localizes pain, in no acute distress
--- NOTE | 2019-04-10 01:01 | PC.NURSE ---
pt quiet, did not respond to d/c of PIV in left AC (tape pulling on arm hair), repositions self, appears to be in no distress
--- NOTE | 2019-04-10 01:16 | PC.NURSE ---
pt one to one restrained, unresponsive
--- NOTE | 2019-04-10 01:50 | PC.NURSE ---
pt tossing and turning, able to reposition himself. Lights are turned down and patient is under constant observation by this INSPECTOR OUTSIDE PRODUCTION
--- NOTE | 2019-04-10 06:13 | PC.NURSE ---
Pt awake, making needs known. Asking to have catheter removed.
--- NOTE | 2019-04-10 06:45 | PC.NURSE ---
Pt awake trying to get dressed, said he was going to leave. Instructed that he was unable to leave until pt met with dcr. bank guard on stand by. Dr Geronimo into room to inform patient, he is not able to leave at this time. Pt continued to get dressed but agreed to stay in room at this time. Pt removed own IV and hospital ID bracelet. Has come out of room and was able to redirected into room.
--- NOTE | 2019-04-10 07:14 | PC.NURSE ---
pt in room 13 with the door open and under constant observation. Pt provided with blankets, snack, and juice. Pt is laying on gurney with eyes shut
--- NOTE | 2019-04-10 08:07 | PC.NURSE ---
GAS METER MECHANIC Note: pt calm at this time and lying in bed.
--- NOTE | 2019-04-10 08:07 | PC.NURSE ---
1:1 sitter at bedside with every 15 min checks.
--- NOTE | 2019-04-10 08:10 | PC.NURSE ---
LOCK STITCH CHANNELER Note: Pt requesting phone call with . DCR rep notified and actively working on.
--- NOTE | 2019-04-10 08:34 | PC.NURSE ---
ASSISTANT SUPERINTENDENT Note: Patient calm and assisted to phone to call .
--- NOTE | 2019-04-10 08:35 | PC.NURSE ---
TELESALES REPRESENTATIVE Note: Pt still on phone call with . Appears slightly more agitated. Pacing and tapping feet during call.
--- NOTE | 2019-04-10 08:53 | PC.NURSE ---
FOAM RUBBER CURER Note: Pt still on phone with .
--- NOTE | 2019-04-10 08:55 | PC.NURSE ---
OBJECTIVE C DEVELOPER Note: Patient finished phone call and assisted back to this room. Requesting for update from [facility] rep Zeenat. Rep notified.
--- NOTE | 2019-04-10 08:58 | PC.NURSE ---
SALES REPRESENTATIVE HEALTH INSURANCE Note: Pt becoming agitated because of wait to speak with [facility] rep. Walked out of room and approached her at desk. This SALES REPRESENTATIVE HEALTH INSURANCE and nurse able to redirect him back to room.
--- NOTE | 2019-04-10 09:11 | PC.NURSE ---
UNDERWEAR TRIMMER Note: Pt met with [facility]. Was upset to receive information regarding facility placement. Pt calm and sitting on bed. Given water.
--- NOTE | 2019-04-10 09:43 | PC.NURSE ---
DIRECTOR OF ESTATE Note: Pt calm. Requested toothbrush and toothpaste and new shirt. All provided.
--- NOTE | 2019-04-10 09:50 | PC.NURSE ---
BRACER Note: Assisted to patient to phone to call . Unable to get through. Pt remains calm. Given coffee. Requesting Tylenol for ALBA, pain 11/26. Nurse notified.
--- NOTE | 2019-04-10 10:04 | PC.NURSE ---
MILL STENCILER Note: Pt calm. requesting to call again.
[2019-04-10] MEDS: ACETAMINOPHEN 325 MG TABLET 975 MG PO (10:11)
--- NOTE | 2019-04-10 10:16 | PC.NURSE ---
PASTRY COOK HELPER Note: Pt calm. Given vishal.
[2019-04-13 14:41] LABS: Osmolality, Serum 389 mosm/kg (260-310)
== END 2019-04-10 10:45 ==
PROVIDERS: Emergency Medicine; Emergency Provider Emergency Medicine
DX: F10.129 Alcohol abuse with intoxication, unspecified (principal); F10.10 Alcohol abuse, uncomplicated; R00.1 Bradycardia, unspecified
CPT/HCPCS: 36415; 51701; 80053; 80305; 80320; 80329; 82009; 82140; 82805; 83605; 83690; 83735; 83930; 84100; 84443; 85025; 93005; 96361; 96374; 99285; 99291; 99292; G0480; J2405

== ENCOUNTER 2019-09-27 16:36 | Emergency (ER) | payer OTHER, MEDICAID, SELFPAY ==
[2018-09-23 22:26] VITALS: BMI 21.8
[2018-09-24 09:45] VITALS: PULSE 66; RESP 12; O2SAT 97
[2019-09-27 16:37] VITALS: BP 123/88; PULSE 89; RESP 16; TEMP 36.4; O2SAT 97; BMI 21.2
--- NOTE | 2019-09-27 17:21 | DI.RAD.S_ITS ---
PROCEDURE: XR CHEST 1V INDICATIONS: altered mental status TECHNIQUE: One view of the chest was acquired. COMPARISON: Merged With [facility], CR, XR CHEST 1V, 09/23/2018, 19:56. FINDINGS: Surgical changes and devices: None. Lungs and pleura: Lungs are clear. No pleural effusions or pneumothorax. Mediastinum: Mediastinal contours appear normal. Heart size is normal. Bones and chest wall: No suspicious bony lesions. Overlying soft tissues appear unremarkable. IMPRESSION: No acute pulmonary process. Dictated by: Libby Velazco M.D. on 09/27/2019 at 18:18 Approved by: Libby Velazco M.D. on 09/27/2019 at 18:19
--- NOTE | 2019-09-27 17:23 | PC.NURSE ---
pt has a long history of non compliance, getting out of bed without assistance, fallsd due to his alcoholism. staff aware.
[2019-09-27 17:33] LABS: Alanine Aminotransferase 88 IU/L (<50); Albumin 4.6 g/dL (3.5-5.0); Albumin Globulin Ratio 1.4 (1.0-2.8); Alkaline Phosphatase 49 U/L (38-126); Aspartate Aminotransferase 73 IU/L (17-59); BUN Creatinine Ratio 8.8 (6-22); Bilirubin Total 0.5 mg/dL (0.2-1.3); Blood Urea Nitrogen 6 mg/dL (9-20); Carbon Dioxide 25 mmol/L (22-32); Chloride 109 mmol/L (98-107); Estimated Glomerular Filt Rate > 60.0 mL/min (>60); Globulin 3.3 g/dL (1.7-4.1); Glucose 95 mg/dL (70-100); Potassium 4.6 mmol/L (3.4-5.1); Sodium 146 mmol/L (137-145); Total Protein 7.9 g/dL (6.3-8.2)
[2019-09-27 17:36] LABS: Add Manual Diff / Slide Review NO; Basophils Absolute Auto 0 /uL (0-100); Basophils Percent Auto 0.5 % (0-2); Eosinophils Absolute Auto 100 /uL (0-450); Hemoglobin 14.7 g/dL (13.5-17.5); Lymphocytes Absolute Auto 3200 /uL (1100-4500); Lymphocytes Percent Auto 58.9 % (25-40); Mean Corpuscular HGB Conc 34.3 % (30-36); Mean Corpuscular Hemoglobin 33.4 PG (26-34); Mean Corpuscular Volume 97.4 fL (80-100); Monocytes Absolute Auto 400 /uL (0-900); Neutrophils Absolute Auto 1800 /uL (1500-7000); Neutrophils Percent Auto 32.6 % (50-75); Platelet Count 196 X10^3/uL (150-400); Red Blood Cell Count 4.41 X10^6/uL (4.5-5.9); Red Cell Distribution Width 14.3 % (11.6-14.8); White Blood Cell Count 5.4 X10^3/uL (4.5-11.0)
[2019-09-27 17:39] LABS: HEMOLYSIS 68 (0-50)
[2019-09-27 17:43] LABS: Ethanol (ETOH) 405 mg/dL
[2019-09-27] MEDS: SODIUM CHLORIDE 0.9% 1,000 ML 1000 ML IV (18:09)
--- NOTE | 2019-09-27 20:00 | ED_ITS ---
HPI - Alcohol <VEL Adam - Last Filed: 09/27/19 21:44> General Chief Complaint: Toxicology Problem Stated Complaint: ETOH Time Seen by Provider: 09/27/19 17:25 Source: EMS Mode of arrival: EMS History of Present Illness HPI narrative: 29yo male who is well-known to the department, presents emergency department via EMS for alcohol intoxication. EMS was called as patient was lying on the ground by a bench in the grass. Patient told medics that he drank half a gallon of whiskey. Patient arrives asleep but awakes to voice, alert and oriented x3. Denies drinking today but appears clearly intoxicated. Patient denies any pain, no vomiting, denies head trauma, or fevers. Related Data Home Medications Medication Instructions Recorded Confirmed Unobtainable 03/19/18 12/02/18 Allergies Allergy/AdvReac Type Severity Reaction Status Date / Time shrimp [SHRIMP] Allergy Severe THROAT Verified 09/27/19 16:36 SWELLING/HIVES diazepam [From VALIUM] Allergy Intermediate LEG Verified 09/27/19 16:36 SWELLING haloperidol [From HALDOL] Allergy Unknown DYSTONIA Verified 09/27/19 16:36 naproxen [NAPROXEN] AdvReac Mild NAUSEA/GI Verified 09/27/19 16:36 DISTRESS Review of Systems <VEL Adam - Last Filed: 09/27/19 21:44> Review of Systems Narrative: REVIEW OF SYSTEMS: GENERAL: Denies fever. HENT: Denies hitting head, see HPI. CARDIOVASCULAR: No pain. RESPIRATORY: No cough. GASTROINTESTINAL: No pain. No vomiting. MUSCULOSKELETAL: No pain. Patient History <VEL Adam - Last Filed: 09/27/19 21:44> Medical History Alcoholism (Acute) Depression (Acute) Eating disorder (Acute) Epilepsy (Acute) Low back pain (Acute) Family History Grandfather Type 2 diabetes mellitus without complication, unspecified custodial insulin use status Grandmother Type 2 diabetes mellitus without complication, unspecified custodial insulin use status Mother Uncomplicated asthma, unspecified asthma severity Sister Uncomplicated asthma, unspecified asthma severity Unknown No problems noted. Social History household members: spouse, family and children Smoking Status: Unknown if ever smoked alcohol intake: current Smoking Status: Unknown if ever smoked alcohol intake frequency: 3 or more drinks per day Alcohol type: other Substance Use Type: marijuana Exam <VEL Adam - Last Filed: 09/27/19 21:44> Initial Vital Signs Initial Vital Signs: Vital Signs Temperature 97.6 F 09/27/19 16:37 Pulse Rate 89 09/27/19 16:37 Respiratory Rate 16 09/27/19 16:37 Blood Pressure 123/88 09/27/19 16:37 Pulse Oximetry 97 09/27/19 16:37 PHYSICAL EXAMINATION: GENERAL: Poorly groomed, patient is sleepy, wakes to voice, rambling speech. Alert to person, place, and time. HENT: Normocephalic, atraumatic. EYES: PERRLA. CHEST: Normal to inspection and without deformities. CARDIOVASCULAR: S1 and S2 sounds normal. Regular rate and rhythm, no murmurs, clicks, or bruits. No pedal edema. RESPIRATORY: Normal respiratory rate, trachea midline, airway patent. No stridor, nasal flaring or accessory muscle use. Lungs are clear in all sheikh without wheeze, rhonchi, or crackles. GASTROINTESTINAL: Bowel sounds normoactive. Abdomen is soft and non-tender. No organomegaly. MUSCULOSKELETAL: Normal gait and coordination. Equal tone and mass bilaterally. EXTREMITIES: CMS intact. Moves all extremities. SKIN: Warm, dry, soft, appropriate color for ethnicity. No lesions, rashes, or wounds. NEURO: Alert and Oriented X 3. Good coordination. Follow simple commands. PSYCH: Appears intoxicated, sleeping, awakes to voice. Follows simple commands. <David Geronimo DO - Last Filed: 09/27/19 23:18> Initial Vital Signs Initial Vital Signs: Vital Signs Temperature 97.6 F 09/27/19 16:37 Pulse Rate 89 09/27/19 16:37 Respiratory Rate 16 09/27/19 16:37 Blood Pressure 123/88 09/27/19 16:37 Pulse Oximetry 97 09/27/19 16:37 Course <VEL Adam - Last Filed: 09/27/19 21:44> Course Course Narrative: 2000: Patient up walking around the room with steady gait, redirected by nursing. 2035: Patient dressing and refused to stay in room at this time. Pushed past staff, ran out ED door, Police called by nursing Orders Ordered: ED Orders 09/27/19 16:56 Complete Blood Count AUTO DIFF Stat Comprehensive Metabolic Panel Stat ETOH [Ethanol (ETOH)] Stat 09/27/19 17:21 XR chest 1V Stat 09/27/19 20:07 Urine Drug Screen, Rapid Stat Discontinued Medications Sodium Chloride (Normal Saline 0.9%) 1,000 mls @ 1,000 mls/hr IV BOLUS ONE Stop: 09/27/19 19:05 Last Infusion: 09/27/19 19:17 Dose: 0 mls/hr Documented by: Admin: 09/27/19 18:09 Dose: 1,000 mls/hr Documented by: [email or web address] Consultations Consultation #1: Patient staffed with Dr. Geronimo, discussed attempts to initiate Rashad's Law. Vital Signs Vital signs: Vital Signs - 8 hr 09/27/19 16:37 09/27/19 20:09 Temperature 97.6 F Pulse Rate 89 65 Respiratory Rate 16 14 Blood Pressure 123/88 Blood Pressure [Left Arm] 123/88 Pulse Oximetry 97 99 <David Geronimo DO - Last Filed: 09/27/19 23:18> Orders Ordered: ED Orders 09/27/19 16:56 Complete Blood Count AUTO DIFF Stat Comprehensive Metabolic Panel Stat ETOH [Ethanol (ETOH)] Stat 09/27/19 17:21 XR chest 1V Stat 09/27/19 20:07 Urine Drug Screen, Rapid Stat Discontinued Medications Sodium Chloride (Normal Saline 0.9%) 1,000 mls @ 1,000 mls/hr IV BOLUS ONE Stop: 09/27/19 19:05 Last Infusion: 09/27/19 19:17 Dose: 0 mls/hr Documented by: Admin: 09/27/19 18:09 Dose: 1,000 mls/hr Documented by: SCANAPO Vital Signs Vital signs: Vital Signs - 8 hr 09/27/19 16:37 09/27/19 20:09 Temperature 97.6 F Pulse Rate 89 65 Respiratory Rate 16 14 Blood Pressure 123/88 Blood Pressure [Left Arm] 123/88 Pulse Oximetry 97 99 MDM - Alcohol <Tomeka Hedlin, [employer] DECORATOR - Last Filed: 09/27/19 21:44> Medical Records Attestation: I reviewed the patient's medical records. Lab Data Attestation: I reviewed the patient's lab results. Result diagrams: 09/27/19 16:56 09/27/19 16:56 Labs: Lab Results 09/27/19 09/27/19 09/27/19 Range/Units 16:56 16:56 16:56 WBC 5.4 (4.5-11.0) X10^3/uL RBC 4.41 L (4.5-5.9) X10^6/uL Hgb 14.7 (13.5-17.5) g/dL Hct 43.0 (41-53) % MCV 97.4 (80-100) fL MCH 33.4 (26-34) PG MCHC 34.3 (30-36) % RDW 14.3 (11.6-14.8) % Plt Count 196 (150-400) X10^3/uL Neut % (Auto) 32.6 L (50-75) % Lymph % (Auto) 58.9 H (25-40) % [place] % (Auto) 7.0 (3-14) % Eos % (Auto) 1.0 L (2-4) % Baso % (Auto) 0.5 (0-2) % Neut # (Auto) 1800 (1667-1152) /uL Lymph # (Auto) 3200 (4716-9200) /uL [place] # (Auto) 400 (0-900) /uL Eos # (Auto) 100 (0-450) /uL Baso # (Auto) 0 (0-100) /uL Sodium 146 H (137-145) mmol/L Potassium 4.6 (3.4-5.1) mmol/L Chloride 109 H (98-107) mmol/L Carbon Dioxide 25 (22-32) mmol/L BUN 6 L (9-20) mg/dL Creatinine 0.68 (0.66-1.25) mg/dL Estimated GFR > 60.0 (>60) mL/min BUN/Creatinine Ratio 8.8 (6-22) Glucose 95 (70-100) mg/dL Calcium 9.0 (8.4-10.2) mg/dL Total Bilirubin 0.5 (0.2-1.3) mg/dL AST 73 H (17-59) IU/L ALT 88 H (<50) IU/L Alkaline Phosphatase 49 (38-126) U/L Total Protein 7.9 (6.3-8.2) g/dL Albumin 4.6 (3.5-5.0) g/dL Globulin 3.3 (1.7-4.1) g/dL Albumin/Globulin Ratio 1.4 (1.0-2.8) U Opiates 300ng/mL cut (Negative) Ur Oxycodone Screen (Negative) Urine Methadone Screen (Negative) Ur Barbiturates Screen (Negative) U Tricyclic Antidepress (Negative) Ur Phencyclidine Scrn (Negative) Ur Amphetamines Screen (Negative) U Methamphetamines Scrn (Negative) Ur MDMA Scrn (Ecstasy) (Negative) U Benzodiazepines Scrn (Negative) Urine Cocaine Screen (Negative) U Marijuana (THC) Screen (Negative) Ethyl Alcohol 405 H* ( - 10) mg/dL 09/27/19 Range/Units 20:07 WBC (4.5-11.0) X10^3/uL RBC (4.5-5.9) X10^6/uL Hgb (13.5-17.5) g/dL Hct (41-53) % MCV (80-100) fL MCH (26-34) PG MCHC (30-36) % RDW (11.6-14.8) % Plt Count (150-400) X10^3/uL Neut % (Auto) (50-75) % Lymph % (Auto) (25-40) % Carl[place] % (Auto) (3-14) % Eos % (Auto) (2-4) % Baso % (Auto) (0-2) % Neut # (Auto) (8372-1945) /uL Lymph # (Auto) (2990-6935) /uL [place] # (Auto) (0-900) /uL Eos # (Auto) (0-450) /uL Baso # (Auto) (0-100) /uL Sodium (137-145) mmol/L Potassium (3.4-5.1) mmol/L Chloride (98-107) mmol/L Carbon Dioxide (22-32) mmol/L BUN (9-20) mg/dL Creatinine (0.66-1.25) mg/dL Estimated GFR (>60) mL/min BUN/Creatinine Ratio (6-22) Glucose (70-100) mg/dL Calcium (8.4-10.2) mg/dL Total Bilirubin (0.2-1.3) mg/dL AST (17-59) IU/L ALT (<50) IU/L Alkaline Phosphatase (38-126) U/L Total Protein (6.3-8.2) g/dL Albumin (3.5-5.0) g/dL Globulin (1.7-4.1) g/dL Albumin/Globulin Ratio (1.0-2.8) U Opiates 300ng/mL cut Negative (Negative) Ur Oxycodone Screen Negative (Negative) Urine Methadone Screen Negative (Negative) Ur Barbiturates Screen Negative (Negative) U Tricyclic Antidepress Negative (Negative) Ur Phencyclidine Scrn Negative (Negative) Ur Amphetamines Screen Negative (Negative) U Methamphetamines Scrn Negative (Negative) Ur MDMA Scrn (Ecstasy) Negative (Negative) U Benzodiazepines Scrn Negative (Negative) Urine Cocaine Screen Negative (Negative) U Marijuana (THC) Screen Positive H (Negative) Ethyl Alcohol ( - 10) mg/dL Urine Dip Bedside Urine Glucose Negative Bedside Urine Bilirubin - Negative Bedside Urine Ketone - Negative Urine Specific [place] 1.010 Bedside Urine Occult Blood - Negative Bedside Urine pH 7.0 Bedside Urine Protein - Negative Bedside Urine Urobilinogen - Negative Bedside Urine Nitrite - Negative Bedside Urine Leukocytes - Negative Esterase Imaging Data Chest x-ray: Radiologist's Impressoin: [address] [address] XRay Report Signed Patient: Abhinav Herr WMR#: [id number] : 1990Acct:[id number] Age/Sex: 29 / MDate of Service: 09/27/19 Loc: ED Accession Number: [id number] Procedure: XR chest 1V Ordering Provider: Casper Whiteside MD PROCEDURE: XR CHEST 1V INDICATIONS: altered mental status TECHNIQUE: One view of the chest was acquired. COMPARISON: [facility], , XR CHEST 1V, 09/23/2018, 19:56. FINDINGS: Surgical changes and devices: None. Lungs and pleura: Lungs are clear. No pleural effusions or pneumothorax. Mediastinum: Mediastinal contours appear normal. Heart size is normal. Bones and chest wall: No suspicious bony lesions. Overlying soft tissues appear unremarkable. IMPRESSION: No acute pulmonary process. Dictated by: Libby Velazco M.D. on 09/27/2019 at 18:18 Approved by: Libby Velazco M.D. on 09/27/2019 at 18:19 MDM Narrative Medical decision making narrative: 29-year-old male who is a chronic alcoholic and well-known to the emergency department was brought in by EMS as he was found lying in the grass. Patient is clearly clinically intoxicated, over the course of his stay in the emergency department was up walking around and dressing himself. Patient was seen to have a steady gait. Patient eloped. The police were called to retrieve patient, please unable to find patient. <David Geronimo, DO - Last Filed: 09/27/19 23:18> Lab Data Labs: Lab Results 09/27/19 09/27/19 09/27/19 Range/Units 16:56 16:56 16:56 WBC 5.4 (4.5-11.0) X10^3/uL RBC 4.41 L (4.5-5.9) X10^6/uL Hgb 14.7 (13.5-17.5) g/dL Hct 43.0 (41-53) % MCV 97.4 (80-100) fL MCH 33.4 (26-34) PG MCHC 34.3 (30-36) % RDW 14.3 (11.6-14.8) % Plt Count 196 (150-400) X10^3/uL Neut % (Auto) 32.6 L (50-75) % Lymph % (Auto) 58.9 H (25-40) % [place] % (Auto) 7.0 (3-14) % Eos % (Auto) 1.0 L (2-4) % Baso % (Auto) 0.5 (0-2) % Neut # (Auto) 1800 (8341-3810) /uL Lymph # (Auto) 3200 (3772-4077) /uL [place] # (Auto) 400 (0-900) /uL Eos # (Auto) 100 (0-450) /uL Baso # (Auto) 0 (0-100) /uL Sodium 146 H (137-145) mmol/L Potassium 4.6 (3.4-5.1) mmol/L Chloride 109 H (98-107) mmol/L Carbon Dioxide 25 (22-32) mmol/L BUN 6 L (9-20) mg/dL Creatinine 0.68 (0.66-1.25) mg/dL Estimated GFR > 60.0 (>60) mL/min BUN/Creatinine Ratio 8.8 (6-22) Glucose 95 (70-100) mg/dL Calcium 9.0 (8.4-10.2) mg/dL Total Bilirubin 0.5 (0.2-1.3) mg/dL AST 73 H (17-59) IU/L ALT 88 H (<50) IU/L Alkaline Phosphatase 49 (38-126) U/L Total Protein 7.9 (6.3-8.2) g/dL Albumin 4.6 (3.5-5.0) g/dL Globulin 3.3 (1.7-4.1) g/dL Albumin/Globulin Ratio 1.4 (1.0-2.8) U Opiates 300ng/mL cut (Negative) Ur Oxycodone Screen (Negative) Urine Methadone Screen (Negative) Ur Barbiturates Screen (Negative) U Tricyclic Antidepress (Negative) Ur Phencyclidine Scrn (Negative) Ur Amphetamines Screen (Negative) U Methamphetamines Scrn (Negative) Ur MDMA Scrn (Ecstasy) (Negative) U Benzodiazepines Scrn (Negative) Urine Cocaine Screen (Negative) U Marijuana (THC) Screen (Negative) Ethyl Alcohol 405 H* ( - 10) mg/dL 09/27/19 Range/Units 20:07 WBC (4.5-11.0) X10^3/uL RBC (4.5-5.9) X10^6/uL Hgb (13.5-17.5) g/dL Hct (41-53) % MCV (80-100) fL MCH (26-34) PG MCHC (30-36) % RDW (11.6-14.8) % Plt Count (150-400) X10^3/uL Neut % (Auto) (50-75) % Lymph % (Auto) (25-40) % [place] % (Auto) (3-14) % Eos % (Auto) (2-4) % Baso % (Auto) (0-2) % Neut # (Auto) (7464-5968) /uL Lymph # (Auto) (1036-2094) /uL [place] # (Auto) (0-900) /uL Eos # (Auto) (0-450) /uL Baso # (Auto) (0-100) /uL Sodium (137-145) mmol/L Potassium (3.4-5.1) mmol/L Chloride (98-107) mmol/L Carbon Dioxide (22-32) mmol/L BUN (9-20) mg/dL Creatinine (0.66-1.25) mg/dL Estimated GFR (>60) mL/min BUN/Creatinine Ratio (6-22) Glucose (70-100) mg/dL Calcium (8.4-10.2) mg/dL Total Bilirubin (0.2-1.3) mg/dL AST (17-59) IU/L ALT (<50) IU/L Alkaline Phosphatase (38-126) U/L Total Protein (6.3-8.2) g/dL Albumin (3.5-5.0) g/dL Globulin (1.7-4.1) g/dL Albumin/Globulin Ratio (1.0-2.8) U Opiates 300ng/mL cut Negative (Negative) Ur Oxycodone Screen Negative (Negative) Urine Methadone Screen Negative (Negative) Ur Barbiturates Screen Negative (Negative) U Tricyclic Antidepress Negative (Negative) Ur Phencyclidine Scrn Negative (Negative) Ur Amphetamines Screen Negative (Negative) U Methamphetamines Scrn Negative (Negative) Ur MDMA Scrn (Ecstasy) Negative (Negative) U Benzodiazepines Scrn Negative (Negative) Urine Cocaine Screen Negative (Negative) U Marijuana (THC) Screen Positive H (Negative) Ethyl Alcohol ( - 10) mg/dL Urine Dip Bedside Urine Glucose Negative Bedside Urine Bilirubin - Negative Bedside Urine Ketone - Negative Urine Specific [place] 1.010 Bedside Urine Occult Blood - Negative Bedside Urine pH 7.0 Bedside Urine Protein - Negative Bedside Urine Urobilinogen - Negative Bedside Urine Nitrite - Negative Bedside Urine Leukocytes - Negative Esterase Discharge Plan Departure Patient Disposition: Left Against Medical Advice Clinical Impression: Patient left care setting after refusal of treatment Discharge Date/Time: 09/27/19 20:37 Prescriptions: No Action Unobtainable RF: 0 Stand Alone Forms: Against Medical Advice <David Geronimo, DO - Last Filed: 09/27/19 23:18> Cosign ED Attending Cosignature Attestation: Dr Geronimo Co-Sign Statement: I was available for consultation during this patient's emergency department visit. This chart is signed by myself for administrative purposes only. I did not have direct contact with this patient during this visit. They were seen independently by the APC.
[2019-09-27 20:09] VITALS: BP 123/88; PULSE 65; RESP 14; O2SAT 99
[2019-09-27 20:18] LABS: UR Morphine/Opiate cutoff 300 Negative (Negative); Ur Creatinine Normal (Normal); Ur Specific Gravity Normal (Normal); Urine Amphetamines Negative (Negative); Urine Barbiturates Negative (Negative); Urine Benzodiazepines Negative (Negative); Urine Cocaine Negative (Negative); Urine MDMA Negative (Negative); Urine Methadone Negative (Negative); Urine Methamphetamines Negative (Negative); Urine Oxycodone Negative (Negative); Urine Phencyclidine Negative (Negative); Urine Tetrahydrocannabinol Positive (Negative); Urine Tricyclic Antidepressant Negative (Negative); Urine pH Normal (Normal)
--- NOTE | 2019-09-27 20:37 | PC.NURSE ---
Pt attempting to leave, security called and in ED. De-escalated by staff. Pt then walked out to the DI hallway and out the doors and out the ED entrance doors. This RN on the phone with [employer] dispatch. Advised pt is clinically intoxicated. Dispatch advised [employer] with return pt to ED if found.
== END 2019-09-27 20:37 | disposition left against medical advice (07) ==
LOC: ED 19:00
PROVIDERS: Emergency Medicine; Emergency Provider Nurse Practitioner
DX: F10.129 Alcohol abuse with intoxication, unspecified (principal); Y90.8 Blood alcohol level of 240 mg/100 ml or more; R41.82 Altered mental status, unspecified
CPT/HCPCS: 36415; 71045; 80053; 80305; 80320; 81003; 85025; 93005; 96360; 99284

== ENCOUNTER 2019-09-28 04:41 | Emergency (ER) | payer OTHER, MEDICAID, SELFPAY ==
[2018-09-23 22:26] VITALS: BMI 21.8
[2018-09-24 09:45] VITALS: PULSE 66; RESP 12; O2SAT 97
--- NOTE | 2019-09-28 04:47 | DI.RAD.S_ITS ---
PROCEDURE: XR HAND RT MIN 3V INDICATIONS: swelling possible fall TECHNIQUE: 3 views of the hand(s) acquired. COMPARISON: None. FINDINGS: Bones: No fractures or dislocations. Carpal bones are normally aligned. No suspicious bony lesions. Soft tissues: No suspicious soft tissue calcifications. IMPRESSION: No visualized acute fracture or dislocation. However, if clinical concern and/or pain persist, short interval imaging followup in 7-10 days is recommended, as occult injury cannot be definitively excluded. Dictated by: Libby Velazco M.D. on 09/28/2019 at 8:33 Approved by: Libby Velazco M.D. on 09/28/2019 at 8:39
[2019-09-28 04:48] VITALS: BP 120/71; PULSE 58; RESP 12; TEMP 36.4; O2SAT 98
--- NOTE | 2019-09-28 05:10 | ED_ITS ---
HPI - General Adult General Chief complaint: Toxicology Problem Stated complaint: ETOH Time Seen by Provider: 09/28/19 04:42 Source: patient and police Mode of arrival: Ambulatory Limitations: other (Intoxication) History of Present Illness HPI narrative: Patient is a 29-year-old male. Well known to myself in this emergency department for having issues with alcohol. Patient was here yesterday afternoon after being brought to the emergency department for intoxication. Had a blood alcohol level greater than 400. Rest of his workup to include blood work and urine drug screen was negative except for his urine drug screen was positive for THC. Patient has had Rashad's law applied to him in the past. The plan during the visit yesterday was to implement this once again however the patient eloped. The police were called however they were unable to locate him until this morning when the police were called by the patient's family when the patient was trying to enter the house. He was brought in by police. Is calm. Patient states that after he left the emergency department he did drink more alcohol. Related Data Home Medications Medication Instructions Recorded Confirmed Unobtainable 03/19/18 12/02/18 Allergies Allergy/AdvReac Type Severity Reaction Status Date / Time shrimp [SHRIMP] Allergy Severe THROAT Verified 09/27/19 16:36 SWELLING/HIVES diazepam [From VALIUM] Allergy Intermediate LEG Verified 09/27/19 16:36 SWELLING haloperidol [From HALDOL] Allergy Unknown DYSTONIA Verified 09/27/19 16:36 naproxen [NAPROXEN] AdvReac Mild NAUSEA/GI Verified 09/27/19 16:36 DISTRESS Review of Systems Constitutional Constitutional: Denies headache(s) ENT Ears, Nose, Mouth, and Throat: Denies headache(s) Cardiovascular Cardiovascular: Denies chest pain and Denies dyspnea Respiratory Respiratory: Denies dyspnea Gastrointestinal Gastrointestinal: Denies vomiting Musculoskeletal Comments: Right hand swelling Integumentary/Breasts Skin/Breast: Denies rash Neurologic Neurologic: Denies behavioral changes and Denies headache(s) Psychiatric Psychiatric: Denies behavioral changes Hematologic/Lymphatic Hematologic/Lymphatic: Denies easy bleeding and Denies easy bruising Patient History Medical History Alcoholism (Acute) Depression (Acute) Eating disorder (Acute) Epilepsy (Acute) Low back pain (Acute) Social History household members: spouse, family and children Smoking Status: Unknown if ever smoked alcohol intake: current Smoking Status: Unknown if ever smoked alcohol intake frequency: 3 or more drinks per day Alcohol type: other Substance Use Type: marijuana Exam Initial Vital Signs Initial Vital Signs: Vital Signs Temperature 97.6 F 09/28/19 04:48 Pulse Rate 58 L 09/28/19 04:48 Respiratory Rate 12 09/28/19 04:48 Blood Pressure 120/71 09/28/19 04:48 Pulse Oximetry 98 09/28/19 04:48 Const General: cooperative Limitations: other limitations (Intoxicated) HENMT Head: normal to inspection and normocephalic Cardio Pulses: radial pulses present on the right Skin Lesions: no lesions Rashes: no rashes Neuro General: alert and awake Other: Intoxicated, slurring his words, ambulated in the emergency department under his own power however was not hand goes Extrem Other: Patient does have mild swelling circumferentially to his right hand. He states that it does not hurt him. He can flex and extend at the wrist and make a fist without any pain. Psych Appearance: disheveled Course Orders Ordered: ED Orders 09/28/19 04:47 XR hand RT min 3V Stat 09/28/19 05:00 Ethanol (ETOH) Stat Vital Signs Vital signs: Vital Signs - 8 hr 09/28/19 04:48 Temperature 97.6 F Pulse Rate 58 L Respiratory Rate 12 Blood Pressure 120/71 Pulse Oximetry 98 Medical Decision Making Lab Data Labs: Lab Results 09/28/19 Range/Units 05:00 Ethyl Alcohol 365 H ( - 10) mg/dL Imaging Data Extremity x-ray #1: Attestation: I personally reviewed and interpreted this imaging study as follows: My Impression: No fractures, no dislocations MDM Narrative Medical decision making narrative: Patient is cooperative however obviously intoxicated. No signs of trauma except for the swelling of the right hand which shows no signs of fractures. Alcohol levels elevated. I did contact the [employer] who then contacted DCR. I do feel given the patient's history that in attempt to involuntary admit for alcohol is warranted in this case. Patient has been calm, DCR consulted for [facility]. Information has been faxed to them. Care turned over to day provider to follow up and disposition. Discharge Plan Departure Patient Disposition: [facility] Clinical Impression: Alcohol intoxication Qualifiers: Complication of substance-induced condition: with unspecified complication Qualified Code(s): F10.929 - Alcohol use, unspecified with intoxication, unspecified
[2019-09-28 05:28] LABS: Ethanol (ETOH) 365 mg/dL
--- NOTE | 2019-09-28 07:15 | PC.NURSE ---
Patient sleeping. Moving independently. Even resp, non labored.
[2019-09-28 08:24] VITALS: RESP 12
--- NOTE | 2019-09-28 08:25 | PC.NURSE ---
Pt is currently sleeping. Noted 12 deep respirations with normal chest rising.
--- NOTE | 2019-09-28 08:56 | PC.NURSE ---
DCR called and does not have grounds to detain patient. Provider aware. INPATIENT NURSING AIDE consult placed
[2019-09-28 10:34] VITALS: BP 135/78; PULSE 110; RESP 16; TEMP 36.5; O2SAT 97
--- NOTE | 2019-09-28 10:56 | PC.NURSE ---
Patient was asked to wait here until he could talk to the DCR at least and he agreed to as long as he got his belongings back. The nurses were busy and I wasn't able to ask them right away if he could get his belongings. He started to get agitated by the wait and started asking everyone that walked by if they could get his belongings. He said that the last time he was at the hospital they never gave his stuff back and his stuff was never found. I explained again that the nurse would get them to him as soon as she was available to. He kept repeating that he just wanted his stuff back if he was going to stay. After the nurse gave him his stuff he got dressed and paced the room for a few minutes and then walked out of the E.R. saying he was gonna go home.
--- NOTE | 2019-09-28 10:59 | PC.NURSE ---
Patient pacing in room, requesting belongings stating he is ready to leave. Patient was given his belongings asked to wait to finish evaluation. Agreeable at time of discussion. Provider face to face with patient. After patient received belongings patient quickly departed ER. Provider aware of patients exit
--- NOTE | 2019-09-28 13:31 | PC.NURSE ---
Vee FELIZ updated that patient left without completing evaluation and paperwork
== END 2019-09-28 11:00 | disposition home or self-care (01) ==
PROVIDERS: Emergency Medicine; Emergency Provider Emergency Medicine
DX: F10.929 Alcohol use, unspecified with intoxication, unspecified (principal); Y90.8 Blood alcohol level of 240 mg/100 ml or more; Z02.89 Encounter for other administrative examinations; S60.512A Abrasion of left hand, initial encounter; M79.89 Other specified soft tissue disorders
CPT/HCPCS: 36415; 73130; 80320; 99281; 99283; 99284

== ENCOUNTER 2019-09-28 19:33 | Emergency (ER) | payer OTHER, MEDICAID, SELFPAY ==
[2018-09-23 22:26] VITALS: BMI 21.8
[2018-09-24 09:45] VITALS: PULSE 66; RESP 12; O2SAT 97
[2019-09-28 19:36] VITALS: BP 147/98; PULSE 98; RESP 16; TEMP 36.4; O2SAT 98
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
[2019-09-28 19:42] VITALS: BP 136/85; PULSE 93; RESP 20; TEMP 37.1; O2SAT 99; BMI 25.0
== END 2019-09-28 19:58 | disposition home or self-care (01) ==
PROVIDERS: Emergency Provider Emergency Medicine
DX: Z02.89 Encounter for other administrative examinations (principal); S60.512A Abrasion of left hand, initial encounter; F10.929 Alcohol use, unspecified with intoxication, unspecified
CPT/HCPCS: 99281

== ENCOUNTER 2019-09-29 16:14 | Emergency (ER) | payer OTHER, MEDICAID, SELFPAY ==
[2018-09-23 22:26] VITALS: BMI 21.8
[2018-09-24 09:45] VITALS: PULSE 66; RESP 12; O2SAT 97
[2019-09-29 16:18] VITALS: BP 150/94; PULSE 123; RESP 22; TEMP 37.4; O2SAT 99
--- NOTE | 2019-09-29 16:51 | ED_ITS ---
HPI - Alcohol <Casper Whiteside MD - Last Filed: 09/29/19 18:17> General Chief Complaint: Toxicology Problem Stated Complaint: wants to go to detox Time Seen by Provider: 09/29/19 16:26 Source: patient Mode of arrival: Ambulatory History of Present Illness HPI narrative: CC: Detox HPI: The patient is a 29-year-old male who has a history of chronic alcoholism. He has been seen in the emergency department on a daily basis for the last 3 days prior to admission. He states that today his last drink was at 10:30 a.m. this morning. He states that if he is drinking wine he drinks at least 2 bottles of wine per day and if he is drinking hard liquor it is a half of a 5th to a 5th per day. He comes in today and is the most cooperative and lucid that I have seen him requesting detoxification. He denies any other complaints at this time. He denies having any homicidal ideation suicidal ideation or being depressed. He states that he has had alcohol withdrawal seizures x1 in the past and a history of DTs. He has been in rehab programs in [facility] and [place] in the past. He currently denies any fever chills but has sweats at night. He denies any headache numbness tingling paresthesias anesthesia is paresis or paralysis. He has had no change in vision loss of vision or diplopia. He denies any chest pain cough shortness of breath palpitations. He has had intermittent nausea and vomiting but denies any coffee-ground emesis hematemesis. He has had diarrhea without melena or hematochezia. He denies being exposed to COVID-19. He has had no urinary symptoms. Related Data Previous Rx's Medication Instructions Recorded lorazepam [Ativan] See Rx Instructions .ROUTE 09/30/19 .COMPLEX #18 tab Allergies Allergy/AdvReac Type Severity Reaction Status Date / Time shrimp [SHRIMP] Allergy Severe THROAT Verified 09/28/19 19:42 SWELLING/HIVES diazepam [From VALIUM] Allergy Intermediate LEG Verified 09/28/19 19:42 SWELLING haloperidol [From HALDOL] Allergy Unknown DYSTONIA Verified 09/28/19 19:42 naproxen [NAPROXEN] AdvReac Mild NAUSEA/GI Verified 09/28/19 19:42 DISTRESS Review of Systems <Casper Whiteside MD - Last Filed: 09/29/19 18:17> Review of Systems Narrative: His review of systems were all negative except for those mentioned in the history of present illness. 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 Social History household members: spouse, family and children Smoking Status: Current every day smoker alcohol intake: current Smoking Status: Current every day smoker alcohol intake frequency: 3 or more drinks per day Alcohol type: other Substance Use Type: does not use Exam <Casper Whiteside MD - Last Filed: 09/29/19 18:17> Narrative Exam Narrative: PHYSICAL EXAM: CONSTITUTIONAL: Awake, Alert, Oriented, appears anxious but does not appear agitated at this time. HEAD: AT/NC EENT: PERRL, FROM of eyes, no discharge, mild horizontal nystagmus. The patient has mildly injected conjunctiva. NOSE:No epistaxis or nasal drainage MOUTH:Oral mucosa is moist and pink, posterior pharynx is without erythema or exudate. NECK: Supple, no obvious JVD, Trachea is midline without stridor, no palpable LN. SPINE: Palpationof the cervical, Thoracic, Lumbar or Sacral spine reveals no gross deformity or tenderness. No CVA tenderness. THORAX: No deformity, retractions, chest wall tenderness. LUNGS: Clear, symmetrical breath sounds without respiratory distress. HEART: Normal heart tones, regular rhythm and rate without murmur. ABDOMEN: Soft, non-tender, normal bowel sounds without guarding, rebound, rigidity or palpable mass. EXTREMITIES: No edema, deformity, tenderness . NEURO: Awake, alert, oriented, conversive, cranial nerves II-XII are symmetrical , moves all 4 extremities and is ambulatory without tremor.. Initial Vital Signs Initial Vital Signs: Vital Signs Temperature 99.4 F 09/29/19 16:18 Pulse Rate 123 H 09/29/19 16:18 Respiratory Rate 22 09/29/19 16:18 Blood Pressure 150/94 H 09/29/19 16:18 Pulse Oximetry 99 09/29/19 16:18 <Cris Sarkar MD - Last Filed: 09/30/19 18:07> Initial Vital Signs Initial Vital Signs: Vital Signs Temperature 99.4 F 09/29/19 16:18 Pulse Rate 123 H 09/29/19 16:18 Respiratory Rate 22 09/29/19 16:18 Blood Pressure 150/94 H 09/29/19 16:18 Pulse Oximetry 99 09/29/19 16:18 <Valentina Gandhi DO - Last Filed: 09/30/19 10:27> Initial Vital Signs Initial Vital Signs: Vital Signs Temperature 99.4 F 09/29/19 16:18 Pulse Rate 123 H 09/29/19 16:18 Respiratory Rate 09/29/19 16:18 Blood Pressure 150/94 H 09/29/19 16:18 Pulse Oximetry 99 09/29/19 16:18 Course <Casper Whiteside MD - Last Filed: 09/29/19 18:17> Orders Ordered: Discontinued Medications Magnesium Sulfate 2 gm/ Folic Acid 1 mg/ Thiamine HCl 100 mg / Multivitamins 10 ml/ Sodium Chloride 1,015.2 mls @ 125 mls/hr IV NOW ONE Stop: 09/30/19 00:54 Last Infusion: 09/30/19 01:10 Dose: 125 mls/hr Documented by: Admin: 09/29/19 17:21 Dose: 125 mls/hr Documented by: FLACO Lorazepam (Ativan) 2 mg PO NOW ONE Stop: 09/29/19 18:44 Last Admin: 09/29/19 18:49 Dose: 2 mg Documented by: FLACO Lorazepam (Ativan) 2 mg PO NOW ONE Stop: 09/30/19 07:10 Last Admin: 09/30/19 07:19 Dose: 2 mg Documented by: JESICA Nicotine (Nicoderm) 21 mg TOP NOW ONE Stop: 09/29/19 18:15 Last Admin: 09/29/19 19:00 Dose: 21 mg Documented by: CHERIE Phenobarbital (Phenobarbital) 260 mg IV NOW ONE Stop: 09/29/19 16:34 Last Admin: 09/29/19 17:10 Dose: 260 mg Documented by: FLACO Vital Signs Vital signs: Vital Signs - 8 hr 09/30/19 10:25 Pulse Rate 66 Respiratory Rate 17 Blood Pressure [Right Arm] 134/73 Pulse Oximetry 97 <Cris Sarkar MD - Last Filed: 09/30/19 18:07> Orders Ordered: Discontinued Medications Magnesium Sulfate 2 gm/ Folic Acid 1 mg/ Thiamine HCl 100 mg / Multivitamins 10 ml/ Sodium Chloride 1,015.2 mls @ 125 mls/hr IV NOW ONE Stop: 09/30/19 00:54 Last Infusion: 09/30/19 01:10 Dose: 125 mls/hr Documented by: Admin: 09/29/19 17:21 Dose: 125 mls/hr Documented by: FLACO Lorazepam (Ativan) 2 mg PO NOW ONE Stop: 09/29/19 18:44 Last Admin: 09/29/19 18:49 Dose: 2 mg Documented by: FLACO Lorazepam (Ativan) 2 mg PO NOW ONE Stop: 09/30/19 07:10 Last Admin: 09/30/19 07:19 Dose: 2 mg Documented by: JESICA Nicotine (Nicoderm) 21 mg TOP NOW ONE Stop: 09/29/19 18:15 Last Admin: 09/29/19 19:00 Dose: 21 mg Documented by: CHERIE Phenobarbital (Phenobarbital) 260 mg IV NOW ONE Stop: 09/29/19 16:34 Last Admin: 09/29/19 17:10 Dose: 260 mg Documented by: FLACO Vital Signs Vital signs: Vital Signs - 8 hr 09/30/19 10:25 Pulse Rate 66 Respiratory Rate 17 Blood Pressure [Right Arm] 134/73 Pulse Oximetry 97 <Valentina Gandhi DO - Last Filed: 09/30/19 10:27> Orders Ordered: Discontinued Medications Magnesium Sulfate 2 gm/ Folic Acid 1 mg/ Thiamine HCl 100 mg / Multivitamins 10 ml/ Sodium Chloride 1,015.2 mls @ 125 mls/hr IV NOW ONE Stop: 09/30/19 00:54 Last Infusion: 05/13/20 01:10 Dose: 125 mls/hr Documented by: Admin: 09/29/19 17:21 Dose: 125 mls/hr Documented by: FLACO Lorazepam (Ativan) 2 mg PO NOW ONE Stop: 09/29/19 18:44 Last Admin: 09/29/19 18:49 Dose: 2 mg Documented by: FLACO Lorazepam (Ativan) 2 mg PO NOW ONE Stop: 09/30/19 07:10 Last Admin: 09/30/19 07:19 Dose: 2 mg Documented by: JESICA Nicotine (Nicoderm) 21 mg TOP NOW ONE Stop: 09/29/19 18:15 Last Admin: 09/29/19 19:00 Dose: 21 mg Documented by: CHERIE Phenobarbital (Phenobarbital) 260 mg IV NOW ONE Stop: 09/29/19 16:34 Last Admin: 09/29/19 17:10 Dose: 260 mg Documented by: FLACO Vital Signs Vital signs: Vital Signs - 8 hr 09/30/19 10:25 Pulse Rate 66 Respiratory Rate 17 Blood Pressure [Right Arm] 134/73 Pulse Oximetry 97 MDM - Alcohol <Casper Whiteside MD - Last Filed: 09/29/19 18:17> Lab Data Result diagrams: 09/29/19 17:00 09/29/19 17:00 Labs: Lab Results 09/29/19 09/29/19 09/29/19 Range/Units 17:00 17:00 17:00 WBC 9.9 (4.5-11.0) X10^3/uL RBC 4.48 L (4.5-5.9) X10^6/uL Hgb 14.7 (13.5-17.5) g/dL Hct 42.5 (41-53) % MCV 94.8 (80-100) fL MCH 32.9 (26-34) PG MCHC 34.7 (30-36) % RDW 14.3 (11.6-14.8) % Plt Count 245 (150-400) X10^3/uL Neut % (Auto) 70.2 (50-75) % Lymph % (Auto) 23.6 L (25-40) % [place] % (Auto) 5.5 (3-14) % Eos % (Auto) 0.1 L (2-4) % Baso % (Auto) 0.6 (0-2) % Neut # (Auto) 7000 (2393-2581) /uL Lymph # (Auto) 2300 (8250-1897) /uL [place] # (Auto) 500 (0-900) /uL Eos # (Auto) 0 (0-450) /uL Baso # (Auto) 100 (0-100) /uL Sodium 137 (137-145) mmol/L Potassium 4.2 (3.4-5.1) mmol/L Chloride 99 (98-107) mmol/L Carbon Dioxide 23 (22-32) mmol/L BUN 11 (9-20) mg/dL Creatinine 0.70 (0.66-1.25) mg/dL Estimated GFR > 60.0 (>60) mL/min BUN/Creatinine Ratio 15.7 (6-22) Glucose 114 H (70-100) mg/dL Calcium 10.2 (8.4-10.2) mg/dL Magnesium 1.3 L (1.6-2.3) mg/dL Total Bilirubin 1.2 (0.2-1.3) mg/dL Conjugated Bilirubin 0.0 (0.0-0.3) md/dL Unconjugated Bilirubin 1.1 (0.0-1.1) mg/dL AST 56 (17-59) IU/L ALT 67 H (<50) IU/L Alkaline Phosphatase 59 (38-126) U/L Total Protein 8.5 H (6.3-8.2) g/dL Albumin 5.1 H (3.5-5.0) g/dL Globulin 3.4 (1.7-4.1) g/dL Albumin/Globulin Ratio 1.5 (1.0-2.8) Lipase 81 (23-300) U/L TSH 1.71 (0.47-4.68) uIU/mL Salicylates 1.0 (<20) mg/dL U Opiates 300ng/mL cut (Negative) Ur Oxycodone Screen (Negative) Urine Methadone Screen (Negative) Acetaminophen < 10 L (10-30) ug/mL Ur Barbiturates Screen (Negative) U Tricyclic Antidepress (Negative) Ur Phencyclidine Scrn (Negative) Ur Amphetamines Screen (Negative) U Methamphetamines Scrn (Negative) Ur MDMA Scrn (Ecstasy) (Negative) U Benzodiazepines Scrn (Negative) Urine Cocaine Screen (Negative) U Marijuana (THC) Screen (Negative) Ethyl Alcohol 107 H ( - 10) mg/dL COVID-19 PCR 09/29/19 09/29/19 09/29/19 Range/Units 19:50 19:50 20:19 WBC (4.5-11.0) X10^3/uL RBC (4.5-5.9) X10^6/uL Hgb (13.5-17.5) g/dL Hct (41-53) % MCV (80-100) fL MCH (26-34) PG MCHC (30-36) % RDW (11.6-14.8) % Plt Count (150-400) X10^3/uL Neut % (Auto) (50-75) % Lymph % (Auto) (25-40) % [place] % (Auto) (3-14) % Eos % (Auto) (2-4) % Baso % (Auto) (0-2) % Neut # (Auto) (5844-8612) /uL Lymph # (Auto) (5308-0448) /uL [place] # (Auto) (0-900) /uL Eos # (Auto) (0-450) /uL Baso # (Auto) (0-100) /uL Sodium (137-145) mmol/L Potassium (3.4-5.1) mmol/L Chloride (98-107) mmol/L Carbon Dioxide (22-32) mmol/L BUN (9-20) mg/dL Creatinine (0.66-1.25) mg/dL Estimated GFR (>60) mL/min BUN/Creatinine Ratio (6-22) Glucose (70-100) mg/dL Calcium (8.4-10.2) mg/dL Magnesium (1.6-2.3) mg/dL Total Bilirubin (0.2-1.3) mg/dL Conjugated Bilirubin (0.0-0.3) md/dL Unconjugated Bilirubin (0.0-1.1) mg/dL AST (17-59) IU/L ALT (<50) IU/L Alkaline Phosphatase (38-126) U/L Total Protein (6.3-8.2) g/dL Albumin (3.5-5.0) g/dL Globulin (1.7-4.1) g/dL Albumin/Globulin Ratio (1.0-2.8) Lipase (23-300) U/L TSH (0.47-4.68) uIU/mL Salicylates (<20) mg/dL U Opiates 300ng/mL cut Negative (Negative) Ur Oxycodone Screen Negative (Negative) Urine Methadone Screen Negative (Negative) Acetaminophen (10-30) ug/mL Ur Barbiturates Screen Positive H (Negative) U Tricyclic Antidepress Negative (Negative) Ur Phencyclidine Scrn Negative (Negative) Ur Amphetamines Screen Negative (Negative) U Methamphetamines Scrn Negative (Negative) Ur MDMA Scrn (Ecstasy) Negative (Negative) U Benzodiazepines Scrn Negative (Negative) Urine Cocaine Screen Negative (Negative) U Marijuana (THC) Screen Positive H (Negative) Ethyl Alcohol ( - 10) mg/dL COVID-19 PCR Cancelled Negative <Cris Sarkar MD - Last Filed: 09/30/19 18:07> Medical Records Attestation: I reviewed the patient's medical records. Lab Data Attestation: I reviewed the patient's lab results. Labs: Lab Results 09/29/19 09/29/19 09/29/19 Range/Units 17:00 17:00 17:00 WBC 9.9 (4.5-11.0) X10^3/uL RBC 4.48 L (4.5-5.9) X10^6/uL Hgb 14.7 (13.5-17.5) g/dL Hct 42.5 (41-53) % MCV 94.8 (80-100) fL MCH 32.9 (26-34) PG MCHC 34.7 (30-36) % RDW 14.3 (11.6-14.8) % Plt Count 245 (150-400) X10^3/uL Neut % (Auto) 70.2 (50-75) % Lymph % (Auto) 23.6 L (25-40) % [place] % (Auto) 5.5 (3-14) % Eos % (Auto) 0.1 L (2-4) % Baso % (Auto) 0.6 (0-2) % Neut # (Auto) 7000 (1912-7747) /uL Lymph # (Auto) 2300 (9961-9332) /uL [place] # (Auto) 500 (0-900) /uL Eos # (Auto) 0 (0-450) /uL Baso # (Auto) 100 (0-100) /uL Sodium 137 (137-145) mmol/L Potassium 4.2 (3.4-5.1) mmol/L Chloride 99 (98-107) mmol/L Carbon Dioxide 23 (22-32) mmol/L BUN 11 (9-20) mg/dL Creatinine 0.70 (0.66-1.25) mg/dL Estimated GFR > 60.0 (>60) mL/min BUN/Creatinine Ratio 15.7 (6-22) Glucose 114 H (70-100) mg/dL Calcium 10.2 (8.4-10.2) mg/dL Magnesium 1.3 L (1.6-2.3) mg/dL Total Bilirubin 1.2 (0.2-1.3) mg/dL Conjugated Bilirubin 0.0 (0.0-0.3) md/dL Unconjugated Bilirubin 1.1 (0.0-1.1) mg/dL AST 56 (17-59) IU/L ALT 67 H (<50) IU/L Alkaline Phosphatase 59 (38-126) U/L Total Protein 8.5 H (6.3-8.2) g/dL Albumin 5.1 H (3.5-5.0) g/dL Globulin 3.4 (1.7-4.1) g/dL Albumin/Globulin Ratio 1.5 (1.0-2.8) Lipase 81 (23-300) U/L TSH 1.71 (0.47-4.68) uIU/mL Salicylates 1.0 (<20) mg/dL U Opiates 300ng/mL cut (Negative) Ur Oxycodone Screen (Negative) Urine Methadone Screen (Negative) Acetaminophen < 10 L (10-30) ug/mL Ur Barbiturates Screen (Negative) U Tricyclic Antidepress (Negative) Ur Phencyclidine Scrn (Negative) Ur Amphetamines Screen (Negative) U Methamphetamines Scrn (Negative) Ur MDMA Scrn (Ecstasy) (Negative) U Benzodiazepines Scrn (Negative) Urine Cocaine Screen (Negative) U Marijuana (THC) Screen (Negative) Ethyl Alcohol 107 H ( - 10) mg/dL COVID-19 PCR 09/29/19 09/29/19 09/29/19 Range/Units 19:50 19:50 20:19 WBC (4.5-11.0) X10^3/uL RBC (4.5-5.9) X10^6/uL Hgb (13.5-17.5) g/dL Hct (41-53) % MCV (80-100) fL MCH (26-34) PG MCHC (30-36) % RDW (11.6-14.8) % Plt Count (150-400) X10^3/uL Neut % (Auto) (50-75) % Lymph % (Auto) (25-40) % [place] % (Auto) (3-14) % Eos % (Auto) (2-4) % Baso % (Auto) (0-2) % Neut # (Auto) (5043-1016) /uL Lymph # (Auto) (9509-5316) /uL [place] # (Auto) (0-900) /uL Eos # (Auto) (0-450) /uL Baso # (Auto) (0-100) /uL Sodium (137-145) mmol/L Potassium (3.4-5.1) mmol/L Chloride (98-107) mmol/L Carbon Dioxide (22-32) mmol/L BUN (9-20) mg/dL Creatinine (0.66-1.25) mg/dL Estimated GFR (>60) mL/min BUN/Creatinine Ratio (6-22) Glucose (70-100) mg/dL Calcium (8.4-10.2) mg/dL Magnesium (1.6-2.3) mg/dL Total Bilirubin (0.2-1.3) mg/dL Conjugated Bilirubin (0.0-0.3) md/dL Unconjugated Bilirubin (0.0-1.1) mg/dL AST (17-59) IU/L ALT (<50) IU/L Alkaline Phosphatase (38-126) U/L Total Protein (6.3-8.2) g/dL Albumin (3.5-5.0) g/dL Globulin (1.7-4.1) g/dL Albumin/Globulin Ratio (1.0-2.8) Lipase (23-300) U/L TSH (0.47-4.68) uIU/mL Salicylates (<20) mg/dL U Opiates 300ng/mL cut Negative (Negative) Ur Oxycodone Screen Negative (Negative) Urine Methadone Screen Negative (Negative) Acetaminophen (10-30) ug/mL Ur Barbiturates Screen Positive H (Negative) U Tricyclic Antidepress Negative (Negative) Ur Phencyclidine Scrn Negative (Negative) Ur Amphetamines Screen Negative (Negative) U Methamphetamines Scrn Negative (Negative) Ur MDMA Scrn (Ecstasy) Negative (Negative) U Benzodiazepines Scrn Negative (Negative) Urine Cocaine Screen Negative (Negative) U Marijuana (THC) Screen Positive H (Negative) Ethyl Alcohol ( - 10) mg/dL COVID-19 PCR Cancelled Negative MDM Narrative Medical decision making narrative: 642 pm 29-year-old alcoholic patient accepted in handoff. He is interested in detox at this time. His last drink was at 10:00 a.m. and his alcohol level at this time is 0. Independent evaluation at this time indicates significant anxiety, no hyper reflexia, mild tremor, tachycardia and mild hypertension. Will treat with 2 mg of Ativan while we are contacting crisis respite to see if beds are available. He is medically clear at this point and I think would make a good emma admit for crisis respite. Of note he has some slight swelling to the dorsum of the right hand with a minor abrasion over the 2nd knuckle. He states that he fell down yesterday with some minor injury to the hand. There is no tenderness to the bones of the hand, he is neurovascularly intact with full nontender range of motion. He is medically cleared at this time Contacted [facility] crisis respite. Because of prior episodes and bringing alcohol to detox they need to talk with either a film processing supervisor clinician who will not be available until tomorrow. Will board overnight as he does seem to be in a perfect spot actually truly encourage him in his sobriety at this point. COVID 19 concern: Abhinav has had no fevers, cough, changes to taste or smell, GI upset or other symptoms associated with Covid. We will do a rapid test tonight in anticipation of crisis admission tomorrow. <Valentina Gandhi, - Last Filed: 09/30/19 10:27> Lab Data Attestation: I reviewed the patient's lab results. Labs: Lab Results 09/29/19 09/29/19 09/29/19 Range/Units 17:00 17:00 17:00 WBC 9.9 (4.5-11.0) X10^3/uL RBC 4.48 L (4.5-5.9) X10^6/uL Hgb 14.7 (13.5-17.5) g/dL Hct 42.5 (41-53) % MCV 94.8 (80-100) fL MCH 32.9 (26-34) PG MCHC 34.7 (30-36) % RDW 14.3 (11.6-14.8) % Plt Count 245 (150-400) X10^3/uL Neut % (Auto) 70.2 (50-75) % Lymph % (Auto) 23.6 L (25-40) % [place] % (Auto) 5.5 (3-14) % Eos % (Auto) 0.1 L (2-4) % Baso % (Auto) 0.6 (0-2) % Neut # (Auto) 7000 (2850-4811) /uL Lymph # (Auto) 2300 (6131-4284) /uL [place] # (Auto) 500 (0-900) /uL Eos # (Auto) 0 (0-450) /uL Baso # (Auto) 100 (0-100) /uL Sodium 137 (137-145) mmol/L Potassium 4.2 (3.4-5.1) mmol/L Chloride 99 (98-107) mmol/L Carbon Dioxide 23 (22-32) mmol/L BUN 11 (9-20) mg/dL Creatinine 0.70 (0.66-1.25) mg/dL Estimated GFR > 60.0 (>60) mL/min BUN/Creatinine Ratio 15.7 (6-22) Glucose 114 H (70-100) mg/dL Calcium 10.2 (8.4-10.2) mg/dL Magnesium 1.3 L (1.6-2.3) mg/dL Total Bilirubin 1.2 (0.2-1.3) mg/dL Conjugated Bilirubin 0.0 (0.0-0.3) md/dL Unconjugated Bilirubin 1.1 (0.0-1.1) mg/dL AST 56 (17-59) IU/L ALT 67 H (<50) IU/L Alkaline Phosphatase 59 (38-126) U/L Total Protein 8.5 H (6.3-8.2) g/dL Albumin 5.1 H (3.5-5.0) g/dL Globulin 3.4 (1.7-4.1) g/dL Albumin/Globulin Ratio 1.5 (1.0-2.8) Lipase 81 (23-300) U/L TSH 1.71 (0.47-4.68) uIU/mL Salicylates 1.0 (<20) mg/dL U Opiates 300ng/mL cut (Negative) Ur Oxycodone Screen (Negative) Urine Methadone Screen (Negative) Acetaminophen < 10 L (10-30) ug/mL Ur Barbiturates Screen (Negative) U Tricyclic Antidepress (Negative) Ur Phencyclidine Scrn (Negative) Ur Amphetamines Screen (Negative) U Methamphetamines Scrn (Negative) Ur MDMA Scrn (Ecstasy) (Negative) U Benzodiazepines Scrn (Negative) Urine Cocaine Screen (Negative) U Marijuana (THC) Screen (Negative) Ethyl Alcohol 107 H ( - 10) mg/dL COVID-19 PCR 09/29/19 09/29/19 09/29/19 Range/Units 19:50 19:50 20:19 WBC (4.5-11.0) X10^3/uL RBC (4.5-5.9) X10^6/uL Hgb (13.5-17.5) g/dL Hct (41-53) % MCV (80-100) fL MCH (26-34) PG MCHC (30-36) % RDW (11.6-14.8) % Plt Count (150-400) X10^3/uL Neut % (Auto) (50-75) % Lymph % (Auto) (25-40) % [place] % (Auto) (3-14) % Eos % (Auto) (2-4) % Baso % (Auto) (0-2) % Neut # (Auto) (9218-8213) /uL Lymph # (Auto) (4625-1020) /uL [place] # (Auto) (0-900) /uL Eos # (Auto) (0-450) /uL Baso # (Auto) (0-100) /uL Sodium (137-145) mmol/L Potassium (3.4-5.1) mmol/L Chloride (98-107) mmol/L Carbon Dioxide (22-32) mmol/L BUN (9-20) mg/dL Creatinine (0.66-1.25) mg/dL Estimated GFR (>60) mL/min BUN/Creatinine Ratio (6-22) Glucose (70-100) mg/dL Calcium (8.4-10.2) mg/dL Magnesium (1.6-2.3) mg/dL Total Bilirubin (0.2-1.3) mg/dL Conjugated Bilirubin (0.0-0.3) md/dL Unconjugated Bilirubin (0.0-1.1) mg/dL AST (17-59) IU/L ALT (<50) IU/L Alkaline Phosphatase (38-126) U/L Total Protein (6.3-8.2) g/dL Albumin (3.5-5.0) g/dL Globulin (1.7-4.1) g/dL Albumin/Globulin Ratio (1.0-2.8) Lipase (23-300) U/L TSH (0.47-4.68) uIU/mL Salicylates (<20) mg/dL U Opiates 300ng/mL cut Negative (Negative) Ur Oxycodone Screen Negative (Negative) Urine Methadone Screen Negative (Negative) Acetaminophen (10-30) ug/mL Ur Barbiturates Screen Positive H (Negative) U Tricyclic Antidepress Negative (Negative) Ur Phencyclidine Scrn Negative (Negative) Ur Amphetamines Screen Negative (Negative) U Methamphetamines Scrn Negative (Negative) Ur MDMA Scrn (Ecstasy) Negative (Negative) U Benzodiazepines Scrn Negative (Negative) Urine Cocaine Screen Negative (Negative) U Marijuana (THC) Screen Positive H (Negative) Ethyl Alcohol ( - 10) mg/dL COVID-19 PCR Cancelled Negative MDM Narrative Medical decision making narrative: Patient was signed out to myself by Dr. Sarkar, patient is requesting alcohol detox. He has had rapid cover testing which was negative. Vital signs have improved significantly from arrival. He slept throughout the night. He had a dose of at 5:00 p.m. on the and a dose of lorazepam at 7:00 p.m.. He has received a banana bag and a nicotine patch. And was given another dose of lorazepam p.o. here in the department this morning. Labs 1.3 very mildly elevated ALT, urine drug screen is positive for barbiturates and marijuana which is not unexpected as patient received phenobarbital and his EtOH was 107 last night > 14 hours ago. Patient was accepted to [facility], prescription for ativan taper was sent with patient and taken directly via taxi to [facility]. Patient vitals have improved while in department. Patient alert, appropriate and ambulating without difficulty and comfortable with the plan. Discharge Plan Departure Patient Disposition: Released, Other Clinical Impression: Alcohol abuse Discharge Date/Time: 09/30/19 10:27 Activity Restrictions/Additional Instructions: If you feel you need to go to [facility] Crisis/Detox Center. Call had of time ([phone]) to inquire about an available bed. If there are no beds called daily and 9 AM and 9 PM to check on bed availability. If you're feeling suicidal or having suicidal thoughts, contact the suicide hotline: . Go directly to the crisis/detox center. Take the prescribed medications for your symptoms. Medications will be dispensed by the staff there. If you leave the Center you CANNOT take the extra medication home with you. Prescriptions: New lorazepam [Ativan] 1 mg tablet See Rx Instructions .ROUTE .COMPLEX Qty: 18 RF: 0 <Cris Sarkar MD - Last Filed: 09/30/19 18:07> [facility]: I was immediately available in the department for consultation throughout this patient's visit. I agree with documentation as above. Cris Sarkar MD
[2019-09-29] MEDS: PHENobarbital 65 MG/ML VIAL 260 MG IV (17:10)
[2019-09-29 17:19] LABS: Add Manual Diff / Slide Review NO; Basophils Absolute Auto 100 /uL (0-100); Basophils Percent Auto 0.6 % (0-2); Eosinophils Absolute Auto 0 /uL (0-450); Eosinophils Percent Auto 0.1 % (2-4); Hematocrit 42.5 % (41-53); Hemoglobin 14.7 g/dL (13.5-17.5); Lymphocytes Absolute Auto 2300 /uL (1100-4500); Lymphocytes Percent Auto 23.6 % (25-40); Mean Corpuscular HGB Conc 34.7 % (30-36); Mean Corpuscular Hemoglobin 32.9 PG (26-34); Mean Corpuscular Volume 94.8 fL (80-100); Monocytes Absolute Auto 500 /uL (0-900); Monocytes Percent Auto 5.5 % (3-14); Neutrophils Absolute Auto 7000 /uL (1500-7000); Neutrophils Percent Auto 70.2 % (50-75); Platelet Count 245 X10^3/uL (150-400); Red Blood Cell Count 4.48 X10^6/uL (4.5-5.9); Red Cell Distribution Width 14.3 % (11.6-14.8); White Blood Cell Count 9.9 X10^3/uL (4.5-11.0)
[2019-09-29] MEDS: MAGNESIUM SULFATE 2 GM, FOLIC ACID 1 MG, THIAMINE 100 MG, MULTIVITAMIN 10 ML in SODIUM ... IV (17:21)
[2019-09-29 17:25] LABS: Acetaminophen < 10 ug/mL (10-30); Alanine Aminotransferase 67 IU/L (<50); Albumin 5.1 g/dL (3.5-5.0); Albumin Globulin Ratio 1.5 (1.0-2.8); Alkaline Phosphatase 59 U/L (38-126); Aspartate Aminotransferase 56 IU/L (17-59); BUN Creatinine Ratio 15.7 (6-22); Bilirubin Total 1.2 mg/dL (0.2-1.3); Bilirubin Unconjugated 1.1 mg/dL (0.0-1.1); Blood Urea Nitrogen 11 mg/dL (9-20); Calcium 10.2 mg/dL (8.4-10.2); Carbon Dioxide 23 mmol/L (22-32); Chloride 99 mmol/L (98-107); Estimated Glomerular Filt Rate > 60.0 mL/min (>60); Ethanol (ETOH) 107 mg/dL; Globulin 3.4 g/dL (1.7-4.1); Glucose 114 mg/dL (70-100); HEMOLYSIS < 15 (0-50); Lipase 81 U/L (23-300); Magnesium 1.3 mg/dL (1.6-2.3); Potassium 4.2 mmol/L (3.4-5.1); Sodium 137 mmol/L (137-145); Total Protein 8.5 g/dL (6.3-8.2)
--- NOTE | 2019-09-29 17:44 | PC.NURSE ---
pt given phone in room to call
[2019-09-29 17:54] LABS: Thyroid Stimulating Hormone 1.71 uIU/mL (0.47-4.68)
--- NOTE | 2019-09-29 18:24 | CM.SWNOTE ---
INTENSIVE CARE ANAESTHETIST note INTENSIVE CARE ANAESTHETIST meets with patient and completed brief assessment. Patient is a 29 year old male who presents to ED seeking detox and inpatient treatment. Patient states he drinks either 2 bottles of wine or a fifth of alcohol daily when he drinks. Patient states he has attended treatment and detox in past, and says that he has not had the follow through upon discharge from these facilities and has returned to drinking. Patient states he would like to attend inpatient treatment at [facility]. INTENSIVE CARE ANAESTHETIST and patient discuss starting with detox facility. INTENSIVE CARE ANAESTHETIST and patient discuss attending detox at [facility], and patient informs INTENSIVE CARE ANAESTHETIST that he might not be welcome back due to having brought alcohol there during a previous stay. Patient states he would be willing to attend detox if he were able to go back. Patient gives INTENSIVE CARE ANAESTHETIST verbal permission to contact [facility], [facility], and [facility]. Patient requests INTENSIVE CARE ANAESTHETIST call his and give update. INTENSIVE CARE ANAESTHETIST will check bed availability at [facility] and if there are open beds, INTENSIVE CARE ANAESTHETIST will transfer call to patient's room for patient to complete intake. INTENSIVE CARE ANAESTHETIST will then provide update to patient's . KANDI Jones
[2019-09-29 18:29] VITALS: BP 134/66; PULSE 102; RESP 18; O2SAT 99
--- NOTE | 2019-09-29 18:48 | CM.SWNOTE ---
Addendum entered by Michael Crow 09/29/19 19:02: HAMMER HEATER faxed clinicals to [facility]. . Original Note: HAMMER HEATER note HAMMER HEATER called [facility] and spoke to Caity. Caity informs HAMMER HEATER that [facility] does have open beds. HAMMER HEATER discusses that patient is worried that he might not be allowed back and inform Caity of patient name. Caity states that this case will likely have to be staffed with a clinician and that some stipulations may need to be put in place surrounding his return, but that she believed that she could find a way to make this work. HAMMER HEATER put Caity on hold and spoke with patient. Patient agreeable to complete assessment with Caity. HAMMER HEATER transfers call to patient room. HAMMER HEATER will follow up with patient following completion of intake with Reymundo Crow.
[2019-09-29] MEDS: LORazepam 0.5 MG TABLET 2 MG PO (18:49)
[2019-09-29] MEDS: NICOTINE 21 MG PATCH TOP (19:00)
--- NOTE | 2019-09-29 19:09 | CM.SWNOTE ---
ENVIRONMENT ARTIST note ENVIRONMENT ARTIST speaks with patient following intake. Patient informs ENVIRONMENT ARTIST that the intake went well and shares that intake staff at [facility] will review his case and the clinicals that ENVIRONMENT ARTIST sent and follow up with a decision. ENVIRONMENT ARTIST called patient's and provided update. ENVIRONMENT ARTIST will wait for call from [facility] and work with patient and medical team to create plan pending acceptance. KANDI Jones
--- NOTE | 2019-09-29 19:30 | CM.SWNOTE ---
BEHAVIORAL MEDICAL DIRECTOR note BEHAVIORAL MEDICAL DIRECTOR calls [facility] to ensure that [facility] has proper call back number for ED. Staff at [facility] informs BEHAVIORAL MEDICAL DIRECTOR that they will have a clinician call to screen patient in AM due to problems during previous stay. BEHAVIORAL MEDICAL DIRECTOR staffs this with Dr. Sarkar, and Dr. Sarkar informs BEHAVIORAL MEDICAL DIRECTOR that she is open to boarding patient overnight as he appears to be at a turning point. BEHAVIORAL MEDICAL DIRECTOR speaks with patient about this and patient is agreeable to stay overnight. BEHAVIORAL MEDICAL DIRECTOR provides update to RN and Dr. Sarkar regaurding this. BEHAVIORAL MEDICAL DIRECTOR then receives a call from [facility] who request a clear note stating that patient is not showing any symptoms of COVID. BEHAVIORAL MEDICAL DIRECTOR speaks with Dr. Sarkar regarding this. Dr. Sarkar to add this to her note and BEHAVIORAL MEDICAL DIRECTOR to fax it to [facility] before end of shift. Dr. Sarkar informs BEHAVIORAL MEDICAL DIRECTOR that she will order a rapid COVID test so that results will be ready when [facility] calls in AM. BEHAVIORAL MEDICAL DIRECTOR calls [facility] to inform them that fax with statement regarding patient and COVID will be faxed over tonight. BEHAVIORAL MEDICAL DIRECTOR informed staff at [facility] that [facility] was boarding patient overnight so he could have this interview in the morning. BEHAVIORAL MEDICAL DIRECTOR discussed initial meeting with patient with [facility] staff, and shared that his presentation to the ED tonight is in significant contrast to previous presentations, and that patient states and presents as being ready for support and treatment for his alcohol use. Staff at [facility] said they would inform supervisor coke handling of this information. BEHAVIORAL MEDICAL DIRECTOR faxed information to detox. BEHAVIORAL MEDICAL DIRECTOR will inform care management team of plan for transfer to [facility] for follow up support in AM. KANDI Jones
[2019-09-29 20:29] VITALS: BP 132/71; PULSE 95; RESP 17; O2SAT 98
[2019-09-29 20:31] LABS: Ur Creatinine Normal (Normal); Ur Specific Gravity Normal (Normal); Urine pH Normal (Normal)
[2019-09-29 20:32] LABS: UR Morphine/Opiate cutoff 300 Negative (Negative); Urine Amphetamines Negative (Negative); Urine Barbiturates Positive (Negative); Urine Benzodiazepines Negative (Negative); Urine Cocaine Negative (Negative); Urine MDMA Negative (Negative); Urine Methadone Negative (Negative); Urine Methamphetamines Negative (Negative); Urine Oxycodone Negative (Negative); Urine Phencyclidine Negative (Negative); Urine Tetrahydrocannabinol Positive (Negative); Urine Tricyclic Antidepressant Negative (Negative)
[2019-09-29 21:13] LABS: COVID19 -Nasal RAPID Negative (Negative)
[2019-09-30 00:08] VITALS: BP 124/70; PULSE 62; RESP 11; O2SAT 98
[2019-09-30 04:00] VITALS: BP 125/71; PULSE 63; RESP 15; O2SAT 99
[2019-09-30] MEDS: LORazepam 0.5 MG TABLET 2 MG PO (07:19)
[2019-09-30 08:11] VITALS: BP 130/86; PULSE 103; RESP 36; O2SAT 98
--- NOTE | 2019-09-30 08:49 | CM.SWNOTE ---
Addendum entered by KANDI Thompson 09/30/19 09:32: ADD: Per ED RN, pt was accepted at [facility] and they are setting up transport for pt to their facility today. BF Original Note: Per previous SW note from yesterday 09/29/19, pt boarded overnight in ED waiting for voluntary detox at [facility] towards seeking voluntary CD/MH treatment as this is pt's 3rd ED visit in the past week for ETOH. [facility] as they had some challenges at pt's last admit and not being engaged in treatment but they are aware that pt seems to [facility] any concerns with ED MD this morning to determine if they will accept pt. SW called [facility] this morning [phone] and discussed above and they are aware of the pt and willing to do final review and call ED MD this morning around 0845. SW called ED and updated on incoming phone call from [facility] around that time to determine if pt can be transported to their facility. Plan: SW to follow for any further needs pending pt's acceptance at [facility] this morning. KANDI Thompson
[2019-09-30 09:12] VITALS: BP 132/78; PULSE 67; RESP 16; O2SAT 98
[2019-09-30 10:25] VITALS: BP 134/73; PULSE 66; RESP 17; O2SAT 97
--- NOTE | 2019-09-30 10:27 | PC.NURSE ---
prescription for ativan taper given to pt.. pt placed in a yellow envelope
--- NOTE | 2022-03-16 07:13 | P.DS_ITS ---
History of Present Illness History of Present Illness Chief complaint: wants to go to detox Narrative: Abhinav Herr is a 32 y/o male with a history of depression, epilepsy, alcoholism, found down brought in by EMS initially as a Casper Torrese. Per ED Dr. Hopkins: Patient is a 32-year-old male who presents as a Casper Goodman the passed out by the [place].? Presumed alcohol intoxication.? No obvious sign of trauma.? He does respond to painful stimuli.? Is not talking localizes pain.? Initially accepted admit of Casper Goodman in the time between admit and transfer to the floor patient was identified as Abhinav Herr, he has had repeated admits for alcohol intoxication being found down requiring intubation.? It is reported that the patient was recently in [facility] for approximately 2 months for repair of a broken left ankle and most recently returned home within the past 48 hours, is reported to have gone out drinking and was subsequently found down by EMS.? In ED patient was only responsive to sternal rub.? Patient's vitals in ED blood pressure was soft systolics in the 80s, and required 2 L nasal cannula to support O2 saturation greater than 95%, he did not require intubation nor pressors. Upon admit to floor patient is arousable and able to coherently converse alert and orientated x3, though patient was unaware how he arrived at the hospital and believed that he brought himself in.? He does endorse that he drink at least a 5th of vodka if not more earlier today.? Admit vitals are stable but continued to be soft temp 98.1?, BP 86/42, HR 89, R 17, O2 saturation 96% on room air.? Patient resting comfortably in no distress.? Hemoglobin 12.8, hematocrit 37.1 these appear to be baseline chronic due to patient's ongoing alcohol abuse, CMP is WNL, prolactin, within normal limits.? Initial lactate 3.0, repeat 2.7, repeat 1.3, procalcitonin TSH and ammonia WNL. Admitted with an alcohol level of 366.? CTA is negative for any abnormalities, C-spine is negative, head CT is negative, chest x-ray is negative, ankle x-ray demonstrates healing fracture hardware without complication and place.? Patient admitted for alcohol intoxication unresponsive. ? Admitting has created a duplicate chart on this patient-because he presented as Casper Goodman, therefore this chart appears empty for history and previous visits, I did personal review patient's previous chart notes in the system- there is a plan to merge his charts at a later time.? Past medical history: Depression, epilepsy, alcoholism Past surgical history: left ankle reconstruction Family medical history:? Patient denies any family medical history Patient lives with his mother, is frequently homeless, unemployed Patient has a significant history of alcohol abuse, reports that he drinks a 5th of vodka daily Discharge Providers Provider Date of admission: 03/15/20222150 Discharge Date: 03/16/22 Consults: 09/29/19 16:49 Consult to C D REACTOR OPERATOR - [employer] Sales Representative Stat Comment: Requesting detox C D REACTOR OPERATOR Consult: Behavioral Health Assess [facility] Summary Hospital Course Discharge Diagnosis: Alcohol intoxication, found down, unresponsive the setting of chronic alcohol abuse/alcoholism Hospital Course: Patient left Against Medical Advice at 5:50 a.m. 03/16/2022 Abhinav Herr is a 32 y/o male with a history of depression, epilepsy, alcoholism, found down, unresponsive, initially admitted as a Casper Goodman, with an alcohol level of 366.? Due to patient's repeated history of respiratory arrest requiring intubation, and hypotensive shock patient is placed in the ICU for observation, will downgrade to a medical floor if he remains stable through the night. 1. Alcohol intoxication, found down (downtime unknown), unresponsive, in the setting of chronic alcohol abuse/alcoholism, acute on chronic, present on admission * Long history of alcoholism, repeated admissions to the ICU in acute respiratory failure and hypotensive shock.? Last admission 07/26/2021-patient usually leaves Against Medical Advice. * ETOH 366 * Patient admitted under alcohol withdrawal/CIWA protocol 2. Tobacco abuse, acute on chronic, present on admission -patient education regarding tobacco cessation -nicotine patch prescribed 3. Epilepsy, reported hx in chart, present on admission * NOt currently on medications * No antiepileptic medications prescribed * Patient placed on seizure precautions 4. Underweight likely secondary to chronic alcohol abuse, acute on chronic, present on admission -as evidence by BMI of 22.8 -dietary consult placed for nutritional education and information Exam Vital Signs (past 8 hours): Oxygen Delivery Method Room Air Narrative Exam Narrative: Unable to perform physical exam due to patient leaving Against Medical Advice Objective Labs Result Diagrams: 09/29/19 17:00 09/29/19 17:00 [facility] Medical History Alcoholism Depression Eating disorder Epilepsy Low back pain Surgical History History of ankle surgery Family History Grandfather Type 2 diabetes mellitus without complication, unspecified 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 Social History household members: family Smoking Status: Current every day smoker alcohol intake: current Discharge Plan Departure Patient Disposition: Left Against Medical Advice Clinical Impression: Alcohol abuse Activity Restrictions/Additional Instructions: If you feel you need to go to [facility] Crisis[facility]Detox Center. Call had of time ([phone]) to inquire about an available bed. If there are no beds called daily and 9 AM and 9 PM to check on bed availability. If you're feeling suicidal or having suicidal thoughts, contact the suicide hotline: . Go directly to the crisis/detox center. Take the prescribed medications for your symptoms. Medications will be dispensed by the staff there. If you leave the Center you CANNOT take the extra medication home with you.
== END 2019-09-30 10:27 | disposition home or self-care (01) ==
PROVIDERS: Emergency Medicine; Emergency Provider Emergency Medicine
DX: F10.10 Alcohol abuse, uncomplicated (principal); Z11.59 Encounter for screening for other viral diseases; F41.9 Anxiety disorder, unspecified; R79.89 Other specified abnormal findings of blood chemistry; I10 Essential (primary) hypertension; R00.0 Tachycardia, unspecified
CPT/HCPCS: 36415; 80053; 80076; 80305; 80320; 80329; 83690; 83735; 84443; 85025; 87635; 96361; 96374; 99284; G0480; J2560; J3475

== ENCOUNTER 2021-07-25 21:18 | Inpatient (IN) | payer OTHER, MEDICAID, SELFPAY ==
[2018-09-23 22:26] VITALS: BMI 21.8
[2018-09-24 09:45] VITALS: PULSE 66; RESP 12; O2SAT 97
[2021-07-25] VITALS (32 sets, daily range): BP systolic 78–140; BP diastolic 47–99; PULSE 51–93; RESP 0–20; TEMP 36.2; O2SAT 92–100
--- NOTE | 2021-07-25 21:33 | DI.CT.S_ITS ---
PROCEDURE: CT CERVICAL SPINE WO CON INDICATIONS: unresponsive, found down TECHNIQUE: Noncontrast 3 mm thick sections acquired from the skull base to the T4 level. Sagittal and coronal reformats were then constructed. For radiation dose reduction, the following was used: automated exposure control, adjustment of mA and/or kV according to patient size. COMPARISON: [facility], CT, CT CERVICAL SPINE WO CON, 09/23/2018, 20:01. [facility], CT, CT CERVICAL SPINE WO CON, 09/01/2018, 13:59. FINDINGS: Image quality: Excellent. Bones: No acute fractures or dislocations. Visualized superior ribs are intact. Soft tissues: Endotracheal and orogastric tubes are seen. A small amount of mucus or debris is seen in the posterior trachea and left mainstem bronchus. The included the lung apices are clear. Prevertebral soft tissues are normal in thickness. No paravertebral hematomas. No apical pneumothoraces. IMPRESSION: No acute cervical spine fracture or dislocation. Mild posterior dependent mucus or debris is seen in the trachea and left mainstem bronchus. Dictated by: Osmani Minaya M.D. on 07/25/2021 at 22:46 Approved by: Osmani Minaya M.D. on 07/25/2021 at 22:49
--- NOTE | 2021-07-25 21:33 | DI.RAD.S_ITS ---
PROCEDURE: XR CHEST 1V INDICATIONS: tube placement TECHNIQUE: One view of the chest was acquired. COMPARISON: [facility], CR, XR CHEST 1 VIEW, 03/29/2020, 17:11. [facility], CR, XR CHEST 1V, 09/27/2019, 18:10. FINDINGS: Surgical changes and devices: Endotracheal tube is seen with tip projecting over that T2 vertebra approximately 7 cm above the matthew. Lungs and pleura: Lungs are clear. No pleural effusions or pneumothorax. Mediastinum: Mediastinal contours appear normal. Heart size is normal. Bones and chest wall: No suspicious bony lesions. Overlying soft tissues appear unremarkable. IMPRESSION: Endotracheal tube is seen in borderline high positioning with tip approximately 7 cm above the matthew. Consider advancing the tube by 2-3 cm. Dictated by: Osmani Minaya M.D. on 07/25/2021 at 21:55 Approved by: Osmani Minaya M.D. on 07/25/2021 at 21:58
--- NOTE | 2021-07-25 21:33 | DI.CT.S_ITS ---
PROCEDURE: CT HEAD/BRAIN WO CON INDICATIONS: unresponsive, heavy etoh history TECHNIQUE: Noncontrast 4.5 mm thick angled axial sections acquired from the foramen magnum to the vertex, with coronal and sagittal reformats. For radiation dose reduction, the following was used: automated exposure control, adjustment of mA and/or kV according to patient size. COMPARISON: [facility], CT, CT HEAD WITHOUT CONTRAST, 08/02/2019, 4:09. [facility], CT, CT HEAD/BRAIN WO CON, 09/23/2018, 20:01. [facility], CT, CT HEAD/BRAIN WO CON, 09/01/2018, 13:59. FINDINGS: Image quality: Excellent. CSF spaces: Basal cisterns are patent. No extra-axial fluid collections. Ventricles are normal in size and shape. Brain: No midline shift. No intracranial masses or hemorrhage. Dey-white matter interface is normal. Skull and face: Calvarium and visualized facial bones are intact, without suspicious lesions. Endotracheal tube is partially imaged. Fluid is seen in the nasopharynx and posterior nasal cavity, likely related to intubation. Chronic right parietal calvarial thinning. Sinuses: Visualized sinuses and mastoids are clear. IMPRESSION: No acute intracranial abnormality. Dictated by: Osmani Minaya M.D. on 07/25/2021 at 22:41 Approved by: Osmani Minaya M.D. on 07/25/2021 at 22:43
[2021-07-25] MEDS: dexmedeTOMIDine in 0.9 % NaCL 400 MCG/100 ML PLAST..BAG IV (21:43)
[2021-07-25] MEDS: SODIUM CHLORIDE 0.9% 1,000 ML 150 ML IV (21:47)
[2021-07-25 22:03] LABS: Appearance Urine UA CLEAR; Bilirubin Urine UA NEGATIVE (NEGATIVE); Color Urine UA YELLOW; Glucose Urine UA NEGATIVE (Negative); Ketones Urine UA NEGATIVE (NEGATIVE); Leukocyte Esterase Urine UA NEGATIVE (NEGATIVE); Nitrite Urine UA NEGATIVE (Negative); Occult Blood Urine UA NEGATIVE (Negative); Protein Urine UA NEGATIVE (Negative); Specific Gravity Urine UA <=1.005 (1.000-1.035); Urobilinogen Urine UA 0.2 E.U./dL (0.2)
[2021-07-25 22:07] LABS: UR Morphine/Opiate cutoff 300 Negative (Negative); Ur Creatinine Normal (Normal); Ur Specific Gravity Normal (Normal); Urine Amphetamines Negative (Negative); Urine Barbiturates Negative (Negative); Urine Benzodiazepines Negative (Negative); Urine Cocaine Negative (Negative); Urine MDMA Negative (Negative); Urine Methadone Negative (Negative); Urine Methamphetamines Negative (Negative); Urine Oxycodone Negative (Negative); Urine Phencyclidine Negative (Negative); Urine Tetrahydrocannabinol Positive (Negative); Urine Tricyclic Antidepressant Negative (Negative); Urine pH Normal (Normal)
[2021-07-25 22:09] LABS: Bacteria Urine None Seen; Culture Indicated Urine Cult Not Indicated; RBC Urine None Seen (0-5/HPF); Urine Comments Microscopic Normal; WBC Urine None Seen (0-5/HPF)
[2021-07-25 22:27] LABS: Add Manual Diff / Slide Review NO; Basophils Absolute Auto 0 /uL (0-100); Basophils Percent Auto 1.5 % (0-2); Eosinophils Absolute Auto 0 /uL (0-450); Eosinophils Percent Auto 0.4 % (2-4); Hematocrit 33.9 % (41-53); Hemoglobin 11.5 g/dL (13.5-17.5); Lymphocytes Absolute Auto 1200 /uL (1100-4500); Lymphocytes Percent Auto 45.5 % (25-40); Mean Corpuscular HGB Conc 33.9 % (30-36); Mean Corpuscular Hemoglobin 31.1 PG (26-34); Mean Corpuscular Volume 91.9 fL (80-100); Monocytes Absolute Auto 200 /uL (0-900); Monocytes Percent Auto 7.1 % (3-14); Neutrophils Absolute Auto 1200 /uL (1500-7000); Neutrophils Percent Auto 45.5 % (50-75); Platelet Count 144 X10^3/uL (150-400); Red Blood Cell Count 3.69 X10^6/uL (4.5-5.9); Red Cell Distribution Width 14.8 % (11.6-14.8); White Blood Cell Count 2.7 X10^3/uL (4.5-11.0)
[2021-07-25 22:35] LABS: COVID19 -Nasal RAPID Negative (Negative)
--- NOTE | 2021-07-25 22:40 | ED.OVERDOSE ---
HPI - Overdose General Chief Complaint: Unresponsive Stated Complaint: ETOH/ intubated Time Seen by Provider: 07/25/21 21:25 Source: EMS Mode of arrival: EMS History of Present Illness HPI Narrative: 31M daily smoker with extensive alcohol history and polysubstance abuse presents by EMS after having been found (allegedly outside of his AA meeting) unresponsive laying against a wall. There was no obvious sign of trauma, but medics report he was surrounded by empty alcohol bottles. He has been here on numerous occasions and has been intubated in the past to guard his airway. He was given ketamine and rocuronium at 2100. Related Data Previous Rx's Medication Instructions Recorded lorazepam 1 mg tablet (Ativan) See Rx Instructions .ROUTE 09/30/19 .COMPLEX #18 tab Allergies Allergy/AdvReac Type Severity Reaction Status Date / Time shrimp [SHRIMP] Allergy Severe THROAT Verified 07/25/21 21:24 SWELLING/HIVES diazepam [From VALIUM] Allergy Intermediate LEG Verified 07/25/21 21:24 SWELLING haloperidol [From HALDOL] Allergy Unknown DYSTONIA Verified 07/25/21 21:24 naproxen [NAPROXEN] AdvReac Mild NAUSEA/GI Verified 07/25/21 21:24 DISTRESS Review of Systems Review of Systems ROS Unobtainable: Unobtainable due to mental status/LOC Patient History Medical History (Updated 07/26/21 @ 05:02 by Edward Rg DO) Alcoholism Depression Eating disorder Epilepsy Low back pain Family History Grandfather Type 2 diabetes mellitus without complication, 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 Social History household members: spouse, family and children Smoking Status: Current every day smoker alcohol intake: current Smoking Status: Current every day smoker alcohol intake frequency: 3 or more drinks per day Alcohol type: other Substance Use Type: does not use Exam Narrative Exam Narrative: GENERAL: [31] year old patient appears stated age. Well-developed patient, in mild distress. HEAD: Atraumatic. Normocephalic. EYES: Pupils equal round and reactive. Extraocular motions intact. No scleral icterus. No injection or drainage. ENT: Nose without bleeding, purulent drainage. Throat without erythema, tonsillar hypertrophy or exudate. Airway patent. NECK: Trachea midline. Non tender CARDIOVASCULAR: Regular rate and rhythm without murmurs, gallops, or rubs. RESPIRATORY: Clear to auscultation. Breath sounds equal bilaterally. No wheezes, rales, or rhonchi. GASTROINTESTINAL: Abdomen soft, non-tender, nondistended. EXTREMITIES: No edema or joint tenderness. BACK: Nontender without deformity or crepitance. No flank tenderness. NEURO: AOx3. SKIN: No rash or erythema of visible areas Initial Vital Signs Initial Vital Signs: Vital Signs Temperature 97.2 F L 07/25/21 21:10 Pulse Rate 87 07/25/21 21:10 Respiratory Rate 17 07/25/21 21:10 Blood Pressure 139/95 H 07/25/21 21:10 Pulse Oximetry 100 07/25/21 21:10 Course Orders Ordered: ED Orders 07/25/21 21:10 Ventilator Q2H 07/25/21 21:32 EKG-12 Lead Stat 07/25/21 21:33 CT cervical spine wo con Stat CT head/brain wo con Stat XR chest 1V Stat 07/25/21 21:35 COVID19 -Nasal swab/Pre-Proc Stat 07/25/21 21:49 Urinalysis and Microscopic Stat Urine Drug Screen, Rapid Stat 07/25/21 22:07 ABG [Arterial Blood Gas] Stat 07/25/21 22:18 Acetaminophen Stat Complete Blood Count AUTO DIFF Stat Comprehensive Metabolic Panel Stat Ethanol (ETOH) Stat Lactate (Lactic Acid) Stat Prolactin Stat Salicylate Stat Thyroid Stimulating Hormone Stat 07/25/21 23:00 Blood Culture Stat 07/26/21 01:45 Consult to Tele-control systems eng Routine 07/26/21 02:03 Sputum Culture Urgent 07/26/21 02:04 Education, smoking cessation ONGOING 07/26/21 02:05 Magnesium Urgent 07/26/21 04:26 Complete Blood Count AUTO DIFF Urgent Comprehensive Metabolic Panel Urgent NT-proBNP (BNP-Adult 18+) Urgent Prothrombin Time INR Urgent Enoxaparin Sodium (Enoxaparin 40 Mg/0.4 Ml Syringe) 40 mg SUBCUT DAILY HOLGER Folic Acid (Folic Acid 1 Mg Tablet) 1 mg PO DAILY HOLGER dexmedeTOMIDine in 0.9 % NaCL (Precedex) 400 mcg in 100 mls @ 3.289 mls/hr IV TITRATE HOLGER; Protocol Last Titration: 07/26/21 02:40 Dose: 0.6 mcg/kg/hr, 9.866 mls/hr Documented by: Titration: 07/26/21 01:09 Dose: 0.7 mcg/kg/hr, 11.51 mls/hr Documented by: Titration: 07/26/21 01:05 Dose: 0.4 mcg/kg/hr, 6.577 mls/hr Documented by: Admin: 07/25/21 21:43 Dose: 0.2 mcg/kg/hr, 3.289 mls/hr Documented by: MIRTA Sodium Chloride (Normal Saline 0.9%) 1,000 mls @ 150 mls/hr IV CONT HOLGER Last Infusion: 07/25/21 22:50 Dose: 0 mls/hr Documented by: Infusion: 07/25/21 21:50 Dose: 999 mls/hr Documented by: Admin: 07/25/21 21:47 Dose: 150 mls/hr Documented by: MIRTA Sodium Chloride (Normal Saline 0.9%) 1,000 mls @ 100 mls/hr IV CONT HOLGER Last Admin: 07/26/21 04:09 Dose: 100 mls/hr Documented by: MIRTA Multivitamins (Multivitamin 1 Tablet) 1 tab PO DAILY [facility] Naloxone HCl (Naloxone 0.4 Mg/Ml Vial) 0.2 mg IV Q2MIN PRN PRN Reason: Opiate Reversal Ondansetron HCl (Ondansetron 4 Mg/2 Ml Inj) 4 mg IV Q8HR PRN PRN Reason: Nausea And Vomiting Thiamine HCl (Thiamine 100 Mg Tablet) 100 mg PO DAILY HOLGER Stop: 07/29/21 09:01 Discontinued Medications Sodium Chloride 9 ml/ (Epinephrine HCl 0.1 mg) 0 ml IV NOW ONE Stop: 07/26/21 02:19 Last Admin: 07/26/21 02:18 Dose: 1 ml Documented by: MIRTA Sodium Chloride 9 ml/ (Epinephrine HCl 0.1 mg) 0 ml IV NOW ONE Stop: 07/26/21 02:37 Last Admin: 07/26/21 02:35 Dose: 1 ml Documented by: MIRTA Sodium Chloride (Normal Saline 0.9%) 1,000 mls @ 1,000 mls/hr IV BOLUS ONE Stop: 07/25/21 23:59 Last Infusion: 07/25/21 23:51 Dose: 0 mls/hr Documented by: Admin: 07/25/21 23:00 Dose: 1,000 mls/hr Documented by: CHERIE Sodium Chloride (Normal Saline 0.9%) 1,000 mls @ 1,000 mls/hr IV BOLUS ONE Stop: 07/26/21 03:00 Last Infusion: 07/26/21 04:08 Dose: 0 mls/hr Documented by: Admin: 07/26/21 02:16 Dose: 1,000 mls/hr Documented by: MIRTA Naloxone HCl (Naloxone 0.4 Mg/Ml Vial) 0.1 mg IV Q2MIN PRN PRN Reason: Opiate Reversal Consultations Consultation #1: upon receipt of labs and imaging a three way call placed to control systems eng (Chandrakant) and hospitalist (Nando) who are happy to accept patient. Currently no bed in ICU so patient will board. Vital Signs Vital signs: Vital Signs - 8 hr 07/25/21 21:10 07/25/21 21:24 07/25/21 21:26 Temperature 97.2 F L Pulse Rate 87 83 93 H Respiratory Rate 17 20 12 Blood Pressure 139/95 H 139/94 H Pulse Oximetry 100 100 100 07/25/21 21:30 07/25/21 21:45 07/25/21 22:00 Temperature Pulse Rate 85 73 66 Respiratory Rate 15 19 16 Blood Pressure 140/99 H 137/85 83/49 L Pulse Oximetry 96 100 100 07/25/21 22:06 07/25/21 22:15 07/25/21 22:20 Temperature Pulse Rate 62 61 53 L Respiratory Rate 16 16 16 Blood Pressure 82/48 L 81/47 L 81/47 L Pulse Oximetry 99 94 94 07/25/21 22:25 07/25/21 22:30 07/25/21 22:35 Temperature Pulse Rate 59 L 60 68 Respiratory Rate 16 16 16 Blood Pressure 85/50 L 92/52 L 108/69 Pulse Oximetry 94 95 100 07/25/21 22:40 07/25/21 22:41 07/25/21 22:45 Temperature Pulse Rate 61 61 57 L Respiratory Rate 3 L 17 16 Blood Pressure 101/62 104/56 L 99/54 L Pulse Oximetry 94 92 100 07/25/21 22:50 07/25/21 22:53 07/25/21 22:55 Temperature Pulse Rate 51 L 55 L 58 L Respiratory Rate 16 16 16 Blood Pressure 102/59 L 96/53 L 95/50 L Pulse Oximetry 100 100 100 07/25/21 22:56 07/25/21 23:00 07/25/21 23:05 Temperature Pulse Rate 59 L 57 L 56 L Respiratory Rate 16 16 16 Blood Pressure 92/50 L 86/52 L 78/48 L Pulse Oximetry 100 100 100 07/25/21 23:10 07/25/21 23:15 07/25/21 23:20 Temperature Pulse Rate 56 L 57 L 58 L Respiratory Rate 16 16 16 Blood Pressure 83/51 L 86/52 L 87/53 L Pulse Oximetry 100 100 100 07/25/21 23:25 07/25/21 23:30 07/25/21 23:35 Temperature Pulse Rate 57 L 56 L 53 L Respiratory Rate 16 16 16 Blood Pressure 86/52 L 85/52 L 93/53 L Pulse Oximetry 100 100 100 07/25/21 23:40 07/25/21 23:45 07/25/21 23:49 Temperature Pulse Rate 54 L 54 L 53 L Respiratory Rate 16 16 16 Blood Pressure 90/51 L 88/54 L Pulse Oximetry 100 100 100 07/25/21 23:50 07/25/21 23:55 07/26/21 00:00 Temperature Pulse Rate 53 L 53 L 52 L Respiratory Rate 16 16 16 Blood Pressure 88/53 L 85/51 L 85/51 L Pulse Oximetry 100 100 100 07/26/21 00:05 07/26/21 00:10 07/26/21 00:15 Temperature Pulse Rate 52 L 52 L 51 L Respiratory Rate 16 16 16 Blood Pressure 86/52 L 86/53 L 85/50 L Pulse Oximetry 100 100 100 07/26/21 00:20 07/26/21 00:25 07/26/21 00:30 Temperature Pulse Rate 53 L 53 L 53 L Respiratory Rate 16 16 16 Blood Pressure 87/53 L 90/55 L 93/56 L Pulse Oximetry 100 100 100 07/26/21 00:35 07/26/21 00:40 07/26/21 00:45 Temperature Pulse Rate 69 61 62 Respiratory Rate 22 16 16 Blood Pressure 106/66 105/67 104/66 Pulse Oximetry 100 100 100 07/26/21 00:50 07/26/21 00:55 07/26/21 01:00 Temperature Pulse Rate 61 61 63 Respiratory Rate 16 16 16 Blood Pressure 103/65 102/62 105/61 Pulse Oximetry 100 100 100 07/26/21 01:05 07/26/21 01:10 07/26/21 01:15 Temperature Pulse Rate 61 61 48 L Respiratory Rate 19 16 16 Blood Pressure 101/62 105/66 92/59 L Pulse Oximetry 100 100 100 07/26/21 01:20 07/26/21 01:25 07/26/21 01:30 Temperature Pulse Rate 59 L 58 L 57 L Respiratory Rate 16 16 16 Blood Pressure 87/55 L 79/48 L 79/49 L Pulse Oximetry 99 98 98 07/26/21 01:35 07/26/21 01:40 07/26/21 01:45 Temperature Pulse Rate 58 L 58 L 57 L Respiratory Rate 16 16 16 Blood Pressure 80/47 L 80/48 L 80/47 L Pulse Oximetry 98 98 98 07/26/21 01:50 07/26/21 01:55 07/26/21 02:00 Temperature Pulse Rate 58 L 58 L 58 L Respiratory Rate 16 16 16 Blood Pressure 80/49 L 79/45 L 78/45 L Pulse Oximetry 98 98 98 07/26/21 02:05 07/26/21 02:10 07/26/21 02:15 Temperature Pulse Rate 58 L 58 L 63 Respiratory Rate 16 16 16 Blood Pressure 78/46 L 80/47 L 90/55 L Pulse Oximetry 98 98 98 07/26/21 02:20 07/26/21 02:25 07/26/21 02:30 Temperature Pulse Rate 66 62 61 Respiratory Rate 16 16 16 Blood Pressure 89/52 L 79/43 L 81/45 L Pulse Oximetry 98 98 99 07/26/21 02:34 07/26/21 02:35 07/26/21 02:40 Temperature Pulse Rate 61 66 65 Respiratory Rate 16 16 16 Blood Pressure 105/60 102/57 L 84/45 L Pulse Oximetry 99 99 98 07/26/21 02:45 07/26/21 02:49 07/26/21 02:50 Temperature Pulse Rate 63 62 62 Respiratory Rate 16 16 16 Blood Pressure 82/45 L 86/49 L Pulse Oximetry 99 99 99 07/26/21 02:55 07/26/21 03:00 07/26/21 03:05 Temperature Pulse Rate 62 62 61 Respiratory Rate 16 16 16 Blood Pressure 86/50 L 87/53 L 88/54 L Pulse Oximetry 99 99 99 07/26/21 03:10 07/26/21 03:15 07/26/21 03:20 Temperature Pulse Rate 60 60 59 L Respiratory Rate 16 16 16 Blood Pressure 87/50 L 88/54 L 87/54 L Pulse Oximetry 98 98 98 07/26/21 03:25 07/26/21 03:30 07/26/21 03:35 Temperature Pulse Rate 59 L 58 L 58 L Respiratory Rate 16 16 16 Blood Pressure 87/53 L 88/55 L 87/55 L Pulse Oximetry 98 98 98 07/26/21 03:40 07/26/21 03:45 07/26/21 03:50 Temperature Pulse Rate 58 L 58 L 58 L Respiratory Rate 16 16 16 Blood Pressure 89/55 L 88/50 L 87/54 L Pulse Oximetry 99 99 97 07/26/21 03:55 07/26/21 04:00 Temperature Pulse Rate 58 L 59 L Respiratory Rate 16 16 Blood Pressure 86/54 L 86/54 L Pulse Oximetry 97 97 MDM - Overdose Lab Data Result diagrams: 07/26/21 04:26 07/26/21 04:26 Labs: Lab Results 07/25/21 07/25/21 07/25/21 Range/Units 21:35 21:49 21:49 WBC (4.5-11.0) X10^3/uL RBC (4.5-5.9) X10^6/uL Hgb (13.5-17.5) g/dL Hct (41-53) % MCV (80-100) fL MCH (26-34) PG MCHC (30-36) % RDW (11.6-14.8) % Plt Count (150-400) X10^3/uL Neut % (Auto) (50-75) % Lymph % (Auto) (25-40) % Loving % (Auto) (3-14) % Eos % (Auto) (2-4) % Baso % (Auto) (0-2) % Neut # (Auto) (5162-7523) /uL Lymph # (Auto) (8580-7601) /uL Loving # (Auto) (0-900) /uL Eos # (Auto) (0-450) /uL Baso # (Auto) (0-100) /uL PT (10.1-12.7) SECONDS INR (0.9-1.3) ABG pH (7.35-7.45) ABG pCO2 (35-45) mmHg ABG pO2 (80-100) mmHg ABG HCO3 (22-26) mmol/L ABG Total CO2 (21-31) mmol/L ABG O2 Saturation (95-100) % ABG Base Excess (-2-2) mmol/L FiO2 Sodium (137-145) mmol/L Potassium (3.4-5.1) mmol/L Chloride (98-107) mmol/L Carbon Dioxide (22-32) mmol/L BUN (9-20) mg/dL Creatinine (0.66-1.25) mg/dL Estimated GFR (>60) mL/min BUN/Creatinine Ratio (6-22) Glucose (70-100) mg/dL Lactate (0.7-2.1) mmol/L Calcium (8.4-10.2) mg/dL Magnesium (1.6-2.3) mg/dL Total Bilirubin (0.2-1.3) mg/dL AST (17-59) IU/L ALT (<50) IU/L Alkaline Phosphatase (38-126) U/L Total Protein (6.3-8.2) g/dL Albumin (3.5-5.0) g/dL Globulin (1.7-4.1) g/dL Albumin/Globulin Ratio (1.0-2.8) TSH (0.47-4.68) uIU/mL Prolactin (3.7-17.9) ng/mL Urine Color Yellow Urine Appearance Clear Urine pH 6.0 (4.5-8.0) Ur Specific [place] <=1.005 (1.000-1.035) Urine Protein Negative (Negative) Urine Glucose (UA) Negative (Negative) g/dL Urine Ketones Negative (NEGATIVE) Urine Occult Blood Negative (Negative) Urine Nitrate Negative (Negative) Urine Bilirubin Negative (NEGATIVE) Urine Urobilinogen 0.2 (0.2) E.U./dL Ur Leukocyte Esterase Negative (NEGATIVE) Urine RBC None seen (0-5/HPF) Urine WBC None seen (0-5/HPF) Urine Bacteria None seen (None) Ur Culture Indicated? Cult not indicated Micro UA Comment Microscopic normal Salicylates (<20) mg/dL U Opiates 300ng/mL cut Negative (Negative) Ur Oxycodone Screen Negative (Negative) Urine Methadone Screen Negative (Negative) Acetaminophen (10-30) ug/mL Ur Barbiturates Screen Negative (Negative) U Tricyclic Antidepress Negative (Negative) Ur Phencyclidine Scrn Negative (Negative) Ur Amphetamines Screen Negative (Negative) U Methamphetamines Scrn Negative (Negative) Ur MDMA Scrn (Ecstasy) Negative (Negative) U Benzodiazepines Scrn Negative (Negative) Urine Cocaine Screen Negative (Negative) U Marijuana (THC) Screen Positive H (Negative) Ethyl Alcohol ( - 10) mg/dL SARS-CoV-2 (PCR) Negative (Negative) 07/25/21 07/25/21 07/25/21 Range/Units 22:07 22:18 22:18 WBC 2.7 L (4.5-11.0) X10^3/uL RBC 3.69 L (4.5-5.9) X10^6/uL Hgb 11.5 L (13.5-17.5) g/dL Hct 33.9 L (41-53) % MCV 91.9 (80-100) fL MCH 31.1 (26-34) PG MCHC 33.9 (30-36) % RDW 14.8 (11.6-14.8) % Plt Count 144 L (150-400) X10^3/uL Neut % (Auto) 45.5 L (50-75) % Lymph % (Auto) 45.5 H (25-40) % Loving % (Auto) 7.1 (3-14) % Eos % (Auto) 0.4 L (2-4) % Baso % (Auto) 1.5 (0-2) % Neut # (Auto) 1200 L (0372-6862) /uL Lymph # (Auto) 1200 (5296-8348) /uL Loving # (Auto) 200 (0-900) /uL Eos # (Auto) 0 (0-450) /uL Baso # (Auto) 0 (0-100) /uL PT (10.1-12.7) SECONDS INR (0.9-1.3) ABG pH 7.36 (7.35-7.45) ABG pCO2 48.0 H (35-45) mmHg ABG pO2 190 H (80-100) mmHg ABG HCO3 27 H (22-26) mmol/L ABG Total CO2 29 (21-31) mmol/L ABG O2 Saturation 100 (95-100) % ABG Base Excess 2.0 (-2-2) mmol/L FiO2 50 Sodium 147 H (137-145) mmol/L Potassium 3.4 (3.4-5.1) mmol/L Chloride 109 H (98-107) mmol/L Carbon Dioxide 25 (22-32) mmol/L BUN 10 (9-20) mg/dL Creatinine 0.75 (0.66-1.25) mg/dL Estimated GFR > 60.0 (>60) mL/min BUN/Creatinine Ratio 13.3 (6-22) Glucose 94 (70-100) mg/dL Lactate (0.7-2.1) mmol/L Calcium 7.5 L (8.4-10.2) mg/dL Magnesium (1.6-2.3) mg/dL Total Bilirubin 0.5 (0.2-1.3) mg/dL AST 156 H (17-59) IU/L ALT 175 H (<50) IU/L Alkaline Phosphatase 42 (38-126) U/L Total Protein 6.9 (6.3-8.2) g/dL Albumin 4.1 (3.5-5.0) g/dL Globulin 2.8 (1.7-4.1) g/dL Albumin/Globulin Ratio 1.5 (1.0-2.8) TSH (0.47-4.68) uIU/mL Prolactin 50.4 H (3.7-17.9) ng/mL Urine Color Urine Appearance Urine pH (4.5-8.0) Ur Specific [place] (1.000-1.035) Urine Protein (Negative) Urine Glucose (UA) (Negative) g/dL Urine Ketones (NEGATIVE) Urine Occult Blood (Negative) Urine Nitrate (Negative) Urine Bilirubin (NEGATIVE) Urine Urobilinogen (0.2) E.U./dL Ur Leukocyte Esterase (NEGATIVE) Urine RBC (0-5/HPF) Urine WBC (0-5/HPF) Urine Bacteria (None) Ur Culture Indicated? Micro UA Comment Salicylates < 1.0 (<20) mg/dL U Opiates 300ng/mL cut (Negative) Ur Oxycodone Screen (Negative) Urine Methadone Screen (Negative) Acetaminophen < 10 L (10-30) ug/mL Ur Barbiturates Screen (Negative) U Tricyclic Antidepress (Negative) Ur Phencyclidine Scrn (Negative) Ur Amphetamines Screen (Negative) U Methamphetamines Scrn (Negative) Ur MDMA Scrn (Ecstasy) (Negative) U Benzodiazepines Scrn (Negative) Urine Cocaine Screen (Negative) U Marijuana (THC) Screen (Negative) Ethyl Alcohol 564 H* ( - 10) mg/dL SARS-CoV-2 (PCR) (Negative) 07/25/21 07/25/21 07/25/21 Range/Units 22:18 22:18 22:18 WBC (4.5-11.0) X10^3/uL RBC (4.5-5.9) X10^6/uL Hgb (13.5-17.5) g/dL Hct (41-53) % MCV (80-100) fL MCH (26-34) PG MCHC (30-36) % RDW (11.6-14.8) % Plt Count (150-400) X10^3/uL Neut % (Auto) (50-75) % Lymph % (Auto) (25-40) % Loving % (Auto) (3-14) % Eos % (Auto) (2-4) % Baso % (Auto) (0-2) % Neut # (Auto) (3658-8666) /uL Lymph # (Auto) (7810-1244) /uL Loving # (Auto) (0-900) /uL Eos # (Auto) (0-450) /uL Baso # (Auto) (0-100) /uL PT (10.1-12.7) SECONDS INR (0.9-1.3) ABG pH (7.35-7.45) ABG pCO2 (35-45) mmHg ABG pO2 (80-100) mmHg ABG HCO3 (22-26) mmol/L ABG Total CO2 (21-31) mmol/L ABG O2 Saturation (95-100) % ABG Base Excess (-2-2) mmol/L FiO2 Sodium (137-145) mmol/L Potassium (3.4-5.1) mmol/L Chloride (98-107) mmol/L Carbon Dioxide (22-32) mmol/L BUN (9-20) mg/dL Creatinine (0.66-1.25) mg/dL Estimated GFR (>60) mL/min BUN/Creatinine Ratio (6-22) Glucose (70-100) mg/dL Lactate 2.1 (0.7-2.1) mmol/L Calcium (8.4-10.2) mg/dL Magnesium 1.7 (1.6-2.3) mg/dL Total Bilirubin (0.2-1.3) mg/dL AST (17-59) IU/L ALT (<50) IU/L Alkaline Phosphatase (38-126) U/L Total Protein (6.3-8.2) g/dL Albumin (3.5-5.0) g/dL Globulin (1.7-4.1) g/dL Albumin/Globulin Ratio (1.0-2.8) TSH 0.839 (0.47-4.68) uIU/mL Prolactin (3.7-17.9) ng/mL Urine Color Urine Appearance Urine pH (4.5-8.0) Ur Specific [place] (1.000-1.035) Urine Protein (Negative) Urine Glucose (UA) (Negative) g/dL Urine Ketones (NEGATIVE) Urine Occult Blood (Negative) Urine Nitrate (Negative) Urine Bilirubin (NEGATIVE) Urine Urobilinogen (0.2) E.U./dL Ur Leukocyte Esterase (NEGATIVE) Urine RBC (0-5/HPF) Urine WBC (0-5/HPF) Urine Bacteria (None) Ur Culture Indicated? Micro UA Comment Salicylates (<20) mg/dL U Opiates 300ng/mL cut (Negative) Ur Oxycodone Screen (Negative) Urine Methadone Screen (Negative) Acetaminophen (10-30) ug/mL Ur Barbiturates Screen (Negative) U Tricyclic Antidepress (Negative) Ur Phencyclidine Scrn (Negative) Ur Amphetamines Screen (Negative) U Methamphetamines Scrn (Negative) Ur MDMA Scrn (Ecstasy) (Negative) U Benzodiazepines Scrn (Negative) Urine Cocaine Screen (Negative) U Marijuana (THC) Screen (Negative) Ethyl Alcohol ( - 10) mg/dL SARS-CoV-2 (PCR) (Negative) 07/26/21 07/26/21 07/26/21 Range/Units 00:33 04:26 04:26 WBC 2.9 L (4.5-11.0) X10^3/uL RBC 3.66 L (4.5-5.9) X10^6/uL Hgb 11.3 L (13.5-17.5) g/dL Hct 33.8 L (41-53) % MCV 92.5 (80-100) fL MCH 30.8 (26-34) PG MCHC 33.3 (30-36) % RDW 14.9 H (11.6-14.8) % Plt Count 126 L (150-400) X10^3/uL Neut % (Auto) 32.3 L (50-75) % Lymph % (Auto) 59.4 H (25-40) % Loving % (Auto) 7.0 (3-14) % Eos % (Auto) 0.4 L (2-4) % Baso % (Auto) 0.9 (0-2) % Neut # (Auto) 1000 L (5698-9757) /uL Lymph # (Auto) 1700 (6987-8483) /uL Loving # (Auto) 200 (0-900) /uL Eos # (Auto) 0 (0-450) /uL Baso # (Auto) 0 (0-100) /uL PT 12.7 (10.1-12.7) SECONDS INR 1.1 (0.9-1.3) ABG pH (7.35-7.45) ABG pCO2 (35-45) mmHg ABG pO2 (80-100) mmHg ABG HCO3 (22-26) mmol/L ABG Total CO2 (21-31) mmol/L ABG O2 Saturation (95-100) % ABG Base Excess (-2-2) mmol/L FiO2 Sodium (137-145) mmol/L Potassium (3.4-5.1) mmol/L Chloride (98-107) mmol/L Carbon Dioxide (22-32) mmol/L BUN (9-20) mg/dL Creatinine (0.66-1.25) mg/dL Estimated GFR (>60) mL/min BUN/Creatinine Ratio (6-22) Glucose (70-100) mg/dL Lactate 1.8 (0.7-2.1) mmol/L Calcium (8.4-10.2) mg/dL Magnesium (1.6-2.3) mg/dL Total Bilirubin (0.2-1.3) mg/dL AST (17-59) IU/L ALT (<50) IU/L Alkaline Phosphatase (38-126) U/L Total Protein (6.3-8.2) g/dL Albumin (3.5-5.0) g/dL Globulin (1.7-4.1) g/dL Albumin/Globulin Ratio (1.0-2.8) TSH (0.47-4.68) uIU/mL Prolactin (3.7-17.9) ng/mL Urine Color Urine Appearance Urine pH (4.5-8.0) Ur Specific [place] (1.000-1.035) Urine Protein (Negative) Urine Glucose (UA) (Negative) g/dL Urine Ketones (NEGATIVE) Urine Occult Blood (Negative) Urine Nitrate (Negative) Urine Bilirubin (NEGATIVE) Urine Urobilinogen (0.2) E.U./dL Ur Leukocyte Esterase (NEGATIVE) Urine RBC (0-5/HPF) Urine WBC (0-5/HPF) Urine Bacteria (None) Ur Culture Indicated? Micro UA Comment Salicylates (<20) mg/dL U Opiates 300ng/mL cut (Negative) Ur Oxycodone Screen (Negative) Urine Methadone Screen (Negative) Acetaminophen (10-30) ug/mL Ur Barbiturates Screen (Negative) U Tricyclic Antidepress (Negative) Ur Phencyclidine Scrn (Negative) Ur Amphetamines Screen (Negative) U Methamphetamines Scrn (Negative) Ur MDMA Scrn (Ecstasy) (Negative) U Benzodiazepines Scrn (Negative) Urine Cocaine Screen (Negative) U Marijuana (THC) Screen (Negative) Ethyl Alcohol ( - 10) mg/dL SARS-CoV-2 (PCR) (Negative) 07/26/21 Range/Units 04:26 WBC (4.5-11.0) X10^3/uL RBC (4.5-5.9) X10^6/uL Hgb (13.5-17.5) g/dL Hct (41-53) % MCV (80-100) fL MCH (26-34) PG MCHC (30-36) % RDW (11.6-14.8) % Plt Count (150-400) X10^3/uL Neut % (Auto) (50-75) % Lymph % (Auto) (25-40) % Loving % (Auto) (3-14) % Eos % (Auto) (2-4) % Baso % (Auto) (0-2) % Neut # (Auto) (9341-9696) /uL Lymph # (Auto) (9539-8723) /uL Loving # (Auto) (0-900) /uL Eos # (Auto) (0-450) /uL Baso # (Auto) (0-100) /uL PT (10.1-12.7) SECONDS INR (0.9-1.3) ABG pH (7.35-7.45) ABG pCO2 (35-45) mmHg ABG pO2 (80-100) mmHg ABG HCO3 (22-26) mmol/L ABG Total CO2 (21-31) mmol/L ABG O2 Saturation (95-100) % ABG Base Excess (-2-2) mmol/L FiO2 Sodium 148 H (137-145) mmol/L Potassium 3.1 L (3.4-5.1) mmol/L Chloride 113 H (98-107) mmol/L Carbon Dioxide 25 (22-32) mmol/L BUN 10 (9-20) mg/dL Creatinine 0.70 (0.66-1.25) mg/dL Estimated GFR > 60.0 (>60) mL/min BUN/Creatinine Ratio 14.3 (6-22) Glucose 91 (70-100) mg/dL Lactate (0.7-2.1) mmol/L Calcium 7.3 L (8.4-10.2) mg/dL Magnesium (1.6-2.3) mg/dL Total Bilirubin 0.2 (0.2-1.3) mg/dL AST 134 H (17-59) IU/L ALT 165 H (<50) IU/L Alkaline Phosphatase 45 (38-126) U/L Total Protein 6.5 (6.3-8.2) g/dL Albumin 3.7 (3.5-5.0) g/dL Globulin 2.8 (1.7-4.1) g/dL Albumin/Globulin Ratio 1.3 (1.0-2.8) TSH (0.47-4.68) uIU/mL Prolactin (3.7-17.9) ng/mL Urine Color Urine Appearance Urine pH (4.5-8.0) Ur Specific [place] (1.000-1.035) Urine Protein (Negative) Urine Glucose (UA) (Negative) g/dL Urine Ketones (NEGATIVE) Urine Occult Blood (Negative) Urine Nitrate (Negative) Urine Bilirubin (NEGATIVE) Urine Urobilinogen (0.2) E.U./dL Ur Leukocyte Esterase (NEGATIVE) Urine RBC (0-5/HPF) Urine WBC (0-5/HPF) Urine Bacteria (None) Ur Culture Indicated? Micro UA Comment Salicylates (<20) mg/dL U Opiates 300ng/mL cut (Negative) Ur Oxycodone Screen (Negative) Urine Methadone Screen (Negative) Acetaminophen (10-30) ug/mL Ur Barbiturates Screen (Negative) U Tricyclic Antidepress (Negative) Ur Phencyclidine Scrn (Negative) Ur Amphetamines Screen (Negative) U Methamphetamines Scrn (Negative) Ur MDMA Scrn (Ecstasy) (Negative) U Benzodiazepines Scrn (Negative) Urine Cocaine Screen (Negative) U Marijuana (THC) Screen (Negative) Ethyl Alcohol ( - 10) mg/dL SARS-CoV-2 (PCR) (Negative) Point of Care Testing Glucose POC [address] scan - head: Radiologist's Impression: [address] [id number] [address] Scan Report Signed Patient: Abhinav Herr MR#: [id number] : 1990 Acct:[id number] Age/Sex: 31 / M Date of Service: 07/25/21 Loc: ED Accession Number: [id number] ?? Procedure: CT head/brain wo con Ordering Provider: Edward Rg D.O. PROCEDURE:? CT HEAD/BRAIN WO CON ? INDICATIONS:? unresponsive, heavy etoh history ? TECHNIQUE:? Noncontrast 4.5 mm thick angled axial sections acquired from the foramen magnum to the vertex, with coronal and sagittal reformats.? For radiation dose reduction, the following was used:? automated exposure control, adjustment of mA and/or kV according to patient size.? ? COMPARISON:? [facility], CT, CT HEAD WITHOUT CONTRAST, 08/02/2019, 4:09.? [facility], CT, CT HEAD/BRAIN WO CON, 09/23/2018, 20:01.? [facility], CT, CT HEAD/BRAIN WO CON, 09/01/2018, 13:59. ? FINDINGS:? Image quality:? Excellent.? ? CSF spaces:? Basal cisterns are patent.? No extra-axial fluid collections.? Ventricles are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
[2021-07-25 22:53] LABS: Lactate (Lactic Acid) 2.1 mmol/L (0.7-2.1)
[2021-07-25 22:55] LABS: Acetaminophen < 10 ug/mL (10-30); Alanine Aminotransferase 175 IU/L (<50); Albumin 4.1 g/dL (3.5-5.0); Albumin Globulin Ratio 1.5 (1.0-2.8); Alkaline Phosphatase 42 U/L (38-126); Aspartate Aminotransferase 156 IU/L (17-59); BUN Creatinine Ratio 13.3 (6-22); Bilirubin Total 0.5 mg/dL (0.2-1.3); Blood Urea Nitrogen 10 mg/dL (9-20); Calcium 7.5 mg/dL (8.4-10.2); Carbon Dioxide 25 mmol/L (22-32); Chloride 109 mmol/L (98-107); Estimated Glomerular Filt Rate > 60.0 mL/min (>60); Globulin 2.8 g/dL (1.7-4.1); Glucose 94 mg/dL (70-100); Salicylate < 1.0 mg/dL (<20); Sodium 147 mmol/L (137-145); Total Protein 6.9 g/dL (6.3-8.2)
[2021-07-25 22:58] LABS: Potassium 3.4 mmol/L (3.4-5.1)
[2021-07-25] MEDS: SODIUM CHLORIDE 0.9% 1,000 ML 1000 ML IV (23:00)
[2021-07-25 23:03] LABS: HEMOLYSIS 54 (0-50)
[2021-07-25 23:04] LABS: Ethanol (ETOH) 564 mg/dL
[2021-07-25 23:11] LABS: Prolactin 50.4 ng/mL (3.7-17.9)
--- NOTE | 2021-07-25 23:17 | PC.NURSE ---
: Pt arrived via EMS intubated and sedated after being found unresponsive outside of an AA meeting with a bottle of alcohol next to him and a GCS of 6 for withdrawing from pain. Pt has a long standing history of ETOH and drug abuse dating back to 2017. Pt was RSI'd with Ketamine and Travis in the field. On arrival pt had 8.5 ETT placed in ambulance by EMS, 21 @ teeth, RR assisted via BVM. C-collar in place.HR 60's NSR, BP 110's/systolic. RT in room to place on vent. Settings 400/40/16/5. Connected to cardiac monitoring. Covered with warm blankets. Arrived with 18G RAC by EMS. 20G L hand placed and labs drawn. 18F OG placed to LIS with 300mL initial output. 16F murphy placed draining clear yellow urine. Pt placed on Precedex per MAR and IVF infusing. Pt transported to and from CT without issue. Remains in collar until Cspine cleared.
[2021-07-25 23:35] LABS: Thyroid Stimulating Hormone 0.839 uIU/mL (0.47-4.68)
[2021-07-26] VITALS (137 sets, daily range): BP systolic 78–117; BP diastolic 43–80; PULSE 44–75; RESP 0–25; TEMP 36.2; O2SAT 63–100
[2021-07-26 00:01] LABS: Fractionated Inspired Oxygen 50; HCO3 ABG 27 mmol/L (22-26); Oxygen Saturation ABG 100 % (95-100); PO2 ABG 190 mmHg (80-100); TCO2 ABG 29 mmol/L (21-31); pH ABG 7.36 (7.35-7.45)
[2021-07-26 00:21] LABS: Reflexed Lactate in 2 Hours Y
[2021-07-26] MEDS: KETAMINE 50 MG/5 ML *SYRINGE 65 MG IV ×3 (00:38→06:43)
[2021-07-26 01:01] LABS: Lactate 2HR (Lactic Acid Rflx) 1.8 mmol/L (0.7-2.1)
[2021-07-26] MEDS: SODIUM CHLORIDE 0.9% 1,000 ML 1000 ML IV (02:16)
[2021-07-26] MEDS: SODIUM CHLORIDE 0.9% FLUSH 9 ML, EPINEPHrine 0.1 MG IV ×2 (02:18→02:35)
[2021-07-26 02:53] LABS: Magnesium 1.7 mg/dL (1.6-2.3)
[2021-07-26] MEDS: SODIUM CHLORIDE 0.9% 1,000 ML 100 ML IV (04:09)
[2021-07-26 04:39] LABS: Add Manual Diff / Slide Review NO; Basophils Absolute Auto 0 /uL (0-100); Basophils Percent Auto 0.9 % (0-2); Eosinophils Absolute Auto 0 /uL (0-450); Eosinophils Percent Auto 0.4 % (2-4); Hematocrit 33.8 % (41-53); Hemoglobin 11.3 g/dL (13.5-17.5); Lymphocytes Absolute Auto 1700 /uL (1100-4500); Lymphocytes Percent Auto 59.4 % (25-40); Mean Corpuscular HGB Conc 33.3 % (30-36); Mean Corpuscular Hemoglobin 30.8 PG (26-34); Mean Corpuscular Volume 92.5 fL (80-100); Monocytes Absolute Auto 200 /uL (0-900); Neutrophils Absolute Auto 1000 /uL (1500-7000); Neutrophils Percent Auto 32.3 % (50-75); Platelet Count 126 X10^3/uL (150-400); Red Blood Cell Count 3.66 X10^6/uL (4.5-5.9); Red Cell Distribution Width 14.9 % (11.6-14.8); White Blood Cell Count 2.9 X10^3/uL (4.5-11.0)
[2021-07-26 04:47] LABS: INR 1.1 (0.9-1.3); Prothrombin Time 12.7 SECONDS (10.1-12.7)
[2021-07-26 04:51] LABS: Alanine Aminotransferase 165 IU/L (<50); Albumin 3.7 g/dL (3.5-5.0); Albumin Globulin Ratio 1.3 (1.0-2.8); Alkaline Phosphatase 45 U/L (38-126); Aspartate Aminotransferase 134 IU/L (17-59); BUN Creatinine Ratio 14.3 (6-22); Bilirubin Total 0.2 mg/dL (0.2-1.3); Blood Urea Nitrogen 10 mg/dL (9-20); Calcium 7.3 mg/dL (8.4-10.2); Carbon Dioxide 25 mmol/L (22-32); Chloride 113 mmol/L (98-107); Estimated Glomerular Filt Rate > 60.0 mL/min (>60); Globulin 2.8 g/dL (1.7-4.1); Glucose 91 mg/dL (70-100); HEMOLYSIS < 15 (0-50); Potassium 3.1 mmol/L (3.4-5.1); Sodium 148 mmol/L (137-145); Total Protein 6.5 g/dL (6.3-8.2)
[2021-07-26 05:00] LABS: NT-proBNP (BNP-Adult 18+) 63 pg/mL (<125)
[2021-07-26] MEDS: dexmedeTOMIDine in 0.9 % NaCL 400 MCG/100 ML PLAST..BAG 9.866 MCG IV (06:44)
--- NOTE | 2021-07-26 07:33 | PC.NURSE ---
Pt started fighting restraints at 0630. received order for ketamine. given as per order. RT in room at this time. She advanced ET tube to 26cm at the teeth. Checked restraints. No injury noted. Pt repositioned for comfort.
--- NOTE | 2021-07-26 09:04 | PC.NURSE ---
Advised by Dr. Hopkins that hospitalist wanted Pressudex titrated to 0.4mcg/kg/hr @ 0847, dose changed to benefit BP.
[2021-07-26] MEDS: ENOXAPARIN 40 MG/0.4 ML SYRINGE SUBCUT (09:31)
[2021-07-26] MEDS: propofoL 1,000 MG/100 ML VIAL 1.973 MG IV (09:32)
[2021-07-26] MEDS: fentaNYL 1,000 MCG in DEXTROSE 5% IN WATER 230 ML 11.51 ML IV (09:51)
--- NOTE | 2021-07-26 10:19 | P.HP_ITS ---
History of Present Illness History of Present Illness Date Patient Seen: 07/26/21 Time Patient Seen: 10:20 Chief complaint: ETOH/ intubated Narrative: Patient is a 31 y/o male with a history of alcoholism, depression, epilepsy who was found down last night outside of an AA meeting. Patient was surrounded by empty alcohol bottles. He was brought in by Medics and intubated for airway protection. Patient had no evidence of trauma. He was intubated placed on pre ccedex and ketamine. The patient subsequently developed bradycardia and hypotension. Both ketamine and precedex were stopped and he was started on propofol and fentnyl for sedation. The patient was found to have an alcohol level of 554 at 10 pm last night. He is minimally arousable now, although not following commands. The current plan is to discontinue fentnyl, propofol, start librium, and check spontaneous breathing to determine if it is safe to extubate this morning. Patient is unable to provide any history. All history is obtained via the medical record. Patient History Medical History Alcoholism Depression Eating disorder Epilepsy Low back pain Family & Social History Family History Grandfather Type 2 diabetes mellitus without complication, unspecified termination clerk insulin use status Grandmother Type 2 diabetes mellitus without complication, unspecified termination clerk insulin use status Mother Uncomplicated asthma, unspecified asthma severity Sister Uncomplicated asthma, unspecified asthma severity Unknown No problems noted. Social History: household members spouse,family,children Safety & Behavioral: Feels Safe in Current Unwilling to Answer Environment Been Physically Hurt or Unwilling to Answer Threatened By a Person Tobacco & Substance use: Tobacco type cannabis/marijuana Smoking Status Current every day smoker alcohol intake current alcohol intake frequency 3 or more drinks per day Substance Use Type does not use Meds Home Medications and Allergies Home Medications Medication Instructions Recorded Confirmed Type lorazepam 1 mg tablet (Ativan) See Rx Instructions .ROUTE 09/30/19 Rx .COMPLEX #18 tab Allergies Allergy/AdvReac Type Severity Reaction Status Date / Time shrimp [SHRIMP] Allergy Severe THROAT Verified 07/25/21 21:24 SWELLING/HIVES diazepam [From VALIUM] Allergy Intermediate LEG Verified 07/25/21 21:24 SWELLING haloperidol [From HALDOL] Allergy Unknown DYSTONIA Verified 07/25/21 21:24 naproxen [NAPROXEN] AdvReac Mild NAUSEA/GI Verified 07/25/21 21:24 DISTRESS Review of Systems Review of Systems Narrative: unobtainable as the patient is intubated and sedated Exam Vital Signs (past 8 hours): - 07/26/21 02:20 07/26/21 02:25 07/26/21 02:30 Pulse Rate 66 62 61 Respiratory Rate 16 16 16 Blood Pressure 89/52 L 79/43 L 81/45 L Pulse Oximetry 98 98 99 07/26/21 02:34 07/26/21 02:35 07/26/21 02:40 Pulse Rate 61 66 65 Respiratory Rate 16 16 16 Blood Pressure 105/60 102/57 L 84/45 L Pulse Oximetry 99 99 98 07/26/21 02:45 07/26/21 02:49 07/26/21 02:50 Pulse Rate 63 62 62 Respiratory Rate 16 16 16 Blood Pressure 82/45 L 86/49 L Pulse Oximetry 99 99 99 07/26/21 02:55 07/26/21 03:00 07/26/21 03:05 Pulse Rate 62 62 61 Respiratory Rate 16 16 16 Blood Pressure 86/50 L 87/53 L 88/54 L Pulse Oximetry 99 99 99 07/26/21 03:10 07/26/21 03:15 07/26/21 03:20 Pulse Rate 60 60 59 L Respiratory Rate 16 16 16 Blood Pressure 87/50 L 88/54 L 87/54 L Pulse Oximetry 98 98 98 07/26/21 03:25 07/26/21 03:30 07/26/21 03:35 Pulse Rate 59 L 58 L 58 L Respiratory Rate 16 16 16 Blood Pressure 87/53 L 88/55 L 87/55 L Pulse Oximetry 98 98 98 07/26/21 03:40 07/26/21 03:45 07/26/21 03:50 Pulse Rate 58 L 58 L 58 L Respiratory Rate 16 16 16 Blood Pressure 89/55 L 88/50 L 87/54 L Pulse Oximetry 99 99 97 07/26/21 03:55 07/26/21 04:00 07/26/21 04:05 Pulse Rate 58 L 59 L 68 Respiratory Rate 16 16 17 Blood Pressure 86/54 L 86/54 L 95/59 L Pulse Oximetry 97 97 98 07/26/21 04:10 07/26/21 04:15 07/26/21 04:20 Pulse Rate 58 L 62 59 L Respiratory Rate 16 17 16 Blood Pressure 91/51 L 95/55 L 97/58 L Pulse Oximetry 97 97 97 07/26/21 04:25 07/26/21 04:30 07/26/21 04:35 Pulse Rate 58 L 58 L 60 Respiratory Rate 16 16 16 Blood Pressure 93/53 L 99/58 L 100/61 Pulse Oximetry 97 98 99 07/26/21 04:40 07/26/21 04:45 07/26/21 04:50 Pulse Rate 60 59 L 59 L Respiratory Rate 16 16 16 Blood Pressure 97/58 L 94/53 L 90/50 L Pulse Oximetry 98 98 97 07/26/21 04:55 07/26/21 05:00 07/26/21 05:05 Pulse Rate 59 L 59 L 58 L Respiratory Rate 16 16 16 Blood Pressure 88/54 L 90/55 L 89/52 L Pulse Oximetry 97 97 97 07/26/21 05:10 07/26/21 05:15 07/26/21 05:20 Pulse Rate 57 L 57 L 57 L Respiratory Rate 16 16 16 Blood Pressure 88/54 L 92/55 L 91/51 L Pulse Oximetry 97 98 98 07/26/21 05:25 07/26/21 05:30 07/26/21 05:35 Pulse Rate 58 L 57 L 57 L Respiratory Rate 16 16 16 Blood Pressure 92/51 L 94/51 L 94/52 L Pulse Oximetry 98 98 98 07/26/21 05:40 07/26/21 05:45 07/26/21 05:50 Pulse Rate 56 L 57 L 56 L Respiratory Rate 16 16 16 Blood Pressure 94/52 L 95/50 L 93/50 L Pulse Oximetry 98 98 98 07/26/21 05:55 07/26/21 06:00 07/26/21 06:05 Pulse Rate 56 L 56 L 56 L Respiratory Rate 16 16 16 Blood Pressure 96/51 L 96/53 L 96/53 L Pulse Oximetry 99 99 99 07/26/21 06:10 07/26/21 06:15 07/26/21 06:30 Pulse Rate 56 L 56 L 57 L Respiratory Rate 16 16 17 Blood Pressure 95/53 L 96/53 L 96/54 L Pulse Oximetry 99 99 98 07/26/21 06:45 07/26/21 07:00 07/26/21 07:15 Pulse Rate 57 L 60 59 L Respiratory Rate 16 16 16 Blood Pressure 99/57 L 94/55 L 94/56 L Pulse Oximetry 95 96 93 07/26/21 07:30 07/26/21 07:38 07/26/21 07:45 Pulse Rate 60 60 Respiratory Rate 16 16 16 Blood Pressure 92/54 L 92/54 L Pulse Oximetry 97 98 97 07/26/21 08:00 07/26/21 08:15 07/26/21 08:30 Pulse Rate 59 L 55 L 59 L Respiratory Rate 16 16 16 Blood Pressure 89/51 L 85/53 L 89/50 L Pulse Oximetry 98 98 97 07/26/21 08:39 07/26/21 08:40 07/26/21 08:45 Pulse Rate 48 L 44 L 52 L Respiratory Rate 19 21 21 Blood Pressure 87/52 L 88/51 L Pulse Oximetry 100 100 99 07/26/21 08:48 07/26/21 08:50 07/26/21 09:14 Pulse Rate 56 L 57 L Respiratory Rate 16 19 Blood Pressure 95/54 L 93/52 L Pulse Oximetry 99 99 98 Fraction of Inspired Oxygen 25 Oxygen Delivery Method Mechanical Ventilation Oxygen Flow Rate 0 Narrative Exam Narrative: Thin white male lying in bed in with occassional movement HENMI Other: NC/AT, Cervical collar in place, Pupils pinpoint, scleral anicteric ET tube in place Resp Other: Lungs: clear to auscultation Cardio Other: RRR nl Sl S2 GI Other: Abd: soft/ non tender/non distended Other: murphy catheter in place, normal phallus without lesions Skin Other: No lesions noted Extrem Other: No edema Psych Other: Sedated on the ventilator Objective Labs Result Diagrams: 07/26/21 04:26 07/26/21 04:26 Labs: Laboratory Results - last 24 hr 07/25/21 07/25/21 07/25/21 21:35 21:49 21:49 WBC RBC Hgb Hct MCV MCH MCHC RDW Plt Count Neut % (Auto) Lymph % (Auto) [place] % (Auto) Eos % (Auto) Baso % (Auto) Neut # (Auto) Lymph # (Auto) [place] # (Auto) Eos # (Auto) Baso # (Auto) PT INR ABG pH ABG pCO2 ABG pO2 ABG HCO3 ABG Total CO2 ABG O2 Saturation ABG Base Excess FiO2 Sodium Potassium Chloride Carbon Dioxide BUN Creatinine Estimated GFR BUN/Creatinine Ratio Glucose Lactate Calcium Magnesium Total Bilirubin AST ALT Alkaline Phosphatase NT-Pro-B Natriuret Pep Total Protein Albumin Globulin Albumin/Globulin Ratio TSH Prolactin Urine Color Yellow Urine Appearance Clear Urine pH 6.0 Ur Specific [place] <=1.005 Urine Protein Negative Urine Glucose (UA) Negative Urine Ketones Negative Urine Occult Blood Negative Urine Nitrate Negative Urine Bilirubin Negative Urine Urobilinogen 0.2 Ur Leukocyte Esterase Negative Urine RBC None seen Urine WBC None seen Urine Bacteria None seen Ur Culture Indicated? Cult not indicated Micro UA Comment Microscopic normal Salicylates U Opiates 300ng/mL cut Negative Ur Oxycodone Screen Negative Urine Methadone Screen Negative Acetaminophen Ur Barbiturates Screen Negative U Tricyclic Antidepress Negative Ur Phencyclidine Scrn Negative Ur Amphetamines Screen Negative U Methamphetamines Scrn Negative Ur MDMA Scrn (Ecstasy) Negative U Benzodiazepines Scrn Negative Urine Cocaine Screen Negative U Marijuana (THC) Screen Positive H Ethyl Alcohol SARS-CoV-2 (PCR) Negative 07/25/21 07/25/21 07/25/21 22:07 22:18 22:18 WBC 2.7 L RBC 3.69 L Hgb 11.5 L Hct 33.9 L MCV 91.9 MCH 31.1 MCHC 33.9 RDW 14.8 Plt Count 144 L Neut % (Auto) 45.5 L Lymph % (Auto) 45.5 H [place] % (Auto) 7.1 Eos % (Auto) 0.4 L Baso % (Auto) 1.5 Neut # (Auto) 1200 L Lymph # (Auto) 1200 [place] # (Auto) 200 Eos # (Auto) 0 Baso # (Auto) 0 PT INR ABG pH 7.36 ABG pCO2 48.0 H ABG pO2 190 H ABG HCO3 27 H ABG Total CO2 29 ABG O2 Saturation 100 ABG Base Excess 2.0 FiO2 50 Sodium 147 H Potassium 3.4 Chloride 109 H Carbon Dioxide 25 BUN 10 Creatinine 0.75 Estimated GFR > 60.0 BUN/Creatinine Ratio 13.3 Glucose 94 Lactate Calcium 7.5 L Magnesium Total Bilirubin 0.5 AST 156 H ALT 175 H Alkaline Phosphatase 42 NT-Pro-B Natriuret Pep Total Protein 6.9 Albumin 4.1 Globulin 2.8 Albumin/Globulin Ratio 1.5 TSH Prolactin 50.4 H Urine Color Urine Appearance Urine pH Ur Specific [place] Urine Protein Urine Glucose (UA) Urine Ketones Urine Occult Blood Urine Nitrate Urine Bilirubin Urine Urobilinogen Ur Leukocyte Esterase Urine RBC Urine WBC Urine Bacteria Ur Culture Indicated? Micro UA Comment Salicylates < 1.0 U Opiates 300ng/mL cut Ur Oxycodone Screen Urine Methadone Screen Acetaminophen < 10 L Ur Barbiturates Screen U Tricyclic Antidepress Ur Phencyclidine Scrn Ur Amphetamines Screen U Methamphetamines Scrn Ur MDMA Scrn (Ecstasy) U Benzodiazepines Scrn Urine Cocaine Screen U Marijuana (THC) Screen Ethyl Alcohol 564 H* SARS-CoV-2 (PCR) 07/25/21 07/25/21 07/25/21 22:18 22:18 22:18 WBC RBC Hgb Hct MCV MCH MCHC RDW Plt Count Neut % (Auto) Lymph % (Auto) [place] % (Auto) Eos % (Auto) Baso % (Auto) Neut # (Auto) Lymph # (Auto) [place] # (Auto) Eos # (Auto) Baso # (Auto) PT INR ABG pH ABG pCO2 ABG pO2 ABG HCO3 ABG Total CO2 ABG O2 Saturation ABG Base Excess FiO2 Sodium Potassium Chloride Carbon Dioxide BUN Creatinine Estimated GFR BUN/Creatinine Ratio Glucose Lactate 2.1 Calcium Magnesium 1.7 Total Bilirubin AST ALT Alkaline Phosphatase NT-Pro-B Natriuret Pep Total Protein Albumin Globulin Albumin/Globulin Ratio TSH 0.839 Prolactin Urine Color Urine Appearance Urine pH Ur Specific [place] Urine Protein Urine Glucose (UA) Urine Ketones Urine Occult Blood Urine Nitrate Urine Bilirubin Urine Urobilinogen Ur Leukocyte Esterase Urine RBC Urine WBC Urine Bacteria Ur Culture Indicated? Micro UA Comment Salicylates U Opiates 300ng/mL cut Ur Oxycodone Screen Urine Methadone Screen Acetaminophen Ur Barbiturates Screen U Tricyclic Antidepress Ur Phencyclidine Scrn Ur Amphetamines Screen U Methamphetamines Scrn Ur MDMA Scrn (Ecstasy) U Benzodiazepines Scrn Urine Cocaine Screen U Marijuana (THC) Screen Ethyl Alcohol SARS-CoV-2 (PCR) 07/26/21 07/26/21 07/26/21 00:33 04:26 04:26 WBC 2.9 L RBC 3.66 L Hgb 11.3 L Hct 33.8 L MCV 92.5 MCH 30.8 MCHC 33.3 RDW 14.9 H Plt Count 126 L Neut % (Auto) 32.3 L Lymph % (Auto) 59.4 H [place] % (Auto) 7.0 Eos % (Auto) 0.4 L Baso % (Auto) 0.9 Neut # (Auto) 1000 L Lymph # (Auto) 1700 [place] # (Auto) 200 Eos # (Auto) 0 Baso # (Auto) 0 PT 12.7 INR 1.1 ABG pH ABG pCO2 ABG pO2 ABG HCO3 ABG Total CO2 ABG O2 Saturation ABG Base Excess FiO2 Sodium Potassium Chloride Carbon Dioxide BUN Creatinine Estimated GFR BUN/Creatinine Ratio Glucose Lactate 1.8 Calcium Magnesium Total Bilirubin AST ALT Alkaline Phosphatase NT-Pro-B Natriuret Pep Total Protein Albumin Globulin Albumin/Globulin Ratio TSH Prolactin Urine Color Urine Appearance Urine pH Ur Specific [place] Urine Protein Urine Glucose (UA) Urine Ketones Urine Occult Blood Urine Nitrate Urine Bilirubin Urine Urobilinogen Ur Leukocyte Esterase Urine RBC Urine WBC Urine Bacteria Ur Culture Indicated? Micro UA Comment Salicylates U Opiates 300ng/mL cut Ur Oxycodone Screen Urine Methadone Screen Acetaminophen Ur Barbiturates Screen U Tricyclic Antidepress Ur Phencyclidine Scrn Ur Amphetamines Screen U Methamphetamines Scrn Ur MDMA Scrn (Ecstasy) U Benzodiazepines Scrn Urine Cocaine Screen U Marijuana (THC) Screen Ethyl Alcohol SARS-CoV-2 (PCR) 07/26/21 04:26 WBC RBC Hgb Hct MCV MCH MCHC RDW Plt Count Neut % (Auto) Lymph % (Auto) [place] % (Auto) Eos % (Auto) Baso % (Auto) Neut # (Auto) Lymph # (Auto) [place] # (Auto) Eos # (Auto) Baso # (Auto) PT INR ABG pH ABG pCO2 ABG pO2 ABG HCO3 ABG Total CO2 ABG O2 Saturation ABG Base Excess FiO2 Sodium 148 H Potassium 3.1 L Chloride 113 H Carbon Dioxide 25 BUN 10 Creatinine 0.70 Estimated GFR > 60.0 BUN/Creatinine Ratio 14.3 Glucose 91 Lactate Calcium 7.3 L Magnesium Total Bilirubin 0.2 AST 134 H ALT 165 H Alkaline Phosphatase 45 NT-Pro-B Natriuret Pep 63 Total Protein 6.5 Albumin 3.7 Globulin 2.8 Albumin/Globulin Ratio 1.3 TSH Prolactin Urine Color Urine Appearance Urine pH Ur Specific [place] Urine Protein Urine Glucose (UA) Urine Ketones Urine Occult Blood Urine Nitrate Urine Bilirubin Urine Urobilinogen Ur Leukocyte Esterase Urine RBC Urine WBC Urine Bacteria Ur Culture Indicated? Micro UA Comment Salicylates U Opiates 300ng/mL cut Ur Oxycodone Screen Urine Methadone Screen Acetaminophen Ur Barbiturates Screen U Tricyclic Antidepress Ur Phencyclidine Scrn Ur Amphetamines Screen U Methamphetamines Scrn Ur MDMA Scrn (Ecstasy) U Benzodiazepines Scrn Urine Cocaine Screen U Marijuana (THC) Screen Ethyl Alcohol SARS-CoV-2 (PCR) Assessment & Plan Assessment & Plan narrative: 31 y/o male with a history of depression, epilepsy, alcoholism, found down admit nita with an alcohol level of 564. Patient was intubated for airway protection. He appears more arousable today * Long history of alcoholism, although no admissions for 2.5 years * Cervical Spine CT reveals no evidence of cervical spine disease-can d/c C- Collar * Head CT, no intracranial abnormalities * Chest Xray-no infiltrates, effusions, ET tube in good position * For today, will discontinue fentanyl/propofol * Will obtain SAT, with goal to extubate today * Start Libium 50 q 6 hours * SW consult when more alert and awake * Hypotension/bradycardia likely secondary to propofol * Will continue IVF * If the patient becomes agitated, consider resuming precedex * If able to succesfully extubate, will continue librium, and transfer to Medical Floor * Pancytopenia * WBC 2.9, plts 126, HCT 33 * 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 Alcoholic Hepatitis * Elevated AST/ALT 156/175 * Will continue to monitor, anticipate they will improve once alcohol gone Depression * NOt currently on medications Epilepsy * No antiepileptic medications prescribed * Will discuss once he is awake I have utilized all available resources to review, update, and confirm the patients current medications The patient is intubated and sedated, he is unable to confirm advance directives, code status, or surrogate decision maker COVID-19 Result date/Date tested (Pos, Neg/Pending): 07/26/21 Time Spent With Patient Critical Care time: I spent a total of [] minutes of critical care time on this patient's care today; this time is exclusive of procedural time.
[2021-07-26] MEDS: chlordiazePOXIDE 25 MG CAPSULE 50 MG PO ×2 (10:30→12:30)
--- NOTE | 2021-07-26 10:48 | PC.NURSE ---
Per Dr. Jones: propofol drip was discontinued @ 1017 and Fentanyl drip discountinued at 1027. Fentanyl was titrated down 2ml every 3-5 mins for 10 mins, then stopped. Pt tolerated extubation process well. Pt alert to voice and resting comfortably with eyes closed. BP 102/56, HR 59, O2 100%
--- NOTE | 2021-07-26 11:13 | PC.NURSE ---
One to one care with patient: managing medication drip/titration, observation of HR, BP, suctioning vent, bedside care.
--- NOTE | 2021-07-26 13:44 | PC.NURSE ---
Addendum entered by Yamil Hernandez R.N. 07/26/21 14:13: Escorted pt to ED entrance. Pt walked independently with steady gait. Pt had all belongings with him. States he is going to his family's house. Addendum entered by Yamil Hernandez R.N. 07/26/21 14:05: Pt declines to answer any questions for admission to hospital due to he is leaving AMA. Pt dressed himself. IVs removed with cath tip intact. Pt declined assistance with transportation stating that where he's going isn't far from here. Original Note: Pt admitted to room 230 from ED via gurney. Pt is AO x4. Pt is able to walk with steady gait to bed and no assistive device. He is currently eating lunch without any difficulty. He states he does not wish to speak with AQUACULTURE DIRECTOR and does not want any sort of options for ETOH tx. He states that he had a recent loss (4 year old nephew of bone cancer) and that triggered him to relapse on ETOH. He is tearful. He tells me that he does not intend to spend his whole day here. He is requesting his IVs be discontinued. He is removing monitoring equipment and getting dressed. Notified AQUACULTURE DIRECTOR and hospitalist. Hospitalist rounded and explained need for hospitalization. Hospitalist advised pt of risks of leaving medical advice but explained that it was within his rights to leave. AQUACULTURE DIRECTOR at bedside at this time. Pt is calm and cooperative in speaking to AQUACULTURE DIRECTOR.
--- NOTE | 2021-07-26 14:02 | CM.DANOTE ---
Patient is a 31 year old male who was admitted on 07/25/21 after being found down and unresponsive and EMS was called and pt's BAL was .508 and empty bottles around him. EMR was reviewed. Per MD, pt was intubated in the ED and was admitted to ICU and successfully extubated and then requested to leave AMA. Per RN, pt requested not to talk to an MANAGER OF CORPORATE or material planner as he was not interested in any services or supports at this time and wanted to d/c home. met bedside with pt and discussed recommendation of staying for further ETOH withdrawal tx due to his significant hx of ETOH abuse and intubations in the past. Pt acknowledged understanding and still requested to leave AMA. GHAZALA called [facility] and confirmed no Crisis Alert or hold placed on pt and they have not been involved since pt's last admission to the hospital in 2019 for detainment under [place] [employer] for [facility] Inpt tx. GHAZALA met briefly bedside with pt and explained role and he confirms he has remained sober since 2020 pretty much and has attended AA meetings and utilized supports and has been doing quite well. Pt denies any suicidal ideation or attempt and confirms that his trigger was his 4 yo nephew recently dying from bone cancer and last night he and nephew's father went out drinking, and thats all on me. Pt feels dismayed that he had a rod last night and got so drunk and is regretful and states he knows how to get through this. Pt was fairly tearful regarding the passing of his nephew and declined resources but requested MANAGER OF CORPORATE card for the hospital and aware he can also come to the ED if he is struggling with his nephew's or remaining sober. Pt states his family is aware he is at the hospital and he declines SW calling them and plans to take his time walking home as he does not live far. RN working on AMA pwk and will pull pt's IV lines. Plan: Patient to leave AMA today and has a plan for overcoming his relapse and aware he can return to the hospital at any time and has SW contact number at the hospital. KANDI Thompson
--- NOTE | 2021-07-26 15:27 | P.DS_ITS ---
History of Present Illness History of Present Illness Date Patient Seen: 07/26/21 Chief complaint: ETOH/ intubated Narrative: Per Dr. Jones, Patient is a 31 y/o male with a history of alcoholism, depression, epilepsy who was found down last night outside of an AA meeting.? Patient was surrounded by empty alcohol bottles.? He was brought in by Medics and intubated for airway protection. Patient had no evidence of trauma.? He was intubated placed on preccedex and ketamine. The patient subsequently developed bradycardia and hypotension. Both ketamine and precedex were stopped and he was started on propofol and fentnyl for sedation.? The patient was found to have an alcohol level of 554 at 10 pm last night. He is minimally arousable now, although not following commands. The current plan is to discontinue fentnyl, propofol, start librium, and check spontaneous breathing to determine if it is safe to extubate this morning.? Patient is unable to provide any history.? All history is obtained via the medical record. Discharge Providers Provider Date of admission: 07/26/21 04:36 Discharge Date: 07/26/21 Consults: 07/26/21 01:45 Consult to Tele-genetic scientist Routine Comment: Consulting Provider: Mary Tele-intensivists Reason for consultation: Human Resources Compliance Manager services Has provider been notified: Yes Discharge provider: Ronnie Champion DO Summary Hospital Course Discharge Diagnosis: Alcohol intoxication Hypotension/bradycardia Pancytopenia Alcoholic Hepatitis Depression Epilepsy Hospital Course: 31 y/o male with a history of depression, epilepsy, alcoholism, found down admitted with an alcohol level of 564.? Patient was intubated for airway protection. Do to a lack of bed availability in the ICU the patient had a prolonged stay in the emergency room, and the patient was actually extubated in the emergency room successfully He initially had some hypotension and bradycardia due to sedation requirements which improved once discontinued. Very shortly after his arrival to the floor, now extubated, the patient got dressed and wanted to leave against medical advice. He was counseled on risks including possible seizure, from alcohol withdrawal, especially given his known history here. He stated that he had only been drinking for 2 days due to the of a relative, and that he had no desire to further drink, and that he would be fine. He refused evaluation by social work or any additional resources. He seemed to adequately comprehend the risks of leaving the hospital and the patient decided to leave against medical advice. Time Spent with Patient Time spent: Less than 30 minutes Exam Vital Signs (past 8 hours): - 07/26/21 07:30 07/26/21 07:38 07/26/21 07:45 Temperature Pulse Rate 60 60 Respiratory Rate 16 16 16 Blood Pressure 92/54 L 92/54 L Pulse Oximetry 97 98 97 07/26/21 08:00 07/26/21 08:15 07/26/21 08:30 Temperature Pulse Rate 59 L 55 L 59 L Respiratory Rate 16 16 16 Blood Pressure 89/51 L 85/53 L 89/50 L Pulse Oximetry 98 98 97 07/26/21 08:39 07/26/21 08:40 07/26/21 08:45 Temperature Pulse Rate 48 L 44 L 52 L Respiratory Rate 19 21 21 Blood Pressure 87/52 L 88/51 L Pulse Oximetry 100 100 99 07/26/21 08:48 07/26/21 08:50 07/26/21 08:55 Temperature Pulse Rate 56 L 57 L 57 L Respiratory Rate 16 19 18 Blood Pressure 95/54 L 93/52 L Pulse Oximetry 99 99 99 07/26/21 09:00 07/26/21 09:05 07/26/21 09:10 Temperature Pulse Rate 47 L 50 L 57 L Respiratory Rate 24 16 16 Blood Pressure 90/53 L 97/56 L 94/52 L Pulse Oximetry 99 98 98 07/26/21 09:14 07/26/21 09:15 07/26/21 09:20 Temperature Pulse Rate 48 L 57 L Respiratory Rate 16 16 Blood Pressure 92/54 L 94/56 L Pulse Oximetry 98 99 98 07/26/21 09:25 07/26/21 09:30 07/26/21 09:35 Temperature Pulse Rate 47 L 53 L 50 L Respiratory Rate 19 16 16 Blood Pressure 88/60 L 86/50 L 92/51 L Pulse Oximetry 100 99 100 07/26/21 09:40 07/26/21 09:45 07/26/21 09:50 Temperature Pulse Rate 57 L 57 L 57 L Respiratory Rate 17 16 16 Blood Pressure 94/52 L 93/51 L 93/52 L Pulse Oximetry 99 100 100 07/26/21 09:55 07/26/21 10:00 07/26/21 10:05 Temperature Pulse Rate 56 L 54 L 55 L Respiratory Rate 25 H 16 16 Blood Pressure 95/52 L 92/51 L 91/52 L Pulse Oximetry 100 100 100 07/26/21 10:10 07/26/21 10:15 07/26/21 10:17 Temperature Pulse Rate 56 L 58 L Respiratory Rate 16 16 Blood Pressure 92/51 L 94/53 L Pulse Oximetry 100 100 63 L 07/26/21 10:20 07/26/21 10:21 07/26/21 10:25 Temperature Pulse Rate 73 65 Respiratory Rate 21 18 Blood Pressure 96/59 L 83/51 L Pulse Oximetry 94 98 97 07/26/21 10:30 07/26/21 10:31 07/26/21 10:35 Temperature Pulse Rate 51 L 59 L 56 L Respiratory Rate 19 15 18 Blood Pressure 95/54 L 100/59 L Pulse Oximetry 98 98 100 07/26/21 10:40 07/26/21 10:45 07/26/21 10:50 Temperature Pulse Rate 52 L 57 L 61 Respiratory Rate 12 12 12 Blood Pressure 99/60 98/59 L 102/56 L Pulse Oximetry 99 100 100 07/26/21 10:55 07/26/21 11:00 07/26/21 11:10 Temperature Pulse Rate 63 60 56 L Respiratory Rate 12 11 L 12 Blood Pressure 100/55 L 99/58 L 102/59 L Pulse Oximetry 100 100 100 07/26/21 11:15 07/26/21 11:20 07/26/21 11:30 Temperature Pulse Rate 65 65 58 L Respiratory Rate 11 L 11 L 9 L Blood Pressure 106/62 89/51 L Pulse Oximetry 100 100 100 07/26/21 11:45 07/26/21 12:00 07/26/21 12:15 Temperature Pulse Rate 67 70 63 Respiratory Rate 10 L 21 18 Blood Pressure 95/52 L 92/50 L 92/54 L Pulse Oximetry 100 100 100 07/26/21 12:30 07/26/21 12:43 07/26/21 12:44 Temperature Pulse Rate 65 75 73 Respiratory Rate 12 21 17 Blood Pressure 92/54 L 93/50 L 93/50 L Pulse Oximetry 100 100 98 07/26/21 12:45 07/26/21 12:46 07/26/21 12:51 Temperature Pulse Rate 75 64 57 L Respiratory Rate 22 20 18 Blood Pressure 108/65 105/66 Pulse Oximetry 99 100 100 07/26/21 13:30 Temperature 97.2 F L Pulse Rate 74 Respiratory Rate 19 Blood Pressure 117/80 Pulse Oximetry 99 Fraction of Inspired Oxygen 25 Oxygen Delivery Method Room Air Oxygen Flow Rate 2 Narrative Exam Narrative: Gen: thin young male, mildly anxious but no acute distress. CV: RRR no m/r/g Abd: S NT ND Ext: no edema or joint effusions Neuro: Alert and oriented x3, no focal deficits. Psych:? Patient has a disheveled appearance, mildly anxious affect, mental status attitude thought context and judgment are appropriate for age. Objective Labs Result Diagrams: 07/26/21 04:26 07/26/21 04:26 Labs: Laboratory Results - last 24 hr 07/25/21 07/25/21 07/25/21 21:35 21:49 21:49 WBC RBC Hgb Hct MCV MCH MCHC RDW Plt Count Neut % (Auto) Lymph % (Auto) Mchenry % (Auto) Eos % (Auto) Baso % (Auto) Neut # (Auto) Lymph # (Auto) Mchenry # (Auto) Eos # (Auto) Baso # (Auto) PT INR ABG pH ABG pCO2 ABG pO2 ABG HCO3 ABG Total CO2 ABG O2 Saturation ABG Base Excess FiO2 Sodium Potassium Chloride Carbon Dioxide BUN Creatinine Estimated GFR BUN/Creatinine Ratio Glucose Lactate Calcium Magnesium Total Bilirubin AST ALT Alkaline Phosphatase NT-Pro-B Natriuret Pep Total Protein Albumin Globulin Albumin/Globulin Ratio TSH Prolactin Urine Color Yellow Urine Appearance Clear Urine pH 6.0 Ur Specific Atlantic <=1.005 Urine Protein Negative Urine Glucose (UA) Negative Urine Ketones Negative Urine Occult Blood Negative Urine Nitrate Negative Urine Bilirubin Negative Urine Urobilinogen 0.2 Ur Leukocyte Esterase Negative Urine RBC None seen Urine WBC None seen Urine Bacteria None seen Ur Culture Indicated? Cult not indicated Micro UA Comment Microscopic normal Salicylates U Opiates 300ng/mL cut Negative Ur Oxycodone Screen Negative Urine Methadone Screen Negative Acetaminophen Ur Barbiturates Screen Negative U Tricyclic Antidepress Negative Ur Phencyclidine Scrn Negative Ur Amphetamines Screen Negative U Methamphetamines Scrn Negative Ur MDMA Scrn (Ecstasy) Negative U Benzodiazepines Scrn Negative Urine Cocaine Screen Negative U Marijuana (THC) Screen Positive H Ethyl Alcohol SARS-CoV-2 (PCR) Negative 07/25/21 07/25/21 07/25/21 22:07 22:18 22:18 WBC 2.7 L RBC 3.69 L Hgb 11.5 L Hct 33.9 L MCV 91.9 MCH 31.1 MCHC 33.9 RDW 14.8 Plt Count 144 L Neut % (Auto) 45.5 L Lymph % (Auto) 45.5 H Mchenry % (Auto) 7.1 Eos % (Auto) 0.4 L Baso % (Auto) 1.5 Neut # (Auto) 1200 L Lymph # (Auto) 1200 Mchenry # (Auto) 200 Eos # (Auto) 0 Baso # (Auto) 0 PT INR ABG pH 7.36 ABG pCO2 48.0 H ABG pO2 190 H ABG HCO3 27 H ABG Total CO2 29 ABG O2 Saturation 100 ABG Base Excess 2.0 FiO2 50 Sodium 147 H Potassium 3.4 Chloride 109 H Carbon Dioxide 25 BUN 10 Creatinine 0.75 Estimated GFR > 60.0 BUN/Creatinine Ratio 13.3 Glucose 94 Lactate Calcium 7.5 L Magnesium Total Bilirubin 0.5 AST 156 H ALT 175 H Alkaline Phosphatase 42 NT-Pro-B Natriuret Pep Total Protein 6.9 Albumin 4.1 Globulin 2.8 Albumin/Globulin Ratio 1.5 TSH Prolactin 50.4 H Urine Color Urine Appearance Urine pH Ur Specific Atlantic Urine Protein Urine Glucose (UA) Urine Ketones Urine Occult Blood Urine Nitrate Urine Bilirubin Urine Urobilinogen Ur Leukocyte Esterase Urine RBC Urine WBC Urine Bacteria Ur Culture Indicated? Micro UA Comment Salicylates < 1.0 U Opiates 300ng/mL cut Ur Oxycodone Screen Urine Methadone Screen Acetaminophen < 10 L Ur Barbiturates Screen U Tricyclic Antidepress Ur Phencyclidine Scrn Ur Amphetamines Screen U Methamphetamines Scrn Ur MDMA Scrn (Ecstasy) U Benzodiazepines Scrn Urine Cocaine Screen U Marijuana (THC) Screen Ethyl Alcohol 564 H* SARS-CoV-2 (PCR) 07/25/21 07/25/21 07/25/21 22:18 22:18 22:18 WBC RBC Hgb Hct MCV MCH MCHC RDW Plt Count Neut % (Auto) Lymph % (Auto) Mchenry % (Auto) Eos % (Auto) Baso % (Auto) Neut # (Auto) Lymph # (Auto) Mchenry # (Auto) Eos # (Auto) Baso # (Auto) PT INR ABG pH ABG pCO2 ABG pO2 ABG HCO3 ABG Total CO2 ABG O2 Saturation ABG Base Excess FiO2 Sodium Potassium Chloride Carbon Dioxide BUN Creatinine Estimated GFR BUN/Creatinine Ratio Glucose Lactate 2.1 Calcium Magnesium 1.7 Total Bilirubin AST ALT Alkaline Phosphatase NT-Pro-B Natriuret Pep Total Protein Albumin Globulin Albumin/Globulin Ratio TSH 0.839 Prolactin Urine Color Urine Appearance Urine pH Ur Specific Atlantic Urine Protein Urine Glucose (UA) Urine Ketones Urine Occult Blood Urine Nitrate Urine Bilirubin Urine Urobilinogen Ur Leukocyte Esterase Urine RBC Urine WBC Urine Bacteria Ur Culture Indicated? Micro UA Comment Salicylates U Opiates 300ng/mL cut Ur Oxycodone Screen Urine Methadone Screen Acetaminophen Ur Barbiturates Screen U Tricyclic Antidepress Ur Phencyclidine Scrn Ur Amphetamines Screen U Methamphetamines Scrn Ur MDMA Scrn (Ecstasy) U Benzodiazepines Scrn Urine Cocaine Screen U Marijuana (THC) Screen Ethyl Alcohol SARS-CoV-2 (PCR) 07/26/21 07/26/21 07/26/21 00:33 04:26 04:26 WBC 2.9 L RBC 3.66 L Hgb 11.3 L Hct 33.8 L MCV 92.5 MCH 30.8 MCHC 33.3 RDW 14.9 H Plt Count 126 L Neut % (Auto) 32.3 L Lymph % (Auto) 59.4 H Mchenry % (Auto) 7.0 Eos % (Auto) 0.4 L Baso % (Auto) 0.9 Neut # (Auto) 1000 L Lymph # (Auto) 1700 Mchenry # (Auto) 200 Eos # (Auto) 0 Baso # (Auto) 0 PT 12.7 INR 1.1 ABG pH ABG pCO2 ABG pO2 ABG HCO3 ABG Total CO2 ABG O2 Saturation ABG Base Excess FiO2 Sodium Potassium Chloride Carbon Dioxide BUN Creatinine Estimated GFR BUN/Creatinine Ratio Glucose Lactate 1.8 Calcium Magnesium Total Bilirubin AST ALT Alkaline Phosphatase NT-Pro-B Natriuret Pep Total Protein Albumin Globulin Albumin/Globulin Ratio TSH Prolactin Urine Color Urine Appearance Urine pH Ur Specific [place] Urine Protein Urine Glucose (UA) Urine Ketones Urine Occult Blood Urine Nitrate Urine Bilirubin Urine Urobilinogen Ur Leukocyte Esterase Urine RBC Urine WBC Urine Bacteria Ur Culture Indicated? Micro UA Comment Salicylates U Opiates 300ng/mL cut Ur Oxycodone Screen Urine Methadone Screen Acetaminophen Ur Barbiturates Screen U Tricyclic Antidepress Ur Phencyclidine Scrn Ur Amphetamines Screen U Methamphetamines Scrn Ur MDMA Scrn (Ecstasy) U Benzodiazepines Scrn Urine Cocaine Screen U Marijuana (THC) Screen Ethyl Alcohol SARS-CoV-2 (PCR) 07/26/21 04:26 WBC RBC Hgb Hct MCV MCH MCHC RDW Plt Count Neut % (Auto) Lymph % (Auto) Mchenry % (Auto) Eos % (Auto) Baso % (Auto) Neut # (Auto) Lymph # (Auto) Mchenry # (Auto) Eos # (Auto) Baso # (Auto) PT INR ABG pH ABG pCO2 ABG pO2 ABG HCO3 ABG Total CO2 ABG O2 Saturation ABG Base Excess FiO2 Sodium 148 H Potassium 3.1 L Chloride 113 H Carbon Dioxide 25 BUN 10 Creatinine 0.70 Estimated GFR > 60.0 BUN/Creatinine Ratio 14.3 Glucose 91 Lactate Calcium 7.3 L Magnesium Total Bilirubin 0.2 AST 134 H ALT 165 H Alkaline Phosphatase 45 NT-Pro-B Natriuret Pep 63 Total Protein 6.5 Albumin 3.7 Globulin 2.8 Albumin/Globulin Ratio 1.3 TSH Prolactin Urine Color Urine Appearance Urine pH Ur Specific [place] Urine Protein Urine Glucose (UA) Urine Ketones Urine Occult Blood Urine Nitrate Urine Bilirubin Urine Urobilinogen Ur Leukocyte Esterase Urine RBC Urine WBC Urine Bacteria Ur Culture Indicated? Micro UA Comment Salicylates U Opiates 300ng/mL cut Ur Oxycodone Screen Urine Methadone Screen Acetaminophen Ur Barbiturates Screen U Tricyclic Antidepress Ur Phencyclidine Scrn Ur Amphetamines Screen U Methamphetamines Scrn Ur MDMA Scrn (Ecstasy) U Benzodiazepines Scrn Urine Cocaine Screen U Marijuana (THC) Screen Ethyl Alcohol SARS-CoV-2 (PCR) [facility] Medical History Alcoholism Depression Eating disorder Epilepsy Low back pain Family History Grandfather Type 2 diabetes mellitus without complication, unspecified terminal manager insulin use status Grandmother Type 2 diabetes mellitus without complication, unspecified longterm insulin use status Mother Uncomplicated asthma, unspecified asthma severity Sister Uncomplicated asthma, unspecified asthma severity Unknown No problems noted. Social History household members: spouse, family and children Smoking Status: Current every day smoker alcohol intake: current Discharge Plan Discharge Plan Patient Disposition: Left Against Medical Advice Discharge orders & Medications Prescriptions: Discontinued lorazepam [Ativan] 1 mg tablet See Rx Instructions .ROUTE .COMPLEX Qty: 18 0RF Rx Instructions: Two tablets p.o. Q 6 hours times 24 hours, then 1 tablet p.o. Q 6 hours for 48 hours, then 1 tablet p.o. q.12 hours times 24 hours. Visit Report/Discharge Packet Stand Alone Forms: Naloxone Standing Order ALLAN
== END 2021-07-26 14:10 | disposition left against medical advice (07) | DRG 770 ==
LOC: ED 21:52 → AC 07-26 05:02 → ICU 07-26 14:02 → AC 07-28 13:36 → ICU 07-28 13:36
PROVIDERS: Admitting Provider Nurse Practitioner Family; Emergency Provider Emergency Medicine; Referring Provider Emergency Medicine; Visit Provider Nurse Practitioner Family
DX: F10.229 Alcohol dependence with intoxication, unspecified (principal); K70.10 Alcoholic hepatitis without ascites; Y90.8 Blood alcohol level of 240 mg/100 ml or more; D61.818 Other pancytopenia; R00.1 Bradycardia, unspecified; I95.2 Hypotension due to drugs; T41.295A Adverse effect of other general anesthetics, initial encounter; F17.200 Nicotine dependence, unspecified, uncomplicated; Z20.822 Contact with and (suspected) exposure to COVID-19; Z53.29 Procedure and treatment not carried out because of patient's decision for other reasons
CPT/HCPCS: 31500; 36415; 36600; 70450; 71045; 72125; 80053; 80305; 80320; 80329; 81001; 82805; 82962; 83605; 83735; 83880; 84146; 84443; 85025; 85610; 87040; 87070; 87077; 87147; 87186; 87205; 87635; 93005; 93010; 94002; 94003; 94799; 96365; 96366; 96375; 99285; 99291; 99292; C9803; G0480; J0171; J1650; J2704; J3010

== ENCOUNTER 2022-03-15 14:05 | Observation (INO) | payer OTHER, MEDICAID, SELFPAY ==
[2018-09-23 22:26] VITALS: BMI 21.8
[2021-07-26 09:14] VITALS: PULSE 51; RESP 16; O2SAT 98
[2021-07-26 10:17] VITALS: RESP 15
[2022-03-15] VITALS (116 sets, daily range): BP systolic 81–110; BP diastolic 42–72; PULSE 73–103; RESP 7–26; TEMP 35.2–36.7; O2SAT 90–100; BMI 22.7
--- NOTE | 2022-03-15 14:06 | DI.CT.S_ITS ---
PROCEDURE: CT HEAD/BRAIN WO CON INDICATIONS: decreased mental status TECHNIQUE: Noncontrast 4.5 mm thick angled axial sections acquired from the foramen magnum to the vertex, with coronal and sagittal reformats. For radiation dose reduction, the following was used: automated exposure control, adjustment of mA and/or kV according to patient size. COMPARISON: None. FINDINGS: Image quality: Excellent. CSF spaces: Basal cisterns are patent. No extra-axial fluid collections. Ventricles are normal in size and shape. Brain: No midline shift. No intracranial masses or hemorrhage. Dey-white matter interface is normal. Skull and face: Calvarium and visualized facial bones are intact, without suspicious lesions. Sinuses: Visualized sinuses and mastoids are clear. IMPRESSION: No acute intracranial abnormality. Dictated by: Lucas Serna M.D. on 03/15/2022 at 14:32 Transcribed by: ZAHIDA on 03/15/2022 at 14:36 Approved by: Lucas Serna M.D. on 03/15/2022 at 14:38
--- NOTE | 2022-03-15 14:06 | DI.RAD.S_ITS ---
PROCEDURE: XR CHEST 1V INDICATIONS: decreased mental status TECHNIQUE: One view of the chest was acquired. COMPARISON: None. FINDINGS: Surgical changes and devices: None. Lungs and pleura: Lungs are clear. No pleural effusions or pneumothorax. Mediastinum: Mediastinal contours appear normal. Heart size is normal. Bones and chest wall: No suspicious bony lesions. Overlying soft tissues appear unremarkable. IMPRESSION: No acute cardiopulmonary pathology. Dictated by: Addy Alex M.D. on 03/15/2022 at 14:23 Approved by: Addy Alex M.D. on 03/15/2022 at 14:23
[2022-03-15] MEDS: NALOXONE 1 MG/ML SYRINGE 2 MG IV (14:17)
[2022-03-15 14:20] LABS: Add Manual Diff / Slide Review NO; Basophils Absolute Auto 0 /uL (0-100); Basophils Percent Auto 0.5 % (0-2); Eosinophils Absolute Auto 100 /uL (0-450); Eosinophils Percent Auto 1.2 % (2-4); Hematocrit 37.1 % (41-53); Hemoglobin 12.8 g/dL (13.5-17.5); Lymphocytes Absolute Auto 2800 /uL (1100-4500); Lymphocytes Percent Auto 50.2 % (25-40); Mean Corpuscular HGB Conc 34.5 % (30-36); Mean Corpuscular Hemoglobin 29.6 PG (26-34); Mean Corpuscular Volume 85.8 fL (80-100); Monocytes Absolute Auto 300 /uL (0-900); Neutrophils Absolute Auto 2400 /uL (1500-7000); Neutrophils Percent Auto 42.1 % (50-75); Platelet Count 168 X10^3/uL (150-400); Red Blood Cell Count 4.33 X10^6/uL (4.5-5.9); Red Cell Distribution Width 15.6 % (11.6-14.8); White Blood Cell Count 5.6 X10^3/uL (4.5-11.0)
[2022-03-15 14:29] LABS: Prothrombin Time 11.8 SECONDS (10.1-12.7)
[2022-03-15] MEDS: SODIUM CHLORIDE 0.9% 1,000 ML 150 ML IV (14:29)
[2022-03-15 14:31] LABS: PTT Partial Thromboplastin Tim 37 SECONDS (26-36)
[2022-03-15 14:37] LABS: Acetaminophen < 10 ug/mL (10-30); Alanine Aminotransferase 30 IU/L (<50); Albumin 4.3 g/dL (3.5-5.0); Albumin Globulin Ratio 1.2 (1.0-2.8); Alkaline Phosphatase 75 U/L (38-126); Aspartate Aminotransferase 36 IU/L (17-59); BUN Creatinine Ratio 27.5 (6-22); Bilirubin Total 0.2 mg/dL (0.2-1.3); Blood Urea Nitrogen 19 mg/dL (9-20); Calcium 8.7 mg/dL (8.4-10.2); Carbon Dioxide 30 mmol/L (22-32); Chloride 103 mmol/L (98-107); Estimated Glomerular Filt Rate > 60 mL/min (>60); Globulin 3.6 g/dL (1.7-4.1); Glucose 80 mg/dL (70-100); HEMOLYSIS < 15 (0-50); Potassium 3.5 mmol/L (3.4-5.1); Salicylate < 1.0 mg/dL (<20); Sodium 147 mmol/L (137-145); Total Protein 7.9 g/dL (6.3-8.2)
[2022-03-15 14:44] LABS: Ethanol (ETOH) 366 mg/dL
[2022-03-15 14:53] LABS: Procalcitonin < 0.03 ng/mL (<0.5); Prolactin 14.1 ng/mL (3.7-17.9)
--- NOTE | 2022-03-15 14:55 | PC.NURSE ---
Addendum entered by Shea Encinas R.N. 03/15/22 16:50: Temp sensing murphy placed, patient's core temp 95.5, applied bare hugger and overhead radiant heat. Continues to not respond to verbal stimulus but is moving more adjusting self and rubbing face. Finger stick glucose 77, new orders per Dr Hopkins. Addendum entered by Shea Encinas R.N. 03/15/22 15:52: Patient continues to not respond to verbal commands, has had 2 episodes of movement with groaning but does not answer questions. Patient requires repositioning of head for airway support and continues with oxygen. Original Note: Patient has intermittent snoring respirations, turned him on left side and applied 2L oxygen by nasal cannula for support.
[2022-03-15 15:07] LABS: Thyroid Stimulating Hormone 2.16 uIU/mL (0.47-4.68)
--- NOTE | 2022-03-15 15:14 | ED_ITS ---
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 (38-126) U/L Ammonia (9-30) umol/L Total Protein (6.3-8.2) g/dL Albumin (3.5-5.0) g/dL Globulin (1.7-4.1) g/dL Albumin/Globulin Ratio (1.0-2.8) Procalcitonin (<0.5) ng/mL TSH 2.16 (0.47-4.68) uIU/mL Prolactin (3.7-17.9) ng/mL Urine Color Urine Appearance Urine pH (4.5-8.0) Ur Specific [place] (1.000-1.035) Urine Protein (Negative) Urine Glucose (UA) (Negative) g/dL Urine Ketones (NEGATIVE) Urine Occult Blood (Negative) Urine Nitrate (Negative) Urine Bilirubin (NEGATIVE) Urine Urobilinogen (0.2) E.U./dL Ur Leukocyte Esterase (NEGATIVE) Urine RBC (0-5/HPF) Urine WBC (0-5/HPF) Ur Squamous Epith Cells (0-5/HPF) Urine Bacteria (None) Salicylates (<20) mg/dL U Opiates 300ng/mL cut (Negative) Ur Oxycodone Screen (Negative) Urine Methadone Screen (Negative) Acetaminophen (10-30) ug/mL Ur Barbiturates Screen (Negative) U Tricyclic Antidepress (Negative) Ur Phencyclidine Scrn (Negative) Ur Amphetamines Screen (Negative) U Methamphetamines Scrn (Negative) Ur MDMA Scrn (Ecstasy) (Negative) U Benzodiazepines Scrn (Negative) Urine Cocaine Screen (Negative) U Marijuana (THC) Screen (Negative) Ethyl Alcohol ( - 10) mg/dL SARS-CoV-2 (PCR) (Negative) 03/15/22 03/15/22 03/15/22 Range/Units 15:36 16:28 16:32 WBC (4.5-11.0) X10^3/uL RBC (4.5-5.9) X10^6/uL Hgb (13.5-17.5) g/dL Hct (41-53) % MCV (80-100) fL MCH (26-34) PG MCHC (30-36) % RDW (11.6-14.8) % Plt Count (150-400) X10^3/uL Neut % (Auto) (50-75) % Lymph % (Auto) (25-40) % Curry % (Auto) (3-14) % Eos % (Auto) (2-4) % Baso % (Auto) (0-2) % Neut # (Auto) (9793-1953) /uL Lymph # (Auto) (6908-1763) /uL [place] # (Auto) (0-900) /uL Eos # (Auto) (0-450) /uL Baso # (Auto) (0-100) /uL PT (10.1-12.7) SECONDS INR (0.9-1.3) APTT (26-36) SECONDS Sodium (137-145) mmol/L Potassium (3.4-5.1) mmol/L Chloride (98-107) mmol/L Carbon Dioxide (22-32) mmol/L BUN (9-20) mg/dL Creatinine (0.66-1.25) mg/dL Estimated GFR (>60) mL/min BUN/Creatinine Ratio (6-22) Glucose (70-100) mg/dL Lactate 2.7 H (0.7-2.1) mmol/L Calcium (8.4-10.2) mg/dL Magnesium (1.6-2.3) mg/dL Total Bilirubin (0.2-1.3) mg/dL AST (17-59) IU/L ALT (<50) IU/L Alkaline Phosphatase (38-126) U/L Ammonia 14 (9-30) umol/L Total Protein (6.3-8.2) g/dL Albumin (3.5-5.0) g/dL Globulin (1.7-4.1) g/dL Albumin/Globulin Ratio (1.0-2.8) Procalcitonin (<0.5) ng/mL TSH (0.47-4.68) uIU/mL Prolactin (3.7-17.9) ng/mL Urine Color Urine Appearance Urine pH (4.5-8.0) Ur Specific [place] (1.000-1.035) Urine Protein (Negative) Urine Glucose (UA) (Negative) g/dL Urine Ketones (NEGATIVE) Urine Occult Blood (Negative) Urine Nitrate (Negative) Urine Bilirubin (NEGATIVE) Urine Urobilinogen (0.2) E.U./dL Ur Leukocyte Esterase (NEGATIVE) Urine RBC (0-5/HPF) Urine WBC (0-5/HPF) Ur Squamous Epith Cells (0-5/HPF) Urine Bacteria (None) Salicylates (<20) mg/dL U Opiates 300ng/mL cut (Negative) Ur Oxycodone Screen (Negative) Urine Methadone Screen (Negative) Acetaminophen (10-30) ug/mL Ur Barbiturates Screen (Negative) U Tricyclic Antidepress (Negative) Ur Phencyclidine Scrn (Negative) Ur Amphetamines Screen (Negative) U Methamphetamines Scrn (Negative) Ur MDMA Scrn (Ecstasy) (Negative) U Benzodiazepines Scrn (Negative) Urine Cocaine Screen (Negative) U Marijuana (THC) Screen (Negative) Ethyl Alcohol ( - 10) mg/dL SARS-CoV-2 (PCR) Negative (Negative) 03/15/22 03/15/22 03/15/22 Range/Units 16:35 16:35 18:18 WBC (4.5-11.0) X10^3/uL RBC (4.5-5.9) X10^6/uL Hgb (13.5-17.5) g/dL Hct (41-53) % MCV (80-100) fL MCH (26-34) PG MCHC (30-36) % RDW (11.6-14.8) % Plt Count (150-400) X10^3/uL Neut % (Auto) (50-75) % Lymph % (Auto) (25-40) % Curry % (Auto) (3-14) % Eos % (Auto) (2-4) % Baso % (Auto) (0-2) % Neut # (Auto) (8595-5558) /uL Lymph # (Auto) (1652-2180) /uL [place] # (Auto) (0-900) /uL Eos # (Auto) (0-450) /uL Baso # (Auto) (0-100) /uL PT (10.1-12.7) SECONDS INR (0.9-1.3) APTT (26-36) SECONDS Sodium (137-145) mmol/L Potassium (3.4-5.1) mmol/L Chloride (98-107) mmol/L Carbon Dioxide (22-32) mmol/L BUN (9-20) mg/dL Creatinine (0.66-1.25) mg/dL Estimated GFR (>60) mL/min BUN/Creatinine Ratio (6-22) Glucose (70-100) mg/dL Lactate 1.9 (0.7-2.1) mmol/L Calcium (8.4-10.2) mg/dL Magnesium (1.6-2.3) mg/dL Total Bilirubin (0.2-1.3) mg/dL AST (17-59) IU/L ALT (<50) IU/L Alkaline Phosphatase (38-126) U/L Ammonia (9-30) umol/L Total Protein (6.3-8.2) g/dL Albumin (3.5-5.0) g/dL Globulin (1.7-4.1) g/dL Albumin/Globulin Ratio (1.0-2.8) Procalcitonin (<0.5) ng/mL TSH (0.47-4.68) uIU/mL Prolactin (3.7-17.9) ng/mL Urine Color Yellow Urine Appearance Clear Urine pH 7.0 (4.5-8.0) Ur Specific [place] <=1.005 (1.000-1.035) Urine Protein Negative (Negative) Urine Glucose (UA) Negative (Negative) g/dL Urine Ketones Negative (NEGATIVE) Urine Occult Blood Negative (Negative) Urine Nitrate Negative (Negative) Urine Bilirubin Negative (NEGATIVE) Urine Urobilinogen 0.2 (0.2) E.U./dL Ur Leukocyte Esterase Negative (NEGATIVE) Urine RBC None seen (0-5/HPF) Urine WBC None seen (0-5/HPF) Ur Squamous Epith Cells 0-1 /hpf (0-5/HPF) Urine Bacteria None seen (None) Salicylates (<20) mg/dL U Opiates 300ng/mL cut Negative (Negative) Ur Oxycodone Screen Negative (Negative) Urine Methadone Screen Negative (Negative) Acetaminophen (10-30) ug/mL Ur Barbiturates Screen Negative (Negative) U Tricyclic Antidepress Negative (Negative) Ur Phencyclidine Scrn Negative (Negative) Ur Amphetamines Screen Negative (Negative) U Methamphetamines Scrn Negative (Negative) Ur MDMA Scrn (Ecstasy) Negative (Negative) U Benzodiazepines Scrn Negative (Negative) Urine Cocaine Screen Negative (Negative) U Marijuana (THC) Screen Negative (Negative) Ethyl Alcohol ( - 10) mg/dL SARS-CoV-2 (PCR) (Negative) Point of Care Testing Glucose POC [address] scan - head: Radiologist's Impression: [address] [address] [address] Scan Report Signed Patient: Casper Kunz MR#: [id number] : 03/15/1996 Acct:[id number] Age/Sex: 26 / M Date of Service: 03/15/22 Loc: ED Accession Number: [id number] ?? Procedure: CT head/brain wo con Ordering Provider: Katiana Hopkins D.O. PROCEDURE:? CT HEAD/BRAIN WO CON ? INDICATIONS:? decreased mental status ? TECHNIQUE:? Noncontrast 4.5 mm thick angled axial sections acquired from the foramen magnum to the vertex, with coronal and sagittal reformats.? For radiation dose reduction, the following was used:? automated exposure control, adjustment of mA and/or kV according to patient size.? ? COMPARISON:? None. ? FINDINGS:? Image quality:? Excellent.? ? CSF spaces:? Basal cisterns are patent.? No extra-axial fluid collections.? Ventricles are normal in size and shape.? ? Brain:? No midline shift.? No intracranial masses or hemorrhage.? Dey-white matter interface is normal.? ? Skull and face:? Calvarium and visualized facial bones are intact, without suspicious lesions.? ? Sinuses:? Visualized sinuses and mastoids are clear.? ? IMPRESSION:? No acute intracranial abnormality. ? ? Dictated by: Lucas Serna M.D. on 03/15/2022 at 14:32 ? Chest x-ray: Radiologist's Impression: ent: Casper Kunz MR#: [id number] : 03/15/1996 Acct:[id number] Age/Sex: 26 / M Date of Service: 03/15/22 Loc: ED Accession Number: [id number] ?? Procedure: XR chest 1V Ordering Provider: Katiana Hopkins D.O. PROCEDURE:? XR CHEST 1V ? INDICATIONS:? decreased mental status ? TECHNIQUE:? One view of the chest was acquired.? ? COMPARISON:? None. ? FINDINGS:? ? Surgical changes and devices:? None.? ? Lungs and pleura:? Lungs are clear.? No pleural effusions or pneumothorax.? ? Mediastinum:? Mediastinal contours appear normal.? Heart size is normal.? ? Bones and chest wall:? No suspicious bony lesions.? Overlying soft tissues appear unremarkable.? ? IMPRESSION:? No acute cardiopulmonary pathology. ? ? Dictated by: Addy Alex M.D. on 03/15/2022 at 14:23 ECG Data Interpretation: Sinus rhythm rate 80 p.r. interval 146 year respond 4 QTC 495 no priors to compare MDM Narrative Medical decision making narrative: Patient presents unresponsive. He is given 2 mg of Narcan with no response. He is sent CT scanner head CT is negative. He is found to be intoxicated with alcohol level of 366 he does have a elevated lactic acid of 3.0. Over the course of his stay his blood pressure is soft in the 90s and 100 he is given a normal saline which does seem to help. Glucose also found to be 773 was started on dextrose and given IV thiamine. He does start moving around in responding more but will not give us his name. Blood pressure remains slightly low going back to CT for any evidence of further trauma. A urine culture and blood cultures are pending for sepsis. He does not have leukocytosis Patient signed out to <Krunal Dunn MD - Last Filed: 03/15/22 22:25> Lab Data Labs: Lab Results 03/15/22 03/15/22 03/15/22 Range/Units 14:15 14:15 14:15 WBC 5.6 (4.5-11.0) X10^3/uL RBC 4.33 L (4.5-5.9) X10^6/uL Hgb 12.8 L (13.5-17.5) g/dL Hct 37.1 L (41-53) % MCV 85.8 (80-100) fL MCH 29.6 (26-34) PG MCHC 34.5 (30-36) % RDW 15.6 H (11.6-14.8) % Plt Count 168 (150-400) X10^3/uL Neut % (Auto) 42.1 L (50-75) % Lymph % (Auto) 50.2 H (25-40) % Curry % (Auto) 6.0 (3-14) % Eos % (Auto) 1.2 L (2-4) % Baso % (Auto) 0.5 (0-2) % Neut # (Auto) 2400 (0905-2647) /uL Lymph # (Auto) 2800 (9245-2597) /uL [place] # (Auto) 300 (0-900) /uL Eos # (Auto) 100 (0-450) /uL Baso # (Auto) 0 (0-100) /uL PT 11.8 (10.1-12.7) SECONDS INR 1.0 (0.9-1.3) APTT 37 H (26-36) SECONDS Sodium 147 H (137-145) mmol/L Potassium 3.5 (3.4-5.1) mmol/L Chloride 103 (98-107) mmol/L Carbon Dioxide 30 (22-32) mmol/L BUN 19 (9-20) mg/dL Creatinine 0.69 (0.66-1.25) mg/dL Estimated GFR > 60 (>60) mL/min BUN/Creatinine Ratio 27.5 H (6-22) Glucose 80 (70-100) mg/dL Lactate (0.7-2.1) mmol/L Calcium 8.7 (8.4-10.2) mg/dL Magnesium (1.6-2.3) mg/dL Total Bilirubin 0.2 (0.2-1.3) mg/dL AST 36 (17-59) IU/L ALT 30 (<50) IU/L Alkaline Phosphatase 75 (38-126) U/L Ammonia (9-30) umol/L Total Protein 7.9 (6.3-8.2) g/dL Albumin 4.3 (3.5-5.0) g/dL Globulin 3.6 (1.7-4.1) g/dL Albumin/Globulin Ratio 1.2 (1.0-2.8) Procalcitonin < 0.03 (<0.5) ng/mL TSH (0.47-4.68) uIU/mL Prolactin 14.1 (3.7-17.9) ng/mL Urine Color Urine Appearance Urine pH (4.5-8.0) Ur Specific [place] (1.000-1.035) Urine Protein (Negative) Urine Glucose (UA) (Negative) g/dL Urine Ketones (NEGATIVE) Urine Occult Blood (Negative) Urine Nitrate (Negative) Urine Bilirubin (NEGATIVE) Urine Urobilinogen (0.2) E.U./dL Ur Leukocyte Esterase (NEGATIVE) Urine RBC (0-5/HPF) Urine WBC (0-5/HPF) Ur Squamous Epith Cells (0-5/HPF) Urine Bacteria (None) Salicylates < 1.0 (<20) mg/dL U Opiates 300ng/mL cut (Negative) Ur Oxycodone Screen (Negative) Urine Methadone Screen (Negative) Acetaminophen < 10 (10-30) ug/mL Ur Barbiturates Screen (Negative) U Tricyclic Antidepress (Negative) Ur Phencyclidine Scrn (Negative) Ur Amphetamines Screen (Negative) U Methamphetamines Scrn (Negative) Ur MDMA Scrn (Ecstasy) (Negative) U Benzodiazepines Scrn (Negative) Urine Cocaine Screen (Negative) U Marijuana (THC) Screen (Negative) Ethyl Alcohol 366 H ( - 10) mg/dL SARS-CoV-2 (PCR) (Negative) 03/15/22 03/15/22 03/15/22 Range/Units 14:15 14:15 14:15 WBC (4.5-11.0) X10^3/uL RBC (4.5-5.9) X10^6/uL Hgb (13.5-17.5) g/dL Hct (41-53) % MCV (80-100) fL MCH (26-34) PG MCHC (30-36) % RDW (11.6-14.8) % Plt Count (150-400) X10^3/uL Neut % (Auto) (50-75) % Lymph % (Auto) (25-40) % [place] % (Auto) (3-14) % Eos % (Auto) (2-4) % Baso % (Auto) (0-2) % Neut # (Auto) (7293-3773) /uL Lymph # (Auto) (8143-2676) /uL [place] # (Auto) (0-900) /uL Eos # (Auto) (0-450) /uL Baso # (Auto) (0-100) /uL PT (10.1-12.7) SECONDS INR (0.9-1.3) APTT (26-36) SECONDS Sodium (137-145) mmol/L Potassium (3.4-5.1) mmol/L Chloride (98-107) mmol/L Carbon Dioxide (22-32) mmol/L BUN (9-20) mg/dL Creatinine (0.66-1.25) mg/dL Estimated GFR (>60) mL/min BUN/Creatinine Ratio (6-22) Glucose (70-100) mg/dL Lactate 3.0 H (0.7-2.1) mmol/L Calcium (8.4-10.2) mg/dL Magnesium 1.8 (1.6-2.3) mg/dL Total Bilirubin (0.2-1.3) mg/dL AST (17-59) IU/L ALT (<50) IU/L Alkaline Phosphatase (38-126) U/L Ammonia (9-30) umol/L Total Protein (6.3-8.2) g/dL Albumin (3.5-5.0) g/dL Globulin (1.7-4.1) g/dL Albumin/Globulin Ratio (1.0-2.8) Procalcitonin (<0.5) ng/mL TSH 2.16 (0.47-4.68) uIU/mL Prolactin (3.7-17.9) ng/mL Urine Color Urine Appearance Urine pH (4.5-8.0) Ur Specific [place] (1.000-1.035) Urine Protein (Negative) Urine Glucose (UA) (Negative) g/dL Urine Ketones (NEGATIVE) Urine Occult Blood (Negative) Urine Nitrate (Negative) Urine Bilirubin (NEGATIVE) Urine Urobilinogen (0.2) E.U./dL Ur Leukocyte Esterase (NEGATIVE) Urine RBC (0-5/HPF) Urine WBC (0-5/HPF) Ur Squamous Epith Cells (0-5/HPF) Urine Bacteria (None) Salicylates (<20) mg/dL U Opiates 300ng/mL cut (Negative) Ur Oxycodone Screen (Negative) Urine Methadone Screen (Negative) Acetaminophen (10-30) ug/mL Ur Barbiturates Screen (Negative) U Tricyclic Antidepress (Negative) Ur Phencyclidine Scrn (Negative) Ur Amphetamines Screen (Negative) U Methamphetamines Scrn (Negative) Ur MDMA Scrn (Ecstasy) (Negative) U Benzodiazepines Scrn (Negative) Urine Cocaine Screen (Negative) U Marijuana (THC) Screen (Negative) Ethyl Alcohol ( - 10) mg/dL SARS-CoV-2 (PCR) (Negative) 03/15/22 03/15/22 03/15/22 Range/Units 15:36 16:28 16:32 WBC (4.5-11.0) X10^3/uL RBC (4.5-5.9) X10^6/uL Hgb (13.5-17.5) g/dL Hct (41-53) % MCV (80-100) fL MCH (26-34) PG MCHC (30-36) % RDW (11.6-14.8) % Plt Count (150-400) X10^3/uL Neut % (Auto) (50-75) % Lymph % (Auto) (25-40) % [place] % (Auto) (3-14) % Eos % (Auto) (2-4) % Baso % (Auto) (0-2) % Neut # (Auto) (1169-2992) /uL Lymph # (Auto) (4557-6331) /uL [place] # (Auto) (0-900) /uL Eos # (Auto) (0-450) /uL Baso # (Auto) (0-100) /uL PT (10.1-12.7) SECONDS INR (0.9-1.3) APTT (26-36) SECONDS Sodium (137-145) mmol/L Potassium (3.4-5.1) mmol/L Chloride (98-107) mmol/L Carbon Dioxide (22-32) mmol/L BUN (9-20) mg/dL Creatinine (0.66-1.25) mg/dL Estimated GFR (>60) mL/min BUN/Creatinine Ratio (6-22) Glucose (70-100) mg/dL Lactate 2.7 H (0.7-2.1) mmol/L Calcium (8.4-10.2) mg/dL Magnesium (1.6-2.3) mg/dL Total Bilirubin (0.2-1.3) mg/dL AST (17-59) IU/L ALT (<50) IU/L Alkaline Phosphatase (38-126) U/L Ammonia 14 (9-30) umol/L Total Protein (6.3-8.2) g/dL Albumin (3.5-5.0) g/dL Globulin (1.7-4.1) g/dL Albumin/Globulin Ratio (1.0-2.8) Procalcitonin (<0.5) ng/mL TSH (0.47-4.68) uIU/mL Prolactin (3.7-17.9) ng/mL Urine Color Urine Appearance Urine pH (4.5-8.0) Ur Specific [place] (1.000-1.035) Urine Protein (Negative) Urine Glucose (UA) (Negative) g/dL Urine Ketones (NEGATIVE) Urine Occult Blood (Negative) Urine Nitrate (Negative) Urine Bilirubin (NEGATIVE) Urine Urobilinogen (0.2) E.U./dL Ur Leukocyte Esterase (NEGATIVE) Urine RBC (0-5/HPF) Urine WBC (0-5/HPF) Ur Squamous Epith Cells (0-5/HPF) Urine Bacteria (None) Salicylates (<20) mg/dL U Opiates 300ng/mL cut (Negative) Ur Oxycodone Screen (Negative) Urine Methadone Screen (Negative) Acetaminophen (10-30) ug/mL Ur Barbiturates Screen (Negative) U Tricyclic Antidepress (Negative) Ur Phencyclidine Scrn (Negative) Ur Amphetamines Screen (Negative) U Methamphetamines Scrn (Negative) Ur MDMA Scrn (Ecstasy) (Negative) U Benzodiazepines Scrn (Negative) Urine Cocaine Screen (Negative) U Marijuana (THC) Screen (Negative) Ethyl Alcohol ( - 10) mg/dL SARS-CoV-2 (PCR) Negative (Negative) 03/15/22 03/15/22 03/15/22 Range/Units 16:35 16:35 18:18 WBC (4.5-11.0) X10^3/uL RBC (4.5-5.9) X10^6/uL Hgb (13.5-17.5) g/dL Hct (41-53) % MCV (80-100) fL MCH (26-34) PG MCHC (30-36) % RDW (11.6-14.8) % Plt Count (150-400) X10^3/uL Neut % (Auto) (50-75) % Lymph % (Auto) (25-40) % [place] % (Auto) (3-14) % Eos % (Auto) (2-4) % Baso % (Auto) (0-2) % Neut # (Auto) (2818-8595) /uL Lymph # (Auto) (9401-2102) /uL [place] # (Auto) (0-900) /uL Eos # (Auto) (0-450) /uL Baso # (Auto) (0-100) /uL PT (10.1-12.7) SECONDS INR (0.9-1.3) APTT (26-36) SECONDS Sodium (137-145) mmol/L Potassium (3.4-5.1) mmol/L Chloride (98-107) mmol/L Carbon Dioxide (22-32) mmol/L BUN (9-20) mg/dL Creatinine (0.66-1.25) mg/dL Estimated GFR (>60) mL/min BUN/Creatinine Ratio (6-22) Glucose (70-100) mg/dL Lactate 1.9 (0.7-2.1) mmol/L Calcium (8.4-10.2) mg/dL Magnesium (1.6-2.3) mg/dL Total Bilirubin (0.2-1.3) mg/dL AST (17-59) IU/L ALT (<50) IU/L Alkaline Phosphatase (38-126) U/L Ammonia (9-30) umol/L Total Protein (6.3-8.2) g/dL Albumin (3.5-5.0) g/dL Globulin (1.7-4.1) g/dL Albumin/Globulin Ratio (1.0-2.8) Procalcitonin (<0.5) ng/mL TSH (0.47-4.68) uIU/mL Prolactin (3.7-17.9) ng/mL Urine Color Yellow Urine Appearance Clear Urine pH 7.0 (4.5-8.0) Ur Specific [place] <=1.005 (1.000-1.035) Urine Protein Negative (Negative) Urine Glucose (UA) Negative (Negative) g/dL Urine Ketones Negative (NEGATIVE) Urine Occult Blood Negative (Negative) Urine Nitrate Negative (Negative) Urine Bilirubin Negative (NEGATIVE) Urine Urobilinogen 0.2 (0.2) E.U./dL Ur Leukocyte Esterase Negative (NEGATIVE) Urine RBC None seen (0-5/HPF) Urine WBC None seen (0-5/HPF) Ur Squamous Epith Cells 0-1 /hpf (0-5/HPF) Urine Bacteria None seen (None) Salicylates (<20) mg/dL U Opiates 300ng/mL cut Negative (Negative) Ur Oxycodone Screen Negative (Negative) Urine Methadone Screen Negative (Negative) Acetaminophen (10-30) ug/mL Ur Barbiturates Screen Negative (Negative) U Tricyclic Antidepress Negative (Negative) Ur Phencyclidine Scrn Negative (Negative) Ur Amphetamines Screen Negative (Negative) U Methamphetamines Scrn Negative (Negative) Ur MDMA Scrn (Ecstasy) Negative (Negative) U Benzodiazepines Scrn Negative (Negative) Urine Cocaine Screen Negative (Negative) U Marijuana (THC) Screen Negative (Negative) Ethyl Alcohol ( - 10) mg/dL SARS-CoV-2 (PCR) (Negative) Point of Care Testing Glucose POC 128 Imaging Data Extremity x-ray #1: Radiologist's Impression: [address] [address] XRay Report Signed Patient: Casper Kunz MR#: [id number] : 05/20/1999 Acct:[id number] Age/Sex: 22 / M Date of Service: 03/15/22 Loc: ED Accession Number: [id number] ?? Procedure: XR ankle LT min 3V Ordering Provider: Krunal Dunn MD PROCEDURE:? XR ANKLE LT MIN 3V ? INDICATIONS:? Recent surgery ? TECHNIQUE:? 3 views of the ankle were acquired.? ? COMPARISON:? None. ? FINDINGS:? ? Bones:? Extensive postoperative hardware can be seen involving the distal tibia and distal fibula.? No findings of hardware failure or hardware loosening are seen. ? Healing fractures are seen involving the distal tibia and the distal fibula. ? Soft tissues:? Mild generalized soft tissue swelling is seen. ? ? IMPRESSION:? Extensive postoperative hardware, without complication seen. ? Healing fractures. ? Generalized soft tissue swelling. ? Dictated by: Gregory Hawkins M.D. on 03/15/2022 at 18:38 ? ? Approved by: Gregory Hawkins M.D. on 03/15/2022 at 18:39 ? CT - cervical spine: Radiologist's Impression: [address] [address] [address] Scan Report Signed Patient: Casper Kunz MR#: [id number] : 05/20/1999 Acct:[id number] Age/Sex: 22 / M Date of Service: 03/15/22 Loc: ED Accession Number: [id number] ?? Procedure: CT cervical spine wo con Ordering Provider: Katiana Hopkins D.O. PROCEDURE:? CT CERVICAL SPINE WO CON ? INDICATIONS:? unresponsive ? TECHNIQUE:? Noncontrast 3 mm thick sections acquired from the skull base to the T4 level.? Sagittal and coronal reformats were then constructed.? For radiation dose reduction, the following was used:? automated exposure control, adjustment of mA and/or kV according to patient size.? ? COMPARISON:? [facility], CT, CT HEAD/BRAIN WO CON, 03/15/2022, 14:19. ? FINDINGS:? Image quality:? Excellent.? ? Bones:? No fractures or dislocations.? Visualized superior ribs are intact.? Missing dentition.? ? Soft tissues:? Prevertebral soft tissues are normal in thickness.? No paravertebral hematomas.? No apical pneumothoraces.? Suspect small right tracheoceal.? Trace secretions in the maxillary sinuses.? ? ? IMPRESSION:? No acute osseous abnormality. ? ? ? Dictated by: Juan Swan M.D. on 03/15/2022 at 19:08 ? ? Approved by: Juan Swan M.D. on 03/15/2022 at 19:11 ? CT chest abdomen and pelvis: Radiologist's Impression: [address] [address] [address] Scan Report Signed Patient: Casper Kunz MR#: [id number] : 05/20/1999 Acct:[id number] Age/Sex: 22 / M Date of Service: 03/15/22 Loc: ED Accession Number: [id number] ?? Procedure: CT angio chest abdomen pelvis Ordering Provider: Katiana Hopkins D.O. PROCEDURE:? CT ANGIO CHEST ABDOMEN PELVIS ? INDICATIONS:? hypotensive unresponsive ? TECHNIQUE:? Precontrast 5 mm thick sections acquired from the lung apices to the iliac crests.? After the administration of intravenous contrast, 2.5 mm thick sections again acquired from the lung apices to the iliac crests.? Maximum intensity projection (MIP) oblique sagittal and coronal reformats were then acquired.? For radiation dose reduction, the following was used:? automated exposure control.? ? COMPARISON:? None. ? FINDINGS:? Image quality:? Good.? ? AORTA:? No acute aortic syndrome.? No aortic dissection. ? CHEST:? Lungs and pleura:? No acute airspace opacities.? Right lower lobe pulmonary nodule measuring 0.3 cm. No pleural effusions or pneumothorax.? Central and peripheral airways are patent and normal in caliber.? ? Mediastinum:? Heart size is normal.? No pericardial effusion.? No mediastinal or hilar adenopathy by size criteria.? Central pulmonary arteries are normal in size.? Esophagus is normal in caliber.? No hiatal hernias.? ? Bones and chest wall:? No axillary adenopathy by size criteria.? Thyroid gland is unremarkable.? No suspicious bony lesions.? No vertebral body compression fractures.? ? ? ABDOMEN:? Vasculature:? Narrowing at the origin of the celiac artery.? SMA is unremarkable.? Renal arteries unremarkable.? ESTEPHANIA is unremarkable.? ? Solid organs:? Liver is normal in size and enhancement.? Gallbladder is unremarkable.? Biliary system is non dilated.? Pancreas enhances normally.? Spleen is normal in size.? No adrenal nodules.? Both kidneys are normal in size and enhancement, without hydronephrosis.? ? Peritoneum and bowel:? No free fluid or air.? Bowel loops are normal in caliber and wall thickness.? ? Nodes and vessels:? No retroperitoneal or mesenteric adenopathy by size criteria.? Inferior vena cava is normal in morphology.? ? Miscellaneous:? No ventral hernias.? ? ? PELVIS:? Genitourinary:? Isabel catheter is in place.? ? Miscellaneous:? No inguinal hernias or adenopathy.? No ventral hernias.? ? Bones:? No suspicious bony lesions.? No fracture.? No vertebral body compression fractures.? ? ? IMPRESSION:? 1. No acute abnormality identified.? Lungs are clear.? No free fluid. ? 2. No aortic dissection. ? 3. Narrowing at the celiac artery origin.? 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 Consider further evaluation with follow-up mesenteric artery ultrasound Doppler.? Dictated by: Juan Swan M.D. on 03/15/2022 at 19:11 ? ? Approved by: Juan Swan M.D. on 03/15/2022 at 19:20 ? [facility] Narrative Medical decision making narrative: Patient presents unresponsive. He is given 2 mg of Narcan with no response. He is sent CT scanner head CT is negative. He is found to be intoxicated with alcohol level of 366 he does have a elevated lactic acid of 3.0. Over the course of his stay his blood pressure is soft in the 90s and 100 he is given a normal saline which does seem to help. Glucose also found to be 773 was started on dextrose and given IV thiamine. He does start moving around in responding more but will not give us his name. Blood pressure remains slightly low going back to CT for any evidence of further trauma. A urine culture and blood cultures are pending for sepsis. He does not have leukocytosis Patient signed out to I did speak with mother at bedside. Please see notes. Appropriate for admission for alcohol intoxication. Reviewed with hospitalist and agrees for admit. CT imaging otherwise reassuring. Patient does arouse to sternal rub. Will at times curse at the staff. Mother agrees for admission. Discharge Plan Departure Patient Disposition: Admitted as Observation Clinical Impression: Alcohol intoxication Admit Date/Time: 03/15/22 20:02 Admit Provider: Tess Collier
[2022-03-15 15:47] LABS: Ammonia (NH3) 14 umol/L (9-30)
[2022-03-15 16:15] LABS: Reflexed Lactate in 2 Hours Y
[2022-03-15] MEDS: SODIUM CHLORIDE 0.9% 1,000 ML 1000 ML IV ×2 (16:35→18:16)
[2022-03-15] MEDS: DEXTROSE 10 % IN WATER 1,000 ML 150 ML IV (16:47)
[2022-03-15 16:50] LABS: Lactate 2HR (Lactic Acid Rflx) 2.7 mmol/L (0.7-2.1)
[2022-03-15] MEDS: THIAMINE 200 MG in SODIUM CHLORIDE 0.9% 100 ML 408 MG IV (16:54)
[2022-03-15 16:57] LABS: Appearance Urine UA CLEAR; Bilirubin Urine UA NEGATIVE (NEGATIVE); Color Urine UA YELLOW; Glucose Urine UA NEGATIVE (Negative); Ketones Urine UA NEGATIVE (NEGATIVE); Leukocyte Esterase Urine UA NEGATIVE (NEGATIVE); Nitrite Urine UA NEGATIVE (Negative); Occult Blood Urine UA NEGATIVE (Negative); Protein Urine UA NEGATIVE (Negative); Specific Gravity Urine UA <=1.005 (1.000-1.035); Urobilinogen Urine UA 0.2 E.U./dL (0.2)
[2022-03-15 16:59] LABS: UR Morphine/Opiate cutoff 300 Negative (Negative); Ur Creatinine Normal (Normal); Ur Specific Gravity Normal (Normal); Urine Amphetamines Negative (Negative); Urine Barbiturates Negative (Negative); Urine Benzodiazepines Negative (Negative); Urine Cocaine Negative (Negative); Urine MDMA Negative (Negative); Urine Methadone Negative (Negative); Urine Methamphetamines Negative (Negative); Urine Oxycodone Negative (Negative); Urine Phencyclidine Negative (Negative); Urine Tetrahydrocannabinol Negative (Negative); Urine Tricyclic Antidepressant Negative (Negative); Urine pH Normal (Normal)
[2022-03-15 17:02] LABS: COVID19 -Nasal RAPID Negative (Negative)
[2022-03-15 17:17] LABS: Bacteria Urine None Seen; RBC Urine None Seen (0-5/HPF); Squamous Epithelial Cell Urine 0-1 /HPF (0-5/HPF); WBC Urine None Seen (0-5/HPF)
--- NOTE | 2022-03-15 18:15 | DI.CT.S_ITS ---
PROCEDURE: CT ANGIO CHEST ABDOMEN PELVIS INDICATIONS: hypotensive unresponsive TECHNIQUE: Precontrast 5 mm thick sections acquired from the lung apices to the iliac crests. After the administration of intravenous contrast, 2.5 mm thick sections again acquired from the lung apices to the iliac crests. Maximum intensity projection (MIP) oblique sagittal and coronal reformats were then acquired. For radiation dose reduction, the following was used: automated exposure control. COMPARISON: None. FINDINGS: Image quality: Good. AORTA: No acute aortic syndrome. No aortic dissection. CHEST: Lungs and pleura: No acute airspace opacities. Right lower lobe pulmonary nodule measuring 0.3 cm. No pleural effusions or pneumothorax. Central and peripheral airways are patent and normal in caliber. Mediastinum: Heart size is normal. No pericardial effusion. No mediastinal or hilar adenopathy by size criteria. Central pulmonary arteries are normal in size. Esophagus is normal in caliber. No hiatal hernias. Bones and chest wall: No axillary adenopathy by size criteria. Thyroid gland is unremarkable. No suspicious bony lesions. No vertebral body compression fractures. ABDOMEN: Vasculature: Narrowing at the origin of the celiac artery. SMA is unremarkable. Renal arteries unremarkable. ESTEPHANIA is unremarkable. Solid organs: Liver is normal in size and enhancement. Gallbladder is unremarkable. Biliary system is non dilated. Pancreas enhances normally. Spleen is normal in size. No adrenal nodules. Both kidneys are normal in size and enhancement, without hydronephrosis. Peritoneum and bowel: No free fluid or air. Bowel loops are normal in caliber and wall thickness. Nodes and vessels: No retroperitoneal or mesenteric adenopathy by size criteria. Inferior vena cava is normal in morphology. Miscellaneous: No ventral hernias. PELVIS: Genitourinary: Isabel catheter is in place. Miscellaneous: No inguinal hernias or adenopathy. No ventral hernias. Bones: No suspicious bony lesions. No fracture. No vertebral body compression fractures. IMPRESSION: 1. No acute abnormality identified. Lungs are clear. No free fluid. 2. No aortic dissection. 3. Narrowing at the celiac artery origin. This could be seen in median arcuate ligament syndrome. Consider further evaluation with follow-up mesenteric artery ultrasound Doppler. Dictated by: Juan Swan M.D. on 03/15/2022 at 19:11 Approved by: Juan Swan M.D. on 03/15/2022 at 19:20
--- NOTE | 2022-03-15 18:15 | DI.CT.S_ITS ---
PROCEDURE: CT CERVICAL SPINE WO CON INDICATIONS: unresponsive TECHNIQUE: Noncontrast 3 mm thick sections acquired from the skull base to the T4 level. Sagittal and coronal reformats were then constructed. For radiation dose reduction, the following was used: automated exposure control, adjustment of mA and/or kV according to patient size. COMPARISON: [facility], CT, CT HEAD/BRAIN WO CON, 03/15/2022, 14:19. FINDINGS: Image quality: Excellent. Bones: No fractures or dislocations. Visualized superior ribs are intact. Missing dentition. Soft tissues: Prevertebral soft tissues are normal in thickness. No paravertebral hematomas. No apical pneumothoraces. Suspect small right tracheoceal. Trace secretions in the maxillary sinuses. IMPRESSION: No acute osseous abnormality. Dictated by: Juan Swan M.D. on 03/15/2022 at 19:08 Approved by: Juan Swan M.D. on 03/15/2022 at 19:11
--- NOTE | 2022-03-15 18:27 | DI.RAD.S_ITS ---
PROCEDURE: XR ANKLE LT MIN 3V INDICATIONS: Recent surgery TECHNIQUE: 3 views of the ankle were acquired. COMPARISON: None. FINDINGS: Bones: Extensive postoperative hardware can be seen involving the distal tibia and distal fibula. No findings of hardware failure or hardware loosening are seen. Healing fractures are seen involving the distal tibia and the distal fibula. Soft tissues: Mild generalized soft tissue swelling is seen. IMPRESSION: Extensive postoperative hardware, without complication seen. Healing fractures. Generalized soft tissue swelling. Dictated by: Gregory Hawkins M.D. on 03/15/2022 at 18:38 Approved by: Gregory Hawkins M.D. on 03/15/2022 at 18:39
[2022-03-15 18:30] LABS: Lactate (Lactic Acid) 1.9 mmol/L (0.7-2.1)
[2022-03-15] MEDS: SODIUM CHLORIDE 0.9% 1,000 ML 125 ML IV (21:42)
[2022-03-15 22:15] LABS: Magnesium 1.8 mg/dL (1.6-2.3)
[2022-03-15] MEDS: LACTATED RINGERS 1,000 ML 100 ML IV (22:16)
[2022-03-16] VITALS (51 sets, daily range): BP systolic 93–116; BP diastolic 57–80; PULSE 73–98; RESP 8–26; O2SAT 95–98
--- NOTE | 2022-03-16 04:47 | P.HP_ITS ---
History of Present Illness History of Present Illness Date Patient Seen: 03/15/22 Time Patient Seen: 21:51 Chief complaint: unresponsive Narrative: Abhinav Herr is a 32 y/o male with a history of depression, epilepsy, alcoholism, found down brought in by EMS initially as a Casper Goodman. Per ED Dr. Hopkins: Patient is a 32-year-old male who presents as a Casper Goodman the passed out by the dumpsters.? Presumed alcohol intoxication.? No obvious sign of trauma.? He does respond to painful stimuli.? Is not talking localizes pain. Initially accepted admit of Casper Goodman in the time between admit and transfer to the floor patient was identified as Abhinav Herr, he has had repeated admits for alcohol intoxication being found down requiring intubation. It is reported that the patient was recently in [facility] for approximately 2 months for repair of a broken left ankle and most recently returned home within the past 48 hours, is reported to have gone out drinking and was subsequently found down by EMS. In ED patient was only responsive to sternal rub. Patient's vitals in ED blood pressure was soft systolics in the 80s, and required 2 L selma al cannula to support O2 saturation greater than 95%, he did not require intubation nor pressors. Upon admit to floor patient is arousable and able to coherently converse alert and orientated x3, though patient was unaware how he arrived at the hospital and believed that he brought himself in. He does endorse that he drink at least a 5th of vodka if not more earlier today. Admit vitals are stable but continued to be soft temp 98.1?, BP 86/42, HR 89, R 17, O2 saturation 96% on room air. Patient resting comfortably in no distress. Hemoglobin 12.8, hematocrit 37.1 these appear to be baseline chronic due to patient's ongoing alcohol abuse, CMP is WNL, prolactin, within normal limits. Initial lactate 3.0, repeat 2.7, repeat 1.3, procalcitonin TSH and ammonia WNL. Admitted with an alcohol level of 366. CTA is negative for any abnormalities, C-spine is negative, head CT is negative, chest x-ray is negative, ankle x-ray demonstrates healing fracture hardware without complication and place. Patient admitted for alcohol intoxication unresponsive. Admitting has created a duplicate chart on this patient-because he presented as Casper Goodman, therefore this chart appears empty for history and previous visits, I did personal review patient's previous chart notes in the system- there is a plan to merge his charts at a later time. Past medical history: Depression, epilepsy, alcoholism Past surgical history: left ankle reconstruction Family medical history: Patient denies any family medical history Patient lives with his mother, is frequently homeless, unemployed Patient has a significant history of alcohol abuse, reports that he drinks a 5th of vodka daily Is a daily smoker Denies any recreational substance use Patient History Family & Social History Social History: household members family Tobacco & Substance use: alcohol intake current Meds Home Medications and Allergies Allergies Allergy/AdvReac Type Severity Reaction Status Date / Time diazepam AdvReac Intermediate Verified 03/15/22 23:48 haloperidol [From Haldol] AdvReac Intermediate Verified 03/15/22 23:48 Review of Systems Review of Systems Narrative: All 12 point systems reviewed with the patient and are negative except otherwise documented. Exam Vital Signs (past 8 hours): - 03/15/22 20:50 03/15/22 20:55 03/15/22 21:20 Temperature 98.1 F 98.1 F Pulse Rate 87 86 Respiratory Rate 26 H 13 Blood Pressure Pulse Oximetry 94 96 Oxygen Delivery Method Room Air 03/15/22 21:05 03/15/22 21:10 03/15/22 21:15 Temperature Pulse Rate 84 88 86 Respiratory Rate 25 H 23 Blood Pressure Pulse Oximetry 96 97 Oxygen Delivery Method 03/15/22 21:20 03/15/22 21:25 03/15/22 21:30 Temperature Pulse Rate 83 83 85 Respiratory Rate 7 L 14 12 Blood Pressure Pulse Oximetry 95 94 95 Oxygen Delivery Method 03/15/22 21:35 03/15/22 21:40 03/15/22 21:45 Temperature Pulse Rate 83 84 84 Respiratory Rate 10 L 10 L 11 L Blood Pressure Pulse Oximetry 95 94 94 Oxygen Delivery Method 03/15/22 21:49 03/15/22 21:49 03/15/22 21:50 Temperature Pulse Rate 85 84 Respiratory Rate 12 10 L Blood Pressure 86/51 L Pulse Oximetry 94 94 Oxygen Delivery Method 03/15/22 21:55 03/15/22 22:00 03/15/22 22:00 Temperature Pulse Rate 86 83 Respiratory Rate 12 12 Blood Pressure 82/45 L Pulse Oximetry 94 96 Oxygen Delivery Method 03/15/22 22:02 03/15/22 22:02 03/15/22 22:05 Temperature Pulse Rate 84 84 Respiratory Rate 12 9 L Blood Pressure 81/44 L Pulse Oximetry 96 96 Oxygen Delivery Method 03/15/22 22:10 03/15/22 22:15 03/15/22 22:15 Temperature Pulse Rate 84 83 Respiratory Rate 13 16 Blood Pressure 97/55 L Pulse Oximetry 97 96 Oxygen Delivery Method 03/15/22 22:20 03/15/22 22:25 03/15/22 22:30 Temperature Pulse Rate 80 81 Respiratory Rate 11 L 12 Blood Pressure 87/51 L Pulse Oximetry 94 96 Oxygen Delivery Method 03/15/22 22:30 03/15/22 22:35 03/15/22 22:40 Temperature Pulse Rate 79 81 81 Respiratory Rate 11 L 13 16 Blood Pressure Pulse Oximetry 96 96 96 Oxygen Delivery Method 03/15/22 22:45 03/15/22 22:50 03/15/22 22:55 Temperature Pulse Rate 80 82 82 Respiratory Rate 11 L 12 12 Blood Pressure Pulse Oximetry 96 94 95 Oxygen Delivery Method 03/15/22 23:00 03/15/22 23:00 03/15/22 23:05 Temperature Pulse Rate 83 85 Respiratory Rate 15 17 Blood Pressure 86/46 L Pulse Oximetry 96 98 Oxygen Delivery Method 03/15/22 23:10 03/15/22 23:15 03/15/22 23:20 Temperature Pulse Rate 89 86 77 Respiratory Rate 16 9 L 8 L Blood Pressure Pulse Oximetry 96 100 96 Oxygen Delivery Method 03/15/22 23:25 03/15/22 23:30 03/15/22 23:35 Temperature Pulse Rate 73 81 82 Respiratory Rate 11 L 17 12 Blood Pressure Pulse Oximetry 96 97 98 Oxygen Delivery Method 03/15/22 23:40 03/15/22 23:45 03/15/22 23:50 Temperature Pulse Rate 86 75 79 Respiratory Rate 12 23 12 Blood Pressure Pulse Oximetry 98 97 96 Oxygen Delivery Method 03/15/22 23:55 03/16/22 00:00 03/16/22 00:00 Temperature Pulse Rate 79 78 Respiratory Rate 13 11 L Blood Pressure 93/57 L Pulse Oximetry 97 95 Oxygen Delivery Method 03/16/22 00:05 03/16/22 00:10 03/16/22 00:15 Temperature Pulse Rate 77 79 80 Respiratory Rate 11 L 11 L 12 Blood Pressure Pulse Oximetry 96 95 95 Oxygen Delivery Method 03/16/22 00:20 03/16/22 01:00 03/16/22 04:00 Temperature Pulse Rate 81 79 Respiratory Rate 10 L 12 Blood Pressure 100/63 Pulse Oximetry 96 Oxygen Delivery Method Room Air 03/16/22 00:25 03/16/22 00:30 03/16/22 00:35 Temperature Pulse Rate 80 82 81 Respiratory Rate 9 L 14 11 L Blood Pressure Pulse Oximetry 97 97 97 Oxygen Delivery Method 03/16/22 00:40 03/16/22 00:45 03/16/22 00:50 Temperature Pulse Rate 81 80 80 Respiratory Rate 13 10 L 11 L Blood Pressure Pulse Oximetry 97 97 97 Oxygen Delivery Method 03/16/22 00:55 03/16/22 01:00 03/16/22 01:00 Temperature Pulse Rate 79 77 Respiratory Rate 11 L 10 L Blood Pressure 100/63 Pulse Oximetry 98 Oxygen Delivery Method 03/16/22 01:05 03/16/22 01:10 03/16/22 01:15 Temperature Pulse Rate 80 79 80 Respiratory Rate 16 10 L 11 L Blood Pressure Pulse Oximetry Oxygen Delivery Method 03/16/22 01:20 03/16/22 01:25 03/16/22 01:30 Temperature Pulse Rate 80 82 85 Respiratory Rate 12 17 13 Blood Pressure Pulse Oximetry Oxygen Delivery Method 03/16/22 01:35 03/16/22 01:40 03/16/22 01:45 Temperature Pulse Rate 84 85 84 Respiratory Rate 18 12 13 Blood Pressure Pulse Oximetry Oxygen Delivery Method 03/16/22 01:50 03/16/22 01:55 03/16/22 02:00 Temperature Pulse Rate 86 90 Respiratory Rate 10 L 19 Blood Pressure 109/80 Pulse Oximetry Oxygen Delivery Method 03/16/22 02:00 03/16/22 02:05 03/16/22 02:10 Temperature Pulse Rate 83 82 81 Respiratory Rate 17 11 L 9 L Blood Pressure Pulse Oximetry Oxygen Delivery Method 03/16/22 02:15 03/16/22 02:20 03/16/22 02:25 Temperature Pulse Rate 82 84 80 Respiratory Rate 17 17 11 L Blood Pressure Pulse Oximetry Oxygen Delivery Method 03/16/22 02:30 03/16/22 02:35 03/16/22 02:40 Temperature Pulse Rate 82 77 76 Respiratory Rate 11 L 9 L 8 L Blood Pressure Pulse Oximetry Oxygen Delivery Method 03/16/22 02:45 03/16/22 02:50 03/16/22 02:55 Temperature Pulse Rate 78 77 79 Respiratory Rate 10 L 11 L 9 L Blood Pressure Pulse Oximetry Oxygen Delivery Method 03/16/22 03:00 03/16/22 03:00 03/16/22 03:05 Temperature Pulse Rate 78 75 Respiratory Rate 9 L 12 Blood Pressure 116/68 Pulse Oximetry Oxygen Delivery Method 03/16/22 03:10 03/16/22 03:15 03/16/22 03:20 Temperature Pulse Rate 78 75 80 Respiratory Rate 10 L 10 L 12 Blood Pressure Pulse Oximetry Oxygen Delivery Method 03/16/22 03:25 03/16/22 03:30 03/16/22 03:35 Temperature Pulse Rate 79 85 98 H Respiratory Rate 11 L 13 26 H Blood Pressure Pulse Oximetry Oxygen Delivery Method 03/16/22 03:40 03/16/22 03:45 03/16/22 03:50 Temperature Pulse Rate 86 93 H 94 H Respiratory Rate 15 23 24 Blood Pressure Pulse Oximetry Oxygen Delivery Method 03/16/22 03:55 03/16/22 04:00 03/16/22 04:00 Temperature Pulse Rate 79 76 Respiratory Rate 13 9 L Blood Pressure 99/58 L Pulse Oximetry Oxygen Delivery Method 03/16/22 04:05 03/16/22 04:10 Temperature Pulse Rate 76 73 Respiratory Rate 12 10 L Blood Pressure Pulse Oximetry Oxygen Delivery Method Oxygen Delivery Method Room Air Oxygen Flow Rate 2 Narrative Exam Narrative: General: Patient is a well-developed, well-nourished in no distress at this time. HEENT: Normocephalic, atraumatic, extraocular muscles intact, oral pharynx is clear and mucous membranes are moist. Neck is supple and symmetric, trachea is midline, no adenopathy, no thyroid enlargement, nontender, no masses palpated. Negative for JVD Chest: Normal AP diameter and contour without kyphoscoliosis, no nasal flaring, retractions, or tachypneic labored Lungs: Auscultation of all lung sheikh are clear without adventitious sounds, wheezes, rhonchi, or rales. Cardio: S1 & S2 with regular rate and rhythm without murmur, rubs, or gallops, no carotid bruit, no cardiac pulsations present. Abdomen: Soft nontender, negative for organomegaly, or masses. Bowel sounds are present in all 4 quadrants without guarding or rebound, no CVA tenderness. Musculoskeletal: Muscle strength and tone are equal within normal limits, no deformity, crepitus, effusions, cyanosis, clubbing or edema present. Full range of motion intact radial and pedal pulses are normal. Skin: Warm dry and intact without rashes, ulcerations or petechiae. Neuro: Alert and orientated x3, strength is +5/5 in all extremities, sensation to touch intact, no gross deficits noted of cranial nerves. Psych: Patient has a well-kept appearance, appropriate affect, mental status attitude thought context and judgment are appropriate for age. Objective Labs Result Diagrams: 03/15/22 14:15 03/15/22 14:15 Labs: Laboratory Results - last 24 hr 03/15/22 03/15/22 03/15/22 14:15 14:15 14:15 WBC 5.6 RBC 4.33 L Hgb 12.8 L Hct 37.1 L MCV 85.8 MCH 29.6 MCHC 34.5 RDW 15.6 H Plt Count 168 Neut % (Auto) 42.1 L Lymph % (Auto) 50.2 H [place] % (Auto) 6.0 Eos % (Auto) 1.2 L Baso % (Auto) 0.5 Neut # (Auto) 2400 Lymph # (Auto) 2800 [place]ff[place] # (Auto) 300 Eos # (Auto) 100 Baso # (Auto) 0 PT 11.8 INR 1.0 APTT 37 H Sodium 147 H Potassium 3.5 Chloride 103 Carbon Dioxide 30 BUN 19 Creatinine 0.69 Estimated GFR > 60 BUN/Creatinine Ratio 27.5 H Glucose 80 Lactate Calcium 8.7 Magnesium Total Bilirubin 0.2 AST 36 ALT 30 Alkaline Phosphatase 75 Ammonia Total Protein 7.9 Albumin 4.3 Globulin 3.6 Albumin/Globulin Ratio 1.2 Procalcitonin < 0.03 TSH Prolactin 14.1 Urine Color Urine Appearance Urine pH Ur Specific [place] Urine Protein Urine Glucose (UA) Urine Ketones Urine Occult Blood Urine Nitrate Urine Bilirubin Urine Urobilinogen Ur Leukocyte Esterase Urine RBC Urine WBC Ur Squamous Epith Cells Urine Bacteria Salicylates < 1.0 U Opiates 300ng/mL cut Ur Oxycodone Screen Urine Methadone Screen Acetaminophen < 10 Ur Barbiturates Screen U Tricyclic Antidepress Ur Phencyclidine Scrn Ur Amphetamines Screen U Methamphetamines Scrn Ur MDMA Scrn (Ecstasy) U Benzodiazepines Scrn Urine Cocaine Screen U Marijuana (THC) Screen Ethyl Alcohol 366 H SARS-CoV-2 (PCR) 03/15/22 03/15/22 03/15/22 14:15 14:15 14:15 WBC RBC Hgb Hct MCV MCH MCHC RDW Plt Count Neut % (Auto) Lymph % (Auto) [place] % (Auto) Eos % (Auto) Baso % (Auto) Neut # (Auto) Lymph # (Auto) [place] # (Auto) Eos # (Auto) Baso # (Auto) PT INR APTT Sodium Potassium Chloride Carbon Dioxide BUN Creatinine Estimated GFR BUN/Creatinine Ratio Glucose Lactate 3.0 H Calcium Magnesium 1.8 Total Bilirubin AST ALT Alkaline Phosphatase Ammonia Total Protein Albumin Globulin Albumin/Globulin Ratio Procalcitonin TSH 2.16 Prolactin Urine Color Urine Appearance Urine pH Ur Specific [place] Urine Protein Urine Glucose (UA) Urine Ketones Urine Occult Blood Urine Nitrate Urine Bilirubin Urine Urobilinogen Ur Leukocyte Esterase Urine RBC Urine WBC Ur Squamous Epith Cells Urine Bacteria Salicylates U Opiates 300ng/mL cut Ur Oxycodone Screen Urine Methadone Screen Acetaminophen Ur Barbiturates Screen U Tricyclic Antidepress Ur Phencyclidine Scrn Ur Amphetamines Screen U Methamphetamines Scrn Ur MDMA Scrn (Ecstasy) U Benzodiazepines Scrn Urine Cocaine Screen U Marijuana (THC) Screen Ethyl Alcohol SARS-CoV-2 (PCR) 03/15/22 03/15/22 03/15/22 15:36 16:28 16:32 WBC RBC Hgb Hct MCV MCH MCHC RDW Plt Count Neut % (Auto) Lymph % (Auto) [place] % (Auto) Eos % (Auto) Baso % (Auto) Neut # (Auto) Lymph # (Auto) [place] # (Auto) Eos # (Auto) Baso # (Auto) PT INR APTT Sodium Potassium Chloride Carbon Dioxide BUN Creatinine Estimated GFR BUN/Creatinine Ratio Glucose Lactate 2.7 H Calcium Magnesium Total Bilirubin AST ALT Alkaline Phosphatase Ammonia 14 Total Protein Albumin Globulin Albumin/Globulin Ratio Procalcitonin TSH Prolactin Urine Color Urine Appearance Urine pH Ur Specific [place] Urine Protein Urine Glucose (UA) Urine Ketones Urine Occult Blood Urine Nitrate Urine Bilirubin Urine Urobilinogen Ur Leukocyte Esterase Urine RBC Urine WBC Ur Squamous Epith Cells Urine Bacteria Salicylates U Opiates 300ng/mL cut Ur Oxycodone Screen Urine Methadone Screen Acetaminophen Ur Barbiturates Screen U Tricyclic Antidepress Ur Phencyclidine Scrn Ur Amphetamines Screen U Methamphetamines Scrn Ur MDMA Scrn (Ecstasy) U Benzodiazepines Scrn Urine Cocaine Screen U Marijuana (THC) Screen Ethyl Alcohol SARS-CoV-2 (PCR) Negative 03/15/22 03/15/22 03/15/22 16:35 16:35 18:18 WBC RBC Hgb Hct MCV MCH MCHC RDW Plt Count Neut % (Auto) Lymph % (Auto) [place] % (Auto) Eos % (Auto) Baso % (Auto) Neut # (Auto) Lymph # (Auto) [place] # (Auto) Eos # (Auto) Baso # (Auto) PT INR APTT Sodium Potassium Chloride Carbon Dioxide BUN Creatinine Estimated GFR BUN/Creatinine Ratio Glucose Lactate 1.9 Calcium Magnesium Total Bilirubin AST ALT Alkaline Phosphatase Ammonia Total Protein Albumin Globulin Albumin/Globulin Ratio Procalcitonin TSH Prolactin Urine Color Yellow Urine Appearance Clear Urine pH 7.0 Ur Specific [place] <=1.005 Urine Protein Negative Urine Glucose (UA) Negative Urine Ketones Negative Urine Occult Blood Negative Urine Nitrate Negative Urine Bilirubin Negative Urine Urobilinogen 0.2 Ur Leukocyte Esterase Negative Urine RBC None seen Urine WBC None seen Ur Squamous Epith Cells 0-1 /hpf Urine Bacteria None seen Salicylates U Opiates 300ng/mL cut Negative Ur Oxycodone Screen Negative Urine Methadone Screen Negative Acetaminophen Ur Barbiturates Screen Negative U Tricyclic Antidepress Negative Ur Phencyclidine Scrn Negative Ur Amphetamines Screen Negative U Methamphetamines Scrn Negative Ur MDMA Scrn (Ecstasy) Negative U Benzodiazepines Scrn Negative Urine Cocaine Screen Negative U Marijuana (THC) Screen Negative Ethyl Alcohol SARS-CoV-2 (PCR) Assessment & Plan Assessment & Plan narrative: Abhinav Herr is a 32 y/o male with a history of depression, epilepsy, alcoholism, found down, unresponsive, initially admitted as a Casper Goodman, with an alcohol level of 366.? Due to patient's repeated history of respiratory arrest requiring intubation, and hypotensive shock patient is placed in the ICU for observation, will downgrade to a medical floor if he remains stable through the night. 1. Alcohol intoxication, found down (downtime unknown), unresponsive, in the setting of chronic alcohol abuse/alcoholism, acute on chronic, present on admission * Long history of alcoholism, repeated admissions to the ICU in acute respiratory failure and hypotensive shock. Last admission 07/26/2021-patient usually leaves Against Medical Advice. * ETOH 366 * Patient admitted under alcohol withdrawal/CIWA protocol * Telemedicine, ordered CBC, CMP, U/a, Mag * Neuro checks as needed, monitor for delirium, seizures and aspiration precautions * Librium 50 mg q.6 hours * Patient requested immediate fully removed. * Cervical Spine CT reveals no evidence of cervical spine disease * Head CT, no intracranial abnormalities * Chest Xray-negative for any cardiopulmonary processes * CTA: negative for any acute abnormalities * CROP SCOUT consult-Regarding alcohol cessation * LR@60cc/hr * If the patient becomes agitated, consider precedex * If stable through the night transfer to Medical Floor in Am * Patient education provided regarding alcohol cessation 2. Tobacco abuse, acute on chronic, present on admission -patient education regarding tobacco cessation -nicotine patch prescribed 3. Epilepsy, reported hx in chart, present on admission * NOt currently on medications * No antiepileptic medications prescribed * Patient placed on seizure precautions 4. Underweight likely secondary to chronic alcohol abuse, acute on chronic, present on admission -as evidence by BMI of 22.8 -dietary consult placed for nutritional education and information Code status:Full Surrogate decision maker: Mother/Sister COVID PCR:Negative DVT/VTE prophylaxis: Lovenox and SCDs Disposition: Patient admitted to the ICU for observation due to the recurrent history of acute respiratory failure and hypotensive cardiac shock secondary to alcohol intoxication. Expected length of stay less than 2 midnights. I have utilized all available immediate resources to obtain, update, or review the patient's current medications. I confirmed that the patient's advanced care plan is present, Code status is documented and/or surrogate decision maker is listed in the patient's medical record. Time Spent With Patient Critical Care time: I spent a total of [] minutes of critical care time on this patient's care today; this time is exclusive of procedural time. Quality VTE Deep Vein Thrombosis/Pulmonary Embolism Present on Admission: No
--- NOTE | 2022-03-16 05:14 | PC.NURSE ---
Addendum entered by Lisseth Hermosillo R.N. 03/16/22 06:17: At 0530, patient is awake, oriented x3, but not to recent events, does not know how he came to the hospital. He is being calm, politely declined scheduled Librium, given diet soda, ambulated to BR steady on feet, denies pain to Lt ankle. 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 IV sites removed, dressed himself, ambulated with PCT to Exit, bags of belongings with him. Original Note: Admit Note-Patient brought to ICU room 231 at 2030, drowsy but able to rouse, follow some directions, aware of place, date, and situation. SR, HR 70s-90s, Temp 97.7, SpO2 >96% on RA, CTA. BPs low but stable, asymptomatic, see vital trends. He started pulling on Isabel catheter, saying take it out, take it out This Rn removed Isabel, 550ml clear yellow urine.
== END 2022-03-16 05:50 | disposition home or self-care (01) ==
LOC: ED 20:01 → AC 20:03 → ICU 21:10
PROVIDERS: Emergency Medicine; Admitting Provider Nurse Practitioner Family; Emergency Provider Emergency Medicine; Visit Provider Nurse Practitioner Family
DX: R40.4 Transient alteration of awareness (principal); F10.229 Alcohol dependence with intoxication, unspecified; Y90.8 Blood alcohol level of 240 mg/100 ml or more; G40.909 Epilepsy, unspecified, not intractable, without status epilepticus; R63.6 Underweight; Z68.22 Body mass index [BMI] 22.0-22.9, adult; F17.210 Nicotine dependence, cigarettes, uncomplicated; Z20.822 Contact with and (suspected) exposure to COVID-19; Z53.29 Procedure and treatment not carried out because of patient's decision for other reasons
CPT/HCPCS: 36415; 70450; 71045; 71275; 72125; 73610; 74174; 80053; 80305; 80320; 80329; 81001; 82140; 82962; 83605; 83735; 84145; 84146; 84443; 85025; 85610; 85730; 87040; 87086; 87635; 87797; 93005; 96361; 96374; 99281; 99285; 99291; 99292; C9803; G0378; G0480; J2310; Q9967

== ENCOUNTER 2022-03-16 08:52 | Emergency (ER) | payer OTHER, MEDICAID, SELFPAY ==
[2021-07-26 09:14] VITALS: PULSE 51; RESP 16; O2SAT 98
[2021-07-26 10:17] VITALS: RESP 15
[2022-03-15 21:17] VITALS: BMI 22.7
[2022-03-16 08:59] VITALS: BP 123/83; PULSE 83; RESP 17; TEMP 36.6; O2SAT 98
--- NOTE | 2022-03-16 09:08 | ED_ITS ---
HPI - Alcohol General Chief Complaint: Toxicology Problem Stated Complaint: alcohol detox Time Seen by Provider: 03/16/22 08:58 Source: patient Mode of arrival: Ambulatory History of Present Illness HPI narrative: Patient 32-year-old male well known to myself in this facility was here last night for alcohol intoxication admitted left Against Medical Advice found sleeping in the waiting room returns to the ED today wanting detox. I have explained to him that we help him as long as he is willing to stay. He has no complaints he denies any suicidal or homicidal ideations. He has been sober for blood month. Related Data Allergies Allergy/AdvReac Type Severity Reaction Status Date / Time shrimp [SHRIMP] Allergy Severe THROAT Verified 03/16/22 09:02 SWELLING/HIVES diazepam [From VALIUM] Allergy Intermediate LEG Verified 03/16/22 09:02 SWELLING haloperidol [From HALDOL] Allergy Unknown DYSTONIA Verified 03/16/22 09:02 naproxen [NAPROXEN] AdvReac Mild NAUSEA/GI Verified 03/16/22 09:02 DISTRESS Review of Systems Review of Systems ROS Unobtainable: All systems reviewed & are unremarkable except as noted in HPI and below Patient History Medical History Alcoholism Depression Eating disorder Epilepsy Low back pain Surgical History History of ankle surgery Family History Grandfather Type 2 diabetes mellitus without complication, unspecified custodial insulin use status Grandmother Type 2 diabetes mellitus without complication, unspecified custodial insulin use status Mother Uncomplicated asthma, unspecified asthma severity Sister Uncomplicated asthma, unspecified asthma severity Unknown No problems noted. Social History household members: spouse, family and children Smoking Status: Current every day smoker alcohol intake: current Smoking Status: Current every day smoker alcohol intake frequency: 3 or more drinks per day Alcohol type: other Substance Use Type: does not use Exam Initial Vital Signs Initial Vital Signs: Vital Signs Temperature 97.9 F 03/16/22 08:59 Pulse Rate 83 03/16/22 08:59 Respiratory Rate 17 03/16/22 08:59 Blood Pressure 123/83 03/16/22 08:59 Pulse Oximetry 98 03/16/22 08:59 Oxygen Delivery Method 03/16/22 08:59 GENERAL: Alert 32-year-old male CARDIOVASCULAR: peripheral pulses in tact, cap refill <2 sec RESPIRATORY: No respiratory distress, speaks in full sentences without difficulty EXTREMITIES: Normal range of motion, no clubbing or edema. Neurovascularly intact NEUROLOGICAL: Cranial nerves II through XII grossly intact. Normal gait and speech. SKIN: Warm, dry, no petechiae, no rashes or lesions. Course Orders Ordered: ED Orders 03/16/22 09:01 CBC Auto Diff [Complete Blood Count AUTO DIFF] Stat CMP [Comprehensive Metabolic Panel] Stat ETOH [Ethanol (ETOH)] Stat Lipase Stat TSH [Thyroid Stimulating Hormone] Stat UA Complete [Urinalysis and Microscopic] Stat Urine Drug Screen, Rapid Stat 03/16/22 09:02 Consult to HOSPICE ADMITTING CLERK - [employer] Stat Vital Signs Vital signs: Vital Signs - 8 hr 03/16/22 08:59 Temperature 97.9 F Pulse Rate 83 Respiratory Rate 17 Blood Pressure 123/83 Pulse Oximetry 98 Oxygen Delivery Method Room Air MDM - Alcohol MDM Narrative Medical decision making narrative: Patient initially was agreeable for detox however he left before blood was drawn all or any discharge paperwork or anyone could talk to him. Discharge Plan Departure Patient Disposition: Left Against Medical Advice Clinical Impression: Left against medical advice, Alcohol abuse Stand Alone Forms: Against Medical Advice
== END 2022-03-16 09:08 | disposition left against medical advice (07) ==
PROVIDERS: Emergency Provider Emergency Medicine
CPT/HCPCS: 99281

== ENCOUNTER 2022-03-30 18:50 | Emergency (ER) | payer OTHER, MEDICAID, SELFPAY ==
[2021-07-26 09:14] VITALS: PULSE 51; RESP 16; O2SAT 98
[2021-07-26 10:17] VITALS: RESP 15
[2022-03-15 21:17] VITALS: BMI 22.7
[2022-03-30] VITALS (16 sets, daily range): BP systolic 104–106; BP diastolic 55–59; PULSE 78–95; RESP 14–27; TEMP 36.2; O2SAT 46–100
--- NOTE | 2022-03-30 19:22 | PC.NURSE ---
1924 Patient sleeping on right side when this RN enters room. He opens his eyes to verbal stimulation and rolls over. Patient declines to answer questions but shows gag reflex. When this RN and MD attempt to roll patient to listen to lung sounds, he uses strength to resist roll. Patient on continuous cardiac care nurse, BP cuff and O2 probe. Seizure precautions in place.
--- NOTE | 2022-03-30 19:32 | DI.RAD.S_ITS ---
PROCEDURE: XR CHEST 1V INDICATIONS: soa TECHNIQUE: One view of the chest was acquired. COMPARISON: [facility], CR, XR CHEST 1V, 03/15/2022, 14:06. FINDINGS: Surgical changes and devices: None. Lungs and pleura: There is mild rotation slightly limiting evaluation. No focal consolidation. No pleural effusions or pneumothorax. Mediastinum: Mediastinal contours appear within normal limits given rotation. Heart size is normal. Bones and chest wall: No suspicious bony lesions. Overlying soft tissues appear unremarkable. IMPRESSION: 1. No definite evidence of pneumonia. Dictated by: Silvio Jones M.D. on 03/30/2022 at 21:38 Approved by: Silvio Jones M.D. on 03/30/2022 at 21:40
--- NOTE | 2022-03-30 19:32 | DI.CT.S_ITS ---
PROCEDURE: CT HEAD/BRAIN WO CON INDICATIONS: Altered mental status TECHNIQUE: Noncontrast 4.5 mm thick angled axial sections acquired from the foramen magnum to the vertex, with coronal and sagittal reformats. For radiation dose reduction, the following was used: automated exposure control, adjustment of mA and/or kV according to patient size. COMPARISON: [facility], CT, CT HEAD/BRAIN WO CON, 03/15/2022, 14:19. FINDINGS: Image quality: Evaluation limited by patient's limited ability to tolerate positioning. CSF spaces: Basal cisterns are patent. No extra-axial fluid collections. Ventricles are normal in size and shape. Brain: No definite intracranial hemorrhage, mass, or mass effect. Dye-white matter interface appears preserved. Skull and face: Calvarium and visualized facial bones are intact, without suspicious lesions. Sinuses: Visualized sinuses and mastoids are clear. IMPRESSION: 1. Limited study demonstrates no definite acute intracranial abnormality. Dictated by: Silvio Jones M.D. on 03/30/2022 at 22:06 Approved by: Silvio Jones M.D. on 03/30/2022 at 22:08
--- NOTE | 2022-03-30 19:32 | DI.CT.S_ITS ---
PROCEDURE: CT CERVICAL SPINE WO CON INDICATIONS: fall/unresponsive TECHNIQUE: Noncontrast 3 mm thick sections acquired from the skull base to the T4 level. Sagittal and coronal reformats were then constructed. For radiation dose reduction, the following was used: automated exposure control, adjustment of mA and/or kV according to patient size. COMPARISON: [facility], CT, CT CERVICAL SPINE WO CON, 03/15/2022, 18:23. FINDINGS: Image quality: Limited study due to patient's inability to tolerate positioning. Motion artifact is also present limiting evaluation. Bones: No definite fracture or subluxation. Visualized superior ribs are intact. Soft tissues: Prevertebral soft tissues are normal in thickness. No paravertebral hematomas. No apical pneumothoraces. IMPRESSION: 1. Limited study demonstrates no definite fracture or subluxation. Dictated by: Silvio Jones M.D. on 03/30/2022 at 22:08 Approved by: Silvio Jones M.D. on 03/30/2022 at 22:10
--- NOTE | 2022-03-30 19:35 | ED_ITS ---
HPI - General Adult <Krunal Dunn MD - Last Filed: 04/04/22 18:10> General Chief complaint: Toxicology Problem Stated complaint: unresponsive in street Time Seen by Provider: 03/30/22 19:25 Source: patient and EMS Mode of arrival: EMS History of Present Illness HPI narrative: Patient brought in by movements. Patient found unresponsive on the street. No known injury or fall whenever patient is known to have history of alcohol abuse/dependence. Was here March 16 for alcohol intoxication and left against medical advice after admission. Patient was recently admitted to [facility] last month for trauma sustaining lower extremity injury/fracture. Patient does have a walking boot in place since being discharged from that facility. Related Data Home Medications Medication Instructions Recorded Confirmed buspirone 15 mg tablet 15 mg PO BID PRN Anxiety 03/31/22 03/31/22 clonidine HCl 0.1 mg tablet 0.1 mg PO BEDTIME 03/31/22 03/31/22 lamotrigine 25 mg tablet 25 mg PO BID 03/31/22 03/31/22 pregabalin 75 mg capsule 75 mg PO BID 03/31/22 03/31/22 sertraline 100 mg tablet 150 mg PO DAILY 03/31/22 03/31/22 Allergies Allergy/AdvReac Type Severity Reaction Status Date / Time shrimp [SHRIMP] Allergy Severe THROAT Verified 04/01/22 08:44 SWELLING/HIVES diazepam [From VALIUM] Allergy Intermediate LEG Verified 04/01/22 08:44 SWELLING haloperidol [From HALDOL] Allergy Unknown DYSTONIA Verified 04/01/22 08:44 naproxen [NAPROXEN] AdvReac Mild NAUSEA/GI Verified 04/01/22 08:44 DISTRESS Review of Systems <Krunal Dunn MD - Last Filed: 04/04/22 18:10> Review of Systems ROS Unobtainable: Unobtainable due to mental status/LOC Patient History <Krunal Dunn MD - Last Filed: 04/04/22 18:10> Medical History Alcoholism Depression Eating disorder Epilepsy Low back pain Surgical History History of ankle surgery Family History Grandfather Type 2 diabetes mellitus without complication, unspecified retirement insulin use status Grandmother Type 2 diabetes mellitus without complication, 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 Social History household members: spouse, family and children Smoking Status: Current every day smoker alcohol intake: current Smoking Status: Current every day smoker alcohol intake frequency: 3 or more drinks per day Alcohol type: other Substance Use Type: does not use Exam <Krunal Dunn MD - Last Filed: 04/04/22 18:10> Narrative Exam Narrative: GENERAL: in no distress, not toxic not dyspneic HEAD: Normocephalic. No crepitus or step-off of the scalp/skull EYES: Pupils equal round No scleral icterus. ENT: Mucous membranes moist. NECK: Trachea midline. No midline step-off or skin injury bruising abrasion seen on the cervical thoracic and lumbar spine. The shirt has been removed. CARDIOVASCULAR: Regular rate and rhythm without murmurs RESPIRATORY: Clear to auscultation. Breath sounds equal bilaterally. No wheezes, rales, or rhonchi. GASTROINTESTINAL: Abdomen soft, non-tender EXTREMITIES: No gross deformities. BACK: No flank tenderness. NEURO: Patient does respond to painful stimuli all 4 limbs. Does move limbs spontaneously as well. SKIN: Warm and dry, chest abdomen and entire back skin visualized. PSYCH: Not combative Initial Vital Signs Initial Vital Signs: Vital Signs Pulse Oximetry 46 L 03/30/22 18:56 <Cris Sarkar MD - Last Filed: 03/31/22 09:01> Initial Vital Signs Initial Vital Signs: Vital Signs Pulse Oximetry 46 L 03/30/22 18:56 Course <Krunal Dunn MD - Last Filed: 04/04/22 18:10> Course Course Narrative: 10:52 p.m.. Patient is anxious. Patient is on CIWA protocol. Patient states has had Ativan in the past without any side effects. 2 mg IV Ativan has been ordered. March 31, 2022 at 12:16 a.m.. Soft restraint orders were placed however patient did start becoming more cooperative. They were not placed on. Patient required immense amount of redirecting to stay in his bed for safety concerns. He was also reaching defined his alcohol bottles which have been secured. Pulse ox is on patient. 100% room air March 31, 2022 at 7:00 a.m.. Sign out to Dr. Ashton, soft restraints never placed on patient. Patient has been more relaxed and less anxious with phenobarbital. Patient denies any SI or HI. Patient had earlier expressed interest in detox or rehab. At this time he is not expressing those same desires. Patient needed phenobarbital to help for his anxiety and agitation and for his safety as to not get out of bed, may fall and hurt himself. However at this time patient is more alert than he was on arrival by EMS Orders Ordered: Discontinued Medications Sodium Chloride (Normal Saline 0.9%) 1,000 mls @ 150 mls/hr IV CONT HOLGER Last Infusion: 03/31/22 04:15 Dose: 0 mls/hr Documented By: Admin: 03/30/22 21:08 Dose: 150 mls/hr Documented By: LINDA Lorazepam (Lorazepam 2 Mg/Ml Inj) 2 mg IV NOW ONE Stop: 03/30/22 22:52 Last Admin: 03/30/22 22:55 Dose: 2 mg Documented By: LINDA Lorazepam (Lorazepam 2 Mg/Ml Inj) 2 mg IV NOW ONE Stop: 03/30/22 23:16 Last Admin: 03/30/22 23:23 Dose: 2 mg Documented By: LINDA Lorazepam (Lorazepam 0.5 Mg Tablet) 2 mg PO NOW ONE Stop: 03/30/22 23:16 Last Admin: 03/30/22 23:23 Dose: 2 mg Documented By: LINDA Phenobarbital (Phenobarbital 65 Mg/Ml Vial) 65 mg IV NOW ONE Stop: 03/30/22 23:57 Last Admin: 03/31/22 00:01 Dose: 65 mg Documented By: DAISY Phenobarbital (Phenobarbital 65 Mg/Ml Vial) 30 mg IV NOW ONE Stop: 03/31/22 04:30 Last Admin: 03/31/22 04:34 Dose: 30 mg Documented By: LINDA Phenobarbital (Phenobarbital 65 Mg/Ml Vial) 30 mg IV NOW ONE Stop: 03/31/22 06:33 Last Admin: 03/31/22 06:40 Dose: 30 mg Documented By: LINDA Reevaluation(s) Reevaluation #1: Patient is awake. I spoke with patient regarding is visit here. He denies any fall or any injury. Denies any SI or HI. Denies any seizures that he recollects today. He does wish for detox/rehab. He does desire to talk to social work in the morning. Time: 22:31 Reevaluation #2: Patient moved to room 6. Eye view of nurse's and nurse's station. Patient has high tolerance to Ativan given history of significant alcohol consumption daily. Patient has been awake and concerned about his alcohol bottles. They have been secured. He has numerous times tried to get up to get to his alcohol supply. At this time, phenobarbital will be tried low-dose to help for agitation Time: 23:58 Reevaluation #3: Patient much more awake with clear speech. However still concerned about his alcohol beverages and bottles. At this time would be prudent to observe patient for safety measures and fall precautions. Time: 06:36 Vital Signs Vital signs: Vital Signs - 8 hr 03/31/22 01:01 03/31/22 02:17 03/31/22 04:49 Pulse Rate 94 H 98 H 85 Respiratory Rate 16 14 16 Blood Pressure 121/74 121/74 119/80 Pulse Oximetry 100 97 100 Oxygen Delivery Method Room Air Room Air Room Air 03/31/22 06:55 03/31/22 00:37 03/31/22 01:00 Pulse Rate 87 91 H Respiratory Rate 17 20 Blood Pressure 112/64 Pulse Oximetry 78 L Oxygen Delivery Method 03/31/22 01:30 03/31/22 02:00 03/31/22 02:30 Pulse Rate 97 H 100 H 97 H Respiratory Rate 20 20 19 Blood Pressure Pulse Oximetry Oxygen Delivery Method 03/31/22 03:00 03/31/22 03:30 03/31/22 04:00 Pulse Rate 87 93 H 93 H Respiratory Rate 25 H 19 19 Blood Pressure Pulse Oximetry Oxygen Delivery Method 03/31/22 04:30 03/31/22 04:46 03/31/22 04:46 Pulse Rate 116 H 97 H Respiratory Rate 36 H 29 H Blood Pressure 119/80 Pulse Oximetry 100 Oxygen Delivery Method 03/31/22 05:00 03/31/22 05:30 03/31/22 06:00 Pulse Rate 81 88 93 H Respiratory Rate 9 L 0 L Blood Pressure Pulse Oximetry Oxygen Delivery Method 03/31/22 06:30 Pulse Rate 122 H Respiratory Rate Blood Pressure Pulse Oximetry Oxygen Delivery Method <Cris Sarkar MD - Last Filed: 03/31/22 09:01> Orders Ordered: Discontinued Medications Sodium Chloride (Normal Saline 0.9%) 1,000 mls @ 150 mls/hr IV CONT HOLGER Last Infusion: 03/31/22 04:15 Dose: 0 mls/hr Documented By: Admin: 03/30/22 21:08 Dose: 150 mls/hr Documented By: LINDA Lorazepam (Lorazepam 2 Mg/Ml Inj) 2 mg IV NOW ONE Stop: 03/30/22 22:52 Last Admin: 03/30/22 22:55 Dose: 2 mg Documented By: LINDA Lorazepam (Lorazepam 2 Mg/Ml Inj) 2 mg IV NOW ONE Stop: 03/30/22 23:16 Last Admin: 03/30/22 23:23 Dose: 2 mg Documented By: LINDA Lorazepam (Lorazepam 0.5 Mg Tablet) 2 mg PO NOW ONE Stop: 03/30/22 23:16 Last Admin: 03/30/22 23:23 Dose: 2 mg Documented By: LINDA Phenobarbital (Phenobarbital 65 Mg/Ml Vial) 65 mg IV NOW ONE Stop: 03/30/22 23:57 Last Admin: 03/31/22 00:01 Dose: 65 mg Documented By: DAISY Phenobarbital (Phenobarbital 65 Mg/Ml Vial) 30 mg IV NOW ONE Stop: 03/31/22 04:30 Last Admin: 03/31/22 04:34 Dose: 30 mg Documented By: LINDA Phenobarbital (Phenobarbital 65 Mg/Ml Vial) 30 mg IV NOW ONE Stop: 03/31/22 06:33 Last Admin: 03/31/22 06:40 Dose: 30 mg Documented By: LINDA Vital Signs Vital signs: Vital Signs - 8 hr 03/31/22 01:01 03/31/22 02:17 03/31/22 04:49 Pulse Rate 94 H 98 H 85 Respiratory Rate 16 14 16 Blood Pressure 121/74 121/74 119/80 Pulse Oximetry 100 97 100 Oxygen Delivery Method Room Air Room Air Room Air 03/31/22 06:55 03/31/22 00:37 03/31/22 01:00 Pulse Rate 87 91 H Respiratory Rate 17 20 Blood Pressure 112/64 Pulse Oximetry 78 L Oxygen Delivery Method 03/31/22 01:30 03/31/22 02:00 03/31/22 02:30 Pulse Rate 97 H 100 H 97 H Respiratory Rate 20 20 19 Blood Pressure Pulse Oximetry Oxygen Delivery Method 03/31/22 03:00 03/31/22 03:30 03/31/22 04:00 Pulse Rate 87 93 H 93 H Respiratory Rate 25 H 19 19 Blood Pressure Pulse Oximetry Oxygen Delivery Method 03/31/22 04:30 03/31/22 04:46 03/31/22 04:46 Pulse Rate 116 H 97 H Respiratory Rate 36 H 29 H Blood Pressure 119/80 Pulse Oximetry 100 Oxygen Delivery Method 03/31/22 05:00 03/31/22 05:30 03/31/22 06:00 Pulse Rate 81 88 93 H Respiratory Rate 9 L 0 L Blood Pressure Pulse Oximetry Oxygen Delivery Method 03/31/22 06:30 Pulse Rate 122 H Respiratory Rate Blood Pressure Pulse Oximetry Oxygen Delivery Method Medical Decision Making <Krunal Dunn MD - Last Filed: 04/04/22 18:10> Differential Diagnosis Differential Diagnosis: Alcohol/substance abuse/trauma Lab Data Result diagrams: 03/30/22 18:55 03/30/22 18:55 Labs: Lab Results 03/30/22 03/30/22 03/30/22 Range/Units 18:55 18:55 23:27 WBC 3.9 L (4.5-11.0) X10^3/uL RBC 4.06 L (4.5-5.9) X10^6/uL Hgb 12.3 L (13.5-17.5) g/dL Hct 36.4 L (41-53) % MCV 89.6 (80-100) fL MCH 30.3 (26-34) PG MCHC 33.8 (30-36) % RDW 16.4 H (11.6-14.8) % Plt Count 158 (150-400) X10^3/uL Neut % (Auto) 57.9 (50-75) % Lymph % (Auto) 35.2 (25-40) % Sandoval % (Auto) 5.2 (3-14) % Eos % (Auto) 1.2 L (2-4) % Baso % (Auto) 0.5 (0-2) % Neut # (Auto) 2300 (9766-5714) /uL Lymph # (Auto) 1400 (0931-7356) /uL Sandoval # (Auto) 200 (0-900) /uL Eos # (Auto) 0 (0-450) /uL Baso # (Auto) 0 (0-100) /uL Sodium 150 H (137-145) mmol/L Potassium 3.7 (3.4-5.1) mmol/L Chloride 111 H (98-107) mmol/L Carbon Dioxide 29 (22-32) mmol/L BUN 10 (9-20) mg/dL Creatinine 0.56 L (0.66-1.25) mg/dL Estimated GFR > 60 (>60) mL/min BUN/Creatinine Ratio 17.9 (6-22) Glucose 93 (70-100) mg/dL Calcium 8.4 (8.4-10.2) mg/dL Total Bilirubin 0.2 (0.2-1.3) mg/dL AST 45 (17-59) IU/L ALT 48 (<50) IU/L Alkaline Phosphatase 70 (38-126) U/L Total Protein 7.4 (6.3-8.2) g/dL Albumin 4.1 (3.5-5.0) g/dL Globulin 3.3 (1.7-4.1) g/dL Albumin/Globulin Ratio 1.2 (1.0-2.8) Salicylates < 1.0 (<20) mg/dL Acetaminophen < 10 (10-30) ug/mL Ethyl Alcohol 388 H 277 H ( - 10) mg/dL Imaging Data CT scan - head: Radiologist's Impression: [address] [address] [address] Scan Report Signed Patient: Abhinav Herr MR#: [id number] : 1990 Acct:[id number] Age/Sex: 32 / M Date of Service: 03/30/22 Loc: ED Accession Number: [id number] ?? Procedure: CT head/brain wo con Ordering Provider: Krunal Dunn MD PROCEDURE:? CT HEAD/BRAIN WO CON ? INDICATIONS:? Altered mental status ? TECHNIQUE:? Noncontrast 4.5 mm thick angled axial sections acquired from the foramen magnum to the vertex, with coronal and sagittal reformats.? For radiation dose reduction, the following was used:? automated exposure control, adjustment of mA and/or kV according to patient size.? ? COMPARISON:? [facility], CT, CT HEAD/BRAIN WO CON, 03/15/2022, 14:19. ? FINDINGS:? Image quality:? Evaluation limited by patient's limited ability to tolerate positioning. ? CSF spaces:? Basal cisterns are patent.? No extra-axial fluid collections.? Ventricles are normal in size and shape.? ? Brain:? No definite intracranial hemorrhage, mass, or mass effect.? Dey-white matter interface appears preserved.? ? Skull and face:? Calvarium and visualized facial bones are intact, without suspicious lesions.? ? Sinuses:? Visualized sinuses and mastoids are clear.? ? IMPRESSION:? ? 1. Limited study demonstrates no definite acute intracranial abnormality. ? ? Dictated by: Silvio Jones M.D. on 03/30/2022 at 22:06 ? ? Approved by: Silvio Jones M.D. on 03/30/2022 at 22:08 ? CT - cervical spine: Radiologist's Impression: [place] [address] CT Scan Report Signed Patient: Abhinav Herr MR#: [id number] : 1990 Acct:[id number] Age/Sex: 32 / M Date of Service: 03/30/22 Loc: ED Accession Number: [id number] ?? Procedure: CT cervical spine wo con Ordering Provider: Krunal Dunn MD PROCEDURE:? CT CERVICAL SPINE WO CON ? INDICATIONS:? fall/unresponsive ? TECHNIQUE:? Noncontrast 3 mm thick sections acquired from the skull base to the T4 level.? Sagittal and coronal reformats were then constructed.? For radiation dose reduction, the following was used:? automated exposure control, adjustment of mA and/or kV according to patient size.? ? COMPARISON:? [facility], CT, CT CERVICAL SPINE WO CON, 03/15/2022, 18:23. ? FINDINGS:? Image quality:? Limited study due to patient's inability to tolerate positioning.? Motion artifact is also present limiting evaluation. ? Bones:? No definite fracture or subluxation.? Visualized superior ribs are intact.? ? Soft tissues:? Prevertebral soft tissues are normal in thickness.? No paravertebral hematomas.? No apical pneumothoraces.? ? ? IMPRESSION:? ? 1. Limited study demonstrates no definite fracture or subluxation. ? ? ? Dictated by: Silvio Jones M.D. on 03/30/2022 at 22:08 ? ? Approved by: Silvio Jones M.D. on 03/30/2022 at 22:10 ? Chest x-ray: Radiologist's Impression: [address] [address] XRay Report Signed Patient: Abhinav Herr MR#: [id number] : 1990 Acct:[id number] Age/Sex: 32 / M Date of Service: 03/30/22 Loc: ED Accession Number: [id number] ?? Procedure: XR chest 1V Ordering Provider: Krunal Dunn MD PROCEDURE:? XR CHEST 1V ? INDICATIONS:? soa ? TECHNIQUE:? One view of the chest was acquired.? ? COMPARISON:? [facility], CR, XR CHEST 1V, 03/15/2022, 14:06. ? FINDINGS:? ? Surgical changes and devices:? None.? ? Lungs and pleura:? There is mild rotation slightly limiting evaluation.? No focal consolidation.? No pleural effusions or pneumothorax.? ? Mediastinum:? Mediastinal contours appear within normal limits given rotation.? Heart size is normal.? ? Bones and chest wall:? No suspicious bony lesions.? Overlying soft tissues appear unremarkable.? ? IMPRESSION:? ? 1. No definite evidence of pneumonia. ? ? Dictated by: Silvio Jones M.D. on 03/30/2022 at 21:38 ? ? Approved by: Silvio Jones M.D. on 03/30/2022 at 21:40 ? <Cris Sarkar MD - Last Filed: 03/31/22 09:01> Lab Data Labs: Lab Results 03/30/22 03/30/22 03/30/22 Range/Units 18:55 18:55 23:27 WBC 3.9 L (4.5-11.0) X10^3/uL RBC 4.06 L (4.5-5.9) X10^6/uL Hgb 12.3 L (13.5-17.5) g/dL Hct 36.4 L (41-53) % MCV 89.6 (80-100) fL MCH 30.3 (26-34) PG MCHC 33.8 (30-36) % RDW 16.4 H (11.6-14.8) % Plt Count 158 (150-400) X10^3/uL Neut % (Auto) 57.9 (50-75) % Lymph % (Auto) 35.2 (25-40) % Sandoval % (Auto) 5.2 (3-14) % Eos % (Auto) 1.2 L (2-4) % Baso % (Auto) 0.5 (0-2) % Neut # (Auto) 2300 (1547-0844) /uL Lymph # (Auto) 1400 (5899-4525) /uL Sandoval # (Auto) 200 (0-900) /uL Eos # (Auto) 0 (0-450) /uL Baso # (Auto) 0 (0-100) /uL Sodium 150 H (137-145) mmol/L Potassium 3.7 (3.4-5.1) mmol/L Chloride 111 H (98-107) mmol/L Carbon Dioxide 29 (22-32) mmol/L BUN 10 (9-20) mg/dL Creatinine 0.56 L (0.66-1.25) mg/dL Estimated GFR > 60 (>60) mL/min BUN/Creatinine Ratio 17.9 (6-22) Glucose 93 (70-100) mg/dL Calcium 8.4 (8.4-10.2) mg/dL Total Bilirubin 0.2 (0.2-1.3) mg/dL AST 45 (17-59) IU/L ALT 48 (<50) IU/L Alkaline Phosphatase 70 (38-126) U/L Total Protein 7.4 (6.3-8.2) g/dL Albumin 4.1 (3.5-5.0) g/dL Globulin 3.3 (1.7-4.1) g/dL Albumin/Globulin Ratio 1.2 (1.0-2.8) Salicylates < 1.0 (<20) mg/dL Acetaminophen < 10 (10-30) ug/mL Ethyl Alcohol 388 H 277 H ( - 10) mg/dL MDM Narrative Medical decision making narrative: 32-year-old gentleman history of severe alcohol use disorder. Drinks to the point of apnea multiple times has been intubated multiple times to the point he has tracheal stenosis and reportedly needs an ET tube less than 5, we have been asked to try intubating him at all costs due to this. Use drinking heavily during the day yesterday was actually trust passed from the hospital and the waiting room as he was intoxicated, belligerent and avoiding on the couch is in chairs in the waiting room. Continued to drink over the course the day and was found completely incapacitated lying on the street brought in last night. Was given phenobarbital. Slept the majority of the evening wakes this morning and states that he would like to go home. He is not interested in detox, social work help or alternative solutions. Apparently a significant other or family member last night was quite interested in pursuing some type of detained meant. At some point he may be a ?Rashad's law? candidate but at this point he is awake, physically sober, not showing signs of acute withdrawal, cognitively appropriate and cooperative. He has a steady gait and will be discharged home. He did have a large bottle of vodka that was with him last night the we gently removed from him so that he could continue drinking in the room all night. I a.m. not going to be returning that bottle of vodka to him this morning. He is safe for discharge Discharge Plan Departure Patient Disposition: Home Clinical Impression: Alcohol use disorder, severe, dependence, Alcohol intoxication Instructions: DI for Alcohol Use Disorder Activity Restrictions/Additional Instructions: Your alcohol use disorder continues to progress. You are quite literally, drinking yourself to . When you decide that you want help, we are available for you. Prescriptions: No Action clonidine HCl 0.1 mg tablet 0.1 mg PO BEDTIME sertraline 100 mg tablet 150 mg PO DAILY lamotrigine 25 mg tablet 25 mg PO BID buspirone 15 mg tablet 15 mg PO BID PRN (Reason: Anxiety) pregabalin 75 mg capsule 75 mg PO BID Visit Report Forms: Patient Portal/API
[2022-03-30 19:42] LABS: Add Manual Diff / Slide Review NO; Basophils Absolute Auto 0 /uL (0-100); Basophils Percent Auto 0.5 % (0-2); Eosinophils Absolute Auto 0 /uL (0-450); Eosinophils Percent Auto 1.2 % (2-4); Hematocrit 36.4 % (41-53); Hemoglobin 12.3 g/dL (13.5-17.5); Lymphocytes Absolute Auto 1400 /uL (1100-4500); Lymphocytes Percent Auto 35.2 % (25-40); Mean Corpuscular HGB Conc 33.8 % (30-36); Mean Corpuscular Hemoglobin 30.3 PG (26-34); Mean Corpuscular Volume 89.6 fL (80-100); Monocytes Absolute Auto 200 /uL (0-900); Monocytes Percent Auto 5.2 % (3-14); Neutrophils Absolute Auto 2300 /uL (1500-7000); Neutrophils Percent Auto 57.9 % (50-75); Platelet Count 158 X10^3/uL (150-400); Red Blood Cell Count 4.06 X10^6/uL (4.5-5.9); Red Cell Distribution Width 16.4 % (11.6-14.8); White Blood Cell Count 3.9 X10^3/uL (4.5-11.0)
[2022-03-30 19:47] LABS: Acetaminophen < 10 ug/mL (10-30); Alanine Aminotransferase 48 IU/L (<50); Albumin 4.1 g/dL (3.5-5.0); Albumin Globulin Ratio 1.2 (1.0-2.8); Alkaline Phosphatase 70 U/L (38-126); Aspartate Aminotransferase 45 IU/L (17-59); BUN Creatinine Ratio 17.9 (6-22); Bilirubin Total 0.2 mg/dL (0.2-1.3); Blood Urea Nitrogen 10 mg/dL (9-20); Calcium 8.4 mg/dL (8.4-10.2); Carbon Dioxide 29 mmol/L (22-32); Chloride 111 mmol/L (98-107); Estimated Glomerular Filt Rate > 60 mL/min (>60); Globulin 3.3 g/dL (1.7-4.1); Glucose 93 mg/dL (70-100); Potassium 3.7 mmol/L (3.4-5.1); Salicylate < 1.0 mg/dL (<20); Sodium 150 mmol/L (137-145); Total Protein 7.4 g/dL (6.3-8.2)
[2022-03-30 19:55] LABS: Ethanol (ETOH) 388 mg/dL; HEMOLYSIS 18 (0-50)
[2022-03-30] MEDS: SODIUM CHLORIDE 0.9% 1,000 ML 150 ML IV (21:08)
--- NOTE | 2022-03-30 22:19 | PC.NURSE ---
2216 Patient alert and answering questions appropriatly. He states he does not remember events prior to arrival to ED and states he has been drinking vodka today. Patient asks for food- given and is tolerating well. notified.
[2022-03-30] MEDS: LORazepam 2 MG/ML INJ IV ×2 (22:55→23:23)
--- NOTE | 2022-03-30 23:18 | PC.NURSE ---
8349 Patient continues to climb out of bed, despite RN and staff asking patient to use call light. Patient tearful, talking about loss of daughter and in 2016. Not tolerating continuous tele, BP cuff and 02 probe. notified and ativan suggested again. Tech remains at bedside for safety
[2022-03-30] MEDS: LORazepam 0.5 MG TABLET 2 MG PO (23:23)
[2022-03-30 23:46] LABS: Ethanol (ETOH) 277 mg/dL
[2022-03-31] VITALS (20 sets, daily range): BP systolic 112–145; BP diastolic 64–94; PULSE 81–122; RESP 0–36; O2SAT 78–100
[2022-03-31] MEDS: PHENobarbital 65 MG/ML VIAL IV (00:01)
--- NOTE | 2022-03-31 00:22 | PC.NURSE ---
0022 Patient in new room and verbalizes understanding that if he can follow directions and safety plan than he will not be restrained. He is placed back on continuous awake overnight monitor, BP cuff and 02 probe. This RN startes 1:1 for safety
--- NOTE | 2022-03-31 00:36 | PC.NURSE ---
2300 Staff called to Pts Rm. Pt has bottle of Vodka and not willing to give it to staff. This DIRECTOR OF CURRICULUM AND INSTRUCTION speaks with Pt about going to Detox and if police are called it could affect his options for Detox acceptance. Pt voluntarily gives bottle to this DIRECTOR OF CURRICULUM AND INSTRUCTION. DIRECTOR OF CURRICULUM AND INSTRUCTION tells pt that it will be labeled and locked in a cabinet with the rest of his belongings, Pt acknowledges
--- NOTE | 2022-03-31 03:00 | PC.NURSE ---
0300 [facility] intake [facility] for [facility]
--- NOTE | 2022-03-31 03:03 | PC.NURSE ---
0303 Patient continues to sleep, respirations equal, regular and unlabored. no acute distress noted. 1:1 continued for safety
--- NOTE | 2022-03-31 03:11 | PC.NURSE ---
[place] detox contact [facility] [phone] #[phone]
[2022-03-31] MEDS: PHENobarbital 65 MG/ML VIAL 30 MG IV ×2 (04:34→06:40)
--- NOTE | 2022-03-31 04:50 | PC.NURSE ---
0430 Patient awakens, attempting to climb out of bed and removing tele stickers, BP cuff and 02 probe. Attempting to remove IV. Staff enters rooms and coaches patient back into [facility]. He is updating on plan of care and encouraged to remain in bed and follow directions. MD notified of patients anxiety and agitation. Verbal order for 30mg IV phenobarbital for now given.
--- NOTE | 2022-03-31 07:58 | PC.NURSE ---
Pt stated I'm ready to go. I've been in touch with a friend and they will pick me up. Pt requested paper scrubs to wear under his clothing for insulation. ALANNA 9, performed @ 2507.
== END 2022-03-31 07:50 | disposition home or self-care (01) ==
PROVIDERS: Emergency Medicine; Emergency Provider Emergency Medicine
DX: F10.129 Alcohol abuse with intoxication, unspecified (principal); Y90.8 Blood alcohol level of 240 mg/100 ml or more; R40.4 Transient alteration of awareness; W18.30XA Fall on same level, unspecified, initial encounter
CPT/HCPCS: 36415; 70450; 71045; 72125; 80053; 80320; 80329; 85025; 96361; 96374; 96375; 96376; 99285; G0480; J2060; J2560

== ENCOUNTER 2022-03-31 09:18 | Emergency (ER) | payer OTHER, MEDICAID, SELFPAY ==
[2021-07-26 09:14] VITALS: PULSE 51; RESP 16; O2SAT 98
[2021-07-26 10:17] VITALS: RESP 15
[2022-03-15 21:17] VITALS: BMI 22.7
[2022-03-31] VITALS (7 sets, daily range): BP systolic 118–122; BP diastolic 62–70; PULSE 72–102; RESP 12–20; TEMP 36.6; O2SAT 95–99
--- NOTE | 2022-03-31 10:17 | PC.NURSE ---
pt refused to come into ED 0934 refused 2nd time 0943 policyholder information clerk were called,pt refused to get up,stretcher brought to lobby,pt moved to stretcher and brought to room in ED. Dr Sarkar there at that time.
--- NOTE | 2022-03-31 10:38 | PC.NURSE ---
Pt here multiple times for alcohol related visits. Pt d/c this am. Pt drinking alcohol in the lobby. Pt refused to initally be seen after checking in,telling me that he was meditating. Pt then refused to answer me,police were called. Refused to get up. Dr Sarkar and I went to lobby moved him to a stretcher and brought him into ED. Pt is snoring,will not answer questions or follow commands. Pt responds to pain. Pt moving all extremities,vital signs stable.
--- NOTE | 2022-03-31 10:43 | PC.NURSE ---
faxed to [facility] records from 03/31/22 check in visit fax [phone]
[2022-03-31 10:46] LABS: Add Manual Diff / Slide Review NO; Basophils Absolute Auto 0 /uL (0-100); Basophils Percent Auto 0.6 % (0-2); Eosinophils Absolute Auto 0 /uL (0-450); Eosinophils Percent Auto 0.8 % (2-4); Hematocrit 30.7 % (41-53); Hemoglobin 10.3 g/dL (13.5-17.5); Lymphocytes Absolute Auto 1000 /uL (1100-4500); Lymphocytes Percent Auto 25.8 % (25-40); Mean Corpuscular HGB Conc 33.7 % (30-36); Mean Corpuscular Hemoglobin 30.3 PG (26-34); Mean Corpuscular Volume 90.1 fL (80-100); Monocytes Absolute Auto 300 /uL (0-900); Monocytes Percent Auto 8.5 % (3-14); Neutrophils Absolute Auto 2400 /uL (1500-7000); Neutrophils Percent Auto 64.3 % (50-75); Platelet Count 139 X10^3/uL (150-400); Red Blood Cell Count 3.41 X10^6/uL (4.5-5.9); Red Cell Distribution Width 17.4 % (11.6-14.8); White Blood Cell Count 3.8 X10^3/uL (4.5-11.0)
[2022-03-31 11:05] LABS: Acetaminophen < 10 ug/mL (10-30); Alanine Aminotransferase 57 IU/L (<50); Albumin 3.5 g/dL (3.5-5.0); Albumin Globulin Ratio 1.1 (1.0-2.8); Alkaline Phosphatase 60 U/L (38-126); Aspartate Aminotransferase 64 IU/L (17-59); BUN Creatinine Ratio 16.7 (6-22); Bilirubin Total 0.2 mg/dL (0.2-1.3); Blood Urea Nitrogen 8 mg/dL (9-20); Calcium 8.3 mg/dL (8.4-10.2); Carbon Dioxide 22 mmol/L (22-32); Chloride 111 mmol/L (98-107); Estimated Glomerular Filt Rate > 60 mL/min (>60); Globulin 3.1 g/dL (1.7-4.1); Glucose 95 mg/dL (70-100); HEMOLYSIS < 15 (0-50); Salicylate < 1.0 mg/dL (<20); Sodium 145 mmol/L (137-145); Total Protein 6.6 g/dL (6.3-8.2)
[2022-03-31 11:11] LABS: COVID19 -Nasal RAPID Negative (Negative)
[2022-03-31 11:12] LABS: Ethanol (ETOH) 394 mg/dL
--- NOTE | 2022-03-31 11:17 | PC.NURSE ---
Patient resting with eyes closed, arouses to pain, refuses to speak, no sign of emesis, emptied his bladder on the bed and floor. Pt requested d/c this am stating his friend was picking him up, refused to sign d/c papers, after d/c pt appears to have ingested more alcohol, police called to the ED lobby for pt's intoxication behavior, and then pt asked to check back in to ED.
[2022-03-31 11:21] LABS: Free T4, Direct Thyroxine 0.78 ng/dL (0.78-2.19)
[2022-03-31 11:35] LABS: Thyroid Stimulating Hormone 0.908 uIU/mL (0.47-4.68)
--- NOTE | 2022-03-31 12:24 | DI.CT.S_ITS ---
PROCEDURE: CT HEAD/BRAIN WO CON INDICATIONS: fall TECHNIQUE: Noncontrast 4.5 mm thick angled axial sections acquired from the foramen magnum to the vertex, with coronal and sagittal reformats. For radiation dose reduction, the following was used: automated exposure control, adjustment of mA and/or kV according to patient size. COMPARISON: [facility], CT, CT HEAD/BRAIN WO CON, 09/01/2018, 13:59. [facility], CT, CT HEAD WITHOUT CONTRAST, 08/20/2021, 21:46. [facility], CT, CT HEAD/BRAIN WO CON, 03/30/2022, 19:38. FINDINGS: Image quality: This examination is limited by involuntary motion artifact. Mild streak artifact can be seen through the skull base. CSF spaces: Basal cisterns are patent. No extra-axial fluid collections. Ventricles are normal in size and shape. Brain: No midline shift. No intracranial masses or hemorrhage. Dey-white matter interface is normal. Skull and face: Calvarium and visualized facial bones are intact, without suspicious lesions. There is remote appearing scalloping seen involving the outer table of the right posterior calvarium, as on series 3, image 31. This is stable, chronic finding. Sinuses: Visualized sinuses and mastoids are clear. IMPRESSION: Limited study demonstrating no findings of acute intracranial hemorrhage. If clinically appropriate, please consider short-term follow-up. Incidental note is made of: Remote bone remodeling the right posterior calvarium Dictated by: Gregory Hawkins M.D. on 03/31/2022 at 12:35 Approved by: Gregory Hawkins M.D. on 03/31/2022 at 12:37
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
--- NOTE | 2022-03-31 13:10 | CM.SWNOTE ---
SPECIALIST FIELD ENGINEER Note Patient is 32 y/o male who presents to the ED mulitple times within the last 24 hours due to concern for ETOH intoxication and withdrawals. Patient has a hx of 26 ED visits within the last 12 months related to his ETOH use. It is the opinion of this SPECIALIST FIELD ENGINEER that patient is a danger to himself and others due to his consistent ETOH use and demonstrated behavior in this ED. This SPECIALIST FIELD ENGINEER observed patient fall on two occasions within the last hour due to his intoxication and patient seeking to leave ED. It was reported to this ED that patient was discharged to home earlier this morning upon medical clearance and patient proceeded to drink alcohol in the ED lobby. ED provider requested that patient return to the ED for further medical evaluation. SPECIALIST FIELD ENGINEER reviews patient with ED provider and it is the opinion of this SPECIALIST FIELD ENGINEER that patient is appropriate for [facility] placement. SPECIALIST FIELD ENGINEER to seek DCR evaluation and dispatch DCR upon medical clearance. At this time, SPECIALIST FIELD ENGINEER is awaiting the results of patient's CT scan after he fell and possibly hit his head. ED provider Dr. Sarkar indicates agreement and understanding. Plan: SPECIALIST FIELD ENGINEER to dispatch DCR upon patient's medical clearance. Nicolette Hooks, ART HISTORY PROFESSOR
--- NOTE | 2022-03-31 13:16 | PC.NURSE ---
Pt getting out of bed, asking for clothing to leave, verbally aggressive to this nurse w/ arms out stating you know I'll just find another way. Attempted to verbally redirect w/o effect. Given meal but continued to attempt to leave room and unable to be verbally redirected. Door closed almost all the way but unlocked to decreased stimulation. Pt layed down on bed. Eating meal. 1:1 observation. Easy work of breathing. Moving all extremities equally well.
--- NOTE | 2022-03-31 13:35 | PC.NURSE ---
late entry: 1324: Pt attempted to segura door and this RN standing near door in attempt to leave. Verbally redirected but no compliance. States I will find another way. Exit seeking and verbally /physically aggressive w/ balled fists and pressured speech. Door shut for locked seclusion. Dr. Sarkar to room-side.
--- NOTE | 2022-03-31 13:44 | PC.NURSE ---
Pt states he has 'no idea' what meds he is taking. Medication reconciliation completed from pharmacy records and may not be complete. Lamotrigine level low per previous visit. Dr. Sarkar is aware.
--- NOTE | 2022-03-31 13:51 | PC.NURSE ---
intermittantly laying down then getting up and banging on doors in room. Verbal interaction seems to agitate: attempting to decreased stimulation at this time by lower lights and low noise.
--- NOTE | 2022-03-31 14:00 | PC.NURSE ---
Late entry, around 1200 today pt got out of bed and fell and hit head. Provider notified and CT ordered. After returning from CT pt then got out of bed again and had a second fall. Pt then proceeded to crawl back to his bed. provider notified.
--- NOTE | 2022-03-31 14:07 | PC.NURSE ---
Pt continues to intermittently laydown and then get up and walk around to doors and bang to exit seek.
--- NOTE | 2022-03-31 14:50 | PC.NURSE ---
1445: Pt asked for drink (given) and blanket (given). When I was leaving room attempted to segura this RN and out door. Door shut. Pt not injured. Continues to have intermittent agitation / exit seeking alternating with laying down.
[2022-03-31] MEDS: diazePAM 5 MG TABLET 10 MG PO (15:02)
--- NOTE | 2022-03-31 15:05 | PC.NURSE ---
Pt w/ increased agitation. CIWA completed. Dr. Sarkar aware and ordered Valium which was administered. Updated pt on DCR arrival as well as need to stay for mental health evaluation.
--- NOTE | 2022-03-31 15:25 | PC.NURSE ---
Pt banging on door w/ open hand. When I ask him to sit he ouths words but I can hear him clapping which I percieve to be an attempt to get me to open door. Pacing in room. verbally redirected w/o effect. 1:1 observation continues. Ambulatory wo aid. Moving all extremities equally well. Clear speech, easy work of breathing. No injuries noted.
[2022-03-31] MEDS: KETAMINE 500 MG/5 ML INJ 400 MG IM (17:12)
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
[2022-03-31 18:05] LABS: Add Manual Diff / Slide Review NO; Basophils Absolute Auto 0 /uL (0-100); Basophils Percent Auto 0.4 % (0-2); Eosinophils Absolute Auto 0 /uL (0-450); Eosinophils Percent Auto 0.5 % (2-4); Hematocrit 30.6 % (41-53); Hemoglobin 10.4 g/dL (13.5-17.5); Lymphocytes Absolute Auto 1800 /uL (1100-4500); Lymphocytes Percent Auto 36.2 % (25-40); Mean Corpuscular Hemoglobin 30.5 PG (26-34); Mean Corpuscular Volume 89.7 fL (80-100); Monocytes Absolute Auto 400 /uL (0-900); Monocytes Percent Auto 7.5 % (3-14); Neutrophils Absolute Auto 2700 /uL (1500-7000); Neutrophils Percent Auto 55.4 % (50-75); Platelet Count 144 X10^3/uL (150-400); Red Blood Cell Count 3.41 X10^6/uL (4.5-5.9); Red Cell Distribution Width 17.1 % (11.6-14.8); White Blood Cell Count 4.9 X10^3/uL (4.5-11.0)
--- NOTE | 2022-03-31 18:38 | PC.NURSE ---
Dr. Geronimo discontinued sitting / pt may leave if he would like. BUTTON PUSHER calling mother. Pt has walker within reach and uses appropriately.
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
== END 2022-03-31 19:37 | disposition home or self-care (01) ==
PROVIDERS: Emergency Medicine; Emergency Provider Emergency Medicine
DX: F10.229 Alcohol dependence with intoxication, unspecified (principal); Y90.8 Blood alcohol level of 240 mg/100 ml or more; S09.90XA Unspecified injury of head, initial encounter; R40.4 Transient alteration of awareness; W18.30XA Fall on same level, unspecified, initial encounter; Z20.822 Contact with and (suspected) exposure to COVID-19
CPT/HCPCS: 36415; 70450; 80053; 80320; 80329; 84439; 84443; 85025; 87635; 96361; 96375; 96376; 99285; C9803; G0480; J2560

== ENCOUNTER 2022-04-01 08:37 | Emergency (ER) | payer OTHER, MEDICAID, SELFPAY ==
[2021-07-26 09:14] VITALS: PULSE 51; RESP 16; O2SAT 98
[2021-07-26 10:17] VITALS: RESP 15
[2022-03-15 21:17] VITALS: BMI 22.7
[2022-04-01 08:42] VITALS: BP 132/83; PULSE 82; RESP 12; TEMP 36.3; O2SAT 88
--- NOTE | 2022-04-01 08:45 | PC.NURSE ---
pt asked to change into dry pants. pt states fuck that no one fucking feeds me, im not changing my pants, i hate this place
--- NOTE | 2022-04-01 08:54 | ED.GENADULT ---
HPI - General Adult General Chief complaint: Toxicology Problem Stated complaint: ETOH Time Seen by Provider: 04/01/22 08:38 Source: EMS Mode of arrival: EMS History of Present Illness HPI narrative: 32-year-old gentleman with severe alcohol use disorder who has been seen multiple times over the last number of days and continues to drink. He was found passed out in a parking lot and brought back to the emergency room this morning. He is evaluated by the DCR yesterday and was detained but there was concern over his mildly decreased hematocrit and the longterm center declined keeping him. After he was released he continued to drink. This morning he states that he simply wants to . His main request is additional sedative because he is still breathing. He is significantly intoxicated, cold, has voided in his pants, still has his boot in place for the left foot. Related Data Home Medications Medication Instructions Recorded Confirmed buspirone 15 mg tablet 15 mg PO BID PRN Anxiety 03/31/22 03/31/22 clonidine HCl 0.1 mg tablet 0.1 mg PO BEDTIME 03/31/22 03/31/22 lamotrigine 25 mg tablet 25 mg PO BID 03/31/22 03/31/22 pregabalin 75 mg capsule 75 mg PO BID 03/31/22 03/31/22 sertraline 100 mg tablet 150 mg PO DAILY 03/31/22 03/31/22 Allergies Allergy/AdvReac Type Severity Reaction Status Date / Time shrimp [SHRIMP] Allergy Severe THROAT Verified 04/01/22 08:44 SWELLING/HIVES diazepam [From VALIUM] Allergy Intermediate LEG Verified 04/01/22 08:44 SWELLING haloperidol [From HALDOL] Allergy Unknown DYSTONIA Verified 04/01/22 08:44 naproxen [NAPROXEN] AdvReac Mild NAUSEA/GI Verified 04/01/22 08:44 DISTRESS Review of Systems Review of Systems ROS Unobtainable: Unobtainable due to mental status/LOC Patient History Medical History Alcoholism Depression Eating disorder Epilepsy Low back pain Surgical History History of ankle surgery Family History Grandfather Type 2 diabetes mellitus without complication, unspecified truck terminal manager insulin use status Grandmother Type 2 diabetes mellitus without complication, unspecified truck terminal manager insulin use status Mother Uncomplicated asthma, unspecified asthma severity Sister Uncomplicated asthma, unspecified asthma severity Unknown No problems noted. Social History household members: spouse, family and children Smoking Status: Current every day smoker alcohol intake: current Smoking Status: Current every day smoker alcohol intake frequency: 3 or more drinks per day Alcohol type: hard liquor and other Substance Use Type: does not use Exam Initial Vital Signs Initial Vital Signs: Vital Signs Temperature 97.3 F L 04/01/22 08:42 Pulse Rate 82 04/01/22 08:42 Respiratory Rate 12 04/01/22 08:42 Blood Pressure 132/83 04/01/22 08:42 Pulse Oximetry 88 L 04/01/22 08:42 Oxygen Delivery Method 04/01/22 08:42 General: Disheveled, cool from sleeping outside, clearly intoxicated HEENT: Moist mucous membranes, normal sclera with reactive pupils, Respiratory: Lungs are clear to auscultation, no wheezing no rales no rhonchi. Full and symmetrical air movement. Oxygen saturations are in the mid 80s however peripheral perfusion is poor. Will re-evaluate once he is warmed a bit. There is no respiratory distress Cardiac: Regular rate and rhythm no murmurs no bruits Abdomen: Soft, nontender, good bowel tones, no flank pain Skin: Warm and dry, no rashes Neurologic: Acutely intoxicated Extremities: Cool to the touch, left foot with his boot in place prior surgery Psych: Continues to mumble I just want to and despite his significant intoxication level, continues to request additional sedation Course Orders Ordered: ED Orders 04/01/22 11:05 Complete Blood Count AUTO DIFF Stat Comprehensive Metabolic Panel Stat 04/01/22 11:07 Consult to FRAMING MILL OPERATOR HELPER - Manager Of Merchandising Stat urine tox [Urine Drug Screen, Rapid] Stat 04/01/22 11:08 ETOH [Ethanol (ETOH)] Stat 04/01/22 11:20 COVID19 -Nasal RAPID/Pre-Proc Stat Chlordiazepoxide HCl (Chlordiazepoxide 25 Mg Capsule) 50 mg PO Q6HR HOLGER Last Admin: 04/01/22 11:15 Dose: 50 mg Documented By: JANNY Chlordiazepoxide HCl (Chlordiazepoxide 25 Mg Capsule) 100 mg PO NOW ONE Stop: 04/01/22 15:44 Discontinued Medications Furosemide (Furosemide 40 Mg Tablet) 40 mg PO NOW ONE Stop: 04/01/22 08:37 Last Admin: 04/01/22 09:00 Dose: 40 mg Documented By: JANNY Ketamine HCl (Ketamine 500 Mg/5 Ml Inj) 400 mg IM NOW ONE Stop: 04/01/22 12:59 Last Admin: 04/01/22 13:07 Dose: 400 mg Documented By: PRIETO Vital Signs Vital signs: Vital Signs - 8 hr 04/01/22 08:42 04/01/22 13:12 04/01/22 13:31 Temperature 97.3 F L Pulse Rate 82 98 H 98 H Respiratory Rate 12 22 20 Blood Pressure 132/83 126/83 117/70 Pulse Oximetry 88 L 93 95 Oxygen Delivery Method Room Air Room Air 04/01/22 14:16 04/01/22 14:38 04/01/22 15:16 Temperature Pulse Rate 100 H 98 H 98 H Respiratory Rate 18 12 14 Blood Pressure 111/62 98/56 L 115/59 L Pulse Oximetry 95 96 95 Oxygen Delivery Method Room Air Room Air Room Air Medical Decision Making Lab Data Result diagrams: 04/01/22 11:05 04/01/22 11:05 Labs: Lab Results 04/01/22 04/01/22 04/01/22 Range/Units 11:05 11:05 11:08 WBC 6.9 (4.5-11.0) X10^3/uL RBC 4.22 L (4.5-5.9) X10^6/uL Hgb 12.7 L (13.5-17.5) g/dL Hct 37.8 L (41-53) % MCV 89.7 (80-100) fL MCH 30.2 (26-34) PG MCHC 33.7 (30-36) % RDW 17.2 H (11.6-14.8) % Plt Count 186 (150-400) X10^3/uL Neut % (Auto) 52.5 (50-75) % Lymph % (Auto) 40.3 H (25-40) % [place] % (Auto) 5.7 (3-14) % Eos % (Auto) 0.8 L (2-4) % Baso % (Auto) 0.7 (0-2) % Neut # (Auto) 3600 (9681-1419) /uL Lymph # (Auto) 2800 (2308-9281) /uL [place] # (Auto) 400 (0-900) /uL Eos # (Auto) 100 (0-450) /uL Baso # (Auto) 0 (0-100) /uL Sodium 148 H (137-145) mmol/L Potassium 3.5 (3.4-5.1) mmol/L Chloride 108 H (98-107) mmol/L Carbon Dioxide 26 (22-32) mmol/L BUN 6 L (9-20) mg/dL Creatinine 0.48 L (0.66-1.25) mg/dL Estimated GFR > 60 (>60) mL/min BUN/Creatinine Ratio 12.5 (6-22) Glucose 91 (70-100) mg/dL Calcium 8.1 L (8.4-10.2) mg/dL Total Bilirubin 0.3 (0.2-1.3) mg/dL AST 182 H (17-59) IU/L ALT 156 H (<50) IU/L Alkaline Phosphatase 74 (38-126) U/L Total Protein 7.7 (6.3-8.2) g/dL Albumin 4.2 (3.5-5.0) g/dL Globulin 3.5 (1.7-4.1) g/dL Albumin/Globulin Ratio 1.2 (1.0-2.8) Ethyl Alcohol 335 H ( - 10) mg/dL SARS-CoV-2 (PCR) (Negative) 04/01/22 Range/Units 11:20 WBC (4.5-11.0) X10^3/uL RBC (4.5-5.9) X10^6/uL Hgb (13.5-17.5) g/dL Hct (41-53) % MCV (80-100) fL MCH (26-34) PG MCHC (30-36) % RDW (11.6-14.8) % Plt Count (150-400) X10^3/uL Neut % (Auto) (50-75) % Lymph % (Auto) (25-40) % [place] % (Auto) (3-14) % Eos % (Auto) (2-4) % Baso % (Auto) (0-2) % Neut # (Auto) (8057-7512) /uL Lymph # (Auto) (8890-3984) /uL [place] # (Auto) (0-900) /uL Eos # (Auto) (0-450) /uL Baso # (Auto) (0-100) /uL Sodium (137-145) mmol/L Potassium (3.4-5.1) mmol/L Chloride (98-107) mmol/L Carbon Dioxide (22-32) mmol/L BUN (9-20) mg/dL Creatinine (0.66-1.25) mg/dL Estimated GFR (>60) mL/min BUN/Creatinine Ratio (6-22) Glucose (70-100) mg/dL Calcium (8.4-10.2) mg/dL Total Bilirubin (0.2-1.3) mg/dL AST (17-59) IU/L ALT (<50) IU/L Alkaline Phosphatase (38-126) U/L Total Protein (6.3-8.2) g/dL Albumin (3.5-5.0) g/dL Globulin (1.7-4.1) g/dL Albumin/Globulin Ratio (1.0-2.8) Ethyl Alcohol ( - 10) mg/dL SARS-CoV-2 (PCR) Negative (Negative) MDM Narrative Medical decision making narrative: 32-year-old gentleman with was severe alcohol use disorder drinking to the point of oblivious and passing out regularly with repeat visits to the emergency department after he is has passed out, typically in a road a parking lot. Was seen yesterday and detained to secure detox however the facility was concerned that his CBC was abnormal. He has been in and out of the emergency department for the last 4-5 days with no signs of bleeding. Yesterday suspicion was delusion as an explanation. Repeated today and is backup to his baseline. There is no evidence of bleeding or infection. Just after lab test returned making it clear that we could try for placement again, the patient eloped. Police were kind enough to help him back into room 13. He clearly states today that he simply wants to and is obviously behaviorally proceeding to do just this. Every time he is in he requests additional sedation to the point that he is essentially obtunded. With an alcohol level at 3:35 a.m., already given 50 mg of Librium he is complaining of severe agitation, anxiety and simply wants to . Yesterday he was given IM Toradol for severe agitation and this seem quite effective. He requested that this be repeated today. [facility] does have a bed available are reviewing labs at this time. Patient is clearly a danger to himself and his alcohol use disorder is severely disabling. Long-Term papers are still available from yesterday, will continue to work on placement. Accepted at [facility] and can arrive after 7pm, 3hr transfer. Will arrange for transport. His mother is notified. 345 transport here. Patient is awake and actually states that he feels ?pretty good? for the 1st time in quite a long period. This is with an alcohol level likely down to 320, after 50 mg of Librium and 400 mg of ketamine. In anticipation of the 3+ hour ride to the [facility] will give him 100 mg of Librium now Critical Care Time Critical Care Time Critical Care Time: Yes Total Critical Care Time: 47 Attestation: Critical care time is separate from other billable procedures. There is a high probability of a significant, sudden or life-threatening deterioration that requires my full and direct attention, intervention and personal management. This critical care time includes consultation with family and other consulting doctors, review of records, and interpretation of data from labs, EKGs and imaging as well as managements of acute alcohol intoxication with behavioral abnormalities, multiple consultations, discussion with family, social Work, police, record review and medication management including oral and IM for severe agitation Discharge Plan Departure Patient Disposition: Xfer Psychiatric Hosp Clinical Impression: Alcohol use disorder, severe, dependence Referrals: Miscellaneous,DoctorMD [Primary Care Provider] -
[2022-04-01] MEDS: FUROSEMIDE 40 MG TABLET PO (09:00)
--- NOTE | 2022-04-01 09:00 | PC.NURSE ---
wet clothing removed, housekeeping washing clothing, pt placed into brief and given warm blankets. pt declines green paper scrubs, left scrubs at bs.
--- NOTE | 2022-04-01 09:05 | PC.NURSE ---
pt walked out of room 13 stating im gonna go, i need a sedative, pt in only green paper top and brief. pt redirectable by rn to return to room 13, rn assisted pt to put on paper srub pants and clean dry socks. pt given warm blankets. pt again requested i need food and a sedative pt tearful at times and states im sorry, im sorry pt then independently lays self down onto mattress on floor and covers self with blankets.
[2022-04-01 11:13] LABS: Add Manual Diff / Slide Review NO; Basophils Absolute Auto 0 /uL (0-100); Basophils Percent Auto 0.7 % (0-2); Eosinophils Absolute Auto 100 /uL (0-450); Eosinophils Percent Auto 0.8 % (2-4); Hematocrit 37.8 % (41-53); Hemoglobin 12.7 g/dL (13.5-17.5); Lymphocytes Absolute Auto 2800 /uL (1100-4500); Lymphocytes Percent Auto 40.3 % (25-40); Mean Corpuscular HGB Conc 33.7 % (30-36); Mean Corpuscular Hemoglobin 30.2 PG (26-34); Mean Corpuscular Volume 89.7 fL (80-100); Monocytes Absolute Auto 400 /uL (0-900); Monocytes Percent Auto 5.7 % (3-14); Neutrophils Absolute Auto 3600 /uL (1500-7000); Neutrophils Percent Auto 52.5 % (50-75); Platelet Count 186 X10^3/uL (150-400); Red Blood Cell Count 4.22 X10^6/uL (4.5-5.9); Red Cell Distribution Width 17.2 % (11.6-14.8); White Blood Cell Count 6.9 X10^3/uL (4.5-11.0)
[2022-04-01] MEDS: chlordiazePOXIDE 25 MG CAPSULE 50 MG PO (11:15)
[2022-04-01 11:26] LABS: Alanine Aminotransferase 156 IU/L (<50); Albumin 4.2 g/dL (3.5-5.0); Albumin Globulin Ratio 1.2 (1.0-2.8); Alkaline Phosphatase 74 U/L (38-126); Aspartate Aminotransferase 182 IU/L (17-59); BUN Creatinine Ratio 12.5 (6-22); Bilirubin Total 0.3 mg/dL (0.2-1.3); Blood Urea Nitrogen 6 mg/dL (9-20); Calcium 8.1 mg/dL (8.4-10.2); Carbon Dioxide 26 mmol/L (22-32); Chloride 108 mmol/L (98-107); Estimated Glomerular Filt Rate > 60 mL/min (>60); Globulin 3.5 g/dL (1.7-4.1); Glucose 91 mg/dL (70-100); HEMOLYSIS < 15 (0-50); Potassium 3.5 mmol/L (3.4-5.1); Sodium 148 mmol/L (137-145); Total Protein 7.7 g/dL (6.3-8.2)
--- NOTE | 2022-04-01 11:26 | PC.NURSE ---
Pt eloped at 1130. [place] PD and physician aware. Pt was given food, juice, water, warm blankets, Librium. Housekeeping washed and dried his wet clothing that he arrived in this morning. Pt is not re-directable and remains defiant. Labs drawn this am. We asked pt to wait for lab results, shortly thereafter the patient left the building through ambulance bay.
[2022-04-01 11:37] LABS: COVID19 -Nasal RAPID Negative (Negative)
[2022-04-01 11:52] LABS: Ethanol (ETOH) 335 mg/dL
--- NOTE | 2022-04-01 12:07 | PC.NURSE ---
Patient left through the ED doors and was brought back to the ED by officer Christiano with [place] [employer]. He is alert and calm.
--- NOTE | 2022-04-01 12:25 | PC.NURSE ---
patient is not suicidal or homicidal but is agitated. Provider is aware.
[2022-04-01] MEDS: KETAMINE 500 MG/5 ML INJ 400 MG IM (13:07)
[2022-04-01 13:12] VITALS: BP 126/83; PULSE 98; RESP 22; O2SAT 93
--- NOTE | 2022-04-01 13:16 | PC.NURSE ---
patient states that hes been having nightmares since 2016 since his premature daughter and almost during childbirth. He states that he has not been the same ever since and has to drink to cope with the pain that he went through. His daughter is 6 years old and her name is Aga Herr. He also stated that he has been diagnosed as agoraphobic
[2022-04-01 13:31] VITALS: BP 117/70; PULSE 98; RESP 20; O2SAT 95
[2022-04-01 14:16] VITALS: BP 111/62; PULSE 100; RESP 18; O2SAT 95
[2022-04-01 14:38] VITALS: BP 98/56; PULSE 98; RESP 12; O2SAT 96
[2022-04-01 15:16] VITALS: BP 115/59; PULSE 98; RESP 14; O2SAT 95
--- NOTE | 2022-04-01 15:19 | PC.NURSE ---
The patient was informed where he was going and he became upset where he was going. At this moment, He states that he will tolerate it.
[2022-04-01] MEDS: chlordiazePOXIDE 25 MG CAPSULE 100 MG PO (15:49)
--- NOTE | 2022-04-01 15:57 | CM.SWNOTE ---
ANALYTICAL MANAGER Note Patient returns to ED via [employer] after eloping from ED earlier today. Patient continues to present with ETOH intoxication and withdrawals. It is the opinion of this ANALYTICAL MANAGER that patient is gravely disabled by his reoccurring ETOH use. ANALYTICAL MANAGER calls TRAY De La Cruz who reports that ANALYTICAL MANAGER can use his intitial detainment paperwork if [facility] has beds and will accept patient. ANALYTICAL MANAGER faxes updated clinicals to [facility] and it is reported by MILLA Malik in intake that patient is accepted by accepting provider VEL Deras with an ETA of 1900. [facility] sets up transportation and patient is scheduled for transport at 1545. ANALYTICAL MANAGER calls [facility] and provides information about patient's transport. ANALYTICAL MANAGER calls TRAY De La Cruz and reports that patient has been accepted at [facility] indicates agreement and understanding. ANALYTICAL MANAGER serves patient with DCR legal paperwork and puts it in patient belongings. ANALYTICAL MANAGER calls patient's mother who is in agreement with patient's acceptance to [facility] detox placement at [facility]. Mother endorses hx of Alcoholism on her side of the family and she has lost two family members to ETOH addiction. Mother endorses that she is trying to save her son's life. Mother is concerned for patient's mental health as well and endorses that he is depressed and experiences hallucinations at times as well. Mother endorses patient's hx of [facility] detainment for both detox and MH. Plan: Patient to transfer via BLS for [facility] detox placement at [facility]. YAMILA AppiahSW
== END 2022-04-01 16:29 ==
PROVIDERS: Emergency Provider Emergency Medicine
DX: F10.229 Alcohol dependence with intoxication, unspecified (principal); R45.851 Suicidal ideations; Y90.8 Blood alcohol level of 240 mg/100 ml or more; Z20.822 Contact with and (suspected) exposure to COVID-19
CPT/HCPCS: 80053; 80320; 85025; 87635; 99284; 99291; C9803

== ENCOUNTER 2022-05-02 17:12 | Emergency (ER) | payer OTHER, MEDICAID, SELFPAY ==
[2021-07-26 09:14] VITALS: PULSE 51; RESP 16; O2SAT 98
[2021-07-26 10:17] VITALS: RESP 15
[2022-03-15 21:17] VITALS: BMI 22.7
[2022-05-02] VITALS (10 sets, daily range): BP systolic 101–118; BP diastolic 49–72; PULSE 82–94; RESP 12–20; TEMP 37; O2SAT 97–100
--- NOTE | 2022-05-02 17:43 | ED_ITS ---
HPI - Alcohol <Edward Rg DO - Last Filed: 05/04/22 15:37> General Chief Complaint: Toxicology Problem Stated Complaint: ETOH on board,responsive to pain Time Seen by Provider: 05/02/22 17:37 Mode of arrival: EMS History of Present Illness HPI narrative: 32-year-old male smoker with extensive alcohol history presents by EMS for alter ed mental status with an empty bottle of vodka on his person. It is reported that he was found down yesterday and intubated in the feel and subsequently transferred to an outside facility. He was discharged later today and presumably bought a bottle of vodka on the way, he was found unresponsive on a bus. EMS arrived he is guarding his airway and controlling secretions, responding to noxious stimuli in absent of any obvious trauma or injury. Related Data Home Medications Medication Instructions Recorded Confirmed buspirone 15 mg tablet 15 mg PO BID PRN Anxiety 03/31/22 03/31/22 clonidine HCl 0.1 mg tablet 0.1 mg PO BEDTIME 03/31/22 03/31/22 lamotrigine 25 mg tablet 25 mg PO BID 03/31/22 03/31/22 pregabalin 75 mg capsule 75 mg PO BID 03/31/22 03/31/22 sertraline 100 mg tablet 150 mg PO DAILY 03/31/22 03/31/22 Allergies Allergy/AdvReac Type Severity Reaction Status Date / Time shrimp [SHRIMP] Allergy Severe THROAT Verified 05/02/22 17:34 SWELLING/HIVES diazepam [From VALIUM] Allergy Intermediate LEG Verified 05/02/22 17:34 SWELLING haloperidol [From HALDOL] Allergy Unknown DYSTONIA Verified 05/02/22 17:34 naproxen [NAPROXEN] AdvReac Mild NAUSEA/GI Verified 05/02/22 17:34 DISTRESS Review of Systems <Edward Rg DO - Last Filed: 05/04/22 15:37> Review of Systems ROS Unobtainable: Unobtainable due to mental status/LOC Patient History <Edward Rg DO - Last Filed: 05/04/22 15:37> Medical History Alcoholism Depression Eating disorder Epilepsy Low back pain Surgical History History of ankle surgery Family History Grandfather Type 2 diabetes mellitus without complication, unspecified senior living insulin use status Grandmother Type 2 diabetes mellitus without complication, unspecified senior living insulin use status Mother Uncomplicated asthma, unspecified asthma severity Sister Uncomplicated asthma, unspecified asthma severity Unknown No problems noted. Social History household members: spouse, family and children Smoking Status: Current every day smoker alcohol intake: current Smoking Status: Current every day smoker alcohol intake frequency: 3 or more drinks per day Alcohol type: hard liquor and other Substance Use Type: does not use Exam <DO Laisha Lombardi Last Filed: 05/04/22 15:37> Narrative Exam Narrative: GENERAL: [32] year old patient appears stated age. Well-developed patient, in obvious distress, obtunded but easily arousable to noxious stimuli HEAD: Atraumatic. Normocephalic. EYES: Pupils equal round and reactive. Extraocular motions intact. No scleral icterus. No injection or drainage. ENT: Nose without bleeding, purulent drainage. Throat without erythema, tonsillar hypertrophy or exudate. Airway patent. NECK: Trachea midline. Non tender CARDIOVASCULAR: Regular rate and rhythm without murmurs, gallops, or rubs. RESPIRATORY: Clear to auscultation. Breath sounds equal bilaterally. No wheezes, rales, or rhonchi. GASTROINTESTINAL: Abdomen soft, non-tender, nondistended. EXTREMITIES: No edema or joint tenderness. BACK: Nontender without deformity or crepitance. No flank tenderness. SKIN: No rash or erythema of visible areas Initial Vital Signs Initial Vital Signs: Vital Signs Pulse Rate 94 H 05/02/22 17:29 Pulse Oximetry 99 05/02/22 17:29 <Katiana Hopkins DO - Last Filed: 05/03/22 06:46> Initial Vital Signs Initial Vital Signs: Vital Signs Pulse Rate 94 H 05/02/22 17:29 Pulse Oximetry 99 05/02/22 17:29 Course <Edward Rg DO - Last Filed: 05/04/22 15:37> Orders Ordered: Discontinued Medications Sodium Chloride (Normal Saline 0.9%) 1,000 mls @ 150 mls/hr IV CONT HOLGER Last Admin: 05/02/22 17:54 Dose: 150 mls/hr Documented By: [facility] Vital Signs Vital signs: Vital Signs - 8 hr 05/02/22 17:31 05/02/22 17:29 05/02/22 17:30 Temperature 98.6 F Pulse Rate 91 H 94 H 92 H Respiratory Rate 12 Blood Pressure 107/56 L Pulse Oximetry 99 99 99 Oxygen Delivery Method Room Air 05/02/22 17:45 05/02/22 18:00 05/02/22 18:00 Temperature Pulse Rate 84 86 Respiratory Rate Blood Pressure 113/63 Pulse Oximetry 100 100 Oxygen Delivery Method Room Air 05/02/22 18:15 05/02/22 18:30 05/02/22 18:30 Temperature Pulse Rate 87 82 Respiratory Rate Blood Pressure 101/49 L Pulse Oximetry 100 98 Oxygen Delivery Method 05/02/22 18:52 05/02/22 19:00 Temperature Pulse Rate 94 H 85 Respiratory Rate Blood Pressure Pulse Oximetry 98 99 Oxygen Delivery Method Room Air <Katiana Hopkins DO - Last Filed: 05/03/22 06:46> Orders Ordered: Discontinued Medications Sodium Chloride (Normal Saline 0.9%) 1,000 mls @ 150 mls/hr IV CONT HOLGER Last Admin: 05/02/22 17:54 Dose: 150 mls/hr Documented By: [facility] Vital Signs Vital signs: Vital Signs - 8 hr 05/02/22 17:31 05/02/22 17:29 05/02/22 17:30 Temperature 98.6 F Pulse Rate 91 H 94 H 92 H Respiratory Rate 12 Blood Pressure 107/56 L Pulse Oximetry 99 99 99 Oxygen Delivery Method Room Air 05/02/22 17:45 05/02/22 18:00 05/02/22 18:00 Temperature Pulse Rate 84 86 Respiratory Rate Blood Pressure 113/63 Pulse Oximetry 100 100 Oxygen Delivery Method Room Air 05/02/22 18:15 05/02/22 18:30 05/02/22 18:30 Temperature Pulse Rate 87 82 Respiratory Rate Blood Pressure 101/49 L Pulse Oximetry 100 98 Oxygen Delivery Method 05/02/22 18:52 05/02/22 19:00 Temperature Pulse Rate 94 H 85 Respiratory Rate Blood Pressure Pulse Oximetry 98 99 Oxygen Delivery Method Room Air MDM - Alcohol <Edward Cygnet, DO - Last Filed: 05/04/22 15:37> Lab Data Result diagrams: 05/02/22 17:40 05/02/22 17:40 Labs: Lab Results 05/02/22 05/02/22 05/02/22 Range/Units 17:40 17:40 17:40 WBC 7.8 (4.5-11.0) X10^3/uL RBC 4.17 L (4.5-5.9) X10^6/uL Hgb 12.4 L (13.5-17.5) g/dL Hct 36.6 L (41-53) % MCV 87.9 (80-100) fL MCH 29.7 (26-34) PG MCHC 33.8 (30-36) % RDW 15.6 H (11.6-14.8) % Plt Count 147 L (150-400) X10^3/uL Neut % (Auto) 67.9 (50-75) % Lymph % (Auto) 26.2 (25-40) % Yancey % (Auto) 5.0 (3-14) % Eos % (Auto) 0.1 L (2-4) % Baso % (Auto) 0.8 (0-2) % Neut # (Auto) 5300 (2696-5210) /uL Lymph # (Auto) 2100 (7969-5539) /uL Yancey # (Auto) 400 (0-900) /uL Eos # (Auto) 0 (0-450) /uL Baso # (Auto) 100 (0-100) /uL Sodium 148 H (137-145) mmol/L Potassium 3.5 (3.4-5.1) mmol/L Chloride 110 H (98-107) mmol/L Carbon Dioxide 24 (22-32) mmol/L BUN 17 (9-20) mg/dL Creatinine 0.70 (0.66-1.25) mg/dL Estimated GFR > 60 (>60) mL/min BUN/Creatinine Ratio 24.3 H (6-22) Glucose 84 (70-100) mg/dL Lactate 2.5 H (0.7-2.1) mmol/L Calcium 7.7 L (8.4-10.2) mg/dL Total Bilirubin 0.1 L (0.2-1.3) mg/dL Conjugated Bilirubin 0.0 (0.0-0.3) md/dL Unconjugated Bilirubin 0.0 (0.0-1.1) mg/dL AST 36 (17-59) IU/L ALT 22 (<50) IU/L Alkaline Phosphatase 59 (38-126) U/L Total Protein 6.8 (6.3-8.2) g/dL Albumin 3.7 (3.5-5.0) g/dL Globulin 3.1 (1.7-4.1) g/dL Albumin/Globulin Ratio 1.2 (1.0-2.8) Salicylates < 1.0 (<20) mg/dL Acetaminophen < 10 (10-30) ug/mL Ethyl Alcohol 378 H ( - 10) mg/dL <Katiana Hopkins, DO - Last Filed: 05/03/22 06:46> Lab Data Labs: Lab Results 05/02/22 05/02/22 05/02/22 Range/Units 17:40 17:40 17:40 WBC 7.8 (4.5-11.0) X10^3/uL RBC 4.17 L (4.5-5.9) X10^6/uL Hgb 12.4 L (13.5-17.5) g/dL Hct 36.6 L (41-53) % MCV 87.9 (80-100) fL MCH 29.7 (26-34) PG MCHC 33.8 (30-36) % RDW 15.6 H (11.6-14.8) % Plt Count 147 L (150-400) X10^3/uL Neut % (Auto) 67.9 (50-75) % Lymph % (Auto) 26.2 (25-40) % Yancey % (Auto) 5.0 (3-14) % Eos % (Auto) 0.1 L (2-4) % Baso % (Auto) 0.8 (0-2) % Neut # (Auto) 5300 (1254-5755) /uL Lymph # (Auto) 2100 (6420-8196) /uL Yancey # (Auto) 400 (0-900) /uL Eos # (Auto) 0 (0-450) /uL Baso # (Auto) 100 (0-100) /uL Sodium 148 H (137-145) mmol/L Potassium 3.5 (3.4-5.1) mmol/L Chloride 110 H (98-107) mmol/L Carbon Dioxide 24 (22-32) mmol/L BUN 17 (9-20) mg/dL Creatinine 0.70 (0.66-1.25) mg/dL Estimated GFR > 60 (>60) mL/min BUN/Creatinine Ratio 24.3 H (6-22) Glucose 84 (70-100) mg/dL Lactate 2.5 H (0.7-2.1) mmol/L Calcium 7.7 L (8.4-10.2) mg/dL Total Bilirubin 0.1 L (0.2-1.3) mg/dL Conjugated Bilirubin 0.0 (0.0-0.3) md/dL Unconjugated Bilirubin 0.0 (0.0-1.1) mg/dL AST 36 (17-59) IU/L ALT 22 (<50) IU/L Alkaline Phosphatase 59 (38-126) U/L Total Protein 6.8 (6.3-8.2) g/dL Albumin 3.7 (3.5-5.0) g/dL Globulin 3.1 (1.7-4.1) g/dL Albumin/Globulin Ratio 1.2 (1.0-2.8) Salicylates < 1.0 (<20) mg/dL Acetaminophen < 10 (10-30) ug/mL Ethyl Alcohol 378 H ( - 10) mg/dL MDM Narrative Medical decision making narrative: Patient signed out to me by Dr. Rg. Patient is well-known to myself and this facility multiple other facilities. Well-known alcoholic. He was intubated yesterday for airway protection and severe alcohol intoxication. This is not uncommon for him. He has been intubated multiple times. Frequently after extubation he leaves against medical advice. He has been sent to many detox centers multiple times. He does well while at detox however once relieved he is on able to maintain sobriety. Presents today with alcohol intoxication. 2044-patient is caught smoking in the hallway in the emergency department. He has a steady gait and patient is discharged Discharge Plan Departure Patient Disposition: Home Clinical Impression: Alcohol abuse Instructions: DI for Alcohol Use Disorder Activity Restrictions/Additional Instructions: *You have been diagnosed with alcohol abuse *Continue to take medications as directed *Follow up with your primary care provider in 2-3 days or call [phone] *Return to ER if you should have any new, worsening or concerning symptoms Prescriptions: No Action clonidine HCl 0.1 mg tablet 0.1 mg PO BEDTIME sertraline 100 mg tablet 150 mg PO DAILY lamotrigine 25 mg tablet 25 mg PO BID buspirone 15 mg tablet 15 mg PO BID PRN (Reason: Anxiety) pregabalin 75 mg capsule 75 mg PO BID Referrals: Miscellaneous,Doctor, MD [Primary Care Provider] - Visit Report Forms: Patient Portal/API
[2022-05-02 17:54] LABS: Add Manual Diff / Slide Review NO; Basophils Absolute Auto 100 /uL (0-100); Basophils Percent Auto 0.8 % (0-2); Eosinophils Absolute Auto 0 /uL (0-450); Eosinophils Percent Auto 0.1 % (2-4); Hematocrit 36.6 % (41-53); Hemoglobin 12.4 g/dL (13.5-17.5); Lymphocytes Absolute Auto 2100 /uL (1100-4500); Lymphocytes Percent Auto 26.2 % (25-40); Mean Corpuscular HGB Conc 33.8 % (30-36); Mean Corpuscular Hemoglobin 29.7 PG (26-34); Mean Corpuscular Volume 87.9 fL (80-100); Monocytes Absolute Auto 400 /uL (0-900); Neutrophils Absolute Auto 5300 /uL (1500-7000); Neutrophils Percent Auto 67.9 % (50-75); Platelet Count 147 X10^3/uL (150-400); Red Blood Cell Count 4.17 X10^6/uL (4.5-5.9); Red Cell Distribution Width 15.6 % (11.6-14.8); White Blood Cell Count 7.8 X10^3/uL (4.5-11.0)
[2022-05-02] MEDS: SODIUM CHLORIDE 0.9% 1,000 ML 150 ML IV (17:54)
--- NOTE | 2022-05-02 17:57 | PC.NURSE ---
Medics report their crew RSI patient last night. Patient was admitted at [facility]. Patient found unresponsive on bus with ETOH in hand. Patient responsive to sternal rub. Maintaining airway.
[2022-05-02 18:04] LABS: Lactate (Lactic Acid) 2.5 mmol/L (0.7-2.1)
[2022-05-02 18:06] LABS: Acetaminophen < 10 ug/mL (10-30); Alanine Aminotransferase 22 IU/L (<50); Albumin 3.7 g/dL (3.5-5.0); Albumin Globulin Ratio 1.2 (1.0-2.8); Alkaline Phosphatase 59 U/L (38-126); Aspartate Aminotransferase 36 IU/L (17-59); BUN Creatinine Ratio 24.3 (6-22); Bilirubin Total 0.1 mg/dL (0.2-1.3); Blood Urea Nitrogen 17 mg/dL (9-20); Calcium 7.7 mg/dL (8.4-10.2); Carbon Dioxide 24 mmol/L (22-32); Chloride 110 mmol/L (98-107); Estimated Glomerular Filt Rate > 60 mL/min (>60); Globulin 3.1 g/dL (1.7-4.1); Glucose 84 mg/dL (70-100); Potassium 3.5 mmol/L (3.4-5.1); Salicylate < 1.0 mg/dL (<20); Sodium 148 mmol/L (137-145); Total Protein 6.8 g/dL (6.3-8.2)
[2022-05-02 18:12] LABS: Ethanol (ETOH) 378 mg/dL; HEMOLYSIS 22 (0-50)
[2022-05-02 19:56] LABS: Reflexed Lactate in 2 Hours Y
--- NOTE | 2022-05-02 20:34 | PC.NURSE ---
Pt is awake and speaking with this RN. Pt requesting food and a tv. Pt is oriented to self but does not know where he is or what time of day it is. This RN oriented pt. Pt denies SI/HI.
--- NOTE | 2022-05-02 22:23 | PC.NURSE ---
Addendum entered by Mckayla Gerard R.N. 05/02/22 22:28: This event occurred at 2049. Not 2149. Original Note: 2149: Pt found ambulating around the room with a steady gait smoking a cigarette. Pt informed of the no smoking policy and showed no remorse for breaking hospital policy and responds by asking for more food. Pt was asked to get dressed and given his discharge paperwork and instructions. Pt walks out of departmetn with steady gait with all of his belongings and IV has been removed.
== END 2022-05-02 20:50 | disposition home or self-care (01) ==
PROVIDERS: Emergency Medicine; Emergency Provider Emergency Medicine
DX: F10.129 Alcohol abuse with intoxication, unspecified (principal); Y90.8 Blood alcohol level of 240 mg/100 ml or more
CPT/HCPCS: 36415; 80053; 80076; 80320; 80329; 83605; 85025; 99283; 99284; G0480

== ENCOUNTER 2022-05-06 11:48 | Inpatient (IN) | payer OTHER, MEDICAID, SELFPAY ==
[2021-07-26 09:14] VITALS: PULSE 51; RESP 16; O2SAT 98
[2021-07-26 10:17] VITALS: RESP 15
[2022-03-15 21:17] VITALS: BMI 22.7
[2022-05-06] VITALS (68 sets, daily range): BP systolic 90–136; BP diastolic 50–93; PULSE 84–131; RESP 19–33; TEMP 36.4–37.1; O2SAT 85–100
--- NOTE | 2022-05-06 11:50 | DI.CT.S_ITS ---
PROCEDURE: CT HEAD/BRAIN WO CON INDICATIONS: unresponsive, TECHNIQUE: Noncontrast 4.5 mm thick angled axial sections acquired from the foramen magnum to the vertex, with coronal and sagittal reformats. For radiation dose reduction, the following was used: automated exposure control, adjustment of mA and/or kV according to patient size. COMPARISON: [facility], CT, CT HEAD/BRAIN WO CON, 03/31/2022, 12:49. FINDINGS: Image quality: Excellent. CSF spaces: Basal cisterns are patent. No extra-axial fluid collections. Ventricles are normal in size and shape. Brain: No midline shift. No intracranial masses or hemorrhage. Dey-white matter interface is normal. Skull and face: Calvarium and visualized facial bones are intact, without suspicious lesions. Sinuses: Visualized sinuses and mastoids are clear. IMPRESSION: No CT evidence of acute intracranial abnormalities. No significant changes from previous study. Dictated by: Addy Alex M.D. on 05/06/2022 at 12:35 Approved by: Addy Alex M.D. on 05/06/2022 at 12:36
--- NOTE | 2022-05-06 11:53 | DI.RAD.S_ITS ---
PROCEDURE: XR CHEST 1V INDICATIONS: altered mental status TECHNIQUE: One view of the chest was acquired. COMPARISON: [facility], CR, XR CHEST 1V, 03/30/2022, 20:05. FINDINGS: Surgical changes and devices: None. Lungs and pleura: Mild pulmonary vascular congestion is seen. No pleural effusions or pneumothorax. Mediastinum: Mediastinal contours appear normal. Heart size is normal. Bones and chest wall: No suspicious bony lesions. Overlying soft tissues appear unremarkable. IMPRESSION: Mild congestion. No definite focal infiltrate, pleural effusion or pneumothorax. Dictated by: Addy Alex M.D. on 05/06/2022 at 12:04 Approved by: Addy Alex M.D. on 05/06/2022 at 12:05
--- NOTE | 2022-05-06 11:54 | DI.CT.S_ITS ---
PROCEDURE: CT CERVICAL SPINE WO CON INDICATIONS: fall TECHNIQUE: Noncontrast 3 mm thick sections acquired from the skull base to the T4 level. Sagittal and coronal reformats were then constructed. For radiation dose reduction, the following was used: automated exposure control, adjustment of mA and/or kV according to patient size. COMPARISON: [facility], CT, CT CERVICAL SPINE WO CON, 03/30/2022, 19:38. FINDINGS: Image quality: Excellent. Bones: No fractures or dislocations. Visualized superior ribs are intact. Soft tissues: Prevertebral soft tissues are normal in thickness. ETT tip is above the matthew. No paravertebral hematomas. No apical pneumothoraces. IMPRESSION: 1. No acute cervical spine fracture or dislocation. 2. No gross paraspinous soft tissue abnormalities. Patient is intubated. Dictated by: Addy Alex M.D. on 05/06/2022 at 12:36 Approved by: Addy Alex M.D. on 05/06/2022 at 12:37
[2022-05-06 12:11] LABS: Add Manual Diff / Slide Review NO; Basophils Absolute Auto 200 /uL (0-100); Basophils Percent Auto 1.6 % (0-2); Eosinophils Absolute Auto 0 /uL (0-450); Hematocrit 37.9 % (41-53); Hemoglobin 12.7 g/dL (13.5-17.5); Lymphocytes Absolute Auto 4700 /uL (1100-4500); Lymphocytes Percent Auto 46.8 % (25-40); Mean Corpuscular HGB Conc 33.5 % (30-36); Mean Corpuscular Hemoglobin 29.6 PG (26-34); Mean Corpuscular Volume 88.4 fL (80-100); Monocytes Absolute Auto 300 /uL (0-900); Monocytes Percent Auto 3.3 % (3-14); Neutrophils Absolute Auto 4900 /uL (1500-7000); Neutrophils Percent Auto 48.3 % (50-75); Platelet Count 191 X10^3/uL (150-400); Red Blood Cell Count 4.29 X10^6/uL (4.5-5.9); Red Cell Distribution Width 16.6 % (11.6-14.8); White Blood Cell Count 10.1 X10^3/uL (4.5-11.0)
[2022-05-06 12:18] LABS: Lactate (Lactic Acid) 2.8 mmol/L (0.7-2.1)
[2022-05-06 12:21] LABS: Alanine Aminotransferase 22 IU/L (<50); Albumin 4.2 g/dL (3.5-5.0); Albumin Globulin Ratio 1.2 (1.0-2.8); Alkaline Phosphatase 81 U/L (38-126); Aspartate Aminotransferase 30 IU/L (17-59); Bilirubin Total 0.4 mg/dL (0.2-1.3); Blood Urea Nitrogen 11 mg/dL (9-20); Calcium 8.3 mg/dL (8.4-10.2); Carbon Dioxide 25 mmol/L (22-32); Chloride 106 mmol/L (98-107); Estimated Glomerular Filt Rate > 60 mL/min (>60); Globulin 3.4 g/dL (1.7-4.1); Glucose 117 mg/dL (70-100); HEMOLYSIS < 15 (0-50); Potassium 3.9 mmol/L (3.4-5.1); Sodium 146 mmol/L (137-145); Total Protein 7.6 g/dL (6.3-8.2)
[2022-05-06 12:22] LABS: Lipase 156 U/L (23-300)
--- NOTE | 2022-05-06 12:32 | PC.NURSE ---
Pt arrived by wheelchair to room, assisted by x3 staff to bed. Pt opens eyes to loud voice, does not maintain contact. Pupils 3mm, equal and reactive. Pt protecting airway, vomit noted on clothing, RT assisted to suction pt. Once laid down pt making snoring sound and saturations briefly dropped to 70's, nasal trumpet inserted into left nare without issue and pt saturations increased to 100%, on 4L NC. Pt breathing even and unlabored. Vomit noted on pt clothing. Pt has small laceration to left eyebrow, bleeding controlled. Pt not following commands, skin warm and dry. Capillary refill less than 2, no JVD noted.
[2022-05-06 12:42] LABS: Ethanol (ETOH) 491 mg/dL
--- NOTE | 2022-05-06 13:03 | PC.NURSE ---
Pt continues breathing even and unlabored no gurgling noted. Seizure pads applied as precaution.
[2022-05-06 13:53] LABS: COVID19 -Nasal RAPID Negative (Negative)
[2022-05-06 13:59] LABS: Appearance Urine UA CLEAR; Bilirubin Urine UA NEGATIVE (NEGATIVE); Color Urine UA YELLOW; Glucose Urine UA NEGATIVE (Negative); Ketones Urine UA NEGATIVE (NEGATIVE); Leukocyte Esterase Urine UA NEGATIVE (NEGATIVE); Nitrite Urine UA NEGATIVE (Negative); Occult Blood Urine UA NEGATIVE (Negative); Protein Urine UA NEGATIVE (Negative); Specific Gravity Urine UA <=1.005 (1.000-1.035); Urobilinogen Urine UA 0.2 E.U./dL (0.2); pH Urine UA 5.5 (4.5-8.0)
[2022-05-06 14:05] LABS: Reflexed Lactate in 2 Hours Y
[2022-05-06 14:17] LABS: UR Morphine/Opiate cutoff 300 Negative (Negative); Ur Creatinine Normal (Normal); Ur Specific Gravity Normal (Normal); Urine Amphetamines Negative (Negative); Urine Barbiturates Negative (Negative); Urine Benzodiazepines Negative (Negative); Urine Cocaine Negative (Negative); Urine MDMA Negative (Negative); Urine Methadone Negative (Negative); Urine Methamphetamines Negative (Negative); Urine Oxycodone Negative (Negative); Urine Phencyclidine Negative (Negative); Urine Tetrahydrocannabinol Negative (Negative); Urine Tricyclic Antidepressant Negative (Negative); Urine pH Normal (Normal)
[2022-05-06 14:19] LABS: Bacteria Urine None Seen; RBC Urine None Seen (0-5/HPF); WBC Urine None Seen (0-5/HPF)
[2022-05-06] MEDS: SODIUM CHLORIDE 0.9% 1,000 ML 1000 ML IV ×2 (15:15→15:40)
--- NOTE | 2022-05-06 15:19 | PC.NURSE ---
Addendum entered by Alissa Almanzar R.N. 05/06/22 15:25: Pt not following verbal commands but reacting to painful stimuli and noted to intermittently be moving head and moving feet. Original Note: Pt with eyes closed, independently repositioned head. Pt noted to have increased labor and rate of breathing, heart rate increased to 125, and temperature increasing. Dr. Hopkins notified and at bedside assessing pt, new orders received.
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
[2022-05-06 15:38] LABS: Lactate 2HR (Lactic Acid Rflx) 1.8 mmol/L (0.7-2.1)
--- NOTE | 2022-05-06 16:17 | CM.SWNOTE ---
Addendum entered by KANDI Membreno 05/06/22 18:31: SW attempted to do Zoom with pt and DCR but pt was unarousable. TRAY García reports that he believes pt meets criteria for hold and is currently looking for a bed at [facility] in [place]. Ricky is not sure that pt will be accepted due to high etoh level and unresponsiveness. Ricky will call back with updates. KANDI Membreno Addendum entered by KANDI Membreno 05/06/22 17:28: SW reviewed pt's record and notes that pt has been in ED for similar complaint ten times in the last two weeks. In march, pt presented to ED with ETOH intoxications the following dates with the following ETOH levels: 03/30/22 with an ETox level of 277, 03/31/22 with an ETox level of 294, 04/01/22 with an Etox level of 335, 05/02/22 with an Etox level of 378 and today, 05/06/22 with an etox level of 491. SW does not have alcohol levels for visits to [facility] on 05/05, 05/04, or 05/03. SW discussed case with TRAY García and faxed clinicals to [phone]. KANDI Membreno Original Note: ED SW Note Patient is 32 y/o male who presents to the ED mulitple times within the last week due to concern for ETOH intoxication and withdrawals. Patient has a hx of approx 29 ED visits within the last 12 months related to his ETOH use. It is the opinion of this MAIL ROOM CLERK that patient is a danger to himself and others due to his consistent ETOH use and demonstrated behavior in this ED. MAIL ROOM CLERK reviews patient with ED provider and it is the opinion of this MAIL ROOM CLERK that patient is appropriate for [facility] [employer] placement. MAIL ROOM CLERK to seek DCR evaluation and dispatch DCR upon medical clearance. ED provider Dr. Hopkins indicates agreement and understanding. KANDI Membreno
--- NOTE | 2022-05-06 16:18 | PC.NURSE ---
Pt insisted to ambulate to bathroom, educated on pending scans and possibility of injury, pt refused assistance or wheelchair and ambulated with unsteady limp.
--- NOTE | 2022-05-06 17:08 | PC.NURSE ---
Pt repositioning self intermittently, opened eyes to voice. Dr. Hopkins notified. Nasal trumpet removed.
[2022-05-06] MEDS: SODIUM CHLORIDE 0.9% 1,000 ML 125 ML IV (18:12)
--- NOTE | 2022-05-06 19:25 | PC.NURSE ---
Pt laying in stretcher with eyes closed, opens spontaneously intermittently. Pt breathing even and unlabored, pt removed co2 monitoring. Pt repositioning self around stretcher. Skin is pink, warm, dry.
--- NOTE | 2022-05-06 19:50 | PC.NURSE ---
Observed pt sitting up in bed, attempted to orient pt to hospital setting and update on care, pt made retching noise, asked pt if he felt he was going to throw up to which pt stated a lot. Assisted pt to turn and held barf bag, no vomit, suctioned pt mouth. Pt repositioned self and closed eyes again.
--- NOTE | 2022-05-06 20:35 | PC.NURSE ---
Pt sitting up, updated pt on current plan of care, pt repositioned self on stretcher and laid back down. Pt requesting water, oral swab provided. Pt attempted to pull at murphy catheter, educated pt on mechanism of catheter and pt stopped. Pt obeying commands.
--- NOTE | 2022-05-06 21:02 | PC.NURSE ---
Noted movement on telemetry and rounded on pt to find pt reaching over stretcher railings with one hand on the ground attempting to grab an empty fallen water cup. Verbally told the pt to stop, assisted pt back in stretcher and attempted to educate pt on risk for injury. Provided pt water within reach. Pt frequently attempting to get out of stretcher. Pt attempted to pull out murphy catheter again, stopped pt and removed catheter. Assisted into brief. Pt with call horn in reach. Also noted pt to have torn cord to pulse oximeter, new pulse oximeter applied and pt educated on indications.
[2022-05-06 21:12] LABS: Ethanol (ETOH) 433 mg/dL
[2022-05-06] MEDS: LORazepam 2 MG/ML INJ 1 MG IV (21:29)
--- NOTE | 2022-05-06 21:34 | PC.NURSE ---
Pt stood up in bed attempting to walk stating I want a meal tray. Left AC IV noted to be pulled out and SPO2 monitor ripped off finger. Pt initially uncooperative to lay in back, re-educated pt on plan of care and ensured safety in the ER. Pt repositioned self. Gingerale provided per request and sandwich.
[2022-05-06] MEDS: LORazepam 2 MG/ML INJ ×2 (21:44→22:33)
--- NOTE | 2022-05-06 21:46 | PC.NURSE ---
Pt states I feel like I'm going to have a seizure, pt eyes rolled to back of head and pt unresponsive, Dr. Gandhi called to bedside.
[2022-05-06] MEDS: ONDANSETRON 4 MG/2 ML INJ IV (21:49)
[2022-05-06] MEDS: PHENobarbital 65 MG/ML VIAL 260 MG IV (21:54)
--- NOTE | 2022-05-06 22:10 | PC.NURSE ---
Pt requesting tv, informed pt there is no tv. Pt repeatedly attempting to get out of bed, requiring x2 staff members to hold him, pt sways while standing. Pt requesting drinks and repeatedly educated on recent vomitting and risk for aspiration.
--- NOTE | 2022-05-06 22:30 | PC.NURSE ---
At 2222 pt eyes rolled back to head and started having a seizure-like activity, lasted approximately 1 minutes, pt woke during suctioning, then laid back down and had a second seizure-like activity. RT at bedside assisting with suction, pt turned to right side. Dr. Gandhi called to bedside and new orders received.
[2022-05-06] MEDS: PHENobarbital 65 MG/ML VIAL 130 MG IV (22:46)
--- NOTE | 2022-05-06 23:30 | PC.NURSE ---
Report received - assumed care of pt at this time - no further seizure activity - eyes closed
[2022-05-07] VITALS (23 sets, daily range): BP systolic 98–163; BP diastolic 54–89; PULSE 73–120; RESP 9–31; O2SAT 90–99
--- NOTE | 2022-05-07 00:10 | PC.NURSE ---
In to bedside to medicate pt for further seizure control - asleep with respirations equal and unlabored bilaterally - no seizure activity
[2022-05-07] MEDS: PHENobarbital 65 MG/ML VIAL 130 MG IV ×2 (00:13→06:01)
--- NOTE | 2022-05-07 00:45 | PC.NURSE ---
resting quietly in NAD - airway patent - PWD with respirations equal and unlabored bilaterally - no seizure activity noted
--- NOTE | 2022-05-07 01:15 | PC.NURSE ---
no changes in pt status at this time - no seizure activity noted
--- NOTE | 2022-05-07 01:56 | PC.NURSE ---
Hospitalist at bedside - pt asleep with respirations equal and unlabored bilaterally - VSS
--- NOTE | 2022-05-07 02:30 | PC.NURSE ---
Continues to sleep without concern - VSS - PWD with respirations equal and unlabored bilaterally - no seizure activity
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
--- NOTE | 2022-05-07 02:40 | PC.NURSE ---
The patient is found awake and standing at the edge of the bed - slightly unstable - asking for water and gingerale - assisted back to bed
--- NOTE | 2022-05-07 02:45 | PC.NURSE ---
given ice chips but continuously attempting to get out of bed - grabs ice chips and tries to fill it in the sink - still not completely steady on his feet - explained that the patient is to stay in bed and that he can have some ice chips only per the MD to protect his airway in case he sizes and/or aspirates d/t his previous seizure/vomiting episode - not able to redirect the patient - persistently fighting against the RN to get out of bed and get his clothes to leave - 2 RN's at bedside to assist with the pt returning to the bed
[2022-05-07 02:47] LABS: Magnesium 1.5 mg/dL (1.6-2.3)
[2022-05-07] MEDS: LORazepam 2 MG/ML INJ IV (03:00)
--- NOTE | 2022-05-07 03:00 | PC.NURSE ---
Attempts to get up - bolts down the hallway to the bathroom - able to ambulate unassisted but not completely stable on his feet - MD fallon
--- NOTE | 2022-05-07 03:15 | PC.NURSE ---
Behavior continues - runs down the [place] to the bathroom again - continues to be unstable
[2022-05-07] MEDS: PHENobarbital 130 MG/ML VIAL IV (03:40)
--- NOTE | 2022-05-07 03:45 | PC.NURSE ---
In to medicate pt at this time and his behavior continues to escalate and he attempts to get up and leave - hospitalist aware of behavior
--- NOTE | 2022-05-07 04:05 | PC.NURSE ---
Lab at bedside - blood drawn from the IV by the RN and given to lab - tolerated well - pt sleepy at this time
[2022-05-07 04:27] LABS: Add Manual Diff / Slide Review NO; Basophils Absolute Auto 0 /uL (0-100); Basophils Percent Auto 0.5 % (0-2); Eosinophils Absolute Auto 0 /uL (0-450); Eosinophils Percent Auto 0.1 % (2-4); Hemoglobin 10.4 g/dL (13.5-17.5); Lymphocytes Absolute Auto 1400 /uL (1100-4500); Lymphocytes Percent Auto 21.6 % (25-40); Mean Corpuscular HGB Conc 33.5 % (30-36); Mean Corpuscular Hemoglobin 29.7 PG (26-34); Mean Corpuscular Volume 88.8 fL (80-100); Monocytes Absolute Auto 400 /uL (0-900); Monocytes Percent Auto 6.3 % (3-14); Neutrophils Absolute Auto 4700 /uL (1500-7000); Neutrophils Percent Auto 71.5 % (50-75); Platelet Count 111 X10^3/uL (150-400); Red Blood Cell Count 3.49 X10^6/uL (4.5-5.9); Red Cell Distribution Width 16.5 % (11.6-14.8); White Blood Cell Count 6.5 X10^3/uL (4.5-11.0)
--- NOTE | 2022-05-07 04:30 | PC.NURSE ---
Resting quietly with eyes closed - no longer fighting against the RN - quietly lying on the stretcher - sitter at bedside
[2022-05-07 04:33] LABS: Ammonia (NH3) < 9 umol/L (9-30)
[2022-05-07 04:34] LABS: BUN Creatinine Ratio 27.7 (6-22); Blood Urea Nitrogen 13 mg/dL (9-20); Calcium 7.3 mg/dL (8.4-10.2); Carbon Dioxide 24 mmol/L (22-32); Chloride 106 mmol/L (98-107); Estimated Glomerular Filt Rate > 60 mL/min (>60); Glucose 87 mg/dL (70-100); HEMOLYSIS 21 (0-50); Magnesium 1.4 mg/dL (1.6-2.3); Potassium 3.7 mmol/L (3.4-5.1); Sodium 140 mmol/L (137-145)
[2022-05-07 04:35] LABS: INR 1.1 (0.9-1.3); Prothrombin Time 12.9 SECONDS (10.1-12.7)
--- NOTE | 2022-05-07 05:00 | PC.NURSE ---
Awakens at this time - given ice chips - sitter at bedside
--- NOTE | 2022-05-07 05:30 | PC.NURSE ---
Awakens and asks for food - given ice chips - attempts to get out of bed - sitter at bedside - difficult to redirect - wants to leave - continues to remain unsteady
[2022-05-07 05:57] LABS: Ethanol (ETOH) 166 mg/dL
--- NOTE | 2022-05-07 06:00 | PC.NURSE ---
In to bedside to medicate pt at this time - continues to want to leave - attempts to stand - still unsteady on feet
--- NOTE | 2022-05-07 06:30 | PC.NURSE ---
Attempting to pace around room - still remains slightly unsteady - asked to get back in the bed for safety - sitter at bedside
--- NOTE | 2022-05-07 06:58 | PC.NURSE ---
Addendum entered by Deana Lombardo R.N. 05/07/22 07:00: No seizure activity noted Original Note: Resting quietly in NAD - no needs voiced - PWD with respirations equal and unlabored bilaterally - sitter at bedside
--- NOTE | 2022-05-07 07:16 | PC.NURSE ---
report to dayshift RN team
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
== END 2022-05-07 09:00 | disposition left against medical advice (07) | DRG 770 ==
LOC: ED 18:23 → AC 05-07 04:31
PROVIDERS: Emergency Medicine; Admitting Provider Nurse Practitioner Family; Emergency Provider Emergency Medicine; Referring Provider Emergency Medicine; Visit Provider Nurse Practitioner Family
DX: F10.139 Alcohol abuse with withdrawal, unspecified (principal); G40.89 Other seizures; Y90.8 Blood alcohol level of 240 mg/100 ml or more; F17.200 Nicotine dependence, unspecified, uncomplicated; F32.A Depression, unspecified; Z20.822 Contact with and (suspected) exposure to COVID-19; Z53.29 Procedure and treatment not carried out because of patient's decision for other reasons
CPT/HCPCS: 36415; 70450; 71045; 72125; 80048; 80053; 80305; 80320; 80329; 81001; 81003; 82140; 82550; 82553; 82962; 83605; 83690; 83735; 84484; 85025; 85610; 87635; 93005; 96365; 96372; 96375; 96376; 99285; 99291; C9803; G0480; J1200; J2060; J2405; J2560

== ENCOUNTER 2022-05-07 11:28 | Emergency (ER) | payer OTHER, MEDICAID, SELFPAY ==
[2021-07-26 09:14] VITALS: PULSE 51; RESP 16; O2SAT 98
[2021-07-26 10:17] VITALS: RESP 15
[2022-03-15 21:17] VITALS: BMI 22.7
[2022-05-07 11:38] VITALS: BP 117/65; PULSE 76; RESP 18; TEMP 36.6; O2SAT 100
[2022-05-07 11:44] LABS: Add Manual Diff / Slide Review NO; Basophils Absolute Auto 0 /uL (0-100); Basophils Percent Auto 0.3 % (0-2); Eosinophils Absolute Auto 0 /uL (0-450); Eosinophils Percent Auto 0.1 % (2-4); Hematocrit 31.5 % (41-53); Hemoglobin 10.5 g/dL (13.5-17.5); Lymphocytes Absolute Auto 1000 /uL (1100-4500); Lymphocytes Percent Auto 16.9 % (25-40); Mean Corpuscular HGB Conc 33.4 % (30-36); Mean Corpuscular Hemoglobin 29.8 PG (26-34); Mean Corpuscular Volume 89.1 fL (80-100); Monocytes Absolute Auto 600 /uL (0-900); Monocytes Percent Auto 9.9 % (3-14); Neutrophils Absolute Auto 4500 /uL (1500-7000); Neutrophils Percent Auto 72.8 % (50-75); Platelet Count 116 X10^3/uL (150-400); Red Blood Cell Count 3.53 X10^6/uL (4.5-5.9); Red Cell Distribution Width 15.8 % (11.6-14.8); White Blood Cell Count 6.2 X10^3/uL (4.5-11.0)
[2022-05-07 11:58] LABS: Acetaminophen < 10 ug/mL (10-30); Alanine Aminotransferase 22 IU/L (<50); Albumin 3.9 g/dL (3.5-5.0); Albumin Globulin Ratio 1.3 (1.0-2.8); Alkaline Phosphatase 70 U/L (38-126); Aspartate Aminotransferase 37 IU/L (17-59); BUN Creatinine Ratio 22.9 (6-22); Bilirubin Total 0.8 mg/dL (0.2-1.3); Blood Urea Nitrogen 11 mg/dL (9-20); Calcium 8.2 mg/dL (8.4-10.2); Carbon Dioxide 25 mmol/L (22-32); Chloride 99 mmol/L (98-107); Creatine Kinase 135 U/L (55-170); Estimated Glomerular Filt Rate > 60 mL/min (>60); Ethanol (ETOH) 298 mg/dL; Glucose 98 mg/dL (70-100); HEMOLYSIS < 15 (0-50); Lactate (Lactic Acid) 3.4 mmol/L (0.7-2.1); Potassium 3.7 mmol/L (3.4-5.1); Salicylate < 1.0 mg/dL (<20); Sodium 139 mmol/L (137-145); Total Protein 6.9 g/dL (6.3-8.2)
[2022-05-07] MEDS: LORazepam 2 MG/ML INJ IV ×2 (11:59→15:02)
[2022-05-07 12:08] LABS: Troponin I < 0.012 ng/mL (0.01-0.034)
[2022-05-07 12:12] LABS: CKMB % Relative Index 0.9 % (1.5-5.0); Creatine Kinase MB 1.28 ng/mL (<2.37)
[2022-05-07] MEDS: PHENobarbital 65 MG/ML VIAL IV (12:31)
[2022-05-07] MEDS: SODIUM CHLORIDE 0.9% 1,000 ML 150 ML IV (12:32)
[2022-05-07] MEDS: THIAMINE 200 MG in SODIUM CHLORIDE 0.9% 100 ML 408 MG IV (12:32)
--- NOTE | 2022-05-07 12:40 | PC.NURSE ---
pt urinated while changing bedding
--- NOTE | 2022-05-07 13:19 | PC.NURSE ---
pt is sleeping
[2022-05-07 13:22] VITALS: BP 114/70; PULSE 88; RESP 21; O2SAT 96
[2022-05-07 13:39] LABS: Reflexed Lactate in 2 Hours Y
[2022-05-07 13:52] VITALS: BP 109/65; PULSE 87; RESP 21; O2SAT 94
--- NOTE | 2022-05-07 13:59 | ED.ALCOHOL ---
HPI - Alcohol <Katiana Hopkins DO - Last Filed: 05/09/22 06:48> General Chief Complaint: Toxicology Problem Stated Complaint: unresponsive Time Seen by Provider: 05/07/22 11:33 Source: EMS Mode of arrival: EMS History of Present Illness HPI narrative: Patient is a 32-year-old male history of severe alcohol abuse. He has frequent admissions to hospitals and frequent intubation. He was seen evaluated here last night after his mother dropped him off completely unresponsive. He then proceeded to have 2 alcohol withdrawal seizures. He was admitted to the hospitalist he woke up this morning. There was talk of Rashad's Law however patient was not necessarily medically cleared at that time so DCR could not get involved patient became ambulatory left against medical advice. Couple hours later patient returns by EMS for being passed out at [email or web address]. He had a bottle of vodka and hand heart doctor. It is clear that patient is escalating his alcohol use. He does not care. It is quite cold outside under 20? F he drinks until he passes out frequently. Related Data Home Medications Medication Instructions Recorded Confirmed buspirone 15 mg tablet 15 mg PO BID PRN Anxiety 03/31/22 03/31/22 clonidine HCl 0.1 mg tablet 0.1 mg PO BEDTIME 03/31/22 03/31/22 lamotrigine 25 mg tablet 25 mg PO BID 03/31/22 03/31/22 pregabalin 75 mg capsule 75 mg PO BID 03/31/22 03/31/22 sertraline 100 mg tablet 150 mg PO DAILY 03/31/22 03/31/22 Allergies Allergy/AdvReac Type Severity Reaction Status Date / Time shrimp [SHRIMP] Allergy Severe THROAT Verified 05/02/22 17:34 SWELLING/HIVES diazepam [From VALIUM] Allergy Intermediate LEG Verified 05/02/22 17:34 SWELLING haloperidol [From HALDOL] Allergy Unknown DYSTONIA Verified 05/02/22 17:34 naproxen [NAPROXEN] AdvReac Mild NAUSEA/GI Verified 05/02/22 17:34 DISTRESS Review of Systems <DO Laisha Iqbal Last Filed: 05/09/22 06:48> Review of Systems ROS Unobtainable: Unobtainable due to mental condition Patient History <DO Laisha Iqbal Last Filed: 05/09/22 06:48> Medical History Alcoholism Depression Eating disorder Epilepsy Low back pain Surgical History History of ankle surgery Family History Grandfather Type 2 diabetes mellitus without complication, unspecified detention insulin use status Grandmother Type 2 diabetes mellitus without complication, unspecified detention insulin use status Mother Uncomplicated asthma, unspecified asthma severity Sister Uncomplicated asthma, unspecified asthma severity Unknown No problems noted. Social History household members: spouse, family and children Smoking Status: Current every day smoker alcohol intake: current Smoking Status: Current every day smoker alcohol intake frequency: 3 or more drinks per day Alcohol type: hard liquor and other Substance Use Type: does not use Exam <DO Laisha Iqbal Last Filed: 05/09/22 06:48> Initial Vital Signs Initial Vital Signs: Vital Signs Temperature 97.9 F 05/07/22 11:38 Pulse Rate 76 05/07/22 11:38 Respiratory Rate 18 05/07/22 11:38 Blood Pressure 117/65 05/07/22 11:38 Pulse Oximetry 100 05/07/22 11:38 Oxygen Delivery Method 05/07/22 11:38 Gen.: Responsive to pain moaning following commands HEENT: No head trauma Neck: Supple Lungs: Clear bilaterally Cardiac: Mildly tachycardic regular Abdomen: Soft nontender Extremities no gross bony deformity Neurologic: Alert moving <David Geronimo DO - Last Filed: 05/09/22 04:57> Initial Vital Signs Initial Vital Signs: Vital Signs Temperature 97.9 F 05/07/22 11:38 Pulse Rate 76 05/07/22 11:38 Respiratory Rate 18 05/07/22 11:38 Blood Pressure 117/65 05/07/22 11:38 Pulse Oximetry 100 05/07/22 11:38 Oxygen Delivery Method 05/07/22 11:38 Course <DO Laisha Iqbal Last Filed: 05/09/22 06:48> Orders Ordered: Discontinued Medications Acetaminophen (Acetaminophen 325 Mg Tablet) 650 mg PO Q6HR PRN PRN Reason: Pain, Moderate (4-6) Stop: 05/11/22 16:04 Last Admin: 05/08/22 16:11 Dose: 650 mg Documented By: MARILYN Chlordiazepoxide HCl (Chlordiazepoxide 25 Mg Capsule) 50 mg PO Q6HR HOLGER Last Admin: 05/09/22 05:43 Dose: 50 mg Documented By: Admin: 05/09/22 00:08 Dose: 50 mg Documented By: Admin: 05/08/22 11:57 Dose: 50 mg Documented By: LENORA Diphenhydramine HCl (Diphenhydramine 50 Mg/Ml Vial) 50 mg IV NOW ONE Stop: 05/07/22 14:53 Last Admin: 05/07/22 15:02 Dose: 50 mg Documented By: MYRON Diphenhydramine HCl (Diphenhydramine 50 Mg/Ml Vial) 50 mg IM NOW ONE Stop: 05/07/22 21:49 Last Admin: 05/07/22 21:49 Dose: 50 mg Documented By: PRAVIN Diphenhydramine HCl (Diphenhydramine 50 Mg/Ml Vial) 50 mg IM NOW ONE Stop: 05/08/22 15:51 Last Admin: 05/08/22 16:12 Dose: 50 mg Documented By: MARILYN Sodium Chloride (Normal Saline 0.9%) 1,000 mls @ 150 mls/hr IV CONT HOLGER Last Infusion: 05/07/22 19:54 Dose: 0 mls/hr Documented By: Infusion: 05/07/22 16:35 Dose: 0 mls/hr Documented By: Admin: 05/07/22 12:32 Dose: 150 mls/hr Documented By: MYRON Thiamine HCl 200 mg/ Sodium (Chloride) 102 mls @ 408 mls/hr IV NOW ONE Stop: 05/07/22 11:39 Last Infusion: 05/07/22 12:51 Dose: 0 mls/hr Documented By: Admin: 05/07/22 12:32 Dose: 408 mls/hr Documented By: MYRON Ibuprofen (Ibuprofen 400 Mg Tablet) 400 mg PO Q8HR PRN PRN Reason: Pain, Moderate (4-6) Stop: 05/11/22 16:04 Last Admin: 05/08/22 16:11 Dose: 400 mg Documented By: MARILYN Lorazepam (Lorazepam 2 Mg/Ml Inj) 2 mg IV NOW ONE Stop: 05/07/22 11:49 Last Admin: 05/07/22 11:59 Dose: 2 mg Documented By: AT Lorazepam (Lorazepam 2 Mg/Ml Inj) 2 mg IV NOW ONE Stop: 05/07/22 14:53 Last Admin: 05/07/22 15:02 Dose: 2 mg Documented By: NR Lorazepam (Lorazepam 2 Mg/Ml Inj) 2 mg IM NOW ONE Stop: 05/07/22 21:48 Last Admin: 05/07/22 21:49 Dose: 2 mg Documented By: PRAVIN Lorazepam (Lorazepam 0.5 Mg Tablet) 2 mg PO NOW ONE Stop: 05/07/22 23:25 Last Admin: 05/08/22 00:36 Dose: 2 mg Documented By: EVER Lorazepam (Lorazepam 2 Mg/Ml Inj) 1 mg IM NOW ONE Stop: 05/08/22 15:51 Last Admin: 05/08/22 16:12 Dose: 1 mg Documented By: MARILYN Phenobarbital (Phenobarbital 65 Mg/Ml Vial) 65 mg IV Q6H [facility] Last Admin: 05/08/22 09:52 Dose: Not Given Documented By: Admin: 05/07/22 12:31 Dose: 65 mg Documented By: MYRON Phenobarbital (Phenobarbital 65 Mg/Ml Vial) 260 mg IV NOW ONE Stop: 05/07/22 14:53 Last Admin: 05/07/22 15:01 Dose: 260 mg Documented By: MYRON Phenobarbital (Phenobarbital 65 Mg/Ml Vial) 130 mg IM NOW ONE Stop: 05/08/22 11:51 Last Admin: 05/08/22 13:33 Dose: 130 mg Documented By: LENORA Phenobarbital (Phenobarbital 65 Mg/Ml Vial) 130 mg IM NOW ONE Stop: 05/08/22 13:14 Phenobarbital (Phenobarbital 65 Mg/Ml Vial) 260 mg IM NOW ONE Stop: 05/08/22 15:51 Last Admin: 05/08/22 16:20 Dose: 260 mg Documented By: LENORA Vital Signs Vital signs: Vital Signs - 8 hr 05/09/22 06:07 Temperature 98 F Pulse Rate 95 H Respiratory Rate 18 Blood Pressure 136/97 H Pulse Oximetry 100 Oxygen Delivery Method Room Air <David Geronimo DO - Last Filed: 05/09/22 04:57> Orders Ordered: Discontinued Medications Acetaminophen (Acetaminophen 325 Mg Tablet) 650 mg PO Q6HR PRN PRN Reason: Pain, Moderate (4-6) Stop: 05/11/22 16:04 Last Admin: 05/08/22 16:11 Dose: 650 mg Documented By: MARILYN Chlordiazepoxide HCl (Chlordiazepoxide 25 Mg Capsule) 50 mg PO Q6HR [facility] Last Admin: 05/09/22 05:43 Dose: 50 mg Documented By: Admin: 05/09/22 00:08 Dose: 50 mg Documented By: Admin: 05/08/22 11:57 Dose: 50 mg Documented By: LENORA Diphenhydramine HCl (Diphenhydramine 50 Mg/Ml Vial) 50 mg IV NOW ONE Stop: 05/07/22 14:53 Last Admin: 05/07/22 15:02 Dose: 50 mg Documented By: MYRON Diphenhydramine HCl (Diphenhydramine 50 Mg/Ml Vial) 50 mg IM NOW ONE Stop: 05/07/22 21:49 Last Admin: 05/07/22 21:49 Dose: 50 mg Documented By: PRAVIN Diphenhydramine HCl (Diphenhydramine 50 Mg/Ml Vial) 50 mg IM NOW ONE Stop: 05/08/22 15:51 Last Admin: 05/08/22 16:12 Dose: 50 mg Documented By: MARILYN Sodium Chloride (Normal Saline 0.9%) 1,000 mls @ 150 mls/hr IV CONT [facility] Last Infusion: 05/07/22 19:54 Dose: 0 mls/hr Documented By: Infusion: 05/07/22 16:35 Dose: 0 mls/hr Documented By: Admin: 05/07/22 12:32 Dose: 150 mls/hr Documented By: MYRON Thiamine HCl 200 mg/ Sodium (Chloride) 102 mls @ 408 mls/hr IV NOW ONE Stop: 05/07/22 11:39 Last Infusion: 05/07/22 12:51 Dose: 0 mls/hr Documented By: Admin: 05/07/22 12:32 Dose: 408 mls/hr Documented By: MYRON Ibuprofen (Ibuprofen 400 Mg Tablet) 400 mg PO Q8HR PRN PRN Reason: Pain, Moderate (4-6) Stop: 05/11/22 16:04 Last Admin: 05/08/22 16:11 Dose: 400 mg Documented By: MARILYN Lorazepam (Lorazepam 2 Mg/Ml Inj) 2 mg IV NOW ONE Stop: 05/07/22 11:49 Last Admin: 05/07/22 11:59 Dose: 2 mg Documented By: AT Lorazepam (Lorazepam 2 Mg/Ml Inj) 2 mg IV NOW ONE Stop: 05/07/22 14:53 Last Admin: 05/07/22 15:02 Dose: 2 mg Documented By: MYRON Lorazepam (Lorazepam 2 Mg/Ml Inj) 2 mg IM NOW ONE Stop: 05/07/22 21:48 Last Admin: 05/07/22 21:49 Dose: 2 mg Documented By: PRAVIN Lorazepam (Lorazepam 0.5 Mg Tablet) 2 mg PO NOW ONE Stop: 05/07/22 23:25 Last Admin: 05/08/22 00:36 Dose: 2 mg Documented By: EVER Lorazepam (Lorazepam 2 Mg/Ml Inj) 1 mg IM NOW ONE Stop: 05/08/22 15:51 Last Admin: 05/08/22 16:12 Dose: 1 mg Documented By: MARILYN Phenobarbital (Phenobarbital 65 Mg/Ml Vial) 65 mg IV Q6H [facility] Last Admin: 05/08/22 09:52 Dose: Not Given Documented By: Admin: 05/07/22 12:31 Dose: 65 mg Documented By: MYRON Phenobarbital (Phenobarbital 65 Mg/Ml Vial) 260 mg IV NOW ONE Stop: 05/07/22 14:53 Last Admin: 05/07/22 15:01 Dose: 260 mg Documented By: MYRON Phenobarbital (Phenobarbital 65 Mg/Ml Vial) 130 mg IM NOW ONE Stop: 05/08/22 11:51 Last Admin: 05/08/22 13:33 Dose: 130 mg Documented By: LENORA Phenobarbital (Phenobarbital 65 Mg/Ml Vial) 130 mg IM NOW ONE Stop: 05/08/22 13:14 Phenobarbital (Phenobarbital 65 Mg/Ml Vial) 260 mg IM NOW ONE Stop: 05/08/22 15:51 Last Admin: 05/08/22 16:20 Dose: 260 mg Documented By: LENORA Vital Signs Vital signs: Vital Signs - 8 hr 05/09/22 06:07 Temperature 98 F Pulse Rate 95 H Respiratory Rate 18 Blood Pressure 136/97 H Pulse Oximetry 100 Oxygen Delivery Method Room Air MDM - Alcohol <Katiana Hopkins, DO - Last Filed: 05/09/22 06:48> Lab Data Result diagrams: 05/07/22 11:33 05/07/22 11:33 Labs: Lab Results 05/07/22 05/07/22 05/07/22 Range/Units 11:33 11:33 11:33 WBC 6.2 (4.5-11.0) X10^3/uL RBC 3.53 L (4.5-5.9) X10^6/uL Hgb 10.5 L (13.5-17.5) g/dL Hct 31.5 L (41-53) % MCV 89.1 (80-100) fL MCH 29.8 (26-34) PG MCHC 33.4 (30-36) % RDW 15.8 H (11.6-14.8) % Plt Count 116 L (150-400) X10^3/uL Neut % (Auto) 72.8 (50-75) % Lymph % (Auto) 16.9 L (25-40) % [place] % (Auto) 9.9 (3-14) % Eos % (Auto) 0.1 L (2-4) % Baso % (Auto) 0.3 (0-2) % Neut # (Auto) 4500 (2480-2454) /uL Lymph # (Auto) 1000 L (4051-2960) /uL [place] # (Auto) 600 (0-900) /uL Eos # (Auto) 0 (0-450) /uL Baso # (Auto) 0 (0-100) /uL Sodium 139 (137-145) mmol/L Potassium 3.7 (3.4-5.1) mmol/L Chloride 99 (98-107) mmol/L Carbon Dioxide 25 (22-32) mmol/L BUN 11 (9-20) mg/dL Creatinine 0.48 L (0.66-1.25) mg/dL Estimated GFR > 60 (>60) mL/min BUN/Creatinine Ratio 22.9 H (6-22) Glucose 98 (70-100) mg/dL Lactate 3.4 H (0.7-2.1) mmol/L Calcium 8.2 L (8.4-10.2) mg/dL Total Bilirubin 0.8 (0.2-1.3) mg/dL AST 37 (17-59) IU/L ALT 22 (<50) IU/L Alkaline Phosphatase 70 (38-126) U/L Total Creatine Kinase 135 (55-170) U/L CK-MB (CK-2) 1.28 (<2.37) ng/mL CK-MB (CK-2) Rel Index 0.9 L (1.5-5.0) % Troponin I < 0.012 (0.01-0.034) ng/mL Total Protein 6.9 (6.3-8.2) g/dL Albumin 3.9 (3.5-5.0) g/dL Globulin 3.0 (1.7-4.1) g/dL Albumin/Globulin Ratio 1.3 (1.0-2.8) Salicylates < 1.0 (<20) mg/dL U Opiates 300ng/mL cut (Negative) Ur Oxycodone Screen (Negative) Urine Methadone Screen (Negative) Acetaminophen < 10 (10-30) ug/mL Ur Barbiturates Screen (Negative) U Tricyclic Antidepress (Negative) Ur Phencyclidine Scrn (Negative) Ur Amphetamines Screen (Negative) U Methamphetamines Scrn (Negative) Ur MDMA Scrn (Ecstasy) (Negative) U Benzodiazepines Scrn (Negative) Urine Cocaine Screen (Negative) U Marijuana (THC) Screen (Negative) Ethyl Alcohol 298 H ( - 10) mg/dL SARS-CoV-2 (PCR) (Negative) 05/07/22 05/07/22 05/07/22 Range/Units 12:25 14:40 15:54 WBC (4.5-11.0) X10^3/uL RBC (4.5-5.9) X10^6/uL Hgb (13.5-17.5) g/dL Hct (41-53) % MCV (80-100) fL MCH (26-34) PG MCHC (30-36) % RDW (11.6-14.8) % Plt Count (150-400) X10^3/uL Neut % (Auto) (50-75) % Lymph % (Auto) (25-40) % [place] % (Auto) (3-14) % Eos % (Auto) (2-4) % Baso % (Auto) (0-2) % Neut # (Auto) (3672-7025) /uL Lymph # (Auto) (3302-9148) /uL [place] # (Auto) (0-900) /uL Eos # (Auto) (0-450) /uL Baso # (Auto) (0-100) /uL Sodium (137-145) mmol/L Potassium (3.4-5.1) mmol/L Chloride (98-107) mmol/L Carbon Dioxide (22-32) mmol/L BUN (9-20) mg/dL Creatinine (0.66-1.25) mg/dL Estimated GFR (>60) mL/min BUN/Creatinine Ratio (6-22) Glucose (70-100) mg/dL Lactate 2.3 H (0.7-2.1) mmol/L Calcium (8.4-10.2) mg/dL Total Bilirubin (0.2-1.3) mg/dL AST (17-59) IU/L ALT (<50) IU/L Alkaline Phosphatase (38-126) U/L Total Creatine Kinase (55-170) U/L CK-MB (CK-2) (<2.37) ng/mL CK-MB (CK-2) Rel Index (1.5-5.0) % Troponin I (0.01-0.034) ng/mL Total Protein (6.3-8.2) g/dL Albumin (3.5-5.0) g/dL Globulin (1.7-4.1) g/dL Albumin/Globulin Ratio (1.0-2.8) Salicylates (<20) mg/dL U Opiates 300ng/mL cut Negative (Negative) Ur Oxycodone Screen Negative (Negative) Urine Methadone Screen Negative (Negative) Acetaminophen (10-30) ug/mL Ur Barbiturates Screen Positive H (Negative) U Tricyclic Antidepress Negative (Negative) Ur Phencyclidine Scrn Negative (Negative) Ur Amphetamines Screen Negative (Negative) U Methamphetamines Scrn Negative (Negative) Ur MDMA Scrn (Ecstasy) Negative (Negative) U Benzodiazepines Scrn Negative (Negative) Urine Cocaine Screen Negative (Negative) U Marijuana (THC) Screen Negative (Negative) Ethyl Alcohol 246 H ( - 10) mg/dL SARS-CoV-2 (PCR) (Negative) 05/07/22 05/08/22 Range/Units 17:34 18:15 WBC (4.5-11.0) X10^3/uL RBC (4.5-5.9) X10^6/uL Hgb (13.5-17.5) g/dL Hct (41-53) % MCV (80-100) fL MCH (26-34) PG MCHC (30-36) % RDW (11.6-14.8) % Plt Count (150-400) X10^3/uL Neut % (Auto) (50-75) % Lymph % (Auto) (25-40) % [place] % (Auto) (3-14) % Eos % (Auto) (2-4) % Baso % (Auto) (0-2) % Neut # (Auto) (7924-3369) /uL Lymph # (Auto) (0572-6063) /uL [place] # (Auto) (0-900) /uL Eos # (Auto) (0-450) /uL Baso # (Auto) (0-100) /uL Sodium (137-145) mmol/L Potassium (3.4-5.1) mmol/L Chloride (98-107) mmol/L Carbon Dioxide (22-32) mmol/L BUN (9-20) mg/dL Creatinine (0.66-1.25) mg/dL Estimated GFR (>60) mL/min BUN/Creatinine Ratio (6-22) Glucose (70-100) mg/dL Lactate (0.7-2.1) mmol/L Calcium (8.4-10.2) mg/dL Total Bilirubin (0.2-1.3) mg/dL AST (17-59) IU/L ALT (<50) IU/L Alkaline Phosphatase (38-126) U/L Total Creatine Kinase (55-170) U/L CK-MB (CK-2) (<2.37) ng/mL CK-MB (CK-2) Rel Index (1.5-5.0) % Troponin I (0.01-0.034) ng/mL Total Protein (6.3-8.2) g/dL Albumin (3.5-5.0) g/dL Globulin (1.7-4.1) g/dL Albumin/Globulin Ratio (1.0-2.8) Salicylates (<20) mg/dL U Opiates 300ng/mL cut (Negative) Ur Oxycodone Screen (Negative) Urine Methadone Screen (Negative) Acetaminophen (10-30) ug/mL Ur Barbiturates Screen (Negative) U Tricyclic Antidepress (Negative) Ur Phencyclidine Scrn (Negative) Ur Amphetamines Screen (Negative) U Methamphetamines Scrn (Negative) Ur MDMA Scrn (Ecstasy) (Negative) U Benzodiazepines Scrn (Negative) Urine Cocaine Screen (Negative) U Marijuana (THC) Screen (Negative) Ethyl Alcohol ( - 10) mg/dL SARS-CoV-2 (PCR) Negative Negative (Negative) Urine Dip Bedside Urine Glucose Negative Bedside Urine Bilirubin - Negative Bedside Urine Ketone - Negative Urine Specific [place] 1.000 Bedside Urine Occult Blood - Negative Bedside Urine pH 6.0 Bedside Urine Protein - Negative Bedside Urine Urobilinogen - Negative Bedside Urine Nitrite - Negative Bedside Urine Leukocytes - Negative Esterase ECG Data Interpretation: Normal sinus rhythm rate 100 FL interval 130 QRS [address] changes or T-wave inversions MDM Narrative Medical decision making narrative: Patient starting to wake up, wanting to leave. At this time patient has had multiple ED visits he is a danger to himself if he continues to drink. Attempting to call DCR. He is requiring IV medications phenobarbital Ativan and Benadryl he is allergic to Haldol. Dr Geronimo: I received turned over. Reviewed patient's history and physical exam. He is had no further seizure like activity. Patient has been detained by DCR under Rashad's Law. Patient was informed of this. There was an episode where he became agitated and tried to leave the room. He was given further doses of Ativan and Benadryl to calm him down. He did tolerate oral intake. Care turned over to Dr. Hopkins to continue to observe until patient can be transported. 05/08/22 Sandeep-patient seen evaluated by myself today awake and alert shaking. He is started on Librium q.6. Getting more agitated stuffing toilet paper down the toilet. Given phenobarbital Benadryl and Ativan. He also has tried to leave. The door remains locked in in seclusion because he frequently is leaving. They were attempts to open the door but every time he tries to leave. He is certainly not trustworthy. He is given medication for withdrawal and delirium tremens. Anticipate patient going to rehab facility tomorrow morning patient signed out to Dr. Geronimo <David Geronimo, DO - Last Filed: 05/09/22 04:57> Lab Data Labs: Lab Results 05/07/22 05/07/22 05/07/22 Range/Units 11:33 11:33 11:33 WBC 6.2 (4.5-11.0) X10^3/uL RBC 3.53 L (4.5-5.9) X10^6/uL Hgb 10.5 L (13.5-17.5) g/dL Hct 31.5 L (41-53) % MCV 89.1 (80-100) fL MCH 29.8 (26-34) PG MCHC 33.4 (30-36) % RDW 15.8 H (11.6-14.8) % Plt Count 116 L (150-400) X10^3/uL Neut % (Auto) 72.8 (50-75) % Lymph % (Auto) 16.9 L (25-40) % [place] % (Auto) 9.9 (3-14) % Eos % (Auto) 0.1 L (2-4) % Baso % (Auto) 0.3 (0-2) % Neut # (Auto) 4500 (6434-6016) /uL Lymph # (Auto) 1000 L (8663-4581) /uL [place] # (Auto) 600 (0-900) /uL Eos # (Auto) 0 (0-450) /uL Baso # (Auto) 0 (0-100) /uL Sodium 139 (137-145) mmol/L Potassium 3.7 (3.4-5.1) mmol/L Chloride 99 (98-107) mmol/L Carbon Dioxide 25 (22-32) mmol/L BUN 11 (9-20) mg/dL Creatinine 0.48 L (0.66-1.25) mg/dL Estimated GFR > 60 (>60) mL/min BUN/Creatinine Ratio 22.9 H (6-22) Glucose 98 (70-100) mg/dL Lactate 3.4 H (0.7-2.1) mmol/L Calcium 8.2 L (8.4-10.2) mg/dL Total Bilirubin 0.8 (0.2-1.3) mg/dL AST 37 (17-59) IU/L ALT 22 (<50) IU/L Alkaline Phosphatase 70 (38-126) U/L Total Creatine Kinase 135 (55-170) U/L CK-MB (CK-2) 1.28 (<2.37) ng/mL CK-MB (CK-2) Rel Index 0.9 L (1.5-5.0) % Troponin I < 0.012 (0.01-0.034) ng/mL Total Protein 6.9 (6.3-8.2) g/dL Albumin 3.9 (3.5-5.0) g/dL Globulin 3.0 (1.7-4.1) g/dL Albumin/Globulin Ratio 1.3 (1.0-2.8) Salicylates < 1.0 (<20) mg/dL U Opiates 300ng/mL cut (Negative) Ur Oxycodone Screen (Negative) Urine Methadone Screen (Negative) Acetaminophen < 10 (10-30) ug/mL Ur Barbiturates Screen (Negative) U Tricyclic Antidepress (Negative) Ur Phencyclidine Scrn (Negative) Ur Amphetamines Screen (Negative) U Methamphetamines Scrn (Negative) Ur MDMA Scrn (Ecstasy) (Negative) U Benzodiazepines Scrn (Negative) Urine Cocaine Screen (Negative) U Marijuana (THC) Screen (Negative) Ethyl Alcohol 298 H ( - 10) mg/dL SARS-CoV-2 (PCR) (Negative) 05/07/22 05/07/22 05/07/22 Range/Units 12:25 14:40 15:54 WBC (4.5-11.0) X10^3/uL RBC (4.5-5.9) X10^6/uL Hgb (13.5-17.5) g/dL Hct (41-53) % MCV (80-100) fL MCH (26-34) PG MCHC (30-36) % RDW (11.6-14.8) % Plt Count (150-400) X10^3/uL Neut % (Auto) (50-75) % Lymph % (Auto) (25-40) % [place] % (Auto) (3-14) % Eos % (Auto) (2-4) % Baso % (Auto) (0-2) % Neut # (Auto) (1177-4399) /uL Lymph # (Auto) (5892-9414) /uL [place] # (Auto) (0-900) /uL Eos # (Auto) (0-450) /uL Baso # (Auto) (0-100) /uL Sodium (137-145) mmol/L Potassium (3.4-5.1) mmol/L Chloride (98-107) mmol/L Carbon Dioxide (22-32) mmol/L BUN (9-20) mg/dL Creatinine (0.66-1.25) mg/dL Estimated GFR (>60) mL/min BUN/Creatinine Ratio (6-22) Glucose (70-100) mg/dL Lactate 2.3 H (0.7-2.1) mmol/L Calcium (8.4-10.2) mg/dL Total Bilirubin (0.2-1.3) mg/dL AST (17-59) IU/L ALT (<50) IU/L Alkaline Phosphatase (38-126) U/L Total Creatine Kinase (55-170) U/L CK-MB (CK-2) (<2.37) ng/mL CK-MB (CK-2) Rel Index (1.5-5.0) % Troponin I (0.01-0.034) ng/mL Total Protein (6.3-8.2) g/dL Albumin (3.5-5.0) g/dL Globulin (1.7-4.1) g/dL Albumin/Globulin Ratio (1.0-2.8) Salicylates (<20) mg/dL U Opiates 300ng/mL cut Negative (Negative) Ur Oxycodone Screen Negative (Negative) Urine Methadone Screen Negative (Negative) Acetaminophen (10-30) ug/mL Ur Barbiturates Screen Positive H (Negative) U Tricyclic Antidepress Negative (Negative) Ur Phencyclidine Scrn Negative (Negative) Ur Amphetamines Screen Negative (Negative) U Methamphetamines Scrn Negative (Negative) Ur MDMA Scrn (Ecstasy) Negative (Negative) U Benzodiazepines Scrn Negative (Negative) Urine Cocaine Screen Negative (Negative) U Marijuana (THC) Screen Negative (Negative) Ethyl Alcohol 246 H ( - 10) mg/dL SARS-CoV-2 (PCR) (Negative) 05/07/22 05/08/22 Range/Units 17:34 18:15 WBC (4.5-11.0) X10^3/uL RBC (4.5-5.9) X10^6/uL Hgb (13.5-17.5) g/dL Hct (41-53) % MCV (80-100) fL MCH (26-34) PG MCHC (30-36) % RDW (11.6-14.8) % Plt Count (150-400) X10^3/uL Neut % (Auto) (50-75) % Lymph % (Auto) (25-40) % [place] % (Auto) (3-14) % Eos % (Auto) (2-4) % Baso % (Auto) (0-2) % Neut # (Auto) (1653-0155) /uL Lymph # (Auto) (5916-6447) /uL [place] # (Auto) (0-900) /uL Eos # (Auto) (0-450) /uL Baso # (Auto) (0-100) /uL Sodium (137-145) mmol/L Potassium (3.4-5.1) mmol/L Chloride (98-107) mmol/L Carbon Dioxide (22-32) mmol/L BUN (9-20) mg/dL Creatinine (0.66-1.25) mg/dL Estimated GFR (>60) mL/min BUN/Creatinine Ratio (6-22) Glucose (70-100) mg/dL Lactate (0.7-2.1) mmol/L Calcium (8.4-10.2) mg/dL Total Bilirubin (0.2-1.3) mg/dL AST (17-59) IU/L ALT (<50) IU/L Alkaline Phosphatase (38-126) U/L Total Creatine Kinase (55-170) U/L CK-MB (CK-2) (<2.37) ng/mL CK-MB (CK-2) Rel Index (1.5-5.0) % Troponin I (0.01-0.034) ng/mL Total Protein (6.3-8.2) g/dL Albumin (3.5-5.0) g/dL Globulin (1.7-4.1) g/dL Albumin/Globulin Ratio (1.0-2.8) Salicylates (<20) mg/dL U Opiates 300ng/mL cut (Negative) Ur Oxycodone Screen (Negative) Urine Methadone Screen (Negative) Acetaminophen (10-30) ug/mL Ur Barbiturates Screen (Negative) U Tricyclic Antidepress (Negative) Ur Phencyclidine Scrn (Negative) Ur Amphetamines Screen (Negative) U Methamphetamines Scrn (Negative) Ur MDMA Scrn (Ecstasy) (Negative) U Benzodiazepines Scrn (Negative) Urine Cocaine Screen (Negative) U Marijuana (THC) Screen (Negative) Ethyl Alcohol ( - 10) mg/dL SARS-CoV-2 (PCR) Negative Negative (Negative) Urine Dip Bedside Urine Glucose Negative Bedside Urine Bilirubin - Negative Bedside Urine Ketone - Negative Urine Specific [place] 1.000 Bedside Urine Occult Blood - Negative Bedside Urine pH 6.0 Bedside Urine Protein - Negative Bedside Urine Urobilinogen - Negative Bedside Urine Nitrite - Negative Bedside Urine Leukocytes - Negative Esterase MDM Narrative Medical decision making narrative: Patient starting to wake up, wanting to leave. At this time patient has had multiple ED visits he is a danger to himself if he continues to drink. Attempting to call [facility]. He is requiring IV medications phenobarbital Ativan and Benadryl he is allergic to Haldol. Dr Geronimo: I received turned over. Reviewed patient's history and physical exam. He is had no further seizure like activity. Patient has been detained by [facility] under [place] Law. Patient was informed of this. There was an episode where he became agitated and tried to leave the room. He was given further doses of Ativan and Benadryl to calm him down. He did tolerate oral intake. Care turned over to Dr. Hopkins to continue to observe until patient can be transported. 05/08/22 Sandeep-patient seen evaluated by myself today awake and alert shaking. He is started on Librium q.6. Getting more agitated stuffing toilet paper down the toilet. Given phenobarbital Benadryl and Ativan. He also has tried to leave. The door remains locked in in seclusion because he frequently is leaving. They were attempts to open the door but every time he tries to leave. He is certainly not trustworthy. He is given medication for withdrawal and delirium tremens. Anticipate patient going to rehab facility tomorrow morning patient signed out to Dr. Grazyna geronimo: Patient is medically cleared. Has been calm during my shift and sleeping. Has had no seizure activity for more than 48 hours. Patient detained under [place] law. Plan is for him to be transported to rehab. Patient is stable for transport. His repeat COVID which was requested by the receiving facility is negative. <David Geronimo DO - Last Filed: 05/09/22 04:57> Critical Care Time Critical Care Time: Yes Total Critical Care Time: 60 Attestation: The high probability of a clinically significant, sudden or life threatening deterioration of the []neurologic, psychiatric system(s) required my full and direct attention, intervention and personal management. The aggregate critical care time was [60] minutes. This time is in addition to time spent performing reported procedures but includes the following: [x] Data Review and interpretation [x] Patient assessment and monitoring of vital signs [x] Documentation [x] Medication orders and management Discharge Plan Departure Patient Disposition: Xfer Psychiatric Hosp Clinical Impression: Alcohol intoxication, Alcohol abuse Prescriptions: No Action clonidine HCl 0.1 mg tablet 0.1 mg PO BEDTIME sertraline 100 mg tablet 150 mg PO DAILY lamotrigine 25 mg tablet 25 mg PO BID buspirone 15 mg tablet 15 mg PO BID PRN (Reason: Anxiety) pregabalin 75 mg capsule 75 mg PO BID Referrals: Miscellaneous,Doctor, [Primary Care Provider] - <DO Laisha Denton Last Filed: 05/09/22 04:57> Restraint Bpmf-qi-Lmnk Evaluation Ekjh-jy-Lhpn #1: Date: 05/07/22 Time: 19:49 Patient Appearance: Inappropriate Level of Consciousness: Alert, Combative and Restless Mood Description: Angry and Hostile Ability to Follow Directions: Poor Respirations: Normal respiratory rate Cardiac: Regular Rate Circulation: Moves all extremities Behavior necessitating restraint: Agitated, Pulling at lines/tubes, ETOH/Substance Abuse and Violent Restraint risks explained to patient: No Restraint risks explained to family: No Reaction to Intervention: Other (Restraints just initiated)
[2022-05-07 14:22] VITALS: BP 111/58; PULSE 83; RESP 21; O2SAT 97
--- NOTE | 2022-05-07 14:39 | PC.NURSE ---
pt. requested something to drink, was given raven ashley.
[2022-05-07 14:58] VITALS: BP 115/72; PULSE 104
[2022-05-07] MEDS: PHENobarbital 65 MG/ML VIAL 260 MG IV (15:01)
[2022-05-07 15:02] LABS: Lactate 2HR (Lactic Acid Rflx) 2.3 mmol/L (0.7-2.1)
[2022-05-07] MEDS: diphenhydrAMINE 50 MG/ML VIAL IV (15:02)
[2022-05-07 16:04] LABS: Ethanol (ETOH) 246 mg/dL
--- NOTE | 2022-05-07 16:50 | PC.NURSE ---
pt switched to hospital bed. repositioned. restraints reapplied.
[2022-05-07 16:52] VITALS: BP 158/84; PULSE 102; O2SAT 100
[2022-05-07 18:06] LABS: UR Morphine/Opiate cutoff 300 Negative (Negative); Ur Creatinine Normal (Normal); Ur Specific Gravity Normal (Normal); Urine Amphetamines Negative (Negative); Urine Cocaine Negative (Negative); Urine MDMA Negative (Negative); Urine Methamphetamines Negative (Negative); Urine Phencyclidine Negative (Negative); Urine Tetrahydrocannabinol Negative (Negative); Urine pH Normal (Normal)
[2022-05-07 18:07] LABS: Urine Barbiturates Positive (Negative); Urine Benzodiazepines Negative (Negative); Urine Methadone Negative (Negative); Urine Oxycodone Negative (Negative); Urine Tricyclic Antidepressant Negative (Negative)
[2022-05-07 18:52] LABS: COVID19 -Nasal RAPID Negative (Negative)
--- NOTE | 2022-05-07 19:03 | PC.NURSE ---
Addendum entered by Cyndy Richard CNA 05/07/22 19:42: FARM MECHANIC APPRENTICE note: when trying to clean up after patient pulled his IV out, patient attempted to bite me. Cooker Sulfite student witnessed. Patient took off left leg restraint. He is attempting to take off restraints. Nurse Bebe Saldana and Helen alerted. Per Bebe LOYOLA, took out equipment of room. Original Note: FARM MECHANIC APPRENTICE note: introduced self to patient, found patient attempting to chew restraints off. Alerted MILLA Cervantes.
--- NOTE | 2022-05-07 19:08 | PC.NURSE ---
Pt requested an patent attorney from [facility], patent attorney called and pt okayed to talk to them, phone passed on to Sitter to assist pt with phone call.
--- NOTE | 2022-05-07 19:10 | PC.NURSE ---
Pt requested to talk to an attorney law clerk from [facility], attorney law clerk called and pt okayed to talk to them, phone passed to sitter to assist pt with call.
--- NOTE | 2022-05-07 19:15 | PC.NURSE ---
pt was put on restraints at 15:50 while on restraints pt tried to bite me and i called for assistant therapy aide, ripped off his pulse ox probe by biting it off
--- NOTE | 2022-05-07 20:00 | PC.NURSE ---
Addendum entered by Cyndy Richard CNA 05/07/22 21:17: CARTER note: patient said since I'm doing so good, can you ask the good doctor if I can go out and have a cigarette? I said that I don't think we do that here. He said Well you didn't even asked and it would be a good emma effort. Addendum entered by Cyndy Richard CNA 05/07/22 20:44: CARTER note: patient at door, talking, asking for a book, wanting to leave, talking kind of non-stop, frowning, grimacing, etc. Original Note: CARTER note: patient is standing at the window, talking, wanting to go home, wearing a sheet, c/o the white reddy and the white sound.
--- NOTE | 2022-05-07 21:37 | PC.NURSE ---
TRAILER MECHANIC note: patient went to use the bathroom. He shut the bathroom door so I couldn't see him. I used the speaker and asked him to open the door. He ignored me. I told MILLA Andrade. We attempted to get him out of the bathroom and back in bed when he decided he was going to fight to get out of the room. He required roving machine operator student Darrius and Doctor Grazyna to get back into the bed. Got patient a snack and he asked for reading material. When Alissa RN got him extra snacks, he pushed his way out of the room again requiring staff to get him back into bed. Shut the door. Staff aware of his behaviors. Patient currently walking around in a blanket around his waist and was able to open the bathroom door again. MILLA Andrade aware. When patient is asleep I will attempt to lock the door again.
[2022-05-07] MEDS: diphenhydrAMINE 50 MG/ML VIAL IM (21:49)
[2022-05-07] MEDS: LORazepam 2 MG/ML INJ IM (21:49)
--- NOTE | 2022-05-07 22:18 | PC.NURSE ---
At 2149 Pt required medication, pt had been in the bathroom, refusing to come out, when this RN and the LACEWORKER went in to assist him, he attempted to leave the room, pushed the staff and clung to the doorway. Dr Geronimo and other staff assisted in keeping the patient in the room and getting him back to bed, Ativan and Benadryl ordered by Grazyna and given in left thigh. Patient requested reading material and food, he was given a sandwich, when staff offered another he attempted to leave the room again. Staff assist him back to the room. Constant observations in place, Pt up and pacing in the room.
--- NOTE | 2022-05-07 22:39 | PC.NURSE ---
HOTEL RESERVATION AGENT note: patient moved hospital bed in room. Patient is continuously rearranging bed linen in the room.
--- NOTE | 2022-05-07 23:24 | PC.NURSE ---
At 2315, pt in an attempt to get out of the room, he started ramming his bed into the reddy and the outside secured door. The bed was removed with the assist of several staff and Dr Geronimo, Dr Geronimo explained very clearly that pt need to calm down and offered medication. Pt verbally agreed to meds but then attempted to get out of the room again. Dr Geronimo assist patient back into the room. 1:1 monitoring continues.
--- NOTE | 2022-05-07 23:27 | PC.NURSE ---
MAJOR GIFTS MANAGER note: heard a loud noise. Patient was attempting to kirk hospital bed through the outside door multiple times. Alerted MILLA Andrade. aquatics lifeguard came in because he saw it on the camera. With staff was able to get hospital bed out of the room and put a mat on floor. Patient attempted to get out of the room again. Patient has blankets and was told to lay down.
--- NOTE | 2022-05-08 00:32 | PC.NURSE ---
LAUNDRY SORTER note: Patient was laying in bed, and I went to type/chart, heard a thud. Patient at window staring at me and making a loogie.
[2022-05-08] MEDS: LORazepam 0.5 MG TABLET 2 MG PO (00:36)
--- NOTE | 2022-05-08 00:41 | PC.NURSE ---
At this time, pt was cooperative with staff, requesting a sandwich, was given a sandwich and water, spoke with pt about Ativan to assist in his anxiety and withdrawal sx, he agreed to take it and was cooperative in taking it.
--- NOTE | 2022-05-08 04:23 | PC.NURSE ---
FILAMENT TESTER note: lab wanted to draw. I asked Abhinav if it would be okay. He said no. Told lab and told my RN. Patient refused. Patient in bed sleeping.
--- NOTE | 2022-05-08 06:01 | PC.NURSE ---
LOCAL TELEPHONE OPERATOR note: patient is up and awake. Wants to know about breakfast, the paperwork he has to fill out for the day. Explained that it's still early in the morning and that we would discuss this later and that breakfast comes at 0800.
--- NOTE | 2022-05-08 06:31 | PC.NURSE ---
scale manager note: opened the door a little bit, and allowing to stay open. Patient is sleeping on mat on floor.
--- NOTE | 2022-05-08 06:32 | PC.NURSE ---
Addendum entered by Lupe Narayanan R.N. 05/08/22 06:33: Pt refused to have blood drawn for 0500 labs Original Note: Pt is sleeping soundly, door unlocked, 1:1 observation continues.
--- NOTE | 2022-05-08 07:20 | PC.NURSE ---
Report received - assumed care of pt at this time - resting quietly in the room on a mattress on the floor - respirations equal and unlabored bilaterally - sitter at bedside
--- NOTE | 2022-05-08 08:00 | PC.NURSE ---
No changes in pt status at this time - sitter remains at bedside
--- NOTE | 2022-05-08 08:26 | PC.NURSE ---
No changes in pt status - continues to rest easy - sitter at bedside
--- NOTE | 2022-05-08 08:40 | PC.NURSE ---
given warm blankets for comfort and breakfast tray - remains calm and cooperative - pleasant at this time
--- NOTE | 2022-05-08 09:00 | PC.NURSE ---
Ate breakfast - using bathroom - wandering around room - calm
--- NOTE | 2022-05-08 09:36 | PC.NURSE ---
resting quietly on mattress - no needs voiced - PWD with respirations equal and unlabored bilaterally
--- NOTE | 2022-05-08 10:30 | PC.NURSE ---
Pt having difficulty settling down - wants to go home - attempts at redirection minimally effective
--- NOTE | 2022-05-08 10:39 | PC.NURSE ---
MERCHANDISE DISPLAYER note: Patient requested clothing. Paper scrubs were provided. Patient is awake, pacing, and at the door. the door is remained closed due to protocol. MILLA fallon.
--- NOTE | 2022-05-08 11:30 | PC.NURSE ---
No changes in pt behavior - provided coloring and sudoko and crossword puzzles to assist him being occupied
--- NOTE | 2022-05-08 11:47 | PC.NURSE ---
Customer Strategy Manager Note: Patient is very agitated and pacing around the room. Patient tried to leave and forced himself out the door that was open per MD request. RNs and I safely got patient back in room. Door is now closed and RN Deana grabbing scheduled meds. MD aware.
[2022-05-08] MEDS: chlordiazePOXIDE 25 MG CAPSULE 50 MG PO (11:57)
--- NOTE | 2022-05-08 12:30 | PC.NURSE ---
Continues with ramped intermittent behavior - becomes calm then states that he wants to be let go - pushing on the door - occasionally rests on the mattress with eyes closed - attempts to calm and quietly discuss with him - does not respond all the time to the attempts
--- NOTE | 2022-05-08 13:30 | PC.NURSE ---
No changes in behavior patterns
[2022-05-08] MEDS: PHENobarbital 65 MG/ML VIAL 130 MG IM (13:33)
--- NOTE | 2022-05-08 14:30 | PC.NURSE ---
No changes in pt behavior pattern
--- NOTE | 2022-05-08 15:12 | PC.NURSE ---
Consistently and repetitively asking to talk to a nurse or doc
--- NOTE | 2022-05-08 15:30 | PC.NURSE ---
No changes in pt behaviors
--- NOTE | 2022-05-08 15:30 | PC.NURSE ---
In the bathroom
--- NOTE | 2022-05-08 16:00 | PC.NURSE ---
Starting to cooperate
[2022-05-08] MEDS: ACETAMINOPHEN 325 MG TABLET 650 MG PO (16:11)
[2022-05-08] MEDS: IBUPROFEN 400 MG TABLET PO (16:11)
[2022-05-08] MEDS: LORazepam 2 MG/ML INJ 1 MG IM (16:12)
[2022-05-08] MEDS: diphenhydrAMINE 50 MG/ML VIAL IM (16:12)
[2022-05-08] MEDS: PHENobarbital 65 MG/ML VIAL 260 MG IM (16:20)
--- NOTE | 2022-05-08 16:21 | PC.NURSE ---
Pt found stuffing toilet paper down the toilet in attempt to flood. Got out of bathroom when asked and bathroom locked. Urinal available. Requested medication for withdrawl. See CIWA score. Medicated as ordered. Pt followed directions. Requested regular bed. Ordered from housekeeping. Door open. Verbally redirected. Taking po fluids well.
--- NOTE | 2022-05-08 16:30 | PC.NURSE ---
No changes in behavior pattern - amping up more - demanding medication to help him sleep - MD to bedside
--- NOTE | 2022-05-08 17:07 | PC.NURSE ---
Was verbally redirected, did not comply, attempted to leave room, refused return, became verbally abusive to staff and returned to room 13. Attempted to put excess toilet paper and flush toilet. Toilet paper removed from room.
--- NOTE | 2022-05-08 17:30 | PC.NURSE ---
Resting more - quieter at this time
--- NOTE | 2022-05-08 18:30 | PC.NURSE ---
Continues to be slightly more cooperative
[2022-05-08 18:43] LABS: COVID19 -Nasal RAPID Negative (Negative)
--- NOTE | 2022-05-08 19:15 | PC.NURSE ---
Report to John, RN - care relinquished at this time
[2022-05-09] MEDS: chlordiazePOXIDE 25 MG CAPSULE 50 MG PO ×2 (00:08→05:43)
--- NOTE | 2022-05-09 00:22 | PC.NURSE ---
VISOR INSTALLER note: patient resting on mat.
[2022-05-09 06:07] VITALS: BP 136/97; PULSE 95; RESP 18; TEMP 36.6; O2SAT 100
== END 2022-05-09 06:10 ==
PROVIDERS: Emergency Medicine; Emergency Provider Emergency Medicine
DX: F10.129 Alcohol abuse with intoxication, unspecified (principal); Y90.8 Blood alcohol level of 240 mg/100 ml or more; Z20.822 Contact with and (suspected) exposure to COVID-19
CPT/HCPCS: 36415; 80053; 80305; 80320; 80329; 81003; 82550; 82553; 83605; 84484; 85025; 87635; 96372; 99285; 99291; C9803; G0480; J1200; J2060; J2560

== ENCOUNTER 2022-11-17 13:14 | Emergency (ER) | payer OTHER, MEDICAID, SELFPAY ==
[2021-07-26 09:14] VITALS: PULSE 51; RESP 16; O2SAT 98
[2021-07-26 10:17] VITALS: RESP 15
[2022-03-15 21:17] VITALS: BMI 22.7
[2022-11-17] VITALS (41 sets, daily range): BP systolic 124–161; BP diastolic 61–105; PULSE 86–109; RESP 6–14; TEMP 36.9; O2SAT 90–100
--- NOTE | 2022-11-17 13:29 | ED.GENADULT ---
HPI - General Adult <David Geronimo DO - Last Filed: 11/18/22 07:02> General Chief complaint: Unresponsive Stated complaint: ETOH Time Seen by Provider: 11/17/22 13:23 Source: EMS Mode of arrival: EMS Limitations: altered mental status History of Present Illness HPI narrative: Patient is a 32-year-old male. Is well known to myself in this emergency department. Does have a history of alcohol abuse. EMS was called to the patient's apartment by his sister. He was found sitting on the steps in front of his apartment. Was somewhat responsive to EMS. Initially did not want to be brought to the emergency department but was convinced by his sister. There were no signs of trauma. Patient unable to provide any HPI upon arrival here to the ER. Related Data Home Medications Medication Instructions Recorded Confirmed buspirone 15 mg tablet 15 mg PO BID PRN Anxiety 03/31/22 03/31/22 clonidine HCl 0.1 mg tablet 0.1 mg PO BEDTIME 03/31/22 03/31/22 pregabalin 75 mg capsule 75 mg PO BID 03/31/22 03/31/22 sertraline 100 mg tablet 150 mg PO DAILY 03/31/22 03/31/22 lamotrigine 100 mg tablet 100 mg PO 11/17/22 Allergies Allergy/AdvReac Type Severity Reaction Status Date / Time shrimp [SHRIMP] Allergy Severe THROAT Verified 05/02/22 17:34 SWELLING/HIVES diazepam [From VALIUM] Allergy Intermediate LEG Verified 05/02/22 17:34 SWELLING haloperidol [From HALDOL] Allergy Unknown DYSTONIA Verified 05/02/22 17:34 naproxen [NAPROXEN] AdvReac Mild NAUSEA/GI Verified 05/02/22 17:34 DISTRESS Review of Systems <David Geronimo DO - Last Filed: 11/18/22 07:02> Review of Systems ROS Unobtainable: Unobtainable due to mental condition Patient History <David Geronimo DO - Last Filed: 11/18/22 07:02> Medical History Alcoholism Depression Eating disorder Epilepsy Low back pain Surgical History History of ankle surgery Family History (Reviewed 05/07/22 @ 02:48 by Tess Collier [facility]) Grandfather Type 2 diabetes mellitus without complication, unspecified skilled nursing insulin use status Grandmother Type 2 diabetes mellitus without complication, unspecified skilled nursing insulin use status Mother Uncomplicated asthma, unspecified asthma severity Sister Uncomplicated asthma, unspecified asthma severity Unknown No problems noted. Social History household members: spouse, family and children Smoking Status: Current every day smoker alcohol intake: current Smoking Status: Current every day smoker alcohol intake frequency: 3 or more drinks per day Alcohol type: hard liquor and other Substance Use Type: does not use Exam <DO Laisha Denton Last Filed: 11/18/22 07:02> Initial Vital Signs Initial Vital Signs: Vital Signs Temperature 98.4 F 11/17/22 13:20 Pulse Rate 98 H 11/17/22 13:20 Respiratory Rate 14 11/17/22 13:20 Blood Pressure 132/78 11/17/22 13:20 Pulse Oximetry 97 11/17/22 13:20 Oxygen Delivery Method Room Air 11/17/22 13:20 HENMT Head: normal to inspection and atraumatic Resp Effort & Inspection: normal respiratory effort Auscultation: clear to auscultation bilaterally Cardio Rate: regular rate Rhythm: regular rhythm GI Inspection: normal to inspection Neuro Other: Does move all 4 extremities but is minimally responsive to deep stimulation. Extrem General: capillary refill normal Psych Appearance: disheveled <Edward Rg DO - Last Filed: 11/20/22 06:52> Initial Vital Signs Initial Vital Signs: Vital Signs Temperature 98.4 F 11/17/22 13:20 Pulse Rate 98 H 11/17/22 13:20 Respiratory Rate 14 11/17/22 13:20 Blood Pressure 132/78 11/17/22 13:20 Pulse Oximetry 97 11/17/22 13:20 Oxygen Delivery Method Room Air 11/17/22 13:20 Course <DO Laihsa Denton Last Filed: 11/18/22 07:02> Orders Ordered: Discontinued Medications Sodium Chloride (Normal Saline 0.9%) 1,000 mls @ 125 mls/hr IV CONT HOLGER Last Infusion: 11/17/22 23:00 Dose: 0 mls/hr Documented By: Admin: 11/17/22 14:58 Dose: 125 mls/hr Documented By: ST Thiamine HCl 200 mg/ Sodium (Chloride) 102 mls @ 408 mls/hr IV DAILY HOLGER Last Infusion: 11/17/22 15:05 Dose: 408 mls/hr Documented By: Admin: 11/17/22 14:54 Dose: 408 mls/hr Documented By: ST Vital Signs Vital signs: Vital Signs - 8 hr 11/18/22 05:28 Temperature 98 F Pulse Rate 88 Respiratory Rate 18 Blood Pressure 136/74 Pulse Oximetry 98 Oxygen Delivery Method Room Air <Edward Rg DO - Last Filed: 11/20/22 06:52> Orders Ordered: Discontinued Medications Sodium Chloride (Normal Saline 0.9%) 1,000 mls @ 125 mls/hr IV CONT HOLGER Last Infusion: 11/17/22 23:00 Dose: 0 mls/hr Documented By: Admin: 11/17/22 14:58 Dose: 125 mls/hr Documented By: ST Thiamine HCl 200 mg/ Sodium (Chloride) 102 mls @ 408 mls/hr IV DAILY HOLGER Last Infusion: 11/17/22 15:05 Dose: 408 mls/hr Documented By: Admin: 11/17/22 14:54 Dose: 408 mls/hr Documented By: ST Vital Signs Vital signs: Vital Signs - 8 hr 11/18/22 05:28 Temperature 98 F Pulse Rate 88 Respiratory Rate 18 Blood Pressure 136/74 Pulse Oximetry 98 Oxygen Delivery Method Room Air Medical Decision Making <David Geronimo DO - Last Filed: 11/18/22 07:02> Medical Records Medical records reviewed: Yes I reviewed the patient's medical records. Lab Data Lab results reviewed: Yes I reviewed the patient's lab results. 11/17/22 13:40 11/17/22 13:40 Labs: Lab Results 11/17/22 11/17/22 Range/Units 13:40 13:40 WBC 6.4 (4.5-11.0) X10^3/uL RBC 3.57 L (4.5-5.9) X10^6/uL Hgb 9.7 L (13.5-17.5) g/dL Hct 29.7 L (41-53) % MCV 83.1 (80-100) fL MCH 27.2 (26-34) PG MCHC 32.7 (30-36) % RDW 16.8 H (11.6-14.8) % Plt Count 511 H (150-400) X10^3/uL Neut % (Auto) 46.1 L (50-75) % Lymph % (Auto) 37.1 (25-40) % Parke % (Auto) 5.5 (3-14) % Eos % (Auto) 9.2 H (2-4) % Baso % (Auto) 2.1 H (0-2) % Neut # (Auto) 2900 (7748-0989) /uL Lymph # (Auto) 2400 (2733-4915) /uL Parke # (Auto) 400 (0-900) /uL Eos # (Auto) 600 H (0-450) /uL Baso # (Auto) 100 (0-100) /uL Sodium 144 (137-145) mmol/L Potassium 3.5 (3.4-5.1) mmol/L Chloride 108 H (98-107) mmol/L Carbon Dioxide 24 (22-32) mmol/L BUN 10 (9-20) mg/dL Creatinine 0.49 L (0.66-1.25) mg/dL Estimated GFR > 60 (>60) mL/min BUN/Creatinine Ratio 20.4 (6-22) Glucose 98 (70-100) mg/dL Calcium 7.4 L (8.4-10.2) mg/dL Ethyl Alcohol 415 H* ( - 10) mg/dL MDM Narrative Medical decision making narrative: Patient has no signs of trauma. His alcohol level was elevated. A nasal airway was placed for airway management. There has been no indication for intubation. Will continue to observe patient until he becomes clinically sober. Care turned over to Dr. Bentley to follow-up and disposition. <Edward Rg, - Last Filed: 11/20/22 06:52> Lab Data Labs: Lab Results 11/17/22 11/17/22 Range/Units 13:40 13:40 WBC 6.4 (4.5-11.0) X10^3/uL RBC 3.57 L (4.5-5.9) X10^6/uL Hgb 9.7 L (13.5-17.5) g/dL Hct 29.7 L (41-53) % MCV 83.1 (80-100) fL MCH 27.2 (26-34) PG MCHC 32.7 (30-36) % RDW 16.8 H (11.6-14.8) % Plt Count 511 H (150-400) X10^3/uL Neut % (Auto) 46.1 L (50-75) % Lymph % (Auto) 37.1 (25-40) % Parke % (Auto) 5.5 (3-14) % Eos % (Auto) 9.2 H (2-4) % Baso % (Auto) 2.1 H (0-2) % Neut # (Auto) 2900 (7402-9802) /uL Lymph # (Auto) 2400 (9995-0279) /uL Parke # (Auto) 400 (0-900) /uL Eos # (Auto) 600 H (0-450) /uL Baso # (Auto) 100 (0-100) /uL Sodium 144 (137-145) mmol/L Potassium 3.5 (3.4-5.1) mmol/L Chloride 108 H (98-107) mmol/L Carbon Dioxide 24 (22-32) mmol/L BUN 10 (9-20) mg/dL Creatinine 0.49 L (0.66-1.25) mg/dL Estimated GFR > 60 (>60) mL/min BUN/Creatinine Ratio 20.4 (6-22) Glucose 98 (70-100) mg/dL Calcium 7.4 L (8.4-10.2) mg/dL Ethyl Alcohol 415 H* ( - 10) mg/dL MDM Narrative Medical decision making narrative: Patient has no signs of trauma. His alcohol level was elevated. A nasal airway was placed for airway management. There has been no indication for intubation. Will continue to observe patient until he becomes clinically sober. Care turned over to Dr. gR to follow-up and disposition. [1800] (Arcenio) Patient received in sign out from [Grazyna]. I have reviewed the clinical course and performed an independent history and physical exam. Patient resting comfortably, guarding airway 2315 -patient awake and alert, walking a straight Line without stumbling to the bathroom, speaking clearly 0330 -patient is speaking clearly without slurring [32] year old patient presents with alcohol intoxication Multiple etiologies for patient's symptoms considered including, but not limited to: [Alcohol intoxication versus other cause of toxic or metabolic encephalopathy versus other] Prior Charts reviewed in our EMR Primary Historian: patient Patient's symptoms improved over duration of stay with above-stated therapies. Findings and discharge diagnosis discussed with patient/family followed by verbalization of understanding Return precautions discussed with patient/family whom verbalize understanding of diagnosis and plan. Discharge Plan Departure Patient Disposition: Home Clinical Impression: Alcohol intoxication Instructions: Naloxone for Opiate Overdose - ALLAN Activity Restrictions/Additional Instructions: *You have been diagnosed with [ alcohol intoxication] *What to do: *Please continue to take your regular medications as directed. [ ] New medication prescriptions sent to your pharmacy: [ ] [ ] New medication written as a paper prescription [ ] No new medications given *Please follow up with your primary care provider in 2-3 days, call for an appointment. Let them know you were seen in the Emergency Department and that we ask that you be seen in follow up. We will electronically transmit a record of today's note if your PCP is in our system *If you do not have a primary care provider please contact the [facility] Resource line at [phone]. They will ask some questions about your medical history and help get you set up with a doctor in the community. *Return to Emergency Department if you should have any new, worsening or concerning symptoms, such as [fever greater than 101 F, shaking chills, worsening pain, persistent vomiting or other bothersome symptoms] Prescriptions: No Action clonidine HCl 0.1 mg tablet 0.1 mg PO BEDTIME sertraline 100 mg tablet 150 mg PO DAILY buspirone 15 mg tablet 15 mg PO BID PRN (Reason: Anxiety) pregabalin 75 mg capsule 75 mg PO BID lamotrigine 100 mg tablet 100 mg PO Referrals: Miscellaneous,Doctor, MD [Primary Care Provider] - Stand Alone Forms: Patient Portal/API, Naloxone Standing Order ALLAN
--- NOTE | 2022-11-17 13:51 | PC.NURSE ---
This GASKET MAKER placed seizure pads on side rails and started cardiac telemetry at request of MILLA Bhagat.
[2022-11-17 13:52] LABS: Add Manual Diff / Slide Review NO; Basophils Absolute Auto 100 /uL (0-100); Basophils Percent Auto 2.1 % (0-2); Eosinophils Absolute Auto 600 /uL (0-450); Eosinophils Percent Auto 9.2 % (2-4); Hematocrit 29.7 % (41-53); Hemoglobin 9.7 g/dL (13.5-17.5); Lymphocytes Absolute Auto 2400 /uL (1100-4500); Lymphocytes Percent Auto 37.1 % (25-40); Mean Corpuscular HGB Conc 32.7 % (30-36); Mean Corpuscular Hemoglobin 27.2 PG (26-34); Mean Corpuscular Volume 83.1 fL (80-100); Monocytes Absolute Auto 400 /uL (0-900); Monocytes Percent Auto 5.5 % (3-14); Neutrophils Absolute Auto 2900 /uL (1500-7000); Neutrophils Percent Auto 46.1 % (50-75); Platelet Count 511 X10^3/uL (150-400); Red Blood Cell Count 3.57 X10^6/uL (4.5-5.9); Red Cell Distribution Width 16.8 % (11.6-14.8); White Blood Cell Count 6.4 X10^3/uL (4.5-11.0)
[2022-11-17 14:04] LABS: BUN Creatinine Ratio 20.4 (6-22); Blood Urea Nitrogen 10 mg/dL (9-20); Calcium 7.4 mg/dL (8.4-10.2); Carbon Dioxide 24 mmol/L (22-32); Chloride 108 mmol/L (98-107); Estimated Glomerular Filt Rate > 60 mL/min (>60); Glucose 98 mg/dL (70-100); HEMOLYSIS < 15 (0-50); Potassium 3.5 mmol/L (3.4-5.1); Sodium 144 mmol/L (137-145)
[2022-11-17 14:15] LABS: Ethanol (ETOH) 415 mg/dL
[2022-11-17] MEDS: THIAMINE 200 MG in SODIUM CHLORIDE 0.9% 100 ML 408 MG IV (14:54)
[2022-11-17] MEDS: SODIUM CHLORIDE 0.9% 1,000 ML 125 ML IV (14:58)
--- NOTE | 2022-11-17 16:43 | PC.NURSE ---
Seizure precautions placed r/t history of seizure w/ withdrawl. No seizure activity noted.
--- NOTE | 2022-11-17 21:45 | PC.NURSE ---
Pt sleeping, shifting position in bed. Opens eyes in response to gentle physical stimulus, makes eye contact, does not speak.
--- NOTE | 2022-11-17 22:00 | PC.NURSE ---
Patient awake and alert, ambulated to bathroom with steady gait.
--- NOTE | 2022-11-17 22:24 | PC.NURSE ---
Pt awoke, attempted to get out of bed. Permitted staff assistance and ambulated to bathroom with steady gait. Provided urine specimen. Went back to bed and fell asleep.
--- NOTE | 2022-11-18 01:48 | PC.NURSE ---
CHECK VIEWER note: Noticed the pulse oximeter not working. I walked in and checked it. Patient had taken off pulse ox, taken it apart, and was behind patient. Put another one on, and showed RN. Patient is asleep on bed.
[2022-11-18 05:28] VITALS: BP 136/74; PULSE 88; RESP 18; TEMP 36.6; O2SAT 98
== END 2022-11-18 05:25 | disposition home or self-care (01) ==
PROVIDERS: Emergency Medicine; Emergency Provider Emergency Medicine
DX: F10.129 Alcohol abuse with intoxication, unspecified (principal); Y90.8 Blood alcohol level of 240 mg/100 ml or more
CPT/HCPCS: 36415; 80048; 80320; 85025; 96360; 96361; 99284

== ENCOUNTER 2022-11-19 08:40 | Emergency (ER) | payer OTHER, MEDICAID, SELFPAY ==
[2021-07-26 09:14] VITALS: PULSE 51; RESP 16; O2SAT 98
[2021-07-26 10:17] VITALS: RESP 15
[2022-03-15 21:17] VITALS: BMI 22.7
[2022-11-19 08:45] VITALS: BP 138/89; PULSE 115; RESP 16; TEMP 37.2; O2SAT 96; BMI 21.7
--- NOTE | 2022-11-19 09:01 | ED_ITS ---
HPI - Recheck/Abnormal Lab/Rx General Chief Complaint: Recheck/Abnormal Lab/Rx Stated Complaint: fit for nursing home Time Seen by Provider: 11/19/22 08:57 Source: patient and police Mode of arrival: other (Police) Limitations: no limitations History of Present Illness HPI narrative: Patient is a 32-year-old male. Well known to myself. Has a known history of alcohol abuse. His brought in by police for a fit for confinement. Patient states that he has been drinking this morning. There are no signs of trauma. He is no specific complaints. No pain. Related Data Home Medications Medication Instructions Recorded Confirmed buspirone 15 mg tablet 15 mg PO BID PRN Anxiety 03/31/22 03/31/22 clonidine HCl 0.1 mg tablet 0.1 mg PO BEDTIME 03/31/22 03/31/22 pregabalin 75 mg capsule 75 mg PO BID 03/31/22 03/31/22 sertraline 100 mg tablet 150 mg PO DAILY 03/31/22 03/31/22 lamotrigine 100 mg tablet 100 mg PO 11/17/22 Allergies Allergy/AdvReac Type Severity Reaction Status Date / Time shrimp [SHRIMP] Allergy Severe THROAT Verified 05/02/22 17:34 SWELLING/HIVES diazepam [From VALIUM] Allergy Intermediate LEG Verified 05/02/22 17:34 SWELLING haloperidol [From HALDOL] Allergy Unknown DYSTONIA Verified 05/02/22 17:34 naproxen [NAPROXEN] AdvReac Mild NAUSEA/GI Verified 05/02/22 17:34 DISTRESS Review of Systems Cardiovascular Comments: No chest pain Respiratory Comments: No shortness of breath Gastrointestinal Comments: No abdominal pain Patient History Medical History Alcoholism Depression Eating disorder Epilepsy Low back pain Surgical History History of ankle surgery Family History Grandfather Type 2 diabetes mellitus without complication, unspecified fdc insulin use status Grandmother Type 2 diabetes mellitus without complication, unspecified fdc insulin use status Mother Uncomplicated asthma, unspecified asthma severity Sister Uncomplicated asthma, unspecified asthma severity Unknown No problems noted. Social History household members: spouse, family and children Smoking Status: Current every day smoker alcohol intake: current Smoking Status: Current every day smoker alcohol intake frequency: 3 or more drinks per day Alcohol type: hard liquor and other Substance Use Type: does not use Exam Initial Vital Signs Initial Vital Signs: Vital Signs Temperature 98.9 F 11/19/22 08:45 Pulse Rate 115 H 11/19/22 08:45 Respiratory Rate 16 11/19/22 08:45 Blood Pressure 138/89 11/19/22 08:45 Pulse Oximetry 96 11/19/22 08:45 Oxygen Delivery Method Room Air 11/19/22 08:45 Resp Effort & Inspection: normal respiratory effort Auscultation: clear to auscultation bilaterally Cardio Rate: regular rate Rhythm: regular rhythm Neuro Other: Patient is calm and cooperative. Moves all 4 extremities Extrem Other: No gross deformities Course Vital Signs Vital signs: Vital Signs - 8 hr 11/19/22 08:45 Temperature 98.9 F Pulse Rate 115 H Respiratory Rate 16 Blood Pressure 138/89 Pulse Oximetry 96 Oxygen Delivery Method Room Air MDM - Recheck/Abnormal Lab/Rx MDM Narrative Medical decision making narrative: Patient is found fit for confinement however given his alcohol use there is a higher risk of alcohol withdrawal. I did discuss this with the arresting officer. He stated that the nursing home was also very familiar with the patient as well. I informed them that Abhinav can be taken to nursing home however he does need to be observed for withdrawal symptoms. Discharge Plan Departure Patient Disposition: Home Clinical Impression: Medical clearance for incarceration Activity Restrictions/Additional Instructions: Abhinav has been found fit for confinement however given his alcohol use history it is important that he continue to be observed for withdrawal symptoms. Prescriptions: No Action clonidine HCl 0.1 mg tablet 0.1 mg PO BEDTIME sertraline 100 mg tablet 150 mg PO DAILY buspirone 15 mg tablet 15 mg PO BID PRN (Reason: Anxiety) pregabalin 75 mg capsule 75 mg PO BID lamotrigine 100 mg tablet 100 mg PO Referrals: Miscellaneous,Doctor, MD [Primary Care Provider] - Stand Alone Forms: Patient Portal/API
[2022-11-19 09:08] VITALS: PULSE 98; RESP 14; O2SAT 99
== END 2022-11-19 09:09 | disposition home or self-care (01) ==
PROVIDERS: Emergency Provider Emergency Medicine
DX: Z00.8 Encounter for other general examination (principal)
CPT/HCPCS: 99281

== ENCOUNTER 2022-11-23 10:24 | Emergency (ER) | payer OTHER, MEDICAID, SELFPAY ==
[2021-07-26 09:14] VITALS: PULSE 51; RESP 16; O2SAT 98
[2021-07-26 10:17] VITALS: RESP 15
[2022-03-15 21:17] VITALS: BMI 22.7
[2022-11-23 10:26] VITALS: BP 129/85; PULSE 100; RESP 16; TEMP 36.7; O2SAT 99; BMI 19.8
--- NOTE | 2022-11-23 10:31 | ED_ITS ---
HPI - General Adult General Chief complaint: Toxicology Problem Stated complaint: ETOH Time Seen by Provider: 11/23/22 10:31 History of Present Illness HPI narrative: 32-year-old male daily smoker with heavy alcohol history presents by EMS for evaluation. Police have been notified and reporting libertarian states they are concerned that the patient appears drunk. He does admit to drinking. He does not have suicidal or homicidal ideations. He does not want help with detox. He is awake, alert and oriented and absent of any symptoms. He does not want to be here in wishes to leave. Related Data Home Medications Medication Instructions Recorded Confirmed buspirone 15 mg tablet 15 mg PO BID PRN Anxiety 03/31/22 03/31/22 clonidine HCl 0.1 mg tablet 0.1 mg PO BEDTIME 03/31/22 03/31/22 pregabalin 75 mg capsule 75 mg PO BID 03/31/22 03/31/22 sertraline 100 mg tablet 150 mg PO DAILY 03/31/22 03/31/22 lamotrigine 100 mg tablet 100 mg PO 11/17/22 Allergies Allergy/AdvReac Type Severity Reaction Status Date / Time shrimp [SHRIMP] Allergy Severe THROAT Verified 05/02/22 17:34 SWELLING/HIVES diazepam [From VALIUM] Allergy Intermediate LEG Verified 05/02/22 17:34 SWELLING haloperidol [From HALDOL] Allergy Unknown DYSTONIA Verified 05/02/22 17:34 naproxen [NAPROXEN] AdvReac Mild NAUSEA/GI Verified 05/02/22 17:34 DISTRESS Review of Systems Review of Systems Narrative: GENERAL: Denies chills, fatigue, malaise, fever, sweats. HEENT: Denies sinus pain, ear pain, sore throat, difficulty swallowing, dizziness. RESPIRATORY: Denies dyspnea, cough, wheezing, hemoptysis, sputum. CARDIOVASCULAR: Denies chest pain, palpitations, orthopnea, edema, GASTROINTESTINAL: Denies nausea, vomiting, abdominal pain, diarrhea, constipation, melena. : Denies dysuria, frequency, incontinence, hematuria, urinary retention. MUSCULOSKELETAL: denies weakness, joint pain, or bony pain SKIN: Denies rash, skin lesions, or other NEUROLOGIC: Denies weakness, headache, numbness, change in speech, confusion, seizures, incoordination. PSYCHIATRIC: No concerning psychosocial issues. 12 point review of systems is negative except for those stated above Patient History Medical History Alcoholism Depression Eating disorder Epilepsy Low back pain Surgical History History of ankle surgery Family History Grandfather Type 2 diabetes mellitus without complication, unspecified intermediate project manager insulin use status Grandmother Type 2 diabetes mellitus without complication, unspecified prison insulin use status Mother Uncomplicated asthma, unspecified asthma severity Sister Uncomplicated asthma, unspecified asthma severity Unknown No problems noted. Social History household members: spouse, family and children Smoking Status: Current every day smoker alcohol intake: current Smoking Status: Current every day smoker alcohol intake frequency: 3 or more drinks per day Alcohol type: hard liquor and other Substance Use Type: does not use Exam Narrative Exam Narrative: GEN: AOx3 and in no obvious distress. GCS 15. Speaking clearly without slurring. walking a straight line without stumbling. Demonstrates capacity. AOx3 EYES: Pupils are equal, round, and reactive to light and accommodation. Extraoccular muscles are intact bilaterally. There is no subconjunctival hemorrhage or exudate. CHEST: Lungs are clear to auscultation bilaterally and free of wheezes, rales, or rhonchi. Heart rate is regular rhythm, there are no murmurs, clicks, rubs, or gallops. There is no chest wall tenderness. ABD: Abdomen is soft and nontender. There is no guarding or rebound. Bowel sounds are normal in all 4 quadrants. There is no mass or organomegaly. EXT: Full painless ROM of all extremities with no loss of sensation or strength. SKIN: Warm, pink, and dry. No erythema or rash Initial Vital Signs Initial Vital Signs: Vital Signs Temperature 98.1 F 11/23/22 10:26 Pulse Rate 100 H 11/23/22 10:26 Respiratory Rate 16 11/23/22 10:26 Blood Pressure 129/85 11/23/22 10:26 Pulse Oximetry 99 11/23/22 10:26 Oxygen Delivery Method Room Air 11/23/22 10:26 Course Vital Signs Vital signs: Vital Signs - 8 hr 11/23/22 10:26 Temperature 98.1 F Pulse Rate 100 H Respiratory Rate 16 Blood Pressure 129/85 Pulse Oximetry 99 Oxygen Delivery Method Room Air Medical Decision Making MDM Narrative Medical decision making narrative: [32] year old patient presents with no complaints. Heavy drinker, denies any symptoms Prior Charts reviewed in our EMR Primary Historian: patient Patient does not wish to be here. He is alert and oriented. He is speaking clearly without slurring and able to ambulate in a straight line without stumbling. He demonstrates capacity to make his own decisions. He does not have suicidal or homicidal ideation. He does not want help with detox. He does state at some point he wishes to quit drinking but is not ready to do so at this time, we briefly discussed whether not a Librium taper was appropriate and were quick to agreed is not. He understands that he may return if he changes his mind about pursuing detox. Findings and discharge diagnosis discussed with patient/family followed by verbalization of understanding Return precautions discussed with patient/family whom verbalize understanding of diagnosis and plan Discharge Plan Departure Patient Disposition: Home Clinical Impression: Feared complaint without diagnosis, Alcohol abuse Instructions: DI for Alcohol Use Disorder Activity Restrictions/Additional Instructions: *You have been diagnosed with [alcohol abuse disorder. Per our discussion your not interested in pursuing help with detox at this time. Please return if you change your mind and we are happy to help to the best of our ability.] *What to do: *Please continue to take your regular medications as directed. *Please follow up with your primary care provider in 2-3 days, call for an appointment. Let them know you were seen in the Emergency Department and that we ask that you be seen in follow up. We will electronically transmit a record of today's note if your PCP is in our system *Return to Emergency Department if you should have any new, worsening or concerning symptoms, such as [fever greater than 101 F, shaking chills, wors ening pain, persistent vomiting or other bothersome symptoms] Prescriptions: No Action clonidine HCl 0.1 mg tablet 0.1 mg PO BEDTIME sertraline 100 mg tablet 150 mg PO DAILY buspirone 15 mg tablet 15 mg PO BID PRN (Reason: Anxiety) pregabalin 75 mg capsule 75 mg PO BID lamotrigine 100 mg tablet 100 mg PO Referrals: Alcohol [facility] [Outside] [facility] [Outside] Alcohol [facility] [Outside] [facility] [Outside] Miscellaneous,Doctor, MD [Primary Care Provider] - Stand Alone Forms: Patient Portal/API
== END 2022-11-23 10:37 | disposition home or self-care (01) ==
PROVIDERS: Emergency Provider Emergency Medicine
DX: F10.10 Alcohol abuse, uncomplicated (principal)
CPT/HCPCS: 99281